=== PATIENT | female | born 1950 | race African-American/Black ===

== ENCOUNTER 2016-05-02 16:15 | Emergency (ER) | payer OTHER ==
[2016-05-02 16:45] VITALS: BMI 31.1
--- NOTE | 2016-05-02 16:48 | PDOC ---
History of Present Illness <Genesis De La Cruz - Last Filed: 05/02/16 18:54> - General History Source: Patient, Family Exam Limitations: No Limitations - History of Present Illness Initial Comments: 05/02/16 17:53 The patient is a 65 year old female with significant past medical history of diabetes, hypertension, hyperlipidemia, [place] s/p stents x2 in march who presents today with weakness s/p mechanical fall that happened this afternoon. The patient states that she was in the bathroom when she misstepped and fell in the bathroom. She hit her forehead but denies any LOC. She also injured her bilateral shins. The patient states she is unable to walk today secondary to lightheadedness and weakness. The patient reports associated headache but denies any blurry vision. She denies any palpitations, chest pain, or SOB. She denies any abdominal pain, nausea, or vomiting. The patient denies any recent illness, fevers, or chills. 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) Diabetes: Yes HTN: Yes Hypercholesterolemia: Yes Liver Disease: Yes Suicide Attempt (Hx): No - Surgical History Cardiac Surgery: Yes (Stents) - Immunization History Immunization Up to Date: Yes - Psycho/Social/Smoking Cessation Hx Anxiety: No Suicidal Ideation: No Smoking Status: No Smoking History: Never smoked Have you smoked in the past 12 months: No Number of Cigarettes Smoked Daily: 0 If you are a former smoker, when did you quit?: 20 yrs ago Hx Alcohol Use: No Drug/Substance Use Hx: No Substance Use Type: None Hx Substance Use Treatment: No <Genesis De La Cruz - Last Filed: 05/02/16 18:54> <Mavis Wilson - Last Filed: 05/02/16 19:02> - Past Medical History Allergies/Adverse Reactions: Allergies Allergy/AdvReac Type Severity Reaction Status Date / Time No Known Allergies Allergy Verified 05/02/16 16:36 Home Medications: Ambulatory Orders Pravastatin Sodium [Pravachol -] 10 mg PO HS 01/13/13 Insulin (Novolog) [Novolog Flexpen -] 0 units SQ ACHS #0 pen 01/14/13 Mag Hydrox/Al Hydrox/Simeth [Mylanta Oral Suspension -] 30 ml PO Q6H PRN #0 cup 01/14/13 Amlodipine Besylate [Norvasc -] 5 mg PO DAILY #30 tablet 09/13/13 Aspirin [ASA -] 81 mg PO DAILY #30 tab.chew 09/13/13 Cholecalciferol (Vitamin D3) [Vitamin D3] 2,000 unit PO DAILY 07/18/15 Daclatasvir Dihydrochloride [Daklinza] 60 mg PO DAILY 07/18/15 Darunavir Ethanolate [Prezista -] 600 mg PO BID 07/18/15 Etravirine [Intelence -] 200 mg PO BID 07/18/15 Insulin (Levemir) [Levemir Flexpen -] 34 units SQ HS 07/18/15 Insulin Aspart [Novolog] 16 unit SQ TID 07/18/15 Ritonavir [Norvir] 100 mg PO BID 07/18/15 Sofosbuvir [Sovaldi] 400 mg PO DAILY 07/18/15 Gabapentin [Neurontin -] 300 mg PO TID 07/20/15 Lisinopril [Zestril] 30 mg PO DAILY 07/20/15 Amlodipine Besylate [Norvasc -] 5 mg PO DAILY tablet 07/22/15 Aspirin Coated [Ecotrin -] 81 mg PO DAILY tablet. 07/22/15 Clopidogrel Bisulfate [Plavix -] 75 mg PO DAILY tablet 07/22/15 Enoxaparin [Lovenox -] 40 mg SQ DAILY disp.syrin 07/22/15 Insulin (Levemir) [Levemir Vial] 34 units SQ HS ml 07/22/15 Metoprolol Succinate [Toprol XL -] 25 mg PO DAILY #0 tab.sr.24h 07/22/15 Pravastatin Sodium 10 mg PO HS 07/22/15 Review of Systems - Review of Systems Able to Perform ROS?: Yes Comments:: 05/02/16 17:53 GENERAL/CONSTITUTIONAL: +Weakness. No fever or chills. HEAD, EYES, EARS, NOSE AND THROAT: No change in vision. No ear pain or discharge. No sore throat. CARDIOVASCULAR: No chest pain or shortness of breath. RESPIRATORY: No cough, wheezing, or hemoptysis. GASTROINTESTINAL: No nausea, vomiting, diarrhea or constipation. GENITOURINARY: No dysuria, frequency, or change in urination. MUSCULOSKELETAL: +Bilateral castellanos pain. No joint or muscle swelling or pain. No neck or back pain. SKIN: No rash NEUROLOGIC: +Headache. No vertigo, loss of consciousness, or change in strength/ sensation. ENDOCRINE: No increased thirst. No abnormal weight change. HEMATOLOGIC/LYMPHATIC: No anemia, easy bleeding, or history of blood clots. ALLERGIC/IMMUNOLOGIC: No hives or skin allergy. 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 L sided vision intact. ENT: Auricles normal inspection, hearing grossly normal, nares patent, oropharynx clear without exudates. Moist mucosa NECK: Normal ROM, supple, no lymphadenopathy, JVD, or masses LUNGS: Breath sounds equal, clear to auscultation bilaterally. No wheezes, and no crackles HEART: Regular rate and rhythm, normal S1 and S2, no murmurs, rubs or gallops ABDOMEN: Soft, nontender, normoactive bowel sounds. No guarding, no rebound. No masses EXTREMITIES: Normal range of motion, no edema. No clubbing or cyanosis. No cords. +Ecchymosis to B/L shins NEUROLOGICAL: 4/5 strength RUE. 5/5 in remainder of extremities. R eye blindness. R facial droop. SKIN: Warm, Dry, normal turgor, no rashes or lesions noted. <Genesis De La Cruz - Last Filed: 05/02/16 18:54> - Vital Signs Last Vital Signs Temp Pulse Resp BP Pulse Ox 98.3 F 104 H 20 141/83 100 05/02/16 16:36 05/02/16 16:36 05/02/16 16:36 05/02/16 16:36 05/02/16 16:36 <Mavis Wilson - Last Filed: 05/02/16 19:02> ED Treatment Course - LABORATORY CBC & Chemistry Diagram: 05/02/16 18:00 05/02/16 18:00 <Genesis De La Cruz - Last Filed: 05/02/16 18:54> - LABORATORY CBC & Chemistry Diagram: 05/02/16 18:00 05/02/16 18:00 - RADIOLOGY Radiograph Interpretation: 05/02/16 19:[address]: Reviewed and interpreted by radiologist Jennifer Anne MD. Impression: Interval right subdural acute/subacute hemorrhage measuring up to 1.6 cm in transverse width, anteriorly with mass effect and shift of the midline structures to is the left side, approximately 9 mm. Subdural/extra- axial hemorrhage is seen along the right posterior parafalcine anterolisthesis extent right anterior parafalcine region. Likely tiny left anterior frontal acute subdural hemorrhage seen on axial image 23 only without mass effect. <Mavis Wilson - Last Filed: 05/02/16 19:02> Medical Decision Making - Critical Care Time Total Critical Care Time (minutes): 45 Critical Care Statement: The care of this patient involved high complexity decision making to prevent further life threatening deterioration of the patient 's condition and/or to evalute & treat vital organ system(s) failure or risk of failure. - Medical Decision Making 05/02/16 17:45 CT reviewed, +ICH on R side. Will add type and screen, coags, and transfuse with platelets, as patient is on aspirin and plavix. Will await official reading from radiology, then will call [facility] [place] for transfer. 05/02/16 18:46 Results discussed with daughters at bedside. Awaiting EMS arrival for transfer to [facility] [place]. Platelets are ready, will transfuse. Patient denies any pain. Will continue to monitor. <Genesis De La Cruz - Last Filed: 05/02/16 18:54> *DC/Admit/Observation/Transfer - Transfer to Acute Care Facility Receiving Facility: [facility]. Accepting Physician:: Dr. Elder <Genesis De La Cruz - Last Filed: 05/02/16 18:54> - Attestations Scribe Attestion: 05/02/16 17:15 Documentation prepared by Mavis Wilson, acting as medical coordinator pesticide use for Genesis De La Cruz MD. <Mavis Wilson - Last Filed: 05/02/16 19:02> Diagnosis at time of Disposition: Intracranial hemorrhage - Discharge Dispostion Disposition: TRANSFER ACUTE CARE/OTHER HOSP Condition at time of disposition: Guarded - Referrals Referrals: Lior Godfrey MD [Primary Care Provider] -
[2016-05-02] MEDS ORDERED: SODIUM CHLORIDE 1,000 ML IV STA (17:27)
[2016-05-02 18:07] LABS: BASOPHIL 1.6 % (0-2.0); EOSINOPHIL 0.4 % (0-4.5); MCH 29.8 pg (25.7-33.7); MCHC 31.9 g/dl (32.0-36.0); MEAN CELL VOLUME 93.4 fl (80-96); MEAN PLT VOLUME 8.5 fl (7.5-11.1); NEUTROPHILS 82.6 % (42.8-82.8); PLATELET COUNT 219 K/MM3 (134-434); RDW 14.3 % (11.6-15.6); WHITE BLOOD COUNT 7.5 K/mm3 (4.0-10.0)
[2016-05-02 18:34] LABS: ALBUMIN 3.4 g/dl (3.4-5.0); BILIRUBIN,TOTAL 0.4 mg/dL (0.2-1.0); CALCIUM 8.5 mg/dL (8.5-10.1); CREATININE 1.5 mg/dL (0.55-1.02); TOT PROT 7.6 g/dl (6.4-8.2)
[2016-05-02 18:38] LABS: INR 1.18 (0.82-1.09)
[2016-05-02 20:41] VITALS: BP 119/90; PULSE 89; TEMP 98.9
--- NOTE | 2016-05-03 11:13 | EKG ---
Test Reason : Blood Pressure : / mmHG Vent. Rate : 102 BPM Atrial Rate : 102 BPM P-R Int : 178 ms QRS Dur : 068 ms QT Int : 384 ms P-R-T Axes : 056 -06 050 degrees QTc Int : 500 ms POOR DATA QUALITY, INTERPRETATION MAY BE ADVERSELY AFFECTED SINUS TACHYCARDIA WITH PREMATURE ATRIAL COMPLEXES WITH ABERRANT CONDUCTION POSSIBLE LEFT ATRIAL ENLARGEMENT POSSIBLE ANTERIOR INFARCT (CITED ON OR BEFORE 20-JUL-2015) ABNORMAL ECG WHEN COMPARED WITH ECG OF 20-JUL-2015 11:32, ABERRANT CONDUCTION IS NOW PRESENT Confirmed by MICHAEL DINH MD ([id number]) on 05/03/2016 11:13:29 AM Referred By: Confirmed By:MICHAEL DNIH MD
== END 2016-05-02 19:56 | disposition short-term general hospital (02) ==
LOC: JER 16:15
PROC: 3E0337Z Introduction of Electrolytic and Water Balance Substance into Peripheral Vein, Percutaneous Approach (ICD-10-PCS; principal; 2016-05-02)
DX: S06.300A Unspecified focal traumatic brain injury without loss of consciousness, initial encounter (principal); W18.39XA Other fall on same level, initial encounter; Y93.89 Activity, other specified; Y92.002 Bathroom of unspecified non-institutional (private) residence as the place of occurrence of the external cause; E11.9 Type 2 diabetes mellitus without complications; I10 Essential (primary) hypertension; E78.5 Hyperlipidemia, unspecified; I25.2 Old myocardial infarction; I69.398 Other sequelae of cerebral infarction; Z95.5 Presence of coronary angioplasty implant and graft; K76.9 Liver disease, unspecified; Z79.4 Long term (current) use of insulin; Z87.891 Personal history of nicotine dependence
CPT/HCPCS: 36415; 36430; 70450-TC; 71010-TC; 72125-TC; 80053; 85025; 85610; 86850; 86900; 86901; 93005; 93010; 96360; 99285-25; P9034

== ENCOUNTER 2017-07-07 04:38 | Inpatient (IN) | payer OTHER ==
[2017-07-07] MEDS ORDERED: FUROSEMIDE 40 MG/4 ML INJECTABLE VIAL IVPUSH ONE ×2 (04:52→10:00)
[2017-07-07] MEDS ORDERED: NITROGLYCERIN SUBLINGUAL 1/150 0.4 MG TAB SL ONE (04:57)
[2017-07-07] MEDS ORDERED: FUROSEMIDE 40 MG/4 ML INJECTABLE VIAL ONE ×2 (04:58→12:50)
[2017-07-07] MEDS ORDERED: NITROGLYCERIN 2% OINTMENT - 1GM PACKET TD ONE ×2 (04:58→04:59)
--- NOTE | 2017-07-07 05:00 | PDOC ---
History of Present Illness <Evangelina Puente - Last Filed: 07/07/17 06:04> - General History Source: Patient, EMS Exam Limitations: No Limitations - History of Present Illness Initial Comments: This is a 66 YOF with h/o CHF, IDDM, HTN, HLD, [place] (s/p stent placement in 2015), and small SDH diagnosed 04/2016 who presents BIBA for SOB, cough with frothy sputum, and inability to lay down flat 2/2 SOB. She states that these symptoms feel exactly the same as her prior CHF exacerbations. She denies any recent fever, chest pain, abdominal pain, dysuria, or other symptoms. EMS measured her blood pressure to be >200 systolic when they arrived on scene. They gave her one sublingual NTG and placed her on CPAP. 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) COPD: No Diabetes: Yes HTN: Yes Hypercholesterolemia: Yes Liver Disease: Yes - Surgical History Cardiac Surgery: Yes (2 Stents) - Immunization History Immunization Up to Date: Yes - Suicide/Smoking/Psychosocial Hx Smoking Status: No Smoking History: Never smoked Have you smoked in the past 12 months: No Number of Cigarettes Smoked Daily: 0 If you are a former smoker, when did you quit?: 20 yrs ago Information on smoking cessation initiated: No Hx Alcohol Use: No Drug/Substance Use Hx: No Substance Use Type: None Hx Substance Use Treatment: No <Amalia Downing - Last Filed: 07/07/17 06:52> - Past Medical History Allergies/Adverse Reactions: Allergies Allergy/AdvReac Type Severity Reaction Status Date / Time No Known Allergies Allergy Verified 07/07/17 04:44 Home Medications: Ambulatory Orders Oxycodone HCl/Acetaminophen [Percocet 5-325 mg Tablet] 1 - 2 tab PO BID #6 tab MDD 2 02/28/17 Review of Systems - Review of Systems Able to Perform ROS?: Yes Constitutional: No: Chills, Fever, Unexplained wgt Loss HEENTM: No: Nose Congestion, Throat Pain Respiratory: Yes: Cough, Orthopnea, Shortness of Breath, Wheezing, Productive cough. No: Stridor Cardiac (ROS): No: Chest Pain, Palpitations ABD/GI: No: Constipated, Diarrhea, Nausea, Vomiting : No: Burning, Dysuria Musculoskeletal: No: Back Pain, Neck Pain Integumentary: No: Bruising, Rash Neurological: No: Headache, Numbness, Tingling, Weakness, Dizziness Endocrine: No: Unexplained Weight Gain, Unexplained Weight Loss <Amalia Downing - Last Filed: 07/07/17 06:52> *Physical Exam - Vital Signs Last Vital Signs Temp Pulse Resp BP Pulse Ox 83 14 175/101 98 07/07/17 05:16 07/07/17 05:16 07/07/17 05:16 07/07/17 05:16 <Evangelina Puente - Last Filed: 07/07/17 06:04> - Vital Signs Last Vital Signs Temp Pulse Resp BP Pulse Ox 92 H 36 H 108/107 92 L 07/07/17 04:44 07/07/17 04:44 07/07/17 04:44 07/07/17 04:44 - Physical Exam General Appearance: Yes: Nourished, Appropriately Dressed, Mild Distress, Obese , Other (presents on CPAP and appears anxious, answering questions appropriately , speaking in 2-3 word sentences) HEENT: positive: EOMI, SHWETA, Normal Voice, Hearing Grossly Normal, Other (right upper eyelid droop). negative: Scleral Icterus (R), Scleral Icterus (L), Nasal Congestion Neck: positive: Trachea midline, Supple. negative: Tender, Rigid Respiratory/Chest: positive: Respiratory Distress, Accessory Muscle Use, Rapid RR, Other (bilateral faint wheezes but only mild crackles). negative: Rhonchi, Stridor Cardiovascular: positive: Regular Rhythm, Regular Rate, S1, S2. negative: Edema , Murmur Gastrointestinal/Abdominal: positive: Normal Bowel Sounds, Soft. negative: Tender, Organomegaly, Pulsatile Mass, Guarding Musculoskeletal: positive: Normal Inspection. negative: Decreased Range of Motion, Vertebral Tenderness Extremity: positive: Normal Capillary Refill, Normal Inspection, Normal Range of Motion. negative: Tender, Cyanosis Integumentary: positive: Normal Color, Dry, Warm. negative: Erythema, Rash, Bruising Neurologic: positive: facility assistant II-XII NML intact (grossly), Fully Oriented, Alert, Normal Mood/Affect, Normal Response, Motor Strength 5/5. negative: EOM Palsy, Confused, Disoriented <Amalia Downing - Last Filed: 07/07/17 06:52> ED Treatment Course - LABORATORY CBC & Chemistry Diagram: 07/07/17 04:43 07/07/17 04:43 - ADDITIONAL ORDERS Additional order review: Laboratory Results 07/07/17 07/07/17 07/07/17 05:03 04:43 04:43 PT with INR INR PTT (Actin FS) VBG pH 7.21 L* POC VBG pCO2 61.2 H* POC VBG pO2 24.8 L Mixed VBG HCO3 23.5 Sodium 141 Potassium 4.8 Chloride 107 Carbon Dioxide 23 Anion Gap 11 BUN 30 H Creatinine 1.6 H Creat Clearance w eGFR 32.05 Random Glucose 286 H Lactic Acid 0.4 Calcium 8.0 L Magnesium 1.9 Total Bilirubin 0.2 D AST 20 ALT 20 Alkaline Phosphatase 69 Creatine Kinase 202 H Troponin I < 0.02 B-Natriuretic Peptide 5868.89 H Total Protein 6.6 Albumin 2.5 L 07/07/17 04:43 PT with INR 10.30 INR 0.91 PTT (Actin FS) 30.8 VBG pH POC VBG pCO2 POC VBG pO2 Mixed VBG HCO3 Sodium Potassium Chloride Carbon Dioxide Anion Gap BUN Creatinine Creat Clearance w eGFR Random Glucose Lactic Acid Calcium Magnesium Total Bilirubin AST ALT Alkaline Phosphatase Creatine Kinase Troponin I B-Natriuretic Peptide Total Protein Albumin 07/07/17 04:43 RBC 3.46 L MCV 94.2 MCHC 32.9 RDW 13.8 MPV 9.2 Neutrophils % 73.0 Lymphocytes % 17.1 D Monocytes % 6.9 Eosinophils % 2.3 D Basophils % 0.7 - Medications Given in the ED: ED Medications Discontinued Medications Generic Name Dose Route Start Last Admin Trade Name Freq PRN Reason Stop Dose Admin Furosemide 40 mg 07/07/17 04:52 07/07/17 05:01 Lasix Injection - IVPUSH 07/07/17 04:53 40 mg ONCE ONE Administration Nitroglycerin 0.8 mg 07/07/17 04:57 07/07/17 05:01 Nitrostat - SL 07/07/17 04:58 0.8 mg ONCE ONE Administration Nitroglycerin 1 inch 07/07/17 04:58 07/07/17 05:01 Nitro-Bid 2% Paste - TD 07/07/17 04:59 1 inch ONCE ONE Administration <Evangelina Puente - Last Filed: 07/07/17 06:04> - LABORATORY CBC & Chemistry Diagram: 07/07/17 04:43 07/07/17 04:43 - RADIOLOGY Radiology Studies Ordered: Category Date Time Status CHEST X-RAY PORTABLE* [RAD] Stat Radiology 07/07/17 04:48 Ordered <Amalia Downing - Last Filed: 07/07/17 06:52> Medical Decision Making - Medical Decision Making 66 YOF with h/o CHF who p/w SOB, cough, and orthopnea which she states is the same as her prior CHF. On exam VS notable for BP 180/107, RR 36, pulse ox 92%, patient appears anxious on CPAP. Diffuse wheezes, mild crackles, speaking in 2-3 word sentences, no pitting edema. DDX IBNLT CHF exac, COPD exac, PNA, bronchitis, LL pneumothorax, PE, or other more serious etiology. Ordered is CBCD CMP Mg Cardiac panel BNP VBG Lactate BCx UA Cx EKG CXR. Also #2 sublingual NTG and NTG paste, 40 mg Lasix IV push, BiPAP. 07/07/17 06:05 EKG shows sinus rhythm, rate 91, normal axis, SYf=323, flipped t waves in I, aVL , V5-6 which are new. CXR shows pulmonary vascular congestion, cephalization of vasculature Labs notable for BUN/Cr 30/1.6, VBG pH 7.21 and pCO2 61.2, BG 286, BNP in the 5800's. Microblog sent to [facility] for admission for CHF exacerbation, EKG changes, CKD. ABG results pH/pCO2/pO2/HCO3 7.26/49.9/45.4/21.8 on 50% FiO2, likely mixed specimen. RT called to repeat ABG. <Amalia Downing - Last Filed: 07/07/17 06:52> *DC/Admit/Observation/Transfer <Evangelina Puente - Last Filed: 07/07/17 06:04> <Amalia Downing - Last Filed: 07/07/17 06:52> Diagnosis at time of Disposition: Acute pulmonary edema, BiPAP (biphasic positive airway pressure) dependence, Acute electrocardiogram changes CHF exacerbation Qualifiers: Heart failure type: unspecified Qualified Code(s): I50.9 - Heart failure, unspecified HTN (hypertension) Qualifiers: Hypertension type: unspecified Qualified Code(s): I10 - Essential (primary) hypertension CKD (chronic kidney disease) Qualifiers: Chronic kidney disease stage: unspecified stage Qualified Code(s): N18.9 - Chronic kidney disease, unspecified - Discharge Dispostion Condition at time of disposition: Guarded
--- NOTE | 2017-07-07 05:04 | PDOC ---
Attending Attestation - Resident Resident Name: irma - ED Attending Attestation I have performed the following: I have examined & evaluated the patient, The case was reviewed & discussed with the resident, I agree w/resident's findings & plan - HPI HPI: 07/07/17 05:01 Pt comes with COPD like wheezing and likely CHF exacerbation. Her BP was 220 systolic on arrival; EMS gave the pt 1 SL NTG; We gave 2 more in the ER and placed her on BiPAP. 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 - Physicial Exam PE: 07/07/17 19:29 Agree with resident exam. Pt has bilateral decreased breath sounds bilaterally. She appears to be in APE. - Medical Decision Making 07/07/17 19:29 Pt much improved after her BP was brought under control and she was placed on BiPAP. Initial ph was 7.2; slightly improved on second draw. Pt was signed out to the day team, and they will follow labs, optimize her BiPAP and diurese her and admit her for further eval and treatment. <Evangelina Puente - Last Filed: 07/07/17 19:31> Heart Score/ECG Review - ECG Intrepretation Comment:: 07/07/17 06:31 completed @4:46:21 Normal sinus rhythm Possible left atrial enlargement T wave abnormality, consider inferolateral ischemia <Tariq Gonzalez - Last Filed: 07/07/17 06:31>
[2017-07-07 05:17] LABS: BASO % 0.7 % (0-2.0); EOS % 2.3 % (0-4.5); HEMATOCRIT 32.6 % (32.4-45.2); HEMOGLOBIN 10.7 GM/dL (10.7-15.3); LYMPH % 17.1 % (8-40); MCHC 32.9 g/dl (32.0-36.0); MEAN CELL VOLUME 94.2 fl (80-96); MEAN PLT VOLUME 9.2 fl (7.5-11.1); MONO % 6.9 % (3.8-10.2); PLATELET COUNT 185 K/MM3 (134-434); RBC 3.46 M/mm3 (3.60-5.2); RDW 13.8 % (11.6-15.6); WHITE BLOOD COUNT 6.4 K/mm3 (4.0-10.0)
[2017-07-07 05:30] LABS: INR 0.91 (0.82-1.09); PROTHROMBIN TIME (PATIENT) 10.3 SEC (9.98-11.88)
[2017-07-07 05:32] LABS: ACTIVATED PTT 30.8 SECONDS (26.9-34.4)
[2017-07-07 05:45] LABS: ALBUMIN 2.5 g/dl (3.4-5.0); ANION GAP 11 (8-16); BILIRUBIN,TOTAL 0.2 mg/dL (0.2-1.0); BLOOD UREA NITROGEN 30 mg/dL (7-18); CHLORIDE 107 mmol/L (98-107); CO2 23 mmol/L (21-32); CREATININE 1.6 mg/dL (0.55-1.02); GLUCOSE,RANDOM 286 mg/dL (74-106); MAGNESIUM 1.9 mg/dL (1.8-2.4); POTASSIUM 4.8 mmol/L (3.5-5.1); SGOT/AST 20 U/L (15-37); SGPT/ALT 20 U/L (12-78); SODIUM 141 mmol/L (136-145); TOT PROT 6.6 g/dl (6.4-8.2)
[2017-07-07 05:47] LABS: VENOUS PO2 24.8 mmHg (28-48)
[2017-07-07 05:48] LABS: ALK PHOS 69 U/L (45-117); N-TERMINAL BNP 5868.89 pg/ml (5-125)
[2017-07-07 05:51] LABS: VENOUS PC02 61.2 mmHg (38-52); VENOUS PH 7.21 (7.32-7.42)
[2017-07-07 06:22] LABS: ARTERIAL BLOOD GAS BASE EXCESS -4.7 meq/l (-2-2); ARTERIAL BLOOD GAS PCO2 49.9 mmHg (35-45); ARTERIAL BLOOD GAS pH 7.26 (7.35-7.45); CARBOXYHEMOGLOBIN 0.9 gm% (0.5-2.0)
[2017-07-07 06:28] LABS: ARTERIAL BLD GAS O2 SATURATION 73.6 % (90-98.9); ARTERIAL BLOOD GAS PO2 45.4 mmHg (80-100)
[2017-07-07] MEDS ORDERED: ASPIRIN 325 MG TABLET PO ONE (06:58)
[2017-07-07 07:01] LABS: URINE APPEARANCE CLEAR; URINE BILIRUBIN NEGATIVE (NEGATIVE); URINE BLOOD NEGATIVE (NEGATIVE); URINE COLOR STRAW; URINE GLUCOSE (UA) 2+ (NEGATIVE); URINE KETONE NEGATIVE (NEGATIVE); URINE LEUK ESTERASE NEGATIVE (NEGATIVE); URINE NITRITE NEGATIVE (NEGATIVE); URINE UROBILINOGEN NEGATIVE mg/dL (0.2-1.0)
[2017-07-07 07:03] LABS: URINE PROTEIN 3+ (NEGATIVE)
[2017-07-07] MEDS ORDERED: ALBUTEROL SO4 2.5/IPRATROPIUM 0.5 INH SOL 3 ML VIAL.NEB. NEB ONE ×2 (07:04→07:52)
[2017-07-07 07:05] LABS: ARTERIAL BLD GAS O2 SATURATION 98.8 % (90-98.9); ARTERIAL BLOOD GAS BASE EXCESS -5.2 meq/l (-2-2); ARTERIAL BLOOD GAS PCO2 43.6 mmHg (35-45)
[2017-07-07 07:06] LABS: EPI CELLS RARE /HPF (FEW); URINE BACTERIA FEW /hpf (NONE SEEN); URINE HYALINE CAST 4 /lpf; URINE MUCUS RARE
[2017-07-07 07:15] LABS: ALLENS TEST POSITIVE
--- NOTE | 2017-07-07 07:30 | HP ---
CHIEF COMPLAINT: "Im short of breath" PCP-Ruth Ann Pham Cardio: From [facility] in HISTORY OF PRESENT ILLNESS: This is a 66 yo F with PMH of CHF, DE (s/p stent placement 03/2016), IDDM, HTN, HLD, HIV and small SDH 04/2016, who presents due to SOB and cough productive of clear sputum x1 w. She also report 15 lb weigh gain x 3 mo and mild orthopnea ( sleeps on 1 pillow). She denies LE edema, abdominal discomfort or nausea. She reports skipping her home lisinopril and amlodipine x 2 days and states that her PCP dcd her lasix 4 mo ago because it causes gout (has never had gout). She states that current symptoms are similar to last CHF exacerbation (years ago). Last cardio visit was in Dec 2016 and last TTE 2015 showed normal EF and no severe valvular pathology. She geraldine sick contacs, f/c, doaphoresis, cp or discomfort, abd pain, constipation, diarrhea, dysuria, weakness, numbness, dysarthria, h/a. BP was >200 per EMS, who administered NTG and in ED BP was 180 systolic on arrival. Patient was placed on BIPAP by EMS. Patient currently feels better. ER course was notable for: (1)EKG (new lateral t inversions, sr; CXR bibasilar congestion (2)labs BNP >5000 (3)NTG, asa, lasix 40 IV Recent Travel: denies PAST MEDICAL HISTORY: as above PAST SURGICAL HISTORY: as above Social History: lives at home Smoking: denies Alcohol: denies Drugs:denies Family History: HTN Allergies No Known Allergies Allergy (Verified 07/07/17 04:44) HOME MEDICATIONS: Home Medications Medication Instructions Recorded Oxycodone HCl/Acetaminophen 1 - 2 tab PO BID #6 tab MDD 2 02/28/17 [Percocet 5-325 mg Tablet] Furosemide [Lasix -] 40 mg PO DAILY 07/07/17 Insulin (Levemir) [Levemir Vial] 34 units SQ DAILY 07/07/17 Insulin Aspart [Novolog] 16 unit SQ TID 07/07/17 Iron Polysac/Iron Heme/FA/B12 07/07/17 Lisinopril [Prinivil -] 40 mg PO DAILY 07/07/17 Metoprolol Tartrate 50 mg PO DAILY 07/07/17 Pravastatin Sodium [Pravachol (Nf)] 40 mg PO HS 07/07/17 Raltegravir [Isentress -] 400 mg PO BID 07/07/17 REVIEW OF SYSTEMS CONSTITUTIONAL: Absent: fever, chills, diaphoresis, generalized weakness, malaise, loss of appetite HEENT: Absent: rhinorrhea, nasal congestion, throat pain CARDIOVASCULAR: Absent: chest pain, syncope, palpitations, irregular heart rate, lightheadedness , peripheral edema RESPIRATORY: Absent: stridor, hemoptysis GASTROINTESTINAL: Absent: abdominal pain, abdominal distension, nausea, vomiting, diarrhea, constipation GENITOURINARY: Absent: dysuria MUSCULOSKELETAL: Absent: back pain SKIN: Absent: rash, itching, pallor HEMATOLOGIC/IMMUNOLOGIC: Absent: frequent infections ENDOCRINE: Absent: unexplained weight gain, unexplained weight loss, heat intolerance, cold intolerance NEUROLOGIC: Absent: headache, focal weakness or paresthesias PSYCHIATRIC: Absent: anxiety, depression PHYSICAL EXAMINATION Vital Signs - 24 hr 07/07/17 07/07/17 07/07/17 04:44 05:00 05:16 Pulse Rate 92 H Pulse Rate [ 83 Apical] Respiratory 36 H 14 Rate Blood Pressure 108/107 Blood Pressure 175/101 [Right Arm] O2 Sat by Pulse 92 L 97 98 Oximetry (%) 07/07/17 07/07/17 06:39 07:16 Pulse Rate Pulse Rate [ 74 Apical] Respiratory 14 Rate Blood Pressure Blood Pressure 141/82 [Right Arm] O2 Sat by Pulse 100 100 Oximetry (%) GENERAL: Awake, alert, and fully oriented, in no acute distress, wears BIPAP but fatigued easily on RA. HEAD: Normal with no signs of trauma. EYES: R eye severe catarract, blind. L pupil round and reactive to light, extraocular movements intact, sclera anicteric, conjunctiva clear. No lid lag. EARS, NOSE, THROAT: Moist mucous membranes. NECK: supple + JVD at 30 degree recline, + hepatojugular reflex, no mass LUNGS: biasilar ronchi HEART: Regular rate and rhythm, normal S1 and S2 systolic murmur grade ii at apex ABDOMEN: Soft, nontender, not distended, normoactive bowel sounds, no guarding, no rebound, no masses. MUSCULOSKELETAL: Normal range of motion at all joints. No bony deformities or tenderness. No CVA tenderness. UPPER EXTREMITIES: 2+ pulses, warm, well-perfused. No cyanosis. No clubbing. No peripheral edema. LOWER EXTREMITIES: 1+ pulses, warm, well-perfused. No calf tenderness. trace peripheral edema. NEUROLOGICAL: Cranial nerves II-XII grossly intact. Normal speech. PSYCHIATRIC: Cooperative. Good eye contact. Appropriate mood and affect. SKIN: Warm, dry Laboratory Results - last 24 hr 07/07/17 07/07/17 07/07/17 04:43 04:43 04:43 WBC 6.4 RBC 3.46 L Hgb 10.7 D Hct 32.6 MCV 94.2 MCH 31.0 MCHC 32.9 RDW 13.8 Plt Count 185 MPV 9.2 Neutrophils % 73.0 Lymphocytes % 17.1 D Monocytes % 6.9 Eosinophils % 2.3 D Basophils % 0.7 PT with INR 10.30 INR 0.91 PTT (Actin FS) 30.8 Anticoagulation Therapy Puncture Site ABG pH ABG pCO2 at Pt Temp ABG pO2 at Pt Temp ABG HCO3 ABG O2 Sat (Measured) ABG O2 Content ABG Base Excess Rahul Test VBG pH POC VBG pCO2 POC VBG pO2 Mixed VBG HCO3 Carboxyhemoglobin Methemoglobin O2 Delivery Device Oxygen Flow Rate Vent Mode Vent Rate Mechanical Rate Pressure Support Vent Sodium 141 Potassium 4.8 Chloride 107 Carbon Dioxide 23 Anion Gap 11 BUN 30 H Creatinine 1.6 H Creat Clearance w eGFR 32.05 Random Glucose 286 H Lactic Acid Calcium 8.0 L Magnesium 1.9 Total Bilirubin 0.2 D AST 20 ALT 20 Alkaline Phosphatase 69 Creatine Kinase 202 H Creatine Kinase Index 1.8 CK-MB (CK-2) 3.727 H Troponin I < 0.02 B-Natriuretic Peptide 5868.89 H Total Protein 6.6 Albumin 2.5 L Urine Color Urine Appearance Urine pH Ur Specific Chapman Urine Protein Urine Glucose (UA) Urine Ketones Urine Blood Urine Nitrite Urine Bilirubin Urine Urobilinogen Ur Leukocyte Esterase Urine WBC (Auto) Urine RBC (Auto) Ur Epithelial Cells Urine Bacteria Hyaline Casts Urine Mucus Blood Type Antibody Screen 07/07/17 07/07/17 07/07/17 04:43 05:03 05:03 WBC RBC Hgb Hct MCV MCH MCHC RDW Plt Count MPV Neutrophils % Lymphocytes % Monocytes % Eosinophils % Basophils % PT with INR INR PTT (Actin FS) Anticoagulation Therapy Puncture Site ABG pH ABG pCO2 at Pt Temp ABG pO2 at Pt Temp ABG HCO3 ABG O2 Sat (Measured) ABG O2 Content ABG Base Excess Rahul Test VBG pH 7.21 L* POC VBG pCO2 61.2 H* POC VBG pO2 24.8 L Mixed VBG HCO3 23.5 Carboxyhemoglobin Methemoglobin O2 Delivery Device Oxygen Flow Rate Vent Mode Vent Rate Mechanical Rate Pressure Support Vent Sodium Potassium Chloride Carbon Dioxide Anion Gap BUN Creatinine Creat Clearance w eGFR Random Glucose Lactic Acid 0.4 Calcium Magnesium Total Bilirubin AST ALT Alkaline Phosphatase Creatine Kinase Creatine Kinase Index CK-MB (CK-2) Troponin I B-Natriuretic Peptide Total Protein Albumin Urine Color Urine Appearance Urine pH Ur Specific [place] Urine Protein Urine Glucose (UA) Urine Ketones Urine Blood Urine Nitrite Urine Bilirubin Urine Urobilinogen Ur Leukocyte Esterase Urine WBC (Auto) Urine RBC (Auto) Ur Epithelial Cells Urine Bacteria Hyaline Casts Urine Mucus Blood Type A POSITIVE Antibody Screen Negative 07/07/17 07/07/17 07/07/17 06:02 06:04 06:30 WBC RBC Hgb Hct MCV MCH MCHC RDW Plt Count MPV Neutrophils % Lymphocytes % Monocytes % Eosinophils % Basophils % PT with INR INR PTT (Actin FS) Anticoagulation Therapy No Result Required. Puncture Site No Result Required. Right brachial ABG pH 7.26 L 7.30 L ABG pCO2 at Pt Temp 49.9 H 43.6 ABG pO2 at Pt Temp 45.4 L* 187.0 H* ABG HCO3 21.8 L 20.7 L ABG O2 Sat (Measured) 73.6 L* 98.8 ABG O2 Content 10.4 L 17.2 ABG Base Excess -4.7 L -5.2 L Rahul Test No Result Required. Positive VBG pH POC VBG pCO2 POC VBG pO2 Mixed VBG HCO3 Carboxyhemoglobin 0.9 Methemoglobin 1.5 O2 Delivery Device No Result Required. Bipap Oxygen Flow Rate No Result Required. 50% Vent Mode No Result Required. Vent Rate No Result Required. 14 Mechanical Rate No Result Required. Pressure Support Vent No Result Required. 12/4 Sodium Potassium Chloride Carbon Dioxide Anion Gap BUN Creatinine Creat Clearance w eGFR Random Glucose Lactic Acid Calcium Magnesium Total Bilirubin AST ALT Alkaline Phosphatase Creatine Kinase Creatine Kinase Index CK-MB (CK-2) Troponin I B-Natriuretic Peptide Total Protein Albumin Urine Color Straw Urine Appearance Clear Urine pH 5.0 Ur Specific Chapman 1.011 Urine Protein 3+ H Urine Glucose (UA) 2+ H Urine Ketones Negative Urine Blood Negative Urine Nitrite Negative Urine Bilirubin Negative Urine Urobilinogen Negative Ur Leukocyte Esterase Negative Urine WBC (Auto) 13 Urine RBC (Auto) 5 Ur Epithelial Cells Rare Urine Bacteria Few Hyaline Casts 4 Urine Mucus Rare Blood Type Antibody Screen ASSESSMENT/PLAN: This is a 66 yo F with PMH of CHF, DE (s/p stent placement 03/2016), IDDM, HTN, HLD, HIV and small SDH 04/2016, who presents due to SOB and cough productive of clear sputum x1 w. Acute CHF exacerbation in setting of CAD -clinical volume overload, BNP >5k (baseline 500), CXR bibasilar congestion -possibly due to reported medication noncompliance, uncontrolled HTN -s/p IV lasox 40 in ed with symptomatic improvement,give another 40 IV, then 40 IV daily -TTE -strict I and PO, daily weights -limit Na intake to to gm/d, limit H2O intake -High O2 content on Abg; continue bipap at lowest O2 setting to reduce pulm interstitial edema until afternoon, then switch to NC as tolerated. -Cardio consult -Trop -x1; trend one more; f/u TFTs -tele monitoring HTN Emergency with history of SDH -Systolic >200 in ems, 180 in ED with end organ damage (CHF, NÉSTOR), no neuro deficits -Resolved with NGT and IV lasix -BP goal today 150-160 mmHG systolic, but long tern goal <110 mmHg -Continue IV Lasix (80 total today, 40 daily tomorrow) -resume home Lopressor 100 bid -Hold home norvasc 10 d today to avoid dropping pressure too much; restart tomorrow Mild NÉSTOR acute on chronic -prerenal; BUN/creat 30/1.6, baseline 1.4-1.5 -expect improvement with diuresis; trend creat IDDM -Levemir 34 HS -ISS, BGM ACHS -f/u A1C HLD -f/u lipid panel -continue statin HIV -resume haart FEN fluid restrict f/u mag/phos Na restricted diabetic diet Hep sq ADM tele PHARMACY CLOSED SUN, PLEASE REC HOME MEDS ON MON Problem List - Problem (1) NÉSTOR (acute kidney injury) Code(s): N17.9 - ACUTE KIDNEY FAILURE, UNSPECIFIED (2) Hypertensive emergency Code(s): I16.1 - HYPERTENSIVE EMERGENCY (3) Acute electrocardiogram changes Code(s): R94.31 - ABNORMAL ELECTROCARDIOGRAM [ECG] [EKG] (4) Acute pulmonary edema Code(s): J81.0 - ACUTE PULMONARY EDEMA (5) CAD (coronary artery disease) Code(s): I25.10 - ATHSCL HEART DISEASE OF [place] CORONARY ARTERY W/O ANG PCTRS (6) CHF exacerbation Code(s): I50.9 - HEART FAILURE, UNSPECIFIED Qualifiers: Heart failure type: unspecified Qualified Code(s): I50.9 - Heart failure, unspecified (7) CKD (chronic kidney disease) Code(s): N18.9 - CHRONIC KIDNEY DISEASE, UNSPECIFIED Qualifiers: Chronic kidney disease stage: unspecified stage Qualified Code(s): N18.9 - Chronic kidney disease, unspecified (8) Diabetes Code(s): E11.9 - TYPE 2 DIABETES MELLITUS WITHOUT COMPLICATIONS (9) HIV (human immunodeficiency virus infection) Code(s): Z21 - ASYMPTOMATIC HUMAN IMMUNODEFICIENCY VIRUS INFECTION STATUS (10) HTN (hypertension) Code(s): I10 - ESSENTIAL (PRIMARY) HYPERTENSION Qualifiers: Hypertension type: unspecified Qualified Code(s): I10 - Essential (primary ) hypertension (11) Hyperlipidemia Code(s): E78.5 - HYPERLIPIDEMIA, UNSPECIFIED (12) Obesity Code(s): E66.9 - OBESITY, UNSPECIFIED Visit type - Emergency Visit Emergency Visit: Yes Care time: The patient presented to the Emergency Department on the above date and was hospitalized for further evaluation of their emergent condition. - New Patient This patient is new to me today: Yes Date on this admission: 07/07/17 - Critical Care Critical Care patient: No Hospitalist Screening - Colonoscopy Questionnaire Colonoscopy Questionnaire: Colonoscopy Questionnaire - Patient: 50 - 75 years old and never had a screening colonoscopy: Yes History of colon or rectal polyps, or CA: No History of IBD, Crohn's disease or UC: No History of abdominal radiation therapy as a child: No - Relative: 1 with colon or rectal CA, or polyps at age 60 or younger: No Colon or rectal CA diagnosed at age 45 or younger: No Multiple relatives with colon or rectal CA: No - Outcome: Screening Result: Positive Screen
[2017-07-07] MEDS ORDERED: ASPIRIN 325 MG TABLET ONE (07:52)
[2017-07-07 09:36] LABS: CHOLESTEROL 423 mg/dL (50-200); TRIGLYCERIDES 466 mg/dL (35-160)
[2017-07-07 09:42] LABS: HDL CHOLESTEROL 75 mg/dL (40-60); LDL CHOLESTEROL (ONLY SJRH) 208 mg/dL (5-100)
[2017-07-07] MEDS ORDERED: RALTEGRAVIR POTASSIUM 400 MG TAB PO SCH (10:00)
[2017-07-07] MEDS ORDERED: METOPROLOL TARTRATE 50 MG TABLET (FP) PO SCH (10:00)
[2017-07-07 11:14] LABS: PHOSPHOROUS 4.3 mg/dL (2.5-4.9)
[2017-07-07] MEDS ORDERED: [UNRECOGNIZED DRUG - OTHER] PO SCH (12:15)
[2017-07-07] MEDS ORDERED: CLOPIDOGREL BISULFATE 75 MG TABLET (FP) PO SCH (12:15)
[2017-07-07] MEDS ORDERED: ASPIRIN 81 MG CHEWABLE TABLETS PO SCH (12:15)
[2017-07-07 12:21] VITALS: BMI 31.1
[2017-07-07] MEDS ORDERED: CLOPIDOGREL BISULFATE 75 MG TABLET (FP) ONE (12:49)
[2017-07-07] MEDS ORDERED: ASPIRIN 81 MG CHEWABLE TABLETS ONE (12:49)
[2017-07-07] MEDS ORDERED: INSULIN REGULAR HUMAN 100 UNITS/ML *VIAL ONE (12:50)
[2017-07-07] MEDS ORDERED: HEPARIN NA (PORCINE) 5,000 UNITS/ML 1ML VIAL ONE (12:50)
[2017-07-07] MEDS: HEPARIN NA (PORCINE) 5,000 UNITS/ML 1ML VIAL SQ SCH ×3 (12:58→22:00)
[2017-07-07] MEDS: ASPIRIN COATED 81 MG TABLET.EC PO SCH (12:58)
[2017-07-07] MEDS: INSULIN SLIDING SCALE (NOVOLOG) 1 VIAL SQ SCH ×3 (12:59→22:01)
[2017-07-07] MEDS: CLOPIDOGREL BISULFATE 75 MG TABLET (FP) PO SCH (12:59)
[2017-07-07] MEDS: ETRAVIRINE 100 MG TABLET PO SCH ×2 (15:29→22:02)
[2017-07-07] MEDS: DARUNAVIR ETHANOLATE 600 MG TAB PO SCH ×2 (15:29→22:03)
[2017-07-07] MEDS: RALTEGRAVIR POTASSIUM 400 MG TAB PO SCH ×2 (15:29→22:02)
--- NOTE | 2017-07-07 17:42 | PN ---
Teaching Attending Note Name of Resident: Modesta Boyd ATTENDING PHYSICIAN STATEMENT I saw and evaluated the patient. I reviewed the resident's note and discussed the case with the resident. I agree with the resident's findings and plan as documented. SUBJECTIVE: 66F with CHF presents with SOB LE edema, wt gain OBJECTIVE: Lugns: rales bibasilar RRR nom/r/g BNP >5K trop negative ASSESSMENT AND PLAN: Decompensated heart failure IV Lasix echo now off bipap and on 3L NC saturating 100% continue BB at same dose Cardiology eval
--- NOTE | 2017-07-07 17:51 | CON.CARD ---
Consult Consult Specialty:: cardiology Reason for Consultation:: shortness of breath; hypertensive urgency - History of Present Illness Chief Complaint: Pt A&Ox3; denies dyspnea or chest pain presently. History of Present Illness: This is a 66 YO black woman with h/o diastolic CHF, IDDM, HTN, obesity, sedentary lifestyle, HLD, ?SC (s/p stent placement in 03/2016 at [facility]; also had a stent several years ago at [facility]), ?sleep apnea, and small SDH diagnosed 04/2016, who presents BIBA for SOB, cough with frothy sputum, and inability to lay down flat due to SOB. She states that these symptoms feel exactly the same as her prior CHF exacerbations. She denies any recent fever, chest pain, abdominal pain, dysuria, or other symptoms. EMS measured her blood pressure to be >200 systolic when they arrived on scene. They gave her one sublingual NTG and placed her on CPAP. - History Source History Provided By: Patient, Medical Record Limitations to Obtaining History: No Limitations - Past Medical History Cardio/Vascular: Yes: CAD, CHF, HTN, Hyperlipdemia Renal/: Yes: Renal Inusuff Reproductive: Yes: Postmenopausal ...: No Infectious Disease: Yes: HIV Psych: Yes: Anxiety Endocrine: Yes: Diabetes Mellitus - Past Surgical History Past Surgical History: Yes: Breast Biopsy, Stent (coronary) - Alcohol/Substance Use Hx Alcohol Use: No - Smoking History Smoking history: Never smoked Have you smoked in the past 12 months: No Aproximately how many cigarettes per day: 0 If you are a former smoker, when did you quit?: 20 yrs ago Home Medications - Allergies Allergies/Adverse Reactions: Allergies Allergy/AdvReac Type Severity Reaction Status Date / Time No Known Allergies Allergy Verified 07/07/17 04:44 - Home Medications Home Medications: Ambulatory Orders Aspirin 81 mg PO DAILY 07/07/17 Cholecalciferol (Vitamin D3) [D-2000] 2,000 unit PO DAILY 07/07/17 Clopidogrel Bisulfate [Clopidogrel] 75 mg PO DAILY 07/07/17 Daclatasvir Dihydrochloride [Daklinza] 60 mg PO DAILY 07/07/17 Darunavir Ethanolate [Prezista -] 600 mg PO BID 07/07/17 Etravirine [Intelence -] 200 mg PO BID 07/07/17 Insulin Aspart (Niacinamide) [Fiasp 100 Unit/ml Vial] 16 unit SQ TID 07/07/17 Insulin Detemir [Levemir Flextouch] 34 unit SQ HS 07/07/17 Iron Polysac/Iron Heme/FA/B12 [Bifera Rx Tablet] 1 each PO ACBK 07/07/17 Lactic Acid [Lactinol Hx] 0 gm TP ASDIR 07/07/17 Lisinopril [Prinivil -] 40 mg PO DAILY 07/07/17 Metoprolol Succinate 50 mg PO DAILY 07/07/17 Pravastatin Sodium [Pravachol (Nf)] 40 mg PO DAILY 07/07/17 Raltegravir [Isentress -] 400 mg PO BID 07/07/17 Family Disease History - Family Disease History Family Disease History: Diabetes: Mother, Heart Disease: Mother Review of Systems - Review of Systems Constitutional: reports: Weakness Eyes: reports: No Symptoms HENT: reports: No Symptoms Neck: reports: No Symptoms Cardiovascular: reports: Shortness of Breath Respiratory: reports: SOB Musculoskeletal: reports: Muscle Weakness Neurological: reports: Weakness Psychiatric: reports: Anxiety - Risk Factors Known Risk Factors: Yes: Age, Hypercholesterolemia, Hypertension, Physical Inactivity Vital Signs: Vital Signs Temperature 97.7 F 07/07/17 15:20 Pulse Rate 80 07/07/17 15:20 Respiratory Rate 16 07/07/17 15:20 Blood Pressure 150/91 07/07/17 15:20 O2 Sat by Pulse Oximetry (%) 98 07/07/17 15:20 Constitutional: Yes: Well Nourished, Calm Eyes: Yes: WNL HENT: Yes: WNL Neck: Yes: WNL Respiratory: Yes: Diminished, Rales. No: Wheezes Gastrointestinal: Yes: Soft, Abdomen, Obese Renal/: No: Anuria Heart Sounds: Yes: S1, S2, S4 Murmur: Yes: Systolic Murmur, Grade 2 Edema: No Peripheral Pulses WNL: Yes Integumentary: Yes: WNL Neurological: Yes: Alert, Oriented - Other Data Labs, Other Data: CBC, BMP 07/07/17 04:43 07/07/17 04:43 INR, PTT INR 0.91 (0.82-1.09) 07/07/17 04:43 Troponin, BNP 07/07/17 07/07/17 04:43 09:00 Troponin I < 0.02 < 0.02 B-Natriuretic Peptide 5868.89 H Troponin, BNP 07/07/17 07/07/17 04:43 09:00 Troponin I < 0.02 < 0.02 B-Natriuretic Peptide 5868.89 H Abnormal Lab Results 07/07/17 07/07/17 07/07/17 04:43 04:43 05:03 RBC 3.46 L ABG pH ABG pCO2 at Pt Temp ABG pO2 at Pt Temp ABG HCO3 ABG O2 Sat (Measured) ABG O2 Content ABG Base Excess VBG pH 7.21 L* POC VBG pCO2 61.2 H* POC VBG pO2 24.8 L BUN 30 H Creatinine 1.6 H Random Glucose 286 H Hemoglobin A1c % Calcium 8.0 L Creatine Kinase 202 H CK-MB (CK-2) 3.727 H B-Natriuretic Peptide 5868.89 H Albumin 2.5 L Triglycerides Cholesterol Total LDL Cholesterol HDL Cholesterol Urine Protein Urine Glucose (UA) 07/07/17 07/07/17 07/07/17 06:02 06:04 06:30 RBC ABG pH 7.26 L 7.30 L ABG pCO2 at Pt Temp 49.9 H ABG pO2 at Pt Temp 45.4 L* 187.0 H* ABG HCO3 21.8 L 20.7 L ABG O2 Sat (Measured) 73.6 L* ABG O2 Content 10.4 L ABG Base Excess -4.7 L -5.2 L VBG pH POC VBG pCO2 POC VBG pO2 BUN Creatinine Random Glucose Hemoglobin A1c % Calcium Creatine Kinase CK-MB (CK-2) B-Natriuretic Peptide Albumin Triglycerides Cholesterol Total LDL Cholesterol HDL Cholesterol Urine Protein 3+ H Urine Glucose (UA) 2+ H 07/07/17 07/07/17 09:00 09:00 RBC ABG pH ABG pCO2 at Pt Temp ABG pO2 at Pt Temp ABG HCO3 ABG O2 Sat (Measured) ABG O2 Content ABG Base Excess VBG pH POC VBG pCO2 POC VBG pO2 BUN Creatinine Random Glucose Hemoglobin A1c % 8.1 H Calcium Creatine Kinase CK-MB (CK-2) B-Natriuretic Peptide Albumin Triglycerides 466 H Cholesterol 423 H Total LDL Cholesterol 208 H HDL Cholesterol 75 H Urine Protein Urine Glucose (UA) Imaging - Results Chest X-ray: Image Reviewed (CHF) EKG: Image Reviewed (NSR; LAE; IL T wave changes) Problem List - Problems (1) Stented coronary artery Assessment/Plan: TNI 0.02 x 2. EKG: NSR; inferolat T wave chages. Telemetry: NSR; no arryhthmias. F/u ECHO for LVEF, wall motion and thickness. Obtain records of 2017 stent, latest stress test. 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 Code(s): S62.616A - DISP FX OF PROXIMAL PHALANX OF RIGHT LITTLE FINGER, INIT Qualifiers: Encounter type: initial encounter Fracture type: closed Fracture alignment: nondisplaced Qualified Code(s): S62.646A - Nondisplaced fracture of proximal phalanx of right little finger, initial encounter for closed fracture (4) HTN (hypertension) Code(s): I10 - ESSENTIAL (PRIMARY) HYPERTENSION Qualifiers: Hypertension type: unspecified Qualified Code(s): I10 - Essential (primary ) hypertension (5) Hyperlipidemia Assessment/Plan: on statin; increase to 80 mg daily (LDL>200 mg/dL). Code(s): E78.5 - HYPERLIPIDEMIA, UNSPECIFIED (6) Hypertensive emergency Assessment/Plan: On metoprolol ER and furosemide. start lisinopril (HTN; DM; CAD, CHF) if BUN/Cr and electrolytes allow. Code(s): I16.1 - HYPERTENSIVE EMERGENCY (7) Obesity Code(s): E66.9 - OBESITY, UNSPECIFIED (8) Hypertriglyceridemia Assessment/Plan: education regarding diabetic/heart-helathy diet imperative. On high-dose statin now--f/u lipids, and consider fibrate as addition. Code(s): E78.1 - PURE HYPERGLYCERIDEMIA (9) HIV (human immunodeficiency virus infection) Code(s): Z21 - ASYMPTOMATIC HUMAN IMMUNODEFICIENCY VIRUS INFECTION STATUS (10) [place] cardiac risk >20% in next 10 years Assessment/Plan: f/u cardiac records (latest stent 2017 at [facility]). The need to change diet, reduce weight, and increase exercise was discussed. Code(s): Z91.89 - OTH PERSONAL RISK FACTORS, NOT ELSEWHERE CLASSIFIED (11) Sleep apnea Assessment/Plan: ?on CPAP at home; f/u sleep studies. Code(s): G47.30 - SLEEP APNEA, UNSPECIFIED
[2017-07-07] MEDS ORDERED: PT OWN MED DRAWER 7, Y5N ONE (21:59)
[2017-07-07] MEDS ORDERED: ATORVASTATIN CA 40 MG TABLET (FP) PO SCH (22:00)
[2017-07-07] MEDS: INSULIN DETEMIR 100 UNITS/ML MDV SQ SCH (22:00)
[2017-07-07] MEDS: ATORVASTATIN CA 80 MG TABLET (FP) PO SCH (22:00)
--- NOTE | 2017-07-07 23:56 | EKG ---
Test Reason : Blood Pressure : / mmHG Vent. Rate : 091 BPM Atrial Rate : 091 BPM P-R Int : 188 ms QRS Dur : 084 ms QT Int : 380 ms P-R-T Axes : 061 025 139 degrees QTc Int : 467 ms NORMAL SINUS RHYTHM POSSIBLE LEFT ATRIAL ENLARGEMENT T WAVE ABNORMALITY, CONSIDER INFEROLATERAL ISCHEMIA ABNORMAL ECG WHEN COMPARED WITH ECG OF 28-FEB-2017 17:41, CRITERIA FOR INFERIOR INFARCT ARE NO LONGER PRESENT T WAVE INVERSION NOW EVIDENT IN LATERAL LEADS Confirmed by MICHAEL CASPER MD [id number]) on 07/07/2017 11:56:36 PM Referred By: Confirmed By:MICHAEL CASPER MD
[2017-07-08 06:18] LABS: HEMATOCRIT 28.9 % (32.4-45.2); HEMOGLOBIN 9.6 GM/dL (10.7-15.3); MCHC 33.3 g/dl (32.0-36.0); MEAN CELL VOLUME 93.1 fl (80-96); MEAN PLT VOLUME 9.6 fl (7.5-11.1); PLATELET COUNT 179 K/MM3 (134-434); RDW 13.9 % (11.6-15.6); WHITE BLOOD COUNT 4.3 K/mm3 (4.0-10.0)
[2017-07-08] MEDS: HEPARIN NA (PORCINE) 5,000 UNITS/ML 1ML VIAL SQ SCH ×3 (06:27→21:41)
[2017-07-08] MEDS: INSULIN SLIDING SCALE (NOVOLOG) 1 VIAL SQ SCH ×4 (06:28→21:42)
[2017-07-08 06:43] LABS: ALBUMIN 2.3 g/dl (3.4-5.0); BLOOD UREA NITROGEN 45 mg/dL (7-18); CHLORIDE 109 mmol/L (98-107); POTASSIUM 4.1 mmol/L (3.5-5.1); SODIUM 144 mmol/L (136-145)
[2017-07-08 06:49] LABS: ALK PHOS 57 U/L (45-117); ANION GAP 8 (8-16); BILIRUBIN,TOTAL 0.3 mg/dL (0.2-1.0); CALCIUM 7.9 mg/dL (8.5-10.1); CO2 27 mmol/L (21-32); CREATININE 1.7 mg/dL (0.55-1.02); GLUCOSE,RANDOM 97 mg/dL (74-106); MAGNESIUM 1.9 mg/dL (1.8-2.4); SGOT/AST 16 U/L (15-37); SGPT/ALT 16 U/L (12-78); TOT PROT 5.8 g/dl (6.4-8.2)
--- NOTE | 2017-07-08 08:59 | PN ---
Progress Note, Physician History of Present Illness: This is a 66 YO black woman with h/o diastolic CHF, IDDM, HTN, obesity, sedentary lifestyle, HLD, ?[place] (s/p stent placement in 03/2016 at [facility]; also had a stent several years ago at [facility]), ?sleep apnea, and small SDH diagnosed 04/2016, who presents BIBA for SOB, cough with frothy sputum, and inability to lay down flat due to SOB. She states that these symptoms feel exactly the same as her prior CHF exacerbations. She denies any recent fever, chest pain, abdominal pain, dysuria, or other symptoms. EMS measured her blood pressure to be >200 systolic when they arrived on scene. They gave her one sublingual NTG and placed her on CPAP. - Current Medication List Current Medications: Active Medications Aspirin (Ecotrin -) 81 mg PO DAILY ON LICENSE OF [facility] Last Admin: 07/07/17 12:58 Dose: 81 mg Atorvastatin Calcium (Lipitor -) 80 mg PO HS ON LICENSE OF [facility] Last Admin: 07/07/17 22:00 Dose: 80 mg Clopidogrel Bisulfate (Plavix -) 75 mg PO DAILY ON LICENSE OF [facility] Last Admin: 07/07/17 12:59 Dose: 75 mg Darunavir (Prezista -) 600 mg PO BID ON LICENSE OF [facility] Last Admin: 07/07/17 22:03 Dose: 600 mg Etravirine (Intelence -) 200 mg PO BID ON LICENSE OF [facility] Last Admin: 07/07/17 22:02 Dose: 200 mg Furosemide (Lasix Injection -) 40 mg IVPUSH DAILY ON LICENSE OF [facility] Heparin Sodium (Porcine) (Heparin -) 5,000 unit SQ TID ON LICENSE OF [facility] Last Admin: 07/08/17 06:27 Dose: 5,000 unit Insulin Aspart (Novolog Vial Sliding Scale -) 1 vial SQ ACHS ON LICENSE OF [facility] PRN Reason: Protocol Last Admin: 07/08/17 06:28 Dose: Not Given Insulin Detemir (Levemir Vial) 34 units SQ HS ON LICENSE OF [facility] Last Admin: 07/07/17 22:00 Dose: 34 units Metoprolol Succinate (Toprol Xl -) 50 mg PO DAILY ON LICENSE OF [facility] Non-Formulary Medication (Daclatasvir Dihydrochloride [Daklinza]) 60 mg PO DAILY ON LICENSE OF [facility] Raltegravir (Isentress -) 400 mg PO BID ON LICENSE OF [facility] Last Admin: 07/07/17 22:02 Dose: 400 mg - Objective Vital Signs: Vital Signs Temperature 97.6 F 07/08/17 06:00 Pulse Rate 88 07/08/17 08:51 Respiratory Rate 18 07/08/17 08:51 Blood Pressure 180/96 07/08/17 08:51 O2 Sat by Pulse Oximetry (%) 99 07/07/17 22:00 Eyes: Yes: WNL, Conjunctiva Clear, EOM Intact HENT: Yes: WNL, Atraumatic, Normocephalic Neck: Yes: WNL, Supple, Trachea Midline Cardiovascular: Yes: WNL, Regular Rate and Rhythm Respiratory: Yes: WNL, Regular, CTA Bilaterally Gastrointestinal: Yes: WNL, Normal Bowel Sounds Genitourinary: Yes: WNL Musculoskeletal: Yes: WNL Extremities: Yes: WNL Edema: No Integumentary: Yes: WNL Neurological: Yes: WNL, Alert, Oriented ...Motor Strength: WNL Psychiatric: Yes: WNL Labs: CBC, BMP 07/08/17 05:15 07/08/17 05:15 INR, PTT INR 0.91 (0.82-1.09) 07/07/17 04:43 Assessment/Plan - Problems (1) Stented coronary artery Assessment/Plan: TNI 0.02 x 2. EKG: NSR; inferolat T wave chages. Telemetry: NSR; no arryhthmias. F/u ECHO for LVEF, wall motion and thickness. Obtain records of 2017 stent, latest stress test. 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 Code(s): S62.616A - DISP FX OF PROXIMAL PHALANX OF RIGHT LITTLE FINGER, INIT Qualifiers: Encounter type: initial encounter Fracture type: closed Fracture alignment: nondisplaced Qualified Code(s): S62.646A - Nondisplaced fracture of proximal phalanx of right little finger, initial encounter for closed fracture (4) HTN (hypertension) Code(s): I10 - ESSENTIAL (PRIMARY) HYPERTENSION Qualifiers: Hypertension type: unspecified Qualified Code(s): I10 - Essential (primary ) hypertension (5) Hyperlipidemia Assessment/Plan: on statin; increase to 80 mg daily (LDL>200 mg/dL). Code(s): E78.5 - HYPERLIPIDEMIA, UNSPECIFIED (6) Hypertensive emergency Assessment/Plan: On metoprolol ER and furosemide. start lisinopril (HTN; DM; CAD, CHF) if BUN/Cr and electrolytes allow. Code(s): I16.1 - HYPERTENSIVE EMERGENCY (7) Obesity Code(s): E66.9 - OBESITY, UNSPECIFIED (8) Hypertriglyceridemia Assessment/Plan: education regarding diabetic/heart-helathy diet imperative. On high-dose statin now--f/u lipids, and consider fibrate as addition. Code(s): E78.1 - PURE HYPERGLYCERIDEMIA (9) HIV (human immunodeficiency virus infection) Code(s): Z21 - ASYMPTOMATIC HUMAN IMMUNODEFICIENCY VIRUS INFECTION STATUS (10) [place] cardiac risk >20% in next 10 years Assessment/Plan: f/u cardiac records (latest stent 2017 at [facility]). The need to change diet, reduce weight, and increase exercise was discussed. Code(s): Z91.89 - OTH PERSONAL RISK FACTORS, NOT ELSEWHERE CLASSIFIED (11) Sleep apnea Assessment/Plan: ?on CPAP at home; f/u sleep studies. Code(s): G47.30 - SLEEP APNEA, UNSPECIFIED
[2017-07-08] MEDS: CLOPIDOGREL BISULFATE 75 MG TABLET (FP) PO SCH (09:24)
[2017-07-08] MEDS: ASPIRIN COATED 81 MG TABLET.EC PO SCH (09:24)
[2017-07-08] MEDS: RALTEGRAVIR POTASSIUM 400 MG TAB PO SCH ×2 (09:25→22:06)
[2017-07-08] MEDS: DARUNAVIR ETHANOLATE 600 MG TAB PO SCH ×2 (09:25→21:43)
[2017-07-08] MEDS: ETRAVIRINE 100 MG TABLET PO SCH ×2 (09:25→21:43)
[2017-07-08] MEDS ORDERED: FUROSEMIDE 40 MG/4 ML INJECTABLE VIAL IVPUSH SCH (10:00)
[2017-07-08] MEDS: amLODIPine BESYLATE 5 MG TABLET (FP) PO SCH (13:50)
--- NOTE | 2017-07-08 14:36 | PN ---
Teaching Attending Note Name of Resident: Dillon Cohen ATTENDING PHYSICIAN STATEMENT I saw and evaluated the patient. I reviewed the resident's note and discussed the case with the resident. I agree with the resident's findings and plan as documented. SUBJECTIVE: Patient says she feels less SOB. OBJECTIVE: Vital Signs Period Temp Pulse Resp BP Sys/Stallings Pulse Ox Last 24 Hr 97.4 F-98 F 80-98 16-20 131-180/79-96 98-100 HEART: S1S2, RRR LUNGS: Bibasilar rales ABDOMEN: Obese, soft, non-tender, non-distended, normal BS EXTREMITIES: No edema Laboratory Results - last 24 hr 07/07/17 07/07/17 07/08/17 16:42 21:40 05:15 WBC 4.3 D RBC 3.10 L Hgb 9.6 L D Hct 28.9 L MCV 93.1 MCH 31.0 MCHC 33.3 RDW 13.9 Plt Count 179 MPV 9.6 Sodium Potassium Chloride Carbon Dioxide Anion Gap BUN Creatinine Creat Clearance w eGFR POC Glucometer 158.97729 307.63610 Random Glucose Calcium Phosphorus Magnesium Total Bilirubin AST ALT Alkaline Phosphatase Total Protein Albumin 07/08/17 07/08/17 07/08/17 05:15 05:21 11:32 WBC RBC Hgb Hct MCV MCH MCHC RDW Plt Count MPV Sodium 144 Potassium 4.1 Chloride 109 H Carbon Dioxide 27 Anion Gap 8 BUN 45 H Creatinine 1.7 H Creat Clearance w eGFR 29.89 POC Glucometer 93.85148 211.62461 Random Glucose 97 Calcium 7.9 L Phosphorus 4.0 Magnesium 1.9 Total Bilirubin 0.3 D AST 16 ALT 16 Alkaline Phosphatase 57 Total Protein 5.8 L Albumin 2.3 L Current Medications Generic Name Dose Route Start Last Admin Trade Name Freq PRN Reason Stop Dose Admin Amlodipine Besylate 5 mg 07/08/17 12:15 07/08/17 13:50 Norvasc - PO 5 mg DAILY [facility] Administration Aspirin 81 mg 07/07/17 10:00 07/08/17 09:24 Ecotrin - PO 81 mg DAILY [facility] Administration Atorvastatin Calcium 80 mg 07/07/17 22:00 07/07/17 22:00 Lipitor - PO 80 mg HS W[facility]NER Administration Clopidogrel Bisulfate 75 mg 07/07/17 10:00 07/08/17 09:24 Plavix - PO 75 mg DAILY [facility] Administration Darunavir 600 mg 07/07/17 12:15 07/08/17 09:25 Prezista - PO 600 mg BID [facility] Administration Etravirine 200 mg 07/07/17 12:15 07/08/17 09:25 Intelence - PO 200 mg BID W[facility] Administration Furosemide 40 mg 07/08/17 10:00 07/08/17 09:24 Lasix Injection - IVPUSH 40 mg DAILY [facility] Administration Heparin Sodium (Porcine) 5,000 unit 07/07/17 10:00 07/08/17 13:50 Heparin - SQ 5,000 unit TID [facility] Administration Insulin Aspart 1 vial 07/07/17 11:00 07/08/17 11:33 Novolog Vial Sliding Scale - SQ 4 unit ACHS [facility] Administration Protocol Insulin Detemir 34 units 07/07/17 22:00 07/07/17 22:00 Levemir Vial SQ 34 units HS [facility] Administration Metoprolol Succinate 50 mg 07/08/17 10:00 07/08/17 09:24 Toprol Xl - PO 50 mg DAILY [facility] Administration Non-Formulary Medication 60 mg 07/07/17 12:15 Daclatasvir Dihydrochloride [Daklinza] PO DAILY [facility] Raltegravir 400 mg 07/07/17 12:15 07/08/17 09:25 Isentress - PO 400 mg BID W[facility] Administration ASSESSMENT AND PLAN: This is a 66 year old woman with a history of CHF, CAD, [place], stent, type 2 DM, HTN, hyperlipidemia, HIV, SDH who presented to the ED with SOB and productive cough. 1. Acute diastolic heart failure - Improving - Continue Lasix IV - Monitor I&O, weight - Echo pending 2. Acute kidney injury vs progression of stage 3 CKD - Last creatinine available is 1.3 from 06/2015 - Continue to monitor BUN, creatinine with diuresis 3. Hypertensive emergency - Resolved 4. HTN - Continue Norvasc, Toprol XL, Lasix 5. Type 2 DM - Continue Levemir, Novolog sliding scale 6. CAD, history of [place], stent - Continue aspirin, Plavix, Toprol XL, Lipitor 7. Hyperlipidemia - Continue Lipitor 8. HIV - Continue Isentress, Daklinza, Intelence, Prezista 9. Obesity
--- NOTE | 2017-07-08 15:36 | PN ---
Physical Exam: SUBJECTIVE: Patient seen and examined No acute events overnight. Patient states her shortness of breath has improved. Feels as if she has mucus stuck in her throat. OBJECTIVE: Vital Signs Period Temp Pulse Resp BP Sys/Stallings Pulse Ox Last 24 Hr 97.4 F-98 F 86-98 16-20 131-180/79-96 99-100 GENERAL: Awake, alert, and fully oriented, in no acute distress HEAD: Normal with no signs of trauma. EYES: R eye cataract, blind. L pupil round and reactive to light, Extraocular movements intact, sclera anicteric, conjunctiva clear. No lid lag. EARS, NOSE, THROAT: Moist mucous membranes. NECK: supple, no masses LUNGS: bibasilar rales that have improved HEART: Regular rate and rhythm, normal S1 and S2 ABDOMEN: Soft, nontender, not distended, normoactive bowel sounds, no guarding, no rebound, no masses. MUSCULOSKELETAL: Normal range of motion at all joints. No bony deformities or tenderness. No CVA tenderness. UPPER EXTREMITIES: 2+ pulses, warm, well-perfused. No cyanosis. No clubbing. No peripheral edema. LOWER EXTREMITIES: 1+ pulses, warm, well-perfused. No calf tenderness. Trace peripheral edema. NEUROLOGICAL: Cranial nerves II-XII grossly intact. Normal speech. PSYCHIATRIC: Cooperative. Good eye contact. Appropriate mood and affect. SKIN: Warm, dry Laboratory Results - last 24 hr 07/07/17 07/07/17 07/08/17 16:42 21:40 05:15 WBC 4.3 D RBC 3.10 L Hgb 9.6 L D Hct 28.9 L MCV 93.1 MCH 31.0 MCHC 33.3 RDW 13.9 Plt Count 179 MPV 9.6 Sodium Potassium Chloride Carbon Dioxide Anion Gap BUN Creatinine Creat Clearance w eGFR POC Glucometer 158.28189 [phone] Random Glucose Calcium Phosphorus Magnesium Total Bilirubin AST ALT Alkaline Phosphatase Total Protein Albumin 07/08/17 07/08/17 07/08/17 05:15 05:21 11:32 WBC RBC Hgb Hct MCV MCH MCHC RDW Plt Count MPV Sodium 144 Potassium 4.1 Chloride 109 H Carbon Dioxide 27 Anion Gap 8 BUN 45 H Creatinine 1.7 H Creat Clearance w eGFR 29.89 POC Glucometer 93.80662 211.32848 Random Glucose 97 Calcium 7.9 L Phosphorus 4.0 Magnesium 1.9 Total Bilirubin 0.3 D AST 16 ALT 16 Alkaline Phosphatase 57 Total Protein 5.8 L Albumin 2.3 L Active Medications Generic Name Dose Route Start Last Admin Trade Name Antonio PRN Reason Stop Dose Admin Amlodipine Besylate 5 mg 07/08/17 12:15 07/08/17 13:50 Norvasc - PO 5 mg DAILY [facility] Administration Aspirin 81 mg 07/07/17 10:00 07/08/17 09:24 Ecotrin - PO 81 mg DAILY [facility] Administration Atorvastatin Calcium 80 mg 07/07/17 22:00 07/07/17 22:00 Lipitor - PO 80 mg HS WILNER Administration Clopidogrel Bisulfate 75 mg 07/07/17 10:00 07/08/17 09:24 Plavix - PO 75 mg DAILY [facility] Administration Darunavir 600 mg 07/07/17 12:15 07/08/17 09:25 Prezista - PO 600 mg BID WILNER Administration Etravirine 200 mg 07/07/17 12:15 07/08/17 09:25 Intelence - PO 200 mg BID W[facility] Administration Furosemide 40 mg 07/08/17 10:00 07/08/17 09:24 Lasix Injection - IVPUSH 40 mg DAILY [facility] Administration Heparin Sodium (Porcine) 5,000 unit 07/07/17 10:00 07/08/17 13:50 Heparin - SQ 5,000 unit TID [facility]NER Administration Insulin Aspart 1 vial 07/07/17 11:00 07/08/17 11:33 Novolog Vial Sliding Scale - SQ 4 unit ACHS [facility] Administration Protocol Insulin Detemir 34 units 07/07/17 22:00 07/07/17 22:00 Levemir Vial SQ 34 units HS [facility] Administration Metoprolol Succinate 50 mg 07/08/17 10:00 07/08/17 09:24 Toprol Xl - PO 50 mg DAILY [facility] Administration Non-Formulary Medication 60 mg 07/07/17 12:15 Daclatasvir Dihydrochloride [Daklinza] PO DAILY [facility] Raltegravir 400 mg 07/07/17 12:15 07/08/17 09:25 Isentress - PO 400 mg BID [facility] Administration ASSESSMENT/PLAN: This is a 66 yo F with PMH of CHF, [place] (s/p stent placement 03/2016), IDDM, HTN, HLD, HIV and small SDH 04/2016, who presents due to SOB and cough productive of clear sputum x1 w. Acute CHF exacerbation -CXR improved today -Continue IV lasix 40 today and consider switching to PO lasix tomorrow -Echo results reviewed -strict I and O, daily weights -Cardio consulted -TFT's normal -tele monitoring HTN Emergency with history of SDH -Systolic >200 in ems, 180 in ED with end organ damage (CHF, BEAU), no neuro deficits -Resolved with NGT and IV lasix -Continue IV Lasix 40 mg -Norvasc 5 mg restarted today -Continue home Lopressor 100 bid -Once beau resolves, can restart lisinopril Mild BEAU acute on chronic , likely prerenal -Trend creatinine -monitor urine output -avoid nephrotoxic medications IDDM -Levemir 34 HS -ISS, BGM ACHS -A1c 8.1 HLD -Increased lipitor to 80 mg HIV -Continue HAART therapy FEN fluid restrict monitor bmp Na restricted diabetic diet Hep sq Continue tele monitoring Visit type - Emergency Visit Emergency Visit: Yes ED Registration Date: 07/07/17 Care time: The patient presented to the Emergency Department on the above date and was hospitalized for further evaluation of their emergent condition. - New Patient This patient is new to me today: Yes Date on this admission: 07/08/17 - Critical Care Critical Care patient: No
[2017-07-08 16:08] LABS: CARBOXYHEMOGLOBIN 0.6 gm% (0.5-2.0)
[2017-07-08] MEDS: ATORVASTATIN CA 80 MG TABLET (FP) PO SCH (21:41)
[2017-07-08] MEDS: INSULIN DETEMIR 100 UNITS/ML MDV SQ SCH (21:42)
[2017-07-09] MEDS: INSULIN SLIDING SCALE (NOVOLOG) 1 VIAL SQ SCH ×2 (06:23→13:13)
[2017-07-09] MEDS: HEPARIN NA (PORCINE) 5,000 UNITS/ML 1ML VIAL SQ SCH ×2 (06:26→13:14)
[2017-07-09 08:57] LABS: BASO % 0.9 % (0-2.0); EOS % 3.8 % (0-4.5); HEMATOCRIT 31.9 % (32.4-45.2); HEMOGLOBIN 10.6 GM/dL (10.7-15.3); LYMPH % 29.9 % (8-40); MCH 30.7 pg (25.7-33.7); MCHC 33.1 g/dl (32.0-36.0); MEAN CELL VOLUME 92.8 fl (80-96); MEAN PLT VOLUME 9.6 fl (7.5-11.1); MONO % 9.3 % (3.8-10.2); NEUT % 56.1 % (42.8-82.8); PLATELET COUNT 188 K/MM3 (134-434); RBC 3.44 M/mm3 (3.60-5.2); RDW 13.9 % (11.6-15.6); WHITE BLOOD COUNT 5.1 K/mm3 (4.0-10.0)
[2017-07-09 09:20] LABS: ANION GAP 11 (8-16); BLOOD UREA NITROGEN 49 mg/dL (7-18); CALCIUM 8.5 mg/dL (8.5-10.1); CHLORIDE 107 mmol/L (98-107); CO2 24 mmol/L (21-32); CREATININE 1.7 mg/dL (0.55-1.02); GLUCOSE,RANDOM 160 mg/dL (74-106); PHOSPHOROUS 4.8 mg/dL (2.5-4.9); POTASSIUM 4.4 mmol/L (3.5-5.1); SODIUM 142 mmol/L (136-145)
[2017-07-09] MEDS ORDERED: FUROSEMIDE 40 MG TABLET (FP) PO SCH (10:00)
[2017-07-09] MEDS ORDERED: guaiFENesin 600 MG TABLET.ER (FP) PO SCH (10:00)
[2017-07-09] MEDS: ASPIRIN COATED 81 MG TABLET.EC PO SCH (10:16)
[2017-07-09] MEDS: amLODIPine BESYLATE 5 MG TABLET (FP) PO SCH (10:16)
[2017-07-09] MEDS: CLOPIDOGREL BISULFATE 75 MG TABLET (FP) PO SCH (10:16)
[2017-07-09] MEDS: DARUNAVIR ETHANOLATE 600 MG TAB PO SCH (10:17)
[2017-07-09] MEDS: RALTEGRAVIR POTASSIUM 400 MG TAB PO SCH (10:17)
[2017-07-09] MEDS: ETRAVIRINE 100 MG TABLET PO SCH (10:18)
--- NOTE | 2017-07-09 14:35 | DS ---
Physical Exam: Selected Entries 07/09/17 07/09/17 09:00 14:58 Temperature 98.6 F Pulse Rate 87 Respiratory 18 Rate Blood Pressure 142/76 O2 Sat by Pulse 96 Oximetry (%) Oxygen Delivery Room Air Method Laboratory Tests 07/07/17 07/07/17 07/07/17 04:43 04:43 06:02 WBC Hgb Hct Plt Count ABG pH 7.26 L ABG pCO2 at Pt Temp 49.9 H ABG pO2 at Pt Temp 45.4 L* ABG HCO3 21.8 L Sodium Potassium Chloride Carbon Dioxide Anion Gap BUN 30 H Creatinine 1.6 H Hemoglobin A1c % Lactic Acid 0.4 Troponin I < 0.02 B-Natriuretic Peptide 5868.89 H Triglycerides Cholesterol Total LDL Cholesterol HDL Cholesterol TSH Free T4 07/07/17 07/07/17 07/07/17 06:30 09:00 09:00 WBC Hgb Hct Plt Count ABG pH 7.30 L ABG pCO2 at Pt Temp 43.6 ABG pO2 at Pt Temp 187.0 H* ABG HCO3 20.7 L Sodium Potassium Chloride Carbon Dioxide Anion Gap BUN Creatinine Hemoglobin A1c % 8.1 H Lactic Acid Troponin I < 0.02 B-Natriuretic Peptide Triglycerides 466 H Cholesterol 423 H Total LDL Cholesterol 208 H HDL Cholesterol 75 H TSH 2.78 Free T4 07/07/17 07/09/17 07/09/17 09:00 08:20 08:20 WBC 5.1 Hgb 10.6 L D Hct 31.9 L Plt Count 188 ABG pH ABG pCO2 at Pt Temp ABG pO2 at Pt Temp ABG HCO3 Sodium 142 Potassium 4.4 Chloride 107 Carbon Dioxide 24 Anion Gap 11 BUN 49 H Creatinine 1.7 H Hemoglobin A1c % Lactic Acid Troponin I B-Natriuretic Peptide Triglycerides Cholesterol Total LDL Cholesterol HDL Cholesterol TSH Free T4 0.89 Microbiology 07/07/17 05:03 Blood - Peripheral Venous Blood Culture - Preliminary NO GROWTH OBTAINED AFTER 48 HOURS, INCUBATION TO CONTINUE FOR 3 DAYS. 07/07/17 05:03 Blood - Peripheral Venous Blood Culture - Preliminary NO GROWTH OBTAINED AFTER 48 HOURS, INCUBATION TO CONTINUE FOR 3 DAYS. Imagin/18 cxr-bilateral pleural and pulmonary changes 07/08 cxr- improvement. better aeration Echocardiogram- In comparison to previous echo on 07/21/2015, severity of mitral regurgitation has increased. Moderate concentric LVH, trace MN, trace TR, LA mildly dilated, RA mildly dilated HOSPITAL COURSE: Date of Admission:07/07/17 Date of Discharge: 07/09/17 66 yo F with PMH of CHF, [place] (s/p stent placement 03/2016), IDDM, HTN, HLD, HIV and small SDH 04/2016, who presents due to SOB and cough productive of clear sputum x1 week. Patient received IV lasix 40 mg x 2 days and bipap. Patient clinically improved after 1 day. Echocardiogram performed (results above). Patient was also found to be hypertensive while here. Lisinopril was held 2/2 to NÉSTOR. Blood pressure was controlled with norvasc. Lisinopril was held on discharge until repeat cr is performed outpatient. In addition, Lipid studies were performed and patient was increased to lipitor mg 80 hs. Patient will f/u with pcp, cardiology (for CHF), and pulmonology (for concerns regarding COPD) Minutes to complete discharge: 45 Discharge Summary Reason For Visit: CHF; BPAP; ACUTE PULMONARY EDEMA Current Active Problems NÉSTOR (acute kidney injury) (Acute) CAD (coronary artery disease) (Chronic) CKD (chronic kidney disease) (Chronic) Diabetes (Chronic) HIV (human immunodeficiency virus infection) (Chronic) HTN (hypertension) (Chronic) Condition: Stable - Instructions Diet, Activity, Other Instructions: You were in the hospital for exacerbation of your congestive heart failure. Your kidney functioning has slightly worsened from your baseline. Please be advised your medications have been changed. See below Please follow up with your primary care provider within 1 week. You will need to get your blood pressure checked and get labs drawn to check your kidney function. Please follow up with cardiology and pulmonary within 1 week. Referrals have been provided. Referral also been provided for industrial safety and health specialist regarding your concerns for COPD that you stated you were diagnosed with in the past. Continue your home medications except the following: Lisinopril 40 mg (stopped due to your kidney functioning) Metoprolol tartrate 100 mg twice per day Lipitor 40 mg New Medications: Lasix 40 mg oral daily Lipitor 80 mg by mouth at night Metoprolol Succinate 50 mg by mouth daily *If you have chest pain, shortness of breath, or any new/worsening symptoms please come back to the hospital immediately. Referrals: Andres Beavers MD [Staff Physician] - Pete Mendiola MD [Staff Physician] - Disposition: HOME - Home Medications Comprehensive Discharge Medication List: Ambulatory Orders Aspirin 81 mg PO DAILY 07/07/17 Cholecalciferol (Vitamin D3) [D3-2000] 2,000 unit PO DAILY 07/07/17 Clopidogrel Bisulfate [Clopidogrel] 75 mg PO DAILY 07/07/17 Daclatasvir Dihydrochloride [Daklinza] 60 mg PO DAILY 07/07/17 Darunavir Ethanolate [Prezista -] 600 mg PO BID 07/07/17 Etravirine [Intelence -] 200 mg PO BID 07/07/17 Insulin Aspart (Niacinamide) [Fiasp 100 Unit/ml Vial] 16 unit SQ TID 07/07/17 Insulin Detemir [Levemir Flextouch] 34 unit SQ HS 07/07/17 Iron Polysac/Iron Heme/FA/B12 [Bifera Rx Tablet] 1 each PO ACBK 07/07/17 Lactic Acid [Lactinol Hx] 0 gm TP ASDIR 07/07/17 Raltegravir [Isentress] 400 mg PO BID 07/07/17 Amlodipine Besylate [Norvasc -] 5 mg PO DAILY 07/08/17 Gabapentin 400 mg PO TID 07/08/17 Atorvastatin Ca [Lipitor] 80 mg PO HS #30 tablet 07/09/17 Furosemide [Lasix -] 40 mg PO DAILY #30 tablet 07/09/17 Metoprolol Succinate [Toprol XL -] 50 mg PO DAILY #30 tab.sr.24h 07/09/17 This patient is new to me today: No Emergency Visit: Yes ED Registration Date: 07/07/17 Care time: The patient presented to the Emergency Department on the above date and was hospitalized for further evaluation of their emergent condition. Critical Care patient: No - Discharge Referral Referred to [facility] Med P.C.: No
[2017-07-09 14:59] VITALS: BP 142/76; PULSE 87; TEMP 98.6
--- NOTE | 2017-07-09 17:30 | PN ---
Teaching Attending Note Name of Resident: Dillon Cohen ATTENDING PHYSICIAN STATEMENT I saw and evaluated the patient. I reviewed the resident's note and discussed the case with the resident. I agree with the resident's findings and plan as documented. SUBJECTIVE: No complaints. OBJECTIVE: Vital Signs Period Temp Pulse Resp BP Sys/Stallings Pulse Ox Last 24 Hr 97.9 F-98.6 F 81-90 18-189 133-184/68-93 96-100 HEART: S1S2, RRR LUNGS: Clear ABDOMEN: Obese, soft, non-tender, non-distended, normal BS EXTREMITIES: No edema Laboratory Results - last 24 hr 07/08/17 07/08/17 07/09/17 16:38 21:40 06:19 WBC RBC Hgb Hct MCV MCH MCHC RDW Plt Count MPV Neutrophils % Lymphocytes % Monocytes % Eosinophils % Basophils % Sodium Potassium Chloride Carbon Dioxide Anion Gap BUN Creatinine POC Glucometer 192.21807 271.32809 119 Random Glucose Calcium Phosphorus Magnesium 07/09/17 07/09/17 07/09/17 08:20 08:20 08:20 WBC 5.1 RBC 3.44 L Hgb 10.6 L D Hct 31.9 L MCV 92.8 MCH 30.7 MCHC 33.1 RDW 13.9 Plt Count 188 MPV 9.6 Neutrophils % 56.1 D Lymphocytes % 29.9 D Monocytes % 9.3 Eosinophils % 3.8 Basophils % 0.9 Sodium 142 Cancelled Potassium 4.4 Cancelled Chloride 107 Cancelled Carbon Dioxide 24 Cancelled Anion Gap 11 BUN 49 H Creatinine 1.7 H POC Glucometer Random Glucose 160 H Calcium 8.5 Phosphorus 4.8 Magnesium 2.0 07/09/17 13:10 WBC RBC Hgb Hct MCV MCH MCHC RDW Plt Count MPV Neutrophils % Lymphocytes % Monocytes % Eosinophils % Basophils % Sodium Potassium Chloride Carbon Dioxide Anion Gap BUN Creatinine POC Glucometer 190 Random Glucose Calcium Phosphorus Magnesium Current Medications Generic Name Dose Route Start Last Admin Trade Name Freq PRN Reason Stop Dose Admin Amlodipine Besylate 5 mg 07/08/17 12:15 07/09/17 10:16 Norvasc - PO 5 mg DAILY [facility] Administration Aspirin 81 mg 07/07/17 10:00 07/09/17 10:16 Ecotrin - PO 81 mg DAILY [facility] Administration Atorvastatin Calcium 80 mg 07/07/17 22:00 07/08/17 21:41 Lipitor - PO 80 mg HS [facility] Administration Clopidogrel Bisulfate 75 mg 07/07/17 10:00 07/09/17 10:16 Plavix - PO 75 mg DAILY [facility] Administration Darunavir 600 mg 07/07/17 12:15 07/09/17 10:17 Prezista - PO 600 mg BID [facility] Administration Etravirine 200 mg 07/07/17 12:15 07/09/17 10:18 Intelence - PO 200 mg BID [facility] Administration Furosemide 40 mg 07/09/17 10:00 07/09/17 10:16 Lasix - PO 40 mg DAILY [facility] Administration Guaifenesin 600 mg 07/09/17 10:00 07/09/17 10:16 Mucinex - PO 600 mg BID [facility] Administration Heparin Sodium (Porcine) 5,000 unit 07/07/17 10:00 07/09/17 13:14 Heparin - SQ Not Given TID [facility] Insulin Aspart 1 vial 07/07/17 11:00 07/09/17 13:13 Novolog Vial Sliding Scale - SQ 2 unit ACHS [facility] Administration Protocol Insulin Detemir 34 units 07/07/17 22:00 07/08/17 21:42 Levemir Vial SQ 34 units HS [facility] Administration Metoprolol Succinate 50 mg 07/08/17 10:00 07/09/17 10:16 Toprol Xl - PO 50 mg DAILY [facility] Administration Non-Formulary Medication 60 mg 07/07/17 12:15 Daclatasvir Dihydrochloride [Daklinza] PO DAILY [facility] Raltegravir 400 mg 07/07/17 12:15 07/09/17 10:17 Isentress - PO 400 mg BID WILNER Administration ASSESSMENT AND PLAN: This is a 66 year old woman with a history of CHF, CAD, [place], stent, type 2 DM, HTN, hyperlipidemia, HIV, SDH who presented to the ED with SOB and productive cough. 1. Acute diastolic heart failure - Improving - Lasix changed to PO - Echo shows moderate concentric LVH, normal LV function, normal RV function , mild to moderate MR 2. Stage 3 CKD - Creatinine stable 3. Hypertensive emergency - Resolved 4. HTN - Continue Norvasc, Toprol XL, Lasix 5. Type 2 DM - Continue Levemir, Novolog sliding scale 6. CAD, history of [place], stent - Continue aspirin, Plavix, Toprol XL, Lipitor 7. Hyperlipidemia - Continue Lipitor 8. HIV - Continue Isentress, Daklinza, Intelence, Prezista 9. Obesity with BMI 30.9 10. Ok to discharge home
== END 2017-07-09 17:31 | disposition home or self-care (01) | DRG 291 ==
LOC: JER 04:38 → JERBED 08:10 → J2W 16:00 → J4W 07-09 04:50
PROVIDERS: ADMIT Internal Medicine; ATTEND Internal Medicine
PROC: 5A09357 Assistance with Respiratory Ventilation, Less than 24 Consecutive Hours, Continuous Positive Airway Pressure (ICD-10-PCS; principal; 2017-07-07)
DX: I13.0 Hypertensive heart and chronic kidney disease with heart failure and stage 1 through stage 4 chronic kidney disease, or unspecified chronic kidney disease (principal); I50.33 Acute on chronic diastolic (congestive) heart failure; I16.1 Hypertensive emergency; N17.9 Acute kidney failure, unspecified; N18.3 Chronic kidney disease, stage 3 (moderate); E11.22 Type 2 diabetes mellitus with diabetic chronic kidney disease; I25.10 Atherosclerotic heart disease of native coronary artery without angina pectoris; I25.2 Old myocardial infarction; Z91.14 Patient's other noncompliance with medication regimen; Z79.4 Long term (current) use of insulin; Z21 Asymptomatic human immunodeficiency virus [HIV] infection status; E66.09 Other obesity due to excess calories; Z68.30 Body mass index [BMI] 30.0-30.9, adult; F41.9 Anxiety disorder, unspecified; Z95.5 Presence of coronary angioplasty implant and graft; Z87.891 Personal history of nicotine dependence; E78.1 Pure hyperglyceridemia; G47.30 Sleep apnea, unspecified
CPT/HCPCS: 36415; 36600; 71045-TC-FY; 80048; 80053; 80061; 81003; 81015; 82375; 82550; 82553; 82803; 82962; 83036; 83050; 83605; 83721; 83735; 83880; 84100; 84439; 84443; 84484; 85025; 85027; 85610; 85730; 86850; 86900; 86901; 87040; 87086; 93005; 93010; 93306-TC; 94660; 99285-25; J1644

== ENCOUNTER 2017-08-29 13:27 | Inpatient (IN) | payer OTHER ==
--- NOTE | 2017-08-29 14:23 | PDOC ---
History of Present Illness - History of Present Illness Initial Comments: 08/29/17 16:45 Patient is a 66 year old female with a significant past medical history of CHF, [place] (s/p stent placement 03/2016), IDDM, HTN, HLD, HIV and small SDH 04/2016, who presents to the ED with complaints of difficulty breathing that began 5 days ago. Patient reports visiting her friend out of state when she ran out of her medication 5 days go. She reports experiencing gradual shortness of breath over the 5 days until she could no longer bear it. Patient reports experiencing chronic cough as well as increased bilateral leg edema since taking her medication. Denies chest pain, Nausea, vomiting. Denies contact with sick individual, out of state travelling. Denies any other symptoms. Allergies: None Social history: No smoking. No alcohol. No illicit drugs. Surgical history: none PMD: Not on staff. 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) COPD: No Diabetes: Yes HTN: Yes Hypercholesterolemia: Yes Liver Disease: Yes - Surgical History Cardiac Surgery: Yes (2 Stents) - Immunization History Immunization Up to Date: Yes - Suicide/Smoking/Psychosocial Hx Smoking Status: No Smoking History: Never smoked Have you smoked in the past 12 months: No Number of Cigarettes Smoked Daily: 0 If you are a former smoker, when did you quit?: 20 yrs ago Information on smoking cessation initiated: No Hx Alcohol Use: No Drug/Substance Use Hx: No Substance Use Type: None Hx Substance Use Treatment: No <Govind Peterson - Last Filed: 08/29/17 16:50> - Past Medical History Allergies/Adverse Reactions: Allergies Allergy/AdvReac Type Severity Reaction Status Date / Time No Known Allergies Allergy Verified 08/29/17 13:49 Home Medications: Ambulatory Orders Aspirin 81 mg PO DAILY 07/07/17 Cholecalciferol (Vitamin D3) [D3-2000] 2,000 unit PO DAILY 07/07/17 Clopidogrel Bisulfate [Clopidogrel] 75 mg PO DAILY 07/07/17 Daclatasvir Dihydrochloride [Daklinza] 60 mg PO DAILY 07/07/17 Darunavir Ethanolate [Prezista -] 600 mg PO BID 07/07/17 Etravirine [Intelence -] 200 mg PO BID 07/07/17 Insulin Aspart (Niacinamide) [Fiasp 100 Unit/ml Vial] 16 unit SQ TID 07/07/17 Insulin Detemir [Levemir Flextouch] 34 unit SQ HS 07/07/17 Iron Polysac/Iron Heme/FA/B12 [Bifera Rx Tablet] 1 each PO ACBK 07/07/17 Lactic Acid [Lactinol Hx] 0 gm TP ASDIR 07/07/17 Raltegravir [Isentress] 400 mg PO BID 07/07/17 Amlodipine Besylate [Norvasc -] 5 mg PO DAILY 07/08/17 Gabapentin 400 mg PO TID 07/08/17 Atorvastatin Ca [Lipitor] 80 mg PO HS #30 tablet 07/09/17 Furosemide [Lasix -] 40 mg PO DAILY #30 tablet 07/09/17 Metoprolol Succinate [Toprol XL -] 50 mg PO DAILY #30 tab.sr.24h 07/09/17 Review of Systems - Review of Systems Able to Perform ROS?: Yes Comments:: 08/29/17 16:45 GENERAL/CONSTITUTIONAL: No fever or chills. No weakness. HEAD, EYES, EARS, NOSE AND THROAT: No change in vision. No ear pain or discharge. No sore throat. CARDIOVASCULAR: +Shortness of breath. No chest pain RESPIRATORY: No cough, wheezing, or hemoptysis. GASTROINTESTINAL: No nausea, vomiting, diarrhea or constipation. GENITOURINARY: No dysuria, frequency, or change in urination. MUSCULOSKELETAL: No joint or muscle swelling or pain. No neck or back pain. SKIN: No rash NEUROLOGIC: No headache, vertigo, loss of consciousness, or change in strength/ sensation. ENDOCRINE: +Bilateral leg swelling. No increased thirst. No abnormal weight change. HEMATOLOGIC/LYMPHATIC: No anemia, easy bleeding, or history of blood clots. ALLERGIC/IMMUNOLOGIC: No hives or skin allergy. <Tariq Gonzalez - Last Filed: 08/29/17 16:45> *Physical Exam - Vital Signs Last Vital Signs Temp Pulse Resp BP Pulse Ox 98.3 F 102 H 18 157/71 100 08/29/17 13:49 08/29/17 15:33 08/29/17 13:49 08/29/17 13:49 08/29/17 15:33 - Physical Exam Comments: 08/29/17 16:45 GENERAL: Awake, alert, and fully oriented, in no acute distress HEAD: No signs of trauma EYES: PERRLA, EOMI, sclera anicteric, conjunctiva clear ENT: Auricles normal inspection, hearing grossly normal, nares patent, oropharynx clear without exudates. Moist mucosa NECK: Normal ROM, supple, no lymphadenopathy, JVD, or masses LUNGS: +Diminished breath sounds at bases. Breath sounds equal, clear to auscultation bilaterally. No wheezes, and no crackles HEART: Regular rate and rhythm, normal S1 and S2, no murmurs, rubs or gallops ABDOMEN: Soft, nontender, normoactive bowel sounds. No guarding, no rebound. No masses EXTREMITIES: +1 pitting edema. Normal range of motion, no edema. No clubbing or cyanosis. No cords, erythema, or tenderness NEUROLOGICAL: Cranial nerves II through XII grossly intact. Normal speech, normal gait SKIN: Warm, Dry, normal turgor, no rashes or lesions noted. <Tariq Gonzalez - Last Filed: 08/29/17 16:45> - Vital Signs Last Vital Signs Temp Pulse Resp BP Pulse Ox 98.3 F 70 18 157/71 100 08/29/17 13:49 08/29/17 13:49 08/29/17 13:49 08/29/17 13:49 08/29/17 13:49 <Govind Peterson - Last Filed: 08/29/17 16:50> Heart Score/ECG Review #1 ECG reviewed & interpreted by me at: 16:45 08/29/17 16:48 NSR 78, no std/carmela, TWI I, avL< V6, Q wave III, QTC 542 msec (prolonged) <Govind Peterson - Last Filed: 08/29/17 16:50> ED Treatment Course - LABORATORY CBC & Chemistry Diagram: 08/29/17 15:31 08/29/17 15:31 - ADDITIONAL ORDERS Additional order review: Laboratory Results 08/29/17 08/29/17 08/29/17 15:34 15:31 15:31 PT with INR 10.50 INR 0.93 PTT (Actin FS) 29.8 Sodium 139 Potassium 4.3 Chloride 109 H Carbon Dioxide 24 Anion Gap 6 L BUN 28 H Creatinine 1.7 H Creat Clearance w eGFR 29.89 Random Glucose 324 H* Calcium 7.4 L Phosphorus 3.1 Magnesium 1.8 Total Bilirubin 0.3 AST 25 ALT 25 Alkaline Phosphatase 81 Creatine Kinase 369 H Creatine Kinase Index 1.2 CK-MB (CK-2) 4.675 H Troponin I 0.02 B-Natriuretic Peptide 3049.91 H Total Protein 6.3 L Albumin 2.5 L Urine Color Yellow Urine Appearance Slcloudy Urine pH 6.0 Ur Specific [place] 1.020 Urine Protein 3+ H Urine Glucose (UA) 3+ H Urine Ketones Negative Urine Blood 1+ H Urine Nitrite Negative Urine Bilirubin Negative Urine Urobilinogen Negative Ur Leukocyte Esterase 1+ H 08/29/17 15:31 RBC 3.15 L MCV 93.5 MCHC 33.7 RDW 15.2 MPV 9.0 Neutrophils % 58.2 Lymphocytes % 29.3 Monocytes % 7.5 Eosinophils % 3.9 Basophils % 1.1 - Medications Given in the ED: ED Medications Discontinued Medications Generic Name Dose Route Start Last Admin Trade Name Freq PRN Reason Stop Dose Admin Furosemide 40 mg 08/29/17 16:35 08/29/17 16:41 Lasix Injection - IVPB 08/29/17 16:36 40 mg ONCE ONE Administration <Tariq Gonzalez - Last Filed: 08/29/17 16:45> - LABORATORY CBC & Chemistry Diagram: 08/29/17 15:31 08/29/17 15:31 - RADIOLOGY Radiology Studies Ordered: Category Date Time Status CHEST X-RAY PORTABLE* [RAD] Stat Radiology 08/29/17 14:22 Ordered <Govind Peterson - Last Filed: 08/29/17 16:50> Medical Decision Making - Medical Decision Making 08/29/17 14:52 A portion of this note was documented by scribe services under my direction. I have reviewed the details of the note, within reason, and agree with the documentation with the following case summary and management plan written by me. Patient treated in the ED. Nursing notes are reviewed and incorporated into the medical decision-making. Vital signs reviewed. Peripheral IV access obtained by the nurse, laboratory studies are drawn and sent, reviewed and interpreted by myself. Vital Signs Temp Pulse Resp BP Pulse Ox 98.3 F 70 18 157/71 100 08/29/17 13:49 08/29/17 13:49 08/29/17 13:49 08/29/17 13:49 08/29/17 13:49 66 year old female with past medical history of CHF, diabetes, hypertension, hyperlipidemia, coronary disease with [place], small subdural hematoma presents with shortness of breath. Five days ago, pt ran out of her 40 mg lasix daily. Since then, has been having SOB, dyspnea on exertion, orthopnea, increasing lower extremity edema. No chest pain, fevers, chills. Pt likely with CHF exacerbation. Labs, chest xray, BNP, IV lasix and reassess. 08/29/17 16:48 CBC, BMP 08/29/17 15:31 08/29/17 15:31 CMP Sodium 139 mmol/L (136-145) 08/29/17 15:31 Potassium 4.3 mmol/L (3.5-5.1) 08/29/17 15:31 Chloride 109 mmol/L (98-107) H 08/29/17 15:31 Carbon Dioxide 24 mmol/L (21-32) 08/29/17 15:31 Anion Gap 6 (8-16) L 08/29/17 15:31 BUN 28 mg/dL (7-18) H 08/29/17 15:31 Creatinine 1.7 mg/dL (0.55-1.02) H 08/29/17 15:31 Creat Clearance w eGFR 29.89 (>60) 08/29/17 15:31 Random Glucose 324 mg/dL (74-106) H* 08/29/17 15:31 Calcium 7.4 mg/dL (8.5-10.1) L 08/29/17 15:31 Phosphorus 3.1 mg/dL (2.5-4.9) 08/29/17 15:31 Magnesium 1.8 mg/dL (1.8-2.4) 08/29/17 15:31 Total Bilirubin 0.3 mg/dL (0.2-1.0) 08/29/17 15:31 AST 25 U/L (15-37) 08/29/17 15:31 ALT 25 U/L (12-78) 08/29/17 15:31 Alkaline Phosphatase 81 U/L (45-117) 08/29/17 15:31 Creatine Kinase 369 IU/L (26-192) H 08/29/17 15:31 Creatine Kinase Index 1.2 % (0.0-5.0) 08/29/17 15:31 CK-MB (CK-2) 4.675 ng/mL (0.5-3.6) H 08/29/17 15:31 Troponin I 0.02 ng/ml (0.00-0.05) 08/29/17 15:31 B-Natriuretic Peptide 3049.91 pg/ml (5-125) H 08/29/17 15:31 Total Protein 6.3 g/dl (6.4-8.2) L 08/29/17 15:31 Albumin 2.5 g/dl (3.4-5.0) L 08/29/17 15:31 Chest xray reviewed. CHF. 40 mg IV lasix ordered. Case discussed with Dr. Angeles. Case admitted to telemetry admission. Case discussed in detail with admitting physician including history, physical exam and ancillary studies. Admitting physician has assumed care for the patient, will follow all pending diagnostics and will complete the evaluation and treatment. <Govind Peterson - Last Filed: 08/29/17 16:50> *DC/Admit/Observation/Transfer - Attestations Scribe Attestion: 08/29/17 16:46 Documentation prepared by Tariq Gonzalez, acting as medical transcription for Govind Peterson MD, /DO. <Tariq Gonzalez - Last Filed: 08/29/17 16:45> - Discharge Dispostion Decision to Admit order: Yes <Govind Peterson - Last Filed: 08/29/17 16:50> Diagnosis at time of Disposition: CHF (congestive heart failure) Qualifiers: Heart failure type: unspecified Heart failure chronicity: unspecified Qualified Code(s): I50.9 - Heart failure, unspecified - Discharge Dispostion Condition at time of disposition: Stable
[2017-08-29 15:37] LABS: BASO % 1.1 % (0-2.0); EOS % 3.9 % (0-4.5); HEMATOCRIT 29.4 % (32.4-45.2); HEMOGLOBIN 9.9 GM/dL (10.7-15.3); LYMPH % 29.3 % (8-40); MCH 31.5 pg (25.7-33.7); MCHC 33.7 g/dl (32.0-36.0); MEAN CELL VOLUME 93.5 fl (80-96); MONO % 7.5 % (3.8-10.2); NEUT % 58.2 % (42.8-82.8); PLATELET COUNT 193 K/MM3 (134-434); RBC 3.15 M/mm3 (3.60-5.2); RDW 15.2 % (11.6-15.6); WHITE BLOOD COUNT 4.9 K/mm3 (4.0-10.0)
[2017-08-29 15:51] LABS: URINE APPEARANCE SLCLOUDY; URINE BILIRUBIN NEGATIVE (<2.0 mg/dL); URINE BLOOD 1+ (NEGATIVE); URINE COLOR YELLOW; URINE GLUCOSE (UA) 3+ (NEGATIVE); URINE KETONE NEGATIVE (NEGATIVE); URINE NITRITE NEGATIVE (NEGATIVE); URINE UROBILINOGEN NEGATIVE mg/dL (0.2-1.0)
[2017-08-29 16:05] LABS: ALBUMIN 2.5 g/dl (3.4-5.0); ANION GAP 6 (8-16); BILIRUBIN,TOTAL 0.3 mg/dL (0.2-1.0); BLOOD UREA NITROGEN 28 mg/dL (7-18); CALCIUM 7.4 mg/dL (8.5-10.1); CHLORIDE 109 mmol/L (98-107); CO2 24 mmol/L (21-32); CREATININE 1.7 mg/dL (0.55-1.02); PHOSPHOROUS 3.1 mg/dL (2.5-4.9); SGPT/ALT 25 U/L (12-78); SODIUM 139 mmol/L (136-145); TOT PROT 6.3 g/dl (6.4-8.2)
[2017-08-29 16:14] LABS: ALK PHOS 81 U/L (45-117); MAGNESIUM 1.8 mg/dL (1.8-2.4); N-TERMINAL BNP 3049.91 pg/ml (5-125); POTASSIUM 4.3 mmol/L (3.5-5.1); SGOT/AST 25 U/L (15-37)
[2017-08-29 16:16] LABS: GLUCOSE,RANDOM 324 mg/dL (74-106)
[2017-08-29 16:23] LABS: INR 0.93 (0.82-1.09); PROTHROMBIN TIME (PATIENT) 10.5 SEC (9.7-13.0)
[2017-08-29 16:25] LABS: ACTIVATED PTT 29.8 SECONDS (26.9-34.4)
[2017-08-29] MEDS ORDERED: FUROSEMIDE 100 MG/10 ML INJECTABLE VIAL IVPB ONE (16:35)
[2017-08-29] MEDS ORDERED: FUROSEMIDE 40 MG/4 ML INJECTABLE VIAL ONE (16:37)
[2017-08-29 16:40] LABS: URINE LEUK ESTERASE 1+ (NEGATIVE); URINE PROTEIN 3+ (NEGATIVE)
[2017-08-29 16:43] LABS: EPI CELLS RARE /HPF (FEW); URINE BACTERIA MODERATE /hpf (NONE SEEN)
--- NOTE | 2017-08-29 17:07 | CON.CARD ---
Consult Consult Specialty:: cardiology Reason for Consultation:: shortness of breath; Hx CHF - History of Present Illness Chief Complaint: Pt A&Ox3; intermittent SOB; denies chest pain History of Present Illness: Patient is a 66 year old black female with a significant past medical history of diastolic CHF, [place] (s/p stent placement 03/2016; additional stent about 3 months ago at [place], [place]), IDDM, HTN, HLD, obesity, HIV and small SDH 2016, ?gout, who presents to the ED with complaints of difficulty breathing that began 5 days ago. Patient reports visiting her friend in [place] when she ran out of her medication 5 days go. She reports experiencing gradual shortness of breath over the 5 days until she could no longer bear it. Patient reports experiencing chronic cough as well as increased bilateral leg edema since taking her medication. Denies chest pain, Nausea, vomiting. Denies contact with sick individual, out of state travelling. Denies any other symptoms. Sedentary lifestyle. Allergies: None Social history: No smoking. No alcohol. No illicit drugs. Surgical history: coronary stents 2015 and 2017 - History Source History Provided By: Patient, Family Member, Medical Record Limitations to Obtaining History: Poor Historian - Past Medical History Cardio/Vascular: Yes: CAD, CHF, HTN, Hyperlipdemia Renal/: Yes: Renal Inusuff Reproductive: Yes: Postmenopausal ...: No Infectious Disease: Yes: HIV Psych: Yes: Anxiety Endocrine: Yes: Diabetes Mellitus - Past Surgical History Past Surgical History: Yes: Breast Biopsy, Stent (coronary) - Alcohol/Substance Use Hx Alcohol Use: No - Smoking History Smoking history: Never smoked Have you smoked in the past 12 months: No Aproximately how many cigarettes per day: 0 If you are a former smoker, when did you quit?: 20 yrs ago - Social History History of Recent Travel: Yes ([place]; returned 08/27/17) Home Medications - Allergies Allergies/Adverse Reactions: Allergies Allergy/AdvReac Type Severity Reaction Status Date / Time No Known Allergies Allergy Verified 08/29/17 13:49 - Home Medications Home Medications: Ambulatory Orders Aspirin 81 mg PO DAILY 07/07/17 Cholecalciferol (Vitamin D3) [D3-2000] 2,000 unit PO DAILY 07/07/17 Clopidogrel Bisulfate [Clopidogrel] 75 mg PO DAILY 07/07/17 Daclatasvir Dihydrochloride [Daklinza] 60 mg PO DAILY 07/07/17 Darunavir Ethanolate [Prezista -] 600 mg PO BID 07/07/17 Etravirine [Intelence -] 200 mg PO BID 07/07/17 Insulin Aspart (Niacinamide) [Fiasp 100 Unit/ml Vial] 16 unit SQ TID 07/07/17 Insulin Detemir [Levemir Flextouch] 34 unit SQ HS 07/07/17 Iron Polysac/Iron Heme/FA/B12 [Bifera Rx Tablet] 1 each PO ACBK 07/07/17 Lactic Acid [Lactinol Hx] 0 gm TP ASDIR 07/07/17 Raltegravir [Isentress] 400 mg PO BID 07/07/17 Amlodipine Besylate [Norvasc -] 5 mg PO DAILY 07/08/17 Gabapentin 400 mg PO TID 07/08/17 Atorvastatin Ca [Lipitor] 80 mg PO HS #30 tablet 07/09/17 Furosemide [Lasix -] 40 mg PO DAILY #30 tablet 07/09/17 Metoprolol Succinate [Toprol XL -] 50 mg PO DAILY #30 tab.sr.24h 07/09/17 Metoprolol Tartrate 1 tab PO BID 08/30/17 Ritonavir [Norvir] 100 mg PO BID 08/30/17 Family Disease History - Family Disease History Family Disease History: Diabetes: Mother, Heart Disease: Mother Review of Systems - Review of Systems Constitutional: reports: Weakness Eyes: reports: No Symptoms HENT: reports: No Symptoms Neck: reports: No Symptoms Cardiovascular: reports: Shortness of Breath Respiratory: reports: SOB Gastrointestinal: reports: No Symptoms Genitourinary: reports: No Symptoms Breasts: reports: No Symptoms Reported Musculoskeletal: reports: Muscle Pain, Muscle Weakness Integumentary: reports: No Symptoms Neurological: reports: Weakness Endocrine: reports: No Symptoms Hematology/Lymphatic: reports: No Symptoms Psychiatric: reports: Anxiety - Risk Factors Known Risk Factors: Yes: Age, Diabetes Mellitus, Family History, Hypercholesterolemia, Hypertension, Physical Inactivity, Prior [place] /Emb Stroke, Race Vital Signs: Vital Signs Temperature 98.3 F 08/29/17 13:49 Pulse Rate 102 H 08/29/17 15:33 Respiratory Rate 18 08/29/17 13:49 Blood Pressure 157/71 08/29/17 13:49 O2 Sat by Pulse Oximetry (%) 100 08/29/17 15:33 Constitutional: Yes: Well Nourished, Anxious Eyes: Yes: WNL HENT: Yes: WNL Neck: Yes: WNL Respiratory: Yes: Diminished Gastrointestinal: Yes: Soft, Abdomen, Obese Renal/: No: Anuria Cardiovascular: Yes: Tachycardia JVD: Yes PMI: Displaced Heart Sounds: Yes: S1, S2, S4 Murmur: Yes: Systolic Murmur, Grade 2 Musculoskeletal: Yes: Muscle Pain, Muscle Weakness Extremities: Yes: Cool Edema: Yes Edema: LLE: 1+, RLE: 1+ Peripheral Pulses WNL: No Peripheral Pulses: 1+ Left Doralis Pedis, 1+ Right Dorsalis Pedis Integumentary: Yes: WNL Neurological: Yes: Alert, Oriented, Weakness Psychiatric: Yes: Other (anxiety) - Other Data Labs, Other Data: CBC, BMP 08/29/17 15:31 08/29/17 15:31 INR, PTT INR 0.93 (0.82-1.09) 08/29/17 15:31 Troponin, BNP 08/29/17 15:31 Troponin I 0.02 B-Natriuretic Peptide 3049.91 H Troponin, BNP 08/29/17 15:31 Troponin I 0.02 B-Natriuretic Peptide 3049.91 H Ejection Fraction %: LVEF > or = 40 % Imaging - Results Chest X-ray: Image Reviewed (moderate CHF) EKG: Image Reviewed (NSR) Problem List - Problems (1) [place] cardiac risk >20% in next 10 years Code(s): Z91.89 - OTH PERSONAL RISK FACTORS, NOT ELSEWHERE CLASSIFIED (2) Hyperlipidemia Code(s): E78.5 - HYPERLIPIDEMIA, UNSPECIFIED (3) Hypertriglyceridemia Code(s): E78.1 - PURE HYPERGLYCERIDEMIA (4) CAD (coronary artery disease) Assessment/Plan: s/p [place]-->stents (the latest was about [address] [facility]) F?u records. Code(s): I25.10 - ATHSCL HEART DISEASE OF [place] CORONARY ARTERY W/O ANG PCTRS (5) CKD (chronic kidney disease) Code(s): N18.9 - CHRONIC KIDNEY DISEASE, UNSPECIFIED Qualifiers: Chronic kidney disease stage: unspecified stage Qualified Code(s): N18.9 - Chronic kidney disease, unspecified (6) Diabetes Code(s): E11.9 - TYPE 2 DIABETES MELLITUS WITHOUT COMPLICATIONS (7) HIV (human immunodeficiency virus infection) Code(s): Z21 - ASYMPTOMATIC HUMAN IMMUNODEFICIENCY VIRUS INFECTION STATUS (8) HTN (hypertension) Code(s): I10 - ESSENTIAL (PRIMARY) HYPERTENSION Qualifiers: Hypertension type: unspecified Qualified Code(s): I10 - Essential (primary ) hypertension (9) CHF exacerbation Assessment/Plan: On metoprolol Furosemide IV; F/u BUN/Cr, electrolhytes, Is and Os, daily weight. ECHO for LVEF Code(s): I50.9 - HEART FAILURE, UNSPECIFIED Qualifiers: Heart failure type: unspecified Qualified Code(s): I50.9 - Heart failure, unspecified (10) Gout Code(s): M10.9 - GOUT, UNSPECIFIED
--- NOTE | 2017-08-29 17:39 | HP ---
Admitting History and Physical - Primary Care Physician PCP: Kely - Admission Chief Complaint: shortness of breath History of Present Illness: 66F with PMH listed below including CHF and CKD presents to the ED after running out of her medications 5 days ago while in [place]. Patient had to be told by her daughter when she got back that she ran out She noticed her symptoms after the first day of not taking her medications. She now has worsening LEVIN, PND, 2 pillow orthopnea, and worsening lower extremity edema. Patient denies nausea vomiting fevers chills chest pain diarrhea or urinary symptoms. She states the right great toe has been getting "black" and it is now painful. She does not recall if there was any trauma to the area. 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) Cardiovascular: Yes: CAD, CHF, HTN, Hyperlipdemia, [place] (2016 s/p stent x2 and in 12/2016 s/p repleacment of those 2 stents in the [place]) Renal/: Yes: Renal Inusuff (chronic) Infectious Disease: Yes: HIV Psych: Yes: Anxiety Endocrine: Yes: Diabetes Mellitus (uncontrolled) - Past Surgical History Past Surgical History: Yes: Breast Biopsy, Stent (coronary) - Smoking History Smoking history: Never smoked Have you smoked in the past 12 months: No Aproximately how many cigarettes per day: 0 If you are a former smoker, when did you quit?: 20 yrs ago - Alcohol/Substance Use Hx Alcohol Use: No Home Medications - Allergies Allergies/Adverse Reactions: Allergies Allergy/AdvReac Type Severity Reaction Status Date / Time No Known Allergies Allergy Verified 08/29/17 13:49 - Home Medications Home Medications: Ambulatory Orders Aspirin 81 mg PO DAILY 07/07/17 Cholecalciferol (Vitamin D3) [D3-2000] 2,000 unit PO DAILY 07/07/17 Clopidogrel Bisulfate [Clopidogrel] 75 mg PO DAILY 07/07/17 Daclatasvir Dihydrochloride [Daklinza] 60 mg PO DAILY 07/07/17 Darunavir Ethanolate [Prezista -] 600 mg PO BID 07/07/17 Etravirine [Intelence -] 200 mg PO BID 07/07/17 Insulin Aspart (Niacinamide) [Fiasp 100 Unit/ml Vial] 16 unit SQ TID 07/07/17 Insulin Detemir [Levemir Flextouch] 34 unit SQ HS 07/07/17 Iron Polysac/Iron Heme/FA/B12 [Bifera Rx Tablet] 1 each PO ACBK 07/07/17 Lactic Acid [Lactinol Hx] 0 gm TP ASDIR 07/07/17 Raltegravir [Isentress] 400 mg PO BID 07/07/17 Amlodipine Besylate [Norvasc -] 5 mg PO DAILY 07/08/17 Gabapentin 400 mg PO TID 07/08/17 Atorvastatin Ca [Lipitor] 80 mg PO HS #30 tablet 07/09/17 Furosemide [Lasix -] 40 mg PO DAILY #30 tablet 07/09/17 Metoprolol Succinate [Toprol XL -] 50 mg PO DAILY #30 tab.sr.24h 07/09/17 Family Disease History - Family Disease History Family Disease History: Diabetes: Mother, Heart Disease: Mother Review of Systems - Review of Systems Constitutional: reports: No Symptoms Eyes: reports: No Symptoms HENT: reports: Other (hard of hearing) Neck: reports: No Symptoms Cardiovascular: reports: Shortness of Breath Respiratory: reports: Orthopnea, PND, SOB, SOB on Exertion Gastrointestinal: reports: No Symptoms Genitourinary: reports: No Symptoms Musculoskeletal: reports: Joint Pain (right great toe), Joint Swelling (right great toe) Integumentary: reports: Change in Color (and peeling of right great toe) Neurological: reports: Weakness (RUE) Hematology/Lymphatic: reports: No Symptoms Psychiatric: reports: No Symptoms Physical Examination Vital Signs: Vital Signs Temperature 98.3 F 08/29/17 13:49 Pulse Rate 102 H 08/29/17 15:33 Respiratory Rate 18 08/29/17 13:49 Blood Pressure 157/71 08/29/17 13:49 O2 Sat by Pulse Oximetry (%) 100 08/29/17 15:33 Constitutional: Yes: No Distress, Calm, Obese HENT: Yes: Atraumatic Neck: Yes: Supple Cardiovascular: Yes: Regular Rate and Rhythm Respiratory: Yes: CTA Bilaterally Gastrointestinal: Yes: Soft, Abdomen, Obese. No: Tenderness Renal/: No: CVA Tenderness - Left, CVA Tenderness - Right Musculoskeletal: Yes: Other (right great toe slightly discolored and darker than the other toes. also tender to palpation. skin on top of toe is peeling. webbed space between first and second toe shows a possible tear in the skin and possible nidus for infection) Extremities: Yes: Other (2+ Pitting edema) Edema: Yes Edema: LLE: 2+, RLE: 2+ Neurological: Yes: Other (slight right facial droop) ...Motor Strength: RUE (slightly weaker than left) Psychiatric: Yes: Alert, Oriented Labs: CBC, BMP 08/29/17 15:31 08/29/17 15:31 Imaging - Results Chest X-ray: Report Reviewed, Image Reviewed Assessment/Plan 66F with multiple medical problems presents to the ED with shortness of breath due to running out of her medications while in [place] Problem List: Acute exacerbation of heart failure with preserved ejection fraction CKD Uncontrolled DM Uncontrolled HLD possible right toe infection HIV history of [place] s/p stent Plan: Admit to telemtry cardiology consult lasix 40mg iv daily restart HAART restart metoprolol and norvasc restart levemir restart insulin regimen ultrasound duplex to r/o DVT Strict I/O Daily weights asprin plavix Neurontin DVT PPx PT consult Xray right toe Refer to H&P for full details Case discussed with Dr. Angeles Visit type - Emergency Visit Emergency Visit: Yes ED Registration Date: 08/29/17 Care time: The patient presented to the Emergency Department on the above date and was hospitalized for further evaluation of their emergent condition. - New Patient This patient is new to me today: Yes Date on this admission: 08/29/17 - Critical Care Critical Care patient: No
[2017-08-29] MEDS ORDERED: MAGNESIUM 2GM/50ML STERILE WATER IVPB IVPB ONE (17:40)
[2017-08-29] MEDS ORDERED: MAGNESIUM SULF 50% (8.12 MEQ/2 ML-1 GM VIAL) ONE (17:49)
--- NOTE | 2017-08-29 17:59 | PN ---
Teaching Attending Note Name of Resident: Rui Cantrell ATTENDING PHYSICIAN STATEMENT I saw and evaluated the patient. I reviewed the resident's note and discussed the case with the resident. I agree with the resident's findings and plan as documented with exceptions below. SUBJECTIVE: 66 yof with PMHx of Chronic diastolic Heart failure, [place] (s/p stent placement 2015, RCA PCI x 2 in 12/2016), IDDM non compliant, HTN, HLD, HIV on HAART and small SDH 04/2016, prior ischemic CVAs, last in 06/3016, was in [place] when ran out of her lasix 5 days ago. Since then started noticing progressive LEVIN, now with minimal exertion, orthopnea, PND, progressive leg swelling, tried to get her lasix refilled but per her, was not able to, so came to ED today. Also reports progressive abdominal distension, unsure for how long. Denies any fevers, chills, new cough or chest pain. On interview reported right great toe pain but unsure of trauma or unclear about duration of the same. 12 point ROS done, has exertional dyspnea climbing stairs and walking few blocks which is worse currently. OBJECTIVE: Vital Signs Period Temp Pulse Resp BP Sys/Stallings Pulse Ox Last 24 Hr 98.3 F 70-102 18 157/71 100-100 Intake & Output 08/26/17 08/27/17 08/28/17 08/29/17 23:59 23:59 23:59 23:59 Weight 230 lb GENERAL: Awake, alert, and fully oriented, in no acute distress. HEAD: Normal with no signs of trauma. EYES: Pupils equal, round and reactive to light, extraocular movements intact, sclera anicteric, conjunctiva clear. No lid lag. EARS, NOSE, THROAT: Ears normal, nares patent, oropharynx clear without exudates. Moist mucous membranes. NECK: soft, supple, right jugular venous distension LUNGS: decreased breath sounds base, More left, otherwise CTAb, no rales or wheezing appreciated. HEART: S1S2 regular ABDOMEN: Soft, distended, non tender throughout, Positive bowel sounds, no voluntary or involuntary guarding or rigidity MUSCULOSKELETAL: Normal range of motion at all joints. No bony deformities or tenderness. No CVA tenderness. UPPER EXTREMITIES: 2+ pulses, warm, well-perfused. No cyanosis. No clubbing. No peripheral edema. LOWER EXTREMITIES: bilateral lower extremities 2+ pitting edema, R>L, right toe hyperpigmentation with some swelling and tenderness and excoriation in interdigital space, positive DP pulses NEUROLOGICAL: facial symmetry, moves all extremities freely, hard of hearing, tongue midline PSYCHIATRIC: Cooperative. Good eye contact. Appropriate mood and affect. SKIN: Warm, dry, normal turgor, no rashes or lesions noted, normal capillary refill. Home Medication List Medication Instructions Recorded Confirmed Type Aspirin 81 mg PO DAILY 07/07/17 07/07/17 History Cholecalciferol (Vitamin D3) 2,000 unit PO DAILY 07/07/17 07/07/17 History [D3-2000] Clopidogrel Bisulfate [Clopidogrel] 75 mg PO DAILY 07/07/17 07/07/17 History Daclatasvir Dihydrochloride 60 mg PO DAILY 07/07/17 07/07/17 History [Daklinza] Darunavir Ethanolate [Prezista -] 600 mg PO BID 07/07/17 07/07/17 History Etravirine [Intelence -] 200 mg PO BID 07/07/17 07/07/17 History Insulin Aspart (Niacinamide) 16 unit SQ TID 07/07/17 07/07/17 History [Fiasp 100 Unit/ml Vial] Insulin Detemir [Levemir Flextouch] 34 unit SQ HS 07/07/17 07/07/17 History Iron Polysac/Iron Heme/FA/B12 1 each PO ACBK 07/07/17 07/08/17 History [Bifera Rx Tablet] Lactic Acid [Lactinol Hx] 0 gm TP ASDIR 07/07/17 07/07/17 History Raltegravir [Isentress] 400 mg PO BID 07/07/17 07/08/17 History Amlodipine Besylate [Norvasc -] 5 mg PO DAILY 07/08/17 07/08/17 History Gabapentin 400 mg PO TID 07/08/17 07/08/17 History Active Medications Generic Name Dose Route Start Last Admin Trade Name Freq PRN Reason Stop Dose Admin Amlodipine Besylate 5 mg 08/30/17 10:00 Norvasc - PO DAILY [facility] Aspirin 81 mg 08/30/17 10:00 Asa - PO DAILY [facility] Atorvastatin Calcium 80 mg 08/29/17 22:00 Lipitor - PO HS [facility] Clopidogrel Bisulfate 75 mg 08/30/17 10:00 Plavix - PO DAILY [facility] Darunavir 600 mg 08/29/17 22:00 Prezista - PO BID [facility] Furosemide 40 mg 08/30/17 10:00 Lasix Injection - IVPUSH DAILY [facility] Gabapentin 400 mg 08/29/17 22:00 Neurontin - PO TID [facility] Heparin Sodium (Porcine) 5,000 unit 08/29/17 18:00 Heparin - SQ Q8H-IV [facility] Insulin Aspart 16 units 08/29/17 18:00 Novolog Vial SQ TIDAC [facility] Insulin Detemir 34 units 08/29/17 22:00 Levemir Vial SQ HS [facility] Metoprolol Succinate 50 mg 08/30/17 10:00 Toprol Xl - PO DAILY [facility] Non-Formulary Medication 60 mg 08/30/17 10:00 Daclatasvir Dihydrochloride [Daklinza] PO DAILY [facility] Raltegravir 400 mg 08/29/17 22:00 Isentress - PO BID [facility] Laboratory Results - last 24 hr 08/29/17 08/29/17 08/29/17 15:31 15:31 15:31 WBC 4.9 RBC 3.15 L Hgb 9.9 L Hct 29.4 L MCV 93.5 MCH 31.5 MCHC 33.7 RDW 15.2 Plt Count 193 MPV 9.0 Neutrophils % 58.2 Lymphocytes % 29.3 Monocytes % 7.5 Eosinophils % 3.9 Basophils % 1.1 PT with INR 10.50 INR 0.93 PTT (Actin FS) 29.8 Sodium 139 Potassium 4.3 Chloride 109 H Carbon Dioxide 24 Anion Gap 6 L BUN 28 H Creatinine 1.7 H Creat Clearance w eGFR 29.89 Random Glucose 324 H* Calcium 7.4 L Phosphorus 3.1 Magnesium 1.8 Total Bilirubin 0.3 AST 25 ALT 25 Alkaline Phosphatase 81 Creatine Kinase 369 H Creatine Kinase Index 1.2 CK-MB (CK-2) 4.675 H Troponin I 0.02 B-Natriuretic Peptide 3049.91 H Total Protein 6.3 L Albumin 2.5 L Urine Color Urine Appearance Urine pH Ur Specific [place] Urine Protein Urine Glucose (UA) Urine Ketones Urine Blood Urine Nitrite Urine Bilirubin Urine Urobilinogen Ur Leukocyte Esterase 08/29/17 15:34 WBC RBC Hgb Hct MCV MCH MCHC RDW Plt Count MPV Neutrophils % Lymphocytes % Monocytes % Eosinophils % Basophils % PT with INR INR PTT (Actin FS) Sodium Potassium Chloride Carbon Dioxide Anion Gap BUN Creatinine Creat Clearance w eGFR Random Glucose Calcium Phosphorus Magnesium Total Bilirubin AST ALT Alkaline Phosphatase Creatine Kinase Creatine Kinase Index CK-MB (CK-2) Troponin I B-Natriuretic Peptide Total Protein Albumin Urine Color Yellow Urine Appearance Slcloudy Urine pH 6.0 Ur Specific [place] 1.020 Urine Protein 3+ H Urine Glucose (UA) 3+ H Urine Ketones Negative Urine Blood 1+ H Urine Nitrite Negative Urine Bilirubin Negative Urine Urobilinogen Negative Ur Leukocyte Esterase 1+ H CXR - pulmonary vascular congestion with cardiomegaly EKG NSR, T inversion In I, aVL, V6 , upright T otherwise in anterior leads, QTc > 500 ASSESSMENT AND PLAN: 66 yof with acute on chronic diastolic HF exacerbation in the setting of not taking her lasix and right toe pain and swelling -Acute on chronic diastolic heart failure exacerbation -RIght great toe pain with swelling -CAD s/p PCI in 03/2016 and RCA x 2 in 12/2016 -Hyperlipidemia -Obesity -IDDM, poorly controlled -HTN -Mitral regurgitation -HIV on HAART -h/o Fronto-parietal CVA -CKD stage III Plan: LAsix 40 mg IV daily, Cardiology consult. strict I/Os and daily weights. Telemetry, cycle Cardiac enzymes but low suspicion of ACS. Right foot xray and LE doppler. Onset of symptoms prior to travel after holding lasix and current exam consistent with volume overload, absence of hypoxia argue against PE, monitor for now. Suspect component of non compliance. Monitor renal function. Continue ASA/plavix/Toprol XL, statin, levemir and premeal novolog with ISS. Check A1c. Continue HAART. DVTPPx with heparin Dispo pending clinical improvement. Will need PT eval and case management input once clinically improved. Plan discussed with patient and daughters at bedside in detail and all questions answered. Discussed with Dr. Hsieh Total admit time 60 min.
[2017-08-29] MEDS ORDERED: HEPARIN NA (PORCINE) 5,000 UNITS/ML 1ML VIAL SQ SCH (18:00)
[2017-08-29] MEDS ORDERED: INSULIN (NOVOLOG) ASPART 100 UNITS/ML 10ML VIAL SQ SCH (18:00)
--- NOTE | 2017-08-29 18:01 | HP ---
CHIEF COMPLAINT: Shortness of breath x 4 PCP: Dr Julio Cardio: Dr Beavers HISTORY OF PRESENT ILLNESS: Pt is a poor historian. Daughter is not by the bedside to provide hx. Pt is a 66 yo F with PMHx of diastolic CHF(last ECHO-07/07), [place] (s/p stent placement 03/2016, 12/2016), IDDM, HTN, HLD, HIV and small SDH 04/2016, recent admission for PNA (07/09) presenting with a 4 day hx of SOB, worse on exertion, worsening orthopnea and PND,( has been unable to sleep for days), weight gain ( 30lbs in one month) and bilateral pedal edema. Pt said she has been gaining weight despite regular exercise in the gym. About 4 days ago she reported running out of her lasix (40mg daily) and was unable to reach her primary care physician to refill her medications. Yesterday, due to the shortness of breath, became lightheaded and she fell, but was not brought in because her daughter was at work. She is presenting today for worsening SOB. She denies cough or sputum production, no chest pain or palpitations, no fevers, dysuria or hematuria and no change in bowel habits. Patient recently returned from a trip to [place] where she was between August 03 and August 27. She received the flu vaccine, but has never had the pneumonia vaccine. No hx of sick contacts. She says she is compliant on her other medications including HAART. She thinks her last CD4 count was 280. She uses insulin at home and self injects. She walks with a walker within the house, but left in on the plane during the recent travel. ER course was notable for: (1) CXR- diffuse pulmonary vascular congestion with possible L pleural effusion - CHF, BNP-3049.91, negative trops x1, (2) Glu-324, h&h- 9.9/29.4, WBC-4.9, Cr-1.7 (3) iv lasix 40mg stat (4) EKG- Recent Travel: To [place] (08/27/17) PAST MEDICAL HISTORY: diastolic CHF(last ECHO-07/07), [place] (s/p stent placement 03/2016, 12/2016), IDDM, HTN, HLD, HIV small SDH 04/2016, Recent PNA (07/09/17) PAST SURGICAL HISTORY: Cardiac stents(03/2016, 12/2016) Bladder cysts Social History: Smoking:Denies Alcohol: Denies Drugs: Family History: Mother used a defibrillator Father had Parkinsons Allergies No Known Allergies Allergy (Verified 08/29/17 13:49) HOME MEDICATIONS: Home Medications Medication Instructions Recorded Aspirin 81 mg PO DAILY 07/07/17 Cholecalciferol (Vitamin D3) 2,000 unit PO DAILY 07/07/17 [D3-2000] Clopidogrel Bisulfate [Clopidogrel] 75 mg PO DAILY 07/07/17 Daclatasvir Dihydrochloride 60 mg PO DAILY 07/07/17 [Daklinza] Darunavir Ethanolate [Prezista -] 600 mg PO BID 07/07/17 Etravirine [Intelence -] 200 mg PO BID 07/07/17 Insulin Aspart (Niacinamide) 16 unit SQ TID 07/07/17 [Fiasp 100 Unit/ml Vial] Insulin Detemir [Levemir Flextouch] 34 unit SQ HS 07/07/17 Iron Polysac/Iron Heme/FA/B12 1 each PO ACBK 07/07/17 [Bifera Rx Tablet] Lactic Acid [Lactinol Hx] 0 gm TP ASDIR 07/07/17 Raltegravir [Isentress] 400 mg PO BID 07/07/17 Amlodipine Besylate [Norvasc -] 5 mg PO DAILY 07/08/17 Gabapentin 400 mg PO TID 07/08/17 Atorvastatin Ca [Lipitor] 80 mg PO HS #30 tablet 07/09/17 Furosemide [Lasix -] 40 mg PO DAILY #30 tablet 07/09/17 Metoprolol Succinate [Toprol XL -] 50 mg PO DAILY #30 tab.sr.24h 07/09/17 REVIEW OF SYSTEMS CONSTITUTIONAL: Absent: fever, chills, diaphoresis, generalized weakness, malaise, loss of appetite, weight change HEENT: Absent: rhinorrhea, nasal congestion, throat pain, throat swelling, difficulty swallowing, mouth swelling, ear pain, eye pain, visual changes CARDIOVASCULAR: Absent: chest pain, syncope, palpitations, irregular heart rate, lightheadedness , peripheral edema RESPIRATORY: Absent: cough, shortness of breath+, dyspnea with exertion+, orthopnea+, wheezing, stridor, hemoptysis GASTROINTESTINAL: Absent: abdominal pain, abdominal distension, nausea, vomiting, diarrhea, constipation, melena, hematochezia GENITOURINARY: Absent: dysuria, frequency, urgency, hesitancy, hematuria, flank pain, genital pain MUSCULOSKELETAL: Absent: myalgia, arthralgia, joint swelling, back pain, neck pain SKIN: Absent: rash, itching, pallor HEMATOLOGIC/IMMUNOLOGIC: Absent: easy bleeding, easy bruising, lymphadenopathy, frequent infections ENDOCRINE: Absent: unexplained weight gain+, unexplained weight loss, heat intolerance, cold intolerance NEUROLOGIC: Absent: headache, focal weakness or paresthesias, dizziness, unsteady gait, seizure, mental status changes, bladder or bowel incontinence PSYCHIATRIC: Absent: anxiety, depression, suicidal or homicidal ideation, hallucinations. PHYSICAL EXAMINATION Vital Signs - 24 hr 08/29/17 08/29/17 13:49 15:33 Temperature 98.3 F Pulse Rate 70 102 H Respiratory 18 Rate Blood Pressure 157/71 O2 Sat by Pulse 100 100 Oximetry (%) GENERAL: Awake, alert, and fully oriented, in no acute respiratory distress, eating a sandwich. HEAD: Normal with no signs of trauma. 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 Moist mucous membranes. NECK: Normal range of motion, supple, no JVD. LUNGS: Dull lung bases, Breath sounds equal, basal creps bilaterally, no wheeze or rhonchi. No accessory muscle use. HEART: Tachycardic, S1 and S2 without murmur, rub or gallop. ABDOMEN: Soft, nontender, distended/obese, normoactive bowel sounds, no guarding MUSCULOSKELETAL: Normal range of motion at all joints. R big toe mild subungual swelling and hematoma. No CVA tenderness. UPPER EXTREMITIES: 2+ pulses, warm, well-perfused. LOWER EXTREMITIES: 2+ pulses, warm, well-perfused. No calf tenderness. Bilateral pitting peripheral edema, up to knee. NEUROLOGICAL: Normal speech. No facial droop, normal tone and power globally CBC, BMP 08/29/17 15:31 08/29/17 15:31 Laboratory Results - last 24 hr 08/29/17 08/29/17 08/29/17 15:31 15:31 15:31 WBC 4.9 RBC 3.15 L Hgb 9.9 L Hct 29.4 L MCV 93.5 MCH 31.5 MCHC 33.7 RDW 15.2 Plt Count 193 MPV 9.0 Neutrophils % 58.2 Lymphocytes % 29.3 Monocytes % 7.5 Eosinophils % 3.9 Basophils % 1.1 PT with INR 10.50 INR 0.93 PTT (Actin FS) 29.8 Sodium 139 Potassium 4.3 Chloride 109 H Carbon Dioxide 24 Anion Gap 6 L BUN 28 H Creatinine 1.7 H Creat Clearance w eGFR 29.89 Random Glucose 324 H* Calcium 7.4 L Phosphorus 3.1 Magnesium 1.8 Total Bilirubin 0.3 AST 25 ALT 25 Alkaline Phosphatase 81 Creatine Kinase 369 H Creatine Kinase Index 1.2 CK-MB (CK-2) 4.675 H Troponin I 0.02 B-Natriuretic Peptide 3049.91 H Total Protein 6.3 L Albumin 2.5 L Urine Color Urine Appearance Urine pH Ur Specific [place] Urine Protein Urine Glucose (UA) Urine Ketones Urine Blood Urine Nitrite Urine Bilirubin Urine Urobilinogen Ur Leukocyte Esterase Urine WBC (Auto) Urine RBC (Auto) Ur Epithelial Cells Urine Bacteria 08/29/17 15:34 WBC RBC Hgb Hct MCV MCH MCHC RDW Plt Count MPV Neutrophils % Lymphocytes % Monocytes % Eosinophils % Basophils % PT with INR INR PTT (Actin FS) Sodium Potassium Chloride Carbon Dioxide Anion Gap BUN Creatinine Creat Clearance w eGFR Random Glucose Calcium Phosphorus Magnesium Total Bilirubin AST ALT Alkaline Phosphatase Creatine Kinase Creatine Kinase Index CK-MB (CK-2) Troponin I B-Natriuretic Peptide Total Protein Albumin Urine Color Yellow Urine Appearance Slcloudy Urine pH 6.0 Ur Specific [place] 1.020 Urine Protein 3+ H Urine Glucose (UA) 3+ H Urine Ketones Negative Urine Blood 1+ H Urine Nitrite Negative Urine Bilirubin Negative Urine Urobilinogen Negative Ur Leukocyte Esterase 1+ H Urine WBC (Auto) 66 Urine RBC (Auto) 8 Ur Epithelial Cells Rare Urine Bacteria Moderate ECHO 07/07- In comparison to previous echo on 07/21/2015, severity of mitral regurgitation has increased. Moderate concentric LVH, trace DC, trace TR, LA mildly dilated, RA mildly dilated ASSESSMENT/PLAN: Pt is a 66 yo F with PMHx of diastolic CHF(last ECHO-07/07), [place] (s/p stent placement 03/2016, 12/2016), IDDM, HTN, HLD, HIV and small SDH 04/2016, recent admission for PNA (07/09) presenting with a 4 day hx of SOB #Acute CHF exacerbation: Likely due to medication non compliance Pt diagnosed with diastolic CHF - ECHO 07/07 BNP-3049.91 CXR- diffuse pulmonary vascular congestion with possible L pleural effusion Received iv Lasix 40mg in ED Continue iv lasix 40mg daily Daily weights Salt restriction- less than 1200mg per daily Strict ins and outs To consider follow up measures addressing compliance on discharge EKG- no features of ischemia- old T waves Repeat ECHO Negative trop x1, Repeat trops-10pm Continue Toprol XL 50mg daily Dr Hsieh on board #Right foot swelling Bilateral pedal edema R>L Ambulates with difficulty, recent travel by air Duplex US R LE R/O DVT IDDM with known medication non compliance R/O diabetic foot Xray R foot-AP/Lateral #NÉSTOR on CKD: Cr- 1.7 May currently be at her baseline Monitor BMP # Hx of [place] (s/p stent placement 03/2016, 12/2016) Cont daily ASA 81mg Toprol XL 50mg daily #IDDM SQ Insulin Detemir 34U HS SQ Insulin Aspart 16u TID #Diabetic neuropathy Gabapentin 400 tid #HTN Amlodipine 5mg daily Toprol XL 50mg daily #HLD Lipitor 80mg PO HS #HIV Daklinza 60mg PO daily Raltegravir 400 mg PO BID Darunavir 600mg PO bid Etravirine 200mg bid #Chronic anemia Iron Polysac/Iron Heme/FA/B12 PO ACBK #small SDH 04/2016, No obvious lateralizing signs/ residual deficits Cont ASA Cont metoprolol #FEN No IVF at this time, patient is being diuresed Monitor electrolytes and replete as needed Low salt/diabetic diet Dispo: Admit Tele Visit type - Emergency Visit Emergency Visit: Yes ED Registration Date: 08/29/17 Care time: The patient presented to the Emergency Department on the above date and was hospitalized for further evaluation of their emergent condition. - New Patient This patient is new to me today: Yes Date on this admission: 08/29/17 - Critical Care Critical Care patient: No Hospitalist Screening - Colonoscopy Questionnaire Colonoscopy Questionnaire: Colonoscopy Questionnaire - Patient: 50 - 75 years old and never had a screening colonoscopy: Yes History of colon or rectal polyps, or CA: No History of IBD, Crohn's disease or UC: No History of abdominal radiation therapy as a child: No - Relative: 1 with colon or rectal CA, or polyps at age 60 or younger: No Colon or rectal CA diagnosed at age 45 or younger: No Multiple relatives with colon or rectal CA: No (Last colonoscopy less than 5 years) - Outcome: Screening Result: Positive Screen
[2017-08-29] MEDS: INSULIN (NOVOLOG) ASPART 100 UNITS/ML 10ML VIAL SQ SCH (20:28)
[2017-08-29] MEDS ORDERED: INSULIN DETEMIR 100 UNITS/ML MDV SQ ONE (21:28)
[2017-08-29] MEDS: INSULIN DETEMIR 100 UNITS/ML MDV SQ SCH (21:32)
[2017-08-29] MEDS ORDERED: ENOXAPARIN NA (PORCINE) 100 MG/1 ML DISP.SYRIN SQ ONE (21:51)
[2017-08-29] MEDS ORDERED: ENOXAPARIN NA (PORCINE) 100 MG/1 ML DISP.SYRIN SQ SCH (22:00)
[2017-08-29] MEDS ORDERED: INSULIN SLIDING SCALE (NOVOLOG) 1 VIAL SQ SCH (22:00)
[2017-08-29] MEDS: RALTEGRAVIR POTASSIUM 400 MG TAB PO SCH (23:44)
[2017-08-29] MEDS: ETRAVIRINE 100 MG TABLET PO SCH (23:44)
[2017-08-29] MEDS: ATORVASTATIN CA 80 MG TABLET (FP) PO SCH (23:45)
[2017-08-29] MEDS: DARUNAVIR ETHANOLATE 600 MG TAB PO SCH (23:45)
[2017-08-29] MEDS: GABAPENTIN 400 MG CAPSULE (FP) PO SCH (23:45)
[2017-08-30] MEDS: INSULIN SLIDING SCALE (NOVOLOG) 1 VIAL SQ SCH ×3 (06:16→16:35)
[2017-08-30] MEDS: INSULIN (NOVOLOG) ASPART 100 UNITS/ML 10ML VIAL SQ SCH (06:28)
[2017-08-30] MEDS: GABAPENTIN 400 MG CAPSULE (FP) PO SCH ×3 (06:31→22:06)
[2017-08-30 07:25] LABS: HEMATOCRIT 29.6 % (32.4-45.2); HEMOGLOBIN 9.8 GM/dL (10.7-15.3); MEAN PLT VOLUME 9.3 fl (7.5-11.1); PLATELET COUNT 203 K/MM3 (134-434); RBC 3.15 M/mm3 (3.60-5.2); RDW 15.1 % (11.6-15.6); WHITE BLOOD COUNT 5.6 K/mm3 (4.0-10.0)
[2017-08-30 07:52] LABS: CHLORIDE 111 mmol/L (98-107); POTASSIUM 3.9 mmol/L (3.5-5.1); SODIUM 143 mmol/L (136-145)
[2017-08-30 08:05] LABS: ALBUMIN 2.5 g/dl (3.4-5.0); ALK PHOS 86 U/L (45-117); ANION GAP 8 (8-16); BILIRUBIN,TOTAL 0.3 mg/dL (0.2-1.0); BLOOD UREA NITROGEN 26 mg/dL (7-18); CALCIUM 8.1 mg/dL (8.5-10.1); CHOLESTEROL 326 mg/dL (50-200); CO2 24 mmol/L (21-32); CREATININE 1.8 mg/dL (0.55-1.02); GLUCOSE,RANDOM 136 mg/dL (74-106); HDL CHOLESTEROL 77 mg/dL (40-60); LDL CHOLESTEROL (ONLY SJRH) 187 mg/dL (5-100); MAGNESIUM 2.1 mg/dL (1.8-2.4); PHOSPHOROUS 3.7 mg/dL (2.5-4.9); SGOT/AST 22 U/L (15-37); SGPT/ALT 22 U/L (12-78); TOT PROT 6.5 g/dl (6.4-8.2); TRIGLYCERIDES 273 mg/dL (35-160)
[2017-08-30] MEDS ORDERED: HEPARIN NA (PORCINE) 5,000 UNITS/ML 1ML VIAL IVPUSH PRN (09:03)
[2017-08-30] MEDS ORDERED: PT OWN MED DRAWER 7, Y5N ONE ×4 (09:16→21:35)
--- NOTE | 2017-08-30 09:18 | PN ---
Teaching Attending Note Name of Resident: Henny Peraza ATTENDING PHYSICIAN STATEMENT I saw and evaluated the patient. I reviewed the resident's note and discussed the case with the resident. I agree with the resident's findings and plan as documented with exceptions below. SUBJECTIVE: Patient seen and examined. Breathing improved, no new complaints, frustated about limited activity given heparin drip. No chest or abdominal pain, nausea, vomiting or new concerns. OBJECTIVE: Vital Signs Period Temp Pulse Resp BP Sys/Stallings Pulse Ox Last 24 Hr 98.1 F-98.5 F 70-102 18-22 151-165/71-92 95-100 Intake & Output 08/27/17 08/28/17 08/29/17 08/30/17 23:59 23:59 23:59 23:59 Intake Total 250 250 Balance 250 250 Weight 237 lb 209 lb 2 oz General: sitting in bed in no acute distress Chest: few basilar rales, overall CTA otherwise. Abdomen: soft, obese, NT throughout Extremities: bilateral pitting pedal edema, R>L Home Medication List Medication Instructions Recorded Confirmed Type Aspirin 81 mg PO DAILY 07/07/17 07/07/17 History Cholecalciferol (Vitamin D3) 2,000 unit PO DAILY 07/07/17 07/07/17 History [D3-2000] Clopidogrel Bisulfate [Clopidogrel] 75 mg PO DAILY 07/07/17 07/07/17 History Daclatasvir Dihydrochloride 60 mg PO DAILY 07/07/17 07/07/17 History [Daklinza] Darunavir Ethanolate [Prezista -] 600 mg PO BID 07/07/17 07/07/17 History Etravirine [Intelence -] 200 mg PO BID 07/07/17 07/07/17 History Insulin Aspart (Niacinamide) 16 unit SQ TID 07/07/17 07/07/17 History [Fiasp 100 Unit/ml Vial] Insulin Detemir [Levemir Flextouch] 34 unit SQ HS 07/07/17 07/07/17 History Iron Polysac/Iron Heme/FA/B12 1 each PO ACBK 07/07/17 07/08/17 History [Bifera Rx Tablet] Lactic Acid [Lactinol Hx] 0 gm TP ASDIR 07/07/17 07/07/17 History Raltegravir [Isentress] 400 mg PO BID 07/07/17 07/08/17 History Amlodipine Besylate [Norvasc -] 5 mg PO DAILY 07/08/17 07/08/17 History Gabapentin 400 mg PO TID 07/08/17 07/08/17 History Active Medications Generic Name Dose Route Start Last Admin Trade Name Freq PRN Reason Stop Dose Admin Amlodipine Besylate 5 mg 08/30/17 10:00 Norvasc - PO DAILY [facility] Aspirin 81 mg 08/30/17 10:00 Asa - PO DAILY [facility] Atorvastatin Calcium 80 mg 08/29/17 22:00 08/29/17 23:45 Lipitor - PO 80 mg HS [facility] Administration Clopidogrel Bisulfate 75 mg 08/30/17 10:00 Plavix - PO DAILY [facility] Darunavir 600 mg 08/29/17 22:00 08/29/17 23:45 Prezista - PO 600 mg BID [facility] Administration Etravirine 200 mg 08/29/17 22:00 08/29/17 23:44 Intelence - PO 200 mg BID [facility] Administration Furosemide 40 mg 08/30/17 10:00 Lasix Injection - IVPUSH DAILY [facility] Gabapentin 400 mg 08/29/17 22:00 08/30/17 06:31 Neurontin - PO 400 mg TID [facility] Administration Heparin Sodium (Porcine) 1,000 unit 08/30/17 09:03 Heparin - IVPUSH PRN PRN Heparin Heparin Sodium (Porcine) 5,000 unit 08/30/17 09:03 Heparin - IVPUSH PRN PRN Heparin HEPARIN SOD,PORK IN 0.45% NACL 25,000 units in 500 mls @ 20 mls/hr 08/30/17 09 :15 Heparin-1/2ns 25,000 Units/500 IVPB TITR [facility] Protocol 1,000 UNITS/HR Insulin Aspart 1 vial 08/30/17 07:00 08/30/17 06:16 Novolog Vial Sliding Scale - SQ Not Given TIDAC [facility] Protocol Insulin Detemir 34 units 08/29/17 22:00 08/29/17 21:32 Levemir Vial SQ 34 unit HS [facility] Administration Metoprolol Succinate 50 mg 08/30/17 10:00 Toprol Xl - PO DAILY [facility] Non-Formulary Medication 60 mg 08/30/17 10:00 Daclatasvir Dihydrochloride [Daklinza] PO DAILY [facility] Raltegravir 400 mg 08/29/17 22:00 08/29/17 23:44 Isentress - PO 400 mg BID [facility] Administration Laboratory Results - last 24 hr 08/29/17 08/29/17 08/29/17 15:34 20:45 20:46 WBC RBC Hgb Hct MCV MCH MCHC RDW Plt Count MPV PTT (Actin FS) Sodium Potassium Chloride Carbon Dioxide Anion Gap BUN Creatinine Creat Clearance w eGFR POC Glucometer [phone] Random Glucose Hemoglobin A1c % Calcium Phosphorus Magnesium Total Bilirubin AST ALT Alkaline Phosphatase Creatine Kinase 348 H Creatine Kinase Index 1.2 CK-MB (CK-2) 4.434 H Troponin I 0.02 Total Protein Albumin Triglycerides Cholesterol Total LDL Cholesterol HDL Cholesterol Urine WBC (Auto) 66 Urine RBC (Auto) 8 Ur Epithelial Cells Rare Urine Bacteria Moderate 08/30/17 08/30/17 08/30/17 05:41 06:16 06:16 WBC RBC Hgb Hct MCV MCH MCHC RDW Plt Count MPV PTT (Actin FS) Sodium 143 Potassium 3.9 Chloride 111 H Carbon Dioxide 24 Anion Gap 8 BUN 26 H Creatinine 1.8 H Creat Clearance w eGFR 27.98 POC Glucometer 154 Random Glucose 136 H Hemoglobin A1c % Calcium 8.1 L Phosphorus 3.7 Magnesium 2.1 Total Bilirubin 0.3 AST 22 ALT 22 Alkaline Phosphatase 86 Creatine Kinase Cancelled 310 H Creatine Kinase Index 1.1 CK-MB (CK-2) 3.458 Troponin I Cancelled 0.02 Total Protein 6.5 Albumin 2.5 L Triglycerides 273 H Cholesterol 326 H Total LDL Cholesterol 187 H HDL Cholesterol 77 H Urine WBC (Auto) Urine RBC (Auto) Ur Epithelial Cells Urine Bacteria 08/30/17 08/30/17 08/30/17 06:45 06:45 12:46 WBC 5.6 RBC 3.15 L Hgb 9.8 L Hct 29.6 L MCV 94.0 MCH 31.0 MCHC 33.0 RDW 15.1 Plt Count 203 MPV 9.3 PTT (Actin FS) Sodium Potassium Chloride Carbon Dioxide Anion Gap BUN Creatinine Creat Clearance w eGFR POC Glucometer Random Glucose Hemoglobin A1c % 10.1 H Calcium Phosphorus Magnesium Total Bilirubin AST ALT Alkaline Phosphatase Creatine Kinase Creatine Kinase Index CK-MB (CK-2) Troponin I 0.02 Total Protein Albumin Triglycerides Cholesterol Total LDL Cholesterol HDL Cholesterol Urine WBC (Auto) Urine RBC (Auto) Ur Epithelial Cells Urine Bacteria 08/30/17 08/30/17 16:30 16:30 WBC RBC Hgb Hct MCV MCH MCHC RDW Plt Count MPV PTT (Actin FS) 42.0 H D Sodium Potassium Chloride Carbon Dioxide Anion Gap BUN Creatinine Creat Clearance w eGFR POC Glucometer 250 Random Glucose Hemoglobin A1c % Calcium Phosphorus Magnesium Total Bilirubin AST ALT Alkaline Phosphatase Creatine Kinase Creatine Kinase Index CK-MB (CK-2) Troponin I Total Protein Albumin Triglycerides Cholesterol Total LDL Cholesterol HDL Cholesterol Urine WBC (Auto) Urine RBC (Auto) Ur Epithelial Cells Urine Bacteria LE duplex results noted. Follow up Foot xray ASSESSMENT AND PLAN: 66 yof with acute on chronic diastolic HF exacerbation in the setting of not taking her lasix and right toe pain and swelling -Dyspnea, acute on chronic diastolic heart failure exacerbation, ?PE given RLE DVT -RLE near occlusive Popliteal vein DVT -CAD s/p PCI in 03/2016 and RCA x 2 in 12/2016 -Hyperlipidemia -Obesity -IDDM, poorly controlled -HTN -Mitral regurgitation -HIV on HAART -h/o Fronto-parietal CVA -CKD stage III Plan: Start heparin drip. Pulmonary input noted, V/Q scan on Saturday as lungs improve with diuresis. Hematology input. Continue LAsix 40 mg IV daily, Cardiology consult. strict I/Os and daily weights. Cr rising, monitor renal function. ACS ruled out, 2D echo results reviewed. Foot xray noted, some swelling, no acute concerns. Lipid panel noted, Suspect component of non compliance. Monitor renal function. Continue ASA/plavix/Toprol XL, statin, levemir and ISS. Resume premeal novolog based on blood sugars. A1c 10.1. Continue HAART. DVTPPx full dose heparin Dispo pending clinical improvement. Will need PT eval and case management input once clinically improved. Plan discussed with patient and all questions answered. Discussed with Dr. Hsieh, Dr. Godinez.
--- NOTE | 2017-08-30 09:40 | EKG ---
Test Reason : Blood Pressure : / mmHG Vent. Rate : 091 BPM Atrial Rate : 091 BPM P-R Int : 186 ms QRS Dur : 082 ms QT Int : 390 ms P-R-T Axes : 049 -07 126 degrees QTc Int : 479 ms NORMAL SINUS RHYTHM POSSIBLE LEFT ATRIAL ENLARGEMENT PROLONGED QT ABNORMAL ECG WHEN COMPARED WITH ECG OF 29-AUG-2017 16:44, QT HAS SHORTENED Confirmed by EDGARDO MORSE, TYLER ([id number]) on 08/30/2017 9:40:32 AM Referred By: , Confirmed By:TYLER REYNOSO MD
--- NOTE | 2017-08-30 09:43 | EKG ---
Test Reason : Blood Pressure : / mmHG Vent. Rate : 078 BPM Atrial Rate : 078 BPM P-R Int : 184 ms QRS Dur : 086 ms QT Int : 476 ms P-R-T Axes : 049 -10 126 degrees QTc Int : 542 ms NORMAL SINUS RHYTHM POSSIBLE LEFT ATRIAL ENLARGEMENT POOR R WAVE PROGRESSION T WAVE ABNORMALITY, CONSIDER LATERAL ISCHEMIA ABNORMAL ECG Confirmed by TYLER REYNOSO MD ([id number]) on 08/30/2017 9:43:46 AM Referred By: Confirmed By:TYLER REYNOSO MD
[2017-08-30] MEDS ORDERED: [UNRECOGNIZED DRUG - OTHER] PO SCH (10:00)
[2017-08-30] MEDS: RALTEGRAVIR POTASSIUM 400 MG TAB PO SCH ×2 (10:09→22:06)
[2017-08-30] MEDS: CLOPIDOGREL BISULFATE 75 MG TABLET (FP) PO SCH (10:09)
[2017-08-30] MEDS: ASPIRIN 81 MG CHEWABLE TABLETS PO SCH (10:09)
[2017-08-30] MEDS: FUROSEMIDE 40 MG/4 ML INJECTABLE VIAL IVPUSH SCH (10:09)
[2017-08-30] MEDS: amLODIPine BESYLATE 5 MG TABLET (FP) PO SCH (10:09)
[2017-08-30] MEDS: DARUNAVIR ETHANOLATE 600 MG TAB PO SCH ×2 (10:10→22:06)
[2017-08-30] MEDS: ETRAVIRINE 100 MG TABLET PO SCH ×2 (10:10→22:06)
[2017-08-30] MEDS: HEPARIN SOD,PORK IN 0.45% NACL 25,000 UNITS/500 ML INFUS.BAG IVPB SCH ×2 (10:32→18:06)
--- NOTE | 2017-08-30 12:48 | PN ---
Progress Note (short form) - Note Progress Note: PULMONARY CONSULTATION DICTATED 08/30/17 IMP ACUTE ON CHRONIC DIASTOLIC CHF RLE DVT ? PE CKD PULMONARY HTN H/O SDH H/O HIV H/O CVA LIKELY OSAS ASHD S/P NE S/P STENT PLAN AC O2 LASIX DAILY WTS F/U CHEST X-RAYS V/Q SCAN WHEN CHEST X-RAY IMPROVES MONITOR LYTES,RENAL FUNCTION SLEEP SCREEN DR HODGES Problem List - Problems (1) DVT (deep venous thrombosis) Code(s): I82.409 - ACUTE EMBOLISM AND THOMBOS UNSP DEEP VN UNSP LOWER EXTREMITY (2) CHF (congestive heart failure) Code(s): I50.9 - HEART FAILURE, UNSPECIFIED Qualifiers: Heart failure type: unspecified Heart failure chronicity: unspecified Qualified Code(s): I50.9 - Heart failure, unspecified (3) Acute pulmonary edema Code(s): J81.0 - ACUTE PULMONARY EDEMA (4) Cerebrovascular accident (CVA) Code(s): I63.9 - CEREBRAL INFARCTION, UNSPECIFIED Qualifiers: CVA mechanism: unspecified Qualified Code(s): I63.9 - Cerebral infarction, unspecified (5) Hyperlipidemia Code(s): E78.5 - HYPERLIPIDEMIA, UNSPECIFIED (6) Hypertriglyceridemia Code(s): E78.1 - PURE HYPERGLYCERIDEMIA (7) Intracranial hemorrhage Code(s): I62.9 - NONTRAUMATIC INTRACRANIAL HEMORRHAGE, UNSPECIFIED (8) Stented coronary artery Code(s): Z95.5 - PRESENCE OF CORONARY ANGIOPLASTY IMPLANT AND GRAFT (9) CAD (coronary artery disease) Code(s): I25.10 - ATHSCL HEART DISEASE OF [place] CORONARY ARTERY W/O ANG PCTRS (10) CKD (chronic kidney disease) Code(s): N18.9 - CHRONIC KIDNEY DISEASE, UNSPECIFIED Qualifiers: Chronic kidney disease stage: unspecified stage Qualified Code(s): N18.9 - Chronic kidney disease, unspecified (11) Diabetes Code(s): E11.9 - TYPE 2 DIABETES MELLITUS WITHOUT COMPLICATIONS (12) HIV (human immunodeficiency virus infection) Code(s): Z21 - ASYMPTOMATIC HUMAN IMMUNODEFICIENCY VIRUS INFECTION STATUS (13) H/O traumatic subdural hematoma Code(s): Z87.828 - PERSONAL HISTORY OF OTH (HEALED) PHYSICAL INJURY AND TRAUMA (14) Pulmonary hypertension Code(s): I27.20 - PULMONARY HYPERTENSION, UNSPECIFIED
--- NOTE | 2017-08-30 13:53 | CONS ---
DATE OF CONSULTATION: 08/30/2017 REFERRING PHYSICIAN: Pamela Angeles MD The patient is a 66-year-old white female, past medical history of congestive heart failure, last echo June 2017; ASHD status post stent in March 2016 as well as December 2016, diabetes mellitus, chronic kidney disease, hypertension, hyperlipidemia; HIV, currently on HAART therapy; history of small subdural hematoma in April 2016, recently hospitalized at [facility] secondary to CHF as well as pneumonia with hypercapnic respiratory failure, placed on BiPAP, responded well to therapy, discharged home. Recently traveled to [place], returned home on August 27, presents to [facility] with increasing shortness of breath, dyspnea on exertion, orthopnea, and PND. Patient states that for the past month or so she started noticing increasing shortness of breath, decreased exercise tolerance, orthopnea, PND, and weight gain, approximately 30 pounds. Apparently 4 days prior to admission started running out of her Lasix. On day prior to admission she started to develop increasing shortness of breath, felt lightheaded and fell, brought to the emergency room by her daughter. In the ER she underwent chest x-ray, revealed diffuse bilateral pulmonary vascular congestion and left pleural effusion. BNP was 3049. She was administered Lasix. Of note, she was noted to have swelling to the left and right lower extremities, underwent a duplex which revealed the near occlusive thrombus in the midportion of right popliteal vein. Patient denies any history of DVT or PE in the past. She underwent an echo which revealed evidence of pulmonary hypertension with pressure of 30-40. RV function was within normal limits. Previous echo on July 07 did not reveal evidence of significant pulmonary hypertension, just revealed mild tricuspid regurgitation. Patient states that she is a heavy snorer, has excessive daytime sleepiness. Denies any episode. She is a nonsmoker. She denies any history of occupational exposure to chemicals or fumes. PAST MEDICAL HISTORY: Again includes CHF, ASHD, status post PR, status post stent, history of subdural hematoma status post fall, history of CVA, insulin-dependent diabetes mellitus, chronic kidney disease, HIV, hypertension, hyperlipidemia. REVIEW OF SYSTEMS: Positive orthopnea, positive dyspnea. No cough, no chest pain, no palpitation, no abdominal pain, no lower extremity pain. CURRENT MEDICATIONS: Include Daklinza, heparin, Neurontin, Prezista, Intelence, Isentress, Toprol, Norvasc, Lipitor, NovoLog, Levemir, Lasix, aspirin, and Plavix. PHYSICAL EXAMINATION: General: The patient is a well-developed, well-nourished female, awake, alert. She is comfortable, in no acute distress. Vital Signs: She is afebrile. Heart rate is 86, blood pressure 151/92, respiratory rate is 22, O2 saturation is 98% on room air. HEENT: Normocephalic, atraumatic. Neck: Supple. Heart: Regular, with S1, S2. Chest: Clear. Abdomen: Soft. Bowel sounds are positive. Extremities: No cyanosis or edema. LABORATORY: WBC is 5.6, hemoglobin 9.8, hematocrit 29.6, platelet count of 203,000. INR is 0.93. BUN 26, creatinine 1.8. Hemoglobin A1c is 10. BNP is 3049. Chest x-ray reveals pulmonary vascular congestion bilaterally, cardiomegaly. Duplex as noted earlier. IMPRESSION: 1. Dyspnea, likely secondary to decompensated congestive heart failure. 2. Right lower extremity deep vein thrombosis, likely provoked secondary to recent hospitalization as well as recent travel. 3. Rule out pulmonary emboli. 4. Pulmonary hypertension. 5. Hyperlipidemia. 6. Arteriosclerotic heart disease status post stents. 7. Likely obstructive sleep apnea. PLAN: Anticoagulation, supplemental O2, obtain VQ scan, give diuretics. Will order sleep screen. Follow up chest x-rays. Daily weights. NANCI HODGES M.D. BLOSSOM/[id number]
--- NOTE | 2017-08-30 15:26 | PN ---
Progress Note (short form) - Note Progress Note: her debit agent is Dr Hermes Evans
--- NOTE | 2017-08-30 15:53 | PN ---
Progress Note, Physician Chief Complaint: Ptr A&Ox3; denies leg pain; less SOB. History of Present Illness: Patient is a 66 year old black female with a significant past medical history of diastolic CHF, CT (s/p stent placement 03/2016; additional stent about 3 months ago at [place], [place]), IDDM, HTN, HLD, obesity, HIV and small SDH 2016, who presents to the ED with complaints of difficulty breathing that began 5 days ago. Patient reports visiting her friend in [place] when she ran out of her medication 5 days go. She reports experiencing gradual shortness of breath over the 5 days until she could no longer bear it. Patient reports experiencing chronic cough as well as increased bilateral leg edema since taking her medication. Denies chest pain, Nausea, vomiting. Denies contact with sick individual, out of state travelling. Denies any other symptoms. Sedentary lifestyle. Allergies: None Social history: No smoking. No alcohol. No illicit drugs. Surgical history: coronary stents 2015 and 2017 - Current Medication List Current Medications: Active Medications Amlodipine Besylate (Norvasc -) 5 mg PO DAILY [facility] Last Admin: 08/30/17 10:09 Dose: 5 mg Aspirin (Asa -) 81 mg PO DAILY [facility] Last Admin: 08/30/17 10:09 Dose: 81 mg Atorvastatin Calcium (Lipitor -) 80 mg PO HS [facility] Last Admin: 08/29/17 23:45 Dose: 80 mg Clopidogrel Bisulfate (Plavix -) 75 mg PO DAILY [facility] Last Admin: 08/30/17 10:09 Dose: 75 mg Darunavir (Prezista -) 600 mg PO BID [facility] Last Admin: 08/30/17 10:10 Dose: 600 mg Etravirine (Intelence -) 200 mg PO BID [facility] Last Admin: 08/30/17 10:10 Dose: 200 mg Furosemide (Lasix Injection -) 40 mg IVPUSH DAILY [facility] Last Admin: 08/30/17 10:09 Dose: 40 mg Gabapentin (Neurontin -) 400 mg PO TID [facility] Last Admin: 08/30/17 15:30 Dose: 400 mg Heparin Sodium (Porcine) (Heparin -) 1,000 unit IVPUSH PRN PRN PRN Reason: Heparin Heparin Sodium (Porcine) (Heparin -) 5,000 unit IVPUSH PRN PRN PRN Reason: Heparin HEPARIN SOD,PORK IN 0.45% NACL (Heparin-1/2ns 25,000 Units/500) 25,000 units in 500 mls @ 20 mls/hr IVPB TITR [facility]; 1,000 UNITS/HR PRN Reason: Protocol Last Admin: 08/30/17 10:32 Dose: 1,000 units/hr, 20 mls/hr Insulin Aspart (Novolog Vial Sliding Scale -) 1 vial SQ TIDAC [facility] PRN Reason: Protocol Last Admin: 08/30/17 13:12 Dose: Not Given Insulin Detemir (Levemir Vial) 34 units SQ HS [facility] Last Admin: 08/29/17 21:32 Dose: 34 unit Metoprolol Succinate (Toprol Xl -) 50 mg PO DAILY [facility] Last Admin: 08/30/17 10:09 Dose: 50 mg Non-Formulary Medication (Daclatasvir Dihydrochloride [Daklinza]) 60 mg PO DAILY [facility] Raltegravir (Isentress -) 400 mg PO BID [facility] Last Admin: 08/30/17 10:09 Dose: 400 mg - Objective Vital Signs: Vital Signs Temperature 98 F 08/30/17 14:00 Pulse Rate 97 H 08/30/17 14:00 Respiratory Rate 20 08/30/17 14:00 Blood Pressure 153/79 08/30/17 14:00 O2 Sat by Pulse Oximetry (%) 98 08/30/17 09:00 Constitutional: Yes: Anxious Eyes: Yes: WNL HENT: Yes: WNL Neck: Yes: WNL Cardiovascular: Yes: Regular Rate and Rhythm Respiratory: Yes: Diminished Gastrointestinal: Yes: Soft ...Rectal Exam: Yes: Deferred Genitourinary: No: Anuria Musculoskeletal: Yes: Muscle Pain, Muscle Weakness Extremities: Yes: Cool Edema: Yes Edema: LLE: Trace, RLE: Trace Peripheral Pulses WNL: No Peripheral Pulses: Left Doralis Pedis: 1+, Right Dorsalis Pedis: 1+ Integumentary: Yes: WNL Neurological: Yes: Alert, Oriented Psychiatric: Yes: Alert, Oriented Labs: CBC, BMP 08/30/17 06:45 08/30/17 06:16 INR, PTT INR 0.93 (0.82-1.09) 08/29/17 15:31 Abnormal Lab Results 08/30/17 08/30/17 08/30/17 06:16 06:45 06:45 RBC 3.15 L Hgb 9.8 L Hct 29.6 L PTT (Actin FS) Chloride 111 H BUN 26 H Creatinine 1.8 H Random Glucose 136 H Hemoglobin A1c % 10.1 H Calcium 8.1 L Creatine Kinase 310 H Albumin 2.5 L Triglycerides 273 H Cholesterol 326 H Total LDL Cholesterol 187 H HDL Cholesterol 77 H 08/30/17 16:30 RBC Hgb Hct PTT (Actin FS) 42.0 H D Chloride BUN Creatinine Random Glucose Hemoglobin A1c % Calcium Creatine Kinase Albumin Triglycerides Cholesterol Total LDL Cholesterol HDL Cholesterol - ....Imaging Ultrasound: Image Reviewed (right popliteal vein occlusion) Problem List - Problems (1) HTN (hypertension) Assessment/Plan: On metorpolol succinate (will increase dose to 100 mg daily); on amlodipine and furosemide. If renal function improves, add ACEI or ARB for HTN and renal protection with DM (and may stop amlodipine then if BP falls too precipitously). Code(s): I10 - ESSENTIAL (PRIMARY) HYPERTENSION Qualifiers: Hypertension type: unspecified Qualified Code(s): I10 - Essential (primary ) hypertension (2) Acute on chronic systolic and diastolic heart failure, NYHA class 2 Assessment/Plan: Increase metoprolol. ?Noncompaction syndrome (LV); f/u cardiac records, Consider cardiac MRI as oupatient, if not recently done. Code(s): I50.43 - ACUTE ON CHRONIC COMBINED SYSTOLIC AND DIASTOLIC HRT FAIL (3) DVT (deep venous thrombosis) Assessment/Plan: DVT of lower extremity. Unable to do CTA to r/o PE due to renal dysfunction. On anticoagulants. Code(s): I82.409 - ACUTE EMBOLISM AND THOMBOS UNSP DEEP VN UNSP LOWER EXTREMITY Qualifiers: DVT location: upper extremity (4) Gout Code(s): M10.9 - GOUT, UNSPECIFIED (5) Obesity Code(s): E66.9 - OBESITY, UNSPECIFIED (6) Sleep apnea Code(s): G47.30 - SLEEP APNEA, UNSPECIFIED (7) CAD (coronary artery disease) Assessment/Plan: s/p CT-->stents (the latest was about 3 moths ago at [facility]) F/u records. 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 Pt is presently already on anticoagulant for DVT. She is also being treated for systollic/diastolic CHF. Code(s): I42.4 - ENDOCARDIAL FIBROELASTOSIS
--- NOTE | 2017-08-30 16:37 | PN ---
Physical Exam: SUBJECTIVE: Patient seen and examined. DVT of R foot identified yesterday. Patient given one dose of 100mg lovenox. C/o of L flank pain. No dysuria, no hematuria. Shortness of breath is improved today. OBJECTIVE: Vital Signs Period Temp Pulse Resp BP Sys/Stallings Pulse Ox Last 24 Hr 98 F-98.5 F 84-97 20-22 150-165/79-92 95-98 Vital Signs Temp 98 F 08/30/17 14:00 Pulse 97 H 08/30/17 14:00 Resp 20 08/30/17 14:00 BP 153/79 08/30/17 14:00 Pulse Ox 98 08/30/17 09:00 Intake & Output 08/29/17 08/30/17 08/30/17 23:59 11:59 23:59 Intake Total 250 250 550 Balance 250 250 550 Weight 107.501 kg 94.858 kg Intake: IV 10 10 SALINE LOCK 10 10 Oral 240 240 550 Other: Voiding Method Toilet # Unmeasured Voids Void 2 2 3 Bowel Movement No No Yes Height 1.83 m Body Mass Index (BMI) 32.1 Weight Measurement Method Standing Scale Standing Scale GENERAL: The patient is awake, in some moderate painful distress. ENT: moist mucous membranes. NECK: supple, no JVD. LUNGS: Breath sounds equal, minimal bilateral basal crepitations HEART: Regular rate and rhythm, S1, S2 without murmur ABDOMEN: Soft, mildly tender L flank, moderately tender epigastrium, obese, normoactive bowel sounds EXTREMITIES: 2+ pulses, warm, well-perfused, improving bilateral edema 1+. NEUROLOGICAL: No facial droop. Normal speech, gait not observed. Laboratory Results - last 24 hr 08/29/17 08/29/17 08/29/17 15:31 15:31 15:34 WBC RBC Hgb Hct MCV MCH MCHC RDW Plt Count MPV PT with INR 10.50 INR 0.93 PTT (Actin FS) 29.8 Sodium Potassium Chloride Carbon Dioxide Anion Gap BUN Creatinine Creat Clearance w eGFR POC Glucometer Random Glucose Hemoglobin A1c % Calcium Phosphorus Magnesium Total Bilirubin AST ALT Alkaline Phosphatase Creatine Kinase Creatine Kinase Index 1.2 CK-MB (CK-2) 4.675 H Troponin I Total Protein Albumin Triglycerides Cholesterol Total LDL Cholesterol HDL Cholesterol Urine Color Yellow Urine Appearance Slcloudy Urine pH 6.0 Ur Specific [place] 1.020 Urine Protein 3+ H Urine Glucose (UA) 3+ H Urine Ketones Negative Urine Blood 1+ H Urine Nitrite Negative Urine Bilirubin Negative Urine Urobilinogen Negative Ur Leukocyte Esterase 1+ H Urine WBC (Auto) 66 Urine RBC (Auto) 8 Ur Epithelial Cells Rare Urine Bacteria Moderate 08/29/17 08/29/17 08/30/17 20:45 20:46 05:41 WBC RBC Hgb Hct MCV MCH MCHC RDW Plt Count MPV PT with INR INR PTT (Actin FS) Sodium Potassium Chloride Carbon Dioxide Anion Gap BUN Creatinine Creat Clearance w eGFR POC Glucometer [id number] 154 Random Glucose Hemoglobin A1c % Calcium Phosphorus Magnesium Total Bilirubin AST ALT Alkaline Phosphatase Creatine Kinase 348 H Creatine Kinase Index 1.2 CK-MB (CK-2) 4.434 H Troponin I 0.02 Total Protein Albumin Triglycerides Cholesterol Total LDL Cholesterol HDL Cholesterol Urine Color Urine Appearance Urine pH Ur Specific [place] Urine Protein Urine Glucose (UA) Urine Ketones Urine Blood Urine Nitrite Urine Bilirubin Urine Urobilinogen Ur Leukocyte Esterase Urine WBC (Auto) Urine RBC (Auto) Ur Epithelial Cells Urine Bacteria 08/30/17 08/30/17 08/30/17 06:16 06:16 06:45 WBC 5.6 RBC 3.15 L Hgb 9.8 L Hct 29.6 L MCV 94.0 MCH 31.0 MCHC 33.0 RDW 15.1 Plt Count 203 MPV 9.3 PT with INR INR PTT (Actin FS) Sodium 143 Potassium 3.9 Chloride 111 H Carbon Dioxide 24 Anion Gap 8 BUN 26 H Creatinine 1.8 H Creat Clearance w eGFR 27.98 POC Glucometer Random Glucose 136 H Hemoglobin A1c % Calcium 8.1 L Phosphorus 3.7 Magnesium 2.1 Total Bilirubin 0.3 AST 22 ALT 22 Alkaline Phosphatase 86 Creatine Kinase Cancelled 310 H Creatine Kinase Index 1.1 CK-MB (CK-2) 3.458 Troponin I Cancelled 0.02 Total Protein 6.5 Albumin 2.5 L Triglycerides 273 H Cholesterol 326 H Total LDL Cholesterol 187 H HDL Cholesterol 77 H Urine Color Urine Appearance Urine pH Ur Specific [place] Urine Protein Urine Glucose (UA) Urine Ketones Urine Blood Urine Nitrite Urine Bilirubin Urine Urobilinogen Ur Leukocyte Esterase Urine WBC (Auto) Urine RBC (Auto) Ur Epithelial Cells Urine Bacteria 08/30/17 08/30/17 06:45 12:46 WBC RBC Hgb Hct MCV MCH MCHC RDW Plt Count MPV PT with INR INR PTT (Actin FS) Sodium Potassium Chloride Carbon Dioxide Anion Gap BUN Creatinine Creat Clearance w eGFR POC Glucometer Random Glucose Hemoglobin A1c % 10.1 H Calcium Phosphorus Magnesium Total Bilirubin AST ALT Alkaline Phosphatase Creatine Kinase Creatine Kinase Index CK-MB (CK-2) Troponin I 0.02 Total Protein Albumin Triglycerides Cholesterol Total LDL Cholesterol HDL Cholesterol Urine Color Urine Appearance Urine pH Ur Specific [place] Urine Protein Urine Glucose (UA) Urine Ketones Urine Blood Urine Nitrite Urine Bilirubin Urine Urobilinogen Ur Leukocyte Esterase Urine WBC (Auto) Urine RBC (Auto) Ur Epithelial Cells Urine Bacteria ECHO: Outpatient cardiac MRI may be helpful for evaluating L ventricular non compaction. LV function is borderline reduced. EF-50% . Mild concentric LV hypertrophy. Hypertrabeculated LV in certain views of LV. Mild MR, TR. RV systolic pressure RV systolic pressure elevated 30-40mmHG Active Medications Generic Name Dose Route Start Last Admin Trade Name Freq PRN Reason Stop Dose Admin Amlodipine Besylate 5 mg 08/30/17 10:00 08/30/17 10:09 Norvasc - PO 5 mg DAILY [facility] Administration Aspirin 81 mg 08/30/17 10:00 08/30/17 10:09 Asa - PO 81 mg DAILY [facility] Administration Atorvastatin Calcium 80 mg 08/29/17 22:00 08/29/17 23:45 Lipitor - PO 80 mg HS [facility] Administration Clopidogrel Bisulfate 75 mg 08/30/17 10:00 08/30/17 10:09 Plavix - PO 75 mg DAILY [facility] Administration Darunavir 600 mg 08/29/17 22:00 08/30/17 10:10 Prezista - PO 600 mg BID [facility] Administration Etravirine 200 mg 08/29/17 22:00 08/30/17 10:10 Intelence - PO 200 mg BID [facility] Administration Furosemide 40 mg 08/30/17 10:00 08/30/17 10:09 Lasix Injection - IVPUSH 40 mg DAILY [facility] Administration Gabapentin 400 mg 08/29/17 22:00 08/30/17 15:30 Neurontin - PO 400 mg TID [facility] Administration Heparin Sodium (Porcine) 1,000 unit 08/30/17 09:03 Heparin - IVPUSH PRN PRN Heparin Heparin Sodium (Porcine) 5,000 unit 08/30/17 09:03 Heparin - IVPUSH PRN PRN Heparin HEPARIN SOD,PORK IN 0.45% NACL 25,000 units in 500 mls @ 20 mls/hr 08/30/17 10 :00 08/30/17 10:32 Heparin-1/2ns 25,000 Units/500 IVPB 1,000 units/hr TITR [facility] 20 mls/hr Protocol Administration 1,000 UNITS/HR Insulin Aspart 1 vial 08/30/17 07:00 08/30/17 16:35 Novolog Vial Sliding Scale - SQ Not Given TIDAC [facility] Protocol Insulin Detemir 34 units 08/29/17 22:00 08/29/17 21:32 Levemir Vial SQ 34 unit HS [facility] Administration Metoprolol Succinate 50 mg 08/30/17 10:00 08/30/17 10:09 Toprol Xl - PO 50 mg DAILY [facility] Administration Non-Formulary Medication 60 mg 08/30/17 10:00 Daclatasvir Dihydrochloride [Daklinza] PO DAILY [facility] Raltegravir 400 mg 08/29/17 22:00 08/30/17 10:09 Isentress - PO 400 mg BID [facility] Administration ASSESSMENT/PLAN: Pt is a 66 yo F with PMHx of diastolic CHF(last ECHO-07/07), [place] (s/p stent placement 03/2016, 12/2016), IDDM, HTN, HLD, HIV and small SDH 04/2016, recent admission for PNA (07/09) presenting with a 4 day hx of SOB #L Abdominal pain with epigastric tenderness R/O atypical chest pain vs GERD : EKG stat- Likely new T wave inversions Repeat trops- negative x3 Tabs protonix 40mg daily Monitor #Right foot swelling - DVT positive Bilateral pedal edema R>L Ambulates with difficulty, recent travel by air Duplex US R LE shows DVT IDDM with known medication non compliance R/O diabetic foot Xray R foot-AP/Lateral- no acute pathology Received SQ lovenox 100mg yesterday Cr-1.8 today Plan stop lovenox, start heparin gtt aPTT CBC #R/O PE Continue iv heparin gtt V/Q scan stat- to be done when xray improves Dr Godinez consulted- appreciate recommendations #Acute CHF exacerbation: Pt clinically improved SOB, improving creps Likely due to medication non compliance Pt diagnosed with diastolic CHF - ECHO 07/07 Repeat ECHO- see above, will need MRI as an outpatient [id number] CXR- diffuse pulmonary vascular congestion with possible L pleural effusion Received iv Lasix 40mg in ED Continue iv lasix 40mg daily Daily weights Salt restriction- less than 1200mg per daily Strict ins and outs To consider follow up measures addressing compliance on discharge EKG- no features of ischemia- old T waves Repeat ECHO: documented above Negative trop x3 Continue Toprol XL 50mg daily Dr Hsieh on board- increased toprol to 100mg To continue amlodipine for now until renal function improves for replacement with ARBs or ACEI #small SDH 04/2016 No obvious lateralizing signs/ residual deficits Cont ASA Cont metoprolol D/W Dr Medina -considering previous bleed, now on heparin gtt for possible PE , pt should get CT head w/o contrast Will follow #NÉSTOR on CKD: Cr- 1.7 on presentation, now 1.8 May currently be at her baseline Monitor BMP Lovenox stopped Avoid nephrotoxic drugs # Hx of [place] (s/p stent placement 03/2016, 12/2016) Cont daily ASA 81mg Toprol XL 50mg daily #IDDM SQ Insulin Detemir 34U HS SQ Insulin Aspart 16u TID -stopped Pt on sliding scale Glucose in the 100s this am #Diabetic neuropathy Gabapentin 400 tid #HTN Amlodipine 5mg daily Toprol XL 100mg daily #HLD Lipitor 80mg PO HS #HIV Daklinza 60mg PO daily Raltegravir 400 mg PO BID Darunavir 600mg PO bid Etravirine 200mg bid To talk to PCP to reconcile meds #Chronic anemia Iron Polysac/Iron Heme/FA/B12 PO ACBK #FEN No IVF at this time, patient is being diuresed Monitor electrolytes and replete as needed Low salt/diabetic diet Dispo: Admit Tele Visit type - Emergency Visit Emergency Visit: Yes ED Registration Date: 08/29/17 Care time: The patient presented to the Emergency Department on the above date and was hospitalized for further evaluation of their emergent condition. - New Patient This patient is new to me today: No - Critical Care Critical Care patient: No - Discharge Referral Referred to [facility] Med P.C.: No
[2017-08-30] MEDS: PANTOPRAZOLE 40 MG TABLET (FP) PO SCH (18:06)
[2017-08-30] MEDS: HEPARIN NA (PORCINE) 5,000 UNITS/ML 1ML VIAL IVPUSH PRN (18:06)
[2017-08-30] MEDS ORDERED: ENOXAPARIN NA (PORCINE) 100 MG/1 ML DISP.SYRIN SQ SCH (20:00)
[2017-08-30] MEDS ORDERED: INSULIN (NOVOLOG) ASPART 100 UNITS/ML 10ML VIAL ONE (21:32)
[2017-08-30] MEDS: INSULIN DETEMIR 100 UNITS/ML MDV SQ SCH (22:05)
[2017-08-30] MEDS: ATORVASTATIN CA 80 MG TABLET (FP) PO SCH (22:06)
--- NOTE | 2017-08-30 23:19 | CONSULT ---
Consult - text type - Consultation Consultation Note: Patient is a 66 year old black female with a significant past medical history of diastolic CHF, [place] (s/p stent placement 03/2016; additional stent about 3 months ago at [place], [place]), IDDM, HTN, HLD, CKD,obesity, HIV and small SDH after a fall, ?gout, who presents with complaints of difficulty breathing that began 5 days ago. Patient reports visiting her friend in [place] when she ran out of her medication 5 days go. She reports experiencing gradual shortness of breath over the 5 days until she could no longer bear it. Patient reports experiencing chronic cough as well as increased bilateral leg edema . she recently traveled to [place] 3 weeks ago and returned 08/27 She has noticed increased leg edema while in [place] Denies chest pain, Nausea, vomiting. Denies contact with sick individual, out of state travelling. Denies any other symptoms. Sedentary lifestyle. c/o rt. toe pain Allergies: None Social history: No smoking. No alcohol. No illicit drugs. Surgical history: coronary stents 2015 and 2017 - History Source History Provided By: Patient, Family Member, Medical Record Limitations to Obtaining History: Poor Historian - Past Medical History Cardio/Vascular: Yes: CAD, CHF, HTN, Hyperlipdemia Renal/: Yes: Renal Inusuff Reproductive: Yes: Postmenopausal Infectious Disease: Yes: HIV Psych: Yes: Anxiety Endocrine: Yes: Diabetes Mellitus - Past Surgical History Past Surgical History: Yes: Breast Biopsy, Stent (coronary) - Smoking History Smoking history: Never smoked - Social History History of Recent Travel: Yes ([place]; returned 08/27/17) Home Medications - Allergies Allergies/Adverse Reactions: Allergies Allergy/AdvReac Type Severity Reaction Status Date / Time No Known Allergies Allergy Verified 08/29/17 13:49 - Home Medications Home Medications: Ambulatory Orders Aspirin 81 mg PO DAILY 07/07/17 Cholecalciferol (Vitamin D3) [D3-2000] 2,000 unit PO DAILY 07/07/17 Clopidogrel Bisulfate [Clopidogrel] 75 mg PO DAILY 07/07/17 Daclatasvir Dihydrochloride [Daklinza] 60 mg PO DAILY 07/07/17 Darunavir Ethanolate [Prezista -] 600 mg PO BID 07/07/17 Etravirine [Intelence -] 200 mg PO BID 07/07/17 Insulin Aspart (Niacinamide) [Fiasp 100 Unit/ml Vial] 16 unit SQ TID 07/07/17 Insulin Detemir [Levemir Flextouch] 34 unit SQ HS 07/07/17 Iron Polysac/Iron Heme/FA/B12 [Bifera Rx Tablet] 1 each PO ACBK 07/07/17 Lactic Acid [Lactinol Hx] 0 gm TP ASDIR 07/07/17 Raltegravir [Isentress] 400 mg PO BID 07/07/17 Amlodipine Besylate [Norvasc -] 5 mg PO DAILY 07/08/17 Gabapentin 400 mg PO TID 07/08/17 Atorvastatin Ca [Lipitor] 80 mg PO HS #30 tablet 07/09/17 Furosemide [Lasix -] 40 mg PO DAILY #30 tablet 07/09/17 Metoprolol Succinate [Toprol XL -] 50 mg PO DAILY #30 tab.sr.24h 07/09/17 Metoprolol Tartrate 1 tab PO BID 08/30/17 Ritonavir [Norvir] 100 mg PO BID 08/30/17 Current Medications Generic Name Dose Route Start Last Admin Trade Name Freq PRN Reason Stop Dose Admin Amlodipine Besylate 5 mg 08/30/17 10:00 08/30/17 10:09 Norvasc - PO 5 mg DAILY [facility] Administration Aspirin 81 mg 08/30/17 10:00 08/30/17 10:09 Asa - PO 81 mg DAILY W[facility] Administration Atorvastatin Calcium 80 mg 08/29/17 22:00 08/30/17 22:06 Lipitor - PO 80 mg HS WILNER Administration Clopidogrel Bisulfate 75 mg 08/30/17 10:00 08/30/17 10:09 Plavix - PO 75 mg DAILY WILNER Administration Darunavir 600 mg 08/29/17 22:00 08/30/17 22:06 Prezista - PO 600 mg BID WILNER Administration Etravirine 200 mg 08/29/17 22:00 08/30/17 22:06 Intelence - PO 200 mg BID W[facility] Administration Furosemide 40 mg 08/30/17 10:00 08/30/17 10:09 Lasix Injection - IVPUSH 40 mg DAILY WILNER Administration Gabapentin 400 mg 08/29/17 22:00 08/31/17 06:20 Neurontin - PO 400 mg TID WILNER Administration Heparin Sodium (Porcine) 1,000 unit 08/30/17 09:03 08/31/17 01:39 Heparin - IVPUSH 1,000 unit PRN PRN Administration Heparin Heparin Sodium (Porcine) 5,000 unit 08/30/17 09:03 Heparin - IVPUSH PRN PRN Heparin HEPARIN SOD,PORK IN 0.45% NACL 25,000 units in 500 mls @ 20 mls/hr 08/30/17 10 :00 08/31/17 01:40 Heparin-1/2ns 25,000 Units/500 IVPB 1,200 units/hr TITR [facility] 24 mls/hr Protocol Administration 1,000 UNITS/HR Insulin Aspart 1 vial 08/30/17 07:00 08/31/17 06:20 Novolog Vial Sliding Scale - SQ Not Given [facility] Protocol Insulin Detemir 34 units 08/29/17 22:00 08/30/17 22:05 Levemir Vial SQ 34 unit HS [facility] Administration Metoprolol Succinate 100 mg 08/31/17 10:00 Toprol Xl - PO DAILY [facility] Non-Formulary Medication 60 mg 08/30/17 10:00 Daclatasvir Dihydrochloride [Daklinza] PO DAILY [facility] Pantoprazole Sodium 40 mg 08/30/17 16:45 08/30/17 18:06 Protonix - PO 40 mg DAILY [facility] Administration Raltegravir 400 mg 08/29/17 22:00 08/30/17 22:06 Isentress - PO 400 mg BID [facility] Administration Vital Signs Temperature 98.3 F 08/29/17 13:49 Pulse Rate 102 H 08/29/17 15:33 Respiratory Rate 18 08/29/17 13:49 Blood Pressure 157/71 08/29/17 13:49 O2 Sat by Pulse Oximetry (%) 100 08/29/17 15:33 Constitutional: Yes: Well Nourished, Anxious Respiratory: Yes: Diminished Gastrointestinal: Yes: Soft, Abdomen, Obese Cardiovascular: Yes: Tachycardia Heart Sounds: Yes: S1, S2, S4 Edema: LLE: 1+, RLE: 2+ Neurological: Yes: Alert, Oriented, Weakness Ejection Fraction %: LVEF > or = 40 % A/P Patient is a 66 year old black female with a significant past medical history of diastolic CHF, [place] (s/p stent placement 03/2016; additional stent about 3 months ago at [place], [place]), IDDM, HTN, HLD, CKD<obesity, HIV and small SDH after a fall, ?gout, who presents with complaints of difficulty breathing that began 5 days ago. Patient reports visiting her friend in [place] when she ran out of her medication 5 days go. She reports experiencing gradual shortness of breath over the 5 days until she could no longer bear it. Patient reports experiencing chronic cough as well as increased leg edema Rt. > Lt. She recently traveled to [place] 3 weeks ago and returned 08/27 She has noticed increased leg edema while in [place] Sedentary lifestyle. c/o rt. toe pain RLE poplital DVT-- ?? provoked from recent travel to [place] On heparin drip given h/o Subdural hematoma from fall >1 yr. ago ---recheck CT to ensure resolution of SDH Will also check neuro consult Will request Cardiology input---patient is on asa/plavix and now heparin If unable to anticoagulate will consider ivc filter 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 with cardiology team choice of a/c as patient on dual antiplatelet therapy with CKD and now DVT ---? bridge to coumadin vs NOAC baseline anemia--? chronic disease check iron studies/ferritin check stool occult
[2017-08-31] MEDS: HEPARIN NA (PORCINE) 5,000 UNITS/ML 1ML VIAL IVPUSH PRN ×2 (01:39→08:44)
[2017-08-31] MEDS: HEPARIN SOD,PORK IN 0.45% NACL 25,000 UNITS/500 ML INFUS.BAG IVPB SCH ×3 (01:40→16:51)
[2017-08-31] MEDS: GABAPENTIN 400 MG CAPSULE (FP) PO SCH ×3 (06:20→22:37)
[2017-08-31] MEDS: INSULIN SLIDING SCALE (NOVOLOG) 1 VIAL SQ SCH ×3 (06:20→17:03)
[2017-08-31 07:22] LABS: BASO % 0.9 % (0-2.0); EOS % 5.1 % (0-4.5); HEMOGLOBIN 9.4 GM/dL (10.7-15.3); LYMPH % 26.5 % (8-40); MCH 31.1 pg (25.7-33.7); MCHC 33.7 g/dl (32.0-36.0); MEAN CELL VOLUME 92.4 fl (80-96); MEAN PLT VOLUME 9.5 fl (7.5-11.1); MONO % 9.9 % (3.8-10.2); NEUT % 57.6 % (42.8-82.8); PLATELET COUNT 201 K/MM3 (134-434); RBC 3.03 M/mm3 (3.60-5.2); RDW 14.9 % (11.6-15.6); WHITE BLOOD COUNT 5.1 K/mm3 (4.0-10.0)
[2017-08-31 07:24] LABS: INR 1.01 (0.82-1.09); PROTHROMBIN TIME (PATIENT) 11.4 SEC (9.7-13.0)
[2017-08-31 07:27] LABS: ACTIVATED PTT 49.6 SECONDS (26.9-34.4)
[2017-08-31 07:43] LABS: ALBUMIN 2.4 g/dl (3.4-5.0); ANION GAP 7 (8-16); BLOOD UREA NITROGEN 24 mg/dL (7-18); CALCIUM 8.3 mg/dL (8.5-10.1); CHLORIDE 107 mmol/L (98-107); CO2 28 mmol/L (21-32); CREATININE 1.8 mg/dL (0.55-1.02); GLUCOSE,RANDOM 146 mg/dL (74-106); MAGNESIUM 1.8 mg/dL (1.8-2.4); PHOSPHOROUS 3.5 mg/dL (2.5-4.9); POTASSIUM 3.7 mmol/L (3.5-5.1); SGOT/AST 17 U/L (15-37); SGPT/ALT 16 U/L (12-78); SODIUM 142 mmol/L (136-145)
[2017-08-31 07:45] LABS: ALK PHOS 72 U/L (45-117); BILIRUBIN,TOTAL 0.5 mg/dL (0.2-1.0); TOT PROT 5.9 g/dl (6.4-8.2)
--- NOTE | 2017-08-31 08:46 | PN ---
Progress Note, Physician History of Present Illness: Patient is a 66 year old black female with a significant past medical history of diastolic CHF, [place] (s/p stent placement 03/2016; additional stent about 3 months ago at [place], [place]), IDDM, HTN, HLD, obesity, HIV and small SDH 2016, who presents to the ED with complaints of difficulty breathing that began 5 days ago. Patient reports visiting her friend in [place] when she ran out of her medication 5 days go. She reports experiencing gradual shortness of breath over the 5 days until she could no longer bear it. Patient reports experiencing chronic cough as well as increased bilateral leg edema since taking her medication. Denies chest pain, Nausea, vomiting. Denies contact with sick individual, out of state travelling. Denies any other symptoms. Sedentary lifestyle. Allergies: None Social history: No smoking. No alcohol. No illicit drugs. Surgical history: coronary stents 2015 and 2017 - Current Medication List Current Medications: Active Medications Amlodipine Besylate (Norvasc -) 5 mg PO DAILY [facility] Last Admin: 08/30/17 10:09 Dose: 5 mg Aspirin (Asa -) 81 mg PO DAILY [facility] Last Admin: 08/30/17 10:09 Dose: 81 mg Atorvastatin Calcium (Lipitor -) 80 mg PO HS [facility] Last Admin: 08/30/17 22:06 Dose: 80 mg Clopidogrel Bisulfate (Plavix -) 75 mg PO DAILY [facility] Last Admin: 08/30/17 10:09 Dose: 75 mg Darunavir (Prezista -) 600 mg PO BID [facility] Last Admin: 08/30/17 22:06 Dose: 600 mg Etravirine (Intelence -) 200 mg PO BID [facility] Last Admin: 08/30/17 22:06 Dose: 200 mg Furosemide (Lasix Injection -) 40 mg IVPUSH DAILY [facility] Last Admin: 08/30/17 10:09 Dose: 40 mg Gabapentin (Neurontin -) 400 mg PO TID [facility] Last Admin: 08/31/17 06:20 Dose: 400 mg Heparin Sodium (Porcine) (Heparin -) 1,000 unit IVPUSH PRN PRN PRN Reason: Heparin Last Admin: 08/31/17 01:39 Dose: 1,000 unit Heparin Sodium (Porcine) (Heparin -) 5,000 unit IVPUSH PRN PRN PRN Reason: Heparin HEPARIN SOD,P[place] IN 0.45% NACL (Heparin-1/2ns 25,000 Units/500) 25,000 units in 500 mls @ 20 mls/hr IVPB TITR [facility]IL[facility]; 1,000 UNITS/HR PRN Reason: Protocol Last Admin: 08/31/17 01:40 Dose: 1,200 units/hr, 24 mls/hr Insulin Aspart (Novolog Vial Sliding Scale -) 1 vial SQ TIDAC [facility] PRN Reason: Protocol Last Admin: 08/31/17 06:20 Dose: Not Given Insulin Detemir (Levemir Vial) 34 units SQ HS [facility] Last Admin: 08/30/17 22:05 Dose: 34 unit Metoprolol Succinate (Toprol Xl -) 100 mg PO DAILY [facility] Non-Formulary Medication (Daclatasvir Dihydrochloride [Daklinza]) 60 mg PO DAILY [facility] Pantoprazole Sodium (Protonix -) 40 mg PO DAILY [facility] Last Admin: 08/30/17 18:06 Dose: 40 mg Raltegravir (Isentress -) 400 mg PO BID [facility] Last Admin: 08/30/17 22:06 Dose: 400 mg - Objective Vital Signs: Vital Signs Temperature 97.9 F 08/31/17 06:00 Pulse Rate 82 08/31/17 06:00 Respiratory Rate 18 08/31/17 06:00 Blood Pressure 151/93 08/31/17 06:00 O2 Sat by Pulse Oximetry (%) 95 08/30/17 21:00 Eyes: Yes: WNL, Conjunctiva Clear, EOM Intact HENT: Yes: WNL, Atraumatic, Normocephalic Neck: Yes: WNL, Supple, Trachea Midline Cardiovascular: Yes: WNL, Regular Rate and Rhythm Respiratory: Yes: WNL, Regular, CTA Bilaterally Gastrointestinal: Yes: WNL, Normal Bowel Sounds Genitourinary: Yes: WNL Musculoskeletal: Yes: WNL Extremities: Yes: WNL Edema: No Integumentary: Yes: WNL Neurological: Yes: WNL, Alert, Oriented ...Motor Strength: WNL Psychiatric: Yes: WNL Labs: CBC, BMP 08/31/17 06:28 08/31/17 06:28 INR, PTT INR 1.01 (0.82-1.09) 08/31/17 06:28 Assessment/Plan Problems (1) HTN (hypertension) Assessment/Plan: On metorpolol succinate (will increase dose to 100 mg daily); on amlodipine and furosemide. If renal function improves, add ACEI or ARB for HTN and renal protection with DM (and may stop amlodipine then if BP falls too precipitously). Code(s): I10 - ESSENTIAL (PRIMARY) HYPERTENSION Qualifiers: Hypertension type: unspecified Qualified Code(s): I10 - Essential (primary ) hypertension (2) Acute on chronic systolic and diastolic heart failure, NYHA class 2 Assessment/Plan: Increase metoprolol. ?Noncompaction syndrome (LV); f/u cardiac records, Consider cardiac MRI as oupatient, if not recently done. Code(s): I50.43 - ACUTE ON CHRONIC COMBINED SYSTOLIC AND DIASTOLIC HRT FAIL (3) DVT (deep venous thrombosis) Assessment/Plan: DVT of lower extremity. Unable to do CTA to r/o PE due to renal dysfunction. On anticoagulants. Code(s): I82.409 - ACUTE EMBOLISM AND THOMBOS UNSP DEEP VN UNSP LOWER EXTREMITY Qualifiers: DVT location: upper extremity (4) Gout Code(s): M10.9 - GOUT, UNSPECIFIED (5) Obesity Code(s): E66.9 - OBESITY, UNSPECIFIED (6) Sleep apnea Code(s): G47.30 - SLEEP APNEA, UNSPECIFIED (7) CAD (coronary artery disease) Assessment/Plan: s/p [place]-->stents (the latest was about 3 moths ago at [facility]) F/u records. 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 Pt is presently already on anticoagulant for DVT. She is also being treated for systollic/diastolic CHF. Code(s): I42.4 - ENDOCARDIAL FIBROELASTOSIS
--- NOTE | 2017-08-31 09:18 | PN ---
Teaching Attending Note Name of Resident: Bozena Davis ATTENDING PHYSICIAN STATEMENT I saw and evaluated the patient. I reviewed the resident's note and discussed the case with the resident. I agree with the resident's findings and plan as documented with exceptions below. SUBJECTIVE: Patient seen and examined. Breathing improved, leg pain/swelling improving, no new complaints, no dark or bloody stools. OBJECTIVE: Vital Signs Period Temp Pulse Resp BP Sys/Stallings Pulse Ox Last 24 Hr 97.7 F-98.4 F 82-99 18-20 149-181/69-99 95 Intake & Output 08/28/17 08/29/17 08/30/17 08/31/17 23:59 23:59 23:59 23:59 Intake Total 250 1160 452 Output Total 900 Balance 250 260 452 Weight 237 lb 209 lb 2 oz 231 lb General: sitting in bed no acute distress Chest: few occasional basilar rales, otherwise CTAB Abdomen:soft, obese, NT extremities: bilateral LE pitting edema R>L, no tenderness on right great toe today Home Medication List Medication Instructions Recorded Confirmed Type Aspirin 81 mg PO DAILY 07/07/17 07/07/17 History Cholecalciferol (Vitamin D3) 2,000 unit PO DAILY 07/07/17 07/07/17 History [D3-2000] Clopidogrel Bisulfate [Clopidogrel] 75 mg PO DAILY 07/07/17 08/30/17 History Daclatasvir Dihydrochloride 60 mg PO DAILY 07/07/17 07/07/17 History [Daklinza] Darunavir Ethanolate [Prezista -] 600 mg PO BID 07/07/17 08/30/17 History Etravirine [Intelence -] 200 mg PO BID 07/07/17 08/30/17 History Insulin Aspart (Niacinamide) 16 unit SQ TID 07/07/17 07/07/17 History [Fiasp 100 Unit/ml Vial] Insulin Detemir [Levemir Flextouch] 34 unit SQ HS 07/07/17 07/07/17 History Iron Polysac/Iron Heme/FA/B12 1 each PO ACBK 07/07/17 07/08/17 History [Bifera Rx Tablet] Lactic Acid [Lactinol Hx] 0 gm TP ASDIR 07/07/17 07/07/17 History Raltegravir [Isentress] 400 mg PO BID 07/07/17 08/30/17 History Amlodipine Besylate [Norvasc -] 5 mg PO DAILY 07/08/17 08/30/17 History Gabapentin 400 mg PO TID 07/08/17 07/08/17 History Metoprolol Tartrate 1 tab PO BID 08/30/17 08/30/17 History Ritonavir [Norvir] 100 mg PO BID 08/30/17 08/30/17 History Active Medications Generic Name Dose Route Start Last Admin Trade Name Freq PRN Reason Stop Dose Admin Amlodipine Besylate 5 mg 08/30/17 10:00 08/30/17 10:09 Norvasc - PO 5 mg DAILY [facility]NER Administration Aspirin 81 mg 08/30/17 10:00 08/30/17 10:09 Asa - PO 81 mg DAILY WILNER Administration Atorvastatin Calcium 80 mg 08/29/17 22:00 08/30/17 22:06 Lipitor - PO 80 mg HS WILNER Administration Clopidogrel Bisulfate 75 mg 08/30/17 10:00 08/30/17 10:09 Plavix - PO 75 mg DAILY WILNER Administration Darunavir 600 mg 08/29/17 22:00 08/30/17 22:06 Prezista - PO 600 mg BID WILNER Administration Etravirine 200 mg 08/29/17 22:00 08/30/17 22:06 Intelence - PO 200 mg BID WILNER Administration Furosemide 40 mg 08/30/17 10:00 08/30/17 10:09 Lasix Injection - IVPUSH 40 mg DAILY WILNER Administration Gabapentin 400 mg 08/29/17 22:00 08/31/17 06:20 Neurontin - PO 400 mg TID WILNER Administration Heparin Sodium (Porcine) 1,000 unit 08/30/17 09:03 08/31/17 01:39 Heparin - IVPUSH 1,000 unit PRN PRN Administration Heparin Heparin Sodium (Porcine) 5,000 unit 08/30/17 09:03 Heparin - IVPUSH PRN PRN Heparin HEPARIN SOD,PORK IN 0.45% NACL 25,000 units in 500 mls @ 20 mls/hr 08/30/17 10 :00 08/31/17 01:40 Heparin-1/2ns 25,000 Units/500 IVPB 1,200 units/hr TITR WILNER 24 mls/hr Protocol Administration 1,000 UNITS/HR Insulin Aspart 1 vial 08/30/17 07:00 08/31/17 06:20 Novolog Vial Sliding Scale - SQ Not Given TIDAC [facility] Protocol Insulin Detemir 34 units 08/29/17 22:00 08/30/17 22:05 Levemir Vial SQ 34 unit HS [facility] Administration Metoprolol Succinate 100 mg 08/31/17 10:00 Toprol Xl - PO DAILY [facility] Non-Formulary Medication 60 mg 08/30/17 10:00 Daclatasvir Dihydrochloride [Daklinza] PO DAILY [facility] Pantoprazole Sodium 40 mg 08/30/17 16:45 08/30/17 18:06 Protonix - PO 40 mg DAILY [facility] Administration Raltegravir 400 mg 08/29/17 22:00 08/30/17 22:06 Isentress - PO 400 mg BID WILNER Administration Laboratory Results - last 24 hr 08/30/17 08/30/17 08/30/17 06:16 12:46 16:30 WBC RBC Hgb Hct MCV MCH MCHC RDW Plt Count MPV Neutrophils % Lymphocytes % Monocytes % Eosinophils % Basophils % PT with INR INR PTT (Actin FS) 42.0 H D Sodium Potassium Chloride Carbon Dioxide Anion Gap BUN Creatinine Creat Clearance w eGFR POC Glucometer Random Glucose Calcium Phosphorus Magnesium Total Bilirubin AST ALT Alkaline Phosphatase Creatine Kinase Index 1.1 CK-MB (CK-2) 3.458 Troponin I 0.02 Total Protein Albumin 08/30/17 08/30/17 08/31/17 16:30 22:04 00:30 WBC RBC Hgb Hct MCV MCH MCHC RDW Plt Count MPV Neutrophils % Lymphocytes % Monocytes % Eosinophils % Basophils % PT with INR INR PTT (Actin FS) 40.5 H Sodium Potassium Chloride Carbon Dioxide Anion Gap BUN Creatinine Creat Clearance w eGFR POC Glucometer 250 330 Random Glucose Calcium Phosphorus Magnesium Total Bilirubin AST ALT Alkaline Phosphatase Creatine Kinase Index CK-MB (CK-2) Troponin I Total Protein Albumin 08/31/17 08/31/17 08/31/17 06:18 06:28 06:28 WBC 5.1 RBC 3.03 L Hgb 9.4 L Hct 28.0 L MCV 92.4 MCH 31.1 MCHC 33.7 RDW 14.9 Plt Count 201 MPV 9.5 Neutrophils % 57.6 Lymphocytes % 26.5 Monocytes % 9.9 Eosinophils % 5.1 H Basophils % 0.9 PT with INR 11.40 INR 1.01 PTT (Actin FS) 49.6 H Sodium Potassium Chloride Carbon Dioxide Anion Gap BUN Creatinine Creat Clearance w eGFR POC Glucometer 170 Random Glucose Calcium Phosphorus Magnesium Total Bilirubin AST ALT Alkaline Phosphatase Creatine Kinase Index CK-MB (CK-2) Troponin I Total Protein Albumin 08/31/17 06:28 WBC RBC Hgb Hct MCV MCH MCHC RDW Plt Count MPV Neutrophils % Lymphocytes % Monocytes % Eosinophils % Basophils % PT with INR INR PTT (Actin FS) Sodium 142 Potassium 3.7 Chloride 107 Carbon Dioxide 28 Anion Gap 7 L BUN 24 H Creatinine 1.8 H Creat Clearance w eGFR 27.98 POC Glucometer Random Glucose 146 H Calcium 8.3 L Phosphorus 3.5 Magnesium 1.8 Total Bilirubin 0.5 D AST 17 ALT 16 Alkaline Phosphatase 72 Creatine Kinase Index CK-MB (CK-2) Troponin I Total Protein 5.9 L Albumin 2.4 L CTbrain neg for acute process ASSESSMENT AND PLAN: 66 yof with acute on chronic diastolic HF exacerbation in the setting of not taking her lasix and right toe pain and swelling -Dyspnea, acute on chronic diastolic heart failure exacerbation, ?PE given RLE DVT -RLE near occlusive Popliteal vein DVT -CAD s/p PCI in 03/2016 and RCA x 2 in 12/2016 -Hyperlipidemia -Obesity -IDDM, poorly controlled -HTN -Mitral regurgitation -?noncompaction syndrome -HIV on HAART -h/o Fronto-parietal CVA -CKD stage III Plan: Continue heparin drip. Pulmonary input noted, V/Q scan on Saturday as lungs improve with diuresis. Hematology input noted, CT brain neg for concerns. Follow up iron panel/FOBT. Continue Lasix 40 mg IV daily, Cardiology consult. strict I/Os and daily weights. Cr plateaued, monitor renal function. ACS ruled out, 2D echo results reviewed. Outpatient cardiac MRI. Foot xray noted, some swelling, no acute concerns. Lipid panel noted, Suspect component of non compliance. Continue statin. Monitor renal function. Continue ASA/plavix/Toprol XL, statin, Continue levemir and ISS. Increase ISS to start > 150. Resume novolog premeal base don blood sugar readings.A1c 10.1. Continue HAART. DVTPPx full dose heparin Dispo pending clinical improvement. Will need PT eval and case management input once clinically improved. Plan discussed with patient in detail and all questions answered.
[2017-08-31] MEDS ORDERED: PT OWN MED DRAWER 7, Y5N ONE ×3 (09:48→21:18)
--- NOTE | 2017-08-31 09:48 | PN ---
Physical Exam: SUBJECTIVE: Patient seen and examined. She is feeling good today, denies SOB, palpitations, chest pain, dizziness, leg pain. OBJECTIVE: Vital Signs Period Temp Pulse Resp BP Sys/Stallings Pulse Ox Last 24 Hr 97.7 F-98.4 F 82-99 18-20 149-181/69-99 95 GENERAL: The patient is awake, alert, and fully oriented, in no acute distress. HEAD: Normal with no signs of trauma. EYES: extraocular movements intact, sclera anicteric, conjunctiva clear. ENT: oropharynx clear without exudates, moist mucous membranes. NECK: Trachea midline, full range of motion, supple. LUNGS: Breath sounds equal, clear to auscultation bilaterally, no wheezes, no crackles, no accessory muscle use. HEART: Regular rate and rhythm, S1, S2 without murmur, rub or gallop. ABDOMEN: Obese, soft, nontender, nondistended, normoactive bowel sounds, no guarding, no rebound, no hepatosplenomegaly, no masses. EXTREMITIES: 2+ pulses, warm, RLE edema 2+, more in right foot, left lower extremity 1+ peripheral edema. NEUROLOGICAL: Normal speech, gait not observed. PSYCH: Normal mood, normal affect. SKIN: Warm, dry, normal turgor. Laboratory Results - last 24 hr 08/30/17 08/30/17 08/30/17 12:46 16:30 16:30 WBC RBC Hgb Hct MCV MCH MCHC RDW Plt Count MPV Neutrophils % Lymphocytes % Monocytes % Eosinophils % Basophils % PT with INR INR PTT (Actin FS) 42.0 H D Sodium Potassium Chloride Carbon Dioxide Anion Gap BUN Creatinine Creat Clearance w eGFR POC Glucometer 250 Random Glucose Calcium Phosphorus Magnesium Total Bilirubin AST ALT Alkaline Phosphatase Troponin I 0.02 Total Protein Albumin 08/30/17 08/31/17 08/31/17 22:04 00:30 06:18 WBC RBC Hgb Hct MCV MCH MCHC RDW Plt Count MPV Neutrophils % Lymphocytes % Monocytes % Eosinophils % Basophils % PT with INR INR PTT (Actin FS) 40.5 H Sodium Potassium Chloride Carbon Dioxide Anion Gap BUN Creatinine Creat Clearance w eGFR POC Glucometer 330 170 Random Glucose Calcium Phosphorus Magnesium Total Bilirubin AST ALT Alkaline Phosphatase Troponin I Total Protein Albumin 08/31/17 08/31/17 08/31/17 06:28 06:28 06:28 WBC 5.1 RBC 3.03 L Hgb 9.4 L Hct 28.0 L MCV 92.4 MCH 31.1 MCHC 33.7 RDW 14.9 Plt Count 201 MPV 9.5 Neutrophils % 57.6 Lymphocytes % 26.5 Monocytes % 9.9 Eosinophils % 5.1 H Basophils % 0.9 PT with INR 11.40 INR 1.01 PTT (Actin FS) 49.6 H Sodium 142 Potassium 3.7 Chloride 107 Carbon Dioxide 28 Anion Gap 7 L BUN 24 H Creatinine 1.8 H Creat Clearance w eGFR 27.98 POC Glucometer Random Glucose 146 H Calcium 8.3 L Phosphorus 3.5 Magnesium 1.8 Total Bilirubin 0.5 D AST 17 ALT 16 Alkaline Phosphatase 72 Troponin I Total Protein 5.9 L Albumin 2.4 L Active Medications Generic Name Dose Route Start Last Admin Trade Name Freq PRN Reason Stop Dose Admin Amlodipine Besylate 5 mg 08/30/17 10:00 08/30/17 10:09 Norvasc - PO 5 mg DAILY WILNER Administration Aspirin 81 mg 08/30/17 10:00 08/30/17 10:09 Asa - PO 81 mg DAILY WIL[facility] Administration Atorvastatin Calcium 80 mg 08/29/17 22:00 08/30/17 22:06 Lipitor - PO 80 mg HS WILNER Administration Clopidogrel Bisulfate 75 mg 08/30/17 10:00 08/30/17 10:09 Plavix - PO 75 mg DAILY WILNER Administration Darunavir 600 mg 08/29/17 22:00 08/30/17 22:06 Prezista - PO 600 mg BID WILNER Administration Etravirine 200 mg 08/29/17 22:00 08/30/17 22:06 Intelence - PO 200 mg BID WILNER Administration Furosemide 40 mg 08/30/17 10:00 08/30/17 10:09 Lasix Injection - IVPUSH 40 mg DAILY WILNER Administration Gabapentin 400 mg 08/29/17 22:00 08/31/17 06:20 Neurontin - PO 400 mg TID [facility] Administration Heparin Sodium (Porcine) 1,000 unit 08/30/17 09:03 08/31/17 01:39 Heparin - IVPUSH 1,000 unit PRN PRN Administration Heparin Heparin Sodium (Porcine) 5,000 unit 08/30/17 09:03 Heparin - IVPUSH PRN PRN Heparin HEPARIN SOD,PORK IN 0.45% NACL 25,000 units in 500 mls @ 20 mls/hr 08/30/17 10 :00 08/31/17 01:40 Heparin-1/2ns 25,000 Units/500 IVPB 1,200 units/hr TITR [facility] 24 mls/hr Protocol Administration 1,000 UNITS/HR Insulin Aspart 1 vial 08/31/17 09:18 Novolog Vial Sliding Scale - SQ TIDAC [facility] Protocol Insulin Detemir 34 units 08/29/17 22:00 08/30/17 22:05 Levemir Vial SQ 34 unit HS WILNER Administration Metoprolol Succinate 100 mg 08/31/17 10:00 Toprol Xl - PO DAILY [facility] Non-Formulary Medication 60 mg 08/30/17 10:00 Daclatasvir Dihydrochloride [Daklinza] PO DAILY W[facility]NER Pantoprazole Sodium 40 mg 08/30/17 16:45 08/30/17 18:06 Protonix - PO 40 mg DAILY [facility] Administration Raltegravir 400 mg 08/29/17 22:00 08/30/17 22:06 Isentress - PO 400 mg BID WILNER Administration ASSESSMENT/PLAN: The pt is a 66 y/o female with PMH of diastolic CHF, CAD s/p stent, IDDM, HTN, HLD, HIV, presented with SOB, found to have LE DVT. RLE DVT: -recent long distance travel, first episode of DVT -Duplex US R LE shows DVT -the patient Cr is still elevated to 1.8, not a candidate for CTA. Will continue to monitor over the weekend and obtain V/Q scan on Saturday. -continue heparin gtt -f/u PTT -f/u Pulm recommendations-Dr Godinez Acute diastolic CHF exacerbation: -possibly due to non compliance with home medications -Pt clinically improved,no SOB today -continue lasix 40 mg daily -fluid restriction, low Na diet -daily weights -cardiac workup negative for acute ACS: neg troponins, no acute changes on EKG, -ECHO repeated. Will f/u Cardiology recommendations, MRI as outpatient History of small SDH 04/2016 -no neuro deficits -consulted Hematology -CT head no acute pathology -will continue Heparin gtt, ASA NÉSTOR on CKD: -Cr- 1.8 today, stable -Avoid nephrotoxic drugs Anemia: -Hgb 9.4, stable -will obtain iron studies -FOBT ordered CAD s/p 2 stents; -Cont daily ASA 81mg -Toprol XL 100mg daily IDDM: -Insulin Detemir 34U HS -ISS ACHS -last hgA1C 10.1 08/2017 Diabetic neuropathy: -Gabapentin 400 tid HTN: -continue Amlodipine 5mg daily -continue Toprol XL 100mg daily HLD: -Lipitor 80mg PO HS HIV: -cont HAART therapy FEN: no fluids/no changes/low na/diabetic Dispo: Telemetry monitoring Problem List - Problems (1) Acute on chronic diastolic CHF (congestive heart failure) Code(s): I50.33 - ACUTE ON CHRONIC DIASTOLIC (CONGESTIVE) HEART FAILURE (2) CHF (congestive heart failure) Code(s): I50.9 - HEART FAILURE, UNSPECIFIED Qualifiers: Heart failure type: unspecified Heart failure chronicity: unspecified Qualified Code(s): I50.9 - Heart failure, unspecified (3) DVT (deep venous thrombosis) Code(s): I82.409 - ACUTE EMBOLISM AND THOMBOS UNSP DEEP VN UNSP LOWER EXTREMITY Qualifiers: DVT location: upper extremity (4) H/O traumatic subdural hematoma Code(s): Z87.828 - PERSONAL HISTORY OF OTH (HEALED) PHYSICAL INJURY AND TRAUMA (5) NÉSTOR (acute kidney injury) Code(s): N17.9 - ACUTE KIDNEY FAILURE, UNSPECIFIED (6) Cerebrovascular accident (CVA) Code(s): I63.9 - CEREBRAL INFARCTION, UNSPECIFIED Qualifiers: CVA mechanism: unspecified Qualified Code(s): I63.9 - Cerebral infarction, unspecified (7) Hyperlipidemia Code(s): E78.5 - HYPERLIPIDEMIA, UNSPECIFIED (8) Obesity Code(s): E66.9 - OBESITY, UNSPECIFIED (9) Stented coronary artery Code(s): Z95.5 - PRESENCE OF CORONARY ANGIOPLASTY IMPLANT AND GRAFT (10) CAD (coronary artery disease) Code(s): I25.10 - ATHSCL HEART DISEASE OF [place] CORONARY ARTERY W/O ANG PCTRS (11) CKD (chronic kidney disease) Code(s): N18.9 - CHRONIC KIDNEY DISEASE, UNSPECIFIED Qualifiers: Chronic kidney disease stage: unspecified stage Qualified Code(s): N18.9 - Chronic kidney disease, unspecified (12) Diabetes Code(s): E11.9 - TYPE 2 DIABETES MELLITUS WITHOUT COMPLICATIONS (13) HIV (human immunodeficiency virus infection) Code(s): Z21 - ASYMPTOMATIC HUMAN IMMUNODEFICIENCY VIRUS INFECTION STATUS (14) HTN (hypertension) Code(s): I10 - ESSENTIAL (PRIMARY) HYPERTENSION Qualifiers: Hypertension type: unspecified Qualified Code(s): I10 - Essential (primary ) hypertension (15) CHF exacerbation Code(s): I50.9 - HEART FAILURE, UNSPECIFIED Qualifiers: Heart failure type: unspecified Qualified Code(s): I50.9 - Heart failure, unspecified Visit type - Emergency Visit Emergency Visit: Yes ED Registration Date: 08/29/17 Care time: The patient presented to the Emergency Department on the above date and was hospitalized for further evaluation of their emergent condition. - New Patient This patient is new to me today: Yes Date on this admission: 08/31/17 - Critical Care Critical Care patient: No - Discharge Referral Referred to [facility] Med P.C.: No
[2017-08-31] MEDS: ASPIRIN 81 MG CHEWABLE TABLETS PO SCH (09:52)
[2017-08-31] MEDS: CLOPIDOGREL BISULFATE 75 MG TABLET (FP) PO SCH (09:52)
[2017-08-31] MEDS: PANTOPRAZOLE 40 MG TABLET (FP) PO SCH (09:52)
[2017-08-31] MEDS: amLODIPine BESYLATE 5 MG TABLET (FP) PO SCH (09:52)
[2017-08-31] MEDS: ETRAVIRINE 100 MG TABLET PO SCH ×2 (09:53→22:58)
[2017-08-31] MEDS: DARUNAVIR ETHANOLATE 600 MG TAB PO SCH ×2 (09:54→22:37)
[2017-08-31] MEDS: RALTEGRAVIR POTASSIUM 400 MG TAB PO SCH ×2 (09:54→22:38)
[2017-08-31] MEDS: FUROSEMIDE 40 MG/4 ML INJECTABLE VIAL IVPUSH SCH (09:55)
--- NOTE | 2017-08-31 12:14 | CONSULT ---
Consult - text type - Consultation Consultation Note: Neurology HISTORY OF PRESENT ILLNESS: 66 yo F with PMHx of diastolic CHF(last ECHO-07/07), RI (s/p stent placement 2015, 12/2016), IDDM, HTN, HLD, HIV and small SDH 04/2016, recent admission for PNA (07/09) presenting with a 4 day hx of SOB, worse on exertion, worsening orthopnea and PND,( has been unable to sleep for days), weight gain (30lbs in one month) and bilateral pedal edema. Per notes, she said she has been gaining weight despite regular exercise in the gym. 4 days prior to admission she reported running out of her lasix (40mg daily) and was unable to reach her primary care physician to refill her medications and thus develop respiratory difficulty and presented to the hospital. CXR noted to have diffuse pulmonary vascular congestion with possible L pleural effusion. I was consulted regarding prior subdural hematoma as patient with reported DVT and for AC. CT head compelted and reviewed and no acute changes noted. Evidence of prior craniotomy in R frontal region. No new neurologic deficits. PAST MEDICAL HISTORY: diastolic CHF(last ECHO-07/07), RI (s/p stent placement 03/2016, 12/2016), IDDM, HTN, HLD, HIV small SDH 04/2016, Recent PNA (07/09/17) PAST SURGICAL HISTORY: Cardiac stents(03/2016, 12/2016) Bladder cysts Social History: Smoking:Denies Alcohol: Denies Drugs: Family History: Mother used a defibrillator Father had Parkinsons Allergies No Known Allergies Allergy (Verified 08/29/17 13:49) HOME MEDICATIONS: Home Medications Medication Instructions Recorded Aspirin 81 mg PO DAILY 07/07/17 Cholecalciferol (Vitamin D3) 2,000 unit PO DAILY 07/07/17 [D3-2000] Clopidogrel Bisulfate [Clopidogrel] 75 mg PO DAILY 07/07/17 Daclatasvir Dihydrochloride 60 mg PO DAILY 07/07/17 [Daklinza] Darunavir Ethanolate [Prezista -] 600 mg PO BID 07/07/17 Etravirine [Intelence -] 200 mg PO BID 07/07/17 Insulin Aspart (Niacinamide) 16 unit SQ TID 07/07/17 [Fiasp 100 Unit/ml Vial] Insulin Detemir [Levemir Flextouch] 34 unit SQ HS 07/07/17 Iron Polysac/Iron Heme/FA/B12 1 each PO ACBK 07/07/17 [Bifera Rx Tablet] Lactic Acid [Lactinol Hx] 0 gm TP ASDIR 07/07/17 Raltegravir [Isentress] 400 mg PO BID 07/07/17 Amlodipine Besylate [Norvasc -] 5 mg PO DAILY 07/08/17 Gabapentin 400 mg PO TID 07/08/17 Atorvastatin Ca [Lipitor] 80 mg PO HS #30 tablet 07/09/17 Furosemide [Lasix -] 40 mg PO DAILY #30 tablet 07/09/17 Metoprolol Succinate [Toprol XL -] 50 mg PO DAILY #30 tab.sr.24h 07/09/17 REVIEW OF SYSTEMS CONSTITUTIONAL: Absent: fever, chills, diaphoresis, generalized weakness, malaise, loss of appetite, weight change HEENT: Absent: rhinorrhea, nasal congestion, throat pain, throat swelling, difficulty swallowing, mouth swelling, ear pain, eye pain, visual changes CARDIOVASCULAR: Absent: chest pain, syncope, palpitations, irregular heart rate, lightheadedness , peripheral edema RESPIRATORY: Absent: cough, shortness of breath+, dyspnea with exertion+, orthopnea+, wheezing, stridor, hemoptysis GASTROINTESTINAL: Absent: abdominal pain, abdominal distension, nausea, vomiting, diarrhea, constipation, melena, hematochezia GENITOURINARY: Absent: dysuria, frequency, urgency, hesitancy, hematuria, flank pain, genital pain MUSCULOSKELETAL: Absent: myalgia, arthralgia, joint swelling, back pain, neck pain SKIN: Absent: rash, itching, pallor HEMATOLOGIC/IMMUNOLOGIC: Absent: easy bleeding, easy bruising, lymphadenopathy, frequent infections ENDOCRINE: Absent: unexplained weight gain+, unexplained weight loss, heat intolerance, cold intolerance NEUROLOGIC: Absent: headache, focal weakness or paresthesias, dizziness, unsteady gait, seizure, mental status changes, bladder or bowel incontinence PSYCHIATRIC: Absent: anxiety, depression, suicidal or homicidal ideation, hallucinations. PHYSICAL EXAMINATION Vital Signs Temperature 98.2 F 08/31/17 09:00 Pulse Rate 81 08/31/17 09:00 Respiratory Rate 18 08/31/17 09:00 Blood Pressure 131/65 08/31/17 09:00 O2 Sat by Pulse Oximetry (%) 95 08/31/17 09:00 GENERAL: Awake, alert, and fully oriented, in no acute respiratory distress, eating a sandwich. HEAD: Normal with no signs of trauma. 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 Moist mucous membranes. NECK: Normal range of motion, supple, no JVD. LUNGS: Dull lung bases, Breath sounds equal, basal creps bilaterally, no wheeze or rhonchi. No accessory muscle use. HEART: Tachycardic, S1 and S2 without murmur, rub or gallop. ABDOMEN: Soft, nontender, distended/obese, normoactive bowel sounds, no guarding MUSCULOSKELETAL: Normal range of motion at all joints. R big toe mild subungual swelling and hematoma. No CVA tenderness. UPPER EXTREMITIES: 2+ pulses, warm, well-perfused. LOWER EXTREMITIES: 2+ pulses, warm, well-perfused. No calf tenderness. Bilateral pitting peripheral edema, up to knee. NEUROLOGICAL: Normal speech. No facial droop, normal tone, limited participation, strength grossly intact, sensory intact, gait deferred CBCD WBC 5.1 K/mm3 (4.0-10.0) 08/31/17 06:28 RBC 3.03 M/mm3 (3.60-5.2) L 08/31/17 06:28 Hgb 9.4 GM/dL (10.7-15.3) L 08/31/17 06:28 Hct 28.0 % (32.4-45.2) L 08/31/17 06:28 MCV 92.4 fl (80-96) 08/31/17 06:28 MCHC 33.7 g/dl (32.0-36.0) 08/31/17 06:28 RDW 14.9 % (11.6-15.6) 08/31/17 06:28 Plt Count 201 K/MM3 (134-434) 08/31/17 06:28 MPV 9.5 fl (7.5-11.1) 08/31/17 06:28 CMP Sodium 142 mmol/L (136-145) 08/31/17 06:28 Potassium 3.7 mmol/L (3.5-5.1) 08/31/17 06:28 Chloride 107 mmol/L (98-107) 08/31/17 06:28 Carbon Dioxide 28 mmol/L (21-32) 08/31/17 06:28 Anion Gap 7 (8-16) L 08/31/17 06:28 BUN 24 mg/dL (7-18) H 08/31/17 06:28 Creatinine 1.8 mg/dL (0.55-1.02) H 08/31/17 06:28 Creat Clearance w eGFR 27.98 (>60) 08/31/17 06:28 Random Glucose 146 mg/dL (74-106) H 08/31/17 06:28 Calcium 8.3 mg/dL (8.5-10.1) L 08/31/17 06:28 Total Bilirubin 0.5 mg/dL (0.2-1.0) D 08/31/17 06:28 AST 17 U/L (15-37) 08/31/17 06:28 ALT 16 U/L (12-78) 08/31/17 06:28 Alkaline Phosphatase 72 U/L (45-117) 08/31/17 06:28 Total Protein 5.9 g/dl (6.4-8.2) L 08/31/17 06:28 Albumin 2.4 g/dl (3.4-5.0) L 08/31/17 06:28 CARDIAC ENZYMES Creatine Kinase 310 IU/L (26-192) H 08/30/17 06:16 Troponin I 0.02 ng/ml (0.00-0.05) 08/30/17 12:46 CT head reviewed ASSESSMENT/PLAN: 66 yo F with PMHx of diastolic CHF(last ECHO-07/07), RI (s/p stent placement 2015, 12/2016), IDDM, HTN, HLD, HIV and small SDH 04/2016, recent admission for PNA (07/09) presenting with a 4 day hx of SOB, worse on exertion, worsening orthopnea and PND,( has been unable to sleep for days), weight gain (30lbs in one month) and bilateral pedal edema. Per notes, she said she has been gaining weight despite regular exercise in the gym. 4 days prior to admission she reported running out of her lasix (40mg daily) and was unable to reach her primary care physician to refill her medications and thus develop respiratory difficulty and presented to the hospital. CXR noted to have diffuse pulmonary vascular congestion with possible L pleural effusion. I was consulted regarding prior subdural hematoma as patient with reported DVT and for AC. CT head compelted and reviewed and no acute changes noted. Evidence of prior craniotomy in R frontal region. No new neurologic deficits. Based on this, she does has baseline risk of bleed as any patient with prior hemorrhage. No active intracerebral blood. Risk/Benefit of treatment for DVT to be considered by heme/ primary team. Continue medical mgmt of CHF. Ct head if any acute changes in mental status deterioration. Monitor mental status closely.
--- NOTE | 2017-08-31 13:57 | PN ---
Progress Note (short form) - Note Progress Note: Feels OK today. No CP or SOB. No acute events overnight. Intake & Output 08/28/17 08/29/17 08/30/17 08/31/17 23:59 23:59 23:59 23:59 Intake Total 250 1160 652 Output Total 900 Balance 250 260 652 Weight 237 lb 209 lb 2 oz 231 lb Last Vital Signs Temp Pulse Resp BP Pulse Ox 98.2 F 81 18 131/65 95 08/31/17 09:00 08/31/17 09:00 08/31/17 09:00 08/31/17 09:00 08/31/17 09:00 Active Medications Amlodipine Besylate (Norvasc -) 5 mg PO DAILY [facility] Last Admin: 08/31/17 09:52 Dose: 5 mg Aspirin (Asa -) 81 mg PO DAILY [facility] Last Admin: 08/31/17 09:52 Dose: 81 mg Atorvastatin Calcium (Lipitor -) 80 mg PO HS [facility] Last Admin: 08/30/17 22:06 Dose: 80 mg Clopidogrel Bisulfate (Plavix -) 75 mg PO DAILY [facility] Last Admin: 08/31/17 09:52 Dose: 75 mg Darunavir (Prezista -) 600 mg PO BID [facility] Last Admin: 08/31/17 09:54 Dose: 600 mg Etravirine (Intelence -) 200 mg PO BID [facility] Last Admin: 08/31/17 09:53 Dose: 200 mg Furosemide (Lasix Injection -) 40 mg IVPUSH DAILY [facility] Last Admin: 08/31/17 09:55 Dose: 40 mg Gabapentin (Neurontin -) 400 mg PO TID [facility] Last Admin: 08/31/17 13:44 Dose: 400 mg Heparin Sodium (Porcine) (Heparin -) 1,000 unit IVPUSH PRN PRN PRN Reason: Heparin Last Admin: 08/31/17 01:39 Dose: 1,000 unit Heparin Sodium (Porcine) (Heparin -) 5,000 unit IVPUSH PRN PRN PRN Reason: Heparin HEPARIN SOD,PORK IN 0.45% NACL (Heparin-1/2ns 25,000 Units/500) 25,000 units in 500 mls @ 20 mls/hr IVPB TITR WILNER; 1,000 UNITS/HR PRN Reason: Protocol Last Admin: 08/31/17 09:54 Dose: 1,300 units/hr, 26 mls/hr Insulin Aspart (Novolog Vial Sliding Scale -) 1 vial SQ TIDAC [facility] PRN Reason: Protocol Last Admin: 08/31/17 12:28 Dose: 4 units Insulin Detemir (Levemir Vial) 34 units SQ HS [facility] Last Admin: 08/30/17 22:05 Dose: 34 unit Metoprolol Succinate (Toprol Xl -) 100 mg PO DAILY [facility] Last Admin: 08/31/17 09:52 Dose: 100 mg Non-Formulary Medication (Daclatasvir Dihydrochloride [Daklinza]) 60 mg PO DAILY [facility] Pantoprazole Sodium (Protonix -) 40 mg PO DAILY [facility] Last Admin: 08/31/17 09:52 Dose: 40 mg Raltegravir (Isentress -) 400 mg PO BID [facility] Last Admin: 08/31/17 09:54 Dose: 400 mg GENERAL: NAD HEAD: Normal with no signs of trauma. 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 Moist mucous membranes. NECK: Normal range of motion, supple, no JVD. LUNGS: bilateral scattered rhonchi. No accessory muscle use. HEART: Tachycardic, S1 and S2 without murmur, rub or gallop. ABDOMEN: Soft, nontender, distended/obese, normoactive bowel sounds, no guarding MUSCULOSKELETAL: Normal range of motion at all joints. R big toe mild subungual swelling and hematoma. No CVA tenderness. UPPER EXTREMITIES: 2+ pulses, warm, well-perfused. LOWER EXTREMITIES: 2+ pulses, warm, well-perfused. No calf tenderness. Bilateral pitting peripheral edema, up to knee. NEUROLOGICAL: Non-focal Laboratory Results - last 24 hr 08/30/17 08/30/17 08/30/17 16:30 16:30 22:04 WBC RBC Hgb Hct MCV MCH MCHC RDW Plt Count MPV Neutrophils % Lymphocytes % Monocytes % Eosinophils % Basophils % PT with INR INR PTT (Actin FS) 42.0 H D Sodium Potassium Chloride Carbon Dioxide Anion Gap BUN Creatinine Creat Clearance w eGFR POC Glucometer 250 330 Random Glucose Calcium Phosphorus Magnesium Total Bilirubin AST ALT Alkaline Phosphatase Total Protein Albumin 08/31/17 08/31/17 08/31/17 00:30 06:18 06:28 WBC 5.1 RBC 3.03 L Hgb 9.4 L Hct 28.0 L MCV 92.4 MCH 31.1 MCHC 33.7 RDW 14.9 Plt Count 201 MPV 9.5 Neutrophils % 57.6 Lymphocytes % 26.5 Monocytes % 9.9 Eosinophils % 5.1 H Basophils % 0.9 PT with INR INR PTT (Actin FS) 40.5 H Sodium Potassium Chloride Carbon Dioxide Anion Gap BUN Creatinine Creat Clearance w eGFR POC Glucometer 170 Random Glucose Calcium Phosphorus Magnesium Total Bilirubin AST ALT Alkaline Phosphatase Total Protein Albumin 08/31/17 08/31/17 08/31/17 06:28 06:28 12:24 WBC RBC Hgb Hct MCV MCH MCHC RDW Plt Count MPV Neutrophils % Lymphocytes % Monocytes % Eosinophils % Basophils % PT with INR 11.40 INR 1.01 PTT (Actin FS) 49.6 H Sodium 142 Potassium 3.7 Chloride 107 Carbon Dioxide 28 Anion Gap 7 L BUN 24 H Creatinine 1.8 H Creat Clearance w eGFR 27.98 POC Glucometer 227 Random Glucose 146 H Calcium 8.3 L Phosphorus 3.5 Magnesium 1.8 Total Bilirubin 0.5 D AST 17 ALT 16 Alkaline Phosphatase 72 Total Protein 5.9 L Albumin 2.4 L Problem List - Problems (1) DVT (deep venous thrombosis) Code(s): I82.409 - ACUTE EMBOLISM AND THOMBOS UNSP DEEP VN UNSP LOWER EXTREMITY (2) CHF (congestive heart failure) Code(s): I50.9 - HEART FAILURE, UNSPECIFIED Qualifiers: Heart failure type: unspecified Heart failure chronicity: unspecified Qualified Code(s): I50.9 - Heart failure, unspecified (3) Acute pulmonary edema Code(s): J81.0 - ACUTE PULMONARY EDEMA (4) Cerebrovascular accident (CVA) Code(s): I63.9 - CEREBRAL INFARCTION, UNSPECIFIED Qualifiers: CVA mechanism: unspecified Qualified Code(s): I63.9 - Cerebral infarction, unspecified (5) Hyperlipidemia Code(s): E78.5 - HYPERLIPIDEMIA, UNSPECIFIED (6) Hypertriglyceridemia Code(s): E78.1 - PURE HYPERGLYCERIDEMIA (7) Intracranial hemorrhage Code(s): I62.9 - NONTRAUMATIC INTRACRANIAL HEMORRHAGE, UNSPECIFIED (8) Stented coronary artery Code(s): Z95.5 - PRESENCE OF CORONARY ANGIOPLASTY IMPLANT AND GRAFT (9) CAD (coronary artery disease) Code(s): I25.10 - ATHSCL HEART DISEASE OF [place] CORONARY ARTERY W/O ANG PCTRS (10) CKD (chronic kidney disease) Code(s): N18.9 - CHRONIC KIDNEY DISEASE, UNSPECIFIED Qualifiers: Chronic kidney disease stage: unspecified stage Qualified Code(s): N18.9 - Chronic kidney disease, unspecified (11) Diabetes Code(s): E11.9 - TYPE 2 DIABETES MELLITUS WITHOUT COMPLICATIONS (12) HIV (human immunodeficiency virus infection) Code(s): Z21 - ASYMPTOMATIC HUMAN IMMUNODEFICIENCY VIRUS INFECTION STATUS (13) H/O traumatic subdural hematoma Code(s): Z87.828 - PERSONAL HISTORY OF OTH (HEALED) PHYSICAL INJURY AND TRAUMA (14) Pulmonary hypertension Code(s): I27.20 - PULMONARY HYPERTENSION, UNSPECIFIED IMP ACUTE ON CHRONIC DIASTOLIC CHF RLE DVT ? PE CKD PULMONARY HTN H/O SDH H/O HIV H/O CVA LIKELY OSAS ASHD S/P [place] S/P STENT PLAN AC O2 LASIX DAILY WTS F/U CHEST X-RAYS CAN POTENTIALLY OBTAIN A V/Q SCAN WHEN CHEST X-RAY IMPROVES MONITOR LYTES,RENAL FUNCTION SLEEP SCREEN DR WILDER
[2017-08-31] MEDS: ATORVASTATIN CA 80 MG TABLET (FP) PO SCH (22:37)
[2017-08-31] MEDS: INSULIN DETEMIR 100 UNITS/ML MDV SQ SCH (22:58)
[2017-09-01] MEDS: GABAPENTIN 400 MG CAPSULE (FP) PO SCH ×3 (05:56→21:30)
[2017-09-01] MEDS: INSULIN SLIDING SCALE (NOVOLOG) 1 VIAL SQ SCH ×3 (06:16→17:14)
[2017-09-01 07:40] LABS: BASO % 0.9 % (0-2.0); EOS % 5.3 % (0-4.5); HEMOGLOBIN 9.7 GM/dL (10.7-15.3); LYMPH % 33.9 % (8-40); MCH 32.2 pg (25.7-33.7); MCHC 34.6 g/dl (32.0-36.0); MEAN CELL VOLUME 93.1 fl (80-96); MEAN PLT VOLUME 9.3 fl (7.5-11.1); MONO % 8.8 % (3.8-10.2); NEUT % 51.1 % (42.8-82.8); PLATELET COUNT 202 K/MM3 (134-434); RBC 3.01 M/mm3 (3.60-5.2); RDW 14.9 % (11.6-15.6); WHITE BLOOD COUNT 5.2 K/mm3 (4.0-10.0)
[2017-09-01 07:46] LABS: CHLORIDE 104 mmol/L (98-107); POTASSIUM 3.5 mmol/L (3.5-5.1); SODIUM 141 mmol/L (136-145)
[2017-09-01 07:55] LABS: ALBUMIN 2.4 g/dl (3.4-5.0); ALK PHOS 75 U/L (45-117); ANION GAP 7 (8-16); BILIRUBIN,TOTAL 0.3 mg/dL (0.2-1.0); BLOOD UREA NITROGEN 27 mg/dL (7-18); CALCIUM 8.1 mg/dL (8.5-10.1); CO2 30 mmol/L (21-32); CREATININE 2.1 mg/dL (0.55-1.02); GLUCOSE,RANDOM 139 mg/dL (74-106); MAGNESIUM 1.8 mg/dL (1.8-2.4); PHOSPHOROUS 3.6 mg/dL (2.5-4.9); SGOT/AST 16 U/L (15-37); SGPT/ALT 15 U/L (12-78); TOT PROT 6.1 g/dl (6.4-8.2)
--- NOTE | 2017-09-01 08:13 | PN ---
Progress Note, Physician History of Present Illness: Patient is a 66 year old black female with a significant past medical history of diastolic CHF, [place] (s/p stent placement 03/2016; additional stent about 3 months ago at [place], [place]), IDDM, HTN, HLD, obesity, HIV and small SDH 2016, who presents to the ED with complaints of difficulty breathing that began 5 days ago. Patient reports visiting her friend in [place] when she ran out of her medication 5 days go. She reports experiencing gradual shortness of breath over the 5 days until she could no longer bear it. Patient reports experiencing chronic cough as well as increased bilateral leg edema since taking her medication. Denies chest pain, Nausea, vomiting. Denies contact with sick individual, out of state travelling. Denies any other symptoms. Sedentary lifestyle. Allergies: None Social history: No smoking. No alcohol. No illicit drugs. Surgical history: coronary stents 2015 and 2017 - Current Medication List Current Medications: Active Medications Amlodipine Besylate (Norvasc -) 5 mg PO DAILY [facility] Last Admin: 08/31/17 09:52 Dose: 5 mg Aspirin (Asa -) 81 mg PO DAILY [facility] Last Admin: 08/31/17 09:52 Dose: 81 mg Atorvastatin Calcium (Lipitor -) 80 mg PO HS [facility] Last Admin: 08/31/17 22:37 Dose: 80 mg Clopidogrel Bisulfate (Plavix -) 75 mg PO DAILY [facility] Last Admin: 08/31/17 09:52 Dose: 75 mg Darunavir (Prezista -) 600 mg PO BID [facility] Last Admin: 08/31/17 22:37 Dose: 600 mg Etravirine (Intelence -) 200 mg PO BID [facility] Last Admin: 08/31/17 22:58 Dose: 200 mg Gabapentin (Neurontin -) 400 mg PO TID [facility] Last Admin: 09/01/17 05:56 Dose: 400 mg Heparin Sodium (Porcine) (Heparin -) 1,000 unit IVPUSH PRN PRN PRN Reason: Heparin Last Admin: 08/31/17 01:39 Dose: 1,000 unit Heparin Sodium (Porcine) (Heparin -) 5,000 unit IVPUSH PRN PRN PRN Reason: Heparin HEPARIN SOD,PORK IN 0.45% NACL (Heparin-1/2ns 25,000 Units/500) 25,000 units in 500 mls @ 20 mls/hr IVPB TITR WILNER; 1,000 UNITS/HR PRN Reason: Protocol Last Admin: 08/31/17 16:51 Dose: 1,400 units/hr, 28 mls/hr Insulin Aspart (Novolog Vial Sliding Scale -) 1 vial SQ TIDAC [facility] PRN Reason: Protocol Last Admin: 09/01/17 06:16 Dose: Not Given Insulin Detemir (Levemir Vial) 34 units SQ HS [facility] Last Admin: 08/31/17 22:58 Dose: 34 unit Metoprolol Succinate (Toprol Xl -) 100 mg PO DAILY [facility] Last Admin: 08/31/17 09:52 Dose: 100 mg Non-Formulary Medication (Daclatasvir Dihydrochloride [Daklinza]) 60 mg PO DAILY [facility] Pantoprazole Sodium (Protonix -) 40 mg PO DAILY [facility] Last Admin: 08/31/17 09:52 Dose: 40 mg Raltegravir (Isentress -) 400 mg PO BID [facility] Last Admin: 08/31/17 22:38 Dose: 400 mg - Objective Vital Signs: Vital Signs Temperature 98 F 09/01/17 06:00 Pulse Rate 80 09/01/17 06:00 Respiratory Rate 18 09/01/17 06:00 Blood Pressure 139/79 09/01/17 06:00 O2 Sat by Pulse Oximetry (%) 96 08/31/17 21:00 Eyes: Yes: WNL, Conjunctiva Clear, EOM Intact HENT: Yes: WNL, Atraumatic, Normocephalic Neck: Yes: WNL, Supple, Trachea Midline Cardiovascular: Yes: WNL, Regular Rate and Rhythm Respiratory: Yes: WNL, Regular, CTA Bilaterally Gastrointestinal: Yes: WNL, Normal Bowel Sounds Genitourinary: Yes: WNL Musculoskeletal: Yes: WNL Extremities: Yes: WNL Edema: No Integumentary: Yes: WNL Neurological: Yes: WNL, Alert, Oriented ...Motor Strength: WNL Psychiatric: Yes: WNL Labs: CBC, BMP 09/01/17 06:25 09/01/17 06:25 INR, PTT INR 1.01 (0.82-1.09) 08/31/17 06:28 Assessment/Plan Problems (1) HTN (hypertension) Assessment/Plan: On metorpolol succinate (will increase dose to 100 mg daily); on amlodipine and furosemide. If renal function improves, add ACEI or ARB for HTN and renal protection with DM (and may stop amlodipine then if BP falls too precipitously). Code(s): I10 - ESSENTIAL (PRIMARY) HYPERTENSION Qualifiers: Hypertension type: unspecified Qualified Code(s): I10 - Essential (primary ) hypertension (2) Acute on chronic systolic and diastolic heart failure, NYHA class 2 Assessment/Plan: Increase metoprolol. ?Noncompaction syndrome (LV); f/u cardiac records, Consider cardiac MRI as oupatient, if not recently done. Code(s): I50.43 - ACUTE ON CHRONIC COMBINED SYSTOLIC AND DIASTOLIC HRT FAIL (3) DVT (deep venous thrombosis) Assessment/Plan: DVT of lower extremity. Unable to do CTA to r/o PE due to renal dysfunction. On anticoagulants. Code(s): I82.409 - ACUTE EMBOLISM AND THOMBOS UNSP DEEP VN UNSP LOWER EXTREMITY Qualifiers: DVT location: upper extremity (4) Gout Code(s): M10.9 - GOUT, UNSPECIFIED (5) Obesity Code(s): E66.9 - OBESITY, UNSPECIFIED (6) Sleep apnea Code(s): G47.30 - SLEEP APNEA, UNSPECIFIED (7) CAD (coronary artery disease) Assessment/Plan: s/p [place]-->stents (the latest was about 3 moths ago at [facility]) F/u records. 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 Pt is presently already on anticoagulant for DVT. She is also being treated for systollic/diastolic CHF. Code(s): I42.4 - ENDOCARDIAL FIBROELASTOSIS
[2017-09-01] MEDS: HEPARIN SOD,PORK IN 0.45% NACL 25,000 UNITS/500 ML INFUS.BAG IVPB SCH ×3 (08:43→15:16)
[2017-09-01] MEDS: PANTOPRAZOLE 40 MG TABLET (FP) PO SCH (09:34)
[2017-09-01] MEDS: amLODIPine BESYLATE 5 MG TABLET (FP) PO SCH (09:34)
[2017-09-01] MEDS: ETRAVIRINE 100 MG TABLET PO SCH ×2 (09:34→21:29)
[2017-09-01] MEDS: CLOPIDOGREL BISULFATE 75 MG TABLET (FP) PO SCH (09:34)
[2017-09-01] MEDS: RALTEGRAVIR POTASSIUM 400 MG TAB PO SCH ×2 (09:35→21:28)
[2017-09-01] MEDS: DARUNAVIR ETHANOLATE 600 MG TAB PO SCH ×2 (09:35→21:29)
[2017-09-01] MEDS: ASPIRIN 81 MG CHEWABLE TABLETS PO SCH (09:35)
[2017-09-01 09:43] LABS: URINE APPEARANCE CLEAR; URINE BILIRUBIN NEGATIVE (<2.0 mg/dL); URINE BLOOD NEGATIVE (NEGATIVE); URINE COLOR LTYELLOW; URINE GLUCOSE (UA) 1+ (NEGATIVE); URINE KETONE NEGATIVE (NEGATIVE); URINE NITRITE NEGATIVE (NEGATIVE); URINE UROBILINOGEN NEGATIVE mg/dL (0.2-1.0)
[2017-09-01 09:46] LABS: URINE LEUK ESTERASE 1+ (NEGATIVE); URINE PROTEIN 3+ (NEGATIVE)
[2017-09-01 09:47] LABS: EPI CELLS RARE /HPF (FEW); URINE HYALINE CAST 1 /lpf; URINE MUCUS RARE
--- NOTE | 2017-09-01 10:22 | PN ---
Progress Note (short form) - Note Progress Note: Progress Note: Patient seen and examined No complaints Her leg swelling is better Vital Signs Period Temp Pulse Resp BP Sys/Satllings Pulse Ox Last 24 Hr 97.9 F-98.1 F 80-85 18-20 128-154/66-94 96 AFVSS HEENT: JANETH, EOM Intact Ext:edema R>L Skin: No rashes, Integument intact CBC, BMP 09/01/17 06:25 09/01/17 06:25 A/P Patient is a 66 year old black female with a significant past medical history of diastolic CHF, [place] (s/p stent placement 03/2016; additional stent about 3 months ago at [place], [place]), IDDM, HTN, HLD, CKD<obesity, HIV and small SDH after a fall, ?gout, who presents with complaints of difficulty breathing that began 5 days ago. Patient reports visiting her friend in [place] when she ran out of her medication 5 days go. She reports experiencing gradual shortness of breath over the 5 days until she could no longer bear it. Patient reports experiencing chronic cough as well as increased leg edema Rt. > Lt. She recently traveled to [place] 3 weeks ago and returned 08/27 She has noticed increased leg edema while in [place] Sedentary lifestyle. c/o rt. toe pain RLE poplital DVT-- ?? provoked from recent travel to [place] On heparin drip, difficult to get it therapeutic, but this si being titrated according to the protocol i would continue with current titration as we certainly dont want to over anticoagulate. SDH- stable currently continuing with ASA and plavix
--- NOTE | 2017-09-01 13:22 | PN ---
Progress Note (short form) - Note Progress Note: Feels OK. No CP or SOB. Leg swelling is better. No acute events overnight. Intake & Output 08/29/17 08/30/17 08/31/17 09/01/17 23:59 23:59 23:59 23:59 Intake Total 250 1160 1402 756 Output Total 957 668 5281 Balance 226 888 1570 -544 Weight 237 lb 209 lb 2 oz 231 lb 231 lb 12.8 oz Last Vital Signs Temp Pulse Resp BP Pulse Ox 98 F 80 18 139/79 96 09/01/17 06:00 09/01/17 06:00 09/01/17 10:00 09/01/17 06:00 09/01/17 09:00 Active Medications Amlodipine Besylate (Norvasc -) 5 mg PO DAILY [facility] Last Admin: 09/01/17 09:34 Dose: 5 mg Aspirin (Asa -) 81 mg PO DAILY [facility] Last Admin: 09/01/17 09:35 Dose: 81 mg Atorvastatin Calcium (Lipitor -) 80 mg PO HS [facility] Last Admin: 08/31/17 22:37 Dose: 80 mg Clopidogrel Bisulfate (Plavix -) 75 mg PO DAILY [facility] Last Admin: 09/01/17 09:34 Dose: 75 mg Darunavir (Prezista -) 600 mg PO BID [facility] Last Admin: 09/01/17 09:35 Dose: 600 mg Etravirine (Intelence -) 200 mg PO BID [facility] Last Admin: 09/01/17 09:34 Dose: 200 mg Gabapentin (Neurontin -) 400 mg PO TID [facility] Last Admin: 09/01/17 05:56 Dose: 400 mg Heparin Sodium (Porcine) (Heparin -) 1,000 unit IVPUSH PRN PRN PRN Reason: Heparin Last Admin: 08/31/17 08:44 Dose: 1,000 unit Heparin Sodium (Porcine) (Heparin -) 5,000 unit IVPUSH PRN PRN PRN Reason: Heparin Last Admin: 09/01/17 08:44 Dose: 5,000 unit HEPARIN SOD,PORK IN 0.45% NACL (Heparin-1/2ns 25,000 Units/500) 25,000 units in 500 mls @ 20 mls/hr IVPB TITR WILNER; 1,000 UNITS/HR PRN Reason: Protocol Last Admin: 09/01/17 11:38 Dose: 1,550 units/hr, 31 mls/hr Insulin Aspart (Novolog Vial Sliding Scale -) 1 vial SQ TIDAC [facility] PRN Reason: Protocol Last Admin: 09/01/17 11:38 Dose: 4 units Insulin Detemir (Levemir Vial) 34 units SQ HS [facility] Last Admin: 08/31/17 22:58 Dose: 34 unit Metoprolol Succinate (Toprol Xl -) 100 mg PO DAILY [facility] Last Admin: 09/01/17 09:34 Dose: 100 mg Non-Formulary Medication (Daclatasvir Dihydrochloride [Daklinza]) 60 mg PO DAILY [facility] Pantoprazole Sodium (Protonix -) 40 mg PO DAILY [facility] Last Admin: 09/01/17 09:34 Dose: 40 mg Raltegravir (Isentress -) 400 mg PO BID [facility] Last Admin: 09/01/17 09:35 Dose: 400 mg GENERAL: NAD HEAD: Normal with no signs of trauma. 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 Moist mucous membranes. NECK: Normal range of motion, supple, no JVD. LUNGS: bilateral scattered rhonchi. No accessory muscle use. HEART: Tachycardic, S1 and S2 without murmur, rub or gallop. ABDOMEN: Soft, nontender, distended/obese, normoactive bowel sounds, no guarding MUSCULOSKELETAL: Normal range of motion at all joints. R big toe mild subungual swelling and hematoma. No CVA tenderness. UPPER EXTREMITIES: 2+ pulses, warm, well-perfused. LOWER EXTREMITIES: 2+ pulses, warm, well-perfused. No calf tenderness. Improving edema. NEUROLOGICAL: Non-focal Laboratory Results - last 24 hr 08/31/17 08/31/17 08/31/17 15:00 17:01 22:46 WBC RBC Hgb Hct MCV MCH MCHC RDW Plt Count MPV Neutrophils % Lymphocytes % Monocytes % Eosinophils % Basophils % PTT (Actin FS) 47.7 H Sodium Potassium Chloride Carbon Dioxide Anion Gap BUN Creatinine Creat Clearance w eGFR POC Glucometer 276 220 Random Glucose Calcium Phosphorus Magnesium Ferritin Total Bilirubin AST ALT Alkaline Phosphatase Total Protein Albumin Vitamin B12 TSH Free T4 Urine Color Urine Appearance Urine pH Ur Specific [place] Urine Protein Urine Glucose (UA) Urine Ketones Urine Blood Urine Nitrite Urine Bilirubin Urine Urobilinogen Ur Leukocyte Esterase Urine WBC (Auto) Urine RBC (Auto) Ur Epithelial Cells Hyaline Casts Urine Mucus 09/01/17 09/01/17 09/01/17 05:55 06:25 06:25 WBC RBC Hgb Hct MCV MCH MCHC RDW Plt Count MPV Neutrophils % Lymphocytes % Monocytes % Eosinophils % Basophils % PTT (Actin FS) 30.0 D Sodium 141 Potassium 3.5 Chloride 104 Carbon Dioxide 30 Anion Gap 7 L BUN 27 H Creatinine 2.1 H Creat Clearance w eGFR 23.42 POC Glucometer 153 Random Glucose 139 H Calcium 8.1 L Phosphorus 3.6 Magnesium 1.8 Ferritin 109.480 Total Bilirubin 0.3 D AST 16 ALT 15 Alkaline Phosphatase 75 Total Protein 6.1 L Albumin 2.4 L Vitamin B12 821 TSH 2.38 Free T4 1.08 Urine Color Urine Appearance Urine pH Ur Specific [place] Urine Protein Urine Glucose (UA) Urine Ketones Urine Blood Urine Nitrite Urine Bilirubin Urine Urobilinogen Ur Leukocyte Esterase Urine WBC (Auto) Urine RBC (Auto) Ur Epithelial Cells Hyaline Casts Urine Mucus 09/01/17 09/01/17 09/01/17 06:25 09:35 11:36 WBC 5.2 RBC 3.01 L Hgb 9.7 L Hct 28.0 L MCV 93.1 MCH 32.2 MCHC 34.6 RDW 14.9 Plt Count 202 MPV 9.3 Neutrophils % 51.1 Lymphocytes % 33.9 D Monocytes % 8.8 Eosinophils % 5.3 H Basophils % 0.9 PTT (Actin FS) Sodium Potassium Chloride Carbon Dioxide Anion Gap BUN Creatinine Creat Clearance w eGFR POC Glucometer 216 Random Glucose Calcium Phosphorus Magnesium Ferritin Total Bilirubin AST ALT Alkaline Phosphatase Total Protein Albumin Vitamin B12 TSH Free T4 Urine Color Ltyellow Urine Appearance Clear Urine pH 6.0 Ur Specific [place] 1.010 Urine Protein 3+ H Urine Glucose (UA) 1+ H D Urine Ketones Negative Urine Blood Negative Urine Nitrite Negative Urine Bilirubin Negative Urine Urobilinogen Negative Ur Leukocyte Esterase 1+ H Urine WBC (Auto) 20 Urine RBC (Auto) 2 Ur Epithelial Cells Rare Hyaline Casts 1 Urine Mucus Rare Problem List - Problems (1) DVT (deep venous thrombosis) Code(s): I82.409 - ACUTE EMBOLISM AND [place]BOS UNSP DEEP VN UNSP LOWER EXTREMITY (2) CHF (congestive heart failure) Code(s): I50.9 - HEART FAILURE, UNSPECIFIED Qualifiers: Heart failure type: unspecified Heart failure chronicity: unspecified Qualified Code(s): I50.9 - Heart failure, unspecified (3) Acute pulmonary edema Code(s): J81.0 - ACUTE PULMONARY EDEMA (4) Cerebrovascular accident (CVA) Code(s): I63.9 - CEREBRAL INFARCTION, UNSPECIFIED Qualifiers: CVA mechanism: unspecified Qualified Code(s): I63.9 - Cerebral infarction, unspecified (5) Hyperlipidemia Code(s): E78.5 - HYPERLIPIDEMIA, UNSPECIFIED (6) Hypertriglyceridemia Code(s): E78.1 - PURE HYPERGLYCERIDEMIA (7) Intracranial hemorrhage Code(s): I62.9 - NONTRAUMATIC INTRACRANIAL HEMORRHAGE, UNSPECIFIED (8) Stented coronary artery Code(s): Z95.5 - PRESENCE OF CORONARY ANGIOPLASTY IMPLANT AND GRAFT (9) CAD (coronary artery disease) Code(s): I25.10 - ATHSCL HEART DISEASE OF [place] CORONARY ARTERY W/O ANG PCTRS (10) CKD (chronic kidney disease) Code(s): N18.9 - CHRONIC KIDNEY DISEASE, UNSPECIFIED Qualifiers: Chronic kidney disease stage: unspecified stage Qualified Code(s): N18.9 - Chronic kidney disease, unspecified (11) Diabetes Code(s): E11.9 - TYPE 2 DIABETES MELLITUS WITHOUT COMPLICATIONS (12) HIV (human immunodeficiency virus infection) Code(s): Z21 - ASYMPTOMATIC HUMAN IMMUNODEFICIENCY VIRUS INFECTION STATUS (13) H/O traumatic subdural hematoma Code(s): Z87.828 - PERSONAL HISTORY OF OTH (HEALED) PHYSICAL INJURY AND TRAUMA (14) Pulmonary hypertension Code(s): I27.20 - PULMONARY HYPERTENSION, UNSPECIFIED IMP ACUTE ON CHRONIC DIASTOLIC CHF RLE DVT ? PE CKD PULMONARY HTN H/O SDH H/O HIV H/O CVA LIKELY OSAS ASHD S/P [place] S/P STENT PLAN AC O2 LASIX DAILY WTS CAN POTENTIALLY OBTAIN A V/Q SCAN WHEN CHEST X-RAY IMPROVES MONITOR LYTES,RENAL FUNCTION SLEEP SCREEN DR WILDER
--- NOTE | 2017-09-01 13:46 | PN ---
Teaching Attending Note Name of Resident: Pamela Angeles SUBJECTIVE: Patient seen and examined. breathing improved, no new complaints. OBJECTIVE: Vital Signs Period Temp Pulse Resp BP Sys/Stallings Pulse Ox Last 24 Hr 97.9 F-98.1 F 80-85 18-20 128-154/66-94 96-96 Intake & Output 08/29/17 08/30/17 08/31/17 09/01/17 23:59 23:59 23:59 23:59 Intake Total 250 1160 1402 756 Output Total 080 896 2982 Balance 869 068 3075 -544 Weight 237 lb 209 lb 2 oz 231 lb 231 lb 12.8 oz general: sitting in chair in no acute distress Chest: good air entry bilaterally, no rales or wheezing appreciated Abdomen:soft, obese, NT Extremities: bilateral LE edema, Right >L unchanged, positive DP pulses Home Medication List Medication Instructions Recorded Confirmed Type Aspirin 81 mg PO DAILY 07/07/17 07/07/17 History Cholecalciferol (Vitamin D3) 2,000 unit PO DAILY 07/07/17 07/07/17 History [D3-2000] Clopidogrel Bisulfate [Clopidogrel] 75 mg PO DAILY 07/07/17 08/30/17 History Daclatasvir Dihydrochloride 60 mg PO DAILY 07/07/17 07/07/17 History [Daklinza] Darunavir Ethanolate [Prezista -] 600 mg PO BID 07/07/17 08/30/17 History Etravirine [Intelence -] 200 mg PO BID 07/07/17 08/30/17 History Insulin Aspart (Niacinamide) 16 unit SQ TID 07/07/17 07/07/17 History [Fiasp 100 Unit/ml Vial] Insulin Detemir [Levemir Flextouch] 34 unit SQ HS 07/07/17 07/07/17 History Iron Polysac/Iron Heme/FA/B12 1 each PO ACBK 07/07/17 07/08/17 History [Bifera Rx Tablet] Lactic Acid [Lactinol Hx] 0 gm TP ASDIR 07/07/17 07/07/17 History Raltegravir [Isentress] 400 mg PO BID 07/07/17 08/30/17 History Amlodipine Besylate [Norvasc -] 5 mg PO DAILY 07/08/17 08/30/17 History Gabapentin 400 mg PO TID 07/08/17 07/08/17 History Metoprolol Tartrate 1 tab PO BID 08/30/17 08/30/17 History Ritonavir [Norvir] 100 mg PO BID 08/30/17 08/30/17 History Active Medications Generic Name Dose Route Start Last Admin Trade Name Freq PRN Reason Stop Dose Admin Amlodipine Besylate 5 mg 08/30/17 10:00 09/01/17 09:34 Norvasc - PO 5 mg DAILY [facility] Administration Aspirin 81 mg 08/30/17 10:00 09/01/17 09:35 Asa - PO 81 mg DAILY [facility] Administration Atorvastatin Calcium 80 mg 08/29/17 22:00 08/31/17 22:37 Lipitor - PO 80 mg HS [facility] Administration Clopidogrel Bisulfate 75 mg 08/30/17 10:00 09/01/17 09:34 Plavix - PO 75 mg DAILY [facility] Administration Darunavir 600 mg 08/29/17 22:00 09/01/17 09:35 Prezista - PO 600 mg BID [facility] Administration Etravirine 200 mg 08/29/17 22:00 09/01/17 09:34 Intelence - PO 200 mg BID [facility] Administration Gabapentin 400 mg 08/29/17 22:00 09/01/17 05:56 Neurontin - PO 400 mg TID [facility] Administration Heparin Sodium (Porcine) 1,000 unit 08/30/17 09:03 08/31/17 08:44 Heparin - IVPUSH 1,000 unit PRN PRN Administration Heparin Heparin Sodium (Porcine) 5,000 unit 08/30/17 09:03 09/01/17 08:44 Heparin - IVPUSH 5,000 unit PRN PRN Administration Heparin HEPARIN SOD,PORK IN 0.45% NACL 25,000 units in 500 mls @ 20 mls/hr 08/30/17 10 :00 09/01/17 11:38 Heparin-1/2ns 25,000 Units/500 IVPB 1,550 units/hr TITR [facility] 31 mls/hr Protocol Administration 1,000 UNITS/HR Insulin Aspart 1 vial 08/31/17 09:18 09/01/17 11:38 Novolog Vial Sliding Scale - SQ 4 units TIDAC [facility] Administration Protocol Insulin Detemir 34 units 08/29/17 22:00 08/31/17 22:58 Levemir Vial SQ 34 unit HS [facility] Administration Metoprolol Succinate 100 mg 08/31/17 10:00 09/01/17 09:34 Toprol Xl - PO 100 mg DAILY [facility] Administration Non-Formulary Medication 60 mg 08/30/17 10:00 Daclatasvir Dihydrochloride [Daklinza] PO DAILY [facility] Pantoprazole Sodium 40 mg 08/30/17 16:45 09/01/17 09:34 Protonix - PO 40 mg DAILY [facility] Administration Raltegravir 400 mg 08/29/17 22:00 09/01/17 09:35 Isentress - PO 400 mg BID [facility] Administration Laboratory Results - last 24 hr 08/31/17 08/31/17 08/31/17 15:00 17:01 22:46 WBC RBC Hgb Hct MCV MCH MCHC RDW Plt Count MPV Neutrophils % Lymphocytes % Monocytes % Eosinophils % Basophils % PTT (Actin FS) 47.7 H Sodium Potassium Chloride Carbon Dioxide Anion Gap BUN Creatinine Creat Clearance w eGFR POC Glucometer 276 220 Random Glucose Calcium Phosphorus Magnesium Ferritin Total Bilirubin AST ALT Alkaline Phosphatase Total Protein Albumin Vitamin B12 TSH Free T4 Urine Color Urine Appearance Urine pH Ur Specific [place] Urine Protein Urine Glucose (UA) Urine Ketones Urine Blood Urine Nitrite Urine Bilirubin Urine Urobilinogen Ur Leukocyte Esterase Urine WBC (Auto) Urine RBC (Auto) Ur Epithelial Cells Hyaline Casts Urine Mucus 09/01/17 09/01/17 09/01/17 05:55 06:25 06:25 WBC RBC Hgb Hct MCV MCH MCHC RDW Plt Count MPV Neutrophils % Lymphocytes % Monocytes % Eosinophils % Basophils % PTT (Actin FS) 30.0 D Sodium 141 Potassium 3.5 Chloride 104 Carbon Dioxide 30 Anion Gap 7 L BUN 27 H Creatinine 2.1 H Creat Clearance w eGFR 23.42 POC Glucometer 153 Random Glucose 139 H Calcium 8.1 L Phosphorus 3.6 Magnesium 1.8 Ferritin 109.480 Total Bilirubin 0.3 D AST 16 ALT 15 Alkaline Phosphatase 75 Total Protein 6.1 L Albumin 2.4 L Vitamin B12 821 TSH 2.38 Free T4 1.08 Urine Color Urine Appearance Urine pH Ur Specific [place] Urine Protein Urine Glucose (UA) Urine Ketones Urine Blood Urine Nitrite Urine Bilirubin Urine Urobilinogen Ur Leukocyte Esterase Urine WBC (Auto) Urine RBC (Auto) Ur Epithelial Cells Hyaline Casts Urine Mucus 0509/01/17 09/01/17 06:25 09:35 11:36 WBC 5.2 RBC 3.01 L Hgb 9.7 L Hct 28.0 L MCV 93.1 MCH 32.2 MCHC 34.6 RDW 14.9 Plt Count 202 MPV 9.3 Neutrophils % 51.1 Lymphocytes % 33.9 D Monocytes % 8.8 Eosinophils % 5.3 H Basophils % 0.9 PTT (Actin FS) Sodium Potassium Chloride Carbon Dioxide Anion Gap BUN Creatinine Creat Clearance w eGFR POC Glucometer 216 Random Glucose Calcium Phosphorus Magnesium Ferritin Total Bilirubin AST ALT Alkaline Phosphatase Total Protein Albumin Vitamin B12 TSH Free T4 Urine Color Ltyellow Urine Appearance Clear Urine pH 6.0 Ur Specific [place] 1.010 Urine Protein 3+ H Urine Glucose (UA) 1+ H D Urine Ketones Negative Urine Blood Negative Urine Nitrite Negative Urine Bilirubin Negative Urine Urobilinogen Negative Ur Leukocyte Esterase 1+ H Urine WBC (Auto) 20 Urine RBC (Auto) 2 Ur Epithelial Cells Rare Hyaline Casts 1 Urine Mucus Rare ASSESSMENT AND PLAN: 66 yof with acute on chronic diastolic HF exacerbation in the setting of not taking her lasix and right toe pain and swelling -Dyspnea, acute on chronic diastolic heart failure exacerbation, ?PE given RLE DVT -RLE near occlusive Popliteal vein DVT -NÉSTOR CKD stage III -CAD s/p PCI in 03/2016 and RCA x 2 in 12/2016 -Hyperlipidemia -Obesity -IDDM, poorly controlled -HTN -Mitral regurgitation -?noncompaction syndrome -HIV on HAART -h/o Fronto-parietal CVA Plan: Continue heparin drip. Pulmonary input noted, V/Q scan on Saturday as lungs improve with diuresis. Repeat CXR. Hematology input noted, CT brain neg for concerns. Follow up iron panel/FOBT. Cr rising, lungs clear, hold lasix today. Bladder scan x 1 and check bladder/ renal US. Monitor renal function. Strict I/Os and daily weights, renal consult if fails to improve in 24 hours. ACS ruled out, 2D echo results reviewed. Outpatient cardiac MRI. Foot xray noted, some swelling, no acute concerns. Lipid panel noted, Suspect component of non compliance. Continue statin. Continue ASA/plavix/Toprol XL, statin, Continue levemir and ISS. Increase ISS to start > 150. Resume novolog premeal base don blood sugar readings.A1c 10.1. Continue HAART. DVTPPx full dose heparin Dispo pending clinical improvement. Will need PT eval and case management input once clinically improved. Plan discussed with patient in detail and all questions answered.
[2017-09-01] MEDS: INSULIN DETEMIR 100 UNITS/ML MDV SQ SCH (21:30)
[2017-09-01] MEDS: ATORVASTATIN CA 80 MG TABLET (FP) PO SCH (21:30)
[2017-09-02 06:06] LABS: SERUM IRON SATURATION 30 % (15-55); TOTAL IRON BINDING CAPACITY 186 ug/dL (250-450); UIBC 130 ug/dL (118-369)
[2017-09-02 06:09] LABS: BASO % 0.9 % (0-2.0); EOS % 4.4 % (0-4.5); HEMATOCRIT 28.3 % (32.4-45.2); HEMOGLOBIN 9.7 GM/dL (10.7-15.3); LYMPH % 26.3 % (8-40); MCHC 34.4 g/dl (32.0-36.0); MEAN CELL VOLUME 93.1 fl (80-96); MEAN PLT VOLUME 9.3 fl (7.5-11.1); MONO % 9.4 % (3.8-10.2); PLATELET COUNT 188 K/MM3 (134-434); RBC 3.03 M/mm3 (3.60-5.2); RDW 14.9 % (11.6-15.6); WHITE BLOOD COUNT 5.4 K/mm3 (4.0-10.0)
[2017-09-02] MEDS: GABAPENTIN 400 MG CAPSULE (FP) PO SCH ×3 (06:33→21:14)
[2017-09-02] MEDS: INSULIN SLIDING SCALE (NOVOLOG) 1 VIAL SQ SCH ×3 (06:36→17:16)
--- NOTE | 2017-09-02 07:09 | PN ---
Physical Exam: SUBJECTIVE: Patient seen and examined. Nonew c/o overnight. PTT now therapeutic. Pt says she does not want anymore tests, blood draws can be done but wants to go home. OBJECTIVE: Vital Signs Period Temp Pulse Resp BP Sys/Stallings Pulse Ox Last 24 Hr 97.8 F-98.4 F 84-90 18-20 133-159/71-91 94-96 Vital Signs Temp 98.2 F 09/02/17 14:36 Pulse 90 09/02/17 14:36 Resp 18 09/02/17 14:36 BP 141/89 09/02/17 14:36 Pulse Ox 94 L 09/02/17 09:00 Intake & Output 09/01/17 09/02/17 09/02/17 23:59 11:59 23:59 Intake Total 780 540 404 Output Total 950 950 300 Balance -170 -410 104 Weight 105.415 kg Intake: IV 240 360 224 HEPARIN-1/2NS 25,000 240 360 224 UNITS/500 25,000 units In 500 ml @ 1,000 UNITS/HR 20 mls/hr IVPB TITR [facility] Rx#:[id number] Oral 540 180 180 Output: Urine 950 950 300 Void 950 950 300 Other: Voiding Method Bedside Commode Bedside Commode Bowel Movement No No No Weight Measurement Method Standing Scale GENERAL: The patient is awake, alert, and fully oriented, in no acute distress. ENT: moist mucous membranes. NECK: supple. LUNGS: Breath sounds equal, clear to auscultation bilaterally, no wheezes, no crackles HEART: Regular rate and rhythm, S1, S2 ABDOMEN: Soft, nontender, nondistended, normoactive bowel sounds EXTREMITIES: 2+ pulses, warm, well-perfused, bilateral pedal edema, R>L NEUROLOGICAL: Normal speech, no facial droop, muscle strength 5/5 globally Laboratory Results - last 24 hr 09/01/17 09/01/17 09/01/17 06:25 06:25 06:25 WBC RBC Hgb Hct MCV MCH MCHC RDW Plt Count MPV Neutrophils % Lymphocytes % Monocytes % Eosinophils % Basophils % PTT (Actin FS) 30.0 D Sodium 141 Potassium 3.5 Chloride 104 Carbon Dioxide 30 Anion Gap 7 L BUN 27 H Creatinine 2.1 H Creat Clearance w eGFR 23.42 POC Glucometer Random Glucose 139 H Calcium 8.1 L Phosphorus 3.6 Magnesium 1.8 Iron 56 TIBC 186 L Iron Saturation 30 Ferritin 109.480 Total Bilirubin 0.3 D AST 16 ALT 15 Alkaline Phosphatase 75 Total Protein 6.1 L Albumin 2.4 L Vitamin B12 821 TSH 2.38 Free T4 1.08 Urine Color Urine Appearance Urine pH Ur Specific [place] Urine Protein Urine Glucose (UA) Urine Ketones Urine Blood Urine Nitrite Urine Bilirubin Urine Urobilinogen Ur Leukocyte Esterase Urine WBC (Auto) Urine RBC (Auto) Ur Epithelial Cells Hyaline Casts Urine Mucus 09/01/17 09/01/17 09/01/17 06:25 09:35 11:36 WBC 5.2 RBC 3.01 L Hgb 9.7 L Hct 28.0 L MCV 93.1 MCH 32.2 MCHC 34.6 RDW 14.9 Plt Count 202 MPV 9.3 Neutrophils % 51.1 Lymphocytes % 33.9 D Monocytes % 8.8 Eosinophils % 5.3 H Basophils % 0.9 PTT (Actin FS) Sodium Potassium Chloride Carbon Dioxide Anion Gap BUN Creatinine Creat Clearance w eGFR POC Glucometer 216 Random Glucose Calcium Phosphorus Magnesium Iron TIBC Iron Saturation Ferritin Total Bilirubin AST ALT Alkaline Phosphatase Total Protein Albumin Vitamin B12 TSH Free T4 Urine Color Ltyellow Urine Appearance Clear Urine pH 6.0 Ur Specific [place] 1.010 Urine Protein 3+ H Urine Glucose (UA) 1+ H D Urine Ketones Negative Urine Blood Negative Urine Nitrite Negative Urine Bilirubin Negative Urine Urobilinogen Negative Ur Leukocyte Esterase 1+ H Urine WBC (Auto) 20 Urine RBC (Auto) 2 Ur Epithelial Cells Rare Hyaline Casts 1 Urine Mucus Rare 09/01/17 09/01/17 09/01/17 14:25 17:07 21:31 WBC RBC Hgb Hct MCV MCH MCHC RDW Plt Count MPV Neutrophils % Lymphocytes % Monocytes % Eosinophils % Basophils % PTT (Actin FS) 82.0 H D Sodium Potassium Chloride Carbon Dioxide Anion Gap BUN Creatinine Creat Clearance w eGFR POC Glucometer 262 300 Random Glucose Calcium Phosphorus Magnesium Iron TIBC Iron Saturation Ferritin Total Bilirubin AST ALT Alkaline Phosphatase Total Protein Albumin Vitamin B12 TSH Free T4 Urine Color Urine Appearance Urine pH Ur Specific [place] Urine Protein Urine Glucose (UA) Urine Ketones Urine Blood Urine Nitrite Urine Bilirubin Urine Urobilinogen Ur Leukocyte Esterase Urine WBC (Auto) Urine RBC (Auto) Ur Epithelial Cells Hyaline Casts Urine Mucus 09/02/17 09/02/17 09/02/17 05:48 05:48 06:35 WBC 5.4 RBC 3.03 L Hgb 9.7 L Hct 28.3 L MCV 93.1 MCH 32.0 MCHC 34.4 RDW 14.9 Plt Count 188 MPV 9.3 Neutrophils % 59.0 Lymphocytes % 26.3 D Monocytes % 9.4 Eosinophils % 4.4 Basophils % 0.9 PTT (Actin FS) 89.7 H Sodium Potassium Chloride Carbon Dioxide Anion Gap BUN Creatinine Creat Clearance w eGFR POC Glucometer 241 Random Glucose Calcium Phosphorus Magnesium Iron TIBC Iron Saturation Ferritin Total Bilirubin AST ALT Alkaline Phosphatase Total Protein Albumin Vitamin B12 TSH Free T4 Urine Color Urine Appearance Urine pH Ur Specific [place] Urine Protein Urine Glucose (UA) Urine Ketones Urine Blood Urine Nitrite Urine Bilirubin Urine Urobilinogen Ur Leukocyte Esterase Urine WBC (Auto) Urine RBC (Auto) Ur Epithelial Cells Hyaline Casts Urine Mucus Active Medications Generic Name Dose Route Start Last Admin Trade Name Freq PRN Reason Stop Dose Admin Amlodipine Besylate 5 mg 08/30/17 10:00 09/01/17 09:34 Norvasc - PO 5 mg DAILY [facility] Administration Aspirin 81 mg 08/30/17 10:00 09/01/17 09:35 Asa - PO 81 mg DAILY [facility] Administration Atorvastatin Calcium 80 mg 08/29/17 22:00 09/01/17 21:30 Lipitor - PO 80 mg HS [facility] Administration Clopidogrel Bisulfate 75 mg 08/30/17 10:00 09/01/17 09:34 Plavix - PO 75 mg DAILY [facility] Administration Darunavir 600 mg 08/29/17 22:00 09/01/17 21:29 Prezista - PO 600 mg BID [facility] Administration Etravirine 200 mg 08/29/17 22:00 09/01/17 21:29 Intelence - PO 200 mg BID [facility] Administration Gabapentin 400 mg 08/29/17 22:00 09/02/17 06:33 Neurontin - PO 400 mg TID [facility] Administration Heparin Sodium (Porcine) 1,000 unit 08/30/17 09:03 08/31/17 08:44 Heparin - IVPUSH 1,000 unit PRN PRN Administration Heparin Heparin Sodium (Porcine) 5,000 unit 08/30/17 09:03 09/01/17 08:44 Heparin - IVPUSH 5,000 unit PRN PRN Administration Heparin HEPARIN SOD,PORK IN 0.45% NACL 25,000 units in 500 mls @ 20 mls/hr 08/30/17 10 :00 09/01/17 15:16 Heparin-1/2ns 25,000 Units/500 IVPB 1,500 units/hr TITR [facility] 30 mls/hr Protocol Administration 1,000 UNITS/HR Insulin Aspart 1 vial 08/31/17 09:18 09/02/17 06:36 Novolog Vial Sliding Scale - SQ 4 units TIDAC [facility] Administration Protocol Insulin Detemir 34 units 08/29/17 22:00 09/01/17 21:30 Levemir Vial SQ 34 unit HS [facility] Administration Metoprolol Succinate 100 mg 08/31/17 10:00 09/01/17 09:34 Toprol Xl - PO 100 mg DAILY [facility] Administration Non-Formulary Medication 60 mg 08/30/17 10:00 Daclatasvir Dihydrochloride [Daklinza] PO DAILY [facility] Pantoprazole Sodium 40 mg 08/30/17 16:45 09/01/17 09:34 Protonix - PO 40 mg DAILY [facility] Administration Raltegravir 400 mg 08/29/17 22:00 09/01/17 21:28 Isentress - PO 400 mg BID [facility] Administration ASSESSMENT/PLAN: Pt is a 66 yo F with PMHx of diastolic CHF(last ECHO-07/07), [place] (s/p stent placement 03/2016, 12/2016), IDDM, HTN, HLD, HIV and small SDH 04/2016, recent admission for PNA (07/09) presenting with a 4 day hx of SOB #Right foot swelling - DVT positive Bilateral pedal edema R>L Ambulates with difficulty, recent travel by air Duplex US R LE shows DVT Xray R foot-AP/Lateral- no acute pathology Cr-rising 2.5 Lasix held (does not look volume overloaded) Continue heparin gtt aPTT CBC #R/O PE Continue iv heparin gtt V/Q scan for today, recent CXR -no acute pathology Dr Godinez consulted- appreciate recommendations #Acute on chronic CHF exacerbation: Not volume overload ed at this time-Lasix held Likely due to medication non compliance Pt diagnosed with diastolic CHF - ECHO 07/07 Repeat ECHO- see above, will need MRI as an outpatient BNP at presentation-3049.91 CXR at presentation- diffuse pulmonary vascular congestion with possible L pleural effusion Repeat CXR- resolving Hold lasix- with rising Cr- Daily weights Salt restriction- less than 1200mg per daily Strict ins and outs To consider follow up measures addressing compliance on discharge EKG- no features of ischemia- old T waves Negative trop x3 Continue Toprol XL 50mg daily Dr Hsieh on board- increased toprol to 100mg To continue amlodipine for now until renal function improves for replacement with ARBs or ACEI #small SDH 04/2016 No obvious lateralizing signs/ residual deficits Cont ASA Cont metoprolol D/W Dr Medina -considering previous bleed, now on heparin gtt for possible PE , pt should get CT head w/o contrast- shows chronic infarcts Neurol- Dr Zarco on board- appreciate recs- No acute bleed To D/W cardio about starting coumadin for DVT (in addition to ASA and clopidogrel- S/p stents) Will follow #NÉSTOR on CKD: Cr- 1.7 on presentation, still trending up May currently be at her baseline Monitor BMP Lovenox stopped Avoid nephrotoxic drugs Dr Gomez on the case- appreciate recs # Hx of [place] (s/p stent placement 03/2016, 12/2016) Cont daily ASA 81mg Toprol XL 50mg daily #IDDM SQ Insulin Detemir 34U HS SQ Insulin Aspart 5u TIDAC -stopped Cont insulin sliding scale #Diabetic neuropathy Gabapentin 400 tid #HTN Amlodipine 5mg daily Toprol XL 100mg daily #HLD Lipitor 80mg PO HS #HIV Daklinza 60mg PO daily Raltegravir 400 mg PO BID Darunavir 600mg PO bid Etravirine 200mg bid To talk to PCP to reconcile meds #Chronic anemia Iron Polysac/Iron Heme/FA/B12 PO ACBK #L Abdominal pain with epigastric tenderness R/O atypical chest pain vs GERD : EKG stat- Likely new T wave inversions Repeat trops- negative x3 Tabs protonix 40mg daily Monitor #FEN No IVF at this time Monitor electrolytes and replete as needed Low salt/diabetic diet Dispo: Admit Tele Visit type - Emergency Visit Emergency Visit: Yes ED Registration Date: 08/29/17 Care time: The patient presented to the Emergency Department on the above date and was hospitalized for further evaluation of their emergent condition. - New Patient This patient is new to me today: No - Critical Care Critical Care patient: No - Discharge Referral Referred to [facility] No
[2017-09-02 07:16] LABS: ANION GAP 8 (8-16); BLOOD UREA NITROGEN 30 mg/dL (7-18); CHLORIDE 107 mmol/L (98-107); CO2 26 mmol/L (21-32); CREATININE 2.5 mg/dL (0.55-1.02); GLUCOSE,RANDOM 245 mg/dL (74-106); MAGNESIUM 1.8 mg/dL (1.8-2.4); PHOSPHOROUS 3.5 mg/dL (2.5-4.9); POTASSIUM 3.8 mmol/L (3.5-5.1); SODIUM 141 mmol/L (136-145)
[2017-09-02] MEDS: HEPARIN SOD,PORK IN 0.45% NACL 25,000 UNITS/500 ML INFUS.BAG IVPB SCH ×2 (07:27→09:34)
--- NOTE | 2017-09-02 07:55 | PN ---
Teaching Attending Note Name of Resident: Henny Peraza ATTENDING PHYSICIAN STATEMENT I saw and evaluated the patient. I reviewed the resident's note and discussed the case with the resident. I agree with the resident's findings and plan as documented with exceptions below. SUBJECTIVE: Patient seen and examined. breathing/swelling improved, no new complaints otherwise. OBJECTIVE: Vital Signs Period Temp Pulse Resp BP Sys/Stallings Pulse Ox Last 24 Hr 97.8 F-98.4 F 84-90 18-20 133-159/71-91 94-96 Intake & Output 08/30/17 08/31/17 09/01/17 09/02/17 23:59 23:59 23:59 23:59 Intake Total 1160 1402 1536 540 Output Total 206 063 1898 950 Balance 260 1852 -714 -410 Weight 209 lb 2 oz 231 lb 231 lb 12.8 oz 232 lb 6.4 oz General: ambulating with PT, no acute distress Chest: CTAB, no rales or wheezing appreciated. Abdomen: soft, obese, NT Extremities: bilateral LE edema improved, right foot edema improved. Home Medication List Medication Instructions Recorded Confirmed Type Aspirin 81 mg PO DAILY 07/07/17 07/07/17 History Cholecalciferol (Vitamin D3) 2,000 unit PO DAILY 07/07/17 07/07/17 History [D3-2000] Clopidogrel Bisulfate [Clopidogrel] 75 mg PO DAILY 07/07/17 08/30/17 History Daclatasvir Dihydrochloride 60 mg PO DAILY 07/07/17 07/07/17 History [Daklinza] Darunavir Ethanolate [Prezista -] 600 mg PO BID 07/07/17 08/30/17 History Etravirine [Intelence -] 200 mg PO BID 07/07/17 08/30/17 History Insulin Aspart (Niacinamide) 16 unit SQ TID 07/07/17 07/07/17 History [Fiasp 100 Unit/ml Vial] Insulin Detemir [Levemir Flextouch] 34 unit SQ HS 07/07/17 07/07/17 History Iron Polysac/Iron Heme/FA/B12 1 each PO ACBK 07/07/17 07/08/17 History [Bifera Rx Tablet] Lactic Acid [Lactinol Hx] 0 gm TP ASDIR 07/07/17 07/07/17 History Raltegravir [Isentress] 400 mg PO BID 07/07/17 08/30/17 History Amlodipine Besylate [Norvasc -] 5 mg PO DAILY 07/08/17 08/30/17 History Gabapentin 400 mg PO TID 07/08/17 07/08/17 History Metoprolol Tartrate 1 tab PO BID 08/30/17 08/30/17 History Ritonavir [Norvir] 100 mg PO BID 08/30/17 08/30/17 History Active Medications Generic Name Dose Route Start Last Admin Trade Name Freq PRN Reason Stop Dose Admin Amlodipine Besylate 5 mg 08/30/17 10:00 09/01/17 09:34 Norvasc - PO 5 mg DAILY [facility] Administration Aspirin 81 mg 08/30/17 10:00 09/01/17 09:35 Asa - PO 81 mg DAILY [facility] Administration Atorvastatin Calcium 80 mg 08/29/17 22:00 09/01/17 21:30 Lipitor - PO 80 mg HS [facility] Administration Clopidogrel Bisulfate 75 mg 08/30/17 10:00 09/01/17 09:34 Plavix - PO 75 mg DAILY [facility] Administration Darunavir 600 mg 08/29/17 22:00 09/01/17 21:29 Prezista - PO 600 mg BID [facility] Administration Etravirine 200 mg 08/29/17 22:00 09/01/17 21:29 Intelence - PO 200 mg BID [facility] Administration Gabapentin 400 mg 08/29/17 22:00 09/02/17 06:33 Neurontin - PO 400 mg TID [facility] Administration Heparin Sodium (Porcine) 1,000 unit 08/30/17 09:03 08/31/17 08:44 Heparin - IVPUSH 1,000 unit PRN PRN Administration Heparin Heparin Sodium (Porcine) 5,000 unit 08/30/17 09:03 09/01/17 08:44 Heparin - IVPUSH 5,000 unit PRN PRN Administration Heparin HEPARIN SOD,PORK IN 0.45% NACL 25,000 units in 500 mls @ 20 mls/hr 08/30/17 10 :00 09/02/17 07:27 Heparin-1/2ns 25,000 Units/500 IVPB 1,450 units/hr TITR [facility] 29 mls/hr Protocol Administration 1,000 UNITS/HR Insulin Aspart 5 units 09/02/17 11:00 Novolog Vial SQ TIDAC [facility] Protocol Insulin Aspart 1 vial 09/02/17 07:53 Novolog Vial Sliding Scale - SQ TIDAC [facility] Protocol Insulin Detemir 34 units 08/29/17 22:00 09/01/17 21:30 Levemir Vial SQ 34 unit HS [facility] Administration Metoprolol Succinate 100 mg 08/31/17 10:00 09/01/17 09:34 Toprol Xl - PO 100 mg DAILY [facility] Administration Non-Formulary Medication 60 mg 08/30/17 10:00 Daclatasvir Dihydrochloride [Daklinza] PO DAILY [facility] Pantoprazole Sodium 40 mg 08/30/17 16:45 09/01/17 09:34 Protonix - PO 40 mg DAILY [facility] Administration Raltegravir 400 mg 08/29/17 22:00 09/01/17 21:28 Isentress - PO 400 mg BID [facility] Administration Laboratory Results - last 24 hr 09/01/17 09/01/17 09/01/17 06:25 06:25 06:25 WBC RBC Hgb Hct MCV MCH MCHC RDW Plt Count MPV Neutrophils % Lymphocytes % Monocytes % Eosinophils % Basophils % PTT (Actin FS) 30.0 D Sodium Potassium Chloride Carbon Dioxide 30 Anion Gap 7 L BUN 27 H Creatinine 2.1 H Creat Clearance w eGFR 23.42 POC Glucometer Random Glucose 139 H Calcium 8.1 L Phosphorus 3.6 Magnesium 1.8 Iron 56 TIBC 186 L Iron Saturation 30 Ferritin 109.480 Total Bilirubin 0.3 D AST 16 ALT 15 Alkaline Phosphatase 75 Total Protein 6.1 L Albumin 2.4 L Vitamin B12 821 TSH 2.38 Free T4 1.08 Urine Color Urine Appearance Urine pH Ur Specific [place] Urine Protein Urine Glucose (UA) Urine Ketones Urine Blood Urine Nitrite Urine Bilirubin Urine Urobilinogen Ur Leukocyte Esterase Urine WBC (Auto) Urine RBC (Auto) Ur Epithelial Cells Hyaline Casts Urine Mucus 09/01/17 09/01/17 09/01/17 09:35 11:36 14:25 WBC RBC Hgb Hct MCV MCH MCHC RDW Plt Count MPV Neutrophils % Lymphocytes % Monocytes % Eosinophils % Basophils % PTT (Actin FS) 82.0 H D Sodium Potassium Chloride Carbon Dioxide Anion Gap BUN Creatinine Creat Clearance w eGFR POC Glucometer 216 Random Glucose Calcium Phosphorus Magnesium Iron TIBC Iron Saturation Ferritin Total Bilirubin AST ALT Alkaline Phosphatase Total Protein Albumin Vitamin B12 TSH Free T4 Urine Color Ltyellow Urine Appearance Clear Urine pH 6.0 Ur Specific [place] 1.010 Urine Protein 3+ H Urine Glucose (UA) 1+ H D Urine Ketones Negative Urine Blood Negative Urine Nitrite Negative Urine Bilirubin Negative Urine Urobilinogen Negative Ur Leukocyte Esterase 1+ H Urine WBC (Auto) 20 Urine RBC (Auto) 2 Ur Epithelial Cells Rare Hyaline Casts 1 Urine Mucus Rare 09/01/17 09/01/17 09/02/17 17:07 21:31 05:48 WBC RBC Hgb Hct MCV MCH MCHC RDW Plt Count MPV Neutrophils % Lymphocytes % Monocytes % Eosinophils % Basophils % PTT (Actin FS) 89.7 H Sodium Potassium Chloride Carbon Dioxide Anion Gap BUN Creatinine Creat Clearance w eGFR POC Glucometer 262 300 Random Glucose Calcium Phosphorus Magnesium Iron TIBC Iron Saturation Ferritin Total Bilirubin AST ALT Alkaline Phosphatase Total Protein Albumin Vitamin B12 TSH Free T4 Urine Color Urine Appearance Urine pH Ur Specific [place] Urine Protein Urine Glucose (UA) Urine Ketones Urine Blood Urine Nitrite Urine Bilirubin Urine Urobilinogen Ur Leukocyte Esterase Urine WBC (Auto) Urine RBC (Auto) Ur Epithelial Cells Hyaline Casts Urine Mucus 09/02/17 09/02/17 09/02/17 05:48 05:48 06:35 WBC 5.4 RBC 3.03 L Hgb 9.7 L Hct 28.3 L MCV 93.1 MCH 32.0 MCHC 34.4 RDW 14.9 Plt Count 188 MPV 9.3 Neutrophils % 59.0 Lymphocytes % 26.3 D Monocytes % 9.4 Eosinophils % 4.4 Basophils % 0.9 PTT (Actin FS) Sodium 141 Potassium 3.8 Chloride 107 Carbon Dioxide 26 Anion Gap 8 BUN 30 H Creatinine 2.5 H Creat Clearance w eGFR POC Glucometer 241 Random Glucose 245 H Calcium 8.0 L Phosphorus 3.5 Magnesium 1.8 Iron TIBC Iron Saturation Ferritin Total Bilirubin AST ALT Alkaline Phosphatase Total Protein Albumin Vitamin B12 TSH Free T4 Urine Color Urine Appearance Urine pH Ur Specific [place] Urine Protein Urine Glucose (UA) Urine Ketones Urine Blood Urine Nitrite Urine Bilirubin Urine Urobilinogen Ur Leukocyte Esterase Urine WBC (Auto) Urine RBC (Auto) Ur Epithelial Cells Hyaline Casts Urine Mucus Renal/Bladder US results noted ASSESSMENT AND PLAN: 66 yof with acute on chronic diastolic HF exacerbation in the setting of not taking her lasix and right toe pain and swelling -Dyspnea, acute on chronic diastolic heart failure exacerbation, ?PE given RLE DVT -RLE near occlusive Popliteal vein DVT -NÉSTOR on CKD stage III -CAD s/p PCI in 03/2016 and RCA x 2 in 12/2016 -Hyperlipidemia -Obesity -IDDM, poorly controlled -HTN -Mitral regurgitation -?Ventricular Noncompaction syndrome -HIV on HAART -h/o Fronto-parietal CVA Plan: Continue heparin drip. Pulmonary input noted, V/Q scan today post diuresis. Repeat CXR noted. Hematology input noted, CT brain neg for concerns. Iron panel noted, follow up FOBT. discuss with Heme to start oral anti-coagulation, anticipate coumadin. ?Xarelto , however worsening NÉSTOR. Cr rising, lungs clear,lasix on hold, bladder scan with no evidence of retention. Renal/Bladder US noted. Renal consult. Strict I/Os and daily weights. ACS ruled out, 2D echo results reviewed. Outpatient cardiac MRI. Foot xray noted, some swelling, no acute concerns. Lipid panel noted, Suspect component of non compliance. Continue statin. Continue ASA/plavix/Toprol XL, statin, Continue levemir and ISS. Resume premeal novolog 5 units TID with sliding scale to start >200.A1c 10.1. Continue HAART. DVTPPx full dose heparin Dispo pending clinical improvement. PT eval noted. Dispo later this week pending resolution of medical issues. Plan discussed with patient in detail and all questions answered.
[2017-09-02] MEDS ORDERED: POTASSIUM CHLORIDE ORAL LIQUID 20 MEQ/15 ML PO ONE (08:45)
[2017-09-02] MEDS: PANTOPRAZOLE 40 MG TABLET (FP) PO SCH (09:21)
[2017-09-02] MEDS: CLOPIDOGREL BISULFATE 75 MG TABLET (FP) PO SCH (09:22)
[2017-09-02] MEDS: amLODIPine BESYLATE 5 MG TABLET (FP) PO SCH (09:22)
[2017-09-02] MEDS: DARUNAVIR ETHANOLATE 600 MG TAB PO SCH ×2 (09:22→21:14)
[2017-09-02] MEDS: ASPIRIN 81 MG CHEWABLE TABLETS PO SCH (09:22)
[2017-09-02] MEDS: RALTEGRAVIR POTASSIUM 400 MG TAB PO SCH ×2 (09:23→21:15)
[2017-09-02] MEDS: ETRAVIRINE 100 MG TABLET PO SCH ×2 (09:23→21:15)
[2017-09-02] MEDS ORDERED: PT OWN MED DRAWER 7, Y5N ONE (09:33)
--- NOTE | 2017-09-02 10:45 | PN ---
Progress Note, Physician History of Present Illness: PULMONARY ALERT,FEELING BETTER,-CP,-SOB,AMBULATING - Current Medication List Current Medications: Active Medications Amlodipine Besylate (Norvasc -) 5 mg PO DAILY [facility] Last Admin: 09/02/17 09:22 Dose: 5 mg Aspirin (Asa -) 81 mg PO DAILY [facility] Last Admin: 09/02/17 09:22 Dose: 81 mg Atorvastatin Calcium (Lipitor -) 80 mg PO HS [facility] Last Admin: 09/01/17 21:30 Dose: 80 mg Clopidogrel Bisulfate (Plavix -) 75 mg PO DAILY [facility] Last Admin: 09/02/17 09:22 Dose: 75 mg Darunavir (Prezista -) 600 mg PO BID [facility] Last Admin: 09/02/17 09:22 Dose: 600 mg Etravirine (Intelence -) 200 mg PO BID [facility] Last Admin: 09/02/17 09:23 Dose: 200 mg Gabapentin (Neurontin -) 400 mg PO TID [facility] Last Admin: 09/02/17 06:33 Dose: 400 mg Heparin Sodium (Porcine) (Heparin -) 1,000 unit IVPUSH PRN PRN PRN Reason: Heparin Last Admin: 08/31/17 08:44 Dose: 1,000 unit Heparin Sodium (Porcine) (Heparin -) 5,000 unit IVPUSH PRN PRN PRN Reason: Heparin Last Admin: 09/01/17 08:44 Dose: 5,000 unit HEPARIN SOD,PORK IN 0.45% NACL (Heparin-1/2ns 25,000 Units/500) 25,000 units in 500 mls @ 20 mls/hr IVPB TITR [facility]; 1,000 UNITS/HR PRN Reason: Protocol Last Admin: 09/02/17 09:34 Dose: 1,400 units/hr, 28 mls/hr Insulin Aspart (Novolog Vial) 5 units SQ TIDAC [facility] PRN Reason: Protocol Insulin Aspart (Novolog Vial Sliding Scale -) 1 vial SQ TIDAC [facility] PRN Reason: Protocol Insulin Detemir (Levemir Vial) 34 units SQ [facility] Last Admin: 09/01/17 21:30 Dose: 34 unit Metoprolol Succinate (Toprol Xl -) 100 mg PO DAILY [facility] Last Admin: 09/02/17 09:22 Dose: 100 mg Non-Formulary Medication (Daclatasvir Dihydrochloride [Daklinza]) 60 mg PO DAILY [facility] Pantoprazole Sodium (Protonix -) 40 mg PO DAILY [facility] Last Admin: 09/02/17 09:21 Dose: 40 mg Raltegravir (Isentress -) 400 mg PO BID [facility] Last Admin: 09/02/17 09:23 Dose: 400 mg - Objective Vital Signs: Vital Signs Temperature 98.2 F 09/02/17 08:50 Pulse Rate 96 H 09/02/17 08:50 Respiratory Rate 09/02/17 09:00 Blood Pressure 140/51 09/02/17 08:50 O2 Sat by Pulse Oximetry (%) 94 L 09/02/17 09:00 Constitutional: Yes: Well Nourished, Calm Eyes: Yes: WNL HENT: Yes: WNL Neck: Yes: WNL Cardiovascular: Yes: Regular Rate and Rhythm, S1, S2 Respiratory: Yes: Diminished Gastrointestinal: Yes: Normal Bowel Sounds, Soft Extremities: Yes: WNL Edema: Yes Labs: CBC, BMP 09/02/17 05:48 09/02/17 05:48 INR, PTT INR 1.01 (0.82-1.09) 08/31/17 06:28 Problem List - Problems (1) DVT (deep venous thrombosis) Code(s): I82.409 - ACUTE EMBOLISM AND THOMBOS UNSP DEEP VN UNSP LOWER EXTREMITY Qualifiers: DVT location: upper extremity (2) CHF (congestive heart failure) Code(s): I50.9 - HEART FAILURE, UNSPECIFIED Qualifiers: Heart failure type: unspecified Heart failure chronicity: unspecified Qualified Code(s): I50.9 - Heart failure, unspecified (3) Acute pulmonary edema Code(s): J81.0 - ACUTE PULMONARY EDEMA (4) Cerebrovascular accident (CVA) Code(s): I63.9 - CEREBRAL INFARCTION, UNSPECIFIED Qualifiers: CVA mechanism: unspecified Qualified Code(s): I63.9 - Cerebral infarction, unspecified (5) Hyperlipidemia Code(s): E78.5 - HYPERLIPIDEMIA, UNSPECIFIED (6) Hypertriglyceridemia Code(s): E78.1 - PURE HYPERGLYCERIDEMIA (7) Intracranial hemorrhage Code(s): I62.9 - NONTRAUMATIC INTRACRANIAL HEMORRHAGE, UNSPECIFIED (8) Stented coronary artery Code(s): Z95.5 - PRESENCE OF CORONARY ANGIOPLASTY IMPLANT AND GRAFT (9) CAD (coronary artery disease) Code(s): I25.10 - ATHSCL HEART DISEASE OF [place] CORONARY ARTERY W/O ANG PCTRS (10) CKD (chronic kidney disease) Code(s): N18.9 - CHRONIC KIDNEY DISEASE, UNSPECIFIED Qualifiers: Chronic kidney disease stage: unspecified stage Qualified Code(s): N18.9 - Chronic kidney disease, unspecified (11) Diabetes Code(s): E11.9 - TYPE 2 DIABETES MELLITUS WITHOUT COMPLICATIONS (12) HIV (human immunodeficiency virus infection) Code(s): Z21 - ASYMPTOMATIC HUMAN IMMUNODEFICIENCY VIRUS INFECTION STATUS (13) H/O traumatic subdural hematoma Code(s): Z87.828 - PERSONAL HISTORY OF OTH (HEALED) PHYSICAL INJURY AND TRAUMA (14) Pulmonary hypertension Code(s): I27.20 - PULMONARY HYPERTENSION, UNSPECIFIED Assessment/Plan IMP ACUTE ON CHRONIC DIASTOLIC CHF RLE DVT ? PE CKD PULMONARY HTN H/O SDH H/O HIV H/O CVA LIKELY OSAS ASHD S/P IL S/P STENT PLAN AC O2 LASIX ON HOLD SECONDARY TO WORSENING RENAL FUNCTION DAILY WTS F/U CHEST X-RAYS V/Q SCAN MONITOR LYTES,RENAL FUNCTION SLEEP SCREEN DR HODGES Problem List - Problems (1) DVT (deep venous thrombosis) Code(s): I82.409 - ACUTE EMBOLISM AND THOMBOS UNSP DEEP VN UNSP LOWER EXTREMITY (2) CHF (congestive heart failure) Code(s): I50.9 - HEART FAILURE, UNSPECIFIED Qualifiers: Heart failure type: unspecified Heart failure chronicity: unspecified Qualified Code(s): I50.9 - Heart failure, unspecified (3) Acute pulmonary edema Code(s): J81.0 - ACUTE PULMONARY EDEMA (4) Cerebrovascular accident (CVA) Code(s): I63.9 - CEREBRAL INFARCTION, UNSPECIFIED Qualifiers: CVA mechanism: unspecified Qualified Code(s): I63.9 - Cerebral infarction, unspecified (5) Hyperlipidemia Code(s): E78.5 - HYPERLIPIDEMIA, UNSPECIFIED (6) Hypertriglyceridemia Code(s): E78.1 - PURE HYPERGLYCERIDEMIA (7) Intracranial hemorrhage Code(s): I62.9 - NONTRAUMATIC INTRACRANIAL HEMORRHAGE, UNSPECIFIED (8) Stented coronary artery Code(s): Z95.5 - PRESENCE OF CORONARY ANGIOPLASTY IMPLANT AND GRAFT (9) CAD (coronary artery disease) Code(s): I25.10 - ATHSCL HEART DISEASE OF [place] CORONARY ARTERY W/O ANG PCTRS (10) CKD (chronic kidney disease) Code(s): N18.9 - CHRONIC KIDNEY DISEASE, UNSPECIFIED Qualifiers: Chronic kidney disease stage: unspecified stage Qualified Code(s): N18.9 - Chronic kidney disease, unspecified (11) Diabetes Code(s): E11.9 - TYPE 2 DIABETES MELLITUS WITHOUT COMPLICATIONS (12) HIV (human immunodeficiency virus infection) Code(s): Z21 - ASYMPTOMATIC HUMAN IMMUNODEFICIENCY VIRUS INFECTION STATUS (13) H/O traumatic subdural hematoma Code(s): Z87.828 - PERSONAL HISTORY OF OTH (HEALED) PHYSICAL INJURY AND TRAUMA (14) Pulmonary hypertension Code(s): I27.20 - PULMONARY HYPERTENSION, UNSPECIFIED
[2017-09-02 10:59] LABS: URINE CREATININE 44.5 mg/dL (20-320)
[2017-09-02] MEDS ORDERED: INSULIN (NOVOLOG) ASPART 100 UNITS/ML 10ML VIAL ONE (12:17)
[2017-09-02] MEDS: INSULIN (NOVOLOG) ASPART 100 UNITS/ML 10ML VIAL SQ SCH ×2 (12:19→17:15)
--- NOTE | 2017-09-02 13:22 | PN ---
Progress Note, Physician History of Present Illness: Patient is a 66 year old black female with a significant past medical history of diastolic CHF, HI (s/p stent placement 03/2016; additional stent about 3 months ago at [place], [place]), IDDM, HTN, HLD, obesity, HIV and small SDH 2016, who presents to the ED with complaints of difficulty breathing that began 5 days ago. Patient reports visiting her friend in [place] when she ran out of her medication 5 days go. She reports experiencing gradual shortness of breath over the 5 days until she could no longer bear it. Patient reports experiencing chronic cough as well as increased bilateral leg edema since taking her medication. Denies chest pain, Nausea, vomiting. Denies contact with sick individual, out of state travelling. Denies any other symptoms. Sedentary lifestyle. Allergies: None Social history: No smoking. No alcohol. No illicit drugs. Surgical history: coronary stents 2015 and 2017 - Current Medication List Current Medications: Active Medications Amlodipine Besylate (Norvasc -) 5 mg PO DAILY [facility] Last Admin: 09/02/17 09:22 Dose: 5 mg Aspirin (Asa -) 81 mg PO DAILY [facility] Last Admin: 09/02/17 09:22 Dose: 81 mg Atorvastatin Calcium (Lipitor -) 80 mg PO HS [facility] Last Admin: 09/01/17 21:30 Dose: 80 mg Clopidogrel Bisulfate (Plavix -) 75 mg PO DAILY [facility] Last Admin: 09/02/17 09:22 Dose: 75 mg Darunavir (Prezista -) 600 mg PO BID [facility] Last Admin: 09/02/17 09:22 Dose: 600 mg Etravirine (Intelence -) 200 mg PO BID [facility] Last Admin: 09/02/17 09:23 Dose: 200 mg Gabapentin (Neurontin -) 400 mg PO TID [facility] Last Admin: 09/02/17 06:33 Dose: 400 mg Heparin Sodium (Porcine) (Heparin -) 1,000 unit IVPUSH PRN PRN PRN Reason: Heparin Last Admin: 08/31/17 08:44 Dose: 1,000 unit Heparin Sodium (Porcine) (Heparin -) 5,000 unit IVPUSH PRN PRN PRN Reason: Heparin Last Admin: 09/01/17 08:44 Dose: 5,000 unit HEPARIN SOD,PORK IN 0.45% NACL (Heparin-1/2ns 25,000 Units/500) 25,000 units in 500 mls @ 20 mls/hr IVPB TITR [facility]; 1,000 UNITS/HR PRN Reason: Protocol Last Admin: 09/02/17 09:34 Dose: 1,400 units/hr, 28 mls/hr Insulin Aspart (Novolog Vial) 5 units SQ TIDAC [facility] PRN Reason: Protocol Last Admin: 09/02/17 12:19 Dose: 5 units Insulin Aspart (Novolog Vial Sliding Scale -) 1 vial SQ TIDAC [facility] PRN Reason: Protocol Last Admin: 09/02/17 12:21 Dose: 4 units Insulin Detemir (Levemir Vial) 34 units SQ HS [facility] Last Admin: 09/01/17 21:30 Dose: 34 unit Metoprolol Succinate (Toprol Xl -) 100 mg PO DAILY [facility] Last Admin: 09/02/17 09:22 Dose: 100 mg Non-Formulary Medication (Daclatasvir Dihydrochloride [Daklinza]) 60 mg PO DAILY [facility] Pantoprazole Sodium (Protonix -) 40 mg PO DAILY [facility] Last Admin: 09/02/17 09:21 Dose: 40 mg Raltegravir (Isentress -) 400 mg PO BID [facility] Last Admin: 09/02/17 09:23 Dose: 400 mg - Objective Vital Signs: Vital Signs Temperature 98.2 F 09/02/17 08:50 Pulse Rate 96 H 09/02/17 08:50 Respiratory Rate 18 09/02/17 09:00 Blood Pressure 140/51 09/02/17 08:50 O2 Sat by Pulse Oximetry (%) 94 L 09/02/17 09:00 Eyes: Yes: WNL, Conjunctiva Clear, EOM Intact HENT: Yes: WNL, Atraumatic, Normocephalic Neck: Yes: WNL, Supple, Trachea Midline Cardiovascular: Yes: WNL, Regular Rate and Rhythm Respiratory: Yes: WNL, Regular, CTA Bilaterally Gastrointestinal: Yes: WNL, Normal Bowel Sounds Genitourinary: Yes: WNL Musculoskeletal: Yes: WNL Extremities: Yes: WNL Edema: No Integumentary: Yes: WNL Neurological: Yes: WNL, Alert, Oriented ...Motor Strength: WNL Psychiatric: Yes: WNL Labs: CBC, BMP 09/02/17 05:48 09/02/17 05:48 INR, PTT INR 1.01 (0.82-1.09) 08/31/17 06:28 Assessment/Plan Problems (1) HTN (hypertension) Assessment/Plan: On metorpolol succinate (will increase dose to 100 mg daily); on amlodipine and furosemide. If renal function improves, add ACEI or ARB for HTN and renal protection with DM (and may stop amlodipine then if BP falls too precipitously). Code(s): I10 - ESSENTIAL (PRIMARY) HYPERTENSION Qualifiers: Hypertension type: unspecified Qualified Code(s): I10 - Essential (primary ) hypertension (2) Acute on chronic systolic and diastolic heart failure, NYHA class 2 Assessment/Plan: Increase metoprolol. ?Noncompaction syndrome (LV); f/u cardiac records, Consider cardiac MRI as oupatient, if not recently done. Code(s): I50.43 - ACUTE ON CHRONIC COMBINED SYSTOLIC AND DIASTOLIC HRT FAIL (3) DVT (deep venous thrombosis) Assessment/Plan: DVT of lower extremity. Unable to do CTA to r/o PE due to renal dysfunction. On anticoagulants. Code(s): I82.409 - ACUTE EMBOLISM AND THOMBOS UNSP DEEP VN UNSP LOWER EXTREMITY Qualifiers: DVT location: upper extremity (4) Gout Code(s): M10.9 - GOUT, UNSPECIFIED (5) Obesity Code(s): E66.9 - OBESITY, UNSPECIFIED (6) Sleep apnea Code(s): G47.30 - SLEEP APNEA, UNSPECIFIED (7) CAD (coronary artery disease) Assessment/Plan: s/p HI-->stents (the latest was about 3 moths ago at [facility]) F/u records. 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 Pt is presently already on anticoagulant for DVT. She is also being treated for systollic/diastolic CHF. Code(s): I42.4 - ENDOCARDIAL FIBROELASTOSIS
--- NOTE | 2017-09-02 13:41 | CONSULT ---
Consult Consult Specialty:: Nephrology Referred by:: Dr. Angeles Reason for Consultation:: NÉSTOR on CKD - History of Present Illness History of Present Illness: 66 yo F h/o HFpEF, OK s/p stent, IDDM, HTN, HLD, HIV on HAART, subdural hematoma admitted to the hospital initially for worsening dyspnea, orthopenia, weight gain and R pedal edema. Patient was thought to have CHF exacerbation and in light of a recent flight travel from [place], she's later imaged and found to have R near occlusive popliteal DVT. Patient's diabetic since 2003 and not aware of any renal disease. Her Cr baseline has been around 1.6 since early 2015 and it's rapidly worsening during this admission. She denies NSAID use, kidney stone, dysuria, bowel sx, fever, chills, n/v. - Past Medical History [employer]: Yes: Other (small SDH) Cardio/Vascular: Yes: CAD, CHF, HTN, Hyperlipdemia Renal/: Yes: Renal Inusuff ...: No Infectious Disease: Yes: HIV Psych: Yes: Anxiety Endocrine: Yes: Diabetes Mellitus - Past Surgical History Past Surgical History: Yes: Breast Biopsy, Stent (coronary) - Alcohol/Substance Use Hx Alcohol Use: No - Smoking History Smoking history: Never smoked Have you smoked in the past 12 months: No Aproximately how many cigarettes per day: 0 If you are a former smoker, when did you quit?: 20 yrs ago - Social History History of Recent Travel: Yes ([place]; returned 08/27/17) Home Medications - Allergies Allergies/Adverse Reactions: Allergies Allergy/AdvReac Type Severity Reaction Status Date / Time No Known Allergies Allergy Verified 08/29/17 13:49 - Home Medications Home Medications: Ambulatory Orders Aspirin 81 mg PO DAILY 07/07/17 Cholecalciferol (Vitamin D3) [D3-2000] 2,000 unit PO DAILY 07/07/17 Clopidogrel Bisulfate [Clopidogrel] 75 mg PO DAILY 07/07/17 Daclatasvir Dihydrochloride [Daklinza] 60 mg PO DAILY 07/07/17 Darunavir Ethanolate [Prezista -] 600 mg PO BID 07/07/17 Etravirine [Intelence -] 200 mg PO BID 07/07/17 Insulin Aspart (Niacinamide) [Fiasp 100 Unit/ml Vial] 16 unit SQ TID 07/07/17 Insulin Detemir [Levemir Flextouch] 34 unit SQ HS 07/07/17 Iron Polysac/Iron Heme/FA/B12 [Bifera Rx Tablet] 1 each PO ACBK 07/07/17 Lactic Acid [Lactinol Hx] 0 gm TP ASDIR 07/07/17 Raltegravir [Isentress] 400 mg PO BID 07/07/17 Amlodipine Besylate [Norvasc -] 5 mg PO DAILY 07/08/17 Gabapentin 400 mg PO TID 07/08/17 Atorvastatin Ca [Lipitor] 80 mg PO HS #30 tablet 07/09/17 Furosemide [Lasix -] 40 mg PO DAILY #30 tablet 07/09/17 Metoprolol Succinate [Toprol XL -] 50 mg PO DAILY #30 tab.sr.24h 07/09/17 Metoprolol Tartrate 1 tab PO BID 08/30/17 Ritonavir [Norvir] 100 mg PO BID 08/30/17 Family Disease History - Family Disease History Family Disease History: Diabetes: Mother, Heart Disease: Mother Review of Systems - Review of Systems Constitutional: reports: No Symptoms Eyes: reports: Other (R eye blind) Neck: reports: No Symptoms Cardiovascular: reports: No Symptoms Respiratory: reports: Orthopnea, SOB, SOB on Exertion. 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 No: Tenderness Extremities: No: Calf Tenderness Edema: Yes Edema: LLE: Trace, RLE: 2+ Labs: CBC, BMP 09/02/17 05:48 09/02/17 05:48 Imaging - Results X-ray: Report Reviewed, Image Reviewed Ultrasound: Report Reviewed, Image Reviewed Assessment/Plan 66 yo F h/o HFpEF, OK s/p stent, IDDM, HTN, HLD, HIV on HAART, subdural hematoma admitted to the hospital for CHF exacerbation, DVT, and found have to NÉSTOR on CKD. NÉSTOR and CKD HIV on HAART IDDM HTN HLD Acute on chronic diastolic heart failure exacerbation h/o SDH h/o OK - FeNa 4%, spot Upro/Cr 6.81 falls in nephrotic range - Likely cardiorenal syndrome 2/2 acute on chronic heart failure exacerbation - CKD has broad differentials including: HAART medication toxicity, diabetic nephropathy, HIV associated focal segmental glomerulosclerosis - Agree with holding lasix as pt appears not clinically overloaded - Will re-assess her fluid status daily and trend Cr - Avoid nephrotoxins Hola Cummins PGY2 Pager: [phone] Visit type - Emergency Visit Emergency Visit: No - New Patient This patient is new to me today: Yes Date on this admission: 09/02/17 - Critical Care Critical Care patient: No
[2017-09-02 15:04] LABS: RATIO URIN PROTEIN/URIN CREAT 6.81 MG/DL
--- NOTE | 2017-09-02 16:25 | PN ---
Teaching Attending Note Name of Resident: Hola Cummins (Nephrology) ATTENDING PHYSICIAN STATEMENT I saw and evaluated the patient. I reviewed the resident's note and discussed the case with the resident. I agree with the resident's findings and plan as documented. Nephrology Pt is a 66 year old female with pmhx of DM, CHF, HLD, and CKD who presents to the ER with shortness of breath. She says she was in [place] and ran out of her lasix. She did not take the pills for about 2 weeks. She was given diuretics in the hospital with resolution of her pulm symptoms. Her western felt hat blocker began to rise and I was called to evaluate her. She has elevated western felt hat blocker of 1.5 at baseline. pmhx hiv dm htn nkda socail hx denies family hx dm Current Medications Generic Name Dose Route Start Last Admin Trade Name Freq PRN Reason Stop Dose Admin Amlodipine Besylate 5 mg 08/30/17 10:00 09/02/17 09:22 Norvasc - PO 5 mg DAILY WILNER Administration Aspirin 81 mg 08/30/17 10:00 09/02/17 09:22 Asa - PO 81 mg DAILY WILNER Administration Atorvastatin Calcium 80 mg 08/29/17 22:00 09/01/17 21:30 Lipitor - PO 80 mg HS WILNER Administration Clopidogrel Bisulfate 75 mg 08/30/17 10:00 09/02/17 09:22 Plavix - PO 75 mg DAILY WILNER Administration Darunavir 600 mg 08/29/17 22:00 09/02/17 09:22 Prezista - PO 600 mg BID WILNER Administration Etravirine 200 mg 08/29/17 22:00 09/02/17 09:23 Intelence - PO 200 mg BID WILNER Administration Gabapentin 400 mg 08/29/17 22:00 09/02/17 14:14 Neurontin - PO 400 mg TID WILNER Administration Heparin Sodium (Porcine) 1,000 unit 08/30/17 09:03 08/31/17 08:44 Heparin - IVPUSH 1,000 unit PRN PRN Administration Heparin Heparin Sodium (Porcine) 5,000 unit 08/30/17 09:03 09/01/17 08:44 Heparin - IVPUSH 5,000 unit PRN PRN Administration Heparin HEPARIN SOD,PORK IN 0.45% NACL 25,000 units in 500 mls @ 20 mls/hr 08/30/17 10 :00 09/02/17 09:34 Heparin-1/2ns 25,000 Units/500 IVPB 1,400 units/hr TITR WILNER 28 mls/hr Protocol Administration 1,000 UNITS/HR Insulin Aspart 5 units 09/02/17 11:00 09/02/17 12:19 Novolog Vial SQ 5 units TIDAC WILNER Administration Protocol Insulin Aspart 1 vial 09/02/17 07:53 09/02/17 12:21 Novolog Vial Sliding Scale - SQ 4 units TIDAC [facility] Administration Protocol Insulin Detemir 34 units 08/29/17 22:00 09/01/17 21:30 Levemir Vial SQ 34 unit HS WILNER Administration Metoprolol Succinate 100 mg 08/31/17 10:00 09/02/17 09:22 Toprol Xl - PO 100 mg DAILY WILNER Administration Non-Formulary Medication 60 mg 08/30/17 10:00 Daclatasvir Dihydrochloride [Daklinza] PO DAILY WILNER Pantoprazole Sodium 40 mg 08/30/17 16:45 09/02/17 09:21 Protonix - PO 40 mg DAILY WILNER Administration Raltegravir 400 mg 08/29/17 22:00 09/02/17 09:23 Isentress - PO 400 mg BID WILNER Administration Last Vital Signs Temp Pulse Resp BP Pulse Ox 98.2 F 90 18 141/89 94 L 09/02/17 14:36 09/02/17 14:36 09/02/17 14:36 09/02/17 14:36 09/02/17 09:00 Laboratory Tests 07/17/15 07/19/15 07/20/15 23:17 05:50 11:50 Carbon Dioxide BUN Creatinine 1.5 H D 1.5 H 1.5 H Urine Protein U Random Total Protein Urine Creatinine Protein/Creatinin Ratio 08/29/17 08/31/17 09/01/17 15:31 06:28 06:25 Carbon Dioxide BUN Creatinine 1.7 H 1.8 H 2.1 H Urine Protein U Random Total Protein Urine Creatinine Protein/Creatinin Ratio 09/01/17 09/02/17 09/02/17 09:35 05:48 09:30 Carbon Dioxide 26 BUN 30 H Creatinine 2.5 H Urine Protein 3+ H U Random Total Protein 303 H Urine Creatinine 44.5 Protein/Creatinin Ratio 6.81 cardio s1s2 reg pulm clear GI soft, obese ext neg edema neuro awake and alert skin neg rash Impression 1. NÉSTOR 2. nephrotic range proteinuria 3. CHF 4. DVT 5. HIV 6. DM 7. subdural hematoma 8. CAD Plan - hold lasix for now - repeat labs in am - will need renal workup - pt is on IV heparin for DVT, which would make a kidney biopsy difficult at this time - recommend ID eval to assess HIV status - check hg a1c Dr Gomez
[2017-09-02] MEDS ORDERED: BENZOCAINE/MENTH/CETYLPYRD CL 1 EACH LOZENGE MM PRN (16:42)
[2017-09-02] MEDS: INSULIN DETEMIR 100 UNITS/ML MDV SQ SCH (21:13)
[2017-09-02] MEDS: ATORVASTATIN CA 80 MG TABLET (FP) PO SCH (21:14)
[2017-09-03] MEDS ORDERED: INSULIN (NOVOLOG) ASPART 100 UNITS/ML 10ML VIAL ONE (05:19)
[2017-09-03] MEDS: GABAPENTIN 400 MG CAPSULE (FP) PO SCH ×3 (05:24→22:58)
[2017-09-03] MEDS ORDERED: GABAPENTIN 100 MG CAPSULE (FP) PO ONE (06:14)
[2017-09-03] MEDS: INSULIN (NOVOLOG) ASPART 100 UNITS/ML 10ML VIAL SQ SCH ×3 (06:50→17:23)
[2017-09-03] MEDS: INSULIN SLIDING SCALE (NOVOLOG) 1 VIAL SQ SCH ×2 (06:55→12:00)
[2017-09-03 06:57] LABS: BASO % 0.6 % (0-2.0); EOS % 3.8 % (0-4.5); HEMATOCRIT 29.1 % (32.4-45.2); HEMOGLOBIN 9.5 GM/dL (10.7-15.3); LYMPH % 26.8 % (8-40); MCH 30.6 pg (25.7-33.7); MCHC 32.8 g/dl (32.0-36.0); MEAN CELL VOLUME 93.2 fl (80-96); MEAN PLT VOLUME 9.2 fl (7.5-11.1); MONO % 9.9 % (3.8-10.2); NEUT % 58.9 % (42.8-82.8); PLATELET COUNT 184 K/MM3 (134-434); RBC 3.12 M/mm3 (3.60-5.2); WHITE BLOOD COUNT 6.5 K/mm3 (4.0-10.0)
--- NOTE | 2017-09-03 07:13 | PN ---
Physical Exam: SUBJECTIVE: Patient seen and examined. Daughter by the bedside. Pt sounded a bit confrontational, but daughter confirmed she is sometimes that way and requested to be kept in the loop with any changes for the mother. The daughter says the mother wants to go home. No chest pain or sob. OBJECTIVE: Vital Signs Period Temp Pulse Resp BP Sys/Stallings Pulse Ox Last 24 Hr 98.1 F-98.8 F 85-96 18-20 130-159/51-90 94-97 Vital Signs Temp 98.1 F 09/03/17 14:00 Pulse 87 09/03/17 14:00 Resp 19 09/03/17 09:00 BP 153/94 09/03/17 14:00 Pulse Ox 97 09/03/17 09:00 Intake & Output 09/02/17 09/03/17 09/03/17 23:59 11:59 23:59 Intake Total 644 816 240 Output Total 300 Balance 344 816 240 Weight 105.506 kg Intake: IV 224 336 HEPARIN-1/2NS 25,000 224 336 UNITS/500 25,000 units In 500 ml @ 1,000 UNITS/HR 20 mls/hr IVPB TITR WILNER Rx#:[id number] Oral 420 480 240 Output: Urine 300 Void 300 Other: Voiding Method Bedside Commode Toilet # Unmeasured Voids Void 1 1 2 Bowel Movement Yes Yes # Bowel Movements 1 Weight Measurement Method Standing Scale GENERAL: The patient is awake, alert, and fully oriented, in no acute respiratory or painful distress. ENT: moist mucous membranes. LUNGS: Breath sounds equal, clear to auscultation bilaterally HEART: Regular rate and rhythm, S1, S2 ABDOMEN: Soft, nontender, nondistended, normoactive bowel sounds, EXTREMITIES: 2+ pulses, warm, well-perfused, R leg edema 1+, non tender. No pedal edema on L NEUROLOGICAL: Normal speech, normal gait Laboratory Results - last 24 hr 09/02/17 09/02/17 09/02/17 05:48 09:30 09:30 PTT (Actin FS) Sodium 141 Potassium 3.8 Chloride 107 Carbon Dioxide 26 Anion Gap 8 BUN 30 H Creatinine 2.5 H POC Glucometer Random Glucose 245 H Calcium 8.0 L Phosphorus 3.5 Magnesium 1.8 U Random Total Protein 303 H Ur Random Sodium 100 Ur Random Potassium 23.9 Ur Random Chloride 103 Urine Creatinine 44.5 Protein/Creatinin Ratio 6.81 Stool Occult Blood 09/02/17 09/02/17 09/02/17 11:51 16:58 18:00 PTT (Actin FS) 62.9 H Sodium Potassium Chloride Carbon Dioxide Anion Gap BUN Creatinine POC Glucometer 262 270 Random Glucose Calcium Phosphorus Magnesium U Random Total Protein Ur Random Sodium Ur Random Potassium Ur Random Chloride Urine Creatinine Protein/Creatinin Ratio Stool Occult Blood 09/02/17 09/02/17 09/03/17 21:11 22:15 05:25 PTT (Actin FS) Sodium Potassium Chloride Carbon Dioxide Anion Gap BUN Creatinine POC Glucometer 294 189 Random Glucose Calcium Phosphorus Magnesium U Random Total Protein Ur Random Sodium Ur Random Potassium Ur Random Chloride Urine Creatinine Protein/Creatinin Ratio Stool Occult Blood Negative Active Medications Generic Name Dose Route Start Last Admin Trade Name Freq PRN Reason Stop Dose Admin Amlodipine Besylate 5 mg 08/30/17 10:00 09/02/17 09:22 Norvasc - PO 5 mg DAILY WILNER Administration Aspirin 81 mg 08/30/17 10:00 09/02/17 09:22 Asa - PO 81 mg DAILY WILNER Administration Atorvastatin Calcium 80 mg 08/29/17 22:00 09/02/17 21:14 Lipitor - PO 80 mg HS WILNER Administration Benzocaine/Menthol 1 each 09/02/17 16:42 Cepacol Lozenge - MM Q2H PRN SORE THROAT Clopidogrel Bisulfate 75 mg 08/30/17 10:00 09/02/17 09:22 Plavix - PO 75 mg DAILY WILNER Administration Darunavir 600 mg 08/29/17 22:00 09/02/17 21:14 Prezista - PO 600 mg BID WILNER Administration Etravirine 200 mg 08/29/17 22:00 09/02/17 21:15 Intelence - PO 200 mg BID WILNER Administration Gabapentin 400 mg 08/29/17 22:00 09/03/17 05:24 Neurontin - PO 400 mg TID WILNER Administration Heparin Sodium (Porcine) 1,000 unit 08/30/17 09:03 08/31/17 08:44 Heparin - IVPUSH 1,000 unit PRN PRN Administration Heparin Heparin Sodium (Porcine) 5,000 unit 08/30/17 09:03 09/01/17 08:44 Heparin - IVPUSH 5,000 unit PRN PRN Administration Heparin HEPARIN SOD,PORK IN 0.45% NACL 25,000 units in 500 mls @ 20 mls/hr 08/30/17 10 :00 09/02/17 09:34 Heparin-1/2ns 25,000 Units/500 IVPB 1,400 units/hr TITR WILNER 28 mls/hr Protocol Administration 1,000 UNITS/HR Insulin Aspart 5 units 09/02/17 11:00 09/03/17 06:50 Novolog Vial SQ 5 units TIDAC [facility] Administration Protocol Insulin Aspart 1 vial 09/02/17 07:53 09/03/17 06:55 Novolog Vial Sliding Scale - SQ Not Given TIDAC [facility] Protocol Insulin Detemir 34 units 08/29/17 22:00 09/02/17 21:13 Levemir Vial SQ 34 unit HS WILNER Administration Metoprolol Succinate 100 mg 08/31/17 10:00 09/02/17 09:22 Toprol Xl - PO 100 mg DAILY WILNER Administration Non-Formulary Medication 60 mg 08/30/17 10:00 Daclatasvir Dihydrochloride [Daklinza] PO DAILY WILNER Pantoprazole Sodium 40 mg 08/30/17 16:45 09/02/17 09:21 Protonix - PO 40 mg DAILY WILNER Administration Raltegravir 400 mg 08/29/17 22:00 09/02/17 21:15 Isentress - PO 400 mg BID WILNER Administration V/Q scan done on 09/03/17-no evidence of PE ASSESSMENT/PLAN: Pt is a 66 yo F with PMHx of diastolic CHF(last ECHO-07/07), [place] (s/p stent placement 03/2016, 12/2016), IDDM, HTN, HLD, HIV and small SDH 04/2016, recent admission for PNA (07/09) presenting with a 4 day hx of SOB #Right foot swelling - DVT positive Bilateral pedal edema R>L Ambulates with difficulty, recent travel by air Duplex US R LE shows DVT Xray R foot-AP/Lateral- no acute pathology Cr-rising 2.5 Lasix held (does not look volume overloaded) Continue heparin gtt aPTT CBC Start 5mg coumadin today #R/O PE Continue iv heparin gtt V/Q scan done see above Dr Godinez consulted- appreciate recommendations Cont heparin with coumadin bridge 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 with 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 about triple anticoagulation considering her bleeding risk #Acute on chronic CHF exacerbation: Not volume overload ed at this time-Lasix held Likely due to medication non compliance Pt diagnosed with diastolic CHF - ECHO 07/07 Repeat ECHO- see above, will need MRI as an outpatient BNP at presentation-3049.91 CXR at presentation- diffuse pulmonary vascular congestion with possible L pleural effusion Repeat CXR- resolving Hold lasix- with rising Cr- Daily weights Salt restriction- less than 1200mg per daily Strict ins and outs To consider follow up measures addressing compliance on discharge EKG- no features of ischemia- old T waves Negative trop x3 Continue Toprol XL 50mg daily Dr Hsieh on board- increased toprol to 100mg To continue amlodipine for now until renal function improves for replacement with ARBs or ACEI #small SDH 04/2016 No obvious lateralizing signs/ residual deficits Cont ASA Cont metoprolol D/W Dr Medina -considering previous bleed, now on heparin gtt for possible PE , pt should get CT head w/o contrast- shows chronic infarcts Neurol- Dr Zarco on board- appreciate recs- No acute bleed, risk of bleed exists but is aware of current DVT and need for anticoagulation To D/W cardio about starting coumadin for DVT (in addition to ASA and clopidogrel- S/p stents) Will follow #NÉSTOR on CKD: Cr- 1.7 on presentation, still trending up D/W Dr Gomez- Marked proteinuria- likely secondary to HIV/DM/HTN agrees with holding lasix for now. does not look overloaded and cr- is improving HAART may not be contributory May currently be at her baseline Monitor BMP Lovenox stopped Avoid nephrotoxic drugs Dr Gomez on the case- appreciate recs # Hx of OK (s/p stent placement 03/2016, 12/2016) Cont daily ASA 81mg Toprol XL 50mg daily #IDDM SQ Insulin Detemir 34U HS SQ Insulin Aspart 5u TIDAC -stopped Resume home dose 16U TIDAC- regular insulin #Diabetic neuropathy Gabapentin 400 tid #HTN Amlodipine 5mg daily Toprol XL 100mg daily #HLD Lipitor 80mg PO HS Delete pravastatin from home meds #HIV Daklinza 60mg PO daily Raltegravir 400 mg PO BID Darunavir 600mg PO bid Etravirine 200mg bid Medications reconciled #Chronic anemia Iron Polysac/Iron Heme/FA/B12 PO ACBK #L Abdominal pain with epigastric tenderness R/O atypical chest pain vs GERD Resolved EKG stat- Likely new T wave inversions Repeat trops- negative x3 Tabs protonix 40mg daily Monitor #FEN No IVF at this time Monitor electrolytes and replete as needed Low salt/diabetic diet Dispo: Transfer to [facility] D/W social worker health services about VNS on daughter's request but patient declined Visit type - Emergency Visit Emergency Visit: Yes ED Registration Date: 08/29/17 Care time: The patient presented to the Emergency Department on the above date and was hospitalized for further evaluation of their emergent condition. - New Patient This patient is new to me today: No - Critical Care Critical Care patient: No - Discharge Referral Referred to [facility] No
[2017-09-03 07:14] LABS: PROTHROMBIN TIME (PATIENT) 11.3 SEC (9.7-13.0)
[2017-09-03 07:30] LABS: ALBUMIN 2.5 g/dl (3.4-5.0); BLOOD UREA NITROGEN 26 mg/dL (7-18); CALCIUM 8.1 mg/dL (8.5-10.1); CHLORIDE 107 mmol/L (98-107); GLUCOSE,RANDOM 164 mg/dL (74-106); PHOSPHOROUS 3.3 mg/dL (2.5-4.9); POTASSIUM 3.6 mmol/L (3.5-5.1); SGOT/AST 12 U/L (15-37); SODIUM 143 mmol/L (136-145)
[2017-09-03 07:32] LABS: ALK PHOS 74 U/L (45-117); ANION GAP 8 (8-16); BILIRUBIN,TOTAL 0.4 mg/dL (0.2-1.0); CO2 28 mmol/L (21-32); CREATININE 2.2 mg/dL (0.55-1.02); MAGNESIUM 1.9 mg/dL (1.8-2.4); SGPT/ALT 14 U/L (12-78); TOT PROT 6.4 g/dl (6.4-8.2)
[2017-09-03] MEDS ORDERED: PT OWN MED DRAWER 7, Y5N ONE (09:26)
[2017-09-03] MEDS: PANTOPRAZOLE 40 MG TABLET (FP) PO SCH (09:49)
[2017-09-03] MEDS: CLOPIDOGREL BISULFATE 75 MG TABLET (FP) PO SCH (09:49)
[2017-09-03] MEDS: amLODIPine BESYLATE 5 MG TABLET (FP) PO SCH (09:49)
[2017-09-03] MEDS: RALTEGRAVIR POTASSIUM 400 MG TAB PO SCH ×2 (09:50→22:58)
[2017-09-03] MEDS: ASPIRIN 81 MG CHEWABLE TABLETS PO SCH (09:50)
[2017-09-03] MEDS: ETRAVIRINE 100 MG TABLET PO SCH ×2 (09:50→22:58)
--- NOTE | 2017-09-03 09:50 | PN ---
Progress Note (short form) - Note Progress Note: Neurology HISTORY OF PRESENT ILLNESS: 66 yo F with PMHx of diastolic CHF(last ECHO-07/07), NE (s/p stent placement 2015, 12/2016), IDDM, HTN, HLD, HIV and small SDH 04/2016, recent admission for PNA (07/09) presenting with a 4 day hx of SOB, worse on exertion, worsening orthopnea and PND,( has been unable to sleep for days), weight gain (30lbs in one month) and bilateral pedal edema. Per notes, she said she has been gaining weight despite regular exercise in the gym. 4 days prior to admission she reported running out of her lasix (40mg daily) and was unable to reach her primary care physician to refill her medications and thus develop respiratory difficulty and presented to the hospital. CXR noted to have diffuse pulmonary vascular congestion with possible L pleural effusion. I was consulted regarding prior subdural hematoma as patient with reported DVT and for AC. CT head completed and reviewed and no acute changes noted. Evidence of prior craniotomy in R frontal region. No new neurologic deficits. Spoke to nurse today, was asking about starting AC. At this point, as mentioned has baseline risk due to prior hemorage but no new contraindications or concerns. Active Medications Amlodipine Besylate (Norvasc -) 5 mg PO DAILY [facility] Last Admin: 09/02/17 09:22 Dose: 5 mg Aspirin (Asa -) 81 mg PO DAILY [facility] Last Admin: 09/02/17 09:22 Dose: 81 mg Atorvastatin Calcium (Lipitor -) 80 mg PO HS [facility] Last Admin: 09/02/17 21:14 Dose: 80 mg Benzocaine/Menthol (Cepacol Lozenge -) 1 each MM Q2H PRN PRN Reason: SORE THROAT Clopidogrel Bisulfate (Plavix -) 75 mg PO DAILY [facility] Last Admin: 09/02/17 09:22 Dose: 75 mg Darunavir (Prezista -) 600 mg PO BID [facility] Last Admin: 09/02/17 21:14 Dose: 600 mg Docusate Sodium (Colace -) 100 mg PO DAILY [facility] Etravirine (Intelence -) 200 mg PO BID [facility] Last Admin: 09/02/17 21:15 Dose: 200 mg Gabapentin (Neurontin -) 400 mg PO TID [facility] Last Admin: 09/03/17 05:24 Dose: 400 mg Heparin Sodium (Porcine) (Heparin -) 1,000 unit IVPUSH PRN PRN PRN Reason: Heparin Last Admin: 08/31/17 08:44 Dose: 1,000 unit Heparin Sodium (Porcine) (Heparin -) 5,000 unit IVPUSH PRN PRN PRN Reason: Heparin Last Admin: 09/01/17 08:44 Dose: 5,000 unit HEPARIN SOD,PORK IN 0.45% NACL (Heparin-1/2ns 25,000 Units/500) 25,000 units in 500 mls @ 20 mls/hr IVPB TITR [facility]; 1,000 UNITS/HR PRN Reason: Protocol Last Admin: 09/02/17 09:34 Dose: 1,400 units/hr, 28 mls/hr Insulin Aspart (Novolog Vial) 5 units SQ TIDAC [facility] PRN Reason: Protocol Last Admin: 09/03/17 06:50 Dose: 5 units Insulin Aspart (Novolog Vial Sliding Scale -) 1 vial SQ TIDAC [facility] PRN Reason: Protocol Last Admin: 09/03/17 06:55 Dose: Not Given Insulin Detemir (Levemir Vial) 34 units SQ HS [facility] Last Admin: 09/02/17 21:13 Dose: 34 unit Metoprolol Succinate (Toprol Xl -) 100 mg PO DAILY [facility] Last Admin: 09/02/17 09:22 Dose: 100 mg Non-Formulary Medication (Daclatasvir Dihydrochloride [Daklinza]) 60 mg PO DAILY [facility] Pantoprazole Sodium (Protonix -) 40 mg PO DAILY [facility] Last Admin: 09/02/17 09:21 Dose: 40 mg Raltegravir (Isentress -) 400 mg PO BID [facility] Last Admin: 09/02/17 21:15 Dose: 400 mg PHYSICAL EXAMINATION CBCD WBC 6.5 K/mm3 (4.0-10.0) 09/03/17 06:35 RBC 3.12 M/mm3 (3.60-5.2) L 09/03/17 06:35 Hgb 9.5 GM/dL (10.7-15.3) L 09/03/17 06:35 Hct 29.1 % (32.4-45.2) L 09/03/17 06:35 MCV 93.2 fl (80-96) 09/03/17 06:35 MCHC 32.8 g/dl (32.0-36.0) 09/03/17 06:35 RDW 15.0 % (11.6-15.6) 09/03/17 06:35 Plt Count 184 K/MM3 (134-434) 09/03/17 06:35 MPV 9.2 fl (7.5-11.1) 09/03/17 06:35 Vital Signs Temperature 98.1 F 09/03/17 06:00 Pulse Rate 93 H 09/03/17 06:00 Respiratory Rate 19 09/03/17 06:00 Blood Pressure 159/90 09/03/17 06:00 O2 Sat by Pulse Oximetry (%) 97 09/02/17 21:00 GENERAL: Awake, alert, and fully oriented, in no acute respiratory distress, eating a sandwich. HEAD: Normal with no signs of trauma. 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 Moist mucous membranes. NECK: Normal range of motion, supple, no JVD. LUNGS: Dull lung bases, Breath sounds equal, basal creps bilaterally, no wheeze or rhonchi. No accessory muscle use. HEART: Tachycardic, S1 and S2 without murmur, rub or gallop. ABDOMEN: Soft, nontender, distended/obese, normoactive bowel sounds, no guarding MUSCULOSKELETAL: Normal range of motion at all joints. R big toe mild subungual swelling and hematoma. No CVA tenderness. UPPER EXTREMITIES: 2+ pulses, warm, well-perfused. LOWER EXTREMITIES: 2+ pulses, warm, well-perfused. No calf tenderness. Bilateral pitting peripheral edema, up to knee. NEUROLOGICAL: Normal speech. No facial droop, normal tone, limited participation, strength grossly intact, sensory intact, gait deferred CBCD WBC 6.5 K/mm3 (4.0-10.0) 09/03/17 06:35 RBC 3.12 M/mm3 (3.60-5.2) L 09/03/17 06:35 Hgb 9.5 GM/dL (10.7-15.3) L 09/03/17 06:35 Hct 29.1 % (32.4-45.2) L 09/03/17 06:35 MCV 93.2 fl (80-96) 09/03/17 06:35 MCHC 32.8 g/dl (32.0-36.0) 09/03/17 06:35 RDW 15.0 % (11.6-15.6) 09/03/17 06:35 Plt Count 184 K/MM3 (134-434) 09/03/17 06:35 MPV 9.2 fl (7.5-11.1) 09/03/17 06:35 CMP Sodium 143 mmol/L (136-145) 09/03/17 06:35 Potassium 3.6 mmol/L (3.5-5.1) 09/03/17 06:35 Chloride 107 mmol/L (98-107) 09/03/17 06:35 Carbon Dioxide 28 mmol/L (21-32) 09/03/17 06:35 Anion Gap 8 (8-16) 09/03/17 06:35 BUN 26 mg/dL (7-18) H 09/03/17 06:35 Creatinine 2.2 mg/dL (0.55-1.02) H 09/03/17 06:35 Creat Clearance w eGFR 22.20 (>60) 09/03/17 06:35 Calcium 8.1 mg/dL (8.5-10.1) L 09/03/17 06:35 Total Bilirubin 0.4 mg/dL (0.2-1.0) D 09/03/17 06:35 AST 12 U/L (15-37) L 09/03/17 06:35 ALT 14 U/L (12-78) 09/03/17 06:35 Alkaline Phosphatase 74 U/L (45-117) 09/03/17 06:35 Total Protein 6.4 g/dl (6.4-8.2) 09/03/17 06:35 Albumin 2.5 g/dl (3.4-5.0) L 09/03/17 06:35 CT head reviewed ASSESSMENT/PLAN: 66 yo F with PMHx of diastolic CHF(last ECHO-07/07), [place] (s/p stent placement 2015, 12/2016), IDDM, HTN, HLD, HIV and small SDH 04/2016, recent admission for PNA (07/09) presenting with a 4 day hx of SOB, worse on exertion, worsening orthopnea and PND,( has been unable to sleep for days), weight gain (30lbs in one month) and bilateral pedal edema. Per notes, she said she has been gaining weight despite regular exercise in the gym. 4 days prior to admission she reported running out of her lasix (40mg daily) and was unable to reach her primary care physician to refill her medications and thus develop respiratory difficulty and presented to the hospital. CXR noted to have diffuse pulmonary vascular congestion with possible L pleural effusion. I was consulted regarding prior subdural hematoma as patient with reported DVT and for AC. CT head compelted and reviewed and no acute changes noted. Evidence of prior craniotomy in R frontal region. No new neurologic deficits. Based on this, she does has baseline risk of bleed as any patient with prior hemorrhage. No active intracerebral blood or new risk factors for AC. Continue medical mgmt of CHF. Ct head if any acute changes in mental status deterioration once AC started. Monitor mental status closely.
[2017-09-03] MEDS: DARUNAVIR ETHANOLATE 600 MG TAB PO SCH ×2 (09:51→22:59)
[2017-09-03] MEDS ORDERED: DOCUSATE SODIUM 100 MG CAPSULE (FP) PO SCH (10:00)
[2017-09-03] MEDS: HEPARIN SOD,PORK IN 0.45% NACL 25,000 UNITS/500 ML INFUS.BAG IVPB SCH (10:17)
--- NOTE | 2017-09-03 10:47 | PN ---
Progress Note, Physician History of Present Illness: pulmonary alert,no distress,-sob,-cp. v/q scan low probability for PE - Current Medication List Current Medications: Active Medications Amlodipine Besylate (Norvasc -) 5 mg PO DAILY [facility] Last Admin: 09/03/17 09:49 Dose: 5 mg Aspirin (Asa -) 81 mg PO DAILY [facility] Last Admin: 09/03/17 09:50 Dose: 81 mg Atorvastatin Calcium (Lipitor -) 80 mg PO HS [facility] Last Admin: 09/02/17 21:14 Dose: 80 mg Benzocaine/Menthol (Cepacol Lozenge -) 1 each MM Q2H PRN PRN Reason: SORE THROAT Clopidogrel Bisulfate (Plavix -) 75 mg PO DAILY [facility] Last Admin: 09/03/17 09:49 Dose: 75 mg Darunavir (Prezista -) 600 mg PO BID [facility] Last Admin: 09/03/17 09:51 Dose: 600 mg Docusate Sodium (Colace -) 100 mg PO DAILY [facility] Last Admin: 09/03/17 09:48 Dose: 100 mg Etravirine (Intelence -) 200 mg PO BID [facility] Last Admin: 09/03/17 09:50 Dose: 200 mg Gabapentin (Neurontin -) 400 mg PO TID [facility] Last Admin: 09/03/17 05:24 Dose: 400 mg Heparin Sodium (Porcine) (Heparin -) 1,000 unit IVPUSH PRN PRN PRN Reason: Heparin Last Admin: 08/31/17 08:44 Dose: 1,000 unit Heparin Sodium (Porcine) (Heparin -) 5,000 unit IVPUSH PRN PRN PRN Reason: Heparin Last Admin: 09/01/17 08:44 Dose: 5,000 unit HEPARIN SOD,PORK IN 0.45% NACL (Heparin-1/2ns 25,000 Units/500) 25,000 units in 500 mls @ 20 mls/hr IVPB TITR [facility]; 1,000 UNITS/HR PRN Reason: Protocol Last Admin: 09/03/17 10:17 Dose: 1,400 units/hr, 28 mls/hr Insulin Aspart (Novolog Vial) 5 units SQ TIDAC [facility] PRN Reason: Protocol Last Admin: 09/03/17 06:50 Dose: 5 units Insulin Aspart (Novolog Vial Sliding Scale -) 1 vial SQ TIDAC [facility] PRN Reason: Protocol Last Admin: 09/03/17 06:55 Dose: Not Given Insulin Detemir (Levemir Vial) 34 units SQ HS [facility] Last Admin: 09/02/17 21:13 Dose: 34 unit Metoprolol Succinate (Toprol Xl -) 100 mg PO DAILY [facility] Last Admin: 09/03/17 09:48 Dose: 100 mg Non-Formulary Medication (Daclatasvir Dihydrochloride [Daklinza]) 60 mg PO DAILY [facility] Pantoprazole Sodium (Protonix -) 40 mg PO DAILY [facility] Last Admin: 09/03/17 09:49 Dose: 40 mg Raltegravir (Isentress -) 400 mg PO BID [facility] Last Admin: 09/03/17 09:50 Dose: 400 mg - Objective Vital Signs: Vital Signs Temperature 98.1 F 09/03/17 06:00 Pulse Rate 93 H 09/03/17 06:00 Respiratory Rate 19 09/03/17 06:00 Blood Pressure 159/90 09/03/17 06:00 O2 Sat by Pulse Oximetry (%) 97 09/02/17 21:00 Constitutional: Yes: Well Nourished, Calm Eyes: Yes: WNL HENT: Yes: WNL Neck: Yes: WNL Cardiovascular: Yes: Regular Rate and Rhythm, S1, S2 Respiratory: Yes: CTA Bilaterally Gastrointestinal: Yes: Normal Bowel Sounds, Soft Extremities: Yes: WNL Edema: Yes Labs: CBC, BMP 09/03/17 06:35 09/03/17 06:35 INR, PTT INR 1.00 (0.82-1.09) 09/03/17 06:35 Problem List - Problems (1) DVT (deep venous thrombosis) Code(s): I82.409 - ACUTE EMBOLISM AND THOMBOS UNSP DEEP VN UNSP LOWER EXTREMITY Qualifiers: DVT location: upper extremity (2) CHF (congestive heart failure) Code(s): I50.9 - HEART FAILURE, UNSPECIFIED Qualifiers: Heart failure type: unspecified Heart failure chronicity: unspecified Qualified Code(s): I50.9 - Heart failure, unspecified (3) Acute pulmonary edema Code(s): J81.0 - ACUTE PULMONARY EDEMA (4) Cerebrovascular accident (CVA) Code(s): I63.9 - CEREBRAL INFARCTION, UNSPECIFIED Qualifiers: CVA mechanism: unspecified Qualified Code(s): I63.9 - Cerebral infarction, unspecified (5) Hyperlipidemia Code(s): E78.5 - HYPERLIPIDEMIA, UNSPECIFIED (6) Hypertriglyceridemia Code(s): E78.1 - PURE HYPERGLYCERIDEMIA (7) Intracranial hemorrhage Code(s): I62.9 - NONTRAUMATIC INTRACRANIAL HEMORRHAGE, UNSPECIFIED (8) Stented coronary artery Code(s): Z95.5 - PRESENCE OF CORONARY ANGIOPLASTY IMPLANT AND GRAFT (9) CAD (coronary artery disease) Code(s): I25.10 - ATHSCL HEART DISEASE OF [place] CORONARY ARTERY W/O ANG PCTRS (10) CKD (chronic kidney disease) Code(s): N18.9 - CHRONIC KIDNEY DISEASE, UNSPECIFIED Qualifiers: Chronic kidney disease stage: unspecified stage Qualified Code(s): N18.9 - Chronic kidney disease, unspecified (11) Diabetes Code(s): E11.9 - TYPE 2 DIABETES MELLITUS WITHOUT COMPLICATIONS (12) HIV (human immunodeficiency virus infection) Code(s): Z21 - ASYMPTOMATIC HUMAN IMMUNODEFICIENCY VIRUS INFECTION STATUS (13) H/O traumatic subdural hematoma Code(s): Z87.828 - PERSONAL HISTORY OF OTH (HEALED) PHYSICAL INJURY AND TRAUMA (14) Pulmonary hypertension Code(s): I27.20 - PULMONARY HYPERTENSION, UNSPECIFIED Assessment/Plan IMP ACUTE ON CHRONIC DIASTOLIC CHF RLE DVT ? PE CKD PULMONARY HTN H/O SDH H/O HIV H/O CVA LIKELY OSAS ASHD S/P [place] S/P STENT PLAN AC O2 LASIX ON HOLD SECONDARY TO WORSENING RENAL FUNCTION DAILY WTS F/U CHEST X-RAYS MONITOR LYTES,RENAL FUNCTION DR HODGES Problem List - Problems (1) DVT (deep venous thrombosis) Code(s): I82.409 - ACUTE EMBOLISM AND THOMBOS UNSP DEEP VN UNSP LOWER EXTREMITY (2) CHF (congestive heart failure) Code(s): I50.9 - HEART FAILURE, UNSPECIFIED Qualifiers: Heart failure type: unspecified Heart failure chronicity: unspecified Qualified Code(s): I50.9 - Heart failure, unspecified (3) Acute pulmonary edema Code(s): J81.0 - ACUTE PULMONARY EDEMA (4) Cerebrovascular accident (CVA) Code(s): I63.9 - CEREBRAL INFARCTION, UNSPECIFIED Qualifiers: CVA mechanism: unspecified Qualified Code(s): I63.9 - Cerebral infarction, unspecified (5) Hyperlipidemia Code(s): E78.5 - HYPERLIPIDEMIA, UNSPECIFIED (6) Hypertriglyceridemia Code(s): E78.1 - PURE HYPERGLYCERIDEMIA (7) Intracranial hemorrhage Code(s): I62.9 - NONTRAUMATIC INTRACRANIAL HEMORRHAGE, UNSPECIFIED (8) Stented coronary artery Code(s): Z95.5 - PRESENCE OF CORONARY ANGIOPLASTY IMPLANT AND GRAFT (9) CAD (coronary artery disease) Code(s): I25.10 - ATHSCL HEART DISEASE OF [place] CORONARY ARTERY W/O ANG PCTRS (10) CKD (chronic kidney disease) Code(s): N18.9 - CHRONIC KIDNEY DISEASE, UNSPECIFIED Qualifiers: Chronic kidney disease stage: unspecified stage Qualified Code(s): N18.9 - Chronic kidney disease, unspecified (11) Diabetes Code(s): E11.9 - TYPE 2 DIABETES MELLITUS WITHOUT COMPLICATIONS (12) HIV (human immunodeficiency virus infection) Code(s): Z21 - ASYMPTOMATIC HUMAN IMMUNODEFICIENCY VIRUS INFECTION STATUS (13) H/O traumatic subdural hematoma Code(s): Z87.828 - PERSONAL HISTORY OF OTH (HEALED) PHYSICAL INJURY AND TRAUMA (14) Pulmonary hypertension Code(s): I27.20 - PULMONARY HYPERTENSION, UNSPECIFIED
--- NOTE | 2017-09-03 12:46 | PN ---
Progress Note, Physician Chief Complaint: Ptr A&Ox3; sitting up at bedside; c/o having to undergo "a biopsy; I'm going to be in more [place]".Denies chest pain or dyspnea. History of Present Illness: Patient is a 66 year old black female with a significant past medical history of diastolic CHF, [place] (s/p stent placement 03/2016; additional stent about 3 months ago at [place], [place]), IDDM, HTN, HLD, obesity, HIV and small SDH 2016, who presents to the ED with complaints of difficulty breathing that began 5 days ago. Patient reports visiting her friend in [place] when she ran out of her medication 5 days go. She reports experiencing gradual shortness of breath over the 5 days until she could no longer bear it. Patient reports experiencing chronic cough as well as increased bilateral leg edema since taking her medication. Denies chest pain, Nausea, vomiting. Denies contact with sick individual, out of state travelling. Denies any other symptoms. Sedentary lifestyle. Allergies: None Social history: No smoking. No alcohol. No illicit drugs. Surgical history: coronary stents 2015 and 2017 - Current Medication List Current Medications: Active Medications Amlodipine Besylate (Norvasc -) 5 mg PO DAILY [facility] Last Admin: 09/03/17 09:49 Dose: 5 mg Aspirin (Asa -) 81 mg PO DAILY [facility] Last Admin: 09/03/17 09:50 Dose: 81 mg Atorvastatin Calcium (Lipitor -) 80 mg PO HS [facility] Last Admin: 09/02/17 21:14 Dose: 80 mg Benzocaine/Menthol (Cepacol Lozenge -) 1 each MM Q2H PRN PRN Reason: SORE THROAT Clopidogrel Bisulfate (Plavix -) 75 mg PO DAILY [facility] Last Admin: 09/03/17 09:49 Dose: 75 mg Darunavir (Prezista -) 600 mg PO BID [facility] Last Admin: 09/03/17 09:51 Dose: 600 mg Docusate Sodium (Colace -) 100 mg PO DAILY [facility] Last Admin: 09/03/17 09:48 Dose: 100 mg Etravirine (Intelence -) 200 mg PO BID [facility] Last Admin: 09/03/17 09:50 Dose: 200 mg Gabapentin (Neurontin -) 400 mg PO TID [facility] Last Admin: 09/03/17 05:24 Dose: 400 mg Heparin Sodium (Porcine) (Heparin -) 1,000 unit IVPUSH PRN PRN PRN Reason: Heparin Last Admin: 08/31/17 08:44 Dose: 1,000 unit Heparin Sodium (Porcine) (Heparin -) 5,000 unit IVPUSH PRN PRN PRN Reason: Heparin Last Admin: 09/01/17 08:44 Dose: 5,000 unit HEPARIN SOD,PORK IN 0.45% NACL (Heparin-1/2ns 25,000 Units/500) 25,000 units in 500 mls @ 20 mls/hr IVPB TITR [facility]; 1,000 UNITS/HR PRN Reason: Protocol Last Admin: 09/03/17 10:17 Dose: 1,400 units/hr, 28 mls/hr Insulin Aspart (Novolog Vial) 5 units SQ TIDAC [facility] PRN Reason: Protocol Last Admin: 09/03/17 06:50 Dose: 5 units Insulin Aspart (Novolog Vial Sliding Scale -) 1 vial SQ TIDAC [facility] PRN Reason: Protocol Last Admin: 09/03/17 06:55 Dose: Not Given Insulin Detemir (Levemir Vial) 34 units SQ HS [facility] Last Admin: 09/02/17 21:13 Dose: 34 unit Metoprolol Succinate (Toprol Xl -) 100 mg PO DAILY [facility] Last Admin: 09/03/17 09:48 Dose: 100 mg Non-Formulary Medication (Daclatasvir Dihydrochloride [Daklinza]) 60 mg PO DAILY [facility] Pantoprazole Sodium (Protonix -) 40 mg PO DAILY [facility] Last Admin: 09/03/17 09:49 Dose: 40 mg Raltegravir (Isentress -) 400 mg PO BID [facility] Last Admin: 09/03/17 09:50 Dose: 400 mg - Objective Vital Signs: Vital Signs Temperature 98.1 F 09/03/17 06:00 Pulse Rate 93 H 09/03/17 06:00 Respiratory Rate 19 09/03/17 06:00 Blood Pressure 159/90 09/03/17 06:00 O2 Sat by Pulse Oximetry (%) 97 09/02/17 21:00 Constitutional: Yes: Anxious Eyes: Yes: WNL HENT: Yes: WNL Neck: Yes: WNL Cardiovascular: Yes: S1, S2, S4 Respiratory: Yes: WNL Gastrointestinal: Yes: Soft ...Rectal Exam: Yes: Deferred Genitourinary: No: Anuria Breast(s): Yes: WNL Musculoskeletal: Yes: Muscle Weakness Extremities: Yes: Cool Edema: No Peripheral Pulses WNL: Yes Integumentary: Yes: WNL Neurological: Yes: Alert, Weakness Psychiatric: Yes: Alert, Oriented Labs: CBC, BMP 09/03/17 06:35 09/03/17 06:35 INR, PTT INR 1.00 (0.82-1.09) 09/03/17 06:35 Problem List - Problems (1) HTN (hypertension) Assessment/Plan: On metorpolol succinate ( 100 mg daily); on amlodipine. If renal function improves, add ACEI or ARB for HTN and renal protection with DM (and may stop amlodipine then if BP falls too precipitously). (ECHO mildly reduced LVEF, with ?noncompaction of LV. Code(s): I10 - ESSENTIAL (PRIMARY) HYPERTENSION Qualifiers: Hypertension type: unspecified Qualified Code(s): I10 - Essential (primary ) hypertension (2) Acute on chronic systolic and diastolic heart failure, NYHA class 2 Assessment/Plan: Increased metoprolol. ?Noncompaction syndrome (LV); f/u cardiac records, Consider cardiac MRI as oupatient, if not recently done. Renal dysfunction precludes use of ACEI or ARB presently. Code(s): I50.43 - ACUTE ON CHRONIC COMBINED SYSTOLIC AND DIASTOLIC HRT FAIL (3) DVT (deep venous thrombosis) Assessment/Plan: DVT of lower extremity. Unable to do CTA to r/o PE due to renal dysfunction. Start anticoagulation (warfarin or ?NOAC). Unless evidnec of bleed or other hemtologic abnormalities,recommend continuing with ASA and clopidogrel (CAD-->DEStents in 2015 and 12/2016). Code(s): I82.409 - ACUTE EMBOLISM AND THOMBOS UNSP DEEP VN UNSP LOWER EXTREMITY Qualifiers: DVT location: upper extremity (4) Gout Code(s): M10.9 - GOUT, UNSPECIFIED (5) Obesity Code(s): E66.9 - OBESITY, UNSPECIFIED (6) Sleep apnea Code(s): G47.30 - SLEEP APNEA, UNSPECIFIED (7) CAD (coronary artery disease) Assessment/Plan: s/p SC-->stents (the latest was 11/2016 at [facility]) F/u records. 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 Pt is presently already on anticoagulant for DVT. She is also being treated for systollic/diastolic CHF. Code(s): I42.4 - ENDOCARDIAL FIBROELASTOSIS (12) Subdural hematoma Assessment/Plan: f/u with neurologist Code(s): S06.5X9A - TRAUM SUBDR HEM W LOC OF UNSP DURATION, INIT
--- NOTE | 2017-09-03 13:59 | PN ---
Teaching Attending Note Name of Resident: Henny Peraza ATTENDING PHYSICIAN STATEMENT I saw and evaluated the patient. I reviewed the resident's note and discussed the case with the resident. I agree with the resident's findings and plan as documented. SUBJECTIVE:asymptomatic. denies Cp, SOB, fever, chills, N/V/C/D, hemoptysis, BRBPR, melena OBJECTIVE: Last Vital Signs Temp Pulse Resp BP Pulse Ox 98.1 F 93 H 19 159/90 97 09/03/17 06:00 09/03/17 06:00 09/03/17 06:00 09/03/17 06:00 09/02/17 21:00 Intake & Output 08/31/17 09/01/17 09/02/17 09/03/17 23:59 23:59 23:59 23:59 Intake Total 1402 1536 1184 816 Output Total 240 2250 1250 Balance 1162 -714 -66 816 Weight 231 lb 231 lb 12.8 oz 232 lb 6.4 oz 232 lb 9.6 oz General NAD CV S1 S2 RRR no murmur/rub/gallop Lungs CTA B/L no wheezing/rales/rhonchi Extremities no pedal edema, no calf tenderness ASSESSMENT AND PLAN: 66 yo F with acute on chronic diastolic HF exacerbation in the setting of not taking her lasix and right toe pain and swelling 1. acute on chronic diastolic heart failure exacerbation- now euvolemic. lasix being held. concern was raised for PE due to RLE DVT however VQ scan yesterday was negative. will cont daily weights. , ?PE given RLE DVT 2. RLE near occlusive Popliteal vein DVT- on heparin ggt. will start coumadin bridge today. counselled on risks of systemic anticoagulation. need for medication and food compliance. dietary consult to educate. advised need for frequent labs and monitoring. verbalized understanding 3. NÉSTOR on CKD stage III- with nephrotic range proteinuria. Cr slowly improving. would benefit from renal bx as has multiple of risk factors however pt requires anticoagulation. nephro on board 4. CAD s/p PCI in 03/2016 and RCA x 2 in 12/2016- on asa/plavix. recent stent placement. will d/w cardio if can stop asa while on coumadin. 5. Hyperlipidemia 6. Obesity 7. IDDM, poorly controlled-improved here. start iss to optimize control. cont levemir and novolog pre-meals 8. HTN-improved. cont to adjust medication as needed 9. 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 11. 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 DVT ppx- hep ggt-coumadin bridge 14. can d/c cardiac monitoring
[2017-09-03] MEDS ORDERED: INSULIN (NOVOLOG) ASPART 100 UNITS/ML 10ML VIAL SQ SCH (14:00)
--- NOTE | 2017-09-03 14:28 | PN ---
Progress Note, Physician History of Present Illness: Pt seen and examined at bedside. She is awake and appears comfortable. She denies shortness of breath. - Current Medication List Current Medications: Active Medications Amlodipine Besylate (Norvasc -) 5 mg PO DAILY [facility] Last Admin: 09/03/17 09:49 Dose: 5 mg Aspirin (Asa -) 81 mg PO DAILY [facility] Last Admin: 09/03/17 09:50 Dose: 81 mg Atorvastatin Calcium (Lipitor -) 80 mg PO HS [facility] Last Admin: 09/02/17 21:14 Dose: 80 mg Benzocaine/Menthol (Cepacol Lozenge -) 1 each MM Q2H PRN PRN Reason: SORE THROAT Clopidogrel Bisulfate (Plavix -) 75 mg PO DAILY [facility] Last Admin: 09/03/17 09:49 Dose: 75 mg Darunavir (Prezista -) 600 mg PO BID [facility] Last Admin: 09/03/17 09:51 Dose: 600 mg Etravirine (Intelence -) 200 mg PO BID [facility] Last Admin: 09/03/17 09:50 Dose: 200 mg Gabapentin (Neurontin -) 400 mg PO TID [facility] Last Admin: 09/03/17 13:35 Dose: 400 mg Heparin Sodium (Porcine) (Heparin -) 1,000 unit IVPUSH PRN PRN PRN Reason: Heparin Last Admin: 08/31/17 08:44 Dose: 1,000 unit Heparin Sodium (Porcine) (Heparin -) 5,000 unit IVPUSH PRN PRN PRN Reason: Heparin Last Admin: 09/01/17 08:44 Dose: 5,000 unit HEPARIN SOD,PORK IN 0.45% NACL (Heparin-1/2ns 25,000 Units/500) 25,000 units in 500 mls @ 20 mls/hr IVPB TITR [facility]; 1,000 UNITS/HR PRN Reason: Protocol Last Admin: 09/03/17 10:17 Dose: 1,400 units/hr, 28 mls/hr Insulin Aspart (Novolog Vial) 16 units SQ TIDAC [facility] Insulin Detemir (Levemir Vial) 34 units SQ HS [facility] Last Admin: 09/02/17 21:13 Dose: 34 unit Metoprolol Succinate (Toprol Xl -) 100 mg PO DAILY [facility] Last Admin: 09/03/17 09:48 Dose: 100 mg Non-Formulary Medication (Daclatasvir Dihydrochloride [Daklinza]) 60 mg PO DAILY [facility] Pantoprazole Sodium (Protonix -) 40 mg PO DAILY [facility] Last Admin: 09/03/17 09:49 Dose: 40 mg Raltegravir (Isentress -) 400 mg PO BID [facility] Last Admin: 09/03/17 09:50 Dose: 400 mg Warfarin Sodium (Coumadin -) 5 mg PO DAILY@1800 [facility] - Objective Vital Signs: Vital Signs Temperature 98.1 F 09/03/17 06:00 Pulse Rate 93 H 09/03/17 06:00 Respiratory Rate 19 09/03/17 06:00 Blood Pressure 159/90 09/03/17 06:00 O2 Sat by Pulse Oximetry (%) 97 09/02/17 21:00 Constitutional: Yes: Calm Eyes: Yes: Conjunctiva Clear HENT: Yes: Atraumatic Neck: Yes: Supple Cardiovascular: Yes: S1, S2 Respiratory: Yes: CTA Bilaterally Gastrointestinal: Yes: Soft, Abdomen, Obese Genitourinary: Yes: WNL Musculoskeletal: Yes: WNL Edema: No Neurological: Yes: Oriented Psychiatric: Yes: Oriented Labs: CBC, BMP 09/03/17 06:35 09/03/17 06:35 INR, PTT INR 1.00 (0.82-1.09) 09/03/17 06:35 Problem List - Problems (1) Acute on chronic diastolic CHF (congestive heart failure) Code(s): I50.33 - ACUTE ON CHRONIC DIASTOLIC (CONGESTIVE) HEART FAILURE (2) NÉSTOR (acute kidney injury) Code(s): N17.9 - ACUTE KIDNEY FAILURE, UNSPECIFIED (3) HIV (human immunodeficiency virus infection) Code(s): Z21 - ASYMPTOMATIC HUMAN IMMUNODEFICIENCY VIRUS INFECTION STATUS (4) HTN (hypertension) Code(s): I10 - ESSENTIAL (PRIMARY) HYPERTENSION Qualifiers: Hypertension type: unspecified Qualified Code(s): I10 - Essential (primary ) hypertension Assessment/Plan Current Medications Generic Name Dose Route Start Last Admin Trade Name Freq PRN Reason Stop Dose Admin Amlodipine Besylate 5 mg 08/30/17 10:00 09/03/17 09:49 Norvasc - PO 5 mg DAILY [facility] Administration Aspirin 81 mg 08/30/17 10:00 09/03/17 09:50 Asa - PO 81 mg DAILY [facility] Administration Atorvastatin Calcium 80 mg 08/29/17 22:00 09/02/17 21:14 Lipitor - PO 80 mg HS [facility] Administration Benzocaine/Menthol 1 each 09/02/17 16:42 Cepacol Lozenge - MM Q2H PRN SORE THROAT Clopidogrel Bisulfate 75 mg 08/30/17 10:00 09/03/17 09:49 Plavix - PO 75 mg DAILY [facility] Administration Darunavir 600 mg 08/29/17 22:00 09/03/17 09:51 Prezista - PO 600 mg BID [facility] Administration Etravirine 200 mg 08/29/17 22:00 09/03/17 09:50 Intelence - PO 200 mg BID [facility] Administration Gabapentin 400 mg 08/29/17 22:00 09/03/17 13:35 Neurontin - PO 400 mg TID [facility] Administration Heparin Sodium (Porcine) 1,000 unit 08/30/17 09:03 08/31/17 08:44 Heparin - IVPUSH 1,000 unit PRN PRN Administration Heparin Heparin Sodium (Porcine) 5,000 unit 08/30/17 09:03 09/01/17 08:44 Heparin - IVPUSH 5,000 unit PRN PRN Administration Heparin HEPARIN SOD,PORK IN 0.45% NACL 25,000 units in 500 mls @ 20 mls/hr 08/30/17 10 :00 09/03/17 10:17 Heparin-1/2ns 25,000 Units/500 IVPB 1,400 units/hr TITR [facility] 28 mls/hr Protocol Administration 1,000 UNITS/HR Insulin Aspart 16 units 09/03/17 14:00 Novolog Vial SQ TIDAC [facility] Insulin Detemir 34 units 08/29/17 22:00 09/02/17 21:13 Levemir Vial SQ 34 unit HS [facility] Administration Metoprolol Succinate 100 mg 08/31/17 10:00 09/03/17 09:48 Toprol Xl - PO 100 mg DAILY [facility] Administration Non-Formulary Medication 60 mg 08/30/17 10:00 Daclatasvir Dihydrochloride [Daklinza] PO DAILY [facility] Pantoprazole Sodium 40 mg 08/30/17 16:45 09/03/17 09:49 Protonix - PO 40 mg DAILY [facility] Administration Raltegravir 400 mg 08/29/17 22:00 09/03/17 09:50 Isentress - PO 400 mg BID [facility] Administration Warfarin Sodium 5 mg 09/03/17 18:00 Coumadin - PO DAILY@1800 [facility] Impression 1. NÉSTOR 2. nephrotic range proteinuria 3. CHF 4. DVT 5. HIV 6. DM 7. subdural hematoma 8. CAD Plan - renal function is improving - will send prelim workup - discussed kidney biopsy with pt at length today - avoid nephrotoxins - hold lasix - repeat labs in am
[2017-09-03] MEDS ORDERED: INSULIN SLIDING SCALE (NOVOLOG) 1 VIAL SQ SCH (16:30)
[2017-09-03] MEDS: WARFARIN NA 5 MG TABLET (UD) PO SCH (17:23)
[2017-09-03] MEDS: ATORVASTATIN CA 80 MG TABLET (FP) PO SCH (22:58)
[2017-09-03] MEDS: INSULIN DETEMIR 100 UNITS/ML MDV SQ SCH (22:59)
[2017-09-03] MEDS ORDERED: ACETAMINOPHEN 325 MG TABLET (FP) PO ONE (23:12)
[2017-09-04] MEDS ORDERED: PT OWN MED DRAWER 7, Y5N ONE ×3 (03:18→20:44)
[2017-09-04] MEDS: GABAPENTIN 400 MG CAPSULE (FP) PO SCH ×3 (06:33→21:50)
[2017-09-04] MEDS: HEPARIN SOD,PORK IN 0.45% NACL 25,000 UNITS/500 ML INFUS.BAG IVPB SCH ×3 (06:36→13:26)
[2017-09-04] MEDS: INSULIN (NOVOLOG) ASPART 100 UNITS/ML 10ML VIAL SQ SCH ×3 (06:42→17:35)
--- NOTE | 2017-09-04 07:47 | PN ---
Physical Exam: SUBJECTIVE: Patient seen and examined. No new c/o overnight. Says she does not want the renal biopsy. OBJECTIVE: Vital Signs Period Temp Pulse Resp BP Sys/Stallings Pulse Ox Last 24 Hr 98.1 F-99 F 80-88 18-20 136-157/78-94 97-97 GENERAL: The patient is awake, alert, and fully oriented, in no acute distress. ENT: moist mucous membranes. NECK: full range of motion, supple. LUNGS: Breath sounds equal, clear to auscultation bilaterally, no wheezes, no crackles HEART: Regular rate and rhythm, S1, S2 ABDOMEN: Soft, nontender, obese, normoactive bowel sounds, EXTREMITIES: 2+ pulses, warm, well-perfused, R leg edema 1+ no calf tenderness, no pedal edema on L. NEUROLOGICAL: No facial droop, muscle strength 5/5 globally, Normal speech Laboratory Results - last 24 hr 09/03/17 09/03/17 09/03/17 06:35 06:35 06:35 WBC 6.5 RBC 3.12 L Hgb 9.5 L Hct 29.1 L MCV 93.2 MCH 30.6 MCHC 32.8 RDW 15.0 Plt Count 184 MPV 9.2 Neutrophils % 58.9 Lymphocytes % 26.8 Monocytes % 9.9 Eosinophils % 3.8 Basophils % 0.6 PTT (Actin FS) 58.7 H Sodium 143 Potassium 3.6 Chloride 107 Carbon Dioxide 28 Anion Gap 8 BUN 26 H Creatinine 2.2 H Creat Clearance w eGFR 22.20 POC Glucometer Random Glucose 164 H Calcium 8.1 L Phosphorus 3.3 Magnesium 1.9 Total Bilirubin 0.4 D AST 12 L ALT 14 Alkaline Phosphatase 74 Total Protein 6.4 Albumin 2.5 L 09/03/17 09/03/17 09/03/17 12:26 17:21 22:56 WBC RBC Hgb Hct MCV MCH MCHC RDW Plt Count MPV Neutrophils % Lymphocytes % Monocytes % Eosinophils % Basophils % PTT (Actin FS) Sodium Potassium Chloride Carbon Dioxide Anion Gap BUN Creatinine Creat Clearance w eGFR POC Glucometer 225 358 270 Random Glucose Calcium Phosphorus Magnesium Total Bilirubin AST ALT Alkaline Phosphatase Total Protein Albumin 09/04/17 06:13 WBC RBC Hgb Hct MCV MCH MCHC RDW Plt Count MPV Neutrophils % Lymphocytes % Monocytes % Eosinophils % Basophils % PTT (Actin FS) Sodium Potassium Chloride Carbon Dioxide Anion Gap BUN Creatinine Creat Clearance w eGFR POC Glucometer 147 Random Glucose Calcium Phosphorus Magnesium Total Bilirubin AST ALT Alkaline Phosphatase Total Protein Albumin Active Medications Generic Name Dose Route Start Last Admin Trade Name Sanjayq PRN Reason Stop Dose Admin Amlodipine Besylate 5 mg 08/30/17 10:00 09/03/17 09:49 Norvasc - PO 5 mg DAILY [facility] Administration Aspirin 81 mg 08/30/17 10:00 09/03/17 09:50 Asa - PO 81 mg DAILY [facility] Administration Atorvastatin Calcium 80 mg 08/29/17 22:00 09/03/17 22:58 Lipitor - PO 80 mg HS [facility] Administration Benzocaine/Menthol 1 each 09/02/17 16:42 Cepacol Lozenge - MM Q2H PRN SORE THROAT Clopidogrel Bisulfate 75 mg 08/30/17 10:00 09/03/17 09:49 Plavix - PO 75 mg DAILY [facility] Administration Darunavir 600 mg 08/29/17 22:00 09/03/17 22:59 Prezista - PO 600 mg BID [facility] Administration Etravirine 200 mg 08/29/17 22:00 09/03/17 22:58 Intelence - PO 200 mg BID [facility] Administration Gabapentin 400 mg 08/29/17 22:00 09/04/17 06:33 Neurontin - PO 400 mg TID [facility] Administration Heparin Sodium (Porcine) 1,000 unit 08/30/17 09:03 08/31/17 08:44 Heparin - IVPUSH 1,000 unit PRN PRN Administration Heparin Heparin Sodium (Porcine) 5,000 unit 08/30/17 09:03 09/01/17 08:44 Heparin - IVPUSH 5,000 unit PRN PRN Administration Heparin HEPARIN SOD,PORK IN 0.45% NACL 25,000 units in 500 mls @ 20 mls/hr 08/30/17 10 :00 09/04/17 06:36 Heparin-1/2ns 25,000 Units/500 IVPB 1,400 units/hr TITR [facility] 28 mls/hr Protocol Administration 1,000 UNITS/HR Insulin Aspart 16 units 09/03/17 14:00 09/04/17 06:42 Novolog Vial SQ 16 units TIDAC [facility] Administration Insulin Detemir 34 units 08/29/17 22:00 09/03/17 22:59 Levemir Vial SQ 34 unit HS [facility] Administration Metoprolol Succinate 100 mg 08/31/17 10:00 09/03/17 09:48 Toprol Xl - PO 100 mg DAILY [facility] Administration Non-Formulary Medication 60 mg 08/30/17 10:00 Daclatasvir Dihydrochloride [Daklinza] PO DAILY [facility] Pantoprazole Sodium 40 mg 08/30/17 16:45 09/03/17 09:49 Protonix - PO 40 mg DAILY [facility] Administration Raltegravir 400 mg 08/29/17 22:00 09/03/17 22:58 Isentress - PO 400 mg BID [facility] Administration Warfarin Sodium 5 mg 09/03/17 18:00 09/03/17 17:23 Coumadin - PO 5 mg DAILY@1800 [facility] Administration V/Q scan done on 09/03/17-no evidence of PE ASSESSMENT/PLAN: Pt is a 66 yo F with PMHx of diastolic CHF(last ECHO-07/07), [place] (s/p stent placement 03/2016, 12/2016), IDDM, HTN, HLD, HIV and small SDH 04/2016, recent admission for PNA (07/09) presenting with a 4 day hx of SOB #Right foot swelling - DVT positive Bilateral pedal edema R>L Ambulates with difficulty, recent travel by air Duplex US R LE shows DVT Xray R foot-AP/Lateral- no acute pathology Lasix held (does not look volume overloaded) Continue heparin gtt aPTT CBC Continue 5mg coumadin Explained need for anticoagulation and staying in the hospital for that, pt understands and agrees. 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 She will need it for up to 1 year #Acute on chronic CHF exacerbation: Not volume overload ed at this time-Lasix held Likely due to medication non compliance Pt diagnosed with diastolic CHF - ECHO 07/07 Repeat ECHO- see above, will need MRI as an outpatient BNP at presentation-3049.91 CXR at presentation- diffuse pulmonary vascular congestion with possible L pleural effusion Repeat CXR- resolving Hold lasix- with rising Cr- Daily weights Salt restriction- less than 1200mg per daily Strict ins and outs To consider follow up measures addressing compliance on discharge EKG- no features of ischemia- old T waves Negative trop x3 Continue Toprol XL 50mg daily Dr Hsieh on board- increased toprol to 100mg To continue amlodipine for now until renal function improves for replacement with ARBs or ACEI #small SDH 04/2016 No obvious lateralizing signs/ residual deficits Cont ASA Cont metoprolol D/W Dr Medina -considering previous bleed, now on heparin gtt for possible PE , pt should get CT head w/o contrast- shows chronic infarcts Neurol- Dr Zarco on board- appreciate recs- No acute bleed, risk of bleed exists but is aware of current DVT and need for anticoagulation Comntoinue coumadin for DVT (in addition to ASA and clopidogrel- S/p stents) - D/W neuro and cardio Will follow #NÉSTOR on CKD: Cr- 1.7 on presentation D/W Dr Gomez- Marked proteinuria- likely secondary to HIV/DM/HTN agrees with holding lasix for now. does not look overloaded and cr- is improving HAART may not be contributory May currently be at her baseline Monitor BMP Lovenox stopped Avoid nephrotoxic drugs Dr Gomez on the case- appreciate recs # Hx of [place] (s/p stent placement 03/2016, 12/2016) Cont daily ASA 81mg Cont plavix Toprol XL 50mg daily #IDDM SQ Insulin Detemir 34U HS Resume home dose 16U TIDAC- regular insulin #Diabetic neuropathy Gabapentin 400 tid #HTN Amlodipine 5mg daily Toprol XL 100mg daily #HLD Lipitor 80mg PO HS Delete pravastatin from home meds #HIV Daklinza 60mg PO daily Raltegravir 400 mg PO BID Darunavir 600mg PO bid Etravirine 200mg bid Medications reconciled #Chronic anemia Iron Polysac/Iron Heme/FA/B12 PO ACBK #L Abdominal pain with epigastric tenderness R/O atypical chest pain vs GERD Resolved EKG stat- Likely new T wave inversions Repeat trops- negative x3 Tabs protonix 40mg daily Monitor #FEN No IVF at this time Monitor electrolytes and replete as needed Low salt/diabetic diet # Dispo: Pt transfered to Med Surg, pending bed Pending therapeutic coumadin Visit type - Emergency Visit Emergency Visit: Yes ED Registration Date: 08/29/17 Care time: The patient presented to the Emergency Department on the above date and was hospitalized for further evaluation of their emergent condition. - New Patient This patient is new to me today: No - Critical Care Critical Care patient: No - Discharge Referral Referred to [facility] Med P.C.: No
[2017-09-04 08:59] LABS: BASO % 0.7 % (0-2.0); EOS % 4.3 % (0-4.5); HEMATOCRIT 30.4 % (32.4-45.2); LYMPH % 24.3 % (8-40); MCH 30.8 pg (25.7-33.7); MEAN CELL VOLUME 93.3 fl (80-96); MEAN PLT VOLUME 9.5 fl (7.5-11.1); MONO % 9.6 % (3.8-10.2); NEUT % 61.1 % (42.8-82.8); PLATELET COUNT 196 K/MM3 (134-434); RBC 3.26 M/mm3 (3.60-5.2); RDW 14.8 % (11.6-15.6); WHITE BLOOD COUNT 6.8 K/mm3 (4.0-10.0)
[2017-09-04 09:12] LABS: INR 1.05 (0.82-1.09); PROTHROMBIN TIME (PATIENT) 11.9 SEC (9.7-13.0)
[2017-09-04] MEDS: ETRAVIRINE 100 MG TABLET PO SCH ×2 (09:17→21:51)
[2017-09-04] MEDS: ASPIRIN 81 MG CHEWABLE TABLETS PO SCH (09:17)
[2017-09-04] MEDS: DARUNAVIR ETHANOLATE 600 MG TAB PO SCH ×2 (09:18→21:52)
[2017-09-04] MEDS: CLOPIDOGREL BISULFATE 75 MG TABLET (FP) PO SCH (09:18)
[2017-09-04] MEDS: RALTEGRAVIR POTASSIUM 400 MG TAB PO SCH ×2 (09:18→21:51)
[2017-09-04] MEDS: PANTOPRAZOLE 40 MG TABLET (FP) PO SCH (09:18)
[2017-09-04] MEDS: amLODIPine BESYLATE 5 MG TABLET (FP) PO SCH (09:18)
--- NOTE | 2017-09-04 09:21 | PN ---
Progress Note (short form) - Note Progress Note: Neurology HISTORY OF PRESENT ILLNESS: 66 yo F with PMHx of diastolic CHF(last ECHO-07/07), [place] (s/[place] placement 2015, 12/2016), IDDM, HTN, HLD, HIV and small SDH 04/2016, recent admission for PNA (07/09) presenting with a 4 day hx of SOB, worse on exertion, worsening orthopnea and PND,( has been unable to sleep for days), weight gain (30lbs in one month) and bilateral pedal edema. Per notes, she said she has been gaining weight despite regular exercise in the gym. 4 days prior to admission she reported running out of her lasix (40mg daily) and was unable to reach her primary care physician to refill her medications and thus develop respiratory difficulty and presented to the hospital. CXR noted to have diffuse pulmonary vascular congestion with possible L pleural effusion. I was consulted regarding prior subdural hematoma as patient with reported DVT and for AC. CT head completed and reviewed and no acute changes noted. Evidence of prior craniotomy in R frontal region. No new neurologic deficits. Patient started on AC, denies any issues. No bleeding. No change in mental status, appears at baseline neurologic status. Active Medications Amlodipine Besylate (Norvasc -) 5 mg PO DAILY [facility] Last Admin: 09/04/17 09:18 Dose: 5 mg Aspirin (Asa -) 81 mg PO DAILY [facility] Last Admin: 09/04/17 09:17 Dose: 81 mg Atorvastatin Calcium (Lipitor -) 80 mg PO HS [facility] Last Admin: 09/03/17 22:58 Dose: 80 mg Benzocaine/Menthol (Cepacol Lozenge -) 1 each MM Q2H PRN PRN Reason: SORE THROAT Clopidogrel Bisulfate (Plavix -) 75 mg PO DAILY [facility] Last Admin: 09/04/17 09:18 Dose: 75 mg Darunavir (Prezista -) 600 mg PO BID [facility] Last Admin: 09/04/17 09:18 Dose: 600 mg Etravirine (Intelence -) 200 mg PO BID [facility] Last Admin: 09/04/17 09:17 Dose: 200 mg Gabapentin (Neurontin -) 400 mg PO TID [facility] Last Admin: 09/04/17 06:33 Dose: 400 mg Heparin Sodium (Porcine) (Heparin -) 1,000 unit IVPUSH PRN PRN PRN Reason: Heparin Last Admin: 08/31/17 08:44 Dose: 1,000 unit Heparin Sodium (Porcine) (Heparin -) 5,000 unit IVPUSH PRN PRN PRN Reason: Heparin Last Admin: 09/01/17 08:44 Dose: 5,000 unit HEPARIN SOD,PORK IN 0.45% NACL (Heparin-1/2ns 25,000 Units/500) 25,000 units in 500 mls @ 20 mls/hr IVPB TITR [facility]; 1,000 UNITS/HR PRN Reason: Protocol Last Admin: 09/04/17 06:36 Dose: 1,400 units/hr, 28 mls/hr Insulin Aspart (Novolog Vial) 16 units SQ TIDAC [facility] Last Admin: 09/04/17 06:42 Dose: 16 units Insulin Detemir (Levemir Vial) 34 units SQ HS [facility] Last Admin: 09/03/17 22:59 Dose: 34 unit Metoprolol Succinate (Toprol Xl -) 100 mg PO DAILY [facility] Last Admin: 09/04/17 09:18 Dose: 100 mg Non-Formulary Medication (Daclatasvir Dihydrochloride [Daklinza]) 60 mg PO DAILY [facility] Pantoprazole Sodium (Protonix -) 40 mg PO DAILY [facility] Last Admin: 09/04/17 09:18 Dose: 40 mg Raltegravir (Isentress -) 400 mg PO BID [facility] Last Admin: 09/04/17 09:18 Dose: 400 mg Warfarin Sodium (Coumadin -) 5 mg PO DAILY@1800 [facility] Last Admin: 09/03/17 17:23 Dose: 5 mg PHYSICAL EXAMINATION Vital Signs Temperature 98.2 F 09/04/17 08:52 Pulse Rate 97 H 09/04/17 08:52 Respiratory Rate 20 09/04/17 08:52 Blood Pressure 120/68 09/04/17 08:52 O2 Sat by Pulse Oximetry (%) 98 09/04/17 08:53 GENERAL: Awake, alert, and fully oriented, in no acute respiratory distress, eating a sandwich. HEAD: Normal with no signs of trauma. 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 Moist mucous membranes. NECK: Normal range of motion, supple, no JVD. LUNGS: Dull lung bases, Breath sounds equal, basal creps bilaterally, no wheeze or rhonchi. No accessory muscle use. HEART: Tachycardic, S1 and S2 without murmur, rub or gallop. ABDOMEN: Soft, nontender, distended/obese, normoactive bowel sounds, no guarding MUSCULOSKELETAL: Normal range of motion at all joints. R big toe mild subungual swelling and hematoma. No CVA tenderness. UPPER EXTREMITIES: 2+ pulses, warm, well-perfused. LOWER EXTREMITIES: 2+ pulses, warm, well-perfused. No calf tenderness. Bilateral pitting peripheral edema, up to knee. NEUROLOGICAL: Normal speech. No facial droop, normal tone, limited participation, strength grossly intact, sensory intact, gait deferred CBCD WBC 6.8 K/mm3 (4.0-10.0) 09/04/17 08:10 RBC 3.26 M/mm3 (3.60-5.2) L 09/04/17 08:10 Hgb 10.0 GM/dL (10.7-15.3) L 09/04/17 08:10 Hct 30.4 % (32.4-45.2) L 09/04/17 08:10 MCV 93.3 fl (80-96) 09/04/17 08:10 MCHC 33.0 g/dl (32.0-36.0) 09/04/17 08:10 RDW 14.8 % (11.6-15.6) 09/04/17 08:10 Plt Count 196 K/MM3 (134-434) 09/04/17 08:10 MPV 9.5 fl (7.5-11.1) 09/04/17 08:10 CMP Sodium 143 mmol/L (136-145) 09/03/17 06:35 Potassium 3.6 mmol/L (3.5-5.1) 09/03/17 06:35 Chloride 107 mmol/L (98-107) 09/03/17 06:35 Carbon Dioxide 28 mmol/L (21-32) 09/03/17 06:35 Anion Gap 8 (8-16) 09/03/17 06:35 BUN 26 mg/dL (7-18) H 09/03/17 06:35 Creatinine 2.2 mg/dL (0.55-1.02) H 09/03/17 06:35 Creat Clearance w eGFR 22.20 (>60) 09/03/17 06:35 Random Glucose 164 mg/dL (74-106) H 09/03/17 06:35 Calcium 8.1 mg/dL (8.5-10.1) L 09/03/17 06:35 Total Bilirubin 0.4 mg/dL (0.2-1.0) D 09/03/17 06:35 AST 12 U/L (15-37) L 09/03/17 06:35 ALT 14 U/L (12-78) 09/03/17 06:35 Alkaline Phosphatase 74 U/L (45-117) 09/03/17 06:35 Total Protein 6.4 g/dl (6.4-8.2) 09/03/17 06:35 Albumin 2.5 g/dl (3.4-5.0) L 09/03/17 06:35 CARDIAC ENZYMES Creatine Kinase 310 IU/L (26-192) H 08/30/17 06:16 Troponin I 0.02 ng/ml (0.00-0.05) 08/30/17 12:46 CT head reviewed ASSESSMENT/PLAN: 66 yo F with PMHx of diastolic CHF(last ECHO-07/07), [place] (s/[place] placement [place], 12/2016), IDDM, HTN, HLD, HIV and small SDH 04/2016, recent admission for PNA (07/09) presenting with a 4 day hx of SOB, worse on exertion, worsening orthopnea and PND,( has been unable to sleep for days), weight gain (30lbs in one month) and bilateral pedal edema. Per notes, she said she has been gaining weight despite regular exercise in the gym. 4 days prior to admission she reported running out of her lasix (40mg daily) and was unable to reach her primary care physician to refill her medications and thus develop respiratory difficulty and presented to the hospital. CXR noted to have diffuse pulmonary vascular congestion with possible L pleural effusion. I was consulted regarding prior subdural hematoma as patient with reported DVT and for AC. CT head compelted and reviewed and no acute changes noted. Evidence of prior craniotomy in R frontal region. No new neurologic deficits. Based on this, she does has baseline risk of bleed as any patient with prior hemorrhage. NPatient started on AC, denies any issues. No bleeding. No change in mental status, appears at baseline neurologic status. Ct head if any acute changes in mental status deterioration. Monitor mental status, neuro exam, currently stable.
[2017-09-04 09:30] LABS: ALBUMIN 2.5 g/dl (3.4-5.0); ANION GAP 6 (8-16); BILIRUBIN,TOTAL 0.7 mg/dL (0.2-1.0); BLOOD UREA NITROGEN 23 mg/dL (7-18); CALCIUM 8.4 mg/dL (8.5-10.1); CHLORIDE 107 mmol/L (98-107); CO2 28 mmol/L (21-32); CREATININE 2.2 mg/dL (0.55-1.02); GLUCOSE,RANDOM 111 mg/dL (74-106); PHOSPHOROUS 2.6 mg/dL (2.5-4.9); POTASSIUM 3.5 mmol/L (3.5-5.1); SGOT/AST 13 U/L (15-37); SGPT/ALT 14 U/L (12-78); SODIUM 141 mmol/L (136-145)
[2017-09-04 09:31] LABS: ALK PHOS 78 U/L (45-117); TOT PROT 6.6 g/dl (6.4-8.2)
--- NOTE | 2017-09-04 10:56 | PN ---
Progress Note, Physician History of Present Illness: pulmonary alert,no distress,-cough,-sob,-cp - Current Medication List Current Medications: Active Medications Amlodipine Besylate (Norvasc -) 5 mg PO DAILY [facility] Last Admin: 09/04/17 09:18 Dose: 5 mg Aspirin (Asa -) 81 mg PO DAILY [facility] Last Admin: 09/04/17 09:17 Dose: 81 mg Atorvastatin Calcium (Lipitor -) 80 mg PO HS [facility] Last Admin: 09/03/17 22:58 Dose: 80 mg Benzocaine/Menthol (Cepacol Lozenge -) 1 each MM Q2H PRN PRN Reason: SORE THROAT Clopidogrel Bisulfate (Plavix -) 75 mg PO DAILY [facility] Last Admin: 09/04/17 09:18 Dose: 75 mg Darunavir (Prezista -) 600 mg PO BID [facility] Last Admin: 09/04/17 09:18 Dose: 600 mg Etravirine (Intelence -) 200 mg PO BID [facility] Last Admin: 09/04/17 09:17 Dose: 200 mg Gabapentin (Neurontin -) 400 mg PO TID [facility] Last Admin: 09/04/17 06:33 Dose: 400 mg Heparin Sodium (Porcine) (Heparin -) 1,000 unit IVPUSH PRN PRN PRN Reason: Heparin Last Admin: 08/31/17 08:44 Dose: 1,000 unit Heparin Sodium (Porcine) (Heparin -) 5,000 unit IVPUSH PRN PRN PRN Reason: Heparin Last Admin: 09/01/17 08:44 Dose: 5,000 unit HEPARIN SOD,PORK IN 0.45% NACL (Heparin-1/2ns 25,000 Units/500) 25,000 units in 500 mls @ 20 mls/hr IVPB TITR [facility]; 1,000 UNITS/HR PRN Reason: Protocol Last Admin: 09/04/17 06:36 Dose: 1,400 units/hr, 28 mls/hr Insulin Aspart (Novolog Vial) 16 units SQ TIDAC [facility] Last Admin: 09/04/17 06:42 Dose: 16 units Insulin Detemir (Levemir Vial) 34 units SQ HS [facility] Last Admin: 09/03/17 22:59 Dose: 34 unit Metoprolol Succinate (Toprol Xl -) 100 mg PO DAILY [facility] Last Admin: 09/04/17 09:18 Dose: 100 mg Non-Formulary Medication (Daclatasvir Dihydrochloride [Daklinza]) 60 mg PO DAILY [facility] Pantoprazole Sodium (Protonix -) 40 mg PO DAILY [facility] Last Admin: 09/04/17 09:18 Dose: 40 mg Raltegravir (Isentress -) 400 mg PO BID [facility] Last Admin: 09/04/17 09:18 Dose: 400 mg Warfarin Sodium (Coumadin -) 5 mg PO DAILY@1800 [facility] Last Admin: 09/03/17 17:23 Dose: 5 mg - Objective Vital Signs: Vital Signs Temperature 98.2 F 09/04/17 08:52 Pulse Rate 97 H 09/04/17 08:52 Respiratory Rate 20 09/04/17 08:52 Blood Pressure 120/68 09/04/17 08:52 O2 Sat by Pulse Oximetry (%) 98 09/04/17 08:53 Constitutional: Yes: Well Nourished, Calm Eyes: Yes: WNL HENT: Yes: WNL Neck: Yes: WNL Cardiovascular: Yes: Regular Rate and Rhythm, S1, S2 Respiratory: Yes: CTA Bilaterally Gastrointestinal: Yes: Normal Bowel Sounds, Soft Extremities: Yes: WNL Edema: Yes Labs: CBC, BMP 09/04/17 08:10 09/04/17 08:10 INR, PTT INR 1.05 (0.82-1.09) 09/04/17 08:10 Problem List - Problems (1) DVT (deep venous thrombosis) Code(s): I82.409 - ACUTE EMBOLISM AND THOMBOS UNSP DEEP VN UNSP LOWER EXTREMITY Qualifiers: DVT location: upper extremity (2) CHF (congestive heart failure) Code(s): I50.9 - HEART FAILURE, UNSPECIFIED Qualifiers: Heart failure type: unspecified Heart failure chronicity: unspecified Qualified Code(s): I50.9 - Heart failure, unspecified (3) Acute pulmonary edema Code(s): J81.0 - ACUTE PULMONARY EDEMA (4) Cerebrovascular accident (CVA) Code(s): I63.9 - CEREBRAL INFARCTION, UNSPECIFIED Qualifiers: CVA mechanism: unspecified Qualified Code(s): I63.9 - Cerebral infarction, unspecified (5) Hyperlipidemia Code(s): E78.5 - HYPERLIPIDEMIA, UNSPECIFIED (6) Hypertriglyceridemia Code(s): E78.1 - PURE HYPERGLYCERIDEMIA (7) Intracranial hemorrhage Code(s): I62.9 - NONTRAUMATIC INTRACRANIAL HEMORRHAGE, UNSPECIFIED (8) Stented coronary artery Code(s): Z95.5 - PRESENCE OF CORONARY ANGIOPLASTY IMPLANT AND GRAFT (9) CAD (coronary artery disease) Code(s): I25.10 - ATHSCL HEART DISEASE OF [place] CORONARY ARTERY W/O ANG PCTRS (10) CKD (chronic kidney disease) Code(s): N18.9 - CHRONIC KIDNEY DISEASE, UNSPECIFIED Qualifiers: Chronic kidney disease stage: unspecified stage Qualified Code(s): N18.9 - Chronic kidney disease, unspecified (11) Diabetes Code(s): E11.9 - TYPE 2 DIABETES MELLITUS WITHOUT COMPLICATIONS (12) HIV (human immunodeficiency virus infection) Code(s): Z21 - ASYMPTOMATIC HUMAN IMMUNODEFICIENCY VIRUS INFECTION STATUS (13) H/O traumatic subdural hematoma Code(s): Z87.828 - PERSONAL HISTORY OF OTH (HEALED) PHYSICAL INJURY AND TRAUMA (14) Pulmonary hypertension Code(s): I27.20 - PULMONARY HYPERTENSION, UNSPECIFIED Assessment/Plan IMP ACUTE ON CHRONIC DIASTOLIC CHF IMPROVING RLE DVT CKD PULMONARY HTN H/O SDH H/O HIV H/O CVA ASHD S/P AL S/P STENT SHEN MILD AHI 13.7 PLAN AC O2 DAILY WTS F/U CHEST X-RAYS MONITOR LYTES,RENAL FUNCTION FORMAL SLEEP STUDIES OUTPATIENT DR HODGES Problem List - Problems (1) DVT (deep venous thrombosis) Code(s): I82.409 - ACUTE EMBOLISM AND THOMBOS UNSP DEEP VN UNSP LOWER EXTREMITY (2) CHF (congestive heart failure) Code(s): I50.9 - HEART FAILURE, UNSPECIFIED Qualifiers: Heart failure type: unspecified Heart failure chronicity: unspecified Qualified Code(s): I50.9 - Heart failure, unspecified (3) Acute pulmonary edema Code(s): J81.0 - ACUTE PULMONARY EDEMA (4) Cerebrovascular accident (CVA) Code(s): I63.9 - CEREBRAL INFARCTION, UNSPECIFIED Qualifiers: CVA mechanism: unspecified Qualified Code(s): I63.9 - Cerebral infarction, unspecified (5) Hyperlipidemia Code(s): E78.5 - HYPERLIPIDEMIA, UNSPECIFIED (6) Hypertriglyceridemia Code(s): E78.1 - PURE HYPERGLYCERIDEMIA (7) Intracranial hemorrhage Code(s): I62.9 - NONTRAUMATIC INTRACRANIAL HEMORRHAGE, UNSPECIFIED (8) Stented coronary artery Code(s): Z95.5 - PRESENCE OF CORONARY ANGIOPLASTY IMPLANT AND GRAFT (9) CAD (coronary artery disease) Code(s): I25.10 - ATHSCL HEART DISEASE OF [place] CORONARY ARTERY W/O ANG PCTRS (10) CKD (chronic kidney disease) Code(s): N18.9 - CHRONIC KIDNEY DISEASE, UNSPECIFIED Qualifiers: Chronic kidney disease stage: unspecified stage Qualified Code(s): N18.9 - Chronic kidney disease, unspecified (11) Diabetes Code(s): E11.9 - TYPE 2 DIABETES MELLITUS WITHOUT COMPLICATIONS (12) HIV (human immunodeficiency virus infection) Code(s): Z21 - ASYMPTOMATIC HUMAN IMMUNODEFICIENCY VIRUS INFECTION STATUS (13) H/O traumatic subdural hematoma Code(s): Z87.828 - PERSONAL HISTORY OF OTH (HEALED) PHYSICAL INJURY AND TRAUMA (14) Pulmonary hypertension Code(s): I27.20 - PULMONARY HYPERTENSION, UNSPECIFIED
--- NOTE | 2017-09-04 11:53 | PN ---
Teaching Attending Note Name of Resident: Henny Peraza ATTENDING PHYSICIAN STATEMENT I saw and evaluated the patient. I reviewed the resident's note and discussed the case with the resident. I agree with the resident's findings and plan as documented. SUBJECTIVE:asymptomatic. denies CP, SOB, fever, chills, N/V/C/D noted to be sleeping everytime entering the room. awakes easily OBJECTIVE: Last Vital Signs Temp Pulse Resp BP Pulse Ox 98.2 F 97 H 20 120/68 98 09/04/17 08:52 09/04/17 08:52 09/04/17 08:52 09/04/17 08:52 09/04/17 08:53 General NAD CV S1 S2 RRR no murmur/rub/gallop Lungs CTA B/L no wheezing/rales/rhonchi Extremities RLE trace pitting edema, no calf tenderness ASSESSMENT AND PLAN: 66 yo F with acute on chronic diastolic HF exacerbation in the setting of not taking her lasix and right toe pain and swelling 1. acute on chronic diastolic heart failure exacerbation- now euvolemic. lasix being held. concern was raised for PE due to RLE DVT however VQ scan negative. will cont daily weights. 2. RLE near occlusive Popliteal vein DVT- on heparin ggt. coumadin bridge Day # 2 today. counselled on risks of systemic anticoagulation. need for medication and food compliance. dietary consult to educate. advised need for frequent labs and monitoring. verbalized understanding 3. NÉSTOR on CKD stage III- with nephrotic range proteinuria. Cr stabilized. would benefit from renal bx as has multiple of risk factors however pt requires anticoagulation. nephro on board 4. CAD s/p PCI in 03/2016 and RCA x 2 in 12/2016- on asa/plavix. recent stent placement. as per cardio should be on triple therapy for 1 year. 5. Hyperlipidemia- increase to high intensity statin 6. Obesity 7. IDDM, poorly controlled-improved here. cont levemir and novolog pre-meals 8. HTN-improved. cont to adjust medication as needed 9. 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 11. 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 DVT ppx- hep ggt-coumadin bridge
--- NOTE | 2017-09-04 12:12 | PN ---
Progress Note, Physician History of Present Illness: Patient is a 66 year old black female with a significant past medical history of diastolic CHF, MS (s/p stent placement 03/2016; additional stent about 3 months ago at [place], [place]), IDDM, HTN, HLD, obesity, HIV and small SDH 2016, who presents to the ED with complaints of difficulty breathing that began 5 days ago. Patient reports visiting her friend in [place] when she ran out of her medication 5 days go. She reports experiencing gradual shortness of breath over the 5 days until she could no longer bear it. Patient reports experiencing chronic cough as well as increased bilateral leg edema since taking her medication. Denies chest pain, Nausea, vomiting. Denies contact with sick individual, out of state travelling. Denies any other symptoms. Sedentary lifestyle. Allergies: None Social history: No smoking. No alcohol. No illicit drugs. Surgical history: coronary stents 2015 and 2017 - Current Medication List Current Medications: Active Medications Amlodipine Besylate (Norvasc -) 5 mg PO DAILY [facility] Last Admin: 09/04/17 09:18 Dose: 5 mg Aspirin (Asa -) 81 mg PO DAILY [facility] Last Admin: 09/04/17 09:17 Dose: 81 mg Atorvastatin Calcium (Lipitor -) 80 mg PO HS [facility] Last Admin: 09/03/17 22:58 Dose: 80 mg Benzocaine/Menthol (Cepacol Lozenge -) 1 each MM Q2H PRN PRN Reason: SORE THROAT Clopidogrel Bisulfate (Plavix -) 75 mg PO DAILY [facility] Last Admin: 09/04/17 09:18 Dose: 75 mg Darunavir (Prezista -) 600 mg PO BID [facility] Last Admin: 09/04/17 09:18 Dose: 600 mg Etravirine (Intelence -) 200 mg PO BID [facility] Last Admin: 09/04/17 09:17 Dose: 200 mg Gabapentin (Neurontin -) 400 mg PO TID [facility] Last Admin: 09/04/17 06:33 Dose: 400 mg Heparin Sodium (Porcine) (Heparin -) 1,000 unit IVPUSH PRN PRN PRN Reason: Heparin Last Admin: 08/31/17 08:44 Dose: 1,000 unit Heparin Sodium (Porcine) (Heparin -) 5,000 unit IVPUSH PRN PRN PRN Reason: Heparin Last Admin: 09/01/17 08:44 Dose: 5,000 unit HEPARIN SOD,PORK IN 0.45% NACL (Heparin-1/2ns 25,000 Units/500) 25,000 units in 500 mls @ 20 mls/hr IVPB TITR [facility]; 1,000 UNITS/HR PRN Reason: Protocol Last Admin: 09/04/17 12:02 Dose: 1,400 units/hr, 28 mls/hr Insulin Aspart (Novolog Vial) 16 units SQ TIDAC [facility] Last Admin: 09/04/17 06:42 Dose: 16 units Insulin Detemir (Levemir Vial) 34 units SQ HS [facility] Last Admin: 09/03/17 22:59 Dose: 34 unit Metoprolol Succinate (Toprol Xl -) 100 mg PO DAILY [facility] Last Admin: 09/04/17 09:18 Dose: 100 mg Non-Formulary Medication (Daclatasvir Dihydrochloride [Daklinza]) 60 mg PO DAILY [facility] Pantoprazole Sodium (Protonix -) 40 mg PO DAILY [facility] Last Admin: 09/04/17 09:18 Dose: 40 mg Raltegravir (Isentress -) 400 mg PO BID [facility] Last Admin: 09/04/17 09:18 Dose: 400 mg Warfarin Sodium (Coumadin -) 5 mg PO DAILY@1800 [facility] Last Admin: 09/03/17 17:23 Dose: 5 mg - Objective Vital Signs: Vital Signs Temperature 98.2 F 09/04/17 08:52 Pulse Rate 97 H 09/04/17 08:52 Respiratory Rate 20 09/04/17 08:52 Blood Pressure 120/68 09/04/17 08:52 O2 Sat by Pulse Oximetry (%) 98 09/04/17 08:53 Eyes: Yes: WNL, Conjunctiva Clear, EOM Intact HENT: Yes: WNL, Atraumatic, Normocephalic Neck: Yes: WNL, Supple, Trachea Midline Cardiovascular: Yes: WNL, Regular Rate and Rhythm Respiratory: Yes: WNL, Regular, CTA Bilaterally Gastrointestinal: Yes: WNL, Normal Bowel Sounds Genitourinary: Yes: WNL Musculoskeletal: Yes: WNL Extremities: Yes: WNL Edema: No Integumentary: Yes: WNL Neurological: Yes: WNL, Alert, Oriented ...Motor Strength: WNL Psychiatric: Yes: WNL Labs: CBC, BMP 09/04/17 08:10 09/04/17 08:10 INR, PTT INR 1.05 (0.82-1.09) 09/04/17 08:10 Assessment/Plan Problems Problems (1) HTN (hypertension) Assessment/Plan: On metorpolol succinate ( 100 mg daily); on amlodipine. If renal function improves, add ACEI or ARB for HTN and renal protection with DM (and may stop amlodipine then if BP falls too precipitously). (ECHO mildly reduced LVEF, with ?noncompaction of LV. Code(s): I10 - ESSENTIAL (PRIMARY) HYPERTENSION Qualifiers: Hypertension type: unspecified Qualified Code(s): I10 - Essential (primary ) hypertension (2) Acute on chronic systolic and diastolic heart failure, NYHA class 2 Assessment/Plan: Increased metoprolol. ?Noncompaction syndrome (LV); f/u cardiac records, Consider cardiac MRI as oupatient, if not recently done. Renal dysfunction precludes use of ACEI or ARB presnetly. Code(s): I50.43 - ACUTE ON CHRONIC COMBINED SYSTOLIC AND DIASTOLIC HRT FAIL (3) DVT (deep venous thrombosis) Assessment/Plan: DVT of lower extremity. Unable to do CTA to r/o PE due to renal dysfunction. Start anticoagulation -warfarin Unless evidnec of bleed or other hemtologic abnormalities,recommend continuing with ASA and clopidogrel (CAD-->DEStents in 2015 and 12/2016). Code(s): I82.409 - ACUTE EMBOLISM AND THOMBOS UNSP DEEP VN UNSP LOWER EXTREMITY Qualifiers: DVT location: upper extremity (4) Gout Code(s): M10.9 - GOUT, UNSPECIFIED (5) Obesity Code(s): E66.9 - OBESITY, UNSPECIFIED (6) Sleep apnea Code(s): G47.30 - SLEEP APNEA, UNSPECIFIED (7) CAD (coronary artery disease) Code(s): I25.10 - ATHSCL HEART DISEASE OF [place] CORONARY ARTERY W/O ANG PCTRS (8) CKD (chronic kidney disease) Code(s): N18.9 - CHRONIC KIDNEY DISEASE, UNSPECIFIED Qualifiers: Chronic kidney disease stage: unspecified stage Qualified Code(s): N18.9 - Chronic kidney disease, unspecified (9) Diabetes Code(s): E11.9 - TYPE 2 DIABETES MELLITUS WITHOUT COMPLICATIONS (10) HIV (human immunodeficiency virus infection) Code(s): Z21 - ASYMPTOMATIC HUMAN IMMUNODEFICIENCY VIRUS INFECTION STATUS (11) 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
--- NOTE | 2017-09-04 13:06 | PN ---
Progress Note, Physician History of Present Illness: Examined and seen at bedside. Pt offered no complaint. She inquired about renal biopsy. Otherwise no acute events noted overnight. - Current Medication List Current Medications: Active Medications Amlodipine Besylate (Norvasc -) 5 mg PO DAILY [facility] Last Admin: 09/04/17 09:18 Dose: 5 mg Aspirin (Asa -) 81 mg PO DAILY [facility] Last Admin: 09/04/17 09:17 Dose: 81 mg Atorvastatin Calcium (Lipitor -) 80 mg PO HS [facility] Last Admin: 09/03/17 22:58 Dose: 80 mg Benzocaine/Menthol (Cepacol Lozenge -) 1 each MM Q2H PRN PRN Reason: SORE THROAT Clopidogrel Bisulfate (Plavix -) 75 mg PO DAILY [facility] Last Admin: 09/04/17 09:18 Dose: 75 mg Darunavir (Prezista -) 600 mg PO BID [facility] Last Admin: 09/04/17 09:18 Dose: 600 mg Etravirine (Intelence -) 200 mg PO BID [facility] Last Admin: 09/04/17 09:17 Dose: 200 mg Gabapentin (Neurontin -) 400 mg PO TID [facility] Last Admin: 09/04/17 06:33 Dose: 400 mg Heparin Sodium (Porcine) (Heparin -) 1,000 unit IVPUSH PRN PRN PRN Reason: Heparin Last Admin: 08/31/17 08:44 Dose: 1,000 unit Heparin Sodium (Porcine) (Heparin -) 5,000 unit IVPUSH PRN PRN PRN Reason: Heparin Last Admin: 09/01/17 08:44 Dose: 5,000 unit HEPARIN SOD,PORK IN 0.45% NACL (Heparin-1/2ns 25,000 Units/500) 25,000 units in 500 mls @ 20 mls/hr IVPB TITR [facility]; 1,000 UNITS/HR PRN Reason: Protocol Last Admin: 09/04/17 12:02 Dose: 1,400 units/hr, 28 mls/hr Insulin Aspart (Novolog Vial) 16 units SQ TIDAC [facility] Last Admin: 09/04/17 12:18 Dose: 16 units Insulin Detemir (Levemir Vial) 34 units SQ HS [facility] Last Admin: 09/03/17 22:59 Dose: 34 unit Metoprolol Succinate (Toprol Xl -) 100 mg PO DAILY [facility] Last Admin: 09/04/17 09:18 Dose: 100 mg Non-Formulary Medication (Daclatasvir Dihydrochloride [Daklinza]) 60 mg PO DAILY [facility] Pantoprazole Sodium (Protonix -) 40 mg PO DAILY [facility] Last Admin: 09/04/17 09:18 Dose: 40 mg Raltegravir (Isentress -) 400 mg PO BID [facility] Last Admin: 09/04/17 09:18 Dose: 400 mg Warfarin Sodium (Coumadin -) 5 mg PO DAILY@1800 [facility] Last Admin: 09/03/17 17:23 Dose: 5 mg - Objective Vital Signs: Vital Signs Temperature 98.2 F 09/04/17 08:52 Pulse Rate 97 H 09/04/17 08:52 Respiratory Rate 20 09/04/17 08:52 Blood Pressure 120/68 09/04/17 08:52 O2 Sat by Pulse Oximetry (%) 98 09/04/17 08:53 Constitutional: Yes: No Distress, Calm Eyes: Yes: Other (R eye blind) HENT: Yes: Atraumatic, Normocephalic Cardiovascular: Yes: Regular Rate and Rhythm, Tachycardia, S1, S2 Respiratory: Yes: CTA Bilaterally Gastrointestinal: Yes: Normal Bowel Sounds, Soft Extremities: No: Calf Tenderness Edema: Yes Edema: LLE: Trace, RLE: 2+ Peripheral Pulses WNL: Yes Labs: CBC, BMP 09/04/17 08:10 09/04/17 08:10 INR, PTT INR 1.05 (0.82-1.09) 09/04/17 08:10 Impression/Plan Impression/Plan: 66 yo F h/o HFpEF, [place] s/p stent, IDDM, HTN, HLD, HIV on HAART, subdural hematoma admitted to the hospital for CHF exacerbation, DVT, and found have to NÉSTOR on CKD. NÉSTOR and CKD HIV on HAART IDDM HTN HLD Acute on chronic diastolic heart failure exacerbation h/o SDH h/o [place] - Benefits and risks of renal bx conveyed to the patient - Cr stabilized - Likely cardiorenal syndrome 2/2 acute on chronic heart failure exacerbation - Cont. CKD workup - Cont. to hold lasix - Cont. to re-assess her fluid status daily and trend Cr - Avoid nephrotoxins Hola Cummins PGY2 Pager: [phone] Visit type - Emergency Visit Emergency Visit: No - New Patient This patient is new to me today: No - Critical Care Critical Care patient: No - Discharge Referral Referred to [facility] Med P.C.: No
--- NOTE | 2017-09-04 13:12 | PN ---
Teaching Attending Note Name of Resident: Hola Cummins (Nephrology) ATTENDING PHYSICIAN STATEMENT I saw and evaluated the patient. I reviewed the resident's note and discussed the case with the resident. I agree with the resident's findings and plan as documented. Renal Pt seen and examined at bedside. She denies shortness of breath. Current Medications Generic Name Dose Route Start Last Admin Trade Name Freq PRN Reason Stop Dose Admin Amlodipine Besylate 5 mg 08/30/17 10:00 09/04/17 09:18 Norvasc - PO 5 mg DAILY [facility] Administration Aspirin 81 mg 08/30/17 10:00 09/04/17 09:17 Asa - PO 81 mg DAILY [facility] Administration Atorvastatin Calcium 80 mg 08/29/17 22:00 09/03/17 22:58 Lipitor - PO 80 mg HS [facility] Administration Benzocaine/Menthol 1 each 09/02/17 16:42 Cepacol Lozenge - MM Q2H PRN SORE THROAT Clopidogrel Bisulfate 75 mg 08/30/17 10:00 09/04/17 09:18 Plavix - PO 75 mg DAILY [facility] Administration Darunavir 600 mg 08/29/17 22:00 09/04/17 09:18 Prezista - PO 600 mg BID [facility] Administration Etravirine 200 mg 08/29/17 22:00 09/04/17 09:17 Intelence - PO 200 mg BID [facility] Administration Gabapentin 400 mg 08/29/17 22:00 09/04/17 06:33 Neurontin - PO 400 mg TID [facility] Administration Heparin Sodium (Porcine) 1,000 unit 08/30/17 09:03 08/31/17 08:44 Heparin - IVPUSH 1,000 unit PRN PRN Administration Heparin Heparin Sodium (Porcine) 5,000 unit 08/30/17 09:03 09/01/17 08:44 Heparin - IVPUSH 5,000 unit PRN PRN Administration Heparin HEPARIN SOD,PORK IN 0.45% NACL 25,000 units in 500 mls @ 20 mls/hr 08/30/17 10 :00 09/04/17 12:02 Heparin-1/2ns 25,000 Units/500 IVPB 1,400 units/hr TITR [facility] 28 mls/hr Protocol Administration 1,000 UNITS/HR Insulin Aspart 16 units 09/03/17 14:00 05/16/18 12:18 Novolog Vial SQ 16 units TIDAC [facility] Administration Insulin Detemir 34 units 08/29/17 22:00 09/03/17 22:59 Levemir Vial SQ 34 unit HS [facility] Administration Metoprolol Succinate 100 mg 08/31/17 10:00 09/04/17 09:18 Toprol Xl - PO 100 mg DAILY [facility] Administration Non-Formulary Medication 60 mg 08/30/17 10:00 Daclatasvir Dihydrochloride [Daklinza] PO DAILY [facility] Pantoprazole Sodium 40 mg 08/30/17 16:45 09/04/17 09:18 Protonix - PO 40 mg DAILY [facility] Administration Raltegravir 400 mg 08/29/17 22:00 09/04/17 09:18 Isentress - PO 400 mg BID [facility] Administration Warfarin Sodium 5 mg 09/03/17 18:00 09/03/17 17:23 Coumadin - PO 5 mg DAILY@1800 [facility] Administration Last Vital Signs Temp Pulse Resp BP Pulse Ox 98.2 F 97 H 20 120/68 98 09/04/17 08:52 09/04/17 08:52 09/04/17 08:52 09/04/17 08:52 09/04/17 08:53 Laboratory Tests 08/30/17 09/03/17 09/03/17 06:45 15:00 15:00 Hemoglobin A1c % 10.1 H MICHELLE M-Jagdish Pending MERY Screen Pending c-ANCA Pending Proteinase 3 (PR3) Pending p-ANCA Pending Atypical p-ANCA Pending Myeloperoxidase Ab Pending Double Strand DNA Ab Pending cardio s1s2 reg pulm clear GI soft, obese ext right leg edema neuro awake and alert skin neg rash Impression 1. NÉSTOR 2. nephrotic range proteinuria 3. CHF 4. DVT 5. HIV 6. DM 7. subdural hematoma 8. CAD Plan - renal workup is in progress - repeat ua and prt to market research specialist ratio - we again discussed kidney biopsy today - will need better glucose control as a1c is greater than 10 Problem List - Problems (1) Acute on chronic diastolic CHF (congestive heart failure) Code(s): I50.33 - ACUTE ON CHRONIC DIASTOLIC (CONGESTIVE) HEART FAILURE (2) NÉSTOR (acute kidney injury) Code(s): N17.9 - ACUTE KIDNEY FAILURE, UNSPECIFIED (3) HIV (human immunodeficiency virus infection) Code(s): Z21 - ASYMPTOMATIC HUMAN IMMUNODEFICIENCY VIRUS INFECTION STATUS (4) HTN (hypertension) Code(s): I10 - ESSENTIAL (PRIMARY) HYPERTENSION Qualifiers: Hypertension type: unspecified Qualified Code(s): I10 - Essential (primary ) hypertension
[2017-09-04 14:35] LABS: URINE APPEARANCE CLEAR; URINE BILIRUBIN NEGATIVE (<2.0 mg/dL); URINE BLOOD NEGATIVE (NEGATIVE); URINE COLOR LTYELLOW; URINE GLUCOSE (UA) 1+ (NEGATIVE); URINE KETONE NEGATIVE (NEGATIVE); URINE LEUK ESTERASE TRACE (NEGATIVE); URINE NITRITE NEGATIVE (NEGATIVE); URINE UROBILINOGEN NEGATIVE mg/dL (0.2-1.0)
[2017-09-04 14:37] LABS: URINE PROTEIN 3+ (NEGATIVE)
[2017-09-04] MEDS: WARFARIN NA 5 MG TABLET (UD) PO SCH (17:35)
[2017-09-04] MEDS: ATORVASTATIN CA 80 MG TABLET (FP) PO SCH (21:50)
[2017-09-04] MEDS: INSULIN DETEMIR 100 UNITS/ML MDV SQ SCH (21:51)
[2017-09-05] MEDS: HEPARIN SOD,PORK IN 0.45% NACL 25,000 UNITS/500 ML INFUS.BAG IVPB SCH ×3 (02:46→22:50)
[2017-09-05] MEDS: GABAPENTIN 400 MG CAPSULE (FP) PO SCH ×3 (06:33→21:04)
[2017-09-05] MEDS ORDERED: INSULIN DETEMIR 100 UNITS/ML MDV SQ ONE ×3 (07:35→22:00)
--- NOTE | 2017-09-05 08:00 | PN ---
Physical Exam: SUBJECTIVE: Patient seen and examined. No new c/o overnight or this am. No chest pain, SOB, abdominal pain or fevers. OBJECTIVE: Vital Signs Period Temp Pulse Resp BP Sys/Stallings Pulse Ox Last 24 Hr 98 F-98.8 F 87-97 18-20 120-147/68-86 97-98 Vital Signs Temp 98.1 F 09/05/17 06:00 Pulse 87 09/05/17 06:00 Resp 20 09/05/17 06:00 BP 144/78 09/05/17 06:00 Pulse Ox 97 09/04/17 21:00 Intake & Output 09/04/17 09/04/17 09/05/17 11:59 23:59 11:59 Intake Total 936 904 336 Output Total 1300 400 Balance 936 -396 -64 Weight 104.871 kg 104.797 kg Intake: IV 336 224 336 HEPARIN-1/2NS 25,000 336 224 336 UNITS/500 25,000 units In 500 ml @ 1,000 UNITS/HR 20 mls/hr IVPB TITR [facility] Rx#:[id number] Oral 600 680 Output: Urine 1300 400 Void 1300 400 Other: Voiding Method Toilet Bedside Commode Bedside Commode # Unmeasured Voids Void 3 1 Bowel Movement No No Weight Measurement Method Standing Scale Standing Scale GENERAL: The patient is awake, alert, and fully oriented, in no acute distress. NECK: full range of motion, supple. LUNGS: Breath sounds equal, clear to auscultation bilaterally, no wheezes, no crackles HEART: Regular rate and rhythm, S1, S2 ABDOMEN: Soft, nontender, nondistended, normoactive bowel sounds EXTREMITIES: 2+ pulses, warm, well-perfused, R leg edema 1+. NEUROLOGICAL: AAOx3, no facial droop. 5/5 muscle strength. Normal speech Laboratory Results - last 24 hr 09/04/17 09/04/17 09/04/17 08:10 08:10 08:10 WBC 6.8 RBC 3.26 L Hgb 10.0 L Hct 30.4 L MCV 93.3 MCH 30.8 MCHC 33.0 RDW 14.8 Plt Count 196 MPV 9.5 Neutrophils % 61.1 Lymphocytes % 24.3 Monocytes % 9.6 Eosinophils % 4.3 Basophils % 0.7 PT with INR 11.90 INR 1.05 PTT (Actin FS) Sodium 141 Potassium 3.5 Chloride 107 Carbon Dioxide 28 Anion Gap 6 L BUN 23 H Creatinine 2.2 H Creat Clearance w eGFR 22.20 POC Glucometer Random Glucose 111 H Calcium 8.4 L Phosphorus 2.6 Magnesium 2.0 Total Bilirubin 0.7 D AST 13 L ALT 14 Alkaline Phosphatase 78 Total Protein 6.6 Albumin 2.5 L Urine Color Urine Appearance Urine pH Ur Specific [place] Urine Protein Urine Glucose (UA) Urine Ketones Urine Blood Urine Nitrite Urine Bilirubin Urine Urobilinogen Ur Leukocyte Esterase Urine WBC (Auto) Urine RBC (Auto) 09/04/17 09/04/17 09/04/17 08:20 12:16 13:40 WBC RBC Hgb Hct MCV MCH MCHC RDW Plt Count MPV Neutrophils % Lymphocytes % Monocytes % Eosinophils % Basophils % PT with INR INR PTT (Actin FS) 57.9 H Sodium Potassium Chloride Carbon Dioxide Anion Gap BUN Creatinine Creat Clearance w eGFR POC Glucometer 205 Random Glucose Calcium Phosphorus Magnesium Total Bilirubin AST ALT Alkaline Phosphatase Total Protein Albumin Urine Color Ltyellow Urine Appearance Clear Urine pH 7.0 Ur Specific [place] 1.009 Urine Protein 3+ H Urine Glucose (UA) 1+ H Urine Ketones Negative Urine Blood Negative Urine Nitrite Negative Urine Bilirubin Negative Urine Urobilinogen Negative Ur Leukocyte Esterase Trace Urine WBC (Auto) 6 Urine RBC (Auto) None 09/04/17 09/04/17 09/05/17 17:33 21:27 06:32 WBC RBC Hgb Hct MCV MCH MCHC RDW Plt Count MPV Neutrophils % Lymphocytes % Monocytes % Eosinophils % Basophils % PT with INR INR PTT (Actin FS) Sodium Potassium Chloride Carbon Dioxide Anion Gap BUN Creatinine Creat Clearance w eGFR POC Glucometer 265 201 151 Random Glucose Calcium Phosphorus Magnesium Total Bilirubin AST ALT Alkaline Phosphatase Total Protein Albumin Urine Color Urine Appearance Urine pH Ur Specific [place] Urine Protein Urine Glucose (UA) Urine Ketones Urine Blood Urine Nitrite Urine Bilirubin Urine Urobilinogen Ur Leukocyte Esterase Urine WBC (Auto) Urine RBC (Auto) Active Medications Generic Name Dose Route Start Last Admin Trade Name Freq PRN Reason Stop Dose Admin Amlodipine Besylate 5 mg 08/30/17 10:00 09/04/17 09:18 Norvasc - PO 5 mg DAILY [facility] Administration Aspirin 81 mg 08/30/17 10:00 09/04/17 09:17 Asa - PO 81 mg DAILY [facility] Administration Atorvastatin Calcium 80 mg 08/29/17 22:00 09/04/17 21:50 Lipitor - PO 80 mg HS [facility] Administration Benzocaine/Menthol 1 each 09/02/17 16:42 Cepacol Lozenge - MM Q2H PRN SORE THROAT Clopidogrel Bisulfate 75 mg 08/30/17 10:00 09/04/17 09:18 Plavix - PO 75 mg DAILY [facility] Administration Darunavir 600 mg 08/29/17 22:00 09/04/17 21:52 Prezista - PO 600 mg BID [facility] Administration Etravirine 200 mg 08/29/17 22:00 09/04/17 21:51 Intelence - PO 200 mg BID [facility] Administration Gabapentin 400 mg 08/29/17 22:00 09/05/17 06:33 Neurontin - PO 400 mg TID [facility] Administration Heparin Sodium (Porcine) 1,000 unit 08/30/17 09:03 08/31/17 08:44 Heparin - IVPUSH 1,000 unit PRN PRN Administration Heparin Heparin Sodium (Porcine) 5,000 unit 08/30/17 09:03 09/01/17 08:44 Heparin - IVPUSH 5,000 unit PRN PRN Administration Heparin HEPARIN SOD,PORK IN 0.45% NACL 25,000 units in 500 mls @ 20 mls/hr 08/30/17 10 :00 09/05/17 02:46 Heparin-1/2ns 25,000 Units/500 IVPB 1,400 units/hr TITR [facility] 28 mls/hr Protocol Administration 1,000 UNITS/HR Insulin Aspart 1 vial 09/05/17 11:00 Novolog Vial Sliding Scale - SQ ACHS [facility] Protocol Insulin Detemir 34 units 08/29/17 22:00 09/04/17 21:51 Levemir Vial SQ 34 unit HS [facility] Administration Insulin Detemir 15 units 09/05/17 07:35 Levemir Vial SQ 09/05/17 07:36 ONCE ONE Metoprolol Succinate 100 mg 08/31/17 10:00 09/04/17 09:18 Toprol Xl - PO 100 mg DAILY [facility] Administration Non-Formulary Medication 60 mg 08/30/17 10:00 Daclatasvir Dihydrochloride [Daklinza] PO DAILY [facility] Pantoprazole Sodium 40 mg 08/30/17 16:45 09/04/17 09:18 Protonix - PO 40 mg DAILY [facility] Administration Raltegravir 400 mg 08/29/17 22:00 09/04/17 21:51 Isentress - PO 400 mg BID [facility] Administration Warfarin Sodium 5 mg 09/03/17 18:00 09/04/17 17:35 Coumadin - PO 5 mg DAILY@1800 [facility] Administration V/Q scan done on 09/03/17-no evidence of PE ASSESSMENT/PLAN: Pt is a 66 yo F with PMHx of diastolic CHF(last ECHO-07/07), [place] (s/p stent placement 03/2016, 12/2016), IDDM, HTN, HLD, HIV and small SDH 04/2016, recent admission for PNA (07/09) presenting with a 4 day hx of SOB #Right foot swelling - DVT positive Bilateral pedal edema R>L Ambulates with difficulty, recent travel by air Duplex US R LE shows DVT Xray R foot-AP/Lateral- no acute pathology Lasix held (does not look volume overloaded) Continue heparin gtt- dose according to protocol, subtherapeutic in the am aPTT CBC Escalated coumadin to 7.5mg For Neuro and cardio final decison on triple anticoagulation #R/O PE Continue iv heparin gtt V/Q scan done see above- negative for PE Dr Godinez consulted- appreciate recommendations Cont heparin with coumadin 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 She will need triple anticoagulation for up to 1 year or at least for a few months because of second stent 12/2016 #Acute on chronic CHF exacerbation: Not volume overload ed at this time-Lasix held Likely due to medication non compliance Pt diagnosed with diastolic CHF - ECHO 07/07 Repeat ECHO- see above, will need MRI as an outpatient BNP at presentation-3049.91 CXR at presentation- diffuse pulmonary vascular congestion with possible L pleural effusion Repeat CXR- resolving Hold lasix- with rising Cr- Daily weights Salt restriction- less than 1200mg per daily Strict ins and outs To consider follow up measures addressing compliance on discharge EKG- no features of ischemia- old T waves Negative trop x3 Continue Toprol XL 50mg daily Dr Hsieh on board- increased toprol to 100mg To continue amlodipine for now until renal function improves for replacement with ARBs or ACEI Pending immunologic work up by nephro #small SDH 04/2016 No obvious lateralizing signs/ residual deficits Cont ASA Cont metoprolol D/W Dr Medina -considering previous bleed, now on heparin gtt for possible PE , pt should get CT head w/o contrast- shows chronic infarcts Neurol- Dr Zarco on board- appreciate recs- No acute bleed, risk of bleed exists but is aware of current DVT and need for anticoagulation- suggested plavix removed considering pt risks but will follow for final resolution between consultants Continue coumadin for DVT (in addition to ASA and clopidogrel- S/p stents)- D /W neuro and cardio Will follow #NÉSTOR on CKD: Cr- 1.7 on presentation D/W Dr Gomez- Marked proteinuria- likely secondary to HIV/DM/HTN agrees with holding lasix for now. does not look overloaded and cr- is improving HAART may not be contributory May currently be at her baseline Monitor BMP Lovenox stopped Avoid nephrotoxic drugs Dr Gomez on the case- appreciate recs Pt may benefit from renal biopsy after anticoagulation period if willing, although she has multiple likely etiology for glomerulonephrosis # Hx of LA (s/p stent placement 03/2016, 12/2016) Cont daily ASA 81mg Cont plavix Toprol XL 50mg daily #IDDM SQ Insulin Detemir 34U HS Cont home dose 16U TIDAC- regular insulin #Diabetic neuropathy Gabapentin 400 tid #HTN Amlodipine 5mg daily Toprol XL 100mg daily #HLD Lipitor 80mg PO HS #HIV Daklinza 60mg PO daily Raltegravir 400 mg PO BID Darunavir 600mg PO bid Etravirine 200mg bid Medications reconciled #Chronic anemia Iron Polysac/Iron Heme/FA/B12 PO ACBK #L Abdominal pain with epigastric tenderness R/O atypical chest pain vs GERD Resolved EKG stat- Likely new T wave inversions Repeat trops- negative x3 Tabs protonix 40mg daily Monitor #FEN No IVF at this time Monitor electrolytes and replete as needed Low salt/diabetic diet # Dispo: Med Surg Pending therapeutic coumadin dose escalated to 7.5mg Visit type - Emergency Visit Emergency Visit: Yes ED Registration Date: 08/29/17 Care time: The patient presented to the Emergency Department on the above date and was hospitalized for further evaluation of their emergent condition. - New Patient This patient is new to me today: No - Critical Care Critical Care patient: No - Discharge Referral Referred to [facility] Med [facility].: No
[2017-09-05] MEDS: INSULIN (NOVOLOG) ASPART 100 UNITS/ML 10ML VIAL SQ SCH (08:03)
[2017-09-05] MEDS ORDERED: HEPARIN NA (PORCINE) 5,000 UNITS/ML 1ML VIAL IVPUSH PRN ×2 (08:09)
[2017-09-05 08:12] LABS: BASO % 0.9 % (0-2.0); EOS % 3.7 % (0-4.5); HEMATOCRIT 28.3 % (32.4-45.2); HEMOGLOBIN 9.3 GM/dL (10.7-15.3); LYMPH % 23.7 % (8-40); MCH 30.7 pg (25.7-33.7); MCHC 32.9 g/dl (32.0-36.0); MEAN CELL VOLUME 93.3 fl (80-96); MEAN PLT VOLUME 10.1 fl (7.5-11.1); MONO % 11.6 % (3.8-10.2); NEUT % 60.1 % (42.8-82.8); PLATELET COUNT 183 K/MM3 (134-434); RBC 3.03 M/mm3 (3.60-5.2); RDW 15.1 % (11.6-15.6); WHITE BLOOD COUNT 6.2 K/mm3 (4.0-10.0)
[2017-09-05 08:30] LABS: INR 1.1 (0.82-1.09); PROTHROMBIN TIME (PATIENT) 12.4 SEC (9.7-13.0)
[2017-09-05 08:37] LABS: ALBUMIN 2.3 g/dl (3.4-5.0); ANION GAP 6 (8-16); BLOOD UREA NITROGEN 26 mg/dL (7-18); CALCIUM 8.5 mg/dL (8.5-10.1); CHLORIDE 106 mmol/L (98-107); CO2 30 mmol/L (21-32); CREATININE 2.2 mg/dL (0.55-1.02); PHOSPHOROUS 3.5 mg/dL (2.5-4.9); POTASSIUM 3.7 mmol/L (3.5-5.1); SGOT/AST 11 U/L (15-37); SGPT/ALT 12 U/L (12-78); SODIUM 142 mmol/L (136-145)
[2017-09-05 08:44] LABS: ALK PHOS 69 U/L (45-117); BILIRUBIN,TOTAL 1.2 mg/dL (0.2-1.0); GLUCOSE,RANDOM 144 mg/dL (74-106); MAGNESIUM 1.9 mg/dL (1.8-2.4); TOT PROT 6.2 g/dl (6.4-8.2)
[2017-09-05] MEDS: CLOPIDOGREL BISULFATE 75 MG TABLET (FP) PO SCH (09:12)
[2017-09-05] MEDS: ASPIRIN 81 MG CHEWABLE TABLETS PO SCH (09:12)
[2017-09-05] MEDS: amLODIPine BESYLATE 5 MG TABLET (FP) PO SCH (09:12)
[2017-09-05] MEDS: PANTOPRAZOLE 40 MG TABLET (FP) PO SCH (09:13)
[2017-09-05] MEDS: DARUNAVIR ETHANOLATE 600 MG TAB PO SCH ×2 (09:13→21:04)
[2017-09-05] MEDS: RALTEGRAVIR POTASSIUM 400 MG TAB PO SCH ×2 (09:13→21:04)
[2017-09-05] MEDS: ETRAVIRINE 100 MG TABLET PO SCH ×2 (09:13→21:05)
[2017-09-05] MEDS: HEPARIN NA (PORCINE) 5,000 UNITS/ML 1ML VIAL IVPUSH PRN (09:33)
--- NOTE | 2017-09-05 09:57 | PN ---
Progress Note (short form) - Note Progress Note: Neurology HISTORY OF PRESENT ILLNESS: 66 yo F with PMHx of diastolic CHF(last ECHO-07/07), [place] (s/p stent placement 2015, 12/2016), IDDM, HTN, HLD, HIV and small SDH 04/2016, recent admission for PNA (07/09) presenting with a 4 day hx of SOB, worse on exertion, worsening orthopnea and PND,( has been unable to sleep for days), weight gain (30lbs in one month) and bilateral pedal edema. Per notes, she said she has been gaining weight despite regular exercise in the gym. 4 days prior to admission she reported running out of her lasix (40mg daily) and was unable to reach her primary care physician to refill her medications and thus develop respiratory difficulty and presented to the hospital. CXR noted to have diffuse pulmonary vascular congestion with possible L pleural effusion. I was consulted regarding prior subdural hematoma as patient with reported DVT and for AC. CT head completed and reviewed and no acute changes noted. Evidence of prior craniotomy in R frontal region. No new neurologic deficits. Patient started on AC, denies any issues. No bleeding. No change in mental status, appears at baseline neurologic status. She is on dual antiplatelet as well and I would advise that as INR approaches 2, her Plavix should be held to minimize risk for bleed. She can continue ASA 81mg for antiplalelet benefit. If AC stopped in future, plavix 75 can be restarted Active Medications Amlodipine Besylate (Norvasc -) 5 mg PO DAILY [facility] Last Admin: 09/05/17 09:12 Dose: 5 mg Aspirin (Asa -) 81 mg PO DAILY [facility] Last Admin: 09/05/17 09:12 Dose: 81 mg Atorvastatin Calcium (Lipitor -) 80 mg PO HS [facility] Clopidogrel Bisulfate (Plavix -) 75 mg PO DAILY [facility] Last Admin: 09/05/17 09:12 Dose: 75 mg Darunavir (Prezista -) 600 mg PO BID [facility] Last Admin: 09/05/17 09:13 Dose: 600 mg Etravirine (Intelence -) 200 mg PO BID [facility] Last Admin: 09/05/17 09:13 Dose: 200 mg Gabapentin (Neurontin -) 400 mg PO TID [facility] Heparin Sodium (Porcine) (Heparin -) 1,000 unit IVPUSH PRN PRN PRN Reason: Heparin Heparin Sodium (Porcine) (Heparin -) 5,000 unit IVPUSH PRN PRN PRN Reason: Heparin Last Admin: 09/05/17 09:33 Dose: 5,000 unit HEPARIN SOD,PORK IN 0.45% NACL (Heparin-1/2ns 25,000 Units/500) 25,000 units in 500 mls @ 20 mls/hr IVPB TITR [facility]; 1,000 UNITS/HR PRN Reason: Protocol Last Admin: 09/05/17 09:14 Dose: Not Given Insulin Aspart (Novolog Vial Sliding Scale -) 1 vial SQ ACHS [facility] PRN Reason: Protocol Insulin Detemir (Levemir Vial) 34 units SQ HS [facility] Metoprolol Succinate (Toprol Xl -) 100 mg PO DAILY [facility] Last Admin: 09/05/17 09:12 Dose: 100 mg Non-Formulary Medication (Daclatasvir Dihydrochloride [Daklinza]) 60 mg PO DAILY [facility] Pantoprazole Sodium (Protonix -) 40 mg PO DAILY [facility] Last Admin: 09/05/17 09:13 Dose: 40 mg Raltegravir (Isentress -) 400 mg PO BID [facility] Last Admin: 09/05/17 09:13 Dose: 400 mg Warfarin Sodium (Coumadin -) 5 mg PO DAILY@1800 [facility] PHYSICAL EXAMINATION Vital Signs Period Temp Pulse Resp BP Sys/Stallings Pulse Ox Last 24 Hr 98 F-98.8 F 87-92 18-20 126-147/72-86 97 GENERAL: Awake, alert, and fully oriented, in no acute respiratory distress, eating a sandwich. HEAD: Normal with no signs of trauma. 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 Moist mucous membranes. NECK: Normal range of motion, supple, no JVD. LUNGS: Dull lung bases, Breath sounds equal, basal creps bilaterally, no wheeze or rhonchi. No accessory muscle use. HEART: Tachycardic, S1 and S2 without murmur, rub or gallop. ABDOMEN: Soft, nontender, distended/obese, normoactive bowel sounds, no guarding MUSCULOSKELETAL: Normal range of motion at all joints. R big toe mild subungual swelling and hematoma. No CVA tenderness. UPPER EXTREMITIES: 2+ pulses, warm, well-perfused. LOWER EXTREMITIES: 2+ pulses, warm, well-perfused. No calf tenderness. Bilateral pitting peripheral edema, up to knee. NEUROLOGICAL: Normal speech. No facial droop, normal tone, limited participation, strength grossly intact, sensory intact, gait deferred CBCD WBC 6.2 K/mm3 (4.0-10.0) 09/05/17 07:35 RBC 3.03 M/mm3 (3.60-5.2) L 09/05/17 07:35 Hgb 9.3 GM/dL (10.7-15.3) L 09/05/17 07:35 Hct 28.3 % (32.4-45.2) L 09/05/17 07:35 MCV 93.3 fl (80-96) 09/05/17 07:35 MCHC 32.9 g/dl (32.0-36.0) 09/05/17 07:35 RDW 15.1 % (11.6-15.6) 09/05/17 07:35 Plt Count 183 K/MM3 (134-434) 09/05/17 07:35 MPV 10.1 fl (7.5-11.1) 09/05/17 07:35 CMP Sodium 142 mmol/L (136-145) 09/05/17 07:35 Potassium 3.7 mmol/L (3.5-5.1) 09/05/17 07:35 Chloride 106 mmol/L (98-107) 09/05/17 07:35 Carbon Dioxide 30 mmol/L (21-32) 09/05/17 07:35 Anion Gap 6 (8-16) L 09/05/17 07:35 BUN 26 mg/dL (7-18) H 09/05/17 07:35 Creatinine 2.2 mg/dL (0.55-1.02) H 09/05/17 07:35 Creat Clearance w eGFR 22.20 (>60) 09/05/17 07:35 Calcium 8.5 mg/dL (8.5-10.1) 09/05/17 07:35 Total Bilirubin 1.2 mg/dL (0.2-1.0) H D 09/05/17 07:35 AST 11 U/L (15-37) L 09/05/17 07:35 ALT 12 U/L (12-78) 09/05/17 07:35 Alkaline Phosphatase 69 U/L (45-117) 09/05/17 07:35 Total Protein 6.2 g/dl (6.4-8.2) L 09/05/17 07:35 Albumin 2.3 g/dl (3.4-5.0) L 09/05/17 07:35 CT head reviewed ASSESSMENT/PLAN: 66 yo F with PMHx of diastolic CHF(last ECHO-07/07), [place] (s/p stent placement 2015, 12/2016), IDDM, HTN, HLD, HIV and small SDH 04/2016, recent admission for PNA (07/09) presenting with a 4 day hx of SOB, worse on exertion, worsening orthopnea and PND,( has been unable to sleep for days), weight gain (30lbs in one month) and bilateral pedal edema. Per notes, she said she has been gaining weight despite regular exercise in the gym. 4 days prior to admission she reported running out of her lasix (40mg daily) and was unable to reach her primary care physician to refill her medications and thus develop respiratory difficulty and presented to the hospital. CXR noted to have diffuse pulmonary vascular congestion with possible L pleural effusion. I was consulted regarding prior subdural hematoma as patient with reported DVT and for AC. CT head compelted and reviewed and no acute changes noted. Evidence of prior craniotomy in R frontal region. No new neurologic deficits. Based on this, she does has baseline risk of bleed as any patient with prior hemorrhage. Patient started on AC, denies any issues. No bleeding. No change in mental status, appears at baseline neurologic status. Ct head if any acute changes in mental status deterioration. Monitor mental status, neuro exam, currently stable. She is on dual antiplatelet as well and I would advise that as INR approaches 2, her Plavix should be held to minimize risk for bleed. She can continue ASA 81mg for antiplalelet benefit. If AC stopped in future, plavix 75 can be restarted
[2017-09-05] MEDS ORDERED: [UNRECOGNIZED DRUG - OTHER] PO SCH (10:00)
--- NOTE | 2017-09-05 11:52 | PN ---
Progress Note (short form) - Note Progress Note: Feels OK. No CP or SOB. No acute events overnight. Intake & Output 09/02/17 09/03/17 09/04/17 09/05/17 23:59 23:59 23:59 23:59 Intake Total 1184 1416 1840 651 Output Total 1250 1300 400 Balance -66 1416 540 251 Weight 232 lb 6.4 oz 232 lb 9.6 oz 231 lb 3.2 oz 231 lb Last Vital Signs Temp Pulse Resp BP Pulse Ox 98.1 F 87 20 144/78 97 09/05/17 06:00 09/05/17 06:00 09/05/17 06:00 09/05/17 06:00 09/04/17 21:00 Active Medications Amlodipine Besylate (Norvasc -) 5 mg PO DAILY [facility] Last Admin: 09/05/17 09:12 Dose: 5 mg Aspirin (Asa -) 81 mg PO DAILY [facility] Last Admin: 09/05/17 09:12 Dose: 81 mg Atorvastatin Calcium (Lipitor -) 80 mg PO [facility] Clopidogrel Bisulfate (Plavix -) 75 mg PO DAILY [facility] Last Admin: 09/05/17 09:12 Dose: 75 mg Darunavir (Prezista -) 600 mg PO BID [facility] Last Admin: 09/05/17 09:13 Dose: 600 mg Etravirine (Intelence -) 200 mg PO BID [facility] Last Admin: 09/05/17 09:13 Dose: 200 mg Gabapentin (Neurontin -) 400 mg PO TID [facility] Heparin Sodium (Porcine) (Heparin -) 1,000 unit IVPUSH PRN PRN PRN Reason: Heparin Heparin Sodium (Porcine) (Heparin -) 5,000 unit IVPUSH PRN PRN PRN Reason: Heparin Last Admin: 09/05/17 09:33 Dose: 5,000 unit HEPARIN SOD,PORK IN 0.45% NACL (Heparin-1/2ns 25,000 Units/500) 25,000 units in 500 mls @ 20 mls/hr IVPB TITR [facility]; 1,000 UNITS/HR PRN Reason: Protocol Last Admin: 09/05/17 09:14 Dose: Not Given Insulin Aspart (Novolog Vial Sliding Scale -) 1 vial SQ ACHS [facility] PRN Reason: Protocol Insulin Detemir (Levemir Vial) 34 units SQ HS [facility] Metoprolol Succinate (Toprol Xl -) 100 mg PO DAILY [facility] Last Admin: 09/05/17 09:12 Dose: 100 mg Non-Formulary Medication (Daclatasvir Dihydrochloride [Daklinza]) 60 mg PO DAILY [facility] Pantoprazole Sodium (Protonix -) 40 mg PO DAILY [facility] Last Admin: 09/05/17 09:13 Dose: 40 mg Raltegravir (Isentress -) 400 mg PO BID [facility] Last Admin: 09/05/17 09:13 Dose: 400 mg Warfarin Sodium (Coumadin -) 5 mg PO DAILY@1800 [facility] GENERAL: NAD HEAD: Normal with no signs of trauma. 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 Moist mucous membranes. NECK: Normal range of motion, supple, no JVD. LUNGS: bilateral scattered rhonchi. No accessory muscle use. HEART: Tachycardic, S1 and S2 without murmur, rub or gallop. ABDOMEN: Soft, nontender, distended/obese, normoactive bowel sounds, no guarding MUSCULOSKELETAL: Normal range of motion at all joints. R big toe mild subungual swelling and hematoma. No CVA tenderness. UPPER EXTREMITIES: 2+ pulses, warm, well-perfused. LOWER EXTREMITIES: 2+ pulses, warm, well-perfused. No calf tenderness. Improving edema. NEUROLOGICAL: Non-focal Laboratory Results - last 24 hr 09/04/17 09/04/17 09/04/17 12:16 13:40 17:33 WBC RBC Hgb Hct MCV MCH MCHC RDW Plt Count MPV Neutrophils % Lymphocytes % Monocytes % Eosinophils % Basophils % PT with INR INR PTT (Actin FS) Sodium Potassium Chloride Carbon Dioxide Anion Gap BUN Creatinine Creat Clearance w eGFR POC Glucometer 205 265 Random Glucose Calcium Phosphorus Magnesium Total Bilirubin AST ALT Alkaline Phosphatase Total Protein Albumin Urine Color Ltyellow Urine Appearance Clear Urine pH 7.0 Ur Specific [place] 1.009 Urine Protein 3+ H Urine Glucose (UA) 1+ H Urine Ketones Negative Urine Blood Negative Urine Nitrite Negative Urine Bilirubin Negative Urine Urobilinogen Negative Ur Leukocyte Esterase Trace Urine WBC (Auto) 6 Urine RBC (Auto) None 09/04/17 09/05/17 09/05/17 21:27 06:32 07:35 WBC RBC Hgb Hct MCV MCH MCHC RDW Plt Count MPV Neutrophils % Lymphocytes % Monocytes % Eosinophils % Basophils % PT with INR INR PTT (Actin FS) 38.9 H D Sodium Potassium Chloride Carbon Dioxide Anion Gap BUN Creatinine Creat Clearance w eGFR POC Glucometer 201 151 Random Glucose Calcium Phosphorus Magnesium Total Bilirubin AST ALT Alkaline Phosphatase Total Protein Albumin Urine Color Urine Appearance Urine pH Ur Specific [place] Urine Protein Urine Glucose (UA) Urine Ketones Urine Blood Urine Nitrite Urine Bilirubin Urine Urobilinogen Ur Leukocyte Esterase Urine WBC (Auto) Urine RBC (Auto) 09/05/17 09/05/17 09/05/17 07:35 07:35 07:35 WBC 6.2 RBC 3.03 L Hgb 9.3 L Hct 28.3 L MCV 93.3 MCH 30.7 MCHC 32.9 RDW 15.1 Plt Count 183 MPV 10.1 Neutrophils % 60.1 Lymphocytes % 23.7 Monocytes % 11.6 H Eosinophils % 3.7 Basophils % 0.9 PT with INR 12.40 INR 1.10 PTT (Actin FS) Sodium 142 Potassium 3.7 Chloride 106 Carbon Dioxide 30 Anion Gap 6 L BUN 26 H Creatinine 2.2 H Creat Clearance w eGFR 22.20 POC Glucometer Random Glucose 144 H Calcium 8.5 Phosphorus 3.5 Magnesium 1.9 Total Bilirubin 1.2 H D AST 11 L ALT 12 Alkaline Phosphatase 69 Total Protein 6.2 L Albumin 2.3 L Urine Color Urine Appearance Urine pH Ur Specific [place] Urine Protein Urine Glucose (UA) Urine Ketones Urine Blood Urine Nitrite Urine Bilirubin Urine Urobilinogen Ur Leukocyte Esterase Urine WBC (Auto) Urine RBC (Auto) Problem List - Problems (1) DVT (deep venous thrombosis) Code(s): I82.409 - ACUTE EMBOLISM AND THOMBOS UNSP DEEP VN UNSP LOWER EXTREMITY (2) CHF (congestive heart failure) Code(s): I50.9 - HEART FAILURE, UNSPECIFIED Qualifiers: Heart failure type: unspecified Heart failure chronicity: unspecified Qualified Code(s): I50.9 - Heart failure, unspecified (3) Acute pulmonary edema Code(s): J81.0 - ACUTE PULMONARY EDEMA (4) Cerebrovascular accident (CVA) Code(s): I63.9 - CEREBRAL INFARCTION, UNSPECIFIED Qualifiers: CVA mechanism: unspecified Qualified Code(s): I63.9 - Cerebral infarction, unspecified (5) Hyperlipidemia Code(s): E78.5 - HYPERLIPIDEMIA, UNSPECIFIED (6) Hypertriglyceridemia Code(s): E78.1 - PURE HYPERGLYCERIDEMIA (7) Intracranial hemorrhage Code(s): I62.9 - NONTRAUMATIC INTRACRANIAL HEMORRHAGE, UNSPECIFIED (8) Stented coronary artery Code(s): Z95.5 - PRESENCE OF CORONARY ANGIOPLASTY IMPLANT AND GRAFT (9) CAD (coronary artery disease) Code(s): I25.10 - ATHSCL HEART DISEASE OF [place] CORONARY ARTERY W/O ANG PCTRS (10) CKD (chronic kidney disease) Code(s): N18.9 - CHRONIC KIDNEY DISEASE, UNSPECIFIED Qualifiers: Chronic kidney disease stage: unspecified stage Qualified Code(s): N18.9 - Chronic kidney disease, unspecified (11) Diabetes Code(s): E11.9 - TYPE 2 DIABETES MELLITUS WITHOUT COMPLICATIONS (12) HIV (human immunodeficiency virus infection) Code(s): Z21 - ASYMPTOMATIC HUMAN IMMUNODEFICIENCY VIRUS INFECTION STATUS (13) H/O traumatic subdural hematoma Code(s): Z87.828 - PERSONAL HISTORY OF OTH (HEALED) PHYSICAL INJURY AND TRAUMA (14) Pulmonary hypertension Code(s): I27.20 - PULMONARY HYPERTENSION, UNSPECIFIED IMP ACUTE ON CHRONIC DIASTOLIC CHF RLE DVT LOW CLINICAL SUSPICION FOR PE (LOW PROBABILITY V/Q) CKD PULMONARY HTN H/O SDH H/O HIV H/O CVA LIKELY OSAS ASHD S/P FL S/P STENT PLAN AC: IV HEPARIN/COUMADIN O2 NEEDED FORMAL SLEEP W/UP AFTER D/C DR WILDER
--- NOTE | 2017-09-05 12:08 | PN ---
Teaching Attending Note Name of Resident: Henny Peraza ATTENDING PHYSICIAN STATEMENT I saw and evaluated the patient. I reviewed the resident's note and discussed the case with the resident. I agree with the resident's findings and plan as documented. SUBJECTIVE:asymptomatic. denies CP, SOB, fever, chills, cough, pedal swelling, N /V/C/D OBJECTIVE: Last Vital Signs Temp Pulse Resp BP Pulse Ox 98.1 F 87 20 144/78 97 09/05/17 06:00 09/05/17 06:00 09/05/17 06:00 09/05/17 06:00 09/04/17 21:00 Intake & Output 09/02/17 09/03/17 09/04/17 09/05/17 23:59 23:59 23:59 23:59 Intake Total 1184 1416 1840 651 Output Total 1250 1300 400 Balance -66 1416 540 251 Weight 232 lb 6.4 oz 232 lb 9.6 oz 231 lb 3.2 oz 231 lb General NAD CV S1 S2 RRR no murmur/rub/gallop Lungs CTA B/L no wheezing/rales/rhonchi Extremities refused me to evaluate the legs ASSESSMENT AND PLAN: 66 yo F with acute on chronic diastolic HF exacerbation in the setting of not taking her lasix and right toe pain and swelling 1. acute on chronic diastolic heart failure exacerbation- now euvolemic. lasix being held. concern was raised for PE due to RLE DVT however VQ scan negative. will cont daily weights. will re-start lasix once kidney function is stable or if develops volume 2. RLE near occlusive Popliteal vein DVT- on heparin ggt. coumadin bridge Day # 3 today. will increase coumadin to 7.5mg. neuro requesting plavix to be stopped however pt had recent stents placed and cardio recommended to continue all 3. will have neuro and cardio discuss bleeding risk. 3. NÉSTOR on CKD stage III- with nephrotic range proteinuria. Cr stabilized. would benefit from renal bx as has multiple of risk factors however pt requires anticoagulation. unable to perform at this time. nephro on board 4. CAD s/p PCI in 03/2016 and RCA x 2 in 12/2016- on asa/plavix. recent stent placement. as per cardio should be on triple therapy for 1 year. 5. Hyperlipidemia- increase to high intensity statin 6. Obesity 7. IDDM, poorly controlled- controlled in AM but high during the day. will switch to levemir 15 units BID. d/c pre meal novolog and place on sliding scale. titrate insulin to optimize control. 8. HTN-improved. cont to adjust medication as needed 9. 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 11. 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 DVT ppx- hep ggt-coumadin bridge
[2017-09-05] MEDS: INSULIN SLIDING SCALE (NOVOLOG) 1 VIAL SQ SCH ×3 (12:41→21:13)
[2017-09-05] MEDS: WARFARIN NA 7.5 MG TABLET (FP) PO SCH (17:35)
[2017-09-05] MEDS ORDERED: WARFARIN NA 5 MG TABLET (UD) PO SCH (18:00)
--- NOTE | 2017-09-05 19:09 | PN ---
Progress Note, Physician History of Present Illness: Pt seen and examined at bedside. Pt was seen earlier today at about 3 pm. Her daughter was at bedside and care was discussed with both of them. Pt is not compliant with meds and has poor outpt follow up. - Current Medication List Current Medications: Active Medications Amlodipine Besylate (Norvasc -) 5 mg PO DAILY [facility] Last Admin: 09/05/17 09:12 Dose: 5 mg Aspirin (Asa -) 81 mg PO DAILY [facility] Last Admin: 09/05/17 09:12 Dose: 81 mg Atorvastatin Calcium (Lipitor -) 80 mg PO HS [facility] Clopidogrel Bisulfate (Plavix -) 75 mg PO DAILY [facility] Last Admin: 09/05/17 09:12 Dose: 75 mg Darunavir (Prezista -) 600 mg PO BID [facility] Last Admin: 09/05/17 09:13 Dose: 600 mg Etravirine (Intelence -) 200 mg PO BID [facility] Last Admin: 09/05/17 09:13 Dose: 200 mg Gabapentin (Neurontin -) 400 mg PO TID [facility] Last Admin: 09/05/17 14:36 Dose: 400 mg Heparin Sodium (Porcine) (Heparin -) 1,000 unit IVPUSH PRN PRN PRN Reason: Heparin Heparin Sodium (Porcine) (Heparin -) 5,000 unit IVPUSH PRN PRN PRN Reason: Heparin Last Admin: 09/05/17 09:33 Dose: 5,000 unit HEPARIN SOD,PORK IN 0.45% NACL (Heparin-1/2ns 25,000 Units/500) 25,000 units in 500 mls @ 20 mls/hr IVPB TITR [facility]; 1,000 UNITS/HR PRN Reason: Protocol Last Admin: 09/05/17 09:14 Dose: Not Given Insulin Aspart (Novolog Vial Sliding Scale -) 1 vial SQ ACHS [facility] PRN Reason: Protocol Last Admin: 09/05/17 17:35 Dose: 10 units Insulin Detemir (Levemir Vial) 15 units SQ ONCE ONE Stop: 09/05/17 22:01 Insulin Detemir (Levemir Vial) 15 units SQ BID@0700,2200 [facility] Metoprolol Succinate (Toprol Xl -) 100 mg PO DAILY [facility] Last Admin: 09/05/17 09:12 Dose: 100 mg Non-Formulary Medication (Daclatasvir Dihydrochloride [Daklinza]) 60 mg PO DAILY [facility] Pantoprazole Sodium (Protonix -) 40 mg PO DAILY [facility] Last Admin: 09/05/17 09:13 Dose: 40 mg Raltegravir (Isentress -) 400 mg PO BID [facility] Last Admin: 09/05/17 09:13 Dose: 400 mg Warfarin Sodium (Coumadin -) 7.5 mg PO DAILY@1800 [facility] Last Admin: 09/05/17 17:35 Dose: 7.5 mg - Objective Vital Signs: Vital Signs Temperature 98.6 F 09/05/17 14:21 Pulse Rate 87 09/05/17 14:21 Respiratory Rate 22 09/05/17 14:21 Blood Pressure 158/87 09/05/17 14:21 O2 Sat by Pulse Oximetry (%) 95 09/05/17 09:00 Constitutional: Yes: Calm HENT: Yes: Atraumatic Cardiovascular: Yes: S1, S2 Respiratory: Yes: On Nasal O2 Gastrointestinal: Yes: Soft Genitourinary: Yes: WNL Musculoskeletal: Yes: WNL Edema: RLE: Trace Neurological: Yes: Oriented Psychiatric: Yes: Oriented Labs: CBC, BMP 09/05/17 07:35 09/05/17 07:35 INR, PTT INR 1.10 (0.82-1.09) 09/05/17 07:35 Problem List - Problems (1) Acute on chronic diastolic CHF (congestive heart failure) Code(s): I50.33 - ACUTE ON CHRONIC DIASTOLIC (CONGESTIVE) HEART FAILURE (2) NÉSTOR (acute kidney injury) Code(s): N17.9 - ACUTE KIDNEY FAILURE, UNSPECIFIED (3) HIV (human immunodeficiency virus infection) Code(s): Z21 - ASYMPTOMATIC HUMAN IMMUNODEFICIENCY VIRUS INFECTION STATUS (4) HTN (hypertension) Code(s): I10 - ESSENTIAL (PRIMARY) HYPERTENSION Qualifiers: Hypertension type: unspecified Qualified Code(s): I10 - Essential (primary ) hypertension Assessment/Plan Current Medications Generic Name Dose Route Start Last Admin Trade Name Freq PRN Reason Stop Dose Admin Amlodipine Besylate 5 mg 09/05/17 10:00 09/05/17 09:12 Norvasc - PO 5 mg DAILY [facility] Administration Aspirin 81 mg 09/05/17 10:00 09/05/17 09:12 Asa - PO 81 mg DAILY [facility] Administration Atorvastatin Calcium 80 mg 09/05/17 22:00 Lipitor - PO HS [facility] Clopidogrel Bisulfate 75 mg 09/05/17 10:00 09/05/17 09:12 Plavix - PO 75 mg DAILY [facility] Administration Darunavir 600 mg 09/05/17 10:00 09/05/17 09:13 Prezista - PO 600 mg BID [facility] Administration Etravirine 200 mg 09/05/17 10:00 09/05/17 09:13 Intelence - PO 200 mg BID [facility] Administration Gabapentin 400 mg 09/05/17 14:00 09/05/17 14:36 Neurontin - PO 400 mg TID [facility] Administration Heparin Sodium (Porcine) 1,000 unit 09/05/17 08:09 Heparin - IVPUSH PRN PRN Heparin Heparin Sodium (Porcine) 5,000 unit 09/05/17 08:09 09/05/17 09:33 Heparin - IVPUSH 5,000 unit PRN PRN Administration Heparin HEPARIN SOD,PORK IN 0.45% NACL 25,000 units in 500 mls @ 20 mls/hr 09/05/17 08 :09 09/05/17 09:14 Heparin-1/2ns 25,000 Units/500 IVPB Not Given TITR [facility] Protocol 1,000 UNITS/HR Insulin Aspart 1 vial 09/05/17 11:00 09/05/17 17:35 Novolog Vial Sliding Scale - SQ 10 units ACHS [facility] Administration Protocol Insulin Detemir 15 units 09/05/17 22:00 Levemir Vial SQ 09/05/17 22:01 ONCE ONE Insulin Detemir 15 units 09/06/17 07:00 Levemir Vial SQ BID@0700,2200 [facility] Metoprolol Succinate 100 mg 09/05/17 10:00 09/05/17 09:12 Toprol Xl - PO 100 mg DAILY [facility] Administration Non-Formulary Medication 60 mg 09/05/17 10:00 Daclatasvir Dihydrochloride [Daklinza] PO DAILY [facility] Pantoprazole Sodium 40 mg 09/05/17 10:00 09/05/17 09:13 Protonix - PO 40 mg DAILY [facility] Administration Raltegravir 400 mg 09/05/17 10:00 09/05/17 09:13 Isentress - PO 400 mg BID [facility] Administration Warfarin Sodium 7.5 mg 09/05/17 18:00 09/05/17 17:35 Coumadin - PO 7.5 mg DAILY@1800 [facility] Administration Impression 1. NÉSTOR 2. nephrotic range proteinuria 3. CHF 4. DVT 5. HIV 6. DM 7. subdural hematoma 8. 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 Her levels have been about 1.6 - recommend better glucose control as hg a1c is greater than 10 - unable to do kidney biopsy as she has a clot and is on iv heparin - renal workup in progress - consider checking c4 and viral load as hiv related kidney disease is in the differential
--- NOTE | 2017-09-05 19:11 | PN ---
Progress Note, Physician - Current Medication List Current Medications: Active Medications Amlodipine Besylate (Norvasc -) 5 mg PO DAILY [facility] Last Admin: 09/05/17 09:12 Dose: 5 mg Aspirin (Asa -) 81 mg PO DAILY [facility] Last Admin: 09/05/17 09:12 Dose: 81 mg Atorvastatin Calcium (Lipitor -) 80 mg PO HS [facility] Clopidogrel Bisulfate (Plavix -) 75 mg PO DAILY [facility] Last Admin: 09/05/17 09:12 Dose: 75 mg Darunavir (Prezista -) 600 mg PO BID [facility] Last Admin: 09/05/17 09:13 Dose: 600 mg Etravirine (Intelence -) 200 mg PO BID [facility] Last Admin: 09/05/17 09:13 Dose: 200 mg Gabapentin (Neurontin -) 400 mg PO TID [facility] Last Admin: 09/05/17 14:36 Dose: 400 mg Heparin Sodium (Porcine) (Heparin -) 1,000 unit IVPUSH PRN PRN PRN Reason: Heparin Heparin Sodium (Porcine) (Heparin -) 5,000 unit IVPUSH PRN PRN PRN Reason: Heparin Last Admin: 09/05/17 09:33 Dose: 5,000 unit HEPARIN SOD,PORK IN 0.45% NACL (Heparin-1/2ns 25,000 Units/500) 25,000 units in 500 mls @ 20 mls/hr IVPB TITR [facility]; 1,000 UNITS/HR PRN Reason: Protocol Last Admin: 09/05/17 09:14 Dose: Not Given Insulin Aspart (Novolog Vial Sliding Scale -) 1 vial SQ ACHS [facility] PRN Reason: Protocol Last Admin: 09/05/17 17:35 Dose: 10 units Insulin Detemir (Levemir Vial) 15 units SQ ONCE ONE Stop: 09/05/17 22:01 Insulin Detemir (Levemir Vial) 15 units SQ BID@0700,2200 [facility] Metoprolol Succinate (Toprol Xl -) 100 mg PO DAILY [facility] Last Admin: 09/05/17 09:12 Dose: 100 mg Non-Formulary Medication (Daclatasvir Dihydrochloride [Daklinza]) 60 mg PO DAILY [facility] Pantoprazole Sodium (Protonix -) 40 mg PO DAILY [facility] Last Admin: 09/05/17 09:13 Dose: 40 mg Raltegravir (Isentress -) 400 mg PO BID [facility] Last Admin: 09/05/17 09:13 Dose: 400 mg Warfarin Sodium (Coumadin -) 7.5 mg PO DAILY@1800 [facility] Last Admin: 09/05/17 17:35 Dose: 7.5 mg - Objective Vital Signs: Vital Signs Temperature 98.6 F 09/05/17 14:21 Pulse Rate 87 09/05/17 14:21 Respiratory Rate 22 09/05/17 14:21 Blood Pressure 158/87 09/05/17 14:21 O2 Sat by Pulse Oximetry (%) 95 09/05/17 09:00 Constitutional: Yes: Calm Eyes: Yes: WNL HENT: Yes: WNL Neck: Yes: WNL Cardiovascular: Yes: Regular Rate and Rhythm Respiratory: Yes: WNL Gastrointestinal: Yes: Soft ...Rectal Exam: Yes: Deferred Genitourinary: No: Anuria Breast(s): Yes: WNL Musculoskeletal: Yes: Muscle Weakness Extremities: Yes: Cool Edema: Yes Edema: LLE: Trace, RLE: Trace Peripheral Pulses WNL: Yes Integumentary: Yes: WNL Neurological: Yes: WNL Psychiatric: Yes: WNL Labs: CBC, BMP 09/05/17 07:35 09/05/17 07:35 INR, PTT INR 1.10 (0.82-1.09) 09/05/17 07:35 Abnormal Lab Results 09/03/17 09/05/17 09/06/17 15:00 14:45 08:45 RBC 3.30 L Hgb 10.0 L Hct 30.4 L PTT (Actin FS) 72.6 H D BUN Creatinine Random Glucose Albumin (PEP) 2.5 L 09/06/17 09/06/17 08:45 08:45 RBC Hgb Hct PTT (Actin FS) 41.8 H D BUN 28 H Creatinine 2.3 H Random Glucose 188 H Albumin (PEP) Problem List - Problems (1) HTN (hypertension) Assessment/Plan: On metorpolol succinate ( 100 mg daily); on amlodipine. If renal function improves, add ACEI or ARB for HTN and renal protection with DM (and may stop amlodipine then if BP falls too precipitously). (ECHO mildly reduced LVEF, with ?noncompaction of LV. Code(s): I10 - ESSENTIAL (PRIMARY) HYPERTENSION Qualifiers: Hypertension type: unspecified Qualified Code(s): I10 - Essential (primary ) hypertension (2) Acute on chronic systolic and diastolic heart failure, NYHA class 2 Assessment/Plan: Increased metoprolol. ?Noncompaction syndrome (LV); f/u cardiac records, Consider cardiac MRI as oupatient, if not recently done. Renal dysfunction precludes use of ACEI or ARB presently. Code(s): I50.43 - ACUTE ON CHRONIC COMBINED SYSTOLIC AND DIASTOLIC HRT FAIL (3) DVT (deep venous thrombosis) Code(s): I82.409 - ACUTE EMBOLISM AND THOMBOS UNSP DEEP VN UNSP LOWER EXTREMITY Qualifiers: DVT location: upper extremity (4) Gout Code(s): M10.9 - GOUT, UNSPECIFIED (5) Obesity Code(s): E66.9 - OBESITY, UNSPECIFIED (6) Sleep apnea Code(s): G47.30 - SLEEP APNEA, UNSPECIFIED (7) CAD (coronary artery disease) Code(s): I25.10 - ATHSCL HEART DISEASE OF [place] CORONARY ARTERY W/O ANG PCTRS (8) CKD (chronic kidney disease) Code(s): N18.9 - CHRONIC KIDNEY DISEASE, UNSPECIFIED Qualifiers: Chronic kidney disease stage: unspecified stage Qualified Code(s): N18.9 - Chronic kidney disease, unspecified (9) Diabetes Code(s): E11.9 - TYPE 2 DIABETES MELLITUS WITHOUT COMPLICATIONS (10) HIV (human immunodeficiency virus infection) Code(s): Z21 - ASYMPTOMATIC HUMAN IMMUNODEFICIENCY VIRUS INFECTION STATUS (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 Pt is presently already on anticoagulant for DVT. She is also being treated for systollic/diastolic CHF. 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 As the latest was late 2016, she should ideally continue both ASA and clopidogrel for at least a year after the procedure; this was discussed with Dr. Almazan, pt's neurologist. Addition of warfarin significantly increases risk of bleed, but is required because of DVT. If pt and family agree to continuing all three agents, INR level should be monitored frequently to keep as uniformly close to 2.0 as possible (weekly checks would be best). If an antiplatelet is to be discontinued, agree with stopping clopidogrel. Code(s): Z87.828 - PERSONAL HISTORY OF OTH (HEALED) PHYSICAL INJURY AND TRAUMA (13) Pulmonary hypertension Code(s): I27.20 - PULMONARY HYPERTENSION, UNSPECIFIED
[2017-09-05] MEDS ORDERED: PT OWN MED DRAWER 7, Y5N ONE (20:50)
[2017-09-05] MEDS: ATORVASTATIN CA 80 MG TABLET (FP) PO SCH (21:03)
[2017-09-05] MEDS ORDERED: INSULIN DETEMIR 100 UNITS/ML MDV SQ SCH (22:00)
[2017-09-06] MEDS: GABAPENTIN 400 MG CAPSULE (FP) PO SCH ×3 (06:56→22:04)
[2017-09-06] MEDS: INSULIN DETEMIR 100 UNITS/ML MDV SQ SCH ×2 (06:58→22:05)
[2017-09-06] MEDS: INSULIN SLIDING SCALE (NOVOLOG) 1 VIAL SQ SCH ×4 (06:59→22:05)
--- NOTE | 2017-09-06 07:58 | PN ---
Physical Exam: SUBJECTIVE: Patient seen and examined. No new c/o overnight. No chest pain or SOB. Coumadin increased to 7.5mg yesterday and bid levemir given. Heparin subtherapeutic in am yesterday, became therapeutic later in the day on protocol. Pt says she doesn't want anyone touching her feet because of her diabetic neuropathy. OBJECTIVE: Vital Signs Period Temp Pulse Resp BP Sys/Stallings Pulse Ox Last 24 Hr 98.0 F-98.9 F 81-88 18-22 132-158/73-90 95-95 Vital Signs Temp 98.0 F 09/06/17 06:00 Pulse 82 09/06/17 06:00 Resp 20 09/06/17 06:00 BP 150/89 09/06/17 06:00 Pulse Ox 95 09/05/17 21:00 Intake & Output 09/05/17 09/05/17 09/06/17 11:59 23:59 11:59 Intake Total 651 840 180 Output Total 400 Balance 251 840 180 Weight 104.78 kg 103.328 kg Intake: IV 336 380 180 HEPARIN-1/2NS 25,000 336 380 UNITS/500 25,000 units In 500 ml @ 1,000 UNITS/HR 20 mls/hr IVPB TITR WILNER Rx#:[id number] HEPARIN-1/2NS 25,000 180 UNITS/500 25,000 units In 500 ml @ 1,000 UNITS/HR 20 mls/hr IVPB TITR WILNER Rx#:[id number] Oral 315 460 Output: Urine 400 Void 400 Other: Voiding Method Bedside Commode Bedside Commode Bedside Commode # Unmeasured Voids Void 1 1 3 Bowel Movement No No No Height 1.83 m Body Mass Index (BMI) 31.3 Weight Measurement Method Standing Scale Standing Scale GENERAL: The patient is awake, alert, and fully oriented, in no acute painful or respiratory distress. ENT: moist mucous membranes. NECK: full range of motion, supple. LUNGS: Breath sounds equal, clear to auscultation bilaterally, no wheezes, no crackles HEART: Regular rate and rhythm, S1, S2 without murmur ABDOMEN: Soft, nontender, obese, normoactive bowel sounds, EXTREMITIES: 2+ pulses, warm, well-perfused, R pedal edema 1+. No calf tenderness or swelling. NEUROLOGICAL: AAOx3, no facial droop, muscle strength 5/5 globally. Normal speech Laboratory Results - last 24 hr 09/03/17 09/03/17 09/05/17 15:00 15:00 07:35 WBC RBC Hgb Hct MCV MCH MCHC RDW Plt Count MPV Neutrophils % Lymphocytes % Monocytes % Eosinophils % Basophils % PT with INR INR PTT (Actin FS) 38.9 H D Sodium Potassium Chloride Carbon Dioxide Anion Gap BUN Creatinine Creat Clearance w eGFR POC Glucometer Random Glucose Calcium Phosphorus Magnesium Total Bilirubin AST ALT Alkaline Phosphatase Total Protein Total Protein (PEP) 6.0 Albumin Albumin (PEP) 2.5 L Globulin 3.5 Albumin/Globulin Ratio 0.7 Beta Globulins 1.0 MICHELLE M-Jagdish MERY Screen Negative Double Strand DNA Ab <1 09/05/17 09/05/17 09/05/17 07:35 07:35 07:35 WBC 6.2 RBC 3.03 L Hgb 9.3 L Hct 28.3 L MCV 93.3 MCH 30.7 MCHC 32.9 RDW 15.1 Plt Count 183 MPV 10.1 Neutrophils % 60.1 Lymphocytes % 23.7 Monocytes % 11.6 H Eosinophils % 3.7 Basophils % 0.9 PT with INR 12.40 INR 1.10 PTT (Actin FS) Sodium 142 Potassium 3.7 Chloride 106 Carbon Dioxide 30 Anion Gap 6 L BUN 26 H Creatinine 2.2 H Creat Clearance w eGFR 22.20 POC Glucometer Random Glucose 144 H Calcium 8.5 Phosphorus 3.5 Magnesium 1.9 Total Bilirubin 1.2 H D AST 11 L ALT 12 Alkaline Phosphatase 69 Total Protein 6.2 L Total Protein (PEP) Albumin 2.3 L Albumin (PEP) Globulin Albumin/Globulin Ratio Beta Globulins MICHELLE M-Jagdish MERY Screen Double Strand DNA Ab 09/05/17 09/05/17 09/05/17 11:35 14:45 17:14 WBC RBC Hgb Hct MCV MCH MCHC RDW Plt Count MPV Neutrophils % Lymphocytes % Monocytes % Eosinophils % Basophils % PT with INR INR PTT (Actin FS) 72.6 H D Sodium Potassium Chloride Carbon Dioxide Anion Gap BUN Creatinine Creat Clearance w eGFR POC Glucometer 209 253 Random Glucose Calcium Phosphorus Magnesium Total Bilirubin AST ALT Alkaline Phosphatase Total Protein Total Protein (PEP) Albumin Albumin (PEP) Globulin Albumin/Globulin Ratio Beta Globulins MICHELLE M-Jagdish MERY Screen Double Strand DNA Ab 09/05/17 09/06/17 21:09 06:58 WBC RBC Hgb Hct MCV MCH MCHC RDW Plt Count MPV Neutrophils % Lymphocytes % Monocytes % Eosinophils % Basophils % PT with INR INR PTT (Actin FS) Sodium Potassium Chloride Carbon Dioxide Anion Gap BUN Creatinine Creat Clearance w eGFR POC Glucometer 203 116 Random Glucose Calcium Phosphorus Magnesium Total Bilirubin AST ALT Alkaline Phosphatase Total Protein Total Protein (PEP) Albumin Albumin (PEP) Globulin Albumin/Globulin Ratio Beta Globulins MICHELLE M-Jagdish MERY Screen Double Strand DNA Ab Active Medications Generic Name Dose Route Start Last Admin Trade Name Freq PRN Reason Stop Dose Admin Amlodipine Besylate 5 mg 09/05/17 10:00 09/05/17 09:12 Norvasc - PO 5 mg DAILY [facility] Administration Aspirin 81 mg 09/05/17 10:00 09/05/17 09:12 Asa - PO 81 mg DAILY [facility] Administration Atorvastatin Calcium 80 mg 09/05/17 22:00 09/05/17 21:03 Lipitor - PO 80 mg HS [facility]ILNER Administration Clopidogrel Bisulfate 75 mg 09/05/17 10:00 09/05/17 09:12 Plavix - PO 75 mg DAILY [facility] Administration Darunavir 600 mg 09/05/17 10:00 09/05/17 21:04 Prezista - PO 600 mg BID [facility] Administration Etravirine 200 mg 09/05/17 10:00 09/05/17 21:05 Intelence - PO 200 mg BID WIL[facility] Administration Gabapentin 400 mg 09/05/17 14:00 09/06/17 06:56 Neurontin - PO 400 mg TID [facility] Administration Heparin Sodium (Porcine) 1,000 unit 09/05/17 08:09 Heparin - IVPUSH PRN PRN Heparin Heparin Sodium (Porcine) 5,000 unit 09/05/17 08:09 09/05/17 09:33 Heparin - IVPUSH 5,000 unit PRN PRN Administration Heparin HEPARIN SOD,PORK IN 0.45% NACL 25,000 units in 500 mls @ 20 mls/hr 09/05/17 08 :09 09/05/17 22:50 Heparin-1/2ns 25,000 Units/500 IVPB 1,000 units/hr TITR [facility]IL[facility] 20 mls/hr Protocol Administration 1,000 UNITS/HR Insulin Aspart 1 vial 09/05/17 11:00 09/06/17 06:59 Novolog Vial Sliding Scale - SQ Not Given ACHS [facility] Protocol Insulin Detemir 15 units 09/06/17 07:00 09/06/17 06:58 Levemir Vial SQ 15 units BID@0700,2200 [facility] Administration Metoprolol Succinate 100 mg 09/05/17 10:00 09/05/17 09:12 Toprol Xl - PO 100 mg DAILY [facility] Administration Non-Formulary Medication 60 mg 09/05/17 10:00 Daclatasvir Dihydrochloride [Daklinza] PO DAILY WILNER Pantoprazole Sodium 40 mg 09/05/17 10:00 09/05/17 09:13 Protonix - PO 40 mg DAILY [facility] Administration Raltegravir 400 mg 09/05/17 10:00 09/05/17 21:04 Isentress - PO 400 mg BID [facility] Administration Warfarin Sodium 7.5 mg 09/05/17 18:00 09/05/17 17:35 Coumadin - PO 7.5 mg DAILY@1800 [facility] Administration V/Q scan done on 09/03/17-no evidence of PE ASSESSMENT/PLAN: Pt is a 66 yo F with PMHx of diastolic CHF(last ECHO-07/07), [place] (s/p stent placement 03/2016, 12/2016), IDDM, HTN, HLD, HIV and small SDH 04/2016, recent admission for PNA (07/09) presenting with a 4 day hx of SOB #Right foot swelling - DVT positive Bilateral pedal edema R>L Ambulates with difficulty, recent travel by air Duplex US R LE shows DVT Xray R foot-AP/Lateral- no acute pathology Lasix held (does not look volume overloaded) Continue heparin gtt- dose according to protocol, subtherapeutic in the am aPTT CBC Escalated coumadin to 7.5mg For Neuro and cardio final decison on triple anticoagulation #R/O PE Continue iv heparin gtt V/Q scan done see above- negative for PE Dr Godinez consulted- appreciate recommendations Cont heparin with coumadin 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 She will need triple anticoagulation for up to 1 year or at least for a few months because of second stent 12/2016. Dr Hsieh recommends a goal of [address] Hsieh is open to Plavix being removed if needed. See his notes #Acute on chronic CHF exacerbation: Not volume overload ed at this time-Lasix held Likely due to medication non compliance Pt diagnosed with diastolic CHF - ECHO 07/07 Repeat ECHO- see above, will need MRI as an outpatient BNP at presentation-3049.91 CXR at presentation- diffuse pulmonary vascular congestion with possible L pleural effusion Repeat CXR- resolving Hold lasix- with rising Cr- Daily weights Salt restriction- less than 1200mg per daily Strict ins and outs To consider follow up measures addressing compliance on discharge EKG- no features of ischemia- old T waves Negative trop x3 Continue Toprol XL 50mg daily Dr Hsieh on board- increased toprol to 100mg To continue amlodipine for now until renal function improves for replacement with ARBs or ACEI #small SDH 04/2016 No obvious lateralizing signs/ residual deficits Cont ASA Cont metoprolol D/W Dr Medina -considering previous bleed, now on heparin gtt for possible PE , pt should get CT head w/o contrast- shows chronic infarcts Neurol- Dr Zarco on board- appreciate recs- No acute bleed, risk of bleed exists but is aware of current DVT and need for anticoagulation- suggested plavix removed considering pt risks but will follow for final resolution between consultants Continue coumadin for DVT (in addition to ASA and clopidogrel for NOW- S/p stents)- neuro and cardio inputs appreciated Will follow #NÉSTOR on CKD: Cr- 1.7 on presentation D/W Dr Gomez- Marked proteinuria- likely secondary to HIV/DM/HTN agrees with holding lasix for now. does not look overloaded and cr- is improving HAART may not be contributory May currently be at her baseline Monitor BMP Lovenox stopped Avoid nephrotoxic drugs Dr Gomez on the case- appreciate recs Pt may benefit from renal biopsy after anticoagulation period if willing, although she has multiple likely etiology for glomerulonephrosis Immunologic work up by shama Clark still on hold # Hx of CA (s/p stent placement 03/2016, 12/2016) Cont daily ASA 81mg Cont plavix Toprol XL 50mg daily #IDDM SQ Insulin Detemir 15u bid ISS- Received 16u ISS overall Will still continue 15u levemir bid for now May need to increase am dose if persistently high need for ISS #Diabetic neuropathy Gabapentin 400 tid #HTN Amlodipine 5mg daily Toprol XL 100mg daily #HLD Lipitor 80mg PO HS #HIV Daklinza 60mg PO daily- has not been available. D/W pharmacy, they will reach out to [facility] pharmacy Raltegravir 400 mg PO BID Darunavir 600mg PO bid Etravirine 200mg bid Medications reconciled #Chronic anemia Iron Polysac/Iron Heme/FA/B12 PO ACBK #L Abdominal pain with epigastric tenderness R/O atypical chest pain vs GERD Resolved EKG stat- Likely new T wave inversions Repeat trops- negative x3 Tabs protonix 40mg daily Monitor #FEN No IVF at this time Monitor electrolytes and replete as needed Low salt/diabetic diet # Dispo: Med Surg Pending therapeutic coumadin dose now 7.5mg Visit type - Emergency Visit Emergency Visit: Yes ED Registration Date: 08/29/17 Care time: The patient presented to the Emergency Department on the above date and was hospitalized for further evaluation of their emergent condition. - New Patient This patient is new to me today: No - Critical Care Critical Care patient: No - Discharge Referral Referred to [facility] Med [facility] No
[2017-09-06 09:20] LABS: HEMATOCRIT 30.4 % (32.4-45.2); MCH 30.3 pg (25.7-33.7); MCHC 32.9 g/dl (32.0-36.0); MEAN CELL VOLUME 92.1 fl (80-96); MEAN PLT VOLUME 9.3 fl (7.5-11.1); PLATELET COUNT 211 K/MM3 (134-434); RDW 14.5 % (11.6-15.6); WHITE BLOOD COUNT 7.3 K/mm3 (4.0-10.0)
[2017-09-06 09:40] LABS: INR 1.13 (0.82-1.09); PROTHROMBIN TIME (PATIENT) 12.8 SEC (9.7-13.0)
[2017-09-06 09:42] LABS: ACTIVATED PTT 41.8 SECONDS (26.9-34.4)
[2017-09-06] MEDS ORDERED: PT OWN MED DRAWER 7, Y5N ONE (09:42)
--- NOTE | 2017-09-06 09:45 | PN ---
Progress Note (short form) - Note Progress Note: Neurology HISTORY OF PRESENT ILLNESS: 66 yo F with PMHx of diastolic CHF(last ECHO-07/07), [place] (s/p stent placement 2015, 12/2016), IDDM, HTN, HLD, HIV and small SDH 04/2016, recent admission for PNA (07/09) presenting with a 4 day hx of SOB, worse on exertion, worsening orthopnea and PND,( has been unable to sleep for days), weight gain (30lbs in one month) and bilateral pedal edema. Per notes, she said she has been gaining weight despite regular exercise in the gym. 4 days prior to admission she reported running out of her lasix (40mg daily) and was unable to reach her primary care physician to refill her medications and thus develop respiratory difficulty and presented to the hospital. CXR noted to have diffuse pulmonary vascular congestion with possible L pleural effusion. I was consulted regarding prior subdural hematoma as patient with reported DVT and for AC. CT head completed and reviewed and no acute changes noted. Evidence of prior craniotomy in R frontal region. No new neurologic deficits. Patient started on AC, denies any issues. No bleeding. No change in mental status, appears at baseline neurologic status. She is on dual antiplatelet as well and spoke with Dr. Montoya yesterday. Preference would be to have her on single antiplatelet while on AC. However, stent placed 9 mons ago and from cardiac perspetive would be preferred for dual antiplatelet for 3 more mons. He would try to connect with family and discuss and decide based on risk/benefit explanation with them. Active Medications Amlodipine Besylate (Norvasc -) 5 mg PO DAILY REPLACED BY [facility] Last Admin: 09/05/17 09:12 Dose: 5 mg Aspirin (Asa -) 81 mg PO DAILY REPLACED BY [facility] Last Admin: 09/05/17 09:12 Dose: 81 mg Atorvastatin Calcium (Lipitor -) 80 mg PO HS REPLACED BY [facility] Last Admin: 09/05/17 21:03 Dose: 80 mg Clopidogrel Bisulfate (Plavix -) 75 mg PO DAILY REPLACED BY [facility] Last Admin: 09/05/17 09:12 Dose: 75 mg Darunavir (Prezista -) 600 mg PO BID REPLACED BY [facility] Last Admin: 09/05/17 21:04 Dose: 600 mg Etravirine (Intelence -) 200 mg PO BID REPLACED BY [facility] Last Admin: 09/05/17 21:05 Dose: 200 mg Gabapentin (Neurontin -) 400 mg PO TID REPLACED BY [facility] Last Admin: 09/06/17 06:56 Dose: 400 mg Heparin Sodium (Porcine) (Heparin -) 1,000 unit IVPUSH PRN PRN PRN Reason: Heparin Heparin Sodium (Porcine) (Heparin -) 5,000 unit IVPUSH PRN PRN PRN Reason: Heparin Last Admin: 09/05/17 09:33 Dose: 5,000 unit HEPARIN SOD,PORK IN 0.45% NACL (Heparin-1/2ns 25,000 Units/500) 25,000 units in 500 mls @ 20 mls/hr IVPB TITR [facility]ILNER; 1,000 UNITS/HR PRN Reason: Protocol Last Admin: 09/05/17 22:50 Dose: 1,000 units/hr, 20 mls/hr Insulin Aspart (Novolog Vial Sliding Scale -) 1 vial SQ ACHS [facility] PRN Reason: Protocol Last Admin: 09/06/17 06:59 Dose: Not Given Insulin Detemir (Levemir Vial) 15 units SQ BID@0700,2200 REPLACED BY [facility] Last Admin: 09/06/17 06:58 Dose: 15 units Metoprolol Succinate (Toprol Xl -) 100 mg PO DAILY REPLACED BY [facility] Last Admin: 09/05/17 09:12 Dose: 100 mg Non-Formulary Medication (Daclatasvir Dihydrochloride [Daklinza]) 60 mg PO DAILY REPLACED BY [facility] Pantoprazole Sodium (Protonix -) 40 mg PO DAILY REPLACED BY [facility] Last Admin: 09/05/17 09:13 Dose: 40 mg Raltegravir (Isentress -) 400 mg PO BID REPLACED BY [facility] Last Admin: 09/05/17 21:04 Dose: 400 mg Warfarin Sodium (Coumadin -) 7.5 mg PO DAILY@1800 REPLACED BY [facility] Last Admin: 09/05/17 17:35 Dose: 7.5 mg PHYSICAL EXAMINATION Vital Signs Period Temp Pulse Resp BP Sys/Stallings Pulse Ox Last 24 Hr 98.0 F-98.9 F 81-88 18-22 132-158/73-90 95 GENERAL: Awake, alert, and fully oriented, in no acute respiratory distress, eating a sandwich. HEAD: Normal with no signs of trauma. 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 Moist mucous membranes. NECK: Normal range of motion, supple, no JVD. LUNGS: Dull lung bases, Breath sounds equal, basal creps bilaterally, no wheeze or rhonchi. No accessory muscle use. HEART: Tachycardic, S1 and S2 without murmur, rub or gallop. ABDOMEN: Soft, nontender, distended/obese, normoactive bowel sounds, no guarding MUSCULOSKELETAL: Normal range of motion at all joints. R big toe mild subungual swelling and hematoma. No CVA tenderness. UPPER EXTREMITIES: 2+ pulses, warm, well-perfused. LOWER EXTREMITIES: 2+ pulses, warm, well-perfused. No calf tenderness. Bilateral pitting peripheral edema, up to knee. NEUROLOGICAL: Normal speech. No facial droop, normal tone, limited participation, strength grossly intact, sensory intact, gait deferred CBCD WBC 7.3 K/mm3 (4.0-10.0) 09/06/17 08:45 RBC 3.30 M/mm3 (3.60-5.2) L 09/06/17 08:45 Hgb 10.0 GM/dL (10.7-15.3) L 09/06/17 08:45 Hct 30.4 % (32.4-45.2) L 09/06/17 08:45 MCV 92.1 fl (80-96) 09/06/17 08:45 MCHC 32.9 g/dl (32.0-36.0) 09/06/17 08:45 RDW 14.5 % (11.6-15.6) 09/06/17 08:45 Plt Count 211 K/MM3 (134-434) 09/06/17 08:45 MPV 9.3 fl (7.5-11.1) 09/06/17 08:45 CMP Sodium 142 mmol/L (136-145) 09/05/17 07:35 Potassium 3.7 mmol/L (3.5-5.1) 09/05/17 07:35 Chloride 106 mmol/L (98-107) 09/05/17 07:35 Carbon Dioxide 30 mmol/L (21-32) 09/05/17 07:35 Anion Gap 6 (8-16) L 09/05/17 07:35 BUN 26 mg/dL (7-18) H 09/05/17 07:35 Creatinine 2.2 mg/dL (0.55-1.02) H 09/05/17 07:35 Creat Clearance w eGFR 22.20 (>60) 09/05/17 07:35 Calcium 8.5 mg/dL (8.5-10.1) 09/05/17 07:35 Total Bilirubin 1.2 mg/dL (0.2-1.0) H D 09/05/17 07:35 AST 11 U/L (15-37) L 09/05/17 07:35 ALT 12 U/L (12-78) 09/05/17 07:35 Alkaline Phosphatase 69 U/L (45-117) 09/05/17 07:35 Total Protein 6.2 g/dl (6.4-8.2) L 09/05/17 07:35 Albumin 2.3 g/dl (3.4-5.0) L 09/05/17 07:35 CT head reviewed ASSESSMENT/PLAN: 66 yo F with PMHx of diastolic CHF(last ECHO-07/07), [place] (s/p stent placement 2015, 12/2016), IDDM, HTN, HLD, HIV and small SDH 04/2016, recent admission for PNA (07/09) presenting with a 4 day hx of SOB, worse on exertion, worsening orthopnea and PND,( has been unable to sleep for days), weight gain (30lbs in one month) and bilateral pedal edema. Per notes, she said she has been gaining weight despite regular exercise in the gym. 4 days prior to admission she reported running out of her lasix (40mg daily) and was unable to reach her primary care physician to refill her medications and thus develop respiratory difficulty and presented to the hospital. CXR noted to have diffuse pulmonary vascular congestion with possible L pleural effusion. I was consulted regarding prior subdural hematoma as patient with reported DVT and for AC. CT head compelted and reviewed and no acute changes noted. Evidence of prior craniotomy in R frontal region. No new neurologic deficits. Based on this, she does has baseline risk of bleed as any patient with prior hemorrhage. Patient started on AC, denies any issues. No bleeding. No change in mental status, appears at baseline neurologic status. Ct head if any acute changes in mental status deterioration. Monitor mental status, neuro exam, currently stable. She is on dual antiplatelet as well and spoke with Dr. Montoya yesterday. Preference would be to have her on single antiplatelet while on AC. However, stent placed 9 mons ago and from cardiac perspetive would be preferred for dual antiplatelet for 3 more mons. He would try to connect with family and discuss and decide based on risk/benefit explanation with them. Will defer to cardiology and family decision. Thus far stable on AC.
[2017-09-06 09:47] LABS: ANION GAP 9 (8-16); BLOOD UREA NITROGEN 28 mg/dL (7-18); CALCIUM 8.5 mg/dL (8.5-10.1); CHLORIDE 106 mmol/L (98-107); CO2 24 mmol/L (21-32); CREATININE 2.3 mg/dL (0.55-1.02); GLUCOSE,RANDOM 188 mg/dL (74-106); POTASSIUM 3.6 mmol/L (3.5-5.1); SODIUM 139 mmol/L (136-145)
[2017-09-06] MEDS: CLOPIDOGREL BISULFATE 75 MG TABLET (FP) PO SCH (09:47)
[2017-09-06] MEDS: ASPIRIN 81 MG CHEWABLE TABLETS PO SCH (09:47)
[2017-09-06] MEDS: PANTOPRAZOLE 40 MG TABLET (FP) PO SCH (09:47)
[2017-09-06] MEDS: amLODIPine BESYLATE 5 MG TABLET (FP) PO SCH (09:47)
[2017-09-06] MEDS: RALTEGRAVIR POTASSIUM 400 MG TAB PO SCH ×2 (09:48→22:03)
[2017-09-06] MEDS: DARUNAVIR ETHANOLATE 600 MG TAB PO SCH ×2 (09:48→22:04)
[2017-09-06] MEDS: ETRAVIRINE 100 MG TABLET PO SCH ×2 (09:48→22:03)
[2017-09-06] MEDS: HEPARIN NA (PORCINE) 5,000 UNITS/ML 1ML VIAL IVPUSH PRN ×2 (10:00→18:21)
[2017-09-06] MEDS: HEPARIN SOD,PORK IN 0.45% NACL 25,000 UNITS/500 ML INFUS.BAG IVPB SCH ×2 (10:01→23:42)
--- NOTE | 2017-09-06 10:22 | PN ---
Teaching Attending Note Name of Resident: Henny Peraza ATTENDING PHYSICIAN STATEMENT I saw and evaluated the patient. I reviewed the resident's note and discussed the case with the resident. I agree with the resident's findings and plan as documented. SUBJECTIVE:asymptomatic. denies CP, SOB, fever, chills, cough, N/V/C/D OBJECTIVE: Last Vital Signs Temp Pulse Resp BP Pulse Ox 99.0 F 83 18 150/80 95 09/06/17 10:00 09/06/17 10:00 09/06/17 10:00 09/06/17 10:00 09/05/17 21:00 General NAD CV S1 S2 RRR no murmur/rub/gallop Lungs CTA B/L no wheezing/rales/rhonchi Extremities refused me to evaluate the legs ASSESSMENT AND PLAN: 66 yo F with acute on chronic diastolic HF exacerbation in the setting of not taking her lasix and right toe pain and swelling 1. acute on chronic diastolic heart failure exacerbation- now euvolemic. lasix being held. concern was raised for PE due to RLE DVT however VQ scan negative. will cont daily weights. will re-start lasix once kidney function is stable or if develops volume 2. RLE near occlusive Popliteal vein DVT- on heparin ggt. coumadin bridge Day # 4 today. cont coumadin 7.5mg. conversation between neuro and cardio. will continue triple therapy at this time with goal to be close to 2. pt understands risks. 3. NÉSTOR on CKD stage III- with nephrotic range proteinuria. Cr stabilized. would benefit from renal bx as has multiple of risk factors however pt requires anticoagulation. unable to perform at this time. nephro on board 4. CAD s/p PCI in 03/2016 and RCA x 2 in 12/2016- on asa/plavix. recent stent placement. as per cardio should be on triple therapy for 1 year. 5. Hyperlipidemia- increase to high intensity statin 6. Obesity 7. IDDM, poorly controlled- improved. cont current management. levemir 15 units BID and ISS. 8. HTN-improved. cont to adjust medication as needed 9. 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 11. 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 DVT ppx- hep ggt-coumadin bridge
--- NOTE | 2017-09-06 10:25 | PN ---
Progress Note, Physician History of Present Illness: Patient is a 66 year old black female with a significant past medical history of diastolic CHF, [place] (s/p stent placement 03/2016; additional stent about 3 months ago at [place], [place]), IDDM, HTN, HLD, obesity, HIV and small SDH 2016, who presents to the ED with complaints of difficulty breathing that began 5 days ago. Patient reports visiting her friend in [place] when she ran out of her medication 5 days go. She reports experiencing gradual shortness of breath over the 5 days until she could no longer bear it. Patient reports experiencing chronic cough as well as increased bilateral leg edema since taking her medication. Denies chest pain, Nausea, vomiting. Denies contact with sick individual, out of state travelling. Denies any other symptoms. Sedentary lifestyle. Allergies: None Social history: No smoking. No alcohol. No illicit drugs. Surgical history: coronary stents 2015 and 2017 - Current Medication List Current Medications: Active Medications Amlodipine Besylate (Norvasc -) 5 mg PO DAILY [facility] Last Admin: 09/06/17 09:47 Dose: 5 mg Aspirin (Asa -) 81 mg PO DAILY [facility] Last Admin: 09/06/17 09:47 Dose: 81 mg Atorvastatin Calcium (Lipitor -) 80 mg PO HS [facility] Last Admin: 09/05/17 21:03 Dose: 80 mg Clopidogrel Bisulfate (Plavix -) 75 mg PO DAILY [facility] Last Admin: 09/06/17 09:47 Dose: 75 mg Darunavir (Prezista -) 600 mg PO BID [facility] Last Admin: 09/06/17 09:48 Dose: 600 mg Etravirine (Intelence -) 200 mg PO BID [facility] Last Admin: 09/06/17 09:48 Dose: 200 mg Gabapentin (Neurontin -) 400 mg PO TID [facility] Last Admin: 09/06/17 06:56 Dose: 400 mg Heparin Sodium (Porcine) (Heparin -) 1,000 unit IVPUSH PRN PRN PRN Reason: Heparin Last Admin: 09/06/17 10:00 Dose: 1,000 unit Heparin Sodium (Porcine) (Heparin -) 5,000 unit IVPUSH PRN PRN PRN Reason: Heparin Last Admin: 09/05/17 09:33 Dose: 5,000 unit HEPARIN SOD,PORK IN 0.45% NACL (Heparin-1/2ns 25,000 Units/500) 25,000 units in 500 mls @ 20 mls/hr IVPB TITR [facility]; 1,000 UNITS/HR PRN Reason: Protocol Last Admin: 09/06/17 10:01 Dose: 1,100 units/hr, 22 mls/hr Insulin Aspart (Novolog Vial Sliding Scale -) 1 vial SQ ACHS [facility] PRN Reason: Protocol Last Admin: 09/06/17 06:59 Dose: Not Given Insulin Detemir (Levemir Vial) 15 units SQ BID@0700,2200 [facility] Last Admin: 09/06/17 06:58 Dose: 15 units Metoprolol Succinate (Toprol Xl -) 100 mg PO DAILY [facility] Last Admin: 09/06/17 09:47 Dose: 100 mg Non-Formulary Medication (Daclatasvir Dihydrochloride [Daklinza]) 60 mg PO DAILY [facility] Pantoprazole Sodium (Protonix -) 40 mg PO DAILY [facility] Last Admin: 09/06/17 09:47 Dose: 40 mg Raltegravir (Isentress -) 400 mg PO BID [facility] Last Admin: 09/06/17 09:48 Dose: 400 mg Warfarin Sodium (Coumadin -) 7.5 mg PO DAILY@1800 [facility] Last Admin: 09/05/17 17:35 Dose: 7.5 mg - Objective Vital Signs: Vital Signs Temperature 99.0 F 09/06/17 10:00 Pulse Rate 83 09/06/17 10:00 Respiratory Rate 18 09/06/17 10:00 Blood Pressure 150/80 09/06/17 10:00 O2 Sat by Pulse Oximetry (%) 95 09/05/17 21:00 Eyes: Yes: WNL, Conjunctiva Clear, EOM Intact HENT: Yes: WNL, Atraumatic, Normocephalic Neck: Yes: WNL, Supple, Trachea Midline Cardiovascular: Yes: WNL, Regular Rate and Rhythm Respiratory: Yes: WNL, Regular, CTA Bilaterally Gastrointestinal: Yes: WNL, Normal Bowel Sounds Genitourinary: Yes: WNL Musculoskeletal: Yes: WNL Extremities: Yes: WNL Edema: No Integumentary: Yes: WNL Neurological: Yes: WNL, Alert, Oriented ...Motor Strength: WNL Psychiatric: Yes: WNL Labs: CBC, BMP 09/06/17 08:45 09/06/17 08:45 INR, PTT INR 1.13 (0.82-1.09) 09/06/17 08:45 Assessment/Plan - Problems (1) HTN (hypertension) Code(s): I10 - ESSENTIAL (PRIMARY) HYPERTENSION Qualifiers: Hypertension type: unspecified Qualified Code(s): I10 - Essential (primary ) hypertension (2) Acute on chronic systolic and diastolic heart failure, NYHA class 2 Code(s): I50.43 - ACUTE ON CHRONIC COMBINED SYSTOLIC AND DIASTOLIC HRT FAIL (3) DVT (deep venous thrombosis) Code(s): I82.409 - ACUTE EMBOLISM AND THOMBOS UNSP DEEP VN UNSP LOWER EXTREMITY Qualifiers: DVT location: upper extremity (4) Gout Code(s): M10.9 - GOUT, UNSPECIFIED (5) Obesity Code(s): E66.9 - OBESITY, UNSPECIFIED (6) Sleep apnea Code(s): G47.30 - SLEEP APNEA, UNSPECIFIED (7) CAD (coronary artery disease) Code(s): I25.10 - ATHSCL HEART DISEASE OF [place] CORONARY ARTERY W/O ANG PCTRS (8) CKD (chronic kidney disease) Code(s): N18.9 - CHRONIC KIDNEY DISEASE, UNSPECIFIED Qualifiers: Chronic kidney disease stage: unspecified stage Qualified Code(s): N18.9 - Chronic kidney disease, unspecified (9) Diabetes Code(s): E11.9 - TYPE 2 DIABETES MELLITUS WITHOUT COMPLICATIONS (10) HIV (human immunodeficiency virus infection) Code(s): Z21 - ASYMPTOMATIC HUMAN IMMUNODEFICIENCY VIRUS INFECTION STATUS (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 Pt is presently already on anticoagulant for DVT. She is also being treated for systollic/diastolic CHF. 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 As the latest was late 2016, she should ideally continue both ASA and clopidogrel for at least a year after the procedure; this was discussed with Dr. Almazan, pt's neurologist. Addition of warfarin significantly increases risk of bleed, but is required because of DVT. If pt and family agree to continuing all three agents, INR level should be monitored frequently to keep as uniformly close to 2.0 as possible (weekly checks would be best). If an antiplatelet is to be discontinued, agree with stopping clopidogrel. Code(s): Z87.828 - PERSONAL HISTORY OF OTH (HEALED) PHYSICAL INJURY AND TRAUMA (13) Pulmonary hypertension Code(s): I27.20 - PULMONARY HYPERTENSION, UNSPECIFIED
[2017-09-06] MEDS ORDERED: INSULIN (NOVOLOG) ASPART 100 UNITS/ML 10ML VIAL ONE (11:20)
--- NOTE | 2017-09-06 11:20 | PN ---
Progress Note (short form) - Note Progress Note: PULMONARY AWAKE/ALERT/LOW GRADE TEMP NO COUGH/NOT SOB NO JVD CHEST CLEAR S1S2 BS+ OBESE 1+EDEMA B/L LOWER EXT LABS/MEDS/NOTES/IMAGES REVIEWED (1) DVT (deep venous thrombosis) Code(s): I82.409 - ACUTE EMBOLISM AND THOMBOS UNSP DEEP VN UNSP LOWER EXTREMITY (2) CHF (congestive heart failure) Code(s): I50.9 - HEART FAILURE, UNSPECIFIED Qualifiers: Heart failure type: unspecified Heart failure chronicity: unspecified Qualified Code(s): I50.9 - Heart failure, unspecified (3) Acute pulmonary edema Code(s): J81.0 - ACUTE PULMONARY EDEMA (4) Cerebrovascular accident (CVA) Code(s): I63.9 - CEREBRAL INFARCTION, UNSPECIFIED Qualifiers: CVA mechanism: unspecified Qualified Code(s): I63.9 - Cerebral infarction, unspecified (5) Hyperlipidemia Code(s): E78.5 - HYPERLIPIDEMIA, UNSPECIFIED (6) Hypertriglyceridemia Code(s): E78.1 - PURE HYPERGLYCERIDEMIA (7) Intracranial hemorrhage Code(s): I62.9 - NONTRAUMATIC INTRACRANIAL HEMORRHAGE, UNSPECIFIED (8) Stented coronary artery Code(s): Z95.5 - PRESENCE OF CORONARY ANGIOPLASTY IMPLANT AND GRAFT (9) CAD (coronary artery disease) Code(s): I25.10 - ATHSCL HEART DISEASE OF [place] CORONARY ARTERY W/O ANG PCTRS (10) CKD (chronic kidney disease) Code(s): N18.9 - CHRONIC KIDNEY DISEASE, UNSPECIFIED Qualifiers: Chronic kidney disease stage: unspecified stage Qualified Code(s): N18.9 - Chronic kidney disease, unspecified (11) Diabetes Code(s): E11.9 - TYPE 2 DIABETES MELLITUS WITHOUT COMPLICATIONS (12) HIV (human immunodeficiency virus infection) Code(s): Z21 - ASYMPTOMATIC HUMAN IMMUNODEFICIENCY VIRUS INFECTION STATUS (13) H/O traumatic subdural hematoma Code(s): Z87.828 - PERSONAL HISTORY OF OTH (HEALED) PHYSICAL INJURY AND TRAUMA (14) Pulmonary hypertension Code(s): I27.20 - PULMONARY HYPERTENSION, UNSPECIFIED IMP ACUTE ON CHRONIC DIASTOLIC CHF RLE DVT (LOW PROBABILITY V/Q) CKD PULMONARY HTN H/O SDH H/O HIV H/O CVA LIKELY OSAS ASHD S/P NV S/P STENT PLAN AC: IV HEPARIN/COUMADIN O2 NEEDED FORMAL SLEEP W/UP AFTER D/C R FERNANDO MORSE
--- NOTE | 2017-09-06 14:13 | PN ---
Progress Note, Physician Chief Complaint: Ptr sitting up at bediside; denies chest pain or shortness of breath. History of Present Illness: Patient is a 66 year old black female with a significant past medical history of diastolic CHF, [place] (s/p stent placement 03/2016; additional stent about 3 months ago at [place], [place]), IDDM, HTN, HLD, obesity, HIV and small SDH 2016, who presents to the ED with complaints of difficulty breathing that began 5 days ago. Patient reports visiting her friend in [place] when she ran out of her medication 5 days go. She reports experiencing gradual shortness of breath over the 5 days until she could no longer bear it. Patient reports experiencing chronic cough as well as increased bilateral leg edema since taking her medication. Denies chest pain, Nausea, vomiting. Denies contact with sick individual, out of state travelling. Denies any other symptoms. Sedentary lifestyle. Allergies: None Social history: No smoking. No alcohol. No illicit drugs. Surgical history: coronary stents 2015 and 2017 - Current Medication List Current Medications: Active Medications Amlodipine Besylate (Norvasc -) 5 mg PO DAILY [facility] Last Admin: 09/06/17 09:47 Dose: 5 mg Aspirin (Asa -) 81 mg PO DAILY [facility] Last Admin: 09/06/17 09:47 Dose: 81 mg Atorvastatin Calcium (Lipitor -) 80 mg PO HS [facility] Last Admin: 09/05/17 21:03 Dose: 80 mg Clopidogrel Bisulfate (Plavix -) 75 mg PO DAILY [facility] Last Admin: 09/06/17 09:47 Dose: 75 mg Darunavir (Prezista -) 600 mg PO BID [facility] Last Admin: 09/06/17 09:48 Dose: 600 mg Etravirine (Intelence -) 200 mg PO BID [facility] Last Admin: 09/06/17 09:48 Dose: 200 mg Gabapentin (Neurontin -) 400 mg PO TID [facility] Last Admin: 09/06/17 13:58 Dose: 400 mg Heparin Sodium (Porcine) (Heparin -) 1,000 unit IVPUSH PRN PRN PRN Reason: Heparin Last Admin: 09/06/17 10:00 Dose: 1,000 unit Heparin Sodium (Porcine) (Heparin -) 5,000 unit IVPUSH PRN PRN PRN Reason: Heparin Last Admin: 09/05/17 09:33 Dose: 5,000 unit HEPARIN SOD,PORK IN 0.45% NACL (Heparin-1/2ns 25,000 Units/500) 25,000 units in 500 mls @ 20 mls/hr IVPB TITR [facility]; 1,000 UNITS/HR PRN Reason: Protocol Last Admin: 09/06/17 10:01 Dose: 1,100 units/hr, 22 mls/hr Insulin Aspart (Novolog Vial Sliding Scale -) 1 vial SQ ACHS [facility] PRN Reason: Protocol Last Admin: 09/06/17 11:21 Dose: 8 units Insulin Detemir (Levemir Vial) 15 units SQ BID@0700,2200 [facility] Last Admin: 09/06/17 06:58 Dose: 15 units Metoprolol Succinate (Toprol Xl -) 100 mg PO DAILY [facility] Last Admin: 09/06/17 09:47 Dose: 100 mg Pantoprazole Sodium (Protonix -) 40 mg PO DAILY [facility] Last Admin: 09/06/17 09:47 Dose: 40 mg Raltegravir (Isentress -) 400 mg PO BID [facility] Last Admin: 09/06/17 09:48 Dose: 400 mg Warfarin Sodium (Coumadin -) 7.5 mg PO DAILY@1800 [facility] Last Admin: 09/05/17 17:35 Dose: 7.5 mg - Objective Vital Signs: Vital Signs Temperature 99.0 F 09/06/17 10:00 Pulse Rate 83 09/06/17 10:00 Respiratory Rate 18 09/06/17 10:00 Blood Pressure 150/80 09/06/17 10:00 O2 Sat by Pulse Oximetry (%) 95 09/05/17 21:00 Constitutional: Yes: Calm Eyes: Yes: WNL HENT: Yes: WNL Neck: Yes: WNL Cardiovascular: Yes: S1, S2 Respiratory: Yes: Regular Gastrointestinal: Yes: Soft ...Rectal Exam: Yes: Deferred Genitourinary: No: Anuria Musculoskeletal: Yes: Joint Stiffness Extremities: Yes: Cool Edema: No Peripheral Pulses WNL: Yes Integumentary: Yes: WNL Psychiatric: Yes: Alert, Oriented Labs: CBC, BMP 09/06/17 08:45 09/06/17 08:45 INR, PTT INR 1.13 (0.82-1.09) 09/06/17 08:45 Problem List - Problems (1) HTN (hypertension) Assessment/Plan: On metorpolol succinate ( 100 mg daily); on amlodipine. If renal function improves, add ACEI or ARB for HTN and renal protection with DM (and may stop amlodipine then if BP falls too precipitously). Otherwise, consider starting hydralazine + isordil. (ECHO mildly reduced LVEF, with ?noncompaction of LV. Code(s): I10 - ESSENTIAL (PRIMARY) HYPERTENSION Qualifiers: Hypertension type: unspecified Qualified Code(s): I10 - Essential (primary ) hypertension (2) Acute on chronic systolic and diastolic heart failure, NYHA class 2 Assessment/Plan: Increased metoprolol. ?Noncompaction syndrome (LV); f/u cardiac records, Consider cardiac MRI as oupatient, if not recently done. Renal dysfunction precludes use of ACEI or ARB presently. Code(s): I50.43 - ACUTE ON CHRONIC COMBINED SYSTOLIC AND DIASTOLIC HRT FAIL (3) DVT (deep venous thrombosis) Assessment/Plan: DVT of lower extremity. Unable to do CTA to r/o PE due to renal dysfunction. Started anticoagulation (warfarin). Unless evidnec of bleed or other hemtologic abnormalities,recommend continuing with ASA and clopidogrel (CAD-->DEStents in 2016 and 12/2016).Pt says she prefers the triple therapy. Code(s): I82.409 - ACUTE EMBOLISM AND THOMBOS UNSP DEEP VN UNSP LOWER EXTREMITY Qualifiers: DVT location: upper extremity (4) Gout Code(s): M10.9 - GOUT, UNSPECIFIED (5) Obesity Code(s): E66.9 - OBESITY, UNSPECIFIED (6) Sleep apnea Code(s): G47.30 - SLEEP APNEA, UNSPECIFIED (7) CAD (coronary artery disease) Assessment/Plan: s/p SD-->stents (the latest was 11/2016 at [facility]) F/u records. 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 Pt is presently already on anticoagulant for DVT. She is also being treated for systollic/diastolic CHF. 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 As the latest was late 2016, she should ideally continue both ASA and clopidogrel for at least a year after the procedure; this was discussed with Dr. Almazan, pt's neurologist. Addition of warfarin significantly increases risk of bleed, but is required because of DVT. If pt and family agree to continuing all three agents, INR level should be monitored frequently to keep as uniformly close to 2.0 as possible (weekly checks would be best). If an antiplatelet is to be discontinued, agree with stopping clopidogrel. I discussed the above with the patient today. She says she wants to continue the two antiplatelets and warfarin. She says she makes her own health decisions , not her daughter.This should be ascertained. Code(s): Z87.828 - PERSONAL HISTORY OF OTH (HEALED) PHYSICAL INJURY AND TRAUMA (13) Pulmonary hypertension Code(s): I27.20 - PULMONARY HYPERTENSION, UNSPECIFIED
--- NOTE | 2017-09-06 15:02 | PN ---
Progress Note, Physician History of Present Illness: Pt seen and examined at bedside. She denies shortness of breath. She is awake and alert. - Current Medication List Current Medications: Active Medications Amlodipine Besylate (Norvasc -) 5 mg PO DAILY [facility] Last Admin: 09/06/17 09:47 Dose: 5 mg Aspirin (Asa -) 81 mg PO DAILY [facility] Last Admin: 09/06/17 09:47 Dose: 81 mg Atorvastatin Calcium (Lipitor -) 80 mg PO HS [facility] Last Admin: 09/05/17 21:03 Dose: 80 mg Clopidogrel Bisulfate (Plavix -) 75 mg PO DAILY [facility] Last Admin: 09/06/17 09:47 Dose: 75 mg Darunavir (Prezista -) 600 mg PO BID [facility] Last Admin: 09/06/17 09:48 Dose: 600 mg Etravirine (Intelence -) 200 mg PO BID [facility] Last Admin: 09/06/17 09:48 Dose: 200 mg Gabapentin (Neurontin -) 400 mg PO TID [facility] Last Admin: 09/06/17 13:58 Dose: 400 mg Heparin Sodium (Porcine) (Heparin -) 1,000 unit IVPUSH PRN PRN PRN Reason: Heparin Last Admin: 09/06/17 10:00 Dose: 1,000 unit Heparin Sodium (Porcine) (Heparin -) 5,000 unit IVPUSH PRN PRN PRN Reason: Heparin Last Admin: 09/05/17 09:33 Dose: 5,000 unit HEPARIN SOD,PORK IN 0.45% NACL (Heparin-1/2ns 25,000 Units/500) 25,000 units in 500 mls @ 20 mls/hr IVPB TITR [facility]; 1,000 UNITS/HR PRN Reason: Protocol Last Admin: 09/06/17 10:01 Dose: 1,100 units/hr, 22 mls/hr Insulin Aspart (Novolog Vial Sliding Scale -) 1 vial SQ ACHS [facility] PRN Reason: Protocol Last Admin: 09/06/17 11:21 Dose: 8 units Insulin Detemir (Levemir Vial) 15 units SQ BID@0700,2200 [facility] Last Admin: 09/06/17 06:58 Dose: 15 units Metoprolol Succinate (Toprol Xl -) 100 mg PO DAILY [facility] Last Admin: 09/06/17 09:47 Dose: 100 mg Pantoprazole Sodium (Protonix -) 40 mg PO DAILY [facility] Last Admin: 09/06/17 09:47 Dose: 40 mg Raltegravir (Isentress -) 400 mg PO BID [facility] Last Admin: 09/06/17 09:48 Dose: 400 mg Warfarin Sodium (Coumadin -) 7.5 mg PO DAILY@1800 [facility] Last Admin: 09/05/17 17:35 Dose: 7.5 mg - Objective Vital Signs: Vital Signs Temperature 99.0 F 09/06/17 10:00 Pulse Rate 83 09/06/17 10:00 Respiratory Rate 18 09/06/17 10:00 Blood Pressure 150/80 09/06/17 10:00 O2 Sat by Pulse Oximetry (%) 98 09/06/17 09:00 Constitutional: Yes: Calm Eyes: Yes: Conjunctiva Clear HENT: Yes: Atraumatic Neck: Yes: Supple Cardiovascular: Yes: S1, S2 Respiratory: Yes: CTA Bilaterally Gastrointestinal: Yes: Normal Bowel Sounds, Soft Genitourinary: Yes: WNL Musculoskeletal: Yes: WNL Edema: Yes Edema: RLE: Trace Neurological: Yes: Oriented Psychiatric: Yes: Oriented Labs: CBC, BMP 09/06/17 08:45 09/06/17 08:45 INR, PTT INR 1.13 (0.82-1.09) 09/06/17 08:45 Problem List - Problems (1) Acute on chronic diastolic CHF (congestive heart failure) Code(s): I50.33 - ACUTE ON CHRONIC DIASTOLIC (CONGESTIVE) HEART FAILURE (2) NÉSTOR (acute kidney injury) Code(s): N17.9 - ACUTE KIDNEY FAILURE, UNSPECIFIED (3) HIV (human immunodeficiency virus infection) Code(s): Z21 - ASYMPTOMATIC HUMAN IMMUNODEFICIENCY VIRUS INFECTION STATUS (4) HTN (hypertension) Code(s): I10 - ESSENTIAL (PRIMARY) HYPERTENSION Qualifiers: Hypertension type: unspecified Qualified Code(s): I10 - Essential (primary ) hypertension Assessment/Plan Current Medications Generic Name Dose Route Start Last Admin Trade Name Freq PRN Reason Stop Dose Admin Amlodipine Besylate 5 mg 09/05/17 10:00 09/06/17 09:47 Norvasc - PO 5 mg DAILY [facility] Administration Aspirin 81 mg 09/05/17 10:00 09/06/17 09:47 Asa - PO 81 mg DAILY [facility] Administration Atorvastatin Calcium 80 mg 09/05/17 22:00 09/05/17 21:03 Lipitor - PO 80 mg HS [facility] Administration Clopidogrel Bisulfate 75 mg 09/05/17 10:00 09/06/17 09:47 Plavix - PO 75 mg DAILY [facility] Administration Darunavir 600 mg 09/05/17 10:00 09/06/17 09:48 Prezista - PO 600 mg BID [facility] Administration Etravirine 200 mg 09/05/17 10:00 09/06/17 09:48 Intelence - PO 200 mg BID [facility] Administration Gabapentin 400 mg 09/05/17 14:00 09/06/17 13:58 Neurontin - PO 400 mg TID [facility] Administration Heparin Sodium (Porcine) 1,000 unit 09/05/17 08:09 09/06/17 10:00 Heparin - IVPUSH 1,000 unit PRN PRN Administration Heparin Heparin Sodium (Porcine) 5,000 unit 09/05/17 08:09 09/05/17 09:33 Heparin - IVPUSH 5,000 unit PRN PRN Administration Heparin HEPARIN SOD,PORK IN 0.45% NACL 25,000 units in 500 mls @ 20 mls/hr 09/05/17 08 :09 09/06/17 10:01 Heparin-1/2ns 25,000 Units/500 IVPB 1,100 units/hr TITR [facility] 22 mls/hr Protocol Administration 1,000 UNITS/HR Insulin Aspart 1 vial 09/05/17 11:00 09/06/17 11:21 Novolog Vial Sliding Scale - SQ 8 units ACHS [facility] Administration Protocol Insulin Detemir 15 units 09/06/17 07:00 09/06/17 06:58 Levemir Vial SQ 15 units BID@0700,2200 [facility] Administration Metoprolol Succinate 100 mg 09/05/17 10:00 09/06/17 09:47 Toprol Xl - PO 100 mg DAILY [facility] Administration Pantoprazole Sodium 40 mg 09/05/17 10:00 09/06/17 09:47 Protonix - PO 40 mg DAILY [facility] Administration Raltegravir 400 mg 09/05/17 10:00 09/06/17 09:48 Isentress - PO 400 mg BID [facility] Administration Warfarin Sodium 7.5 mg 09/05/17 18:00 09/05/17 17:35 Coumadin - PO 7.5 mg DAILY@1800 [facility] Administration Laboratory Tests 09/03/17 09/06/17 15:00 10:10 Stool Occult Blood Negative MERY Screen Negative c-ANCA Pending Proteinase 3 (PR3) Pending p-ANCA Pending Atypical p-ANCA Pending Myeloperoxidase Ab Pending Double Strand DNA Ab <1 Impression 1. NÉSTOR 2. nephrotic range proteinuria 3. CHF 4. DVT 5. HIV 6. DM 7. subdural hematoma 8. CAD Plan - cont to monitor renal function - workup in progress - will need better glucose control as a1c is elevated - will need to clarify how controlled her HIV is - cont to monitor renal function
[2017-09-06 16:31] LABS: ATYPICAL pANCA <1:20 titer (Neg:<1:20); C-ANCA <1:20 titer (Neg:<1:20); P-ANCA <1:20 titer (Neg:<1:20); PROTEINASE-3 ANTIBODY <3.5 U/mL (0.0-3.5)
[2017-09-06] MEDS: WARFARIN NA 7.5 MG TABLET (FP) PO SCH (17:48)
[2017-09-06] MEDS: ATORVASTATIN CA 80 MG TABLET (FP) PO SCH (22:04)
[2017-09-07] MEDS: HEPARIN NA (PORCINE) 5,000 UNITS/ML 1ML VIAL IVPUSH PRN (01:38)
[2017-09-07] MEDS: GABAPENTIN 400 MG CAPSULE (FP) PO SCH ×3 (05:41→22:28)
[2017-09-07] MEDS: INSULIN DETEMIR 100 UNITS/ML MDV SQ SCH ×2 (06:44→22:34)
[2017-09-07] MEDS: INSULIN SLIDING SCALE (NOVOLOG) 1 VIAL SQ SCH ×4 (06:44→22:33)
[2017-09-07 07:24] LABS: BASO % 0.7 % (0-2.0); EOS % 3.8 % (0-4.5); HEMATOCRIT 29.6 % (32.4-45.2); HEMOGLOBIN 9.9 GM/dL (10.7-15.3); LYMPH % 24.4 % (8-40); MCH 31.1 pg (25.7-33.7); MCHC 33.5 g/dl (32.0-36.0); MEAN CELL VOLUME 92.7 fl (80-96); MEAN PLT VOLUME 9.7 fl (7.5-11.1); MONO % 9.5 % (3.8-10.2); NEUT % 61.6 % (42.8-82.8); PLATELET COUNT 221 K/MM3 (134-434); RBC 3.19 M/mm3 (3.60-5.2); RDW 14.4 % (11.6-15.6); WHITE BLOOD COUNT 6.1 K/mm3 (4.0-10.0)
[2017-09-07 07:58] LABS: INR 1.31 (0.82-1.09); PROTHROMBIN TIME (PATIENT) 14.8 SEC (9.7-13.0)
[2017-09-07 08:03] LABS: ACTIVATED PTT 90.7 SECONDS (26.9-34.4)
[2017-09-07 08:32] LABS: ANION GAP 5 (8-16); BLOOD UREA NITROGEN 29 mg/dL (7-18); CALCIUM 8.4 mg/dL (8.5-10.1); CHLORIDE 106 mmol/L (98-107); CO2 30 mmol/L (21-32); CREATININE 2.2 mg/dL (0.55-1.02); GLUCOSE,RANDOM 177 mg/dL (74-106); POTASSIUM 3.9 mmol/L (3.5-5.1); SODIUM 141 mmol/L (136-145)
[2017-09-07] MEDS: PANTOPRAZOLE 40 MG TABLET (FP) PO SCH (10:25)
[2017-09-07] MEDS: CLOPIDOGREL BISULFATE 75 MG TABLET (FP) PO SCH (10:25)
[2017-09-07] MEDS: ASPIRIN 81 MG CHEWABLE TABLETS PO SCH (10:25)
[2017-09-07] MEDS: amLODIPine BESYLATE 5 MG TABLET (FP) PO SCH (10:25)
[2017-09-07] MEDS ORDERED: PT OWN MED DRAWER 7, Y5N ONE (10:27)
[2017-09-07] MEDS: RALTEGRAVIR POTASSIUM 400 MG TAB PO SCH ×2 (10:28→22:28)
[2017-09-07] MEDS: DARUNAVIR ETHANOLATE 600 MG TAB PO SCH ×2 (10:28→22:29)
[2017-09-07] MEDS: ETRAVIRINE 100 MG TABLET PO SCH ×2 (10:28→22:29)
[2017-09-07] MEDS: HEPARIN SOD,PORK IN 0.45% NACL 25,000 UNITS/500 ML INFUS.BAG IVPB SCH ×2 (10:29→22:31)
--- NOTE | 2017-09-07 10:50 | PN ---
Progress Note (short form) - Note Progress Note: PULMONARY VSS/AFEBRILE INR 1.31 LYING COMFORTABLY IN BED WITHOUT COMPLAINTS ANICTERIC CHEST CLEAR S1S2 BS+ NO CALF TENDERNESS/TRACE EDEMA LABS/MEDS/NOTES REVIEWED IMP ACUTE ON CHRONIC DIASTOLIC CHF RLE DVT (LOW PROBABILITY V/Q) CKD PULMONARY HTN H/O SDH H/O HIV H/O CVA LIKELY OSAS ASHD S/P NM S/P STENT PLAN AC: IV HEPARIN/COUMADIN O2 NEEDED FORMAL SLEEP W/UP AFTER D/C R FERNANDO MORSE
--- NOTE | 2017-09-07 10:53 | PN ---
Progress Note (short form) - Note Progress Note: RENAL Pt is awake and alert comfortable denies complaints Last Vital Signs Temp Pulse Resp BP Pulse Ox 97.2 F L 89 18 128/77 98 09/07/17 10:00 09/07/17 10:00 09/07/17 10:00 09/07/17 10:00 09/06/17 21:00 lungs clear cvs s1s2 rr abd soft ext trace edema neuro a+ox3 skin no rash, has a violaceous papule on right forearm CBC, BMP 09/07/17 06:00 09/07/17 06:00 Current Medications Generic Name Dose Route Start Last Admin Trade Name Freq PRN Reason Stop Dose Admin Amlodipine Besylate 5 mg 09/05/17 10:00 09/07/17 10:25 Norvasc - PO 5 mg DAILY [facility] Administration Aspirin 81 mg 09/05/17 10:00 09/07/17 10:25 Asa - PO 81 mg DAILY [facility] Administration Atorvastatin Calcium 80 mg 09/05/17 22:00 09/06/17 22:04 Lipitor - PO 80 mg HS [facility] Administration Clopidogrel Bisulfate 75 mg 09/05/17 10:00 09/07/17 10:25 Plavix - PO 75 mg DAILY [facility] Administration Darunavir 600 mg 09/05/17 10:00 09/07/17 10:28 Prezista - PO 600 mg BID [facility] Administration Etravirine 200 mg 09/05/17 10:00 09/07/17 10:28 Intelence - PO 200 mg BID [facility] Administration Gabapentin 400 mg 09/05/17 14:00 09/07/17 05:41 Neurontin - PO 400 mg TID [facility] Administration Heparin Sodium (Porcine) 1,000 unit 09/05/17 08:09 09/06/17 18:21 Heparin - IVPUSH 1,000 unit PRN PRN Administration Heparin Heparin Sodium (Porcine) 5,000 unit 09/05/17 08:09 09/07/17 01:38 Heparin - IVPUSH 5,000 unit PRN PRN Administration Heparin HEPARIN SOD,PORK IN 0.45% NACL 25,000 units in 500 mls @ 20 mls/hr 09/05/17 08 :09 09/07/17 10:29 Heparin-1/2ns 25,000 Units/500 IVPB Not Given TITR [facility] Protocol 1,000 UNITS/HR Insulin Aspart 1 vial 09/05/17 11:00 09/07/17 06:44 Novolog Vial Sliding Scale - SQ 2 units ACHS [facility] Administration Protocol Insulin Detemir 15 units 09/06/17 07:00 09/07/17 06:44 Levemir Vial SQ 15 units BID@0700,2200 [facility] Administration Metoprolol Succinate 100 mg 09/05/17 10:00 09/07/17 10:25 Toprol Xl - PO 100 mg DAILY [facility] Administration Pantoprazole Sodium 40 mg 09/05/17 10:00 09/07/17 10:25 Protonix - PO 40 mg DAILY [facility]EN[facility] Administration Raltegravir 400 mg 09/05/17 10:00 09/07/17 10:28 Isentress - PO 400 mg BID [facility] Administration Warfarin Sodium 7.5 mg 09/05/17 18:00 09/06/17 17:48 Coumadin - PO 7.5 mg DAILY@1800 [facility] Administration Impression 1. NÉSTOR 2. nephrotic range proteinuria- fsgs vs 3. CHF 4. DVT 5. HIV 6. DM 7. 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 CAD Plan - cont to monitor renal function - workup in progress - will need better glucose control as a1c is elevated - will need to clarify how controlled her HIV is - cont to monitor renal function -continue anticoagulation -derm evaluation MV
--- NOTE | 2017-09-07 11:03 | PN ---
Progress Note (short form) - Note Progress Note: c/o increased R foot pain at the top of her foot consistent with diabetic neuropathy. denies Cp, SOB, fever, chills, N/V/C/D Current Medications Generic Name Dose Route Start Last Admin Trade Name Freq PRN Reason Stop Dose Admin Amlodipine Besylate 5 mg 09/05/17 10:00 09/07/17 10:25 Norvasc - PO 5 mg DAILY [facility] Administration Aspirin 81 mg 09/05/17 10:00 09/07/17 10:25 Asa - PO 81 mg DAILY [facility] Administration Atorvastatin Calcium 80 mg 09/05/17 22:00 09/06/17 22:04 Lipitor - PO 80 mg HS [facility] Administration Clopidogrel Bisulfate 75 mg 09/05/17 10:00 09/07/17 10:25 Plavix - PO 75 mg DAILY [facility] Administration Darunavir 600 mg 09/05/17 10:00 09/07/17 10:28 Prezista - PO 600 mg BID [facility] Administration Etravirine 200 mg 09/05/17 10:00 09/07/17 10:28 Intelence - PO 200 mg BID [facility] Administration Gabapentin 400 mg 09/05/17 14:00 09/07/17 05:41 Neurontin - PO 400 mg TID [facility] Administration Heparin Sodium (Porcine) 1,000 unit 09/05/17 08:09 09/06/17 18:21 Heparin - IVPUSH 1,000 unit PRN PRN Administration Heparin Heparin Sodium (Porcine) 5,000 unit 09/05/17 08:09 09/07/17 01:38 Heparin - IVPUSH 5,000 unit PRN PRN Administration Heparin HEPARIN SOD,PORK IN 0.45% NACL 25,000 units in 500 mls @ 20 mls/hr 09/05/17 08 :09 09/07/17 10:29 Heparin-1/2ns 25,000 Units/500 IVPB Not Given TITR [facility] Protocol 1,000 UNITS/HR Insulin Aspart 1 vial 09/05/17 11:00 09/07/17 06:44 Novolog Vial Sliding Scale - SQ 2 units ACHS [facility] Administration Protocol Insulin Detemir 15 units 09/06/17 07:00 09/07/17 06:44 Levemir Vial SQ 15 units BID@0700,2200 [facility] Administration Metoprolol Succinate 100 mg 09/05/17 10:00 09/07/17 10:25 Toprol Xl - PO 100 mg DAILY [facility] Administration Pantoprazole Sodium 40 mg 09/05/17 10:00 09/07/17 10:25 Protonix - PO 40 mg DAILY [facility] Administration Raltegravir 400 mg 09/05/17 10:00 09/07/17 10:28 Isentress - PO 400 mg BID [facility] Administration Warfarin Sodium 7.5 mg 09/05/17 18:00 09/06/17 17:48 Coumadin - PO 7.5 mg DAILY@1800 [facility] Administration Last Vital Signs Temp Pulse Resp BP Pulse Ox 97.2 F L 89 18 128/77 98 09/07/17 10:00 09/07/17 10:00 09/07/17 10:00 09/07/17 10:00 09/06/17 21:00 General NAD CV S1 S2 RRR no murmur/rub/gallop Lungs CTA B/L no wheezing/rales/rhonchi Extremities tender to light touch, no edema CBCD WBC 6.1 K/mm3 (4.0-10.0) 09/07/17 06:00 RBC 3.19 M/mm3 (3.60-5.2) L 09/07/17 06:00 Hgb 9.9 GM/dL (10.7-15.3) L 09/07/17 06:00 Hct 29.6 % (32.4-45.2) L 09/07/17 06:00 MCV 92.7 fl (80-96) 09/07/17 06:00 MCHC 33.5 g/dl (32.0-36.0) 09/07/17 06:00 RDW 14.4 % (11.6-15.6) 09/07/17 06:00 Plt Count 221 K/MM3 (134-434) 09/07/17 06:00 MPV 9.7 fl (7.5-11.1) 09/07/17 06:00 CMP Sodium 141 mmol/L (136-145) 09/07/17 06:00 Potassium 3.9 mmol/L (3.5-5.1) 09/07/17 06:00 Chloride 106 mmol/L (98-107) 09/07/17 06:00 Carbon Dioxide 30 mmol/L (21-32) 09/07/17 06:00 Anion Gap 5 (8-16) L 09/07/17 06:00 BUN 29 mg/dL (7-18) H 09/07/17 06:00 Creatinine 2.2 mg/dL (0.55-1.02) H 09/07/17 06:00 Creat Clearance w eGFR 22.20 (>60) 09/05/17 07:35 Calcium 8.4 mg/dL (8.5-10.1) L 09/07/17 06:00 Total Bilirubin 1.2 mg/dL (0.2-1.0) H D 09/05/17 07:35 AST 11 U/L (15-37) L 09/05/17 07:35 ALT 12 U/L (12-78) 09/05/17 07:35 Alkaline Phosphatase 69 U/L (45-117) 09/05/17 07:35 Total Protein 6.2 g/dl (6.4-8.2) L 09/05/17 07:35 Albumin 2.3 g/dl (3.4-5.0) L 09/05/17 07:35 ASSESSMENT AND PLAN: 66 yo F with acute on chronic diastolic HF exacerbation in the setting of not taking her lasix and right toe pain and swelling 1. acute on chronic diastolic heart failure exacerbation- now euvolemic. lasix being held. RN reports SOB on movement however pt denies. she does not want to go back on her lasix as it "doesnt work anyway". concern was raised for PE due to RLE DVT however VQ scan negative. will cont daily weights. will re-start lasix once kidney function is stable or if develops volume 2. RLE near occlusive Popliteal vein DVT- on heparin ggt. coumadin bridge Day # 5 today. increase coumadin to 10mg. discussed with patient about triple therapy. asked what will happen if she bled into her head again and explained that treatment options in this are limited and often unable to reverse damage done according to how much bleeding is noted. she said she does not want to be on medications unless abosultely necessary. explained medications are necessary however there are risks. states she would like to stop one medication at least to reduce risk of bleeding. will stop plavix at this time. will monitor hgb closely while on anticoagulation and antiplatelet. 3. NÉSTOR on CKD stage III- with nephrotic range proteinuria. Cr stabilized. would benefit from renal bx as has multiple of risk factors however pt requires anticoagulation. unable to perform at this time. nephro on board 4. CAD s/p PCI in 03/2016 and RCA x 2 in 12/2016- was recommended to be on asa/ plavix. will d/c plavix at this time in light of conversation today. 5. peripheral neuropathy- worse especially in R foot. will increase gabapentin to 500mg TID. 6. Hyperlipidemia- increase to high intensity statin 7. Obesity 8. IDDM, poorly controlled-sugars remain elevated in the evening. will increase levemir to 20 units in the AM and cont with 25 units in the evening. cont to titrate as needed. 9. HTN-improved. cont to adjust medication as needed 10. 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 12. 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 DVT ppx- hep ggt-coumadin bridge Visit type - Emergency Visit Emergency Visit: Yes ED Registration Date: 08/29/17 Care time: The patient presented to the Emergency Department on the above date and was hospitalized for further evaluation of their emergent condition. - New Patient This patient is new to me today: No - Critical Care Critical Care patient: No - Discharge Referral Referred to [facility] Med P.C.: No
[2017-09-07] MEDS ORDERED: INSULIN DETEMIR 100 UNITS/ML MDV SQ ONE ×3 (11:04→15:08)
[2017-09-07] MEDS ORDERED: WARFARIN NA 7.5 MG TABLET (FP) PO SCH (11:06)
--- NOTE | 2017-09-07 17:38 | PN ---
Progress Note, Physician Chief Complaint: Ptr sitting up at bediside; denies chest pain or shortness of breath. History of Present Illness: Patient is a 66 year old black female with a significant past medical history of diastolic CHF, [place] (s/p stent placement 03/2016; additional stent about 3 months ago at [place], [place]), IDDM, HTN, HLD, obesity, HIV and small SDH 2016, who presents to the ED with complaints of difficulty breathing that began 5 days ago. Patient reports visiting her friend in [place] when she ran out of her medication 5 days go. She reports experiencing gradual shortness of breath over the 5 days until she could no longer bear it. Patient reports experiencing chronic cough as well as increased bilateral leg edema since taking her medication. Denies chest pain, Nausea, vomiting. Denies contact with sick individual, out of state travelling. Denies any other symptoms. Sedentary lifestyle. Allergies: None Social history: No smoking. No alcohol. No illicit drugs. Surgical history: coronary stents 2015 and 2017 - Current Medication List Current Medications: Active Medications Amlodipine Besylate (Norvasc -) 5 mg PO DAILY [facility] Last Admin: 09/07/17 10:25 Dose: 5 mg Aspirin (Asa -) 81 mg PO DAILY [facility] Last Admin: 09/07/17 10:25 Dose: 81 mg Atorvastatin Calcium (Lipitor -) 80 mg PO HS [facility] Last Admin: 09/06/17 22:04 Dose: 80 mg Darunavir (Prezista -) 600 mg PO BID [facility] Last Admin: 09/07/17 10:28 Dose: 600 mg Etravirine (Intelence -) 200 mg PO BID [facility] Last Admin: 09/07/17 10:28 Dose: 200 mg Gabapentin (Neurontin -) 400 mg PO TID [facility] Last Admin: 09/07/17 15:11 Dose: 400 mg Heparin Sodium (Porcine) (Heparin -) 1,000 unit IVPUSH PRN PRN PRN Reason: Heparin Last Admin: 09/06/17 18:21 Dose: 1,000 unit Heparin Sodium (Porcine) (Heparin -) 5,000 unit IVPUSH PRN PRN PRN Reason: Heparin Last Admin: 09/07/17 01:38 Dose: 5,000 unit HEPARIN SOD,PORK IN 0.45% NACL (Heparin-1/2ns 25,000 Units/500) 25,000 units in 500 mls @ 20 mls/hr IVPB TITR WILNER; 1,000 UNITS/HR PRN Reason: Protocol Last Admin: 09/07/17 10:29 Dose: Not Given Insulin Aspart (Novolog Vial Sliding Scale -) 1 vial SQ ACHS [facility] PRN Reason: Protocol Last Admin: 09/07/17 16:44 Dose: 4 units Insulin Detemir (Levemir Vial) 15 units SQ HS [facility] Insulin Detemir (Levemir Vial) 20 units SQ AM [facility] Metoprolol Succinate (Toprol Xl -) 100 mg PO DAILY [facility] Last Admin: 09/07/17 10:25 Dose: 100 mg Pantoprazole Sodium (Protonix -) 40 mg PO DAILY [facility] Last Admin: 09/07/17 10:25 Dose: 40 mg Raltegravir (Isentress -) 400 mg PO BID [facility] Last Admin: 09/07/17 10:28 Dose: 400 mg Warfarin Sodium (Coumadin -) 10 mg PO DAILY@1800 [facility] - Objective Vital Signs: Vital Signs Temperature 98.4 F 09/07/17 13:29 Pulse Rate 90 09/07/17 13:29 Respiratory Rate 20 09/07/17 13:29 Blood Pressure 132/76 09/07/17 13:29 O2 Sat by Pulse Oximetry (%) 98 09/06/17 21:00 Constitutional: Yes: Calm Eyes: Yes: WNL HENT: Yes: WNL Neck: Yes: WNL Cardiovascular: Yes: Regular Rate and Rhythm, S1, S2 Gastrointestinal: Yes: Soft ...Rectal Exam: Yes: Deferred Genitourinary: No: Anuria Musculoskeletal: Yes: Muscle Weakness Extremities: Yes: Cool Edema: No Peripheral Pulses WNL: Yes Integumentary: Yes: WNL Neurological: Yes: Alert, Oriented, Weakness Labs: CBC, BMP 09/07/17 06:00 09/07/17 06:00 INR, PTT INR 1.31 (0.82-1.09) H 09/07/17 06:00 Problem List - Problems (1) HTN (hypertension) Assessment/Plan: On metorpolol succinate ( 100 mg daily); on amlodipine. If renal function improves, add ACEI or ARB for HTN and renal protection with DM (and may stop amlodipine then if BP falls too precipitously). Otherwise, consider starting hydralazine + isordil. (ECHO mildly reduced LVEF, with ?noncompaction of LV. Code(s): I10 - ESSENTIAL (PRIMARY) HYPERTENSION Qualifiers: Hypertension type: unspecified Qualified Code(s): I10 - Essential (primary ) hypertension (2) Acute on chronic systolic and diastolic heart failure, NYHA class 2 Assessment/Plan: Increased metoprolol. ?Noncompaction syndrome (LV); f/u cardiac records, Consider cardiac MRI as oupatient, if not recently done. Renal dysfunction precludes use of ACEI or ARB presently. Code(s): I50.43 - ACUTE ON CHRONIC COMBINED SYSTOLIC AND DIASTOLIC HRT FAIL (3) DVT (deep venous thrombosis) Assessment/Plan: DVT of lower extremity. Unable to do CTA to r/o PE due to renal dysfunction. Started anticoagulation (warfarin). Unless evidnence of bleed or other hematologic abnormalities,recommend continuing with ASA and clopidogrel (CAD-->DEStents in 2015 and 12/2016).Pt says she prefers the triple therapy. Code(s): I82.409 - ACUTE EMBOLISM AND THOMBOS UNSP DEEP VN UNSP LOWER EXTREMITY Qualifiers: DVT location: upper extremity (4) Gout Code(s): M10.9 - GOUT, UNSPECIFIED (5) Obesity Code(s): E66.9 - OBESITY, UNSPECIFIED (6) Sleep apnea Code(s): G47.30 - SLEEP APNEA, UNSPECIFIED (7) CAD (coronary artery disease) Assessment/Plan: s/p [place]-->stents (the latest was 11/2016 at [facility]) F/u records. Code(s): I25.10 - ATHSCL HEART DISEASE OF [place] CORONARY ARTERY W/O ANG PCTRS (8) CKD (chronic kidney disease) Assessment/Plan: f/u with critical care technician. Code(s): N18.9 - CHRONIC KIDNEY DISEASE, UNSPECIFIED Qualifiers: Chronic kidney disease stage: unspecified stage Qualified Code(s): N18.9 - Chronic kidney disease, unspecified (9) Diabetes Code(s): E11.9 - TYPE 2 DIABETES MELLITUS WITHOUT COMPLICATIONS (10) HIV (human immunodeficiency virus infection) Assessment/Plan: on multiple antiviral. 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 Pt is presently already on anticoagulant for DVT. She is also being treated for systollic/diastolic CHF. 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 As the latest was late 2016, she should ideally continue both ASA and clopidogrel for at least a year after the procedure; this was discussed with Dr. Almazan, pt's neurologist. Addition of warfarin significantly increases risk of bleed, but is required because of DVT. If pt and family agree to continuing all three agents, INR level should be monitored frequently to keep as uniformly close to 2.0 as possible (weekly checks would be best). If an antiplatelet is to be discontinued, agree with stopping clopidogrel. I discussed the above with the patient today. She says she wants to continue the two antiplatelets and warfarin. She says she makes her own health decisions , not her daughter.This should be ascertained. Code(s): Z87.828 - PERSONAL HISTORY OF OTH (HEALED) PHYSICAL INJURY AND TRAUMA (13) Pulmonary hypertension Code(s): I27.20 - PULMONARY HYPERTENSION, UNSPECIFIED
[2017-09-07] MEDS: WARFARIN NA 10 MG TABLET (FP) PO SCH (19:22)
[2017-09-07] MEDS: ATORVASTATIN CA 80 MG TABLET (FP) PO SCH (22:28)
[2017-09-08] MEDS ORDERED: INSULIN (NOVOLOG) ASPART 100 UNITS/ML 10ML VIAL ONE ×2 (05:22→20:18)
[2017-09-08] MEDS: GABAPENTIN 400 MG CAPSULE (FP) PO SCH ×3 (06:42→22:43)
[2017-09-08] MEDS: INSULIN SLIDING SCALE (NOVOLOG) 1 VIAL SQ SCH ×5 (06:42→22:47)
[2017-09-08] MEDS: INSULIN DETEMIR 100 UNITS/ML MDV SQ SCH ×2 (06:43→22:48)
[2017-09-08 08:04] LABS: HEMATOCRIT 30.2 % (32.4-45.2); HEMOGLOBIN 9.8 GM/dL (10.7-15.3); MCH 30.3 pg (25.7-33.7); MCHC 32.4 g/dl (32.0-36.0); MEAN CELL VOLUME 93.5 fl (80-96); MEAN PLT VOLUME 9.7 fl (7.5-11.1); PLATELET COUNT 229 K/MM3 (134-434); RBC 3.23 M/mm3 (3.60-5.2); RDW 14.5 % (11.6-15.6); WHITE BLOOD COUNT 5.3 K/mm3 (4.0-10.0)
[2017-09-08 08:16] LABS: INR 1.61 (0.82-1.09); PROTHROMBIN TIME (PATIENT) 18.2 SEC (9.7-13.0)
[2017-09-08 08:43] LABS: BLOOD UREA NITROGEN 30 mg/dL (7-18); CALCIUM 8.4 mg/dL (8.5-10.1); CO2 29 mmol/L (21-32); CREATININE 2.3 mg/dL (0.55-1.02); GLUCOSE,RANDOM 160 mg/dL (74-106)
[2017-09-08 09:43] LABS: ANION GAP 6 (8-16); CHLORIDE 106 mmol/L (98-107); POTASSIUM 4.2 mmol/L (3.5-5.1); SODIUM 141 mmol/L (136-145)
--- NOTE | 2017-09-08 10:43 | PN ---
Progress Note (short form) - Note Progress Note: RENAL Pt is awake and alert comfortable denies complaints wants to go home Last Vital Signs Temp Pulse Resp BP Pulse Ox 98.2 F 84 20 131/78 98 09/08/17 06:00 09/08/17 06:00 09/08/17 06:00 09/08/17 06:00 09/07/17 21:00 lungs clear cvs s1s2 rr abd soft ext trace edema neuro a+ox3 skin no rash, has a violaceous papule on right forearm CBC, BMP 09/08/17 06:00 09/08/17 06:00 Current Medications Generic Name Dose Route Start Last Admin Trade Name Freq PRN Reason Stop Dose Admin Amlodipine Besylate 5 mg 09/05/17 10:00 09/07/17 10:25 Norvasc - PO 5 mg DAILY [facility] Administration Aspirin 81 mg 09/05/17 10:00 09/07/17 10:25 Asa - PO 81 mg DAILY [facility] Administration Atorvastatin Calcium 80 mg 09/05/17 22:00 09/07/17 22:28 Lipitor - PO 80 mg HS [facility] Administration Darunavir 600 mg 09/05/17 10:00 09/07/17 22:29 Prezista - PO 600 mg BID [facility] Administration Etravirine 200 mg 09/05/17 10:00 09/07/17 22:29 Intelence - PO 200 mg BID [facility] Administration Gabapentin 400 mg 09/07/17 14:00 09/08/17 06:42 Neurontin - PO 400 mg TID [facility] Administration Heparin Sodium (Porcine) 1,000 unit 09/05/17 08:09 09/06/17 18:21 Heparin - IVPUSH 1,000 unit PRN PRN Administration Heparin Heparin Sodium (Porcine) 5,000 unit 09/05/17 08:09 09/07/17 01:38 Heparin - IVPUSH 5,000 unit PRN PRN Administration Heparin HEPARIN SOD,PORK IN 0.45% NACL 25,000 units in 500 mls @ 20 mls/hr 09/05/17 08 :09 09/07/17 22:31 Heparin-1/2ns 25,000 Units/500 IVPB 1,250 units/hr TITR WILNER 25 mls/hr Protocol Administration 1,000 UNITS/HR Insulin Aspart 1 vial 09/05/17 11:00 09/08/17 06:42 Novolog Vial Sliding Scale - SQ Not Given ACHS [facility] Protocol Insulin Detemir 15 units 09/07/17 22:00 09/07/17 22:34 Levemir Vial SQ 15 units HS [facility] Administration Insulin Detemir 20 units 09/08/17 07:00 09/08/17 06:43 Levemir Vial SQ 20 units AM [facility] Administration Metoprolol Succinate 100 mg 09/05/17 10:00 09/07/17 10:25 Toprol Xl - PO 100 mg DAILY [facility] Administration Pantoprazole Sodium 40 mg 09/05/17 10:00 09/07/17 10:25 Protonix - PO 40 mg DAILY [facility] Administration Raltegravir 400 mg 09/05/17 10:00 09/07/17 22:28 Isentress - PO 400 mg BID [facility] Administration Warfarin Sodium 10 mg 09/07/17 19:15 09/07/17 19:22 Coumadin - PO 10 mg DAILY@1800 [facility] Administration Impression 1. NÉSTOR 2. nephrotic range proteinuria- fsgs vs hivan vs membranous 3. CHF 4. DVT 5. HIV 6. DM 7. 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 CAD Plan - cont to monitor renal function - workup in progress - will need better glucose control as a1c is elevated - will need to clarify how controlled her HIV is - cont to monitor renal function -continue anticoagulation -derm evaluation MV
[2017-09-08] MEDS ORDERED: PT OWN MED DRAWER 7, Y5N ONE (11:23)
[2017-09-08] MEDS: amLODIPine BESYLATE 5 MG TABLET (FP) PO SCH (11:26)
[2017-09-08] MEDS: PANTOPRAZOLE 40 MG TABLET (FP) PO SCH (11:26)
[2017-09-08] MEDS: ASPIRIN 81 MG CHEWABLE TABLETS PO SCH (11:26)
[2017-09-08] MEDS: RALTEGRAVIR POTASSIUM 400 MG TAB PO SCH ×2 (11:26→22:43)
[2017-09-08] MEDS: ETRAVIRINE 100 MG TABLET PO SCH ×2 (11:27→22:43)
[2017-09-08] MEDS: DARUNAVIR ETHANOLATE 600 MG TAB PO SCH ×2 (11:27→22:43)
--- NOTE | 2017-09-08 11:32 | PN ---
Physical Exam: SUBJECTIVE: Patient seen and examined at bedside. Pt eating salted pistachios. When told by attending she should not be eating salted snacks, pt replied, "I'm not eating them unsalted. I'm finishing the bag." No other complaints. Afebrile. OBJECTIVE: Vital Signs Period Temp Pulse Resp BP Sys/Stallings Pulse Ox Last 24 Hr 98.1 F-98.4 F 78-90 18-20 131-153/73-80 98 GENERAL: The patient is awake, alert, and fully oriented, in no acute distress. HEAD: Normal with no signs of trauma. EYES: conjunctiva clear. Right ptosis. ENT: oropharynx clear without exudates, moist mucous membranes. NECK: Trachea midline, full range of motion, supple. LUNGS: Breath sounds equal, clear to auscultation bilaterally, no wheezes, no crackles, no accessory muscle use. HEART: Regular rate and rhythm, S1, S2 without murmur, rub or gallop. ABDOMEN: Soft, nontender, nondistended, normoactive bowel sounds, no guarding, no rebound, no hepatosplenomegaly, no masses. EXTREMITIES: 2+ pulses, warm, well-perfused, no edema. NEUROLOGICAL: Cranial nerves II through XII grossly intact. Normal speech, gait not observed. PSYCH: Normal mood, normal affect. SKIN: Warm, dry, normal turgor, no rashes or lesions noted Laboratory Results - last 24 hr 09/07/17 09/07/17 09/07/17 11:25 13:45 16:29 WBC RBC Hgb Hct MCV MCH MCHC RDW Plt Count MPV PT with INR INR PTT (Actin FS) 67.5 H Sodium Potassium Chloride Carbon Dioxide Anion Gap BUN Creatinine POC Glucometer 312 220 Random Glucose Calcium 09/07/17 09/08/17 09/08/17 22:33 06:00 06:00 WBC 5.3 RBC 3.23 L Hgb 9.8 L Hct 30.2 L MCV 93.5 MCH 30.3 MCHC 32.4 RDW 14.5 Plt Count 229 MPV 9.7 PT with INR INR PTT (Actin FS) 79.9 H Sodium Potassium Chloride Carbon Dioxide Anion Gap BUN Creatinine POC Glucometer 338 Random Glucose Calcium 09/08/17 09/08/17 09/08/17 06:00 06:00 06:41 WBC RBC Hgb Hct MCV MCH MCHC RDW Plt Count MPV PT with INR 18.20 H INR 1.61 H PTT (Actin FS) Sodium 141 Potassium 4.2 Chloride 106 Carbon Dioxide 29 Anion Gap 6 L BUN 30 H Creatinine 2.3 H POC Glucometer 149 Random Glucose 160 H Calcium 8.4 L Active Medications Generic Name Dose Route Start Last Admin Trade Name Freq PRN Reason Stop Dose Admin Amlodipine Besylate 5 mg 09/05/17 10:00 09/07/17 10:25 Norvasc - PO 5 mg DAILY [facility] Administration Aspirin 81 mg 09/05/17 10:00 09/07/17 10:25 Asa - PO 81 mg DAILY [facility] Administration Atorvastatin Calcium 80 mg 09/05/17 22:00 09/07/17 22:28 Lipitor - PO 80 mg HS [facility] Administration Darunavir 600 mg 09/05/17 10:00 09/07/17 22:29 Prezista - PO 600 mg BID [facility] Administration Etravirine 200 mg 09/05/17 10:00 09/07/17 22:29 Intelence - PO 200 mg BID [facility] Administration Gabapentin 400 mg 09/07/17 14:00 09/08/17 06:42 Neurontin - PO 400 mg TID [facility] Administration Heparin Sodium (Porcine) 1,000 unit 09/05/17 08:09 09/06/17 18:21 Heparin - IVPUSH 1,000 unit PRN PRN Administration Heparin Heparin Sodium (Porcine) 5,000 unit 09/05/17 08:09 09/07/17 01:38 Heparin - IVPUSH 5,000 unit PRN PRN Administration Heparin HEPARIN SOD,PORK IN 0.45% NACL 25,000 units in 500 mls @ 20 mls/hr 09/05/17 08 :09 09/07/17 22:31 Heparin-1/2ns 25,000 Units/500 IVPB 1,250 units/hr TITR [facility] 25 mls/hr Protocol Administration 1,000 UNITS/HR Insulin Aspart 1 vial 09/05/17 11:00 09/08/17 06:42 Novolog Vial Sliding Scale - SQ Not Given ACHS [facility] Protocol Insulin Detemir 15 units 09/07/17 22:00 09/07/17 22:34 Levemir Vial SQ 15 units HS [facility] Administration Insulin Detemir 20 units 09/08/17 07:00 09/08/17 06:43 Levemir Vial SQ 20 units AM [facility] Administration Metoprolol Succinate 100 mg 09/05/17 10:00 09/07/17 10:25 Toprol Xl - PO 100 mg DAILY [facility] Administration Pantoprazole Sodium 40 mg 09/05/17 10:00 09/07/17 10:25 Protonix - PO 40 mg DAILY [facility] Administration Raltegravir 400 mg 09/05/17 10:00 09/07/17 22:28 Isentress - PO 400 mg BID [facility] Administration Warfarin Sodium 10 mg 09/07/17 19:15 09/07/17 19:22 Coumadin - PO 10 mg DAILY@1800 [facility] Administration ASSESSMENT/PLAN: Pt is a 66 yo F with acute on chronic dCHF exacerbation in the setting of noncompliance with lasix and right toe pain and swelling. Pt admitted for CHF exacerbation and DVT found in hospital. #CHF exacerbation -2/2 noncompliance -euvolemic at this time -hold lasix -Cardio consult #DVT -R popliteal DVT -Confirmed by U/S -on Hep ggt -Coumadin bridge day 6 -V/Q neg -Heme/onc on board #NÉSTOR on CKD -[employer] stable -may need renal Bx as outpt -Nephro on board #CAD s/p PCI in 03/2016 and RCA x 2 in 12/2016 -recommended to be on ASA/Plavix -pt refusing plavix -ASA -Lipitor #IDDM -BGM -ISS -A1C 10.1 -DM Na controlled diet #Peripheral Neuropathy -Likely 2/2 poorly controlled DM -Gabapentin #HLD -Lipitor #HTN -Norvasc #Mitral regurg -cardio on board #Ventricular noncompaction syndrome -cardio on board #HIV -HAART #Prior CVA -on ASA and Lipitor -neuro on board #FEN -not on fluid -lytes wnl -DM/Na diet #PPx -Hep ggt Dyllan Gomez MD PGY-1 IM Visit type - Emergency Visit Emergency Visit: No - New Patient This patient is new to me today: Yes Date on this admission: 09/08/17 - Critical Care Critical Care patient: No - Discharge Referral Referred to [facility] Med P.C.: No
--- NOTE | 2017-09-08 12:16 | PN ---
Progress Note (short form) - Note Progress Note: PULMONARY VSS/AFEBRILE INR 1.61 LYING COMFORTABLY IN BED WITHOUT COMPLAINTS ANICTERIC CHEST CLEAR S1S2 BS+ NO CALF TENDERNESS/TRACE EDEMA LABS/MEDS/NOTES REVIEWED IMP ACUTE ON CHRONIC DIASTOLIC CHF RLE DVT (LOW PROBABILITY V/Q) CKD PULMONARY HTN H/O SDH H/O HIV H/O CVA LIKELY OSAS ASHD S/P MT S/P STENT PLAN AC: IV HEPARIN/COUMADIN O2 NEEDED FORMAL SLEEP W/UP AFTER D/C R FERNANDO MORSE
[2017-09-08] MEDS ORDERED: ACETAMINOPHEN 325 MG TABLET (FP) ONE (17:29)
[2017-09-08] MEDS: WARFARIN NA 10 MG TABLET (FP) PO SCH (17:40)
[2017-09-08] MEDS ORDERED: ACETAMINOPHEN 325 MG TABLET (FP) PO ONE (18:31)
[2017-09-08] MEDS: HEPARIN SOD,PORK IN 0.45% NACL 25,000 UNITS/500 ML INFUS.BAG IVPB SCH (19:08)
[2017-09-08] MEDS: ATORVASTATIN CA 80 MG TABLET (FP) PO SCH (22:43)
[2017-09-09] MEDS ORDERED: INSULIN (NOVOLOG) ASPART 100 UNITS/ML 10ML VIAL ONE (05:30)
[2017-09-09] MEDS: INSULIN SLIDING SCALE (NOVOLOG) 1 VIAL SQ SCH ×4 (06:37→21:31)
[2017-09-09] MEDS: INSULIN DETEMIR 100 UNITS/ML MDV SQ SCH ×2 (06:37→21:33)
[2017-09-09] MEDS: GABAPENTIN 400 MG CAPSULE (FP) PO SCH ×3 (06:37→21:20)
[2017-09-09 08:14] LABS: HEMATOCRIT 29.7 % (32.4-45.2); HEMOGLOBIN 9.8 GM/dL (10.7-15.3); MCH 30.5 pg (25.7-33.7); MEAN CELL VOLUME 92.5 fl (80-96); MEAN PLT VOLUME 9.8 fl (7.5-11.1); PLATELET COUNT 271 K/MM3 (134-434); RBC 3.21 M/mm3 (3.60-5.2); RDW 14.5 % (11.6-15.6); WHITE BLOOD COUNT 5.1 K/mm3 (4.0-10.0)
[2017-09-09 08:45] LABS: INR 2.25 (0.82-1.09); PROTHROMBIN TIME (PATIENT) 25.4 SEC (9.7-13.0)
[2017-09-09 08:51] LABS: CHLORIDE 109 mmol/L (98-107); SODIUM 142 mmol/L (136-145)
[2017-09-09] MEDS: HEPARIN SOD,PORK IN 0.45% NACL 25,000 UNITS/500 ML INFUS.BAG IVPB SCH ×3 (09:17→15:39)
[2017-09-09] MEDS: ASPIRIN 81 MG CHEWABLE TABLETS PO SCH (09:18)
[2017-09-09] MEDS: PANTOPRAZOLE 40 MG TABLET (FP) PO SCH (09:18)
[2017-09-09] MEDS: amLODIPine BESYLATE 5 MG TABLET (FP) PO SCH (09:18)
[2017-09-09] MEDS: ETRAVIRINE 100 MG TABLET PO SCH ×2 (09:18→21:20)
[2017-09-09] MEDS: DARUNAVIR ETHANOLATE 600 MG TAB PO SCH ×2 (09:19→21:20)
[2017-09-09] MEDS: RALTEGRAVIR POTASSIUM 400 MG TAB PO SCH ×2 (09:19→21:20)
--- NOTE | 2017-09-09 09:44 | PN ---
Progress Note (short form) - Note Progress Note: Neurology HISTORY OF PRESENT ILLNESS: 66 yo F with PMHx of diastolic CHF(last ECHO-07/07), CA (s/p stent placement 2015, 12/2016), IDDM, HTN, HLD, HIV and small SDH 04/2016, recent admission for PNA (07/09) presenting with a 4 day hx of SOB, worse on exertion, worsening orthopnea and PND,( has been unable to sleep for days), weight gain (30lbs in one month) and bilateral pedal edema. Per notes, she said she has been gaining weight despite regular exercise in the gym. 4 days prior to admission she reported running out of her lasix (40mg daily) and was unable to reach her primary care physician to refill her medications and thus develop respiratory difficulty and presented to the hospital. CXR noted to have diffuse pulmonary vascular congestion with possible L pleural effusion. I was consulted regarding prior subdural hematoma as patient with reported DVT and for AC. CT head completed and reviewed and no acute changes noted. Evidence of prior craniotomy in R frontal region. No new neurologic deficits. Patient started on AC, denies any issues. No bleeding. No change in mental status, appears at baseline neurologic status. She is on dual antiplatelet as well and spoke with Dr. Montoya, note reviewed. Per notes, patient wanted to remain on dual antiplatelet and AC with awareness of increased risk of bleed. Active Medications Amlodipine Besylate (Norvasc -) 5 mg PO DAILY [facility] Last Admin: 09/09/17 09:18 Dose: 5 mg Aspirin (Asa -) 81 mg PO DAILY [facility] Last Admin: 09/09/17 09:18 Dose: 81 mg Atorvastatin Calcium (Lipitor -) 80 mg PO HS [facility] Last Admin: 09/08/17 22:43 Dose: 80 mg Darunavir (Prezista -) 600 mg PO BID [facility] Last Admin: 09/09/17 09:19 Dose: 600 mg Etravirine (Intelence -) 200 mg PO BID [facility] Last Admin: 09/09/17 09:18 Dose: 200 mg Gabapentin (Neurontin -) 400 mg PO TID [facility] Last Admin: 09/09/17 06:37 Dose: 400 mg Heparin Sodium (Porcine) (Heparin -) 1,000 unit IVPUSH PRN PRN PRN Reason: Heparin Last Admin: 09/06/17 18:21 Dose: 1,000 unit Heparin Sodium (Porcine) (Heparin -) 5,000 unit IVPUSH PRN PRN PRN Reason: Heparin Last Admin: 09/07/17 01:38 Dose: 5,000 unit HEPARIN SOD,PORK IN 0.45% NACL (Heparin-1/2ns 25,000 Units/500) 25,000 units in 500 mls @ 20 mls/hr IVPB TITR [facility]; 1,000 UNITS/HR PRN Reason: Protocol Last Admin: 09/09/17 09:18 Dose: Not Given Insulin Aspart (Novolog Vial Sliding Scale -) 1 vial SQ ACHS [facility] PRN Reason: Protocol Last Admin: 09/09/17 06:37 Dose: 4 units Insulin Detemir (Levemir Vial) 15 units SQ HS [facility] Last Admin: 09/08/17 22:48 Dose: 15 units Insulin Detemir (Levemir Vial) 20 units SQ AM [facility] [place] Last Admin: 09/09/17 06:37 Dose: 20 units Metoprolol Succinate (Toprol Xl -) 100 mg PO DAILY [facility] [place] Last Admin: 09/09/17 09:18 Dose: 100 mg Pantoprazole Sodium (Protonix -) 40 mg PO DAILY [facility] [place] Last Admin: 09/09/17 09:18 Dose: 40 mg Raltegravir (Isentress -) 400 mg PO BID [facility] [place] Last Admin: 09/09/17 09:19 Dose: 400 mg Warfarin Sodium (Coumadin -) 10 mg PO DAILY@1800 [facility] [place] Last Admin: 09/08/17 17:40 Dose: 10 mg PHYSICAL EXAMINATION Vital Signs Temperature 98.0 F 09/09/17 06:00 Pulse Rate 78 09/09/17 06:00 Respiratory Rate 18 09/09/17 06:00 Blood Pressure 134/75 09/09/17 06:00 O2 Sat by Pulse Oximetry (%) 98 09/08/17 21:00 GENERAL: Awake, alert, and fully oriented, in no acute respiratory distress, eating a sandwich. HEAD: Normal with no signs of trauma. 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 Moist mucous membranes. NECK: Normal range of motion, supple, no JVD. LUNGS: Dull lung bases, Breath sounds equal, basal creps bilaterally, no wheeze or rhonchi. No accessory muscle use. HEART: Tachycardic, S1 and S2 without murmur, rub or gallop. ABDOMEN: Soft, nontender, distended/obese, normoactive bowel sounds, no guarding MUSCULOSKELETAL: Normal range of motion at all joints. R big toe mild subungual swelling and hematoma. No CVA tenderness. UPPER EXTREMITIES: 2+ pulses, warm, well-perfused. LOWER EXTREMITIES: 2+ pulses, warm, well-perfused. No calf tenderness. Bilateral pitting peripheral edema, up to knee. NEUROLOGICAL: Normal speech. No facial droop, normal tone, limited participation, strength grossly intact, sensory intact, gait deferred CBCD WBC 5.1 K/mm3 (4.0-10.0) 09/09/17 07:30 RBC 3.21 M/mm3 (3.60-5.2) L 09/09/17 07:30 Hgb 9.8 GM/dL (10.7-15.3) L 09/09/17 07:30 Hct 29.7 % (32.4-45.2) L 09/09/17 07:30 MCV 92.5 fl (80-96) 09/09/17 07:30 MCHC 33.0 g/dl (32.0-36.0) 09/09/17 07:30 RDW 14.5 % (11.6-15.6) 09/09/17 07:30 Plt Count 271 K/MM3 (134-434) 09/09/17 07:30 MPV 9.8 fl (7.5-11.1) 09/09/17 07:30 CMP Sodium 142 mmol/L (136-145) 09/09/17 07:30 Potassium 4.0 mmol/L (3.5-5.1) 09/09/17 07:30 Chloride 109 mmol/L (98-107) H 09/09/17 07:30 Carbon Dioxide 29 mmol/L (21-32) 09/08/17 06:00 Anion Gap 6 (8-16) L 09/08/17 06:00 BUN 30 mg/dL (7-18) H 09/08/17 06:00 Creatinine 2.3 mg/dL (0.55-1.02) H 09/08/17 06:00 Creat Clearance w eGFR 22.20 (>60) 09/05/17 07:35 Calcium 8.4 mg/dL (8.5-10.1) L 09/08/17 06:00 Total Bilirubin 1.2 mg/dL (0.2-1.0) H D 09/05/17 07:35 AST 11 U/L (15-37) L 09/05/17 07:35 ALT 12 U/L (12-78) 09/05/17 07:35 Alkaline Phosphatase 69 U/L (45-117) 09/05/17 07:35 Total Protein 6.2 g/dl (6.4-8.2) L 09/05/17 07:35 Albumin 2.3 g/dl (3.4-5.0) L 09/05/17 07:35 CT head reviewed ASSESSMENT/PLAN: 66 yo F with PMHx of diastolic CHF(last ECHO-07/07), CA (s/p stent placement 2015, 12/2016), IDDM, HTN, HLD, HIV and small SDH 04/2016, recent admission for PNA (07/09) presenting with a 4 day hx of SOB, worse on exertion, worsening orthopnea and PND,( has been unable to sleep for days), weight gain (30lbs in one month) and bilateral pedal edema. Per notes, she said she has been gaining weight despite regular exercise in the gym. 4 days prior to admission she reported running out of her lasix (40mg daily) and was unable to reach her primary care physician to refill her medications and thus develop respiratory difficulty and presented to the hospital. CXR noted to have diffuse pulmonary vascular congestion with possible L pleural effusion. I was consulted regarding prior subdural hematoma as patient with reported DVT and for AC. CT head compelted and reviewed and no acute changes noted. Evidence of prior craniotomy in R frontal region. No new neurologic deficits. Based on this, she does has baseline risk of bleed as any patient with prior hemorrhage. Patient started on AC, denies any issues. No bleeding. No change in mental status, appears at baseline neurologic status. Ct head if any acute changes in mental status deterioration. Monitor mental status, neuro exam, currently stable. She is on dual antiplatelet as well and spoke with Dr. Montoya. Preference would be to have her on single antiplatelet while on AC. However,from cardiac perspetive would be preferred for dual antiplatelet for 3 more mons with AC. Per notes, she would like to remain on both plavix and ASA with AC. Defer to cardiology and family decision. If able to remove on antiplatelet in several months, would encourage doing son. Thus far stable on AC and antiplatelet, no singificant neurologic changes.
[2017-09-09 09:45] LABS: ANION GAP 11 (8-16); BLOOD UREA NITROGEN 31 mg/dL (7-18); CALCIUM 8.1 mg/dL (8.5-10.1); CO2 21 mmol/L (21-32); CREATININE 2.2 mg/dL (0.55-1.02); GLUCOSE,RANDOM 174 mg/dL (74-106)
--- NOTE | 2017-09-09 10:28 | PN ---
Progress Note, Physician - Current Medication List Current Medications: Active Medications Amlodipine Besylate (Norvasc -) 5 mg PO DAILY [facility] Last Admin: 09/09/17 09:18 Dose: 5 mg Aspirin (Asa -) 81 mg PO DAILY [facility] Last Admin: 09/09/17 09:18 Dose: 81 mg Atorvastatin Calcium (Lipitor -) 80 mg PO HS [facility] Last Admin: 09/08/17 22:43 Dose: 80 mg Darunavir (Prezista -) 600 mg PO BID [facility] Last Admin: 09/09/17 09:19 Dose: 600 mg Etravirine (Intelence -) 200 mg PO BID [facility] Last Admin: 09/09/17 09:18 Dose: 200 mg Gabapentin (Neurontin -) 400 mg PO TID [facility] Last Admin: 09/09/17 06:37 Dose: 400 mg Heparin Sodium (Porcine) (Heparin -) 1,000 unit IVPUSH PRN PRN PRN Reason: Heparin Last Admin: 09/06/17 18:21 Dose: 1,000 unit Heparin Sodium (Porcine) (Heparin -) 5,000 unit IVPUSH PRN PRN PRN Reason: Heparin Last Admin: 09/07/17 01:38 Dose: 5,000 unit HEPARIN SOD,PORK IN 0.45% NACL (Heparin-1/2ns 25,000 Units/500) 25,000 units in 500 mls @ 20 mls/hr IVPB TITR [facility]; 1,000 UNITS/HR PRN Reason: Protocol Last Admin: 09/09/17 09:18 Dose: Not Given Insulin Aspart (Novolog Vial Sliding Scale -) 1 vial SQ ACHS [facility] PRN Reason: Protocol Last Admin: 09/09/17 06:37 Dose: 4 units Insulin Detemir (Levemir Vial) 15 units SQ HS [facility] Last Admin: 09/08/17 22:48 Dose: 15 units Insulin Detemir (Levemir Vial) 20 units SQ AM [facility] Last Admin: 09/09/17 06:37 Dose: 20 units Metoprolol Succinate (Toprol Xl -) 100 mg PO DAILY [facility] Last Admin: 09/09/17 09:18 Dose: 100 mg Pantoprazole Sodium (Protonix -) 40 mg PO DAILY [facility] Last Admin: 09/09/17 09:18 Dose: 40 mg Raltegravir (Isentress -) 400 mg PO BID [facility] Last Admin: 09/09/17 09:19 Dose: 400 mg Warfarin Sodium (Coumadin -) 10 mg PO DAILY@1800 [facility] Last Admin: 09/08/17 17:40 Dose: 10 mg - Objective Vital Signs: Vital Signs Temperature 98.0 F 09/09/17 10:00 Pulse Rate 93 H 09/09/17 10:00 Respiratory Rate 18 09/09/17 10:00 Blood Pressure 142/41 09/09/17 10:00 O2 Sat by Pulse Oximetry (%) 96 09/09/17 09:00 Eyes: Yes: WNL, Conjunctiva Clear, EOM Intact HENT: Yes: WNL, Atraumatic, Normocephalic Neck: Yes: WNL, Supple, Trachea Midline Cardiovascular: Yes: WNL, Regular Rate and Rhythm Respiratory: Yes: WNL, Regular, CTA Bilaterally Gastrointestinal: Yes: WNL, Normal Bowel Sounds Genitourinary: Yes: WNL Musculoskeletal: Yes: WNL Extremities: Yes: WNL Edema: No Integumentary: Yes: WNL Neurological: Yes: WNL, Alert, Oriented ...Motor Strength: WNL Psychiatric: Yes: WNL Labs: CBC, BMP 09/09/17 07:30 09/09/17 07:30 INR, PTT INR 2.25 (0.82-1.09) H D 09/09/17 07:30 Assessment/Plan - Problems (1) HTN (hypertension) Code(s): I10 - ESSENTIAL (PRIMARY) HYPERTENSION Qualifiers: Hypertension type: unspecified Qualified Code(s): I10 - Essential (primary ) hypertension (2) Acute on chronic systolic and diastolic heart failure, NYHA class 2 Code(s): I50.43 - ACUTE ON CHRONIC COMBINED SYSTOLIC AND DIASTOLIC HRT FAIL (3) DVT (deep venous thrombosis) Code(s): I82.409 - ACUTE EMBOLISM AND THOMBOS UNSP DEEP VN UNSP LOWER EXTREMITY Qualifiers: DVT location: upper extremity (4) Gout Code(s): M10.9 - GOUT, UNSPECIFIED (5) Obesity Code(s): E66.9 - OBESITY, UNSPECIFIED (6) Sleep apnea Code(s): G47.30 - SLEEP APNEA, UNSPECIFIED (7) CAD (coronary artery disease) Code(s): I25.10 - ATHSCL HEART DISEASE OF [place] CORONARY ARTERY W/O ANG PCTRS (8) CKD (chronic kidney disease) Code(s): N18.9 - CHRONIC KIDNEY DISEASE, UNSPECIFIED Qualifiers: Chronic kidney disease stage: unspecified stage Qualified Code(s): N18.9 - Chronic kidney disease, unspecified (9) Diabetes Code(s): E11.9 - TYPE 2 DIABETES MELLITUS WITHOUT COMPLICATIONS (10) HIV (human immunodeficiency virus infection) Code(s): Z21 - ASYMPTOMATIC HUMAN IMMUNODEFICIENCY VIRUS INFECTION STATUS (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
--- NOTE | 2017-09-09 10:45 | PN ---
Progress Note (short form) - Note Progress Note: PULMONARY Denies shortness of breath or chest pain. No leg pain. Last Vital Signs Temp Pulse Resp BP Pulse Ox 98.0 F 93 H 18 142/41 96 09/09/17 10:00 09/09/17 10:00 09/09/17 10:00 09/09/17 10:00 09/09/17 09:00 Gen: NAD at rest Heart: RRR Lung: decreased breath sounds at the bases Abd: soft, nontender Ext: no edema CBC, BMP 09/09/17 07:30 09/09/17 07:30 Active Medications Amlodipine Besylate (Norvasc -) 5 mg PO DAILY [facility] Last Admin: 09/09/17 09:18 Dose: 5 mg Aspirin (Asa -) 81 mg PO DAILY [facility] Last Admin: 09/09/17 09:18 Dose: 81 mg Atorvastatin Calcium (Lipitor -) 80 mg PO HS [facility] Last Admin: 09/08/17 22:43 Dose: 80 mg Darunavir (Prezista -) 600 mg PO BID [facility] Last Admin: 09/09/17 09:19 Dose: 600 mg Etravirine (Intelence -) 200 mg PO BID [facility] Last Admin: 09/09/17 09:18 Dose: 200 mg Gabapentin (Neurontin -) 400 mg PO TID [facility] Last Admin: 09/09/17 06:37 Dose: 400 mg Heparin Sodium (Porcine) (Heparin -) 1,000 unit IVPUSH PRN PRN PRN Reason: Heparin Last Admin: 09/06/17 18:21 Dose: 1,000 unit Heparin Sodium (Porcine) (Heparin -) 5,000 unit IVPUSH PRN PRN PRN Reason: Heparin Last Admin: 09/07/17 01:38 Dose: 5,000 unit HEPARIN SOD,PORK IN 0.45% NACL (Heparin-1/2ns 25,000 Units/500) 25,000 units in 500 mls @ 20 mls/hr IVPB TITR [facility]; 1,000 UNITS/HR PRN Reason: Protocol Last Admin: 09/09/17 09:18 Dose: Not Given Insulin Aspart (Novolog Vial Sliding Scale -) 1 vial SQ [facility] PRN Reason: Protocol Last Admin: 09/09/17 06:37 Dose: 4 units Insulin Detemir (Levemir Vial) 15 units SQ HS [facility] Last Admin: 09/08/17 22:48 Dose: 15 units Insulin Detemir (Levemir Vial) 20 units SQ AM [facility] Last Admin: 09/09/17 06:37 Dose: 20 units Metoprolol Succinate (Toprol Xl -) 100 mg PO DAILY [facility] Last Admin: 09/09/17 09:18 Dose: 100 mg Pantoprazole Sodium (Protonix -) 40 mg PO DAILY [facility] Last Admin: 09/09/17 09:18 Dose: 40 mg Raltegravir (Isentress -) 400 mg PO BID [facility] Last Admin: 09/09/17 09:19 Dose: 400 mg Warfarin Sodium (Coumadin -) 10 mg PO DAILY@1800 [facility] Last Admin: 09/08/17 17:40 Dose: 10 mg A/P Acute on Chronic Diastolic Heart Failure RLE DVT Acute on Chronic Renal Failure CAD Mitral Regurgitation HIV HTN DM Hyperlipidemia h/o CVA - continue anticoagulation with target INR 2-3 - can d/c heparin gtt in AM if INR remains therapeutic - lasix as needed - monitor urine output, creatinine - O2 as needed
[2017-09-09 12:03] LABS: URINE CREATININE 69.9 mg/dL (20-320)
[2017-09-09 12:05] LABS: RATIO URIN PROTEIN/URIN CREAT 6.5 MG/DL
[2017-09-09] MEDS ORDERED: INSULIN DETEMIR 100 UNITS/ML MDV SQ SCH (13:37)
--- NOTE | 2017-09-09 13:38 | PN ---
Teaching Attending Note Name of Resident: Henny Peraza ATTENDING PHYSICIAN STATEMENT I saw and evaluated the patient. I reviewed the resident's note and discussed the case with the resident. I agree with the resident's findings and plan as documented. SUBJECTIVE:states she feels fine. no CP or SOB or bleeding noted OBJECTIVE: Last Vital Signs Temp Pulse Resp BP Pulse Ox 98.0 F 93 H 18 142/41 96 09/09/17 10:00 09/09/17 10:00 09/09/17 10:00 09/09/17 10:09/09/17 09:00 refused physical exam General NAD ASSESSMENT AND PLAN: 66 yo F with acute on chronic diastolic HF exacerbation in the setting of not taking her lasix and right toe pain and swelling 1. acute on chronic diastolic heart failure exacerbation- now euvolemic. lasix being held. RN reports SOB on movement however pt denies. she does not want to go back on her lasix as it "doesnt work anyway". concern was raised for PE due to RLE DVT however VQ scan negative. will cont daily weights. will re-start lasix once kidney function is stable or if develops volume overload 2. RLE near occlusive Popliteal vein DVT- on heparin ggt. INR therapeutic. will cont heparin ggt. if remains therapeutic can d/c hep ggt in AM. will remain on this and asa. plavix was d/c after counselling patient and her wishing to minimize blood thinners as possible. 3. NÉSTOR on CKD stage III- with nephrotic range proteinuria. Cr stabilized. would benefit from renal bx as has multiple of risk factors however pt requires anticoagulation. unable to perform at this time. nephro on board 4. CAD s/p PCI in 03/2016 and RCA x 2 in 12/2016- was recommended to be on asa 5. peripheral neuropathy- cont gabapentin 400mg TID. 6. Hyperlipidemia- increase to high intensity statin 7. Obesity 8. IDDM, poorly controlled-sugars remain elevated in the evening. will increase levemir to 30 units in the AM and cont with 15 units in the evening. dietary eval to adult school counselor pt on appropriate diet as pt seen eating items not diabetic or low in salt. cont to titrate as needed. 9. HTN-improved. cont to adjust medication as needed 10. 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 12. 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 DVT ppx- hep ggt-coumadin bridge 15. d/c planning tomorrow if INR remains therapeutic
--- NOTE | 2017-09-09 14:07 | PN ---
Physical Exam: SUBJECTIVE: Patient seen and examined. No new c/o overnight. Pt says she feels good. OBJECTIVE: Vital Signs Period Temp Pulse Resp BP Sys/Stallings Pulse Ox Last 24 Hr 97.9 F-98.2 F 77-93 18-18 134-150/41-84 96-98 Intake & Output 09/08/17 09/09/17 09/09/17 23:59 11:59 23:59 Intake Total 1350 438 442 Balance 1350 438 442 Weight 103.532 kg Intake: IV 288 242 HEPARIN-1/2NS 25,000 288 242 UNITS/500 25,000 units In 500 ml @ 1,000 UNITS/HR 20 mls/hr IVPB TITR [facility] Rx#:[id number] Oral 1350 150 200 Other: Voiding Method Bedside Commode Bedside Commode Bedside Commode # Unmeasured Voids Void 1 2 Bowel Movement Yes: Large Weight Measurement Method Standing Scale GENERAL: The patient is awake, alert, and fully oriented, in no acute painful or respiratory distress. LUNGS: Breath sounds equal, clear to auscultation bilaterally, no creps HEART: Regular rate and rhythm, S1, S2 without murmur, rub or gallop. ABDOMEN: Soft, nontender, nondistended, normoactive bowel sounds EXTREMITIES: 2+ pulses, warm, well-perfused, resolving RLE edema. NEUROLOGICAL: AAO x3. Normal speech Laboratory Results - last 24 hr 09/08/17 09/09/17 09/09/17 22:46 07:30 07:30 WBC 5.1 RBC 3.21 L Hgb 9.8 L Hct 29.7 L MCV 92.5 MCH 30.5 MCHC 33.0 RDW 14.5 Plt Count 271 MPV 9.8 PT with INR INR PTT (Actin FS) 97.1 H Sodium Potassium Chloride Carbon Dioxide Anion Gap BUN Creatinine POC Glucometer 310 Random Glucose Calcium U Random Total Protein Urine Creatinine Protein/Creatinin Ratio 09/09/17 09/09/17 09/09/17 07:30 07:30 10:00 WBC RBC Hgb Hct MCV MCH MCHC RDW Plt Count MPV PT with INR 25.40 H INR 2.25 H D PTT (Actin FS) Sodium 142 Potassium 4.0 Chloride 109 H Carbon Dioxide 21 Anion Gap 11 BUN 31 H Creatinine 2.2 H POC Glucometer Random Glucose 174 H Calcium 8.1 L U Random Total Protein 455 H Urine Creatinine 69.9 Protein/Creatinin Ratio 6.5 Active Medications Generic Name Dose Route Start Last Admin Trade Name Freq PRN Reason Stop Dose Admin Amlodipine Besylate 5 mg 09/05/17 10:00 09/09/17 09:18 Norvasc - PO 5 mg DAILY [facility] Administration Aspirin 81 mg 09/05/17 10:00 09/09/17 09:18 Asa - PO 81 mg DAILY [facility] Administration Atorvastatin Calcium 80 mg 09/05/17 22:00 09/08/17 22:43 Lipitor - PO 80 mg HS [facility] Administration Darunavir 600 mg 09/05/17 10:00 09/09/17 09:19 Prezista - PO 600 mg BID [facility] Administration Etravirine 200 mg 09/05/17 10:00 09/09/17 09:18 Intelence - PO 200 mg BID [facility] Administration Gabapentin 400 mg 09/07/17 14:00 09/09/17 13:25 Neurontin - PO 400 mg TID [facility] Administration Heparin Sodium (Porcine) 1,000 unit 09/05/17 08:09 09/06/17 18:21 Heparin - IVPUSH 1,000 unit PRN PRN Administration Heparin Heparin Sodium (Porcine) 5,000 unit 09/05/17 08:09 09/07/17 01:38 Heparin - IVPUSH 5,000 unit PRN PRN Administration Heparin HEPARIN SOD,PORK IN 0.45% NACL 25,000 units in 500 mls @ 20 mls/hr 09/05/17 08 :09 09/09/17 09:18 Heparin-1/2ns 25,000 Units/500 IVPB Not Given TITR [facility] Protocol 1,000 UNITS/HR Insulin Aspart 1 vial 09/05/17 11:00 09/09/17 11:11 Novolog Vial Sliding Scale - SQ 4 units ACHS [facility] Administration Protocol Insulin Detemir 15 units 09/07/17 22:00 09/08/17 22:48 Levemir Vial SQ 15 units HS [facility] Administration Insulin Detemir 30 units 09/09/17 13:37 Levemir Vial SQ AM [facility] Metoprolol Succinate 100 mg 09/05/17 10:00 09/09/17 09:18 Toprol Xl - PO 100 mg DAILY [facility] Administration Pantoprazole Sodium 40 mg 09/05/17 10:00 09/09/17 09:18 Protonix - PO 40 mg DAILY [facility] Administration Raltegravir 400 mg 09/05/17 10:00 09/09/17 09:19 Isentress - PO 400 mg BID [facility] Administration Warfarin Sodium 10 mg 09/07/17 19:15 09/08/17 17:40 Coumadin - PO 10 mg DAILY@1800 [facility] Administration Cr- 1.7 on presentation Negative trop x3 EKG- no features of ischemia- old T waves CXR at presentation- diffuse pulmonary vascular congestion with possible L pleural effusion Pt diagnosed with diastolic CHF - ECHO 07/07 Xray R foot-AP/Lateral- no acute pathology R popliteal DVT on duplex V/Q scan done on 09/03/17-no evidence of PE ASSESSMENT/PLAN: Pt is a 66 yo F with PMHx of diastolic CHF(last ECHO-07/07), [place] (s/p stent placement 03/2016, 12/2016), IDDM, HTN, HLD, HIV and small SDH 04/2016, recent admission for PNA (07/09) presenting with a 4 day hx of SOB #Right foot swelling Resolving R leg edema Lasix still held Continue heparin gtt- day 1 INR therapeutic with coumadin bridge aPTT, INR CBC Cont coumadin 10mg Plavix discontinued per patient's preference following D/W Dr May on risks and benefits #Acute on chronic CHF exacerbation: Not volume overload ed at this time-Lasix held Likely due to medication non compliance BNP at presentation-3049.91 Repeat CXR- resolving Hold lasix- with rising Cr- Daily weights Salt restriction- less than 1200mg per daily Strict ins and outs To consider follow up measures addressing compliance on discharge Dr Hsieh on board- Cont toprol 100mg To continue amlodipine for now until renal function improves for replacement with ARBs or ACEI #small SDH 04/2016 No obvious lateralizing signs/ residual deficits Cont ASA Cont metoprolol Pt to continue coumadin and ASA, opted against plavix #NÉSTOR on CKD: Cr- 1.[address] Gomez on board Renal work up on going Marked proteinuria- likely secondary to HIV/DM/HTN Monitor BMP Avoid nephrotoxic drugs Dr Gomez on the case- appreciate recs Pt may benefit from renal biopsy Currently undergoing anticoagulation Immunologic work up by nephro Eduardo still on hold # Hx of [place] (s/p stent placement 03/2016, 12/2016) Cont daily ASA 81mg Stop plavix Toprol XL 50mg daily Will continue coumadin after heparin tomorrow (if therapeutic) #IDDM SQ Insulin levemir 15u HS SQ insulin levemir 30U am Cont ISS #Diabetic neuropathy Gabapentin 400 tid #HTN Amlodipine 5mg daily Toprol XL 100mg daily #HLD Lipitor 80mg PO HS #HIV Raltegravir 400 mg PO BID Darunavir 600mg PO bid Etravirine 200mg bid #Chronic anemia Iron Polysac/Iron Heme/FA/B12 PO ACBK #L Abdominal pain with epigastric tenderness R/O atypical chest pain vs GERD Resolved EKG stat- Likely new T wave inversions Repeat trops- negative x3 Tabs protonix 40mg daily Monitor #Dispo: For likely discharge home tomorrow if therapeutic INR Visit type - Emergency Visit Emergency Visit: Yes ED Registration Date: 08/29/17 Care time: The patient presented to the Emergency Department on the above date and was hospitalized for further evaluation of their emergent condition. - New Patient This patient is new to me today: No - Critical Care Critical Care patient: No - Discharge Referral Referred to [facility] Med P.C.: No
--- NOTE | 2017-09-09 15:06 | PN ---
Progress Note, Physician History of Present Illness: Pt seen and examined at bedside. She is awake and alert. She denies shortness of breath. - Current Medication List Current Medications: Active Medications Amlodipine Besylate (Norvasc -) 5 mg PO DAILY [facility] Last Admin: 09/09/17 09:18 Dose: 5 mg Aspirin (Asa -) 81 mg PO DAILY [facility] Last Admin: 09/09/17 09:18 Dose: 81 mg Atorvastatin Calcium (Lipitor -) 80 mg PO HS [facility] Last Admin: 09/08/17 22:43 Dose: 80 mg Darunavir (Prezista -) 600 mg PO BID [facility] Last Admin: 09/09/17 09:19 Dose: 600 mg Etravirine (Intelence -) 200 mg PO BID [facility] Last Admin: 09/09/17 09:18 Dose: 200 mg Gabapentin (Neurontin -) 400 mg PO TID [facility] Last Admin: 09/09/17 13:25 Dose: 400 mg Heparin Sodium (Porcine) (Heparin -) 1,000 unit IVPUSH PRN PRN PRN Reason: Heparin Last Admin: 09/06/17 18:21 Dose: 1,000 unit Heparin Sodium (Porcine) (Heparin -) 5,000 unit IVPUSH PRN PRN PRN Reason: Heparin Last Admin: 09/07/17 01:38 Dose: 5,000 unit HEPARIN SOD,PORK IN 0.45% NACL (Heparin-1/2ns 25,000 Units/500) 25,000 units in 500 mls @ 20 mls/hr IVPB TITR [facility]; 1,000 UNITS/HR PRN Reason: Protocol Last Admin: 09/09/17 09:18 Dose: Not Given Insulin Aspart (Novolog Vial Sliding Scale -) 1 vial SQ ACHS [facility] PRN Reason: Protocol Last Admin: 09/09/17 11:11 Dose: 4 units Insulin Detemir (Levemir Vial) 15 units SQ HS [facility] Last Admin: 09/08/17 22:48 Dose: 15 units Insulin Detemir (Levemir Vial) 30 units SQ AM [facility] Metoprolol Succinate (Toprol Xl -) 100 mg PO DAILY [facility] Last Admin: 09/09/17 09:18 Dose: 100 mg Pantoprazole Sodium (Protonix -) 40 mg PO DAILY [facility] Last Admin: 09/09/17 09:18 Dose: 40 mg Raltegravir (Isentress -) 400 mg PO BID [facility] Last Admin: 09/09/17 09:19 Dose: 400 mg Warfarin Sodium (Coumadin -) 10 mg PO DAILY@1800 [facility] Last Admin: 09/08/17 17:40 Dose: 10 mg - Objective Vital Signs: Vital Signs Temperature 98.1 F 09/09/17 14:34 Pulse Rate 92 H 09/09/17 14:34 Respiratory Rate 18 09/09/17 14:34 Blood Pressure 152/79 09/09/17 14:34 O2 Sat by Pulse Oximetry (%) 96 09/09/17 09:00 Constitutional: Yes: Calm Eyes: Yes: Conjunctiva Clear HENT: Yes: Atraumatic Neck: Yes: Supple Cardiovascular: Yes: S1, S2 Respiratory: Yes: CTA Bilaterally Gastrointestinal: Yes: Normal Bowel Sounds, Soft Musculoskeletal: Yes: WNL Edema: RLE: Trace Neurological: Yes: Oriented Psychiatric: Yes: Oriented Labs: CBC, BMP 09/09/17 07:30 09/09/17 07:30 INR, PTT INR 2.25 (0.82-1.09) H D 09/09/17 07:30 Problem List - Problems (1) Acute on chronic diastolic CHF (congestive heart failure) Code(s): I50.33 - ACUTE ON CHRONIC DIASTOLIC (CONGESTIVE) HEART FAILURE (2) NÉSTOR (acute kidney injury) Code(s): N17.9 - ACUTE KIDNEY FAILURE, UNSPECIFIED (3) HIV (human immunodeficiency virus infection) Code(s): Z21 - ASYMPTOMATIC HUMAN IMMUNODEFICIENCY VIRUS INFECTION STATUS (4) HTN (hypertension) Code(s): I10 - ESSENTIAL (PRIMARY) HYPERTENSION Qualifiers: Hypertension type: unspecified Qualified Code(s): I10 - Essential (primary ) hypertension Assessment/Plan Current Medications Generic Name Dose Route Start Last Admin Trade Name Freq PRN Reason Stop Dose Admin Amlodipine Besylate 5 mg 09/05/17 10:00 09/09/17 09:18 Norvasc - PO 5 mg DAILY [facility] Administration Aspirin 81 mg 09/05/17 10:00 09/09/17 09:18 Asa - PO 81 mg DAILY [facility] Administration Atorvastatin Calcium 80 mg 09/05/17 22:00 09/08/17 22:43 Lipitor - PO 80 mg HS [facility] Administration Darunavir 600 mg 09/05/17 10:00 09/09/17 09:19 Prezista - PO 600 mg BID [facility] Administration Etravirine 200 mg 09/05/17 10:00 09/09/17 09:18 Intelence - PO 200 mg BID [facility] Administration Gabapentin 400 mg 09/07/17 14:00 09/09/17 13:25 Neurontin - PO 400 mg TID [facility] Administration Heparin Sodium (Porcine) 1,000 unit 09/05/17 08:09 09/06/17 18:21 Heparin - IVPUSH 1,000 unit PRN PRN Administration Heparin Heparin Sodium (Porcine) 5,000 unit 09/05/17 08:09 09/07/17 01:38 Heparin - IVPUSH 5,000 unit PRN PRN Administration Heparin HEPARIN SOD,PORK IN 0.45% NACL 25,000 units in 500 mls @ 20 mls/hr 09/05/17 08 :09 09/09/17 09:18 Heparin-1/2ns 25,000 Units/500 IVPB Not Given TITR [facility] Protocol 1,000 UNITS/HR Insulin Aspart 1 vial 09/05/17 11:00 09/09/17 11:11 Novolog Vial Sliding Scale - SQ 4 units ACHS [facility] Administration Protocol Insulin Detemir 15 units 09/07/17 22:00 09/08/17 22:48 Levemir Vial SQ 15 units HS [facility] Administration Insulin Detemir 30 units 09/09/17 13:37 Levemir Vial SQ AM [facility] Metoprolol Succinate 100 mg 09/05/17 10:00 09/09/17 09:18 Toprol Xl - PO 100 mg DAILY [facility] Administration Pantoprazole Sodium 40 mg 09/05/17 10:00 09/09/17 09:18 Protonix - PO 40 mg DAILY [facility] Administration Raltegravir 400 mg 09/05/17 10:00 09/09/17 09:19 Isentress - PO 400 mg BID [facility] Administration Warfarin Sodium 10 mg 09/07/17 19:15 09/08/17 17:40 Coumadin - PO 10 mg DAILY@1800 [facility] Administration Laboratory Tests 09/03/17 09/09/17 15:00 10:00 Protein/Creatinin Ratio 6.5 MERY Screen Negative c-ANCA <1:20 Proteinase 3 (PR3) <3.5 p-ANCA <1:20 Atypical p-ANCA <1:20 Myeloperoxidase Ab <9.0 Double Strand DNA Ab <1 Impression 1. NÉSTOR 2. nephrotic range proteinuria 3. CHF 4. DVT 5. HIV 6. DM 7. subdural hematoma 8. CAD 9. CKD Plan - renal workup is in progress, serologies negative so far - will need better glucose control as a1c is elevated - will need to clarify how controlled her HIV is - cont to monitor renal function - volume status has been stable off of lasix - unable to do kidney biopsy as she is on coumadin - will need outpt follow up and workup, this was explained with pt and to her daughter
[2017-09-09] MEDS ORDERED: PT OWN MED DRAWER 7, Y5N ONE ×3 (15:36→21:19)
[2017-09-09] MEDS: WARFARIN NA 10 MG TABLET (FP) PO SCH (17:03)
[2017-09-09] MEDS: ATORVASTATIN CA 80 MG TABLET (FP) PO SCH (21:21)
--- NOTE | 2017-09-10 00:42 | EKG ---
Test Reason : Blood Pressure : / mmHG Vent. Rate : 084 BPM Atrial Rate : 084 BPM P-R Int : 200 ms QRS Dur : 086 ms QT Int : 402 ms P-R-T Axes : 052 -06 126 degrees QTc Int : 475 ms NORMAL SINUS RHYTHM POSSIBLE LEFT ATRIAL ENLARGEMENT T WAVE ABNORMALITY, CONSIDER LATERAL ISCHEMIA PROLONGED QT ABNORMAL ECG WHEN COMPARED WITH ECG OF 30-AUG-2017 09:29, NO SIGNIFICANT CHANGE WAS FOUND Confirmed by JOSE MORSE, ARI ([id number]) on 09/10/2017 12:42:27 AM Referred By: TREMAYNE RODRIGUEZ DR Confirmed By:ARI GARCIA MD
[2017-09-10] MEDS: GABAPENTIN 400 MG CAPSULE (FP) PO SCH ×2 (06:33→13:20)
[2017-09-10] MEDS: INSULIN SLIDING SCALE (NOVOLOG) 1 VIAL SQ SCH ×3 (06:34→16:26)
--- NOTE | 2017-09-10 07:07 | PN ---
Physical Exam: SUBJECTIVE: Patient seen and examined. Pt seen.Wants to go home. OBJECTIVE: Vital Signs Period Temp Pulse Resp BP Sys/Stallings Pulse Ox Last 24 Hr 97.9 F-98.2 F 80-93 18-20 142-156/41-79 96-96 Vital Signs Temp 98.2 F 09/10/17 05:38 Pulse 84 09/10/17 05:38 Resp 20 09/10/17 05:38 BP 156/79 09/10/17 05:38 Pulse Ox 96 09/09/17 21:00 Intake & Output 09/09/17 09/09/17 09/10/17 11:59 23:59 11:59 Intake Total 438 442 Balance 438 442 Weight 103.532 kg Intake: IV 288 242 HEPARIN-1/2NS 25,000 288 242 UNITS/500 25,000 units In 500 ml @ 1,000 UNITS/HR 20 mls/hr IVPB TITR [facility] Rx#:[id number] Oral 150 200 Other: Voiding Method Bedside Commode Bedside Commode Bedside Commode # Unmeasured Voids Void 2 Weight Measurement Method Standing Scale GENERAL: The patient is awake, alert, and fully oriented, in no acute distress. LUNGS: Vesicular breath sounds bilaterally, Scant L basilar creps HEART: Regular rate and rhythm, S1, S2 ABDOMEN: Soft, nontender, nondistended, normoactive bowel sounds EXTREMITIES: 2+ pulses, warm, well-perfused, no edema. NEUROLOGICAL: AAOx 3. No lateralizing signs Laboratory Results - last 24 hr 09/09/17 09/09/17 09/09/17 07:30 07:30 07:30 WBC 5.1 RBC 3.21 L Hgb 9.8 L Hct 29.7 L MCV 92.5 MCH 30.5 MCHC 33.0 RDW 14.5 Plt Count 271 MPV 9.8 PT with INR 25.40 H INR 2.25 H D PTT (Actin FS) 97.1 H Sodium Potassium Chloride Carbon Dioxide Anion Gap BUN Creatinine Random Glucose Calcium U Random Total Protein Urine Creatinine Protein/Creatinin Ratio 09/09/17 09/09/17 07:30 10:00 WBC RBC Hgb Hct MCV MCH MCHC RDW Plt Count MPV PT with INR INR PTT (Actin FS) Sodium 142 Potassium 4.0 Chloride 109 H Carbon Dioxide 21 Anion Gap 11 BUN 31 H Creatinine 2.2 H Random Glucose 174 H Calcium 8.1 L U Random Total Protein 455 H Urine Creatinine 69.9 Protein/Creatinin Ratio 6.5 Active Medications Generic Name Dose Route Start Last Admin Trade Name Sanjayq PRN Reason Stop Dose Admin Amlodipine Besylate 5 mg 09/05/17 10:00 09/09/17 09:18 Norvasc - PO 5 mg DAILY [facility] Administration Aspirin 81 mg 09/05/17 10:00 09/09/17 09:18 Asa - PO 81 mg DAILY [facility] Administration Atorvastatin Calcium 80 mg 09/05/17 22:00 09/09/17 21:21 Lipitor - PO 80 mg HS [facility] Administration Darunavir 600 mg 09/05/17 10:00 09/09/17 21:20 Prezista - PO 600 mg BID [facility] Administration Etravirine 200 mg 09/05/17 10:00 09/09/17 21:20 Intelence - PO 200 mg BID [facility] Administration Gabapentin 400 mg 09/07/17 14:00 09/10/17 06:33 Neurontin - PO 400 mg TID [facility] Administration Heparin Sodium (Porcine) 1,000 unit 09/05/17 08:09 09/06/17 18:21 Heparin - IVPUSH 1,000 unit PRN PRN Administration Heparin Heparin Sodium (Porcine) 5,000 unit 09/05/17 08:09 09/07/17 01:38 Heparin - IVPUSH 5,000 unit PRN PRN Administration Heparin HEPARIN SOD,PORK IN 0.45% NACL 25,000 units in 500 mls @ 20 mls/hr 09/05/17 08 :09 09/09/17 15:39 Heparin-1/2ns 25,000 Units/500 IVPB 1,100 units/hr TITR [facility] 22 mls/hr Protocol Administration 1,000 UNITS/HR Insulin Aspart 1 vial 09/05/17 11:00 09/10/17 06:34 Novolog Vial Sliding Scale - SQ 2 units ACHS [facility] Administration Protocol Insulin Detemir 15 units 09/07/17 22:00 09/09/17 21:33 Levemir Vial SQ 15 units HS [facility] Administration Insulin Detemir 30 units 09/09/17 13:37 09/10/17 06:33 Levemir Vial SQ 30 units AM [facility] Administration Metoprolol Succinate 100 mg 09/05/17 10:00 09/09/17 09:18 Toprol Xl - PO 100 mg DAILY [facility] Administration Pantoprazole Sodium 40 mg 09/05/17 10:00 09/09/17 09:18 Protonix - PO 40 mg DAILY [facility] Administration Raltegravir 400 mg 09/05/17 10:00 09/09/17 21:20 Isentress - PO 400 mg BID [facility] Administration Warfarin Sodium 10 mg 09/07/17 19:15 09/09/17 17:03 Coumadin - PO 10 mg DAILY@1800 [facility] Administration ASSESSMENT/PLAN:
[2017-09-10 07:52] LABS: HEMATOCRIT 29.8 % (32.4-45.2); HEMOGLOBIN 9.6 GM/dL (10.7-15.3); MCH 30.2 pg (25.7-33.7); MCHC 32.3 g/dl (32.0-36.0); MEAN CELL VOLUME 93.4 fl (80-96); MEAN PLT VOLUME 9.6 fl (7.5-11.1); PLATELET COUNT 247 K/MM3 (134-434); RBC 3.19 M/mm3 (3.60-5.2); RDW 14.4 % (11.6-15.6); WHITE BLOOD COUNT 5.2 K/mm3 (4.0-10.0)
[2017-09-10 08:00] LABS: INR 2.84 (0.82-1.09); PROTHROMBIN TIME (PATIENT) 32.1 SEC (9.7-13.0)
[2017-09-10 08:02] LABS: ACTIVATED PTT 83.3 SECONDS (26.9-34.4)
[2017-09-10] MEDS: HEPARIN SOD,PORK IN 0.45% NACL 25,000 UNITS/500 ML INFUS.BAG IVPB SCH (08:25)
--- NOTE | 2017-09-10 09:10 | PN ---
Progress Note (short form) - Note Progress Note: Neurology HISTORY OF PRESENT ILLNESS: 66 yo F with PMHx of diastolic CHF(last ECHO-07/07), [place] (s/p stent placement 2015, 12/2016), IDDM, HTN, HLD, HIV and small SDH 04/2016, recent admission for PNA (07/09) presenting with a 4 day hx of SOB, worse on exertion, worsening orthopnea and PND,( has been unable to sleep for days), weight gain (30lbs in one month) and bilateral pedal edema. Per notes, she said she has been gaining weight despite regular exercise in the gym. 4 days prior to admission she reported running out of her lasix (40mg daily) and was unable to reach her primary care physician to refill her medications and thus develop respiratory difficulty and presented to the hospital. CXR noted to have diffuse pulmonary vascular congestion with possible L pleural effusion. I was consulted regarding prior subdural hematoma as patient with reported DVT and for AC. CT head completed and reviewed and no acute changes noted. Evidence of prior craniotomy in R frontal region. No new neurologic deficits. Patient started on AC, denies any issues. No bleeding since AC started. No change in mental status, appears at baseline neurologic status. Per notes, patient wanted to remain on dual antiplatelet and AC with awareness of increased risk of bleed. No complications. Active Medications Amlodipine Besylate (Norvasc -) 5 mg PO DAILY [facility] Last Admin: 09/09/17 09:18 Dose: 5 mg Aspirin (Asa -) 81 mg PO DAILY [facility] Last Admin: 09/09/17 09:18 Dose: 81 mg Atorvastatin Calcium (Lipitor -) 80 mg PO HS [facility] Last Admin: 09/09/17 21:21 Dose: 80 mg Darunavir (Prezista -) 600 mg PO BID [facility] Last Admin: 09/09/17 21:20 Dose: 600 mg Etravirine (Intelence -) 200 mg PO BID [facility] Last Admin: 09/09/17 21:20 Dose: 200 mg Gabapentin (Neurontin -) 400 mg PO TID [facility] Last Admin: 09/10/17 06:33 Dose: 400 mg Insulin Aspart (Novolog Vial Sliding Scale -) 1 vial SQ ACHS [facility] PRN Reason: Protocol Last Admin: 09/10/17 06:34 Dose: 2 units Insulin Detemir (Levemir Vial) 10 units SQ ONCE ONE Stop: 09/10/17 10:01 Insulin Detemir (Levemir Vial) 34 units SQ [facility] Metoprolol Succinate (Toprol Xl -) 100 mg PO DAILY [facility] Last Admin: 09/09/17 09:18 Dose: 100 mg Pantoprazole Sodium (Protonix -) 40 mg PO DAILY [facility] Last Admin: 09/09/17 09:18 Dose: 40 mg Raltegravir (Isentress -) 400 mg PO BID [facility] Last Admin: 09/09/17 21:20 Dose: 400 mg Warfarin Sodium (Coumadin -) 10 mg PO DAILY@1800 [facility] Last Admin: 09/09/17 17:03 Dose: 10 mg PHYSICAL EXAMINATION Vital Signs Temperature 98.2 F 09/10/17 05:38 Pulse Rate 84 09/10/17 05:38 Respiratory Rate 20 09/10/17 05:38 Blood Pressure 156/79 09/10/17 05:38 O2 Sat by Pulse Oximetry (%) 96 09/09/17 21:00 GENERAL: Awake, alert, and fully oriented, in no acute respiratory distress, eating a sandwich. HEAD: Normal with no signs of trauma. 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 Moist mucous membranes. NECK: Normal range of motion, supple, no JVD. LUNGS: Dull lung bases, Breath sounds equal, basal creps bilaterally, no wheeze or rhonchi. No accessory muscle use. HEART: Tachycardic, S1 and S2 without murmur, rub or gallop. ABDOMEN: Soft, nontender, distended/obese, normoactive bowel sounds, no guarding MUSCULOSKELETAL: Normal range of motion at all joints. R big toe mild subungual swelling and hematoma. No CVA tenderness. UPPER EXTREMITIES: 2+ pulses, warm, well-perfused. LOWER EXTREMITIES: 2+ pulses, warm, well-perfused. No calf tenderness. Bilateral pitting peripheral edema, up to knee. NEUROLOGICAL: Normal speech. No facial droop, normal tone, limited participation, strength grossly intact, sensory intact, gait deferred CBCD WBC 5.2 K/mm3 (4.0-10.0) 09/10/17 06:00 RBC 3.19 M/mm3 (3.60-5.2) L 09/10/17 06:00 Hgb 9.6 GM/dL (10.7-15.3) L 09/10/17 06:00 Hct 29.8 % (32.4-45.2) L 09/10/17 06:00 MCV 93.4 fl (80-96) 09/10/17 06:00 MCHC 32.3 g/dl (32.0-36.0) 09/10/17 06:00 RDW 14.4 % (11.6-15.6) 09/10/17 06:00 Plt Count 247 K/MM3 (134-434) 09/10/17 06:00 MPV 9.6 fl (7.5-11.1) 09/10/17 06:00 CMP Sodium 142 mmol/L (136-145) 09/09/17 07:30 Potassium 4.0 mmol/L (3.5-5.1) 09/09/17 07:30 Chloride 109 mmol/L (98-107) H 09/09/17 07:30 Carbon Dioxide 21 mmol/L (21-32) 09/09/17 07:30 Anion Gap 11 (8-16) 09/09/17 07:30 BUN 31 mg/dL (7-18) H 09/09/17 07:30 Creatinine 2.2 mg/dL (0.55-1.02) H 09/09/17 07:30 Creat Clearance w eGFR 22.20 (>60) 09/05/17 07:35 Calcium 8.1 mg/dL (8.5-10.1) L 09/09/17 07:30 Total Bilirubin 1.2 mg/dL (0.2-1.0) H D 09/05/17 07:35 AST 11 U/L (15-37) L 09/05/17 07:35 ALT 12 U/L (12-78) 09/05/17 07:35 Alkaline Phosphatase 69 U/L (45-117) 09/05/17 07:35 Total Protein 6.2 g/dl (6.4-8.2) L 09/05/17 07:35 Albumin 2.3 g/dl (3.4-5.0) L 09/05/17 07:35 CT head reviewed ASSESSMENT/PLAN: 66 yo F with PMHx of diastolic CHF(last ECHO-07/07), [place] (s/p stent placement 2015, 12/2016), IDDM, HTN, HLD, HIV and small SDH 04/2016, recent admission for PNA (07/09) presenting with a 4 day hx of SOB, worse on exertion, worsening orthopnea and PND,( has been unable to sleep for days), weight gain (30lbs in one month) and bilateral pedal edema. Per notes, she said she has been gaining weight despite regular exercise in the gym. 4 days prior to admission she reported running out of her lasix (40mg daily) and was unable to reach her primary care physician to refill her medications and thus develop respiratory difficulty and presented to the hospital. CXR noted to have diffuse pulmonary vascular congestion with possible L pleural effusion. I was consulted regarding prior subdural hematoma as patient with reported DVT and for AC. CT head compelted and reviewed and no acute changes noted. Evidence of prior craniotomy in R frontal region. No new neurologic deficits. Based on this, she does has baseline risk of bleed as any patient with prior hemorrhage. Patient started on AC, denies any issues. No bleeding. No change in mental status, appears at baseline neurologic status. Ct head if any acute changes in mental status deterioration. Monitor mental status, neuro exam, currently stable. She is on dual antiplatelet as well and spoke with Dr. Montoya. Preference would be to have her on single antiplatelet while on AC. However,from cardiac perspetive would be preferred for dual antiplatelet for 3 more mons with AC. Per notes, she would like to remain on both plavix and ASA with AC. If able to remove on antiplatelet in several months, would encourage doing so. Thus far stable on AC and antiplatelet, no singificant neurologic changes or bleeding complications.
[2017-09-10] MEDS ORDERED: PT OWN MED DRAWER 7, Y5N ONE (09:38)
[2017-09-10] MEDS: ASPIRIN 81 MG CHEWABLE TABLETS PO SCH (09:41)
[2017-09-10] MEDS: amLODIPine BESYLATE 5 MG TABLET (FP) PO SCH (09:41)
[2017-09-10] MEDS: PANTOPRAZOLE 40 MG TABLET (FP) PO SCH (09:41)
[2017-09-10] MEDS: RALTEGRAVIR POTASSIUM 400 MG TAB PO SCH (09:42)
[2017-09-10] MEDS: ETRAVIRINE 100 MG TABLET PO SCH (09:42)
[2017-09-10] MEDS: DARUNAVIR ETHANOLATE 600 MG TAB PO SCH (09:42)
[2017-09-10] MEDS ORDERED: INSULIN DETEMIR 100 UNITS/ML MDV SQ ONE (10:00)
--- NOTE | 2017-09-10 10:21 | PN ---
Progress Note (short form) - Note Progress Note: PULMONARY Denies shortness of breath or chest pain. No leg pain. INR remains therapeutic. Wants to go home. Last Vital Signs Temp Pulse Resp BP Pulse Ox 97.6 F 83 20 123/84 99 09/10/17 09:00 09/10/17 09:00 09/10/17 09:00 09/10/17 09:00 09/10/17 09:00 Gen: NAD at rest Heart: RRR Lung: decreased breath sounds at the bases Abd: soft, nontender Ext: no edema CBC, BMP 09/10/17 06:00 Active Medications Amlodipine Besylate (Norvasc -) 5 mg PO DAILY [facility] Last Admin: 09/10/17 09:41 Dose: 5 mg Aspirin (Asa -) 81 mg PO DAILY [facility] Last Admin: 09/10/17 09:41 Dose: 81 mg Atorvastatin Calcium (Lipitor -) 80 mg PO HS [facility] Last Admin: 09/09/17 21:21 Dose: 80 mg Darunavir (Prezista -) 600 mg PO BID [facility] Last Admin: 09/10/17 09:42 Dose: 600 mg Etravirine (Intelence -) 200 mg PO BID [facility] Last Admin: 09/10/17 09:42 Dose: 200 mg Gabapentin (Neurontin -) 400 mg PO TID [facility] Last Admin: 09/10/17 06:33 Dose: 400 mg Insulin Aspart (Novolog Vial Sliding Scale -) 1 vial SQ [facility] PRN Reason: Protocol Last Admin: 09/10/17 06:34 Dose: 2 units Insulin Detemir (Levemir Vial) 34 units SQ [facility] Metoprolol Succinate (Toprol Xl -) 100 mg PO DAILY [facility] Last Admin: 09/10/17 09:41 Dose: 100 mg Pantoprazole Sodium (Protonix -) 40 mg PO DAILY [facility] Last Admin: 09/10/17 09:41 Dose: 40 mg Raltegravir (Isentress -) 400 mg PO BID [facility] Last Admin: 09/10/17 09:42 Dose: 400 mg Warfarin Sodium (Coumadin -) 10 mg PO DAILY@1800 [facility] Last Admin: 09/09/17 17:03 Dose: 10 mg A/P Acute on Chronic Diastolic Heart Failure RLE DVT Acute on Chronic Renal Failure CAD Mitral Regurgitation HIV HTN DM Hyperlipidemia h/o CVA - continue anticoagulation with target INR 2-3 - heparin gtt d/c'd - lasix as needed - monitor urine output, creatinine - O2 as needed - can d/c from pulmonary standpoint
[2017-09-10 11:01] LABS: ANION GAP 9 (8-16); BLOOD UREA NITROGEN 28 mg/dL (7-18); CALCIUM 8.3 mg/dL (8.5-10.1); CHLORIDE 107 mmol/L (98-107); CO2 27 mmol/L (21-32); GLUCOSE,RANDOM 193 mg/dL (74-106); MAGNESIUM 2.1 mg/dL (1.8-2.4); PHOSPHOROUS 3.9 mg/dL (2.5-4.9); POTASSIUM 4.2 mmol/L (3.5-5.1); SODIUM 143 mmol/L (136-145)
--- NOTE | 2017-09-10 11:30 | PN ---
Progress Note, Physician Chief Complaint: Ptr A&Ox3; no chest pain or dyspnea; no LE pain. History of Present Illness: Patient is a 66 year old black female with a significant past medical history of diastolic CHF, [place] (s/p stent placement 03/2016; additional stent about 3 months ago at [place], [place]), IDDM, HTN, HLD, obesity, HIV and small SDH 2016, who presents to the ED with complaints of difficulty breathing that began 5 days ago. Patient reports visiting her friend in [place] when she ran out of her medication 5 days go. She reports experiencing gradual shortness of breath over the 5 days until she could no longer bear it. Patient reports experiencing chronic cough as well as increased bilateral leg edema since taking her medication. Denies chest pain, Nausea, vomiting. Denies contact with sick individual, out of state travelling. Denies any other symptoms. Sedentary lifestyle. Allergies: None Social history: No smoking. No alcohol. No illicit drugs. Surgical history: coronary stents 2015 and 2017 - Current Medication List Current Medications: Active Medications Amlodipine Besylate (Norvasc -) 5 mg PO DAILY [facility] Last Admin: 09/10/17 09:41 Dose: 5 mg Aspirin (Asa -) 81 mg PO DAILY [facility] Last Admin: 09/10/17 09:41 Dose: 81 mg Atorvastatin Calcium (Lipitor -) 80 mg PO HS [facility] Last Admin: 09/09/17 21:21 Dose: 80 mg Darunavir (Prezista -) 600 mg PO BID [facility] Last Admin: 09/10/17 09:42 Dose: 600 mg Etravirine (Intelence -) 200 mg PO BID [facility] Last Admin: 09/10/17 09:42 Dose: 200 mg Gabapentin (Neurontin -) 400 mg PO TID [facility] Last Admin: 09/10/17 06:33 Dose: 400 mg Insulin Aspart (Novolog Vial Sliding Scale -) 1 vial SQ [facility] PRN Reason: Protocol Last Admin: 09/10/17 11:23 Dose: 8 units Insulin Detemir (Levemir Vial) 34 units SQ [facility] Metoprolol Succinate (Toprol Xl -) 100 mg PO DAILY [facility] Last Admin: 09/10/17 09:41 Dose: 100 mg Pantoprazole Sodium (Protonix -) 40 mg PO DAILY [facility] Last Admin: 09/10/17 09:41 Dose: 40 mg Raltegravir (Isentress -) 400 mg PO BID [facility] Last Admin: 09/10/17 09:42 Dose: 400 mg - Objective Vital Signs: Vital Signs Temperature 97.6 F 09/10/17 09:00 Pulse Rate 83 09/10/17 09:00 Respiratory Rate 20 09/10/17 09:00 Blood Pressure 123/84 09/10/17 09:00 O2 Sat by Pulse Oximetry (%) 99 09/10/17 09:00 Constitutional: Yes: Calm Eyes: Yes: WNL HENT: Yes: WNL Neck: Yes: WNL Cardiovascular: Yes: WNL Respiratory: Yes: WNL Gastrointestinal: Yes: Soft ...Rectal Exam: Yes: Deferred Genitourinary: No: Anuria Breast(s): Yes: WNL Musculoskeletal: Yes: Muscle Weakness Extremities: Yes: WNL Edema: No Peripheral Pulses WNL: Yes Integumentary: Yes: WNL Neurological: Yes: WNL Psychiatric: Yes: WNL Labs: CBC, BMP 09/10/17 06:00 09/10/17 06:00 INR, PTT INR 2.84 (0.82-1.09) H 09/10/17 06:00 Problem List - Problems (1) HTN (hypertension) Assessment/Plan: On metorpolol succinate ( 100 mg daily); on amlodipine 5 mg daily.. If renal function improves, add ACEI or ARB for HTN and renal protection with DM (and may stop amlodipine then if BP falls too precipitously). Otherwise, consider starting hydralazine + isordil. (ECHO mildly reduced LVEF, with ?noncompaction of LV. Code(s): I10 - ESSENTIAL (PRIMARY) HYPERTENSION Qualifiers: Hypertension type: unspecified Qualified Code(s): I10 - Essential (primary ) hypertension (2) Acute on chronic systolic and diastolic heart failure, NYHA class 2 Assessment/Plan: Increased metoprolol. ?Noncompaction syndrome (LV); f/u cardiac records, Consider cardiac MRI as oupatient, if not recently done. Renal dysfunction precludes use of ACEI or ARB presently. Code(s): I50.43 - ACUTE ON CHRONIC COMBINED SYSTOLIC AND DIASTOLIC HRT FAIL (3) DVT (deep venous thrombosis) Assessment/Plan: DVT of lower extremity. Unable to do CTA to r/o PE due to renal dysfunction. Started anticoagulation (warfarin). Unless evidnence of bleed or other hematologic abnormalities,recommend continuing with ASA and clopidogrel (CAD-->DEStents in 2015 and 12/2016).Pt says she prefers the triple therapy. Code(s): I82.409 - ACUTE EMBOLISM AND THOMBOS UNSP DEEP VN UNSP LOWER EXTREMITY Qualifiers: DVT location: upper extremity (4) Gout Code(s): M10.9 - GOUT, UNSPECIFIED (5) Obesity Code(s): E66.9 - OBESITY, UNSPECIFIED (6) Sleep apnea Code(s): G47.30 - SLEEP APNEA, UNSPECIFIED (7) CAD (coronary artery disease) Assessment/Plan: s/p [place]-->stents (the latest was 11/2016 at [facility]) F/u records. 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 Code(s): N18.9 - CHRONIC KIDNEY DISEASE, UNSPECIFIED Qualifiers: Chronic kidney disease stage: unspecified stage Qualified Code(s): N18.9 - Chronic kidney disease, unspecified (9) Diabetes Code(s): E11.9 - TYPE 2 DIABETES MELLITUS WITHOUT COMPLICATIONS (10) HIV (human immunodeficiency virus infection) Assessment/Plan: on multiple antiviral. 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 Pt is presently already on anticoagulant for DVT. She is also being treated for systollic/diastolic CHF. 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 As the latest was late 2016, she should ideally continue both ASA and clopidogrel for at least a year after the procedure; this was discussed with Dr. Almazan, pt's neurologist. Addition of warfarin significantly increases risk of bleed, but is required because of DVT. If pt and family agree to continuing all three agents, INR level should be monitored frequently to keep as uniformly close to 2.0 as possible (weekly checks would be best). If an antiplatelet is to be discontinued, agree with stopping clopidogrel. I discussed the above with the patient today. She says she wants to continue the two antiplatelets and warfarin. She says she makes her own health decisions , not her daughter.This should be ascertained. Code(s): Z87.828 - PERSONAL HISTORY OF OTH (HEALED) PHYSICAL INJURY AND TRAUMA (13) Pulmonary hypertension Code(s): I27.20 - PULMONARY HYPERTENSION, UNSPECIFIED
--- NOTE | 2017-09-10 11:45 | PN ---
Progress Note, Physician - Current Medication List Current Medications: Active Medications Amlodipine Besylate (Norvasc -) 5 mg PO DAILY [facility] Last Admin: 09/10/17 09:41 Dose: 5 mg Aspirin (Asa -) 81 mg PO DAILY [facility] Last Admin: 09/10/17 09:41 Dose: 81 mg Atorvastatin Calcium (Lipitor -) 80 mg PO HS [facility] Last Admin: 09/09/17 21:21 Dose: 80 mg Darunavir (Prezista -) 600 mg PO BID [facility] Last Admin: 09/10/17 09:42 Dose: 600 mg Etravirine (Intelence -) 200 mg PO BID [facility] Last Admin: 09/10/17 09:42 Dose: 200 mg Gabapentin (Neurontin -) 400 mg PO TID [facility] Last Admin: 09/10/17 06:33 Dose: 400 mg Insulin Aspart (Novolog Vial Sliding Scale -) 1 vial SQ [facility] PRN Reason: Protocol Last Admin: 09/10/17 11:23 Dose: 8 units Insulin Detemir (Levemir Vial) 34 units SQ [facility] Metoprolol Succinate (Toprol Xl -) 100 mg PO DAILY [facility] Last Admin: 09/10/17 09:41 Dose: 100 mg Pantoprazole Sodium (Protonix -) 40 mg PO DAILY [facility] Last Admin: 09/10/17 09:41 Dose: 40 mg Raltegravir (Isentress -) 400 mg PO BID [facility] Last Admin: 09/10/17 09:42 Dose: 400 mg - Objective Vital Signs: Vital Signs Temperature 97.6 F 09/10/17 09:00 Pulse Rate 83 09/10/17 09:00 Respiratory Rate 20 09/10/17 09:00 Blood Pressure 123/84 09/10/17 09:00 O2 Sat by Pulse Oximetry (%) 99 09/10/17 09:00 Labs: CBC, BMP 09/10/17 06:00 09/10/17 06:00 INR, PTT INR 2.84 (0.82-1.09) H 09/10/17 06:00 Problem List - Problems (1) HTN (hypertension) Assessment/Plan: On metorpolol succinate ( 100 mg daily); on amlodipine 5 mg daily.. If renal function improves, add ACEI or ARB for HTN and renal protection with DM (and may stop amlodipine then if BP falls too precipitously). Otherwise, consider starting hydralazine + isordil. (ECHO mildly reduced LVEF, with ?noncompaction of LV. Code(s): I10 - ESSENTIAL (PRIMARY) HYPERTENSION Qualifiers: Hypertension type: unspecified Qualified Code(s): I10 - Essential (primary ) hypertension (2) Acute on chronic systolic and diastolic heart failure, NYHA class 2 Assessment/Plan: Increased metoprolol. ?Noncompaction syndrome (LV); f/u cardiac records, Consider cardiac MRI as oupatient, if not recently done. Renal dysfunction precludes use of ACEI or ARB presently. Code(s): I50.43 - ACUTE ON CHRONIC COMBINED SYSTOLIC AND DIASTOLIC HRT FAIL (3) DVT (deep venous thrombosis) Assessment/Plan: DVT of lower extremity. Unable to do CTA to r/o PE due to renal dysfunction. Started anticoagulation (warfarin) INR 2.8 today; heparin discontinued. Unless evidnence of bleed or other hematologic abnormalities,recommend continuing with ASA and clopidogrel (CAD-->DEStents in 2015 and 12/2016).Pt says she prefers the triple therapy. Code(s): I82.409 - ACUTE EMBOLISM AND THOMBOS UNSP DEEP VN UNSP LOWER EXTREMITY Qualifiers: DVT location: upper extremity (4) Gout Code(s): M10.9 - GOUT, UNSPECIFIED (5) Obesity Assessment/Plan: Pt discussed in detail her desire to work closely with a student affairs dean as an outpatient to learn to eat healthily and loss weight. Code(s): E66.9 - OBESITY, UNSPECIFIED (6) Sleep apnea Code(s): G47.30 - SLEEP APNEA, UNSPECIFIED (7) CAD (coronary artery disease) Assessment/Plan: s/p [place]-->stents (the latest was 11/2016 at [facility]) F/u records. Pt plans to see her private wrinkle chaser as outpatient. 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
[2017-09-10 12:14] VITALS: BMI 31.4
[2017-09-10 13:35] VITALS: TEMP 98.1
--- NOTE | 2017-09-10 13:57 | PN ---
Progress Note, Physician History of Present Illness: Pt seen and examined at bedside. She is awake and alert. She denies shortness of breath. - Current Medication List Current Medications: Active Medications Amlodipine Besylate (Norvasc -) 5 mg PO DAILY [facility]END[facility] TO [facility] Last Admin: 09/10/17 09:41 Dose: 5 mg Aspirin (Asa -) 81 mg PO DAILY [facility] Last Admin: 09/10/17 09:41 Dose: 81 mg Atorvastatin Calcium (Lipitor -) 80 mg PO HS [facility] Last Admin: 09/09/17 21:21 Dose: 80 mg Darunavir (Prezista -) 600 mg PO BID [facility] TO [facility] Last Admin: 09/10/17 09:42 Dose: 600 mg Etravirine (Intelence -) 200 mg PO BID [facility] Last Admin: 09/10/17 09:42 Dose: 200 mg Gabapentin (Neurontin -) 400 mg PO TID [facility] Last Admin: 09/10/17 13:20 Dose: 400 mg Insulin Aspart (Novolog Vial Sliding Scale -) 1 vial SQ [facility] PRN Reason: Protocol Last Admin: 09/10/17 11:23 Dose: 8 units Insulin Detemir (Levemir Vial) 34 units SQ [facility] Metoprolol Succinate (Toprol Xl -) 100 mg PO DAILY [facility] TO [facility] Last Admin: 09/10/17 09:41 Dose: 100 mg Pantoprazole Sodium (Protonix -) 40 mg PO DAILY [facility] Last Admin: 09/10/17 09:41 Dose: 40 mg Raltegravir (Isentress -) 400 mg PO BID [facility] TO [facility] Last Admin: 09/10/17 09:42 Dose: 400 mg - Objective Vital Signs: Vital Signs Temperature 98.1 F 09/10/17 13:33 Pulse Rate 97 H 09/10/17 13:33 Respiratory Rate 20 09/10/17 13:33 Blood Pressure 140/76 09/10/17 13:33 O2 Sat by Pulse Oximetry (%) 99 09/10/17 09:00 Constitutional: Yes: Calm Eyes: Yes: Conjunctiva Clear HENT: Yes: Atraumatic Neck: Yes: Supple Cardiovascular: Yes: S1, S2 Respiratory: Yes: CTA Bilaterally Genitourinary: Yes: WNL Musculoskeletal: Yes: WNL Edema: No Neurological: Yes: Oriented Psychiatric: Yes: Oriented Labs: CBC, BMP 09/10/17 06:00 09/10/17 06:00 INR, PTT INR 2.84 (0.82-1.09) H 09/10/17 06:00 Problem List - Problems (1) Acute on chronic diastolic CHF (congestive heart failure) Code(s): I50.33 - ACUTE ON CHRONIC DIASTOLIC (CONGESTIVE) HEART FAILURE (2) NÉSTOR (acute kidney injury) Code(s): N17.9 - ACUTE KIDNEY FAILURE, UNSPECIFIED (3) HIV (human immunodeficiency virus infection) Code(s): Z21 - ASYMPTOMATIC HUMAN IMMUNODEFICIENCY VIRUS INFECTION STATUS (4) HTN (hypertension) Code(s): I10 - ESSENTIAL (PRIMARY) HYPERTENSION Qualifiers: Hypertension type: unspecified Qualified Code(s): I10 - Essential (primary ) hypertension Assessment/Plan Current Medications Generic Name Dose Route Start Last Admin Trade Name Freq PRN Reason Stop Dose Admin Amlodipine Besylate 5 mg 09/05/17 10:00 09/10/17 09:41 Norvasc - PO 5 mg DAILY [facility] Administration Aspirin 81 mg 09/05/17 10:00 09/10/17 09:41 Asa - PO 81 mg DAILY [facility] Administration Atorvastatin Calcium 80 mg 09/05/17 22:00 09/09/17 21:21 Lipitor - PO 80 mg HS [facility] Administration Darunavir 600 mg 09/05/17 10:00 09/10/17 09:42 Prezista - PO 600 mg BID [facility] Administration Etravirine 200 mg 09/05/17 10:00 09/10/17 09:42 Intelence - PO 200 mg BID [facility] Administration Gabapentin 400 mg 09/07/17 14:00 09/10/17 13:20 Neurontin - PO 400 mg TID [facility] Administration Insulin Aspart 1 vial 09/05/17 11:00 09/10/17 11:23 Novolog Vial Sliding Scale - SQ 8 units ACHS [facility] Administration Protocol Insulin Detemir 34 units 09/10/17 22:00 Levemir Vial SQ HS [facility] Metoprolol Succinate 100 mg 09/05/17 10:00 09/10/17 09:41 Toprol Xl - PO 100 mg DAILY [facility] Administration Pantoprazole Sodium 40 mg 09/05/17 10:00 09/10/17 09:41 Protonix - PO 40 mg DAILY [facility] Administration Raltegravir 400 mg 09/05/17 10:00 09/10/17 09:42 Isentress - PO 400 mg BID [facility] Administration Impression 1. NÉSTOR 2. nephrotic range proteinuria 3. CHF 4. DVT 5. HIV 6. DM 7. subdural hematoma 8. CAD 9. CKD Plan - renal function is starting to improve - pt has a baseline fluxer of about 1.6 - restart ryder or arb once fluxer improves as it will help with proteinuria - serologies negative so far - will need follow up with renal after discharge, she will see her physicians in [place]. I explained to her that she has a large amount of protein in her urine and that this need to be followed up on and monitored. - unable to do kidney biopsy as she is on coumadin
--- NOTE | 2017-09-10 15:38 | PN ---
Teaching Attending Note Name of Resident: Henny Peraza ATTENDING PHYSICIAN STATEMENT I saw and evaluated the patient. I reviewed the resident's note and discussed the case with the resident. I agree with the resident's findings and plan as documented with exceptions below. SUBJECTIVE: Patient seen and examined. No complaints. Leg swelling improved, no chest pain or dyspnea. OBJECTIVE: Vital Signs Period Temp Pulse Resp BP Sys/Stallings Pulse Ox Last 24 Hr 97.6 F-98.2 F 80-97 18-20 123-156/76-84 96-99 Intake & Output 09/07/17 09/08/17 09/09/17 09/10/17 23:59 23:59 23:59 23:59 Intake Total 1506 1650 880 544 Balance 1506 1650 880 544 Weight 228 lb 8 oz 228 lb 6 oz 228 lb 4 oz 227 lb 8 oz General: sitting in bed in no acute distress Chest: CTAB, no rales or wheezing Abdomen: soft, Obese, NT Extremities: improved right foot edema from prior exam, no tenderness noted Home Medication List Medication Instructions Recorded Confirmed Type Aspirin 81 mg PO DAILY 07/07/17 09/02/17 History Cholecalciferol (Vitamin D3) 2,000 unit PO DAILY 07/07/17 09/02/17 History [D3-2000] Darunavir Ethanolate [Prezista -] 600 mg PO BID 07/07/17 08/30/17 History Etravirine [Intelence -] 200 mg PO BID 07/07/17 08/30/17 History Insulin Aspart (Niacinamide) 16 unit SQ TID 07/07/17 09/02/17 History [Fiasp 100 Unit/ml Vial] Insulin Detemir [Levemir Flextouch] 34 unit SQ HS 07/07/17 09/02/17 History Iron Polysac/Iron Heme/FA/B12 1 each PO ACBK 07/07/17 09/02/17 History [Bifera Rx Tablet] Lactic Acid [Lactinol Hx] 0 gm TP BID 07/07/17 09/02/17 History Raltegravir [Isentress] 400 mg PO BID 07/07/17 08/30/17 History Amlodipine Besylate [Norvasc -] 2.5 mg PO DAILY 07/08/17 09/02/17 History Gabapentin 400 mg PO TID 07/08/17 09/03/17 History Ritonavir [Norvir] 100 mg PO BID 08/30/17 08/30/17 History Ammonium Lactate Cream [Lac-Hydrin 1 applic TP BID 09/02/17 09/02/17 History 12% Cream -] Ciclopirox/Skin Cleanser No.40 1 applic BID 09/02/17 09/02/17 History [Loprox 0.77% Suspension Kit] Sofosbuvir [Sovaldi] 400 mg PO DAILY 09/02/17 09/02/17 History Active Medications Generic Name Dose Route Start Last Admin Trade Name Freq PRN Reason Stop Dose Admin Amlodipine Besylate 5 mg 09/05/17 10:00 09/10/17 09:41 Norvasc - PO 5 mg DAILY [facility] Administration Aspirin 81 mg 09/05/17 10:00 09/10/17 09:41 Asa - PO 81 mg DAILY [facility] Administration Atorvastatin Calcium 80 mg 09/05/17 22:00 09/09/17 21:21 Lipitor - PO 80 mg HS [facility] Administration Darunavir 600 mg 09/05/17 10:00 09/10/17 09:42 Prezista - PO 600 mg BID [facility] Administration Etravirine 200 mg 09/05/17 10:00 09/10/17 09:42 Intelence - PO 200 mg BID [facility] Administration Gabapentin 400 mg 09/07/17 14:00 09/10/17 13:20 Neurontin - PO 400 mg TID [facility] Administration Insulin Aspart 1 vial 09/05/17 11:00 09/10/17 11:23 Novolog Vial Sliding Scale - SQ 8 units ACHS [facility] Administration Protocol Insulin Detemir 34 units 09/10/17 22:00 Levemir Vial SQ HS [facility] Metoprolol Succinate 100 mg 09/05/17 10:00 09/10/17 09:41 Toprol Xl - PO 100 mg DAILY [facility] Administration Pantoprazole Sodium 40 mg 09/05/17 10:00 09/10/17 09:41 Protonix - PO 40 mg DAILY [facility] Administration Raltegravir 400 mg 09/05/17 10:00 09/10/17 09:42 Isentress - PO 400 mg BID [facility] Administration Warfarin Sodium 7.5 mg 09/10/17 18:00 Coumadin - PO DAILY@1800 [facility] Laboratory Results - last 24 hr 09/08/17 09/08/17 09/09/17 17:43 17:49 06:36 WBC RBC Hgb Hct MCV MCH MCHC RDW Plt Count MPV PT with INR INR PTT (Actin FS) Sodium Potassium Chloride Carbon Dioxide Anion Gap BUN Creatinine POC Glucometer 170 153 219 Random Glucose Calcium Phosphorus Magnesium 09/09/17 09/09/17 09/09/17 11:10 16:19 21:27 WBC RBC Hgb Hct MCV MCH MCHC RDW Plt Count MPV PT with INR INR PTT (Actin FS) Sodium Potassium Chloride Carbon Dioxide Anion Gap BUN Creatinine POC Glucometer 261 230 298 Random Glucose Calcium Phosphorus Magnesium 09/10/17 09/10/17 09/10/17 05:17 06:00 06:00 WBC 5.2 RBC 3.19 L Hgb 9.6 L Hct 29.8 L MCV 93.4 MCH 30.2 MCHC 32.3 RDW 14.4 Plt Count 247 MPV 9.6 PT with INR 32.10 H INR 2.84 H PTT (Actin FS) 83.3 H Sodium Potassium Chloride Carbon Dioxide Anion Gap BUN Creatinine POC Glucometer 194 Random Glucose Calcium Phosphorus Magnesium 09/10/17 09/10/17 06:00 11:22 WBC RBC Hgb Hct MCV MCH MCHC RDW Plt Count MPV PT with INR INR PTT (Actin FS) Sodium 143 Potassium 4.2 Chloride 107 Carbon Dioxide 27 Anion Gap 9 BUN 28 H Creatinine 2.0 H POC Glucometer 302 Random Glucose 193 H Calcium 8.3 L Phosphorus 3.9 Magnesium 2.1 Microbiology 09/01/17 09:35 Urine - Urine Clean Catch Urine Culture - Final ASSESSMENT AND PLAN: 66 yof with acute on chronic diastolic HF exacerbation in the setting of not taking her lasix and right toe pain and swelling -Dyspnea, acute on chronic diastolic heart failure exacerbation, PE ruled out. -RLE near occlusive Popliteal vein DVT -NÉSTOR on CKD stage III -CAD s/p PCI in 03/2016 and RCA x 2 in 12/2016 -Hyperlipidemia -Obesity -IDDM, poorly controlled -HTN -Mitral regurgitation -?Ventricular Noncompaction syndrome -HIV on HAART -h/o Fronto-parietal CVA Plan: INR 2.8, d/c heparin drip. Continue coumadin at 7.5 mg daily. Discuss with outpatient PCP for INR follow up. COumadin education and compliance education with patient. Discussed with hematology, not a candidate for NOACs given NÉSTOR. Cr continues to improve. Renal input appreciated. Off lasix x 1 week with no concerns, recommend holding off for now. Significant proteinuria. ACEi or ARB when renal function improves. Resume home DM regimen on d.c Patient takes 34 units levemir hs and novolog 6-16 units premeal based on blood sugar readings. Non compliance seems to be a major concerns. PCP concerned about compliance and INR checks, recommends [facility] for follow up. Family meeting with patient and daughter, to discuss current findings, need for follow up and compliance in detail. Dispo planning accordingly in 24 hours to ensure safe discharge. Plan discussed with patient in detail, all questions answered.
--- NOTE | 2017-09-10 17:10 | DS ---
Physical Exam: SUBJECTIVE: Patient seen and examined. Wants to go home. OBJECTIVE: Vital Signs Period Temp Pulse Resp BP Sys/Stallings Pulse Ox Last 24 Hr 97.6 F-98.2 F 80-97 18-20 123-156/76-84 96-99 PHYSICAL EXAM GENERAL: The patient is awake, alert, and fully oriented, in no acute distress. LUNGS: Vesicular breath sounds bilaterally, Scant L basilar creps HEART: Regular rate and rhythm, S1, S2 ABDOMEN: Soft, nontender, nondistended, normoactive bowel sounds EXTREMITIES: 2+ pulses, warm, well-perfused, no edema. NEUROLOGICAL: AAOx 3. No lateralizing signs CBC, BMP 09/10/17 06:00 09/10/17 06:00 Laboratory Results - last 24 hr 09/08/17 09/08/17 09/09/17 17:43 17:49 06:36 WBC RBC Hgb Hct MCV MCH MCHC RDW Plt Count MPV PT with INR INR PTT (Actin FS) Sodium Potassium Chloride Carbon Dioxide Anion Gap BUN Creatinine POC Glucometer 170 153 219 Random Glucose Calcium Phosphorus Magnesium 09/09/17 09/09/17 09/09/17 11:10 16:19 21:27 WBC RBC Hgb Hct MCV MCH MCHC RDW Plt Count MPV PT with INR INR PTT (Actin FS) Sodium Potassium Chloride Carbon Dioxide Anion Gap BUN Creatinine POC Glucometer 261 230 298 Random Glucose Calcium Phosphorus Magnesium 09/10/17 09/10/17 09/10/17 05:17 06:00 06:00 WBC 5.2 RBC 3.19 L Hgb 9.6 L Hct 29.8 L MCV 93.4 MCH 30.2 MCHC 32.3 RDW 14.4 Plt Count 247 MPV 9.6 PT with INR 32.10 H INR 2.84 H PTT (Actin FS) 83.3 H Sodium Potassium Chloride Carbon Dioxide Anion Gap BUN Creatinine POC Glucometer 194 Random Glucose Calcium Phosphorus Magnesium 09/10/17 09/10/17 09/10/17 06:00 11:22 16:24 WBC RBC Hgb Hct MCV MCH MCHC RDW Plt Count MPV PT with INR INR PTT (Actin FS) Sodium 143 Potassium 4.2 Chloride 107 Carbon Dioxide 27 Anion Gap 9 BUN 28 H Creatinine 2.0 H POC Glucometer 302 207 Random Glucose 193 H Calcium 8.3 L Phosphorus 3.[address] head w/o contrast- shows chronic infarcts V/Q scan done on 09/03/17-no evidence of PE Xray R foot-AP/Lateral 08/29/17- no acute pathology Duplex US- 08/29/17- R LE shows DVT CXR-08/29/17- diffuse pulmonary vascular congestion with possible L pleural effusion - CHF, BNP-3049.91, negative trops x1, Initial 08/29/17- Glu-324, h&h- 9.9/29.4, WBC-4.9, Cr-1.7 BNP at presentation-3049.91 Pt diagnosed with diastolic CHF - ECHO 07/07 EKG- no features of ischemia- old T waves HOSPITAL COURSE: Date of Admission:08/29/17 Date of Discharge: 09/10/17 Prehospital course: Pt is a 66 yo F with PMHx of diastolic CHF (last ECHO-07/07), PA (s/p stent placement 03/2016, 12/2016), IDDM, HTN, HLD, HIV and small SDH 04/2016, recent admission for PNA (07/09) presenting with a 4 day hx of SOB, weight gain, and bilateral pedal edema. About 4 days prior to presentation, she reported running out of her lasix (40mg daily) and was unable to reach her primary care physician to refill her medications. Hospital Course: CHF/DVT/Previous PA with stents Patient was admitted for CHF exacerbation with BNP of 3049.91 and found to have pedal edema R>L and RLE DVT. She was diuresed initially with iv lasix and then stopped. She was started on heparin drip and bridged to coumadin initially from 5mg , escalated to 10mg, then discharged on 7.5mg to follow up with her primary care doctor-Dr Julio for INR checks and dose adjustments. V/Q scan was done after her CXR cleared and did not show evidence of PE. Pt was initially on triple anticoagulation with ASA, plavix and heparin transitioning to coumadin because of her recent 2nd cardiac stent placement 12/2016. However, because of her hx of traumatic small ICH after a fall, the risks and benefits were explained to the patient and she opted to discontinue plavix. Cable Respooler, neurology and environmental communications specialist consults were sort and followed. Anticoagulation was recommended for at least a year Hx of Intracranial bleed: While on triple anticoagulation with heparin, ASA and plavix, concern for bleed was entertained and CT head without contrast was negative. NÉSTOR: Pt was noted to have elevated Cr- 1.7 on presentation. Nephrology was consulted and pt was worked up and found to have massive proteinuria. Should would benefit from biopsy when she is off anticoagulation. Her multiple chronic illnesses -HIV/DM/HTN could also contribute to the renal injury. When lasix was stopped, the kidney function improved initially, but she was discharged with a Cr-2. IDDM: Her insulin was adjusted several times while in hospital but she was finally discharged on her home dose of SQ Insulin Detemir 34U HS and 16U TIDAC- regular insulin Diabetic neuropathy: She continued Gabapentin 400 tid HTN: She was on Amlodipine 5mg daily (until renal function improves for replacement with ARBs or ACEI) and increased dose of Toprol XL 100mg daily HLD: She continued Lipitor 80mg PO HS HIV: She continued: Raltegravir 400 mg PO BID Darunavir 600mg PO bid Etravirine 200mg bid Chronic anemia: She continued: Iron Polysac/Iron Heme/FA/B12 PO ACBK Patient was discharged home. She declined VNS or home health aide despite the daughter's request to help with compliance issues. Discussions were held with Pt, daughter and her PCP multiple times updating them about the patient's condition. The Pt's daughter made appointments for INR checks and follow up with the PCP before the Pt was discharged. 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 (Acute) CAD (coronary artery disease) (Chronic) Diabetes (Chronic) HIV (human immunodeficiency virus infection) (Chronic) HTN (hypertension) (Chronic) Hyperlipidemia (Chronic) Obesity (Chronic) Subdural hematoma (Chronic) Condition: Stable - Instructions Diet, Activity, Other Instructions: You have been started on a new medication (Coumadin 7.5mg) to help thin your blood because of the clot in your right leg We are giving you 2.5mg to take 3 tablets daily (6pm) today and tomorrow until you see your primary care doctor- Dr Julio for INR check and dose adjustment You need to have repeated checks of your blood to adjust the dose of your coumadin You have to follow up tomorrow for your INR level. After which you will be told when next to do the next INR. You have to make sure to keep all your appointments to avoid the number being greater than 3, which could increase risk of bleeding Monitor for signs of bleeding, in your gums, urine or stool, watch out for falls especially so you do not hit your head as you could bleed Take the medication at the sametime everyday to ensure it works to its fullest The medication could be affected by foods you eat such as green vegetables Keep the amount of green vegetables constant to prevent changes in the effect of the drug Follow up regularly to have blood tests done for effectiveness of the medication - You should visit your primary care doctor up to 3 times a week to see if the dose needs to be adjusted Let your primary care doctor know if you are starting a new medication in case the dose of the coumadin needs to be adjusted The initial blood thinner (plavix) has been stopped, since you did not want the increased risk of up to 3 different blood thinners You will continue on Aspirin and coumadin for at least 3-6 months for the clot you had in your leg and then as instructed by your doctor. Medication for your blood pressure/heart -metoprolol was increased from 50mg daily to 100mg daily The ECHO of the heart done showed increased thickening of your heart for which you may benefit from more tests such as an MRI of your heart Please follow up with your heart doctors as an outpatient Your kidneys were found not to be working very well At some point in the future, when you no longer need blood thinners, you may benefit from a biopsy of your kidneys to identify what is actually the cause of the kidneys not working well and letting out high amounts of protein You may follow with the equipment services associate as an outpatient Formal sleep work up as outpatient Please follow up with a behavioral health assistant/sleep specialist on tests to help you sleep better Follow up with haematologist Dr Kapoor You have to follow up with your PCP tomorrow who will check your INR. INR needs to be between 2-3 Please continue to take all your other medications as prescribed If you think your symptoms are getting worse, or you have worsening shortness of breath or chest pain, please return to the emergency room Patient's hospital course and INR monitoring and follow up was discussed with the patient's PCP- Dr Julio with Maryam and the patient's daughter Bradly. Pt's daughter has made appointments for INR follow up on alternate days, starting tomorrow 09/10/17 for dose adjustment BMP (blood test for kidneys) in 3-5 days with your doctor. Your lasix is currently on hold per the equipment services associate. Daily weights and notify doctor if weight gain > 3lbs in 2 days. Follow up with your doctor to discuss when lasix can be resumed. Continue home insulin regimen. Check blood sugars before meals and at bedtime and notify doctor if < 75 or persistently > 200 or any reading > 400 noted. Referrals: Lavelle Godinez MD [Staff Physician] - 2 Weeks Hola Hsieh MD [Staff Physician] - 1 Week Jam Kapoor MD [Staff Physician] - 1 Week Shilpi Gomez MD [Staff Physician] - 1 Week Disposition: VNS/HOME HEALTH CARE - Home Medications Comprehensive Discharge Medication List: Ambulatory Orders Aspirin 81 mg PO DAILY 07/07/17 Cholecalciferol (Vitamin D3) [D3-2000] 2,000 unit PO DAILY 07/07/17 Darunavir Ethanolate [Prezista -] 600 mg PO BID 07/07/17 Etravirine [Intelence -] 200 mg PO BID 07/07/17 Insulin Aspart (Niacinamide) [Fiasp 100 Unit/ml Vial] 16 unit SQ TID 07/07/17 Insulin Detemir [Levemir Flextouch] 34 unit SQ HS 07/07/17 Iron Polysac/Iron Heme/FA/B12 [Bifera Rx Tablet] 1 each PO ACBK 07/07/17 Lactic Acid [Lactinol Hx] 0 gm TP BID 07/07/17 Raltegravir [Isentress] 400 mg PO BID 07/07/17 Amlodipine Besylate [Norvasc -] 2.5 mg PO DAILY 07/08/17 Gabapentin 400 mg PO TID 07/08/17 Atorvastatin Ca [Lipitor] 80 mg PO HS #30 tablet 07/09/17 Ritonavir [Norvir] 100 mg PO BID 08/30/17 Ammonium Lactate Cream [Lac-Hydrin 12% Cream -] 1 applic TP BID 09/02/17 Ciclopirox/Skin Cleanser No.40 [Loprox 0.77% Suspension Kit] 1 applic BID Sofosbuvir [Sovaldi] 400 mg PO DAILY 09/02/17 Metoprolol Succinate [Toprol XL -] 100 mg PO DAILY 30 Days tab.sr.24h 09/10/17 Warfarin Sodium [Coumadin] 2.5 mg PO ASDIR #15 tablet 09/10/17 This patient is new to me today: No Emergency Visit: Yes ED Registration Date: 08/29/17 Care time: The patient presented to the Emergency Department on the above date and was hospitalized for further evaluation of their emergent condition. Critical Care patient: No - Discharge Referral Referred to [facility] Med P.C.: No
[2017-09-10] MEDS ORDERED: WARFARIN NA 7.5 MG TABLET (FP) PO SCH (18:00)
[2017-09-10 18:45] VITALS: BP 144/88; PULSE 87
[2017-09-10] MEDS ORDERED: INSULIN DETEMIR 100 UNITS/ML MDV SQ SCH (22:00)
== END 2017-09-10 18:50 | disposition home health service (06) | DRG 291 ==
LOC: JER 13:27 → JERBED 16:50 → J4W 22:23 → J5S 09-04 19:03 → J7W 09-07 06:20
PROVIDERS: ADMIT Hospitalist; ATTEND Hospitalist
DX: I13.0 Hypertensive heart and chronic kidney disease with heart failure and stage 1 through stage 4 chronic kidney disease, or unspecified chronic kidney disease (principal); I50.33 Acute on chronic diastolic (congestive) heart failure; I69.351 Hemiplegia and hemiparesis following cerebral infarction affecting right dominant side; N17.9 Acute kidney failure, unspecified; I82.431 Acute embolism and thrombosis of right popliteal vein; N18.3 Chronic kidney disease, stage 3 (moderate); E11.22 Type 2 diabetes mellitus with diabetic chronic kidney disease; E78.5 Hyperlipidemia, unspecified; E78.00 Pure hypercholesterolemia, unspecified; I27.20 Pulmonary hypertension, unspecified; I25.2 Old myocardial infarction; F41.9 Anxiety disorder, unspecified; E11.65 Type 2 diabetes mellitus with hyperglycemia; G47.33 Obstructive sleep apnea (adult) (pediatric); E11.21 Type 2 diabetes mellitus with diabetic nephropathy; I42.9 Cardiomyopathy, unspecified; M10.9 Gout, unspecified; N32.89 Other specified disorders of bladder; D63.8 Anemia in other chronic diseases classified elsewhere; I25.10 Atherosclerotic heart disease of native coronary artery without angina pectoris; E66.9 Obesity, unspecified; Z68.30 Body mass index [BMI] 30.0-30.9, adult; I34.0 Nonrheumatic mitral (valve) insufficiency; E11.40 Type 2 diabetes mellitus with diabetic neuropathy, unspecified; Z78.0 Asymptomatic menopausal state; Z91.19 Patient's noncompliance with other medical treatment and regimen; Z95.5 Presence of coronary angioplasty implant and graft; Z87.828 Personal history of other (healed) physical injury and trauma; Z21 Asymptomatic human immunodeficiency virus [HIV] infection status
CPT/HCPCS: 36415; 70450-TC; 71045-TC-FY; 73630-TC-RT-FY; 76775-TC; 76856-TC; 78582-TC; 80048; 80053; 80061; 81003; 81015; 82272; 82436; 82550; 82553; 82570; 82607; 82728; 82962; 83036; 83520; 83540; 83550; 83721; 83735; 83880; 84100; 84133; 84155; 84156; 84165; 84300; 84439; 84443; 84484; 85025; 85027; 85610; 85730; 86038; 86225; 86256; 87086; 93005; 93010; 93306-TC; 93970-TC; 97116-GP; 97161-GP; 99285-25; A9539; A9540; J1644

== ENCOUNTER 2017-11-03 07:49 | Emergency (ER) | payer OTHER ==
[2017-11-03 08:11] VITALS: BP 176/76; PULSE 74; BMI 31.1
--- NOTE | 2017-11-03 08:16 | PDOC ---
History of Present Illness - General Chief Complaint: Injury Stated Complaint: FALL Time Seen by Provider: 11/03/17 08:12 - History of Present Illness Initial Comments: 11/03/17 08:13 67 yo F with h/o HTN, DM, DVT (on Coumadin) HIV, CVA ( residual RUE weakness), CKD, CAD, CHF, and subdural hematoma who p/w left sided lateral chest wall pain s/p mechanical fall. Patient reports fall yesterday morning on attempt to sit down on toilet. Patient states that she slid between toilet and bathtub. On ground for 15 minutes. Was assisted to standing position by daughter. Now with left sided "rib" pain, worse with rotational movement, and deep inhalation. Denies head/neck/back trauma,Laceration, or LOC. Normally ambulates with walker. Ambulating without difficulty. Tylenol for pain control with minimal relief of pain. Denies multiple falls. Patient denies CURRY, N/V, F,C, CP, SOB, urinary complaints, abdominal pain, diarrhea, constipation, lightheadedness, weakness, vertigo, sensory changes. PMHx: as noted above ROS: as noted SHx: Denies Etoh, IVDA. Distant tobbaco use. Allergies: NKDA Past History - Past Medical History Allergies/Adverse Reactions: Allergies Allergy/AdvReac Type Severity Reaction Status Date / Time No Known Allergies Allergy Verified 11/03/17 08:01 Home Medications: Ambulatory Orders Insulin Aspart (Niacinamide) [Fiasp 100 Unit/ml Vial] 16 unit SQ TID 07/07/17 Insulin Detemir [Levemir Flextouch] 34 unit SQ HS 07/07/17 Amlodipine Besylate [Norvasc -] 2.5 mg PO DAILY 07/08/17 Gabapentin 600 mg PO TID 07/08/17 Warfarin Sodium [Coumadin] 2.5 mg PO ASDIR #15 tablet 09/10/17 Clopidogrel Bisulfate [Clopidogrel] 75 mg PO DAILY 11/03/17 Darunavir Ethanolate [Prezista -] 600 mg PO BID 11/03/17 Duloxetine HCl [Cymbalta -] 30 mg PO BID 11/03/17 Etravirine [Intelence -] 200 mg PO BID 11/03/17 Lisinopril [Prinivil] 20 mg PO DAILY 11/03/17 Metoprolol Succinate [Toprol XL -] 100 mg PO BID 11/03/17 Raltegravir [Isentress -] 400 mg PO BID 11/03/17 Ritonavir 100 mg PO BID 11/03/17 Anemia: No Asthma: No Cancer: No Cardiac Disorders: Yes (2 stent) CVA: Yes (R facial droop and RUE weakness) COPD: No CHF: Yes Dementia: No Diabetes: Yes GI Disorders: No Disorders: No HTN: Yes Hypercholesterolemia: Yes Liver Disease: No Seizures: No Thyroid Disease: No - Surgical History Abdominal Surgery: No Appendectomy: No Cardiac Surgery: Yes (2 Stents) Cholecystectomy: No Lung Surgery: No Neurologic Surgery: Yes (BRAIN SX S/P FALL) Orthopedic Surgery: No - Immunization History Immunization Up to Date: Yes - Suicide/Smoking/Psychosocial Hx Smoking Status: No Smoking History: Never smoked Have you smoked in the past 12 months: No Number of Cigarettes Smoked Daily: 0 If you are a former smoker, when did you quit?: 20 yrs ago Information on smoking cessation initiated: No Hx Alcohol Use: No Drug/Substance Use Hx: No Substance Use Type: None Hx Substance Use Treatment: No Review of Systems - Review of Systems Comments:: 11/03/17 08:13 GENERAL/CONSTITUTIONAL: No fever or chills. No weakness. HEAD, EYES, EARS, NOSE AND THROAT: No change in vision. No ear pain or discharge. No sore throat. CARDIOVASCULAR: No chest pain or shortness of breath RESPIRATORY: No cough, wheezing, or hemoptysis. GASTROINTESTINAL: No nausea, vomiting, diarrhea or constipation. GENITOURINARY: No dysuria, frequency, or change in urination. MUSCULOSKELETAL: + Left sided lateral chest wall pain. No neck or back pain. SKIN: No rash NEUROLOGIC: No headache, vertigo, loss of consciousness, or change in strength/ sensation. ENDOCRINE: No increased thirst. No abnormal weight change HEMATOLOGIC/LYMPHATIC: No anemia, easy bleeding, or history of blood clots. ALLERGIC/IMMUNOLOGIC: No hives or skin allergy. *Physical Exam - Vital Signs Last Vital Signs Temp Pulse Resp BP Pulse Ox 98.4 F 74 18 176/76 100 11/03/17 07:56 11/03/17 07:56 11/03/17 07:56 11/03/17 07:56 11/03/17 07:56 - Physical Exam Comments: 11/03/17 08:14 GENERAL: Awake, alert, and fully oriented, in no acute distress HEAD: No signs of trauma, normocephalic, atraumatic EYES: PERRLA, EOMI, sclera anicteric, conjunctiva clear ENT: Auricles normal inspection, hearing grossly normal, nares patent, oropharynx clear without exudates. Moist mucosa NECK: Normal ROM, supple, no lymphadenopathy, JVD, or masses LUNGS: No distress, speaks full sentences, clear to auscultation bilaterally HEART: Regular rate and rhythm, normal S1 and S2, no murmurs, rubs or gallops, peripheral pulses normal and equal bilaterally. Chest: + ttp at 7th-8th rib and intercostal space. No obvious bony deformity, or paradoxical lung movement. ABDOMEN: + Left sided lateral chest wall/ abdominal ecchymosis, ttp. Soft, normoactive bowel sounds. No guarding, no rebound. No masses EXTREMITIES : Normal inspection, Normal range of motion, no edema. No clubbing or cyanosis. NEUROLOGICAL: Cranial nerves II through XII grossly intact. Normal speech, normal gait. SKIN: Warm, Dry, normal turgor, no rashes or lesions noted ED Treatment Course - LABORATORY CBC & Chemistry Diagram: 11/03/17 11:15 11/03/17 11:15 Medical Decision Making - Medical Decision Making 11/03/17 08:33 67 yo F with h/o HTN, DM, DVT (on Coumadin), HIV, CVA ( residual RUE weakness), CKD, CAD, CHF, and subdural hematoma who p/w left sided lateral chest wall pain s/p mechanical fall. BP 176/76, vitals otherwise wnl, AF, A&Ox3. + TTP at 7th- 8th intercostal/rib space. MSK related injury/sprain/costochondritis vs. acute rib fracture. Absent paradoxical lung motion. Low suspicion flail chest, pneumothorax, or pulmonary contusion. [place] CTH rule neg, and Nexus criteria C-spine neg. ED Course: RIBS LEFT SIDE 11/03/17 09:19 LEFT RIBS: No acute rib pathology 11/03/17 11:21 CT CHEST: No acute pathology CT AP: No acute pathology 11/03/17 12:16 INR: 2.69 11/03/17 12:17 CMP: Unremarkable Patient stable for d/c with return precautions. Advised to f/u with PMD. *DC/Admit/Observation/Transfer Diagnosis at time of Disposition: Left-sided chest wall pain - Discharge Dispostion Disposition: HOME Condition at time of disposition: Stable Decision to Admit order: No - Referrals Referrals: Lior Godfrey MD [Primary Care Provider] - - Patient Instructions Printed Discharge Instructions: DI for Atypical Chest Pain Additional Instructions: Please return to the emergency department with any new or worsening symptoms or concerns. Please follow up with your primary care physician within 72 hours. - Post Discharge Activity - Attestations Physician Attestion: 11/03/17 08:15 I attest to the information provided in this note.
--- NOTE | 2017-11-03 08:19 | PDOC ---
History of Present Illness - General Chief Complaint: Injury Stated Complaint: FALL Time Seen by Provider: 11/03/17 08:12 - History of Present Illness Initial Comments: 11/03/17 08:18 67 yo F with h/o HTN, DM, HIV, CKD, CAD, CHF, and subdural hematoma who p/w Past History - Past Medical History Allergies/Adverse Reactions: Allergies Allergy/AdvReac Type Severity Reaction Status Date / Time No Known Allergies Allergy Verified 11/03/17 08:01 Home Medications: Ambulatory Orders Insulin Aspart (Niacinamide) [Fiasp 100 Unit/ml Vial] 16 unit SQ TID 07/07/17 Insulin Detemir [Levemir Flextouch] 34 unit SQ HS 07/07/17 Amlodipine Besylate [Norvasc -] 2.5 mg PO DAILY 07/08/17 Gabapentin 600 mg PO TID 07/08/17 Warfarin Sodium [Coumadin] 2.5 mg PO ASDIR #15 tablet 09/10/17 Clopidogrel Bisulfate [Clopidogrel] 75 mg PO DAILY 11/03/17 Darunavir Ethanolate [Prezista -] 600 mg PO BID 11/03/17 Duloxetine HCl [Cymbalta -] 30 mg PO BID 11/03/17 Etravirine [Intelence -] 200 mg PO BID 11/03/17 Lisinopril [Prinivil] 20 mg PO DAILY 11/03/17 Metoprolol Succinate [Toprol XL -] 100 mg PO BID 11/03/17 Raltegravir [Isentress -] 400 mg PO BID 11/03/17 Ritonavir 100 mg PO BID 11/03/17 Anemia: No Asthma: No Cancer: No Cardiac Disorders: Yes (2 stent) CVA: Yes (R facial droop and RUE weakness) COPD: No CHF: Yes Dementia: No Diabetes: Yes GI Disorders: No Disorders: No HTN: Yes Hypercholesterolemia: Yes Liver Disease: No Seizures: No Thyroid Disease: No - Surgical History Abdominal Surgery: No Appendectomy: No Cardiac Surgery: Yes (2 Stents) Cholecystectomy: No Lung Surgery: No Neurologic Surgery: Yes (BRAIN SX S/P FALL) Orthopedic Surgery: No - Immunization History Immunization Up to Date: Yes - Suicide/Smoking/Psychosocial Hx Smoking Status: No Smoking History: Never smoked Have you smoked in the past 12 months: No Number of Cigarettes Smoked Daily: 0 If you are a former smoker, when did you quit?: 20 yrs ago Information on smoking cessation initiated: No Hx Alcohol Use: No Drug/Substance Use Hx: No Substance Use Type: None Hx Substance Use Treatment: No *Physical Exam - Vital Signs Last Vital Signs Temp Pulse Resp BP Pulse Ox 98.4 F 74 18 176/76 100 11/03/17 07:56 11/03/17 07:56 11/03/17 07:56 11/03/17 07:56 11/03/17 07:56 *DC/Admit/Observation/Transfer - Referrals Referrals: Lior Godfrey MD [Primary Care Provider] - - Patient Instructions Additional Instructions: Please return to the emergency department with any new or worsening symptoms or concerns. Please follow up with your primary care physician within 72 hours. - Post Discharge Activity
--- NOTE | 2017-11-03 09:35 | PDOC ---
Attending Attestation - Resident Resident Name: Josiah Daly - ED Attending Attestation I have performed the following: I have examined & evaluated the patient, The case was reviewed & discussed with the resident, I agree w/resident's findings & plan, Exceptions are as noted - HPI HPI: 11/03/17 09:32 The patient is a 67 year old female, with a significant PMH of CKD, CAD, CVA, HIV, HTN, diabetes, DVT on coumadin, CHF, and subdural hematoma who presents to the emergency department with chest pain s/p fall occurred yesterday morning. Patient states she was trying to sit onto the toilet when she fell in between the bathtub and toilet striking the left side of her chest. Pt states she normally uses her walker to ambulate but could not squeeze it into the bathroom. Patient reports non radiating left lateral chest wall pain aggravated by deep inhalation and movement. She has had minimal relief with Tylenol. Denies head strike or LOC. Pt states her INR was elevated to 4 two days ago and she was advised to skip a dose two days ago, but forgot and skipped her lose last night instead. The patient denies chest pain, shortness of breath, headache and dizziness. Denies fever, chills, nausea, vomit, diarrhea and constipation. Denies dysuria, frequency, urgency and hematuria. Allergies: NKDA Past surgical history: None reported Social history: None reported PCP: Lior Godfrey - Physicial Exam PE: 11/03/17 09:48 GENERAL: Awake, alert, and fully oriented, in no acute distress HEAD: No signs of trauma EYES: PERRLA, EOMI, sclera anicteric, conjunctiva clear ENT: Auricles normal inspection, hearing grossly normal, nares patent, oropharynx clear without exudates. Moist mucosa NECK: Normal ROM, supple, no lymphadenopathy, JVD, or masses LUNGS: Breath sounds equal, clear to auscultation bilaterally. No wheezes, and no crackles HEART: Regular rate and rhythm, normal S1 and S2, no murmurs, rubs or gallops. + ttp over L 7-9th ribs, no deformities or crepitus. ABDOMEN: hematoma to the L flank, no other ttp, rebound, guarding, or distention. EXTREMITIES: Normal range of motion, no edema. No clubbing or cyanosis. No cords, erythema, or tenderness NEUROLOGICAL: Normal speech, cranial nerves intact, normal tone SKIN: Warm, Dry, normal turgor, no rashes or lesions noted. - Medical Decision Making 11/03/17 09:50 67yo F with MMP presents with a mechanical fall after trying to sit on the toilet unassisted by her walker. Pt is hypertensive but states she runs in the 160s-170s range. Otherwise vitals unremarkable. Given L flank hematoma and rib ttp, will check CT chest, abd, pelvis to r/o traumatic injury in pt on coumadin. Will also check basic labs and INR. 11/03/17 12:49 CT chest abdomen and pelvis with no acute pathology, likely has rib contusion Pain controlled with percocet FAST neg INR 2.4, CBC hemolyzed and pt does not want to wait for rpt Pt with no clinical evidence of bleeding or anemia, so I think it is reasonable to hold off on checking CBC Pt requests DC home, will prescribe tramodol for pain as she states 1G tylenol has not been helping. I discussed the physical exam findings, ancillary test results and final diagnoses with the patient. I answered all of the patient's questions. The patient was satisfied with the care received and felt comfortable with the discharge plan and treatment plan. The patient will call their primary care physician within 24 hours to arrange follow-up and will return to the Emergency Department with any new, persistent or worsening symptoms.
[2017-11-03] MEDS ORDERED: morphine CARPU-JECT 4 MG/1 ML DISP.SYRIN IVPUSH ONE (09:52)
[2017-11-03] MEDS ORDERED: morphine SULFATE 4 MG/ML VIAL ONE (10:15)
[2017-11-03 11:52] LABS: ALBUMIN 2.6 g/dl (3.4-5.0); ALK PHOS 79 U/L (45-117); ANION GAP 9 (8-16); BILIRUBIN,TOTAL 0.3 mg/dL (0.2-1.0); BLOOD UREA NITROGEN 35 mg/dL (7-18); CALCIUM 7.8 mg/dL (8.5-10.1); CHLORIDE 110 mmol/L (98-107); CO2 21 mmol/L (21-32); CREATININE 1.7 mg/dL (0.55-1.02); GLUCOSE,RANDOM 247 mg/dL (74-106); POTASSIUM 4.2 mmol/L (3.5-5.1); SGOT/AST 17 U/L (15-37); SGPT/ALT 17 U/L (12-78); SODIUM 140 mmol/L (136-145); TOT PROT 6.6 g/dl (6.4-8.2)
[2017-11-03 12:05] LABS: INR 2.69 (0.82-1.09); PROTHROMBIN TIME (PATIENT) 30.4 SEC (9.7-13.0)
[2017-11-03 13:09] VITALS: TEMP 98
== END 2017-11-03 13:09 | disposition home or self-care (01) ==
LOC: JER 07:49
DX: S29.8XXA Other specified injuries of thorax, initial encounter (principal); W18.11XA Fall from or off toilet without subsequent striking against object, initial encounter; Y93.89 Activity, other specified; Y92.031 Bathroom in apartment as the place of occurrence of the external cause; Y99.8 Other external cause status; I25.10 Atherosclerotic heart disease of native coronary artery without angina pectoris; I13.0 Hypertensive heart and chronic kidney disease with heart failure and stage 1 through stage 4 chronic kidney disease, or unspecified chronic kidney disease; N18.9 Chronic kidney disease, unspecified; I50.9 Heart failure, unspecified; E11.9 Type 2 diabetes mellitus without complications; Z79.4 Long term (current) use of insulin; E78.00 Pure hypercholesterolemia, unspecified; Z21 Asymptomatic human immunodeficiency virus [HIV] infection status; I69.892 Facial weakness following other cerebrovascular disease; I69.851 Hemiplegia and hemiparesis following other cerebrovascular disease affecting right dominant side; Z86.718 Personal history of other venous thrombosis and embolism; Z79.01 Long term (current) use of anticoagulants
CPT/HCPCS: 36415; 71101-TC-FY; 71250-TC; 74176-TC; 80053; 85610; 99281-25

== ENCOUNTER 2017-12-28 01:08 | Emergency (ER) | payer OTHER ==
[2017-12-28 01:19] VITALS: BMI 32.5
--- NOTE | 2017-12-28 01:41 | PDOC ---
History of Present Illness - General History Source: Family Exam Limitations: No Limitations - History of Present Illness Initial Comments: 12/28/17 01:52 The patient is a 67 year old female with past medical history of diastolic CHF( last ECHO-07/07), NV (s/p stent placement 03/2016, 12/2016), IDDM, HTN, HLD, HIV, prior admission for PNA (07/09), DVT (on Coumadin), CVA ( residual RUE weakness) , CKD, CAD, and subdural hematoma presents to the emergency department for AMS. As per niece, the patient was last seen normal around 8:00 pm while they were having dinner together. The niece reports, around 12:30 the granddaughter found the patient wedged between the sink and toilet. The niece reports patients insulin pen was on the floor of the bathroom, so they are unsure patient had her insulin medication. The niece reports a similar incident in the past, at that time she was informed of a brain bleed. Patients glucose was recorded to be over 600. Allergies: NKA Surgical history: Cardiac stents(03/2016, 12/2016) and Bladder cysts Social history: None reported PCP: Dr Julio Cardio: Dr Beavers <Janelle Wilkes - Last Filed: 12/28/17 01:52> <Evangelina Puente - Last Filed: 12/28/17 19:55> - General Chief Complaint: Altered Mental Status Stated Complaint: HYPERGLYCEMIA Time Seen by Provider: 12/28/17 01:29 Past History <Janelle Wilkes - Last Filed: 12/28/17 01:52> - Past Medical History Anemia: No Asthma: No Cancer: No Cardiac Disorders: Yes (2 stent) CVA: Yes (R facial droop and RUE weakness) COPD: No CHF: Yes Dementia: No Diabetes: Yes GI Disorders: No Disorders: No HTN: Yes Hypercholesterolemia: Yes Liver Disease: No Seizures: No Thyroid Disease: No - Surgical History Abdominal Surgery: No Appendectomy: No Cardiac Surgery: Yes (2 Stents) Cholecystectomy: No Lung Surgery: No Neurologic Surgery: Yes (BRAIN SX S/P FALL) Orthopedic Surgery: No - Immunization History Immunization Up to Date: Yes - Suicide/Smoking/Psychosocial Hx Smoking Status: No Smoking History: Never smoked Have you smoked in the past 12 months: No Number of Cigarettes Smoked Daily: 0 If you are a former smoker, when did you quit?: 30YR Hx Alcohol Use: No Drug/Substance Use Hx: No Substance Use Type: None Hx Substance Use Treatment: No <Evangelina Puente - Last Filed: 12/28/17 19:55> - Past Medical History Allergies/Adverse Reactions: Allergies Allergy/AdvReac Type Severity Reaction Status Date / Time No Known Allergies Allergy Verified 12/28/17 01:19 Home Medications: Ambulatory Orders Insulin Aspart (Niacinamide) [Fiasp 100 Unit/ml Vial] 16 unit SQ TID 07/07/17 Insulin Detemir [Levemir Flextouch] 34 unit SQ HS 07/07/17 Amlodipine Besylate [Norvasc -] 2.5 mg PO DAILY 07/08/17 Gabapentin 600 mg PO TID 07/08/17 Clopidogrel Bisulfate [Clopidogrel] 75 mg PO DAILY 11/03/17 Darunavir Ethanolate [Prezista -] 600 mg PO BID 11/03/17 Duloxetine HCl [Cymbalta -] 30 mg PO BID 11/03/17 Etravirine [Intelence -] 200 mg PO BID 11/03/17 Lisinopril [Prinivil] 20 mg PO DAILY 11/03/17 Metoprolol Succinate [Toprol XL -] 100 mg PO BID 11/03/17 Raltegravir [Isentress -] 400 mg PO BID 11/03/17 Ritonavir 100 mg PO BID 11/03/17 Tramadol HCl 50 mg PO TID PRN #8 tablet MDD 3 tabs 11/03/17 Warfarin Sodium [Coumadin] 7.5 mg PO ASDIR 12/03/17 Review of Systems - Review of Systems Able to Perform ROS?: No (Due to AMS. ) <Janelle Wilkes - Last Filed: 12/28/17 01:52> *Physical Exam - Vital Signs Last Vital Signs Temp Pulse Resp BP Pulse Ox 98.8 F 116 H 18 187/131 100 12/28/17 01:17 12/28/17 01:17 12/28/17 01:17 12/28/17 01:17 12/28/17 01:17 <Janelle Wilkes - Last Filed: 12/28/17 01:52> - Vital Signs Last Vital Signs Temp Pulse Resp BP Pulse Ox 98.8 F 116 H 18 187/131 100 12/28/17 01:17 12/28/17 01:17 12/28/17 01:17 12/28/17 01:17 12/28/17 01:17 <Evangelina Puente - Last Filed: 12/28/17 19:55> Critical Care Time/MDM Note Total Critical Care Time: 90 Critical Care Statement: The care of this patient involved high complexity decision making to prevent further life threatening deterioration of the patient 's condition and/or to evaluate & treat vital organ system(s) failure or risk of failure. - Medical Decision Making Note: 12/28/17 02:[address] head result not back; however, I see no pathology on the CT head. I placed a Right EJ IV line. Pt is receiving 1L NSS, as well as ofirmev 1g since she feels febrile. Pt has EKG changes + new LBBB I will transfer her to [facility] a stemi center. Pt's family refusing transfer to [facility] in the [place], as she "hates [facility]," as per family. Dr. Bernstein is the accepting physician. Dr. Villanueva is the cardio fellow who I spoke to. 12/28/17 03:06 Pt is hypothermic at 96.4 rectal temp. Андрей Grant on patient. CXR portable done: cardiomegaly; costophrenic angles seem sharp. Pt has cephalization of vesseks bilaterally 12/28/17 03:41 Patient Name: KG MCDERMOTT THIS IS A PRELIMINARY REPORT FROM [employer] DATE OF SERVICE: 2017-12-28 01:22:59 IMAGES: 146 EXAM: CT BRAIN WITHOUT INTRAVENOUS CONTRAST. HISTORY: . Altered mental status. COMPARISON: No prior images are available for comparison.. FINDINGS: 1. small region of decreased attenuation seen within the right frontal lobe, axial image 12, suspicious for a small acute/subacute cortical infarct. Further evaluation with MRI of brain can be obtained. 2. Age-indeterminate bilateral ganglia/adjacent white matter lacunar infarcts. 3. Probable chronic infarct in the left centrum semiovale with associated sulcal volume loss. Otherwise, no intracranial bleed or extra-axial fluid collection, mass effect or midline shift seen. 4. small region of decreased attenuation within the left occipital lobe white matter, axial image 18. Present sequela of small vessel ischemic disease. 5.There is a shrunken right ocular globe which demonstrates homogeneous increased attenuation with calcification consistent with phthisis bulbi . 6. Right frontotemporal craniotomy. Individualized dose optimization techniques were used for this CT. THIS DOCUMENT HAS BEEN ELECTRONICALLY SIGNED 12/28/17 19:51 Diagnoses: New LBBB Syncope altered MS Suspicious New ischemic CVA Uncontrolled DM HIV+, unknown CD4 and VL Pt was transferred via stat team to [facility] <Evangelina Puente - Last Filed: 12/28/17 19:55> Discharge Disposition <Janelle Wilkes - Last Filed: 12/28/17 01:52> - Discharge Dispostion Decision to Admit order: No - Transfer to Acute Care Facility Receiving Facility: [facility]. <Evangelina Puente - Last Filed: 12/28/17 19:55> - Diagnosis Diabetes, HTN (hypertension), HIV (human immunodeficiency virus infection), Obesity, Hyperlipidemia, New onset left bundle branch block (LBBB), Ischemic stroke - Discharge Dispostion Disposition: TRANSFER ACUTE CARE/OTHER HOSP Condition at time of disposition: Guarded - Referrals Referrals: Berry Julio MD [Primary Care Provider] -
[2017-12-28 01:43] LABS: BASO % 1.1 % (0-2.0); EOS % 0.1 % (0-4.5); HEMATOCRIT 36.3 % (32.4-45.2); HEMOGLOBIN 11.6 GM/dL (10.7-15.3); LYMPH % 7.4 % (8-40); MCH 29.9 pg (25.7-33.7); MCHC 32.1 g/dl (32.0-36.0); MEAN CELL VOLUME 93.1 fl (80-96); MEAN PLT VOLUME 10.2 fl (7.5-11.1); MONO % 6.2 % (3.8-10.2); NEUT % 85.2 % (42.8-82.8); PLATELET COUNT 235 K/MM3 (134-434); WHITE BLOOD COUNT 9.2 K/mm3 (4.0-10.0)
[2017-12-28 01:54] LABS: INR 1.4 (0.83-1.09); PROTHROMBIN TIME (PATIENT) 15.8 SEC (9.7-13.0)
[2017-12-28] MEDS ORDERED: ACETAMINOPHEN 1000 MG/100 ML VIAL (NON FORMULARY) IVPB ONE (02:22)
[2017-12-28] MEDS ORDERED: ACETAMINOPHEN INJECTION 100 ML IVPB ONE (02:29)
[2017-12-28 02:40] LABS: ALBUMIN 2.4 g/dl (3.4-5.0); ANION GAP 12 MMOL/L (8-16); BILIRUBIN,TOTAL 0.2 mg/dL (0.2-1.0); BLOOD UREA NITROGEN 42 mg/dL (7-18); CHLORIDE 97 mmol/L (98-107); CO2 18 mmol/L (21-32); CREATININE 2.6 mg/dL (0.55-1.02); POTASSIUM 4.4 mmol/L (3.5-5.1); SGOT/AST 23 U/L (15-37); SGPT/ALT 20 U/L (12-78); SODIUM 127 mmol/L (136-145); TOT PROT 6.7 g/dl (6.4-8.2)
[2017-12-28 02:41] LABS: ALK PHOS 101 U/L (45-117)
[2017-12-28 02:43] LABS: GLUCOSE,RANDOM 895 mg/dL (74-106)
[2017-12-28] MEDS ORDERED: INSULIN REGULAR HUMAN 100 UNITS/ML *VIAL IVPUSH ONE (02:44)
[2017-12-28] MEDS ORDERED: PIPERACILLIN/TAZOB 3.375 GM 3.375 GM in DEXTROSE 5%-WATER - 50 ML IVPB ONE (02:47)
[2017-12-28] MEDS ORDERED: INSULIN REGULAR HUMAN 100 UNITS/ML *VIAL ONE (02:48)
[2017-12-28 02:50] LABS: URINE APPEARANCE CLEAR; URINE BILIRUBIN NEGATIVE (<2.0 mg/dL); URINE COLOR STRAW; URINE GLUCOSE (UA) 3+ (NEGATIVE); URINE KETONE NEGATIVE (NEGATIVE); URINE LEUK ESTERASE NEGATIVE (NEGATIVE); URINE NITRITE NEGATIVE (NEGATIVE); URINE UROBILINOGEN NEGATIVE mg/dL (0.2-1.0)
[2017-12-28] MEDS ORDERED: PIPERACILLIN/TAZOB 3.375 GM 3.375 GM/50 ML BAG IVPB ONE (02:50)
[2017-12-28 02:53] LABS: URINE PROTEIN 2+ (NEGATIVE)
[2017-12-28] MEDS ORDERED: ASPIRIN 81 MG CHEWABLE TABLETS PO ONE (02:53)
[2017-12-28] MEDS ORDERED: ASPIRIN 81 MG CHEWABLE TABLETS ONE (02:53)
[2017-12-28 02:57] LABS: EPI CELLS RARE /HPF (FEW); URINE BACTERIA FEW /hpf (NONE SEEN); URINE MUCUS RARE
[2017-12-28] MEDS ORDERED: LORazepam 2 MG/ML SDV VIAL ONE (03:05)
[2017-12-28] MEDS ORDERED: METOPROLOL TARTRATE 5 MG/5 ML VIAL IVPUSH ONE (03:40)
[2017-12-28] MEDS ORDERED: METOPROLOL TARTRATE 5 MG/5 ML VIAL ONE (03:40)
[2017-12-28 04:26] VITALS: BP 153/97; PULSE 113; TEMP 97.4
--- NOTE | 2017-12-30 11:10 | EKG ---
Test Reason : Blood Pressure : / mmHG Vent. Rate : 116 BPM Atrial Rate : 116 BPM P-R Int : 000 ms QRS Dur : 154 ms QT Int : 392 ms P-R-T Axes : 005 -46 106 degrees QTc Int : 544 ms SINUS TACHYCARDIA LEFT AXIS DEVIATION LEFT BUNDLE BRANCH BLOCK ABNORMAL ECG WHEN COMPARED WITH ECG OF 03-DEC-2017 12:14, VENT. RATE HAS INCREASED BY 44 BPM LEFT BUNDLE BRANCH BLOCK IS NOW PRESENT Confirmed by JOSE MORSE, ARI ([id number]) on 12/30/2017 11:10:14 AM Referred By: Confirmed By:ARI GARCIA MD
== END 2017-12-28 04:10 | disposition short-term general hospital (02) ==
LOC: JER 01:08
PROC: 3E03329 Introduction of Other Anti-infective into Peripheral Vein, Percutaneous Approach (ICD-10-PCS; principal; 2017-12-28)
PROC: 3E033NZ Introduction of Analgesics, Hypnotics, Sedatives into Peripheral Vein, Percutaneous Approach (ICD-10-PCS; 2017-12-28)
PROC: 3E033GC Introduction of Other Therapeutic Substance into Peripheral Vein, Percutaneous Approach (ICD-10-PCS; 2017-12-28)
PROC: 3E033VG Introduction of Insulin into Peripheral Vein, Percutaneous Approach (ICD-10-PCS; 2017-12-28)
PROC: 3E033NZ Introduction of Analgesics, Hypnotics, Sedatives into Peripheral Vein, Percutaneous Approach (ICD-10-PCS; 2017-12-28)
PROC: 05HP33Z Insertion of Infusion Device into Right External Jugular Vein, Percutaneous Approach (ICD-10-PCS; 2017-12-28)
DX: I63.8 Other cerebral infarction (principal); I44.7 Left bundle-branch block, unspecified; I25.10 Atherosclerotic heart disease of native coronary artery without angina pectoris; I25.2 Old myocardial infarction; I13.0 Hypertensive heart and chronic kidney disease with heart failure and stage 1 through stage 4 chronic kidney disease, or unspecified chronic kidney disease; E11.22 Type 2 diabetes mellitus with diabetic chronic kidney disease; N18.9 Chronic kidney disease, unspecified; I50.30 Unspecified diastolic (congestive) heart failure; Z79.4 Long term (current) use of insulin; E78.00 Pure hypercholesterolemia, unspecified; Z21 Asymptomatic human immunodeficiency virus [HIV] infection status; Z86.718 Personal history of other venous thrombosis and embolism; Z79.01 Long term (current) use of anticoagulants; Z87.01 Personal history of pneumonia (recurrent); I69.892 Facial weakness following other cerebrovascular disease; I69.851 Hemiplegia and hemiparesis following other cerebrovascular disease affecting right dominant side; Z87.828 Personal history of other (healed) physical injury and trauma
CPT/HCPCS: 36415; 36556; 70450-TC; 71045-TC-FY; 80053; 81003; 81015; 82009; 82550; 82553; 83605; 84484; 85025; 85610; 87040; 87086; 93005; 93010; 96365; 96375; 99282-25; G0480; J0131

== ENCOUNTER 2018-05-05 13:57 | Inpatient (IN) | payer OTHER ==
--- NOTE | 2018-05-05 14:30 | PDOC ---
History of Present Illness - General Chief Complaint: Injury Stated Complaint: KNEE PAIN Time Seen by Provider: 05/05/18 14:30 - History of Present Illness Initial Comments: 67F with h/o HTN, IDDM, HLD, HIV (VL and CD4 unknown), CVA (Residual R sided weakness), subdural hematoma, CKD, CAD, CHF (last ECHO 07/07 EF62%), DVT (08/2017 ) previously on Coumadin presenting with right knee pain and left heel pain for the pat few weeks. Patient's family at bedside state that she is bed bound since a recent stroke and fall and was rehabbing at a NH discharged 3 days prior. Since she has been home during the weekend the patient has complained of right knee pain and left heel pain. Family states they know she fell and hit her right knee at rehab a few weeks ago and has had pain since. Her right heel has argelia black since she came home but is unclear when this started or how it happened. Also of note, her medications seem to be in slight disarray as she is no longer on Coumadin but now on heparin sub q BID (apparently a prophylactic dose). 05/05/18 14:35 Past History - Past Medical History Allergies/Adverse Reactions: Allergies Allergy/AdvReac Type Severity Reaction Status Date / Time No Known Allergies Allergy Verified 05/05/18 14:02 Home Medications: Ambulatory Orders Amlodipine Besylate [Norvasc -] 2.5 mg PO DAILY 07/08/17 Gabapentin 600 mg PO TID 07/08/17 Clopidogrel Bisulfate [Clopidogrel] 75 mg PO DAILY 11/03/17 Darunavir Ethanolate [Prezista -] 600 mg PO BID 11/03/17 Duloxetine HCl [Cymbalta -] 30 mg PO BID 11/03/17 Etravirine [Intelence -] 200 mg PO BID 11/03/17 Lisinopril [Prinivil] 20 mg PO DAILY 11/03/17 Metoprolol Succinate [Toprol XL -] 100 mg PO BID 11/03/17 Raltegravir [Isentress -] 400 mg PO BID 11/03/17 Ritonavir 100 mg PO BID 11/03/17 Tramadol HCl 50 mg PO TID PRN #8 tablet MDD 3 tabs 11/03/17 Warfarin Sodium [Coumadin] 7.5 mg PO ASDIR 12/03/17 Anemia: No Asthma: No Cancer: No Cardiac Disorders: Yes (2 stent) CVA: Yes (R facial droop and RUE weakness) COPD: No CHF: Yes Dementia: No Diabetes: Yes GI Disorders: No Disorders: No HTN: Yes Hypercholesterolemia: Yes Liver Disease: No Seizures: No Thyroid Disease: No - Surgical History Abdominal Surgery: No Appendectomy: No Cardiac Surgery: Yes (2 Stents) Cholecystectomy: No Lung Surgery: No Neurologic Surgery: Yes (BRAIN SX S/P FALL) Orthopedic Surgery: No - Immunization History Immunization Up to Date: Yes - Suicide/Smoking/Psychosocial Hx Smoking Status: No Smoking History: Never smoked Have you smoked in the past 12 months: No Number of Cigarettes Smoked Daily: 0 If you are a former smoker, when did you quit?: 30YR Hx Alcohol Use: No Drug/Substance Use Hx: No Substance Use Type: None Hx Substance Use Treatment: No Review of Systems - Review of Systems Constitutional: Yes: Weakness. No: Chills, Diaphoresis, Fever, Loss of Appetite HEENTM: No: Eye Pain, Blurred Vision, Tearing Respiratory: No: Cough, Orthopnea, Shortness of Breath, SOB with Exertion Cardiac (ROS): No: Chest Pain, Edema, Irregular Heart Rate ABD/GI: No: Diarrhea, Nausea, Vomiting : No: Burning, Dysuria, Discharge, Frequency Musculoskeletal: Yes: Joint Swelling, Joint Stiffness. No: Back Pain, Gout, Joint Pain Integumentary: No: Bruising, Lesions, Lumps Neurological: Yes: Pre-Existing Deficit. No: Headache, Numbness Psychiatric: No: Anxiety, Depression Endocrine: No: Flushing Hematologic/Lymphatic: Yes: Blood Clots. No: Anemia *Physical Exam - Vital Signs Last Vital Signs Temp Pulse Resp BP Pulse Ox 98.1 F 78 18 110/62 100 05/05/18 14:02 05/05/18 14:02 05/05/18 14:02 05/05/18 14:02 05/05/18 14:02 - Physical Exam General Appearance: Yes: Nourished, Appropriately Dressed. No: Apparent Distress HEENT: positive: EOMI, SHWETA, Normal ENT Inspection, Normal Voice Neck: positive: Trachea midline, Normal Thyroid, Supple. negative: Tender, Rigid Respiratory/Chest: positive: Lungs Clear, Normal Breath Sounds. negative: Chest Tender, Respiratory Distress, Accessory Muscle Use Cardiovascular: positive: Regular Rhythm, Regular Rate Gastrointestinal/Abdominal: positive: Normal Bowel Sounds, Flat, Soft. negative : Tender Lymphatic: negative: Adenopathy, Tenderness Musculoskeletal: negative: Normal Inspection (residual weakness in right upper and right lower extremity with swelling of right knee and right lower leg > than left) Extremity: positive: Normal Capillary Refill, Tender (tender right knee). negative: Normal Inspection, Normal Range of Motion Integumentary: positive: Normal Color, Dry, Warm Neurologic: positive: Alert, Normal Mood/Affect, Normal Response. negative: Fully Oriented, Motor Strength 5/5 Moderate Sedation - Procedure Monitoring Vital Signs: Procedure Monitoring Vital Signs Temperature 98.1 F 05/05/18 14:02 Pulse Rate 78 05/05/18 14:02 Respiratory Rate 18 05/05/18 14:02 Blood Pressure 110/62 05/05/18 14:02 O2 Sat by Pulse Oximetry (%) 100 05/05/18 14:02 ED Treatment Course - LABORATORY CBC & Chemistry Diagram: 05/05/18 16:45 05/05/18 16:45 - Consult/PCP Time Called: 17:52 Medical Decision Making - Medical Decision Making Per convo wit her PMD Dr nesbitt: Creatinine of 1.8, A1C 10.4, VL <1.6, CD4 611, ( October 24 2017). Patient has home care set up and medicare status active according to our case manager. However, patient should be on AC becuase of her DVT history and definitely not on heparin subq per her NH discharge. Also of note, her NH told her she was not longer diabetic and DC'd her insulin. 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 Patient admitted under Dr. Portillo. 05/05/18 17:30 *DC/Admit/Observation/Transfer Diagnosis at time of Disposition: Inadequate anticoagulation - Discharge Dispostion Disposition: HOME Condition at time of disposition: Stable Decision to Admit order: Yes - Referrals - Patient Instructions - Post Discharge Activity
--- NOTE | 2018-05-05 16:21 | PDOC ---
Attending Attestation - Resident Resident Name: Jona Grande - ED Attending Attestation I have performed the following: I have examined & evaluated the patient, The case was reviewed & discussed with the resident, I agree w/resident's findings & plan, Exceptions are as noted - HPI HPI: 05/05/18 17:20 67-year-old female history of CHF, CAD status post [place] and placement, IDDM, hypertension, hyperlipidemia, HIV, CVA (residual RUE weaknesS), CKD, cad, hx of subdural hematoma, recent admission to rehab and was sent home a few days ago, presents with complaint of R knee pain and L heel pain. Per family the patient had a fall on 04/13, and has been having R knee pain since then. Pt has been unable to range her knee since and unable to ambulate for several months and has been bed bound. Pt also has been having increased L heel pain and family notes there was a scab there - no discharge, fever/chills, bleeding. ot deines any cp, sob, fever/chills, n/v. PCP: Lior Julio - Physicial Exam PE: 05/05/18 17:29 GENERAL: The patient is awake, alert, and fully oriented, Nontoxic - in no acute distress LUNGS: Breath sounds equal, clear to auscultation bilaterally. No wheezes, no rhonchi, no rales. HEART: Regular rate and rhythm, ABDOMEN: Soft, nontender, obese abdomen EXTREMITIES: Intact tenderness to the anterior patella, mild soft tissue edema of the right knee, pain with passive range of motion. No erythema, warmth to touch. L heel: Large eschar on the left heel, no fluctuance, erythema, induration, mildly tender to palpation. - Medical Decision Making 05/05/18 16:18 L heel: eschar/unstable ulcer - no signs of active infection will ck labs to r/o leukocytosis esr/crp/heel xray to r/o osteo R knee: diffus tttp to patella will r/o fx tylenol for pain on her paperwork, pt is on heparin BID -- unclear if this is for dvt - will dw pmd regarding optimal medical management molly [facility] case management as the patient may need some asistance at home
[2018-05-05] MEDS ORDERED: ACETAMINOPHEN 500 MG TABLET (FP) PO ONE (16:49)
[2018-05-05 17:47] LABS: ALBUMIN 1.8 g/dl (3.4-5.0); ALK PHOS 89 U/L (45-117); ANION GAP 10 MMOL/L (8-16); BILIRUBIN,TOTAL 0.3 mg/dL (0.2-1); BLOOD UREA NITROGEN 26 mg/dL (7-18); CHLORIDE 100 mmol/L (98-107); CO2 25 mmol/L (21-32); CREATININE 2.4 mg/dL (0.55-1.3); GLUCOSE,RANDOM 174 mg/dL (74-106); SGOT/AST 20 U/L (15-37); SGPT/ALT 11 U/L (13-61); SODIUM 135 mmol/L (136-145); TOT PROT 6.4 g/dl (6.4-8.2)
[2018-05-05 17:50] LABS: POTASSIUM 2.8 mmol/L (3.5-5.1)
[2018-05-05] MEDS ORDERED: POTASSIUM CHLORIDE TABS 20 MEQ TABLET.ER (FP) PO ONE (17:57)
[2018-05-05] MEDS ORDERED: POTASSIUM CHLORIDE ORAL LIQUID 20 MEQ/15 ML ONE (18:28)
--- NOTE | 2018-05-05 19:51 | HP ---
Admitting History and Physical - Primary Care Physician PCP: Steph Portillo - Admission History of Present Illness: 67-year-old female history of CHF, CAD status post [place] and placement, IDDM, hypertension, hyperlipidemia, HIV, CVA (residual RUE weaknesS), CKD, cad, hx of subdural hematoma, recent admission to rehab and was sent home a few days ago, presents with complaint of R knee pain and L heel pain. Per family the patient had a fall on 04/13, and has been having R knee pain since then. Pt has been unable to range her knee since and unable to ambulate for several months and has been bed bound. 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) Cardiovascular: Yes: CAD, CHF, HTN, Hyperlipdemia Renal/: Yes: Renal Inusuff Infectious Disease: Yes: HIV Psych: Yes: Anxiety Endocrine: Yes: Diabetes Mellitus - Past Surgical History Past Surgical History: Yes: Breast Biopsy, Stent (coronary) - Smoking History Smoking history: Never smoked Have you smoked in the past 12 months: No Aproximately how many cigarettes per day: 0 If you are a former smoker, when did you quit?: 30YR - Alcohol/Substance Use Hx Alcohol Use: No - Social History History of Recent Travel: Yes ([place]; returned 08/27/17) Home Medications - Allergies Allergies/Adverse Reactions: Allergies Allergy/AdvReac Type Severity Reaction Status Date / Time No Known Allergies Allergy Verified 05/05/18 14:02 - Home Medications Home Medications: Ambulatory Orders Amlodipine Besylate [Norvasc -] 2.5 mg PO DAILY 07/08/17 Gabapentin 600 mg PO TID 07/08/17 Clopidogrel Bisulfate [Clopidogrel] 75 mg PO DAILY 11/03/17 Darunavir Ethanolate [Prezista -] 600 mg PO BID 11/03/17 Duloxetine HCl [Cymbalta -] 30 mg PO BID 11/03/17 Etravirine [Intelence -] 200 mg PO BID 11/03/17 Lisinopril [Prinivil] 20 mg PO DAILY 11/03/17 Metoprolol Succinate [Toprol XL -] 100 mg PO BID 11/03/17 Raltegravir [Isentress] 400 mg PO BID 11/03/17 Ritonavir 100 mg PO BID 11/03/17 Tramadol HCl 50 mg PO TID PRN #8 tablet MDD 3 tabs 11/03/17 Warfarin Sodium [Coumadin] 7.5 mg PO ASDIR 12/03/17 Family Disease History - Family Disease History Family Disease History: Diabetes: Mother, Heart Disease: Mother Physical Examination Vital Signs: Vital Signs Temperature 98.4 F 05/05/18 18:00 Pulse Rate 74 05/05/18 18:00 Respiratory Rate 18 05/05/18 18:00 Blood Pressure 110/78 05/05/18 18:00 O2 Sat by Pulse Oximetry (%) 99 05/05/18 18:00 Constitutional: Yes: No Distress HENT: Yes: Atraumatic Neck: Yes: Supple Cardiovascular: Yes: Regular Rate and Rhythm Respiratory: Yes: CTA Bilaterally Gastrointestinal: Yes: Normal Bowel Sounds Extremities: Yes: WNL Edema: No Peripheral Pulses WNL: Yes Neurological: Yes: Alert, Oriented Labs: CBC, BMP 05/05/18 16:45 05/05/18 16:45 Problem List - Problems (1) CHF (congestive heart failure) Code(s): I50.9 - HEART FAILURE, UNSPECIFIED (2) CKD (chronic kidney disease) Code(s): N18.9 - CHRONIC KIDNEY DISEASE, UNSPECIFIED (3) Diabetes Code(s): E11.9 - TYPE 2 DIABETES MELLITUS WITHOUT COMPLICATIONS (4) HIV (human immunodeficiency virus infection) Assessment/Plan: continue home meds Code(s): Z21 - ASYMPTOMATIC HUMAN IMMUNODEFICIENCY VIRUS INFECTION STATUS (5) HTN (hypertension) Assessment/Plan: on meds stable Code(s): I10 - ESSENTIAL (PRIMARY) HYPERTENSION (6) Hyperlipidemia Code(s): E78.5 - HYPERLIPIDEMIA, UNSPECIFIED (7) Obesity Code(s): E66.9 - OBESITY, UNSPECIFIED (8) Subdural hematoma Code(s): S06.5X9A - TRAUM SUBDR HEM W LOC OF UNSP DURATION, INIT Assessment/Plan Laboratory Results - last 24 hr 05/05/18 05/05/18 16:45 16:45 WBC Cancelled Corrected WBC (auto) Cancelled RBC Cancelled Hgb Cancelled Hct Cancelled MCV Cancelled MCH Cancelled MCHC Cancelled RDW Cancelled Plt Count Cancelled MPV Cancelled Absolute Neuts (auto) Cancelled Neutrophils % Cancelled Lymphocytes % Cancelled Monocytes % Cancelled Eosinophils % Cancelled Basophils % Cancelled Nucleated RBC % Cancelled Platelet Estimate Cancelled Platelet Comment Cancelled ESR Cancelled Sodium 135 L Potassium 2.8 L* Chloride 100 Carbon Dioxide 25 Anion Gap 10 BUN 26 H Creatinine 2.4 H Creat Clearance w eGFR 20.02 Random Glucose 174 H Calcium 8.0 L Total Bilirubin 0.3 AST 20 ALT 11 L Alkaline Phosphatase 89 C-Reactive Protein 7.3 H Total Protein 6.4 Albumin 1.8 L Active Medications Generic Name Dose Route Start Last Admin Trade Name Freq PRN Reason Stop Dose Admin Amlodipine Besylate 2.5 mg 05/06/18 10:00 05/06/18 10:48 Norvasc - PO 2.5 mg DAILY WILNER Administration Clopidogrel Bisulfate 75 mg 05/06/18 10:00 05/06/18 10:48 Plavix - PO 75 mg DAILY WILNER Administration Darunavir 600 mg 05/05/18 22:00 05/06/18 10:48 Prezista - PO 600 mg BID WILNER Administration Duloxetine HCl 30 mg 05/05/18 22:00 05/06/18 10:48 Cymbalta - PO 30 mg BID WILNER Administration Etravirine 200 mg 05/05/18 20:30 05/06/18 10:48 Intelence - PO 200 mg BIDPC WILNER Administration Gabapentin 600 mg 05/05/18 22:00 05/06/18 13:29 Neurontin - PO Not Given TID PENDING SALE TO [facility] Heparin Sodium (Porcine) 5,000 unit 05/05/18 22:00 05/06/18 10:48 Heparin - SQ 5,000 unit BID WILNER Administration Lisinopril 20 mg 05/06/18 10:00 05/06/18 10:48 Prinivil PO 20 mg DAILY WILNER Administration Metoprolol Succinate 100 mg 05/05/18 22:00 05/06/18 10:48 Toprol Xl - PO 100 mg BID WILNER Administration Potassium Chloride 40 meq 05/06/18 10:00 05/06/18 10:48 Potassium Chloride Oral Liquid PO 40 meq BID WILNER Administration
[2018-05-05] MEDS: ETRAVIRINE 100 MG TABLET PO SCH (20:30)
[2018-05-05] MEDS: DARUNAVIR ETHANOLATE 600 MG TAB PO SCH (22:10)
[2018-05-05] MEDS: HEPARIN NA (PORCINE) 5,000 UNITS/ML 1ML VIAL SQ SCH (22:10)
[2018-05-05] MEDS: DULoxetine HCL 30 MG CAPSULE.DR (FP) PO SCH (22:10)
[2018-05-05] MEDS: GABAPENTIN 300 MG CAPSULE (FP) PO SCH (22:10)
--- NOTE | 2018-05-05 22:18 | CON.CARD ---
Consult Consult Specialty:: Cardiology - History of Present Illness History of Present Illness: 67-year-old female history of CHF, CAD status post [place] and placement, IDDM, hypertension, hyperlipidemia, HIV, CVA (residual RUE weaknesS), CKD, cad, hx of subdural hematoma, recent admission to rehab and was sent home a few days ago, presents with complaint of R knee pain and L heel pain. Per family the patient had a fall on 04/13, and has been having R knee pain since then. Pt has been unable to range her knee since and unable to ambulate for several months and has been bed bound. Pt also has been having increased L heel pain patient was on coumadin for dvt but not since fall admitted as per pmd to evaluate when to start back coumadin PMH Suffered fall in April 2016 which caused SDH treated with craniotomy and post procedure Plavix was stopped. Ongoing medical problems CAD CVA 2015 D1 70% mLAD 40% January 15, 2013 Dr. Valladares DOLORES of proximal and mid RCA January 15, 2013 Dr. 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) Cardio/Vascular: Yes: CAD, CHF, HTN, Hyperlipdemia Renal/: Yes: Renal Inusuff Infectious Disease: Yes: HIV Psych: Yes: Anxiety Endocrine: Yes: Diabetes Mellitus - Past Surgical History Past Surgical History: Yes: Breast Biopsy, Stent (coronary) - Alcohol/Substance Use Hx Alcohol Use: No - Smoking History Smoking history: Never smoked Have you smoked in the past 12 months: No Aproximately how many cigarettes per day: 0 If you are a former smoker, when did you quit?: 30YR - Social History History of Recent Travel: Yes ([place]; returned 08/27/17) Home Medications - Allergies Allergies/Adverse Reactions: Allergies Allergy/AdvReac Type Severity Reaction Status Date / Time No Known Allergies Allergy Verified 05/05/18 14:02 - Home Medications Home Medications: Ambulatory Orders Amlodipine Besylate [Norvasc -] 2.5 mg PO DAILY 07/08/17 Gabapentin 600 mg PO TID 07/08/17 Clopidogrel Bisulfate [Clopidogrel] 75 mg PO DAILY 11/03/17 Darunavir Ethanolate [Prezista -] 600 mg PO BID 11/03/17 Duloxetine HCl [Cymbalta -] 30 mg PO BID 11/03/17 Etravirine [Intelence -] 200 mg PO BID 11/03/17 Lisinopril [Prinivil] 20 mg PO DAILY 11/03/17 Metoprolol Succinate [Toprol XL -] 100 mg PO BID 11/03/17 Raltegravir [Isentress -] 400 mg PO BID 11/03/17 Ritonavir 100 mg PO BID 11/03/17 Tramadol HCl 50 mg PO TID PRN #8 tablet MDD 3 tabs 11/03/17 Warfarin Sodium [Coumadin] 7.5 mg PO ASDIR 12/03/17 Family Disease History - Family Disease History Family Disease History: Diabetes: Mother, Heart Disease: Mother Review of Systems - Review of Systems Constitutional: reports: No Symptoms Eyes: reports: No Symptoms HENT: reports: No Symptoms Neck: reports: No Symptoms Cardiovascular: reports: No Symptoms Gastrointestinal: reports: No Symptoms Genitourinary: reports: No Symptoms Breasts: reports: No Symptoms Reported Musculoskeletal: reports: No Symptoms Integumentary: reports: No Symptoms Neurological: reports: No Symptoms Endocrine: reports: No Symptoms Hematology/Lymphatic: reports: No Symptoms Psychiatric: reports: No Symptoms Vital Signs: Vital Signs Temperature 98.4 F 05/05/18 18:00 Pulse Rate 74 05/05/18 18:00 Respiratory Rate 18 05/05/18 18:00 Blood Pressure 110/78 05/05/18 18:00 O2 Sat by Pulse Oximetry (%) 99 05/05/18 18:00 Constitutional: Yes: Well Nourished, No Distress, Calm Eyes: Yes: WNL, Conjunctiva Clear, EOM Intact HENT: Yes: WNL, Atraumatic, Normocephalic Neck: Yes: WNL, Supple, Trachea Midline Respiratory: Yes: WNL, Regular, CTA Bilaterally Gastrointestinal: Yes: WNL, Normal Bowel Sounds Renal/: Yes: WNL Cardiovascular: Yes: WNL, Regular Rate and Rhythm Musculoskeletal: Yes: WNL Extremities: Yes: WNL Integumentary: Yes: WNL Neurological: Yes: WNL, Alert, Oriented ...Motor Strength: WNL Psychiatric: Yes: WNL, Alert, Oriented - Other Data Labs, Other Data: CBC, BMP 05/05/18 16:45 05/05/18 16:45 Imaging - Results Chest X-ray: Pending EKG: Pending Problem List - Problems (1) NÉSTOR (acute kidney injury) Code(s): N17.9 - ACUTE KIDNEY FAILURE, UNSPECIFIED (2) Acute electrocardiogram changes Code(s): R94.31 - ABNORMAL ELECTROCARDIOGRAM [ECG] [EKG] (3) Acute on chronic diastolic CHF (congestive heart failure) Code(s): I50.33 - ACUTE ON CHRONIC DIASTOLIC (CONGESTIVE) HEART FAILURE (4) Acute on chronic systolic and diastolic heart failure, NYHA class 2 Code(s): I50.43 - ACUTE ON CHRONIC COMBINED SYSTOLIC AND DIASTOLIC HRT FAIL (5) Acute pulmonary edema Code(s): J81.0 - ACUTE PULMONARY EDEMA (6) BiPAP (biphasic positive airway pressure) dependence Code(s): Z99.89 - DEPENDENCE ON OTHER ENABLING MACHINES AND DEVICES (7) CHF (congestive heart failure) Code(s): I50.9 - HEART FAILURE, UNSPECIFIED (8) Cerebrovascular accident (CVA) Code(s): I63.9 - CEREBRAL INFARCTION, UNSPECIFIED Qualifiers: CVA mechanism: unspecified Qualified Code(s): I63.9 - Cerebral infarction, unspecified (9) Chest pain Code(s): R07.9 - CHEST PAIN, UNSPECIFIED Qualifiers: Chest pain type: unspecified Qualified Code(s): R07.9 - Chest pain, unspecified (10) DVT (deep venous thrombosis) Code(s): I82.409 - ACUTE EMBOLISM AND THOMBOS UNSP DEEP VN UNSP LOWER EXTREMITY (11) Fracture of proximal phalanx of right little finger Code(s): S62.616A - DISP FX OF PROXIMAL PHALANX OF RIGHT LITTLE FINGER, INIT Qualifiers: Encounter type: initial encounter Fracture type: closed Fracture alignment: nondisplaced Qualified Code(s): S62.646A - Nondisplaced fracture of proximal phalanx of right little finger, initial encounter for closed fracture (12) [place] cardiac risk >20% in next 10 years Code(s): Z91.89 - OTH PERSONAL RISK FACTORS, NOT ELSEWHERE CLASSIFIED (13) Gout Code(s): M10.9 - GOUT, UNSPECIFIED (14) H/O traumatic subdural hematoma Code(s): Z87.828 - PERSONAL HISTORY OF OTH (HEALED) PHYSICAL INJURY AND TRAUMA (15) Hypertriglyceridemia Code(s): E78.1 - PURE HYPERGLYCERIDEMIA (16) Intracranial hemorrhage Code(s): I62.9 - NONTRAUMATIC INTRACRANIAL HEMORRHAGE, UNSPECIFIED (17) Ischemic stroke Code(s): I63.9 - CEREBRAL INFARCTION, UNSPECIFIED (18) Left-sided chest wall pain Code(s): R07.89 - OTHER CHEST PAIN (19) New onset left bundle branch block (LBBB) Code(s): I44.7 - LEFT BUNDLE-BRANCH BLOCK, UNSPECIFIED (20) Pulmonary hypertension Code(s): I27.20 - PULMONARY HYPERTENSION, UNSPECIFIED (21) Stented coronary artery Code(s): Z95.5 - PRESENCE OF CORONARY ANGIOPLASTY IMPLANT AND GRAFT (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 (23) CAD (coronary artery disease) Code(s): I25.10 - ATHSCL HEART DISEASE OF [place] CORONARY ARTERY W/O ANG PCTRS (24) CKD (chronic kidney disease) Code(s): N18.9 - CHRONIC KIDNEY DISEASE, UNSPECIFIED (25) Diabetes Code(s): E11.9 - TYPE 2 DIABETES MELLITUS WITHOUT COMPLICATIONS (26) HIV (human immunodeficiency virus infection) Code(s): Z21 - ASYMPTOMATIC HUMAN IMMUNODEFICIENCY VIRUS INFECTION STATUS (27) HTN (hypertension) Code(s): I10 - ESSENTIAL (PRIMARY) HYPERTENSION (28) Hyperlipidemia Code(s): E78.5 - HYPERLIPIDEMIA, UNSPECIFIED (29) Obesity Code(s): E66.9 - OBESITY, UNSPECIFIED (30) Sleep apnea Code(s): G47.30 - SLEEP APNEA, UNSPECIFIED (31) Subdural hematoma Code(s): S06.5X9A - TRAUM SUBDR HEM W LOC OF UNSP DURATION, INIT (32) CHF exacerbation Code(s): I50.9 - HEART FAILURE, UNSPECIFIED Qualifiers: Heart failure type: unspecified Qualified Code(s): I50.9 - Heart failure, unspecified (33) Hypertensive emergency Code(s): I16.1 - HYPERTENSIVE EMERGENCY Assessment/Plan 67-year-old female history of CHF, CAD status post [place] and placement, IDDM, hypertension, hyperlipidemia, HIV, CVA (residual RUE weaknesS), CKD, cad, hx of subdural hematoma, recent admission to rehab and was sent home a few days ago, presents with complaint of R knee pain and L heel pain. Per family the patient had a fall on 04/13, and has been having R knee pain since then. Pt has been unable to range her knee since and unable to ambulate for several months and has been bed bound. Pt also has been having increased L heel pain patient was on coumadin for dvt but not since fall admitted as per pmd to evaluate when to start back coumadin - Problems (1) Acute on chronic systolic and diastolic heart failure, NYHA class 2 Assessment/Plan: No JVD. CXR: no acute pathology. F/u BNP. On metoprolol, amlodipine, and lisinopril. BUN/Cr, electrolytes, Is and OS, daily weight. Code(s): I50.43 - ACUTE ON CHRONIC COMBINED SYSTOLIC AND DIASTOLIC HRT FAIL (2) Cerebrovascular accident (CVA) Code(s): I63.9 - CEREBRAL INFARCTION, UNSPECIFIED Qualifiers: CVA mechanism: unspecified Qualified Code(s): I63.9 - Cerebral infarction, unspecified (3) DVT (deep venous thrombosis) Assessment/Plan: hx provoked DVT; no longer on anticoagulant. Code(s): I82.409 - ACUTE EMBOLISM AND THOMBOS UNSP DEEP VN UNSP LOWER EXTREMITY (4) [place] cardiac risk >20% in next 10 years Assessment/Plan: Stress MIBI in 2013: f/u results. Consider reevaluation of coronary arteries, perhaps when pt has futher evaluation of possible noncompaction of LV. 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 On metoprolol, lisinopril, amlodipine. Code(s): I42.4 - ENDOCARDIAL FIBROELASTOSIS (6) Diabetes Code(s): E11.9 - TYPE 2 DIABETES MELLITUS WITHOUT COMPLICATIONS (7) Hyperlipidemia Assessment/Plan: LDL >180 mg/dL in 2018. Repeat profile. Start statin (LFTs WNL) Code(s): E78.5 - HYPERLIPIDEMIA, UNSPECIFIED (8) Subdural hematoma Code(s): S06.5X9A - TRAUM SUBDR HEM W LOC OF UNSP DURATION, INIT (9) HTN (hypertension) Code(s): I10 - ESSENTIAL (PRIMARY) HYPERTENSION (10) CKD (chronic kidney disease) Code(s): N18.9 - CHRONIC KIDNEY DISEASE, UNSPECIFIED (11) HIV (human immunodeficiency virus infection) Code(s): B20 - HUMAN IMMUNODEFICIENCY VIRUS [HIV] DISEASE (12) Falls Code(s): W19.XXXA - UNSPECIFIED FALL, INITIAL ENCOUNTER
[2018-05-06] MEDS: POTASSIUM CHLORIDE ORAL LIQUID 20 MEQ/15 ML PO SCH ×2 (10:48→21:47)
[2018-05-06] MEDS: ETRAVIRINE 100 MG TABLET PO SCH ×2 (10:48→19:35)
[2018-05-06] MEDS: CLOPIDOGREL BISULFATE 75 MG TABLET (FP) PO SCH (10:48)
[2018-05-06] MEDS: amLODIPine BESYLATE 2.5 MG TABLET (FP) PO SCH (10:48)
[2018-05-06] MEDS: HEPARIN NA (PORCINE) 5,000 UNITS/ML 1ML VIAL SQ SCH ×2 (10:48→21:47)
[2018-05-06] MEDS: LISINOPRIL 20 MG TABLET (FP) PO SCH (10:48)
[2018-05-06] MEDS: DARUNAVIR ETHANOLATE 600 MG TAB PO SCH ×2 (10:48→22:35)
[2018-05-06] MEDS: DULoxetine HCL 30 MG CAPSULE.DR (FP) PO SCH ×2 (10:48→21:47)
[2018-05-06 12:20] LABS: ALK PHOS 90 U/L (45-117); ANION GAP 12 MMOL/L (8-16); BILIRUBIN,TOTAL 0.4 mg/dL (0.2-1); BLOOD UREA NITROGEN 23 mg/dL (7-18); CALCIUM 8.2 mg/dL (8.5-10.1); CHLORIDE 102 mmol/L (98-107); CO2 21 mmol/L (21-32); CREATININE 2.5 mg/dL (0.55-1.3); GLUCOSE,RANDOM 220 mg/dL (74-106); POTASSIUM 3.8 mmol/L (3.5-5.1); SGOT/AST 16 U/L (15-37); SGPT/ALT 10 U/L (13-61); SODIUM 134 mmol/L (136-145); TOT PROT 6.8 g/dl (6.4-8.2)
[2018-05-06 12:33] LABS: BASO % 1.1 % (0-2.0); EOS % 3.1 % (0-4.5); HEMOGLOBIN 7.5 GM/dL (10.7-15.3); LYMPH % 18.1 % (8-40); MCH 26.7 pg (25.7-33.7); MCHC 32.4 g/dl (32.0-36.0); MEAN CELL VOLUME 82.5 fl (80-96); MEAN PLT VOLUME 7.1 fl (7.5-11.1); MONO % 5.7 % (3.8-10.2); PLATELET COUNT 342 K/MM3 (134-434); RBC 2.79 M/mm3 (3.60-5.2); WHITE BLOOD COUNT 7.7 K/mm3 (4.0-10.0)
[2018-05-06] MEDS: GABAPENTIN 300 MG CAPSULE (FP) PO SCH ×3 (13:00→21:47)
--- NOTE | 2018-05-06 14:10 | CONSULT ---
Consult Consult Specialty:: Hemonc Referred by:: Dr. Portillo Reason for Consultation:: DVT - History of Present Illness Chief Complaint: R knee pain and L heel pain History of Present Illness: 67 yo AA female dCHF, CAD s/p DE w/ stent x 2, IDDM, HTN, HLD, HIV (last CD4 ~ 600), R popliteal DVT, CVA w/ RUE weakness, subdural hemorrhage in 2017 p/w R knee and L heel pain s/p mechanical fall on 04/13. Patient is a poor historian as she's unable to recall how she fell in 03/2018 and how she sustained the subdural hematoma in 2016. In 08/2017, she's admitted to [facility] for CHF exacerbation where she's found to have R popliteal DVT near occlusive. The same thromobus was identified on 12/03/2017 by vascular study. However, it's not seen on 05/06/18. Patient has been on coumadin 7.5mg daily. Denies chest pain, shortness of breath, fever, chills, abd pain, melana and hemoptysis. - Past Medical History [employer]: Yes: Other (small SDH) Cardio/Vascular: Yes: CAD, CHF, HTN, Hyperlipdemia Renal/: Yes: Renal Inusuff Infectious Disease: Yes: HIV Psych: Yes: Anxiety Endocrine: Yes: Diabetes Mellitus - Past Surgical History Past Surgical History: Yes: Breast Biopsy, Stent (coronary) - Alcohol/Substance Use Hx Alcohol Use: No - Smoking History Smoking history: Never smoked Have you smoked in the past 12 months: No Aproximately how many cigarettes per day: 0 If you are a former smoker, when did you quit?: 30YR - Social History History of Recent Travel: Yes ([place]; returned 08/27/17) Home Medications - Allergies Allergies/Adverse Reactions: Allergies Allergy/AdvReac Type Severity Reaction Status Date / Time No Known Allergies Allergy Verified 05/05/18 14:02 - Home Medications Home Medications: Ambulatory Orders Amlodipine Besylate [Norvasc -] 2.5 mg PO DAILY 07/08/17 Gabapentin 600 mg PO TID 07/08/17 Clopidogrel Bisulfate [Clopidogrel] 75 mg PO DAILY 11/03/17 Darunavir Ethanolate [Prezista -] 600 mg PO BID 11/03/17 Duloxetine HCl [Cymbalta -] 30 mg PO BID 11/03/17 Etravirine [Intelence -] 200 mg PO BID 11/03/17 Lisinopril [Prinivil] 20 mg PO DAILY 11/03/17 Metoprolol Succinate [Toprol XL -] 100 mg PO BID 11/03/17 Raltegravir [Isentress -] 400 mg PO BID 11/03/17 Ritonavir 100 mg PO BID 11/03/17 Tramadol HCl 50 mg PO TID PRN #8 tablet MDD 3 tabs 11/03/17 Warfarin Sodium [Coumadin] 7.5 mg PO ASDIR 12/03/17 Family Disease History - Family Disease History Family Disease History: Diabetes: Mother, Heart Disease: Mother Review of Systems - Review of Systems Constitutional: denies: Chills, Fever Cardiovascular: denies: Chest Pain, Palpitations, Shortness of Breath Respiratory: denies: Cough, Hemoptysis Musculoskeletal: reports: Extremity Pain Neurological: reports: Other (somewhat demented) Physical Exam Vital Signs: Vital Signs Temperature 98.4 F 05/06/18 09:30 Pulse Rate 74 05/06/18 09:30 Respiratory Rate 20 05/06/18 09:30 Blood Pressure 133/52 L 05/06/18 09:30 O2 Sat by Pulse Oximetry (%) 98 05/06/18 09:00 Constitutional: Yes: No Distress, Anxious Cardiovascular: Yes: Regular Rate and Rhythm, S1, S2 Respiratory: Yes: CTA Bilaterally Gastrointestinal: Yes: Normal Bowel Sounds, Soft Edema: No Peripheral Pulses WNL: Yes Neurological: Yes: Alert, Oriented Labs: CBC, BMP 05/06/18 12:15 05/06/18 10:59 Imaging - Results Other: Report Reviewed Assessment/Plan 67 yo AA female dCHF, CAD s/p DE w/ stent x 2, IDDM, HTN, HLD, HIV (last CD4 ~ 600), R popliteal DVT, CVA w/ RUE weakness, subdural hemorrhage in 2017 p/w R knee and L heel pain s/p mechanical fall on 04/13 now being evaluated for h/o DVT. R popliteal DVT - not found during this admission, ?repeat vascular study - previously treated w/ AC for provoked DVT (travel from [place]) for > 3 months - no indication for further AC anemia - normocytic, likely due to chronic disease (HIV, CKD) - stool guaic - transfuse 1 PRBC Hola APPLE PGY3 Visit type - Emergency Visit Emergency Visit: Yes ED Registration Date: 05/05/18 Care time: The patient presented to the Emergency Department on the above date and was hospitalized for further evaluation of their emergent condition. - New Patient This patient is new to me today: Yes Date on this admission: 05/06/18 - Critical Care Critical Care patient: No
--- NOTE | 2018-05-06 15:25 | PN ---
Progress Note, Physician History of Present Illness: comfortable - Current Medication List Current Medications: Active Medications Amlodipine Besylate (Norvasc -) 2.5 mg PO DAILY [facility] Last Admin: 05/06/18 10:48 Dose: 2.5 mg Clopidogrel Bisulfate (Plavix -) 75 mg PO DAILY [facility] Last Admin: 05/06/18 10:48 Dose: 75 mg Darunavir (Prezista -) 600 mg PO BID [facility] Last Admin: 05/06/18 10:48 Dose: 600 mg Duloxetine HCl (Cymbalta -) 30 mg PO BID [facility] Last Admin: 05/06/18 10:48 Dose: 30 mg Etravirine (Intelence -) 200 mg PO BIDPC [facility] Last Admin: 05/06/18 10:48 Dose: 200 mg Gabapentin (Neurontin -) 600 mg PO TID [facility] Last Admin: 05/06/18 13:29 Dose: Not Given Heparin Sodium (Porcine) (Heparin -) 5,000 unit SQ BID [facility] Last Admin: 05/06/18 10:48 Dose: 5,000 unit Lisinopril (Prinivil) 20 mg PO DAILY [facility] Last Admin: 05/06/18 10:48 Dose: 20 mg Metoprolol Succinate (Toprol Xl -) 100 mg PO BID [facility] Last Admin: 05/06/18 10:48 Dose: 100 mg Potassium Chloride (Potassium Chloride Oral Liquid) 40 meq PO BID [facility] Last Admin: 05/06/18 10:48 Dose: 40 meq - Objective Vital Signs: Vital Signs Temperature 98.4 F 05/06/18 14:33 Pulse Rate 89 05/06/18 14:33 Respiratory Rate 20 05/06/18 14:33 Blood Pressure 125/72 05/06/18 14:33 O2 Sat by Pulse Oximetry (%) 96 05/06/18 14:33 Constitutional: Yes: No Distress HENT: Yes: Atraumatic Neck: Yes: Supple Cardiovascular: Yes: Regular Rate and Rhythm Respiratory: Yes: CTA Bilaterally Gastrointestinal: Yes: Normal Bowel Sounds Extremities: Yes: WNL, Other (left heel wound/pressure sore) Edema: No Peripheral Pulses WNL: Yes Neurological: Yes: Alert, Oriented Labs: CBC, BMP 05/06/18 12:15 05/06/18 10:59 Problem List - Problems (1) CHF (congestive heart failure) Code(s): I50.9 - HEART FAILURE, UNSPECIFIED (2) CKD (chronic kidney disease) Code(s): N18.9 - CHRONIC KIDNEY DISEASE, UNSPECIFIED (3) Diabetes Code(s): E11.9 - TYPE 2 DIABETES MELLITUS WITHOUT COMPLICATIONS (4) HIV (human immunodeficiency virus infection) Assessment/Plan: continue home meds Code(s): Z21 - ASYMPTOMATIC HUMAN IMMUNODEFICIENCY VIRUS INFECTION STATUS (5) HTN (hypertension) Assessment/Plan: on meds stable Code(s): I10 - ESSENTIAL (PRIMARY) HYPERTENSION (6) Hyperlipidemia Code(s): E78.5 - HYPERLIPIDEMIA, UNSPECIFIED (7) Obesity Code(s): E66.9 - OBESITY, UNSPECIFIED (8) Subdural hematoma Code(s): S06.5X9A - TRAUM SUBDR HEM W LOC OF UNSP DURATION, INIT (9) Anemia Assessment/Plan: s/p prbc transfusion Code(s): D64.9 - ANEMIA, UNSPECIFIED (10) Falls Code(s): W19.XXXA - UNSPECIFIED FALL, INITIAL ENCOUNTER Assessment/Plan will get vascular consult for left heel d/w family in detail the care plan
[2018-05-06 15:38] LABS: INR 0.97 (0.83-1.09); PROTHROMBIN TIME (PATIENT) 11.5 SEC (9.7-13.0)
[2018-05-06 15:40] LABS: ACTIVATED PTT 18.6 SECONDS (25.2-36.5)
--- NOTE | 2018-05-06 18:11 | EKG ---
Test Reason : Blood Pressure : / mmHG Vent. Rate : 098 BPM Atrial Rate : 098 BPM P-R Int : 190 ms QRS Dur : 088 ms QT Int : 406 ms P-R-T Axes : 047 018 072 degrees QTc Int : 518 ms NORMAL SINUS RHYTHM POSSIBLE LEFT ATRIAL ENLARGEMENT NONSPECIFIC ST AND T WAVE ABNORMALITY PROLONGED QT ABNORMAL ECG Confirmed by MD LYNDSEY, CARMITA (2013) on 05/06/2018 6:11:11 PM Referred By: Confirmed By:CRAMITA SOLORIO MD
[2018-05-06] MEDS: ACETAMINOPHEN 500 MG TABLET (FP) PO PRN (19:35)
--- NOTE | 2018-05-06 20:38 | PN ---
Teaching Attending Note Name of Resident: Hola Cummins ATTENDING PHYSICIAN STATEMENT I saw and evaluated the patient. I reviewed the resident's note and discussed the case with the resident. I agree with the resident's findings and plan as documented. SUBJECTIVE: Patient seen and examined Review of past records reveal likely a provoked DVT after prolonged plane trip. Has been on a/c for greater than 6 months and therefore can discontinue a/c as usual therapy for provoked DVT is 3 months. Anemia likely chronic disease with CKD. Need to check stool guaics Would transfuse packed cells. OBJECTIVE: ASSESSMENT AND PLAN:
--- NOTE | 2018-05-07 02:58 | PN ---
Progress Note, Physician Chief Complaint: Pt with hazy remembrance of events. Denies chest pain or dyspnea. History of Present Illness: 67F with h/o HTN, IDDM, HLD, HIV (VL and CD4 unknown), CVA (Residual R sided weakness), subdural hematoma, CKD, CAD, CHF (borderline reduced LVEF, with ?LV noncompaction on 09/06 ECHO), DVT (08/2017) previously on Coumadin, now presenting with right knee pain and left heel pain for the pat few weeks. Patient's family at bedside state that she is bed bound since a recent stroke and fall and was rehabbing at a NH discharged 3 days prior. Since she has been home during the weekend the patient has complained of right knee pain and left heel pain. Family states they know she fell and hit her right knee at rehab a few weeks ago and has had pain since. Her right heel has argelia black since she came home but is unclear when this started or how it happened. Also of note, her medications seem to be in slight disarray as she is no longer on Coumadin but now on heparin sub q BID (apparently a prophylactic dose). - Current Medication List Current Medications: Active Medications Acetaminophen (Tylenol -) 1,000 mg PO Q6H PRN PRN Reason: PAIN LEVEL 1-5 Last Admin: 05/06/18 19:35 Dose: 1,000 mg Amlodipine Besylate (Norvasc -) 2.5 mg PO DAILY [facility] Last Admin: 05/06/18 10:48 Dose: 2.5 mg Clopidogrel Bisulfate (Plavix -) 75 mg PO DAILY [facility] Last Admin: 05/06/18 10:48 Dose: 75 mg Darunavir (Prezista -) 600 mg PO BID [facility] Last Admin: 05/06/18 22:35 Dose: 600 mg Duloxetine HCl (Cymbalta -) 30 mg PO BID [facility] Last Admin: 05/06/18 21:47 Dose: 30 mg [facility] Last Admin: 05/06/18 19:35 Dose: 200 mg Gabapentin (Neurontin -) 600 mg PO TID [facility] Last Admin: 05/06/18 21:47 Dose: 600 mg Heparin Sodium (Porcine) (Heparin -) 5,000 unit SQ BID [facility] Last Admin: 01/15/19 21:47 Dose: 5,000 unit Lisinopril (Prinivil) 20 mg PO DAILY [facility] Last Admin: 05/06/18 10:48 Dose: 20 mg Metoprolol Succinate (Toprol Xl -) 100 mg PO BID [facility] Last Admin: 05/06/18 21:47 Dose: 100 mg Potassium Chloride (Potassium Chloride Oral Liquid) 40 meq PO BID [facility] Last Admin: 05/06/18 21:47 Dose: 40 meq - Objective Vital Signs: Vital Signs Temperature 98 F 05/06/18 23:00 Pulse Rate 81 05/06/18 23:00 Respiratory Rate 20 05/06/18 23:00 Blood Pressure 124/64 05/06/18 23:00 O2 Sat by Pulse Oximetry (%) 96 05/06/18 19:00 Constitutional: Yes: No Distress Eyes: Yes: WNL HENT: Yes: WNL Neck: Yes: WNL Cardiovascular: Yes: S1, S2 Respiratory: Yes: Regular Gastrointestinal: Yes: Soft ...Rectal Exam: Yes: Deferred Genitourinary: No: Anuria Breast(s): Yes: WNL Musculoskeletal: Yes: Muscle Weakness Extremities: Yes: Other (right-sided weakness) Edema: No Peripheral Pulses WNL: Yes Integumentary: Yes: WNL Neurological: Yes: Alert, Weakness Psychiatric: Yes: Other Labs: CBC, BMP 05/06/18 12:15 05/06/18 10:59 INR, PTT INR 0.97 (0.83-1.09) 05/06/18 15:05 - ....Imaging Chest X-ray: Image Reviewed Problem List - Problems (1) Acute on chronic systolic and diastolic heart failure, NYHA class 2 Assessment/Plan: No JVD. CXR: no acute pathology. F/u BNP. On metoprolol, amlodipine, and lisinopril. BUN/Cr, electrolytes, Is and OS, daily weight. Code(s): I50.43 - ACUTE ON CHRONIC COMBINED SYSTOLIC AND DIASTOLIC HRT FAIL (2) Cerebrovascular accident (CVA) Code(s): I63.9 - CEREBRAL INFARCTION, UNSPECIFIED Qualifiers: CVA mechanism: unspecified Qualified Code(s): I63.9 - Cerebral infarction, unspecified (3) DVT (deep venous thrombosis) Assessment/Plan: hx provoked DVT; no longer on anticoagulant. Code(s): I82.409 - ACUTE EMBOLISM AND THOMBOS UNSP DEEP VN UNSP LOWER EXTREMITY (4) [place] cardiac risk >20% in next 10 years Assessment/Plan: Stress MIBI in 2013: f/u results. Consider reevaluation of coronary arteries, perhaps when pt has futher evaluation of possible noncompaction of LV. 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 On metoprolol, lisinopril, amlodipine. Code(s): I42.4 - ENDOCARDIAL FIBROELASTOSIS (6) Diabetes Code(s): E11.9 - TYPE 2 DIABETES MELLITUS WITHOUT COMPLICATIONS (7) Hyperlipidemia Assessment/Plan: LDL >180 mg/dL in 2018. Repeat profile. Start statin (LFTs WNL) Code(s): E78.5 - HYPERLIPIDEMIA, UNSPECIFIED (8) Subdural hematoma Code(s): S06.5X9A - TRAUM SUBDR HEM W LOC OF UNSP DURATION, INIT (9) HTN (hypertension) Code(s): I10 - ESSENTIAL (PRIMARY) HYPERTENSION (10) CKD (chronic kidney disease) Code(s): N18.9 - CHRONIC KIDNEY DISEASE, UNSPECIFIED (11) HIV (human immunodeficiency virus infection) Code(s): B20 - HUMAN IMMUNODEFICIENCY VIRUS [HIV] DISEASE (12) Falls Code(s): W19.XXXA - UNSPECIFIED FALL, INITIAL ENCOUNTER
[2018-05-07] MEDS: GABAPENTIN 300 MG CAPSULE (FP) PO SCH ×3 (06:14→21:23)
[2018-05-07 07:35] LABS: BASO % 1.3 % (0-2.0); EOS % 4.8 % (0-4.5); HEMATOCRIT 20.5 % (32.4-45.2); HEMOGLOBIN 7.1 GM/dL (10.7-15.3); LYMPH % 25.6 % (8-40); MCH 29.2 pg (25.7-33.7); MCHC 34.5 g/dl (32.0-36.0); MEAN CELL VOLUME 84.5 fl (80-96); NEUT % 61.3 % (42.8-82.8); PLATELET COUNT 369 K/MM3 (134-434); RBC 2.42 M/mm3 (3.60-5.2); RDW 15.9 % (11.6-15.6); WHITE BLOOD COUNT 11.9 K/mm3 (4.0-10.0)
[2018-05-07 08:16] LABS: ALBUMIN 1.8 g/dl (3.4-5.0); ALK PHOS 83 U/L (45-117); ANION GAP 8 MMOL/L (8-16); BILIRUBIN,TOTAL 0.4 mg/dL (0.2-1); BLOOD UREA NITROGEN 23 mg/dL (7-18); CALCIUM 8.3 mg/dL (8.5-10.1); CHLORIDE 105 mmol/L (98-107); CO2 24 mmol/L (21-32); CREATININE 2.2 mg/dL (0.55-1.3); GLUCOSE,RANDOM 113 mg/dL (74-106); POTASSIUM 3.6 mmol/L (3.5-5.1); SGOT/AST 19 U/L (15-37); SGPT/ALT 10 U/L (13-61); SODIUM 137 mmol/L (136-145); TOT PROT 6.3 g/dl (6.4-8.2)
--- NOTE | 2018-05-07 09:52 | PN ---
Progress Note (short form) - Note Progress Note: Pt seen and examined. She is a 67 year old female 4 ays s/p fall, with c/o pain in the right knee. Ordinarily she can ambulate many blocks, now she cannot walk or bear weight bc of pain in the right knee, moreso medially. AVSS PE Right knee looks ok, no joint effusion, not erythematous, no swelling, no bruising Limited ROM bc of pain Very tender to palpation over the knee globally, worst at the medial aspect No gross instability, limited exam but the ACL, PCL, MCL, LCL all feel to be intact and stable + intact flexion and extension, but ROM limited bc of pain Xrays Right knee show no acute fractures, no acute bony pathology. + OA Right foot show severe global foot OA, also no fractures Imp 67 year old elderly female 4 days s/p fall with a right knee sprain/ contusion. No fracture. Rec P.T. for ambulation assistance. WBAT right LE, walker Knee brace to the right knee No surgery needed
[2018-05-07] MEDS: HEPARIN NA (PORCINE) 5,000 UNITS/ML 1ML VIAL SQ SCH ×2 (10:33→21:23)
[2018-05-07] MEDS: LISINOPRIL 20 MG TABLET (FP) PO SCH (10:33)
[2018-05-07] MEDS: amLODIPine BESYLATE 2.5 MG TABLET (FP) PO SCH (10:33)
[2018-05-07] MEDS: ACETAMINOPHEN 500 MG TABLET (FP) PO PRN ×2 (10:33→17:56)
[2018-05-07] MEDS: DULoxetine HCL 30 MG CAPSULE.DR (FP) PO SCH ×2 (10:33→21:23)
[2018-05-07] MEDS: POTASSIUM CHLORIDE ORAL LIQUID 20 MEQ/15 ML PO SCH ×2 (10:33→21:23)
[2018-05-07] MEDS: CLOPIDOGREL BISULFATE 75 MG TABLET (FP) PO SCH (10:33)
[2018-05-07] MEDS: ETRAVIRINE 100 MG TABLET PO SCH ×2 (10:45→17:57)
[2018-05-07] MEDS: DARUNAVIR ETHANOLATE 600 MG TAB PO SCH ×2 (10:47→21:23)
--- NOTE | 2018-05-07 11:39 | PN ---
Progress Note, Physician History of Present Illness: 67-year-old female history of CHF, CAD status post IL and placement, IDDM, hypertension, hyperlipidemia, HIV, CVA (residual RUE weaknesS), CKD, cad, hx of subdural hematoma, recent admission to rehab and was sent home a few days ago, presents with complaint of R knee pain and L heel pain. Per family the patient had a fall on 04/13, and has been having R knee pain since then. Pt has been unable to range her knee since and unable to ambulate for several months and has been bed bound. Pt also has been having increased L heel pain patient was on coumadin for dvt but not since fall admitted as per pmd to evaluate when to start back coumadin PMH Suffered fall in April 2016 which caused SDH treated with craniotomy and post procedure Plavix was stopped. Ongoing medical problems CAD CVA 2015 D1 70% mLAD 40% January 15, 2013 Dr. Valladares DOLORES of proximal and mid RCA January 15, 2013 Dr. Valladares DM 2003 HIV HTN Hyperlipidemia Negative MIBI stress test July 2014 PCI DOLORES mRCA 2015 [facility] - Current Medication List Current Medications: Active Medications Acetaminophen (Tylenol -) 1,000 mg PO Q6H PRN PRN Reason: PAIN LEVEL 1-5 Last Admin: 05/07/18 10:33 Dose: 1,000 mg Amlodipine Besylate (Norvasc -) 2.5 mg PO DAILY [facility] Last Admin: 05/07/18 10:33 Dose: 2.5 mg Clopidogrel Bisulfate (Plavix -) 75 mg PO DAILY [facility] Last Admin: 05/07/18 10:33 Dose: 75 mg Darunavir (Prezista -) 600 mg PO BID [facility] Last Admin: 05/07/18 10:47 Dose: 600 mg Duloxetine HCl (Cymbalta -) 30 mg PO BID [facility] Last Admin: 05/07/18 10:33 Dose: 30 mg [facility] ([facility] -) [facility] Last Admin: 05/07/18 10:45 Dose: 200 mg Gabapentin (Neurontin -) 600 mg PO TID [facility] Last Admin: 05/07/18 06:14 Dose: 600 mg Heparin Sodium (Porcine) (Heparin -) 5,000 unit SQ BID [facility] Last Admin: 05/07/18 10:33 Dose: 5,000 unit Lisinopril (Prinivil) 20 mg PO DAILY [facility] Last Admin: 05/07/18 10:33 Dose: 20 mg Metoprolol Succinate (Toprol Xl -) 100 mg PO BID [facility] Last Admin: 05/07/18 10:33 Dose: 100 mg Potassium Chloride (Potassium Chloride Oral Liquid) 40 meq PO BID [facility] Last Admin: 05/07/18 10:33 Dose: 40 meq - Objective Vital Signs: Vital Signs Temperature 97.8 F 05/07/18 05:57 Pulse Rate 78 05/07/18 05:57 Respiratory Rate 20 05/07/18 05:57 Blood Pressure 138/64 05/07/18 05:57 O2 Sat by Pulse Oximetry (%) 96 05/07/18 03:00 Eyes: Yes: WNL, Conjunctiva Clear, EOM Intact HENT: Yes: WNL, Atraumatic, Normocephalic Neck: Yes: WNL, Supple, Trachea Midline Cardiovascular: Yes: WNL, Regular Rate and Rhythm Respiratory: Yes: WNL, Regular, CTA Bilaterally Gastrointestinal: Yes: WNL, Normal Bowel Sounds Genitourinary: Yes: WNL Musculoskeletal: Yes: WNL Extremities: Yes: WNL Edema: Yes Integumentary: Yes: WNL Neurological: Yes: WNL, Alert, Oriented ...Motor Strength: WNL Psychiatric: Yes: WNL Labs: CBC, BMP 05/07/18 06:00 05/07/18 06:00 INR, PTT INR 0.97 (0.83-1.09) 05/06/18 15:05 Problem List - Problems (1) NÉSTOR (acute kidney injury) Code(s): N17.9 - ACUTE KIDNEY FAILURE, UNSPECIFIED (2) Acute electrocardiogram changes Code(s): R94.31 - ABNORMAL ELECTROCARDIOGRAM [ECG] [EKG] (3) Acute on chronic diastolic CHF (congestive heart failure) Code(s): I50.33 - ACUTE ON CHRONIC DIASTOLIC (CONGESTIVE) HEART FAILURE (4) Acute on chronic systolic and diastolic heart failure, NYHA class 2 Code(s): I50.43 - ACUTE ON CHRONIC COMBINED SYSTOLIC AND DIASTOLIC HRT FAIL (5) Acute pulmonary edema Code(s): J81.0 - ACUTE PULMONARY EDEMA (6) BiPAP (biphasic positive airway pressure) dependence Code(s): Z99.89 - DEPENDENCE ON OTHER ENABLING MACHINES AND DEVICES (7) CHF (congestive heart failure) Code(s): I50.9 - HEART FAILURE, UNSPECIFIED (8) Cerebrovascular accident (CVA) Code(s): I63.9 - CEREBRAL INFARCTION, UNSPECIFIED Qualifiers: CVA mechanism: unspecified Qualified Code(s): I63.9 - Cerebral infarction, unspecified (9) Chest pain Code(s): R07.9 - CHEST PAIN, UNSPECIFIED Qualifiers: Chest pain type: unspecified Qualified Code(s): R07.9 - Chest pain, unspecified (10) DVT (deep venous thrombosis) Code(s): I82.409 - ACUTE EMBOLISM AND THOMBOS UNSP DEEP VN UNSP LOWER EXTREMITY (11) Fracture of proximal phalanx of right little finger Code(s): S62.616A - DISP FX OF PROXIMAL PHALANX OF RIGHT LITTLE FINGER, INIT Qualifiers: Encounter type: initial encounter Fracture type: closed Fracture alignment: nondisplaced Qualified Code(s): S62.646A - Nondisplaced fracture of proximal phalanx of right little finger, initial encounter for closed fracture (12) [place] cardiac risk >20% in next 10 years Code(s): Z91.89 - OTH PERSONAL RISK FACTORS, NOT ELSEWHERE CLASSIFIED (13) Gout Code(s): M10.9 - GOUT, UNSPECIFIED (14) H/O traumatic subdural hematoma Code(s): Z87.828 - PERSONAL HISTORY OF OTH (HEALED) PHYSICAL INJURY AND TRAUMA (15) Hypertriglyceridemia Code(s): E78.1 - PURE HYPERGLYCERIDEMIA (16) Intracranial hemorrhage Code(s): I62.9 - NONTRAUMATIC INTRACRANIAL HEMORRHAGE, UNSPECIFIED (17) Ischemic stroke Code(s): I63.9 - CEREBRAL INFARCTION, UNSPECIFIED (18) Left-sided chest wall pain Code(s): R07.89 - OTHER CHEST PAIN (19) New onset left bundle branch block (LBBB) Code(s): I44.7 - LEFT BUNDLE-BRANCH BLOCK, UNSPECIFIED (20) Pulmonary hypertension Code(s): I27.20 - PULMONARY HYPERTENSION, UNSPECIFIED (21) Stented coronary artery Code(s): Z95.5 - PRESENCE OF CORONARY ANGIOPLASTY IMPLANT AND GRAFT (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 (23) CAD (coronary artery disease) Code(s): I25.10 - ATHSCL HEART DISEASE OF [place] CORONARY ARTERY W/O ANG PCTRS (24) CKD (chronic kidney disease) Code(s): N18.9 - CHRONIC KIDNEY DISEASE, UNSPECIFIED (25) Diabetes Code(s): E11.9 - TYPE 2 DIABETES MELLITUS WITHOUT COMPLICATIONS (26) HIV (human immunodeficiency virus infection) Code(s): Z21 - ASYMPTOMATIC HUMAN IMMUNODEFICIENCY VIRUS INFECTION STATUS (27) HTN (hypertension) Code(s): I10 - ESSENTIAL (PRIMARY) HYPERTENSION (28) Hyperlipidemia Code(s): E78.5 - HYPERLIPIDEMIA, UNSPECIFIED (29) Obesity Code(s): E66.9 - OBESITY, UNSPECIFIED (30) Sleep apnea Code(s): G47.30 - SLEEP APNEA, UNSPECIFIED (31) Subdural hematoma Code(s): S06.5X9A - TRAUM SUBDR HEM W LOC OF UNSP DURATION, INIT (32) CHF exacerbation Code(s): I50.9 - HEART FAILURE, UNSPECIFIED Qualifiers: Heart failure type: unspecified Qualified Code(s): I50.9 - Heart failure, unspecified (33) Hypertensive emergency Code(s): I16.1 - HYPERTENSIVE EMERGENCY Assessment/Plan 67-year-old female history of CHF, CAD status post IL and placement, IDDM, hypertension, hyperlipidemia, HIV, CVA (residual RUE weaknesS), CKD, cad, hx of subdural hematoma, recent admission to rehab and was sent home a few days ago, presents with complaint of R knee pain and L heel pain. Per family the patient had a fall on 04/13, and has been having R knee pain since then. Pt has been unable to range her knee since and unable to ambulate for several months and has been bed bound. Pt also has been having increased L heel pain patient was on coumadin for dvt but not since fall admitted as per pmd to evaluate when to start back coumadin - Problems (1) Acute on chronic systolic and diastolic heart failure, NYHA class 2 Assessment/Plan: No JVD. CXR: no acute pathology. F/u BNP. On metoprolol, amlodipine, and lisinopril. BUN/Cr, electrolytes, Is and OS, daily weight. Code(s): I50.43 - ACUTE ON CHRONIC COMBINED SYSTOLIC AND DIASTOLIC HRT FAIL (2) Cerebrovascular accident (CVA) Code(s): I63.9 - CEREBRAL INFARCTION, UNSPECIFIED Qualifiers: CVA mechanism: unspecified Qualified Code(s): I63.9 - Cerebral infarction, unspecified (3) DVT (deep venous thrombosis) Assessment/Plan: hx provoked DVT; no longer on anticoagulant. Code(s): I82.409 - ACUTE EMBOLISM AND THOMBOS UNSP DEEP VN UNSP LOWER EXTREMITY (4) [place] cardiac risk >20% in next 10 years Assessment/Plan: Stress MIBI in 2013: f/u results. Consider reevaluation of coronary arteries, perhaps when pt has futher evaluation of possible noncompaction of LV. 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 On metoprolol, lisinopril, amlodipine. Code(s): I42.4 - ENDOCARDIAL FIBROELASTOSIS (6) Diabetes Code(s): E11.9 - TYPE 2 DIABETES MELLITUS WITHOUT COMPLICATIONS (7) Hyperlipidemia Assessment/Plan: LDL >180 mg/dL in 2018. Repeat profile. Start statin (LFTs WNL) Code(s): E78.5 - HYPERLIPIDEMIA, UNSPECIFIED (8) Subdural hematoma Code(s): S06.5X9A - TRAUM SUBDR HEM W LOC OF UNSP DURATION, INIT (9) HTN (hypertension) Code(s): I10 - ESSENTIAL (PRIMARY) HYPERTENSION (10) CKD (chronic kidney disease) Code(s): N18.9 - CHRONIC KIDNEY DISEASE, UNSPECIFIED (11) HIV (human immunodeficiency virus infection) Code(s): B20 - HUMAN IMMUNODEFICIENCY VIRUS [HIV] DISEASE (12) Falls Code(s): W19.XXXA - UNSPECIFIED FALL, INITIAL ENCOUNTER
--- NOTE | 2018-05-07 15:50 | CONSULT ---
- Consultation REQUESTING PROVIDER: CONSULT REQUEST: We have been asked to surgically evaluate this patient for ( specify). PCP:Steph Portillo HISTORY OF PRESENT ILLNESS: 67 y/o F w/ PMHx CHF, CAD status post OR, IDDM, hypertension, hyperlipidemia, HIV, CVA (residual RUE weaknesS), CKD, hx of subdural hematoma, now a/w R knee/L heel pain. Vascular consulted for L heel ulcer. Pt is a poor historian, majority of HPI taken from chart. Per pt, has not walked for months reports she has too much pain in her legs and knees. Unsure when ulcer began, reports significant pain to palpation during evaluation and dressing changes. Reports she lives home with her family who care for her. Cannot remember if she has seen a vascular surgeon in the past. PMHx: as above PSHx: Breast Biopsy, Stent (coronary) Home Medications Medication Instructions Recorded Amlodipine Besylate [Norvasc -] 2.5 mg PO DAILY 07/08/17 Gabapentin 600 mg PO TID 07/08/17 Clopidogrel Bisulfate [Clopidogrel] 75 mg PO DAILY 11/03/17 Darunavir Ethanolate [Prezista -] 600 mg PO BID 11/03/17 Duloxetine HCl [Cymbalta -] 30 mg PO BID 11/03/17 Etravirine [Intelence -] 200 mg PO BID 11/03/17 Lisinopril [Prinivil] 20 mg PO DAILY 11/03/17 Metoprolol Succinate [Toprol XL -] 100 mg PO BID 11/03/17 Raltegravir [Isentress -] 400 mg PO BID 11/03/17 Ritonavir 100 mg PO BID 11/03/17 Tramadol HCl 50 mg PO TID PRN #8 tablet MDD 3 11/03/17 tabs Warfarin Sodium [Coumadin] 7.5 mg PO ASDIR 12/03/17 Allergies Allergy/AdvReac Type Severity Reaction Status Date / Time No Known Allergies Allergy Verified 05/05/18 14:02 REVIEW OF SYSTEMS: CONSTITUTIONAL: Absent: fever, chills CARDIOVASCULAR: Absent: chest pain, syncope RESPIRATORY: Absent: cough, shortness of breath PHYSICAL EXAM: GENERAL: Awake, alert, and fully oriented, in no acute distress. HEAD: Normal with no signs of trauma. LOWER EXTREMITIES: L heel with large eschar medially (approx 5x4cm). Limited exam due to pain. Eschar appears to be completely intact, unable to express any purulent drainage from beneath eschar. No erythema. ++ ttp Vasc: 2+ b/l fem pulses, unable to appreciate pop/pt/dp pulses. B/L feet warm, cap refill intact. Vital Signs Temperature 98.0 F 05/07/18 14:00 Pulse Rate 80 05/07/18 14:00 Respiratory Rate 20 05/07/18 14:00 Blood Pressure 128/74 05/07/18 14:00 O2 Sat by Pulse Oximetry (%) 96 05/07/18 03:00 Lab Results WBC 11.9 K/mm3 (4.0-10.0) H 05/07/18 06:00 RBC 2.42 M/mm3 (3.60-5.2) L 05/07/18 06:00 Hgb 7.1 GM/dL (10.7-15.3) L 05/07/18 06:00 Hct 20.5 % (32.4-45.2) L 05/07/18 06:00 MCV 84.5 fl (80-96) 05/07/18 06:00 MCHC 34.5 g/dl (32.0-36.0) 05/07/18 06:00 RDW 15.9 % (11.6-15.6) H 05/07/18 06:00 Plt Count 369 K/MM3 (134-434) 05/07/18 06:00 Sodium 137 mmol/L (136-145) 05/07/18 06:00 Potassium 3.6 mmol/L (3.5-5.1) 05/07/18 06:00 Chloride 105 mmol/L (98-107) 05/07/18 06:00 Carbon Dioxide 24 mmol/L (21-32) 05/07/18 06:00 Anion Gap 8 MMOL/L (8-16) 05/07/18 06:00 BUN 23 mg/dL (7-18) H 05/07/18 06:00 Creatinine 2.2 mg/dL (0.55-1.3) H 05/07/18 06:00 Random Glucose 113 mg/dL (74-106) H 05/07/18 06:00 Calcium 8.3 mg/dL (8.5-10.1) L 05/07/18 06:00 Blood Type A POSITIVE 05/06/18 20:00 Antibody Screen Negative 05/06/18 20:00 INR 0.97 (0.83-1.09) 05/06/18 15:05 Venous Duplex (05/06/18): No dvt lle, no dvt rle Foot xray: (05/06/18): 2 views of the left foot reveal loss of bony density with extensive arthritic changes involving the toes as well as the tarsal bones. There is no sign of fracture of bone destruction. The toes are slightly angulated with arthritic findings. A destructive process is not appreciated. There are some vascular calcifications. If one is concerned about osteomyelitis , three phase bone scan or MR may be of help. A/P: 67 y/o F w/ PMHx CHF, CAD status post OR, IDDM, hypertension, hyperlipidemia, HIV, CVA (residual RUE weaknesS), CKD, hx of subdural hematoma, now a/w R knee/L heel pain. Vascular consulted for L heel ulcer. L heel ulcer with stable eschar, no overt clinical signs of infection, no osteo on xray. Pt afebrile, leukocytosis increasing (currently 11.9k), h/h downtrending (currently 7.1/20.5). Pedal pulses not appreciated on exam -Arterial duplex ordered -Betadine solution to left heel eschar -Offloading to heel at all times -Will f/u above d/w attending Dr Shen
[2018-05-07] MEDS ORDERED: FLU VACCINE QUAD 60 MCG/0.5 ML (MDV 18-19) IM ONE (16:00)
[2018-05-07] MEDS ORDERED: PNEUMOC 13-VAL CONJ-DIP CRM/PF 0.5 ML DISP.SYRIN IM ONE (16:00)
[2018-05-07] MEDS ORDERED: POVIDONE-IODINE 10% SOLN 118 ML BOTTLE TP ONE (16:19)
--- NOTE | 2018-05-07 17:11 | PN ---
Progress Note, Physician - Current Medication List Current Medications: Active Medications Acetaminophen (Tylenol -) 1,000 mg PO Q6H PRN PRN Reason: PAIN LEVEL 1-5 Last Admin: 05/07/18 10:33 Dose: 1,000 mg Amlodipine Besylate (Norvasc -) 2.5 mg PO DAILY [facility] Last Admin: 05/07/18 10:33 Dose: 2.5 mg Clopidogrel Bisulfate (Plavix -) 75 mg PO DAILY [facility] Last Admin: 05/07/18 10:33 Dose: 75 mg Darunavir (Prezista -) 600 mg PO BID [facility] Last Admin: 05/07/18 10:47 Dose: 600 mg Duloxetine HCl (Cymbalta -) 30 mg PO BID [facility] Last Admin: 05/07/18 10:33 Dose: 30 [facility] Admin: 05/07/18 10:45 Dose: 200 mg Gabapentin (Neurontin -) 600 mg PO TID [facility] Last Admin: 05/07/18 13:48 Dose: 600 mg Heparin Sodium (Porcine) (Heparin -) 5,000 unit SQ BID [facility] Last Admin: 05/07/18 10:33 Dose: 5,000 unit Lisinopril (Prinivil) 20 mg PO DAILY [facility] Last Admin: 05/07/18 10:33 Dose: 20 mg Metoprolol Succinate (Toprol Xl -) 100 mg PO BID [facility] Last Admin: 05/07/18 10:33 Dose: 100 mg Potassium Chloride (Potassium Chloride Oral Liquid) 40 meq PO BID [facility] Last Admin: 05/07/18 10:33 Dose: 40 meq - Objective Vital Signs: Vital Signs Temperature 98.0 F 05/07/18 14:00 Pulse Rate 80 05/07/18 14:00 Respiratory Rate 20 05/07/18 14:00 Blood Pressure 128/74 05/07/18 14:00 O2 Sat by Pulse Oximetry (%) 98 05/07/18 11:00 Constitutional: Yes: No Distress HENT: Yes: Atraumatic Neck: Yes: Supple Cardiovascular: Yes: Regular Rate and Rhythm Respiratory: Yes: CTA Bilaterally Gastrointestinal: Yes: Normal Bowel Sounds Extremities: Yes: Other (left heel sore) Edema: No Peripheral Pulses WNL: Yes Labs: CBC, BMP 05/07/18 06:00 05/07/18 06:00 INR, PTT INR 0.97 (0.83-1.09) 05/06/18 15:05 Problem List - Problems (1) CHF (congestive heart failure) Assessment/Plan: continue home meds Code(s): I50.9 - HEART FAILURE, UNSPECIFIED (2) CKD (chronic kidney disease) Code(s): N18.9 - CHRONIC KIDNEY DISEASE, UNSPECIFIED (3) Diabetes Code(s): E11.9 - TYPE 2 DIABETES MELLITUS WITHOUT COMPLICATIONS (4) HIV (human immunodeficiency virus infection) Assessment/Plan: continue home meds Code(s): Z21 - ASYMPTOMATIC HUMAN IMMUNODEFICIENCY VIRUS INFECTION STATUS (5) HTN (hypertension) Assessment/Plan: on meds stable Code(s): I10 - ESSENTIAL (PRIMARY) HYPERTENSION (6) Hyperlipidemia Code(s): E78.5 - HYPERLIPIDEMIA, UNSPECIFIED (7) Obesity Code(s): E66.9 - OBESITY, UNSPECIFIED (8) Subdural hematoma Code(s): S06.5X9A - TRAUM SUBDR HEM W LOC OF UNSP DURATION, INIT (9) Anemia Assessment/Plan: s/p prbc transfusion Code(s): D64.9 - ANEMIA, UNSPECIFIED (10) Falls Assessment/Plan: pt eval Code(s): W19.XXXA - UNSPECIFIED FALL, INITIAL ENCOUNTER (11) C. difficile colitis Assessment/Plan: will start her on med Code(s): A04.72 - ENTEROCOLITIS D/T CLOSTRIDIUM DIFFICILE, NOT SPCF RECUR Assessment/Plan d/w dr berman...no need of AC at this point
[2018-05-07 19:20] VITALS: BMI 24.4
[2018-05-07] MEDS ORDERED: PT OWN MED DRAWER 7, Y5N ONE (21:10)
[2018-05-08] MEDS ORDERED: PT OWN MED DRAWER 7, Y5N ONE ×4 (00:02→22:11)
[2018-05-08] MEDS: VANCOMYCIN 250 MG/5 ML ORAL SOLUTION PO SCH ×4 (02:10→17:19)
[2018-05-08] MEDS: GABAPENTIN 300 MG CAPSULE (FP) PO SCH ×3 (06:09→22:21)
--- NOTE | 2018-05-08 09:41 | PN ---
Progress Note (short form) - Note Progress Note: Pt seen and examined. She has a right knee sprain/contusion. No change. Still c/ o pain with motion. Rec: P.T. for ROM exercises and ambulation, WBAT, DC to SNF may be required, ice to right knee, brace may be necessary
[2018-05-08] MEDS: ETRAVIRINE 100 MG TABLET PO SCH ×2 (10:37→18:05)
[2018-05-08] MEDS: DULoxetine HCL 30 MG CAPSULE.DR (FP) PO SCH ×2 (10:38→22:22)
[2018-05-08] MEDS: POTASSIUM CHLORIDE ORAL LIQUID 20 MEQ/15 ML PO SCH ×2 (10:38→22:21)
[2018-05-08] MEDS: amLODIPine BESYLATE 2.5 MG TABLET (FP) PO SCH (10:38)
[2018-05-08] MEDS: DARUNAVIR ETHANOLATE 600 MG TAB PO SCH ×2 (10:38→22:21)
[2018-05-08] MEDS: LISINOPRIL 20 MG TABLET (FP) PO SCH (10:38)
[2018-05-08] MEDS: CLOPIDOGREL BISULFATE 75 MG TABLET (FP) PO SCH (10:38)
[2018-05-08] MEDS: HEPARIN NA (PORCINE) 5,000 UNITS/ML 1ML VIAL SQ SCH ×2 (10:39→22:20)
--- NOTE | 2018-05-08 11:29 | CON.ID ---
Consult - History of Present Illness History of Present Illness: 67 y.o. female with PMH of HIV on HAART, IDDM, CVA, SDH s/p craniotomy 2 yrs ago , CKD, DVT, HTN, CHF, CAD [place]/stents not on anticoagulation presented for c/o Rt knee and Lt heel pain. Pt had been in rehab and discharged home 3 day [employer]. History given of a fall on 04/13/18 and development of Rt knee pain which has persisted. Imaging without evidence of fracture or bone destruction. Pt also has a Lt heel ulcer with eschar which is painful during examination. She was noted to have low grade fever of 100F and elevation of wbc yesterday. As per RN she was having multiple, foul-smelling loose stools yesterday. C.diff Ag +. Currently patient is alert but is a poor historian. Denies abdominal pain at this time. 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: Other (small SDH) Cardio/Vascular: Yes: CAD, CHF, HTN, Hyperlipdemia Renal/: Yes: Renal Inusuff ...: No Infectious Disease: Yes: HIV Psych: Yes: Anxiety Endocrine: Yes: Diabetes Mellitus - Past Surgical History Past Surgical History: Yes: Breast Biopsy, Stent (coronary) - Alcohol/Substance Use Hx Alcohol Use: No - Smoking History Smoking history: Never smoked Have you smoked in the past 12 months: No Aproximately how many cigarettes per day: 0 If you are a former smoker, when did you quit?: 30YR - Social History History of Recent Travel: Yes ([place]; returned 08/27/17) Home Medications - Allergies Allergies/Adverse Reactions: Allergies Allergy/AdvReac Type Severity Reaction Status Date / Time No Known Allergies Allergy Verified 05/05/18 14:02 - Home Medications Home Medications: Ambulatory Orders Amlodipine Besylate [Norvasc -] 2.5 mg PO DAILY 07/08/17 Gabapentin 600 mg PO TID 07/08/17 Clopidogrel Bisulfate [Clopidogrel] 75 mg PO DAILY 11/03/17 Darunavir Ethanolate [Prezista -] 600 mg PO BID 11/03/17 Duloxetine HCl [Cymbalta -] 30 mg PO BID 11/03/17 Etravirine [Intelence -] 200 mg PO BID 11/03/17 Lisinopril [Prinivil] 20 mg PO DAILY 11/03/17 Metoprolol Succinate [Toprol XL -] 100 mg PO BID 11/03/17 Raltegravir [Isentress] 400 mg PO BID 11/03/17 Ritonavir 100 mg PO BID 11/03/17 Tramadol HCl 50 mg PO TID PRN #8 tablet MDD 3 tabs 11/03/17 Warfarin Sodium [Coumadin] 7.5 mg PO ASDIR 12/03/17 Family Disease History - Family Disease History Family Disease History: Diabetes: Mother, Heart Disease: Mother Review of Systems - Review of Systems Constitutional: reports: Lethargy (mildly but responsive and no distress) Eyes: reports: No Symptoms HENT: reports: No Symptoms Cardiovascular: reports: No Symptoms Respiratory: reports: No Symptoms Gastrointestinal: reports: No Symptoms Genitourinary: reports: No Symptoms Musculoskeletal: reports: Extremity Pain (Lt heel) Integumentary: reports: No Symptoms Neurological: reports: Weakness Physical Exam Vital Signs: Vital Signs Temperature 98.0 F 05/08/18 10:32 Pulse Rate 84 05/08/18 10:32 Respiratory Rate 18 05/08/18 10:32 Blood Pressure 154/81 05/08/18 10:32 O2 Sat by Pulse Oximetry (%) 98 05/08/18 03:00 Constitutional: Yes: No Distress Eyes: Yes: Conjunctiva Clear HENT: Yes: Atraumatic Neck: Yes: Supple Cardiovascular: Yes: Regular Rate and Rhythm Respiratory: Yes: CTA Bilaterally Gastrointestinal: Yes: Normal Bowel Sounds, Soft Renal/: Yes: WNL Musculoskeletal: Yes: WNL Integumentary: Yes: Other (Lt heel black eschar with mild surrounding erythema/ no drainage, +tenderness) Neurological: Yes: Alert Labs: CBC, BMP 05/07/18 06:00 05/07/18 06:00 Microbiology 05/07/18 12:00 Stool Clostridium difficile Antigen ([facility]) - Final 05/07/18 12:00 Stool Clostridium difficile Toxin Assay - Final Imaging - Results X-ray: Report Reviewed Problem List - Problems (1) Anemia Code(s): D64.9 - ANEMIA, UNSPECIFIED (2) C. difficile colitis Code(s): A04.72 - ENTEROCOLITIS D/T CLOSTRIDIUM DIFFICILE, NOT SPCF RECUR (3) Falls Code(s): W19.XXXA - UNSPECIFIED FALL, INITIAL ENCOUNTER (4) NÉSTOR (acute kidney injury) Code(s): N17.9 - ACUTE KIDNEY FAILURE, UNSPECIFIED (5) DVT (deep venous thrombosis) Code(s): I82.409 - ACUTE EMBOLISM AND THOMBOS UNSP DEEP VN UNSP LOWER EXTREMITY (6) H/O traumatic subdural hematoma Code(s): Z87.828 - PERSONAL HISTORY OF OTH (HEALED) PHYSICAL INJURY AND TRAUMA (7) Stented coronary artery Code(s): Z95.5 - PRESENCE OF CORONARY ANGIOPLASTY IMPLANT AND GRAFT (8) CKD (chronic kidney disease) Code(s): N18.9 - CHRONIC KIDNEY DISEASE, UNSPECIFIED (9) Diabetes Code(s): E11.9 - TYPE 2 DIABETES MELLITUS WITHOUT COMPLICATIONS (10) HIV (human immunodeficiency virus infection) Code(s): Z21 - ASYMPTOMATIC HUMAN IMMUNODEFICIENCY VIRUS INFECTION STATUS (11) Subdural hematoma Code(s): S06.5X9A - TRAUM SUBDR HEM W LOC OF UNSP DURATION, INIT Assessment/Plan 67 y.o. female with PMH of HIV on Darunavir/Raltegravir/Etravirine/Ritonavir ( unknown CD4/HIV VL), IDDM, CVA, SDH s/p craniotomy, CKD, CAD, [place] s/p stent, CHF , DVT presenting with Rt knee pain s/p fall and Lt heel pain noted to have loose BMs yesterday with low grade fever and leukocytosis C. diff Colitis HIV Rt knee pain s/p Fall - no fracture on XRay/ neg DVT Lt heel ulcer/eschar Anemia s/p transfusion NÉSTOR on CKD IDDM Hx of CVA Hx of DVT -- continue Vancomycin po for now -- monitor wbc trend, temperatures -- continue antiretroviral meds, f/u CD4/HIV viral load -- Vascular evaluation Will follow Thank you
--- NOTE | 2018-05-08 12:57 | DS ---
Physical Examination Vital Signs: Vital Signs Temperature 98.0 F 05/08/18 10:32 Pulse Rate 84 05/08/18 10:32 Respiratory Rate 18 05/08/18 10:32 Blood Pressure 154/81 05/08/18 10:32 O2 Sat by Pulse Oximetry (%) 98 05/08/18 03:00 Labs: CBC, BMP 05/07/18 06:00 05/07/18 06:00 Discharge Summary Reason For Visit: SUBTHERAPEUTIC ANTICOGULATION/HYPOKALEMIA Current Active Problems Anemia (Acute) C. difficile colitis (Acute) Falls (Acute) Inadequate anticoagulation (Acute) Condition: Stable - Instructions Diet, Activity, Other Instructions: follow up with primary physician for cdiff Referrals: Berry Julio MD [Primary Care Provider] - - Home Medications Comprehensive Discharge Medication List: Ambulatory Orders Amlodipine Besylate [Norvasc -] 2.5 mg PO DAILY 07/08/17 Gabapentin 600 mg PO TID 07/08/17 Clopidogrel Bisulfate [Clopidogrel] 75 mg PO DAILY 11/03/17 Darunavir Ethanolate [Prezista -] 600 mg PO BID 11/03/17 Duloxetine HCl [Cymbalta -] 30 mg PO BID 11/03/17 Etravirine [Intelence -] 200 mg PO BID 11/03/17 Lisinopril [Prinivil] 20 mg PO DAILY 11/03/17 Metoprolol Succinate [Toprol XL -] 100 mg PO BID 11/03/17 Raltegravir [Isentress] 400 mg PO BID 11/03/17 Ritonavir 100 mg PO BID 11/03/17 Tramadol HCl 50 mg PO TID PRN #8 tablet MDD 3 tabs 11/03/17 Warfarin Sodium [Coumadin] 7.5 mg PO ASDIR 12/03/17 Vancomycin Oral Solution 125 mg PO Q6HPO 7 Days #1000 ml 05/08/18 dc home fu pmd 1 week
[2018-05-08] MEDS: ACETAMINOPHEN 500 MG TABLET (FP) PO PRN (13:30)
--- NOTE | 2018-05-08 13:59 | PN ---
Progress Note (short form) - Note Progress Note: Surgery 67 y/o F w significant PMHx being followed for left heel ulcer seen at the bedside. Patient resting comfortably. Vital Signs Temp 97.8 F 05/08/18 13:41 Pulse 80 05/08/18 13:41 Resp 18 05/08/18 10:32 BP 156/82 05/08/18 13:41 Pulse Ox 98 05/08/18 03:00 PE: Resting comfortably, NAD unlabored resp on RA L heel ulcer with stable eschar, with surrounding tissue intact, no bogginess or fluctuance. mild odor noted. no overt clinical signs of infection, Right heel with several areas of stage 1 Pressure ulcer-early breakdown, b/l heel pads in place. b/l Feet warm and well perfused with Palpable +1 pedal pulses b/ l. Arterial duplex LE: Atherosclerotic findings with abnormal flow within posterior tibial arteries, no occlusion or hemodynamically significant stenosis Problem List - Problems (1) CAD (coronary artery disease) Assessment/Plan: 67 yo with significant PMHX and left heel ulcer with no indication for vascular surgery. Heel ulcer stable eschar. 1) Continue Betadine solution to left heel eschar 2) Offloading to heels at all times 3) ABX per ID 4) Follow up as out patient with Dr Shen in wound care clinic. Evaluation and plan discussed with Dr Shen Code(s): I25.10 - ATHSCL HEART DISEASE OF [place] CORONARY ARTERY W/O ANG PCTRS
--- NOTE | 2018-05-08 16:15 | PN ---
Progress Note, Physician Chief Complaint: Pt is crying; says she hurts in lower abdominal/vaginal area (has diarrhea, with reddened, tender skin in perineal area). Earlier, RN says pt was crying; when asked why, she said she wanted her daughter. History of Present Illness: 67 black woman with h/o HTN, IDDM, HLD, HIV (VL and CD4 unknown), CVA (Residual R sided weakness), subdural hematoma, CKD, CAD, CHF (borderline reduced LVEF, with ?LV noncompaction on 09/06 ECHO), DVT (08/2017) previously on Coumadin, now presenting with right knee pain and left heel pain for the pat few weeks. Patient's family at bedside state that she is bed bound since a recent stroke and fall and was rehabbing at a NH discharged 3 days prior. Since she has been home during the weekend the patient has complained of right knee pain and left heel pain. Family states they know she fell and hit her right knee at rehab a few weeks ago and has had pain since. Her right heel has argelia black since she came home but is unclear when this started or how it happened. Also of note, her medications seem to be in slight disarray as she is no longer on Coumadin but now on heparin sub q BID (apparently a prophylactic dose). - Current Medication List Current Medications: Active Medications Acetaminophen (Tylenol -) 1,000 mg PO Q6H PRN PRN Reason: PAIN LEVEL 1-5 Last Admin: 05/08/18 13:30 Dose: 1,000 mg Amlodipine Besylate (Norvasc -) 2.5 mg PO DAILY [facility] Last Admin: 05/08/18 10:38 Dose: 2.5 mg Clopidogrel Bisulfate (Plavix -) 75 mg PO DAILY [facility] Last Admin: 05/08/18 10:38 Dose: 75 mg Darunavir (Prezista -) 600 mg PO BID [facility] Last Admin: 05/08/18 10:38 Dose: 600 mg Duloxetine HCl (Cymbalta -) 30 mg PO BID [facility] Last Admin: 05/08/18 10:38 Dose: 30 mg Etravirine (Intelence -) 200 mg PO BIDPC [facility] Last Admin: 05/08/18 10:37 Dose: 200 mg Gabapentin (Neurontin -) 600 mg PO TID [facility] Last Admin: 05/08/18 13:30 Dose: 600 mg Heparin Sodium (Porcine) (Heparin -) 5,000 unit SQ BID [facility] Last Admin: 05/08/18 10:39 Dose: 5,000 unit Lisinopril (Prinivil) 20 mg PO DAILY [facility] Last Admin: 05/08/18 10:38 Dose: 20 mg Metoprolol Succinate (Toprol Xl -) 100 mg PO BID [facility] Last Admin: 05/08/18 10:38 Dose: 100 mg Potassium Chloride (Potassium Chloride Oral Liquid) 40 meq PO BID [facility] Last Admin: 05/08/18 10:38 Dose: 40 meq Vancomycin HCl (Vancomycin Oral Solution) 125 mg PO Q6HPO [facility] Last Admin: 05/08/18 11:12 Dose: 125 mg - Objective Vital Signs: Vital Signs Temperature 97.8 F 05/08/18 13:41 Pulse Rate 80 05/08/18 13:41 Respiratory Rate 18 05/08/18 10:32 Blood Pressure 156/82 05/08/18 13:41 O2 Sat by Pulse Oximetry (%) 98 05/08/18 03:00 Labs: CBC, BMP 05/07/18 06:00 05/07/18 06:00 INR, PTT INR 0.97 (0.83-1.09) 05/06/18 15:05 Problem List - Problems (1) Acute on chronic systolic and diastolic heart failure, NYHA class 2 Assessment/Plan: No JVD. CXR: no acute pathology. F/u BNP. On metoprolol, amlodipine, and lisinopril. BUN/Cr, electrolytes, Is and OS, daily weight. 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 (6) Diabetes Code(s): E11.9 - TYPE 2 DIABETES MELLITUS WITHOUT COMPLICATIONS (7) Hyperlipidemia Code(s): E78.5 - HYPERLIPIDEMIA, UNSPECIFIED (8) Subdural hematoma Code(s): S06.5X9A - TRAUM SUBDR HEM W LOC OF UNSP DURATION, INIT (9) HTN (hypertension) Code(s): I10 - ESSENTIAL (PRIMARY) HYPERTENSION (10) CKD (chronic kidney disease) Code(s): N18.9 - CHRONIC KIDNEY DISEASE, UNSPECIFIED (11) HIV (human immunodeficiency virus infection) Code(s): B20 - HUMAN IMMUNODEFICIENCY VIRUS [HIV] DISEASE (12) Falls Code(s): W19.XXXA - UNSPECIFIED FALL, INITIAL ENCOUNTER (13) Hypokalemia Assessment/Plan: treated (level presently 3.6); f/u Mg level, and keep 2.0-2.4. Code(s): E87.6 - HYPOKALEMIA
--- NOTE | 2018-05-08 17:03 | PN ---
Progress Note, Physician - Current Medication List Current Medications: Active Medications Acetaminophen (Tylenol -) 1,000 mg PO Q6H PRN PRN Reason: PAIN LEVEL 1-5 Last Admin: 05/08/18 13:30 Dose: 1,000 mg Amlodipine Besylate (Norvasc -) 2.5 mg PO DAILY [facility] Last Admin: 05/08/18 10:38 Dose: 2.5 mg Clopidogrel Bisulfate (Plavix -) 75 mg PO DAILY [facility] Last Admin: 05/08/18 10:38 Dose: 75 mg Darunavir (Prezista -) 600 mg PO BID [facility] Last Admin: 05/08/18 10:38 Dose: 600 mg Duloxetine HCl (Cymbalta -) 30 mg PO BID [facility] Last Admin: 05/08/18 10:38 Dose: 30 mg Etravirine (Intelence -) 200 mg PO BIDPC [facility] Last Admin: 05/08/18 10:37 Dose: 200 mg Gabapentin (Neurontin -) 600 mg PO TID [facility] Last Admin: 05/08/18 13:30 Dose: 600 mg Heparin Sodium (Porcine) (Heparin -) 5,000 unit SQ BID [facility] Last Admin: 05/08/18 10:39 Dose: 5,000 unit Lisinopril (Prinivil) 20 mg PO DAILY [facility] Last Admin: 05/08/18 10:38 Dose: 20 mg Metoprolol Succinate (Toprol Xl -) 100 mg PO BID [facility] Last Admin: 05/08/18 10:38 Dose: 100 mg Potassium Chloride (Potassium Chloride Oral Liquid) 40 meq PO BID [facility] Last Admin: 05/08/18 10:38 Dose: 40 meq Vancomycin HCl (Vancomycin Oral Solution) 125 mg PO Q6HPO [facility] Last Admin: 05/08/18 11:12 Dose: 125 mg - Objective Vital Signs: Vital Signs Temperature 97.8 F 05/08/18 13:41 Pulse Rate 80 05/08/18 13:41 Respiratory Rate 18 05/08/18 10:32 Blood Pressure 156/82 05/08/18 13:41 O2 Sat by Pulse Oximetry (%) 98 05/08/18 03:00 Constitutional: Yes: No Distress HENT: Yes: Atraumatic Neck: Yes: Supple Cardiovascular: Yes: Regular Rate and Rhythm Respiratory: Yes: CTA Bilaterally Gastrointestinal: Yes: Normal Bowel Sounds Extremities: Yes: WNL Edema: No Peripheral Pulses WNL: Yes Neurological: Yes: Alert, Oriented Labs: CBC, BMP 05/07/18 06:00 05/07/18 06:00 INR, PTT INR 0.97 (0.83-1.09) 05/06/18 15:05 Problem List - Problems (1) CHF (congestive heart failure) Code(s): I50.9 - HEART FAILURE, UNSPECIFIED (2) CKD (chronic kidney disease) Code(s): N18.9 - CHRONIC KIDNEY DISEASE, UNSPECIFIED (3) Diabetes Code(s): E11.9 - TYPE 2 DIABETES MELLITUS WITHOUT COMPLICATIONS (4) HIV (human immunodeficiency virus infection) Code(s): Z21 - ASYMPTOMATIC HUMAN IMMUNODEFICIENCY VIRUS INFECTION STATUS (5) HTN (hypertension) Code(s): I10 - ESSENTIAL (PRIMARY) HYPERTENSION (6) Hyperlipidemia Code(s): E78.5 - HYPERLIPIDEMIA, UNSPECIFIED (7) Obesity Code(s): E66.9 - OBESITY, UNSPECIFIED (8) Subdural hematoma Code(s): S06.5X9A - TRAUM SUBDR HEM W LOC OF UNSP DURATION, INIT (9) Anemia Assessment/Plan: s/p prbc transfusion h/h improved will fu cbc today Code(s): D64.9 - ANEMIA, UNSPECIFIED (10) C. difficile colitis Assessment/Plan: on po vanco Code(s): A04.72 - ENTEROCOLITIS D/T CLOSTRIDIUM DIFFICILE, NOT SPCF RECUR (11) Hypokalemia Assessment/Plan: on supplement Code(s): E87.6 - HYPOKALEMIA Assessment/Plan h/h stable
[2018-05-08 18:14] VITALS: TEMP 98.2
[2018-05-08 18:34] LABS: BASO % 1.2 % (0-2.0); EOS % 4.2 % (0-4.5); HEMATOCRIT 33.3 % (32.4-45.2); HEMOGLOBIN 11.5 GM/dL (10.7-15.3); LYMPH % 22.7 % (8-40); MCH 28.3 pg (25.7-33.7); MCHC 34.5 g/dl (32.0-36.0); MEAN CELL VOLUME 82.1 fl (80-96); MEAN PLT VOLUME 7.6 fl (7.5-11.1); MONO % 7.4 % (3.8-10.2); NEUT % 64.5 % (42.8-82.8); PLATELET COUNT 383 K/MM3 (134-434); RBC 4.06 M/mm3 (3.60-5.2); RDW 16.2 % (11.6-15.6); WHITE BLOOD COUNT 7.4 K/mm3 (4.0-10.0)
[2018-05-08 19:31] LABS: ALBUMIN 2.2 g/dl (3.4-5.0); ALK PHOS 96 U/L (45-117); ANION GAP 8 MMOL/L (8-16); BILIRUBIN,TOTAL 0.4 mg/dL (0.2-1); BLOOD UREA NITROGEN 21 mg/dL (7-18); CALCIUM 8.7 mg/dL (8.5-10.1); CHLORIDE 105 mmol/L (98-107); CO2 22 mmol/L (21-32); CREATININE 2.1 mg/dL (0.55-1.3); GLUCOSE,RANDOM 138 mg/dL (74-106); MAGNESIUM 1.3 mg/dL (1.8-2.4); N-TERMINAL BNP 7904.2 pg/ml (5-125); POTASSIUM 5.4 mmol/L (3.5-5.1); SGOT/AST 20 U/L (15-37); SGPT/ALT 11 U/L (13-61); SODIUM 136 mmol/L (136-145); TOT PROT 7.4 g/dl (6.4-8.2)
[2018-05-09] MEDS: VANCOMYCIN 250 MG/5 ML ORAL SOLUTION PO SCH ×3 (00:35→13:04)
[2018-05-09] MEDS: GABAPENTIN 300 MG CAPSULE (FP) PO SCH ×2 (05:32→13:04)
[2018-05-09 07:47] LABS: BASO % 1.2 % (0-2.0); EOS % 5.1 % (0-4.5); HEMATOCRIT 31.9 % (32.4-45.2); HEMOGLOBIN 10.9 GM/dL (10.7-15.3); LYMPH % 22.7 % (8-40); MCH 28.3 pg (25.7-33.7); MCHC 34.1 g/dl (32.0-36.0); MEAN PLT VOLUME 7.2 fl (7.5-11.1); MONO % 7.3 % (3.8-10.2); NEUT % 63.7 % (42.8-82.8); PLATELET COUNT 381 K/MM3 (134-434); RBC 3.85 M/mm3 (3.60-5.2); RDW 16.7 % (11.6-15.6); WHITE BLOOD COUNT 6.4 K/mm3 (4.0-10.0)
[2018-05-09 09:21] LABS: MAGNESIUM 1.3 mg/dL (1.8-2.4)
[2018-05-09] MEDS: ETRAVIRINE 100 MG TABLET PO SCH (10:27)
[2018-05-09] MEDS: HEPARIN NA (PORCINE) 5,000 UNITS/ML 1ML VIAL SQ SCH (10:27)
[2018-05-09] MEDS: DARUNAVIR ETHANOLATE 600 MG TAB PO SCH (10:27)
[2018-05-09] MEDS: LISINOPRIL 20 MG TABLET (FP) PO SCH (10:28)
[2018-05-09] MEDS: POTASSIUM CHLORIDE ORAL LIQUID 20 MEQ/15 ML PO SCH (10:28)
[2018-05-09] MEDS: DULoxetine HCL 30 MG CAPSULE.DR (FP) PO SCH (10:28)
[2018-05-09] MEDS: amLODIPine BESYLATE 2.5 MG TABLET (FP) PO SCH (10:28)
[2018-05-09] MEDS: CLOPIDOGREL BISULFATE 75 MG TABLET (FP) PO SCH (10:28)
--- NOTE | 2018-05-09 12:02 | PN ---
Progress Note, Physician History of Present Illness: patient groaning still having dirrhoea - Current Medication List Current Medications: Active Medications Acetaminophen (Tylenol -) 1,000 mg PO Q6H PRN PRN Reason: PAIN LEVEL 1-5 Last Admin: 05/08/18 13:30 Dose: 1,000 mg Amlodipine Besylate (Norvasc -) 2.5 mg PO DAILY [facility] Last Admin: 05/09/18 10:28 Dose: 2.5 mg Clopidogrel Bisulfate (Plavix -) 75 mg PO DAILY [facility] Last Admin: 05/09/18 10:28 Dose: 75 mg Darunavir (Prezista -) 600 mg PO BID [facility] Last Admin: 05/09/18 10:27 Dose: 600 mg Duloxetine HCl (Cymbalta -) 30 mg PO BID [facility] Last Admin: 05/09/18 10:28 Dose: 30 mg Etravirine (Intelence -) 200 mg PO BIDPC [facility] Last Admin: 05/09/18 10:27 Dose: 200 mg Gabapentin (Neurontin -) 600 mg PO TID [facility] Last Admin: 05/09/18 05:32 Dose: 600 mg Heparin Sodium (Porcine) (Heparin -) 5,000 unit SQ BID [facility] Last Admin: 05/09/18 10:27 Dose: 5,000 unit Lisinopril (Prinivil) 20 mg PO DAILY [facility] Last Admin: 05/09/18 10:28 Dose: 20 mg Metoprolol Succinate (Toprol Xl -) 100 mg PO BID [facility] Last Admin: 05/09/18 10:28 Dose: 100 mg Potassium Chloride (Potassium Chloride Oral Liquid) 40 meq PO BID [facility] Last Admin: 05/09/18 10:28 Dose: 40 meq Vancomycin HCl (Vancomycin Oral Solution) 125 mg PO Q6HPO [facility] Last Admin: 05/09/18 05:32 Dose: 125 mg - Objective Vital Signs: Vital Signs Temperature 98.2 F 05/09/18 05:00 Pulse Rate 86 05/09/18 05:00 Respiratory Rate 14 05/09/18 05:00 Blood Pressure 119/71 05/09/18 05:00 O2 Sat by Pulse Oximetry (%) 100 05/08/18 21:00 Constitutional: Yes: Calm, Mild Distress Cardiovascular: Yes: Regular Rate and Rhythm Respiratory: Yes: Regular, CTA Bilaterally Gastrointestinal: Yes: Normal Bowel Sounds, Soft Musculoskeletal: Yes: WNL Extremities: Yes: Other Wound/Incision: Yes: Other (left heel ulcer) Neurological: Yes: Alert, Oriented Psychiatric: Yes: Alert, Oriented Labs: CBC, BMP 05/09/18 06:30 05/08/18 17:44 INR, PTT INR 0.97 (0.83-1.09) 05/06/18 15:05 Assessment/Plan Problem List - Problems (1) Anemia Code(s): D64.9 - ANEMIA, UNSPECIFIED (2) C. difficile colitis Code(s): A04.72 - ENTEROCOLITIS D/T CLOSTRIDIUM DIFFICILE, NOT SPCF RECUR (3) Falls Code(s): W19.XXXA - UNSPECIFIED FALL, INITIAL ENCOUNTER (4) NÉSTOR (acute kidney injury) Code(s): N17.9 - ACUTE KIDNEY FAILURE, UNSPECIFIED (5) DVT (deep venous thrombosis) Code(s): I82.409 - ACUTE EMBOLISM AND THOMBOS UNSP DEEP VN UNSP LOWER EXTREMITY (6) H/O traumatic subdural hematoma Code(s): Z87.828 - PERSONAL HISTORY OF OTH (HEALED) PHYSICAL INJURY AND TRAUMA (7) Stented coronary artery Code(s): Z95.5 - PRESENCE OF CORONARY ANGIOPLASTY IMPLANT AND GRAFT (8) CKD (chronic kidney disease) Code(s): N18.9 - CHRONIC KIDNEY DISEASE, UNSPECIFIED (9) Diabetes Code(s): E11.9 - TYPE 2 DIABETES MELLITUS WITHOUT COMPLICATIONS (10) HIV (human immunodeficiency virus infection) Code(s): Z21 - ASYMPTOMATIC HUMAN IMMUNODEFICIENCY VIRUS INFECTION STATUS (11) Subdural hematoma Code(s): S06.5X9A - TRAUM SUBDR HEM W LOC OF UNSP DURATION, INIT Assessment/Plan 67 y.o. female with PMH of HIV on Darunavir/Raltegravir/Etravirine/Ritonavir ( unknown CD4/HIV VL), IDDM, CVA, SDH s/p craniotomy, CKD, CAD, SC s/p stent, CHF , DVT presenting with Rt knee pain s/p fall and Lt heel pain noted to have loose BMs yesterday with low grade fever and leukocytosis C. diff Colitis HIV Rt knee pain s/p Fall - no fracture on XRay/ neg DVT Lt heel ulcer/eschar Anemia s/p transfusion NÉSTOR on CKD IDDM Hx of CVA Hx of DVT plan continue current mgmgt vanco oral for 14 days rest as per the team
[2018-05-09] MEDS: ACETAMINOPHEN 500 MG TABLET (FP) PO PRN (13:03)
[2018-05-09 13:40] VITALS: BP 156/84; PULSE 88
--- NOTE | 2018-05-09 16:15 | DS ---
Physical Examination Vital Signs: Vital Signs Temperature 98.2 F 05/09/18 05:00 Pulse Rate 88 05/09/18 09:00 Respiratory Rate 18 05/09/18 09:00 Blood Pressure 156/84 05/09/18 09:00 O2 Sat by Pulse Oximetry (%) 100 05/08/18 21:00 Constitutional: Yes: No Distress HENT: Yes: Atraumatic Neck: Yes: Supple Cardiovascular: Yes: Regular Rate and Rhythm Respiratory: Yes: CTA Bilaterally Gastrointestinal: Yes: Normal Bowel Sounds Extremities: Yes: WNL Edema: No Peripheral Pulses WNL: Yes Neurological: Yes: Alert, Oriented Labs: CBC, BMP 05/09/18 06:30 05/08/18 17:44 Discharge Summary Reason For Visit: SUBTHERAPEUTIC ANTICOGULATION/HYPOKALEMIA Condition: Stable - Instructions Diet, Activity, Other Instructions: follow up with primary physician for cdiff in 1 week or soon if needed Referrals: Berry Julio MD [Primary Care Provider] - Disposition: HOME - Home Medications Comprehensive Discharge Medication List: Ambulatory Orders Amlodipine Besylate [Norvasc -] 2.5 mg PO DAILY 07/08/17 Gabapentin 600 mg PO TID 07/08/17 Clopidogrel Bisulfate [Clopidogrel] 75 mg PO DAILY 11/03/17 Darunavir Ethanolate [Prezista -] 600 mg PO BID 11/03/17 Duloxetine HCl [Cymbalta -] 30 mg PO BID 11/03/17 Etravirine [Intelence -] 200 mg PO BID 11/03/17 Lisinopril [Prinivil] 20 mg PO DAILY 11/03/17 Metoprolol Succinate [Toprol XL -] 100 mg PO BID 11/03/17 Raltegravir [Isentress] 400 mg PO BID 11/03/17 Ritonavir 100 mg PO BID 11/03/17 Tramadol HCl 50 mg PO TID PRN #8 tablet MDD 3 tabs 11/03/17 Warfarin Sodium [Coumadin] 7.5 mg PO ASDIR 12/03/17 Vancomycin Oral Solution 125 mg PO Q6HPO 7 Days #1000 ml 05/08/18 ut home
== END 2018-05-09 16:09 | disposition home or self-care (01) | DRG 593 ==
LOC: JER 13:57 → INTOOBSV 18:19 → JERBED 18:19 → J6S 05-06 17:06 → OBSVTOIN 05-07 17:06 → J6S 05-07 18:27
PROVIDERS: ADMIT Internal Medicine; ATTEND Internal Medicine
PROC: 30233N1 Transfusion of Nonautologous Red Blood Cells into Peripheral Vein, Percutaneous Approach (ICD-10-PCS; principal; 2018-05-06)
DX: L97.429 Non-pressure chronic ulcer of left heel and midfoot with unspecified severity (principal); D68.8 Other specified coagulation defects; I69.351 Hemiplegia and hemiparesis following cerebral infarction affecting right dominant side; I13.0 Hypertensive heart and chronic kidney disease with heart failure and stage 1 through stage 4 chronic kidney disease, or unspecified chronic kidney disease; I42.8 Other cardiomyopathies; I16.1 Hypertensive emergency; N17.9 Acute kidney failure, unspecified; A04.72 Enterocolitis due to Clostridium difficile, not specified as recurrent; Z21 Asymptomatic human immunodeficiency virus [HIV] infection status; M17.11 Unilateral primary osteoarthritis, right knee; E78.5 Hyperlipidemia, unspecified; E11.22 Type 2 diabetes mellitus with diabetic chronic kidney disease; N18.9 Chronic kidney disease, unspecified; Z86.718 Personal history of other venous thrombosis and embolism; Z79.01 Long term (current) use of anticoagulants; Z95.5 Presence of coronary angioplasty implant and graft; Z74.01 Bed confinement status; I69.392 Facial weakness following cerebral infarction; Z87.891 Personal history of nicotine dependence; I25.2 Old myocardial infarction; Z79.4 Long term (current) use of insulin; F41.9 Anxiety disorder, unspecified; D63.8 Anemia in other chronic diseases classified elsewhere; D63.1 Anemia in chronic kidney disease; S80.01XA Contusion of right knee, initial encounter; W18.39XA Other fall on same level, initial encounter; Y93.89 Activity, other specified; Y92.89 Other specified places as the place of occurrence of the external cause; Y99.8 Other external cause status; I25.10 Atherosclerotic heart disease of native coronary artery without angina pectoris; E87.6 Hypokalemia
CPT/HCPCS: 36415; 36430; 73564-TC-RT-FY; 73630-TC-LT; 80053; 82272; 83735; 83880; 85025; 85610; 85730; 86140; 86850; 86900; 86901; 86922; 87324; 87449; 90688; 93005; 93010; 93925-TC; 93971-TC; 99282-25; G0008; G0378; J1644; P9038; P9058

== ENCOUNTER 2018-07-24 18:47 | Emergency (ER) | payer OTHER ==
[2018-07-24 19:09] VITALS: BP 119/62; PULSE 76; TEMP 98.9; BMI 24.8
--- NOTE | 2018-07-24 20:05 | PDOC ---
Attending Attestation - Resident Resident Name: Mat Tabor - ED Attending Attestation I have performed the following: I have examined & evaluated the patient, The case was reviewed & discussed with the resident, I agree w/resident's findings & plan, Exceptions are as noted - Medical Decision Making 07/24/18 20:05 I, Dr. Latricia Foster, DO, attest that this document has been prepared under my direction and personally reviewed by me in its entirety. I further attest, that it accurately reflects all work, treatment, procedures and medical decision -making performed by me. 07/24/18 20:12 a/p: 67yo female with hx of DM here for eval of elevated blood glucose at home -pt nromally checks sugar prior to eating -today she used her insulin and then ate and when she checked her sugar right after eating iat was >400 -pt did use her insulin -pt denies all complaints -blood glucose in the ED was 97 -pt requesting to go home, pt denies all complaints -pt is nontoxic in appearance -family at the bedside want to take the patient home <Latricia Foster - Last Filed: 07/24/18 20:12> - HPI HPI: The patient is a 67 year old female (bed ridden at baseline), with a significant PMH of hypertension, insulin dependent diabetes, hyperlipidemia, HIV (VL and CD4 unknown), CVA (with residual right sided weakness), subdural hematoma, CKD, CAD, CHF, and DVT, who presents to the emergency department today complaining of elevated sugar for one day. As per patients family, they measured her blood sugar (in the 490s) after she ate lunch, when they typically measure it first thing in the morning. Her lunch today consisted of chicken, rice, and corn. Patient took her insulin after lunch. Patient's sugar has since resolved while in the ED, measured at 97. Patient is asymptomatic at this time. The patient denies chest pain, shortness of breath, headache and dizziness. Denies fever, chills, nausea, vomit, diarrhea and constipation. Denies dysuria, frequency, urgency and hematuria. Allergies: NKA Past surgical history: 2 cardaic stent placements and bladder cysts Social history: No reported PCP: Dr. Lior Julio 07/24/18 20:19 - Physicial Exam PE: GENERAL: +At her baseline mental status. Awake, alert, and fully oriented, in no acute distress. HEAD: No signs of trauma EYES: PERRLA, EOMI, sclera anicteric, conjunctiva clear ENT: Auricles normal inspection, hearing grossly normal, nares patent, oropharynx clear without exudates. Moist mucosa NECK: Normal ROM, supple, no lymphadenopathy, JVD, or masses LUNGS: Breath sounds equal, clear to auscultation bilaterally. No wheezes, and no crackles HEART: Regular rate and rhythm, normal S1 and S2, no murmurs, rubs or gallops ABDOMEN: Soft, nontender, normoactive bowel sounds. No guarding, no rebound. No masses EXTREMITIES: +Wound to the left heel. Normal range of motion, no edema. No clubbing or cyanosis. No cords, erythema, or tenderness. NEUROLOGICAL: Cranial nerves II through XII grossly intact. Normal speech, normal gait SKIN:+Wound to the left heel. Warm, Dry, normal turgor, no rashes noted. 07/24/18 20:19 - Medical Decision Making Documentation prepared by LETI Zapien, acting as medical claims representative for Latricia Foster DO. 07/24/18 20:19 <Antonette Angel - Last Filed: 07/25/18 01:45>
--- NOTE | 2018-07-24 20:06 | PDOC ---
History of Present Illness - General Chief Complaint: Blood Sugar Problem Stated Complaint: BLOOD SUGAR PROBLEM Time Seen by Provider: 07/24/18 19:34 History Source: Patient, Family (Daughter present) Exam Limitations: No Limitations - History of Present Illness Initial Comments: 07/24/18 19:57 67 yo female pmh of HTN, IDDM, HLD, HIV (VL and CD4 unknown), CVA (Residual R sided weakness), subdural hematoma, CKD, CAD, CHF (last ECHO 07/07 EF62), and recent admission to [facility] for DVT (DC 2 weeks ago) presents to the ED with Daughter for 1 elevated blood sugar reading today. Daughter states she usually takes pts blood sugar in the AM but forgot today and ended up checking her sugar 1 hour after a meal. Blood sugar at home noted to be in the 490s and EMS was called. Finger stick on arrival 97. Pt has no new complaints, is at baseline mentation denies CP, SOB, abdominal pain, changes in bowel or bladder habits, F/C/N/V. Past History - Past Medical History Allergies/Adverse Reactions: Allergies Allergy/AdvReac Type Severity Reaction Status Date / Time No Known Allergies Allergy Verified 07/24/18 19:09 Home Medications: Ambulatory Orders Amlodipine Besylate [Norvasc -] 2.5 mg PO DAILY 07/08/17 Gabapentin 600 mg PO TID 07/08/17 Clopidogrel Bisulfate [Clopidogrel] 75 mg PO DAILY 11/03/17 Darunavir Ethanolate [Prezista -] 600 mg PO BID 11/03/17 Duloxetine HCl [Cymbalta -] 30 mg PO BID 11/03/17 Etravirine [Intelence -] 200 mg PO BID 11/03/17 Lisinopril [Prinivil] 20 mg PO DAILY 11/03/17 Metoprolol Succinate [Toprol XL -] 100 mg PO BID 11/03/17 Raltegravir [Isentress] 400 mg PO BID 11/03/17 Ritonavir 100 mg PO BID 11/03/17 Tramadol HCl 50 mg PO TID PRN #8 tablet MDD 3 tabs 11/03/17 Warfarin Sodium [Coumadin] 7.5 mg PO ASDIR 12/03/17 Vancomycin Oral Solution 125 mg PO Q6HPO 7 Days #1000 ml 05/08/18 Anemia: No Asthma: No Cancer: No Cardiac Disorders: Yes (2 stent, DVT) CVA: Yes (R facial droop and RUE weakness) COPD: No CHF: Yes Dementia: No Diabetes: Yes GI Disorders: No Disorders: No HTN: Yes Hypercholesterolemia: Yes Liver Disease: No Seizures: No Thyroid Disease: No - Surgical History Abdominal Surgery: No Appendectomy: No Cardiac Surgery: Yes (2 Stents) Cholecystectomy: No Lung Surgery: No Neurologic Surgery: Yes (BRAIN SX S/P FALL) Orthopedic Surgery: No - Immunization History Immunization Up to Date: Yes - Suicide/Smoking/Psychosocial Hx Smoking Status: No Smoking History: Current every day smoker Have you smoked in the past 12 months: No Number of Cigarettes Smoked Daily: 0 If you are a former smoker, when did you quit?: 30YR Information on smoking cessation initiated: No Hx Alcohol Use: No Drug/Substance Use Hx: No Substance Use Type: None Hx Substance Use Treatment: No Review of Systems - Review of Systems Able to Perform ROS?: No (limited by dementia.) Comments:: 07/25/18 19:19 Daughter denies any recent complaints at home or new changes other than isolated elevation in blood sugar *Physical Exam - Vital Signs Last Vital Signs Temp Pulse Resp BP Pulse Ox 98.9 F 76 16 119/62 100 07/24/18 18:47 07/24/18 18:47 07/24/18 18:47 07/24/18 18:47 07/24/18 18:47 - Physical Exam General Appearance: Yes: Nourished, Appropriately Dressed HEENT: positive: EOMI Neck: positive: Supple. negative: Carotid bruit Respiratory/Chest: positive: Lungs Clear, Normal Breath Sounds. negative: Accessory Muscle Use, Rapid RR, Crackles, Rales, Rhonchi, Stridor, Wheezing Vascular Pulses: Dorsalis-Pedis (R): 4+, Doralis-Pedis (L): 4+ Gastrointestinal/Abdominal: positive: Flat, Soft. negative: Pulsatile Mass, Protuberent, Distended, Guarding, Rebound, Tenderness Musculoskeletal: negative: CVA Tenderness Extremity: positive: Normal Capillary Refill, Normal Inspection Integumentary: positive: Normal Color, Dry, Warm Neurologic: positive: Alert, Normal Mood/Affect, Normal Response, Motor Strength 5/5 ED Treatment Course - ADDITIONAL ORDERS Additional order review: Laboratory Results 04/04/19 19:47 POC Glucometer 97 07/24/18 19:47 POC Glucometer 97 Medical Decision Making - Medical Decision Making 07/24/18 20:52 67 yo female pmh of HTN, IDDM, HLD, HIV (VL and CD4 unknown), CVA (Residual R sided weakness), subdural hematoma, CKD, CAD, CHF (last ECHO 07/07 EF62), and recent admission to [facility] for DVT (DC 2 weeks ago) presents to the ED with Daughter for 1 elevated blood sugar reading today. Daughter states she usually takes pts blood sugar in the AM but forgot today and ended up checking her sugar 1 hour after a meal. Blood sugar at home noted to be in the 490s and EMS was called. Finger stick on arrival 97. Pt has no new complaints, is at baseline mentation denies CP, SOB, abdominal pain, changes in bowel or bladder habits, F/C/N/V. Blood sugar on finger stick in the ED on arrival is 97 Vitals WNL No medical complaints at this time, no acute changes and is at baseline mentation according to daughter NAD, non toxic appearing Pt does not require further blood work or imaging at this time Discussed the need to check bs at the same time every day to get accurate and comparable results especially in correlation with meals. Daughter understands and agrees mother is safe for DC home with PCP f/u. Strict return precautions given *DC/Admit/Observation/Transfer Diagnosis at time of Disposition: Elevated blood sugar - Discharge Dispostion Disposition: HOME Condition at time of disposition: Stable Decision to Admit order: No - Referrals - Patient Instructions Printed Discharge Instructions: DI for Hyperglycemia -- Adult Additional Instructions: Please see your primary doctor within the next 48 hours. Continue taking your home dosed medications as prescribed. Make sure to consistently check your blood sugar at the same time every day. Return to the ER for new or concerning symptoms including but not limited to: high fevers, chest pain, shortness of breath, elevated blood sugar 3 hours past last meal. Thank you - Post Discharge Activity
== END 2018-07-24 21:49 | disposition home or self-care (01) ==
LOC: JER 18:47
DX: E11.65 Type 2 diabetes mellitus with hyperglycemia (principal); Z79.4 Long term (current) use of insulin; I25.10 Atherosclerotic heart disease of native coronary artery without angina pectoris; I13.0 Hypertensive heart and chronic kidney disease with heart failure and stage 1 through stage 4 chronic kidney disease, or unspecified chronic kidney disease; N18.9 Chronic kidney disease, unspecified; I50.9 Heart failure, unspecified; Z95.5 Presence of coronary angioplasty implant and graft; E78.5 Hyperlipidemia, unspecified; Z21 Asymptomatic human immunodeficiency virus [HIV] infection status; I69.851 Hemiplegia and hemiparesis following other cerebrovascular disease affecting right dominant side; I69.892 Facial weakness following other cerebrovascular disease
CPT/HCPCS: 82962; 99281-25

== ENCOUNTER 2019-02-27 10:12 | Emergency (ER) | payer OTHER ==
--- NOTE | 2019-02-27 10:17 | PDOC ---
History of Present Illness - General History Source: Patient Exam Limitations: Dementia - History of Present Illness Initial Comments: Pt is a 68 yo F, with PMH of HTN, IDDM, HLD, HIV, CKD, CAD (s/p stents), GIB, CVA and subdural (R-sided deficits), CHF (EF 50%), dementia, and DVT (on ASA and Eliquis), who is presenting with SOB since this morning. Pt is accompanied by her daughter, who states pt is at baseline behavior. They endorse decreased appetite this week, and that they have noticed "blood when she wipes from irritation of her backside". Pt is demented and cannot provide ROS, but family denies any recent fevers, syncope, chest pain, nausea/vomiting, abdominal pain, urinary symptoms, diarrhea/constipation, or leg swelling. Allergies: NKDA PCP: Dr. Epifanio Brown: Denies any cigarette, alcohol, or drug use. Denies any recent travel or sick contacts. Surgical: cardiac stenting, "endoscopy 1 year ago for bloody vomit and rectal bleeding" Family: no relevant history. 02/27/19 14:08 <Fariha Wallis - Last Filed: 02/27/19 14:08> <Shakila Sellers - Last Filed: 02/27/19 16:01> - General Stated Complaint: Shortness of Breath Time Seen by Provider: 02/27/19 10:17 Past History - Travel Traveled outside of the country in the last 30 days: No Close contact w/someone who was outside of country & ill: No - Past Medical History Anemia: No Asthma: No Cancer: No Cardiac Disorders: Yes (2 stent, DVT) CVA: Yes (R facial droop and RUE weakness) COPD: No CHF: Yes Dementia: No Diabetes: Yes GI Disorders: No Disorders: No HTN: Yes Hypercholesterolemia: Yes Liver Disease: No Seizures: No Thyroid Disease: No - Surgical History Abdominal Surgery: No Appendectomy: No Cardiac Surgery: Yes (2 Stents) Cholecystectomy: No Lung Surgery: No Neurologic Surgery: Yes (BRAIN SX S/P FALL) Orthopedic Surgery: No - Immunization History Immunization Up to Date: Yes - Psycho Social/Smoking Cessation Hx Smoking Status: No Smoking History: Current every day smoker Have you smoked in the past 12 months: No Number of Cigarettes Smoked Daily: 0 If you are a former smoker, when did you quit?: 30YR Hx Alcohol Use: No Drug/Substance Use Hx: No Substance Use Type: None Hx Substance Use Treatment: No <Fariha Wallis - Last Filed: 02/27/19 14:08> <VeritoShakilanicolette Trejo - Last Filed: 02/27/19 16:01> - Past Medical History Allergies/Adverse Reactions: Allergies Allergy/AdvReac Type Severity Reaction Status Date / Time No Known Allergies Allergy Verified 02/27/19 10:46 Home Medications: Ambulatory Orders Amlodipine Besylate [Norvasc -] 10 mg PO DAILY 07/08/17 Gabapentin 400 mg PO TID 07/08/17 Darunavir Ethanolate [Prezista -] 600 mg PO BID 11/03/17 Duloxetine HCl [Cymbalta -] 30 mg PO BID 11/03/17 Etravirine [Intelence -] 200 mg PO BID 11/03/17 Metoprolol Succinate [Toprol XL -] 25 mg PO BID 11/03/17 Raltegravir [Isentress] 400 mg PO BID 11/03/17 Ritonavir 100 mg PO BID 11/03/17 Apixaban [Eliquis] 2.5 mg PO BID 02/27/19 Ascorbic Acid [Vitamin C] 250 mg PO DAILY 02/27/19 Aspirin [ASA -] 81 mg PO DAILY 02/27/19 Famotidine 20 mg PO DAILY 02/27/19 Furosemide [Lasix] 40 mg PO DAILY 02/27/19 Ritonavir [Norvir -] 100 mg PO BID 02/27/19 Rosuvastatin [Crestor -] 20 mg PO DAILY 02/27/19 Zinc Sulfate 220 mg PO DAILY 02/27/19 Respiratory Specific PMHX - Complaint Specific PMHX Hx Asthma: No Hx Intubation: No Hx Bronchitis: No Hx Pneumonia: No Hx Pulmonary Embolus: No Hx TB (Tuberculosis): No Hx Angina: No <Fariha Wallis - Last Filed: 02/27/19 14:08> Review of Systems - Review of Systems Able to Perform ROS?: No (see HPI) <aFriha Wallis - Last Filed: 02/27/19 14:08> *Physical Exam - Physical Exam Comments: Tachypneic on arrival, O2 95% on 5 L NC. Pt with dementia (AMS at baseline), increased WOB. Pt alert and can answer questions appropriately. Oriented to person and place only. long term acute care registered nurse generally intact, muscular strength and sensation intact. Mild decreased strength in RUE and RLE (baseline post CVA) No midline spinal tenderness, step-offs, or crepitus. Head normocephalic, atraumatic. Eyes PERRLA, EOMI. Oropharynx without erythema or exudates, no LAD b/l. No nasal congestion. Hearing intact. Clear heart sounds, S1/S2, no JVD, b/l pedal edema, or heart murmur. Coarse breath sounds b/l bases, diminished LL lung antoine. No abdominal or CVA tenderness to palpation, no rebound, no guarding. Abdomen soft, non-distended, and with normoactive bowel sounds. Rectal exam showed sarath blood. +draining 1 cm abscess to R buttocks. L buttocks with Stage 1 pressure ulcer ~2 cm. Small pressure ulcer dorsal L foot, well-healing, no drainage or erythema. Skin otherwise without jaundice or rash. 02/27/19 14:17 <Fariha Wallis - Last Filed: 02/27/19 14:08> - Vital Signs Last Vital Signs Temp Pulse Resp BP Pulse Ox 98.4 F 85 22 H 139/66 95 02/27/19 10:30 02/27/19 13:16 02/27/19 13:16 02/27/19 13:16 02/27/19 13:16 <Shakila Sellers - Last Filed: 02/27/19 16:01> ED Treatment Course - LABORATORY CBC & Chemistry Diagram: 02/27/19 11:27 02/27/19 12:44 <Fariha Wallis - Last Filed: 02/27/19 14:08> - LABORATORY CBC & Chemistry Diagram: 02/27/19 11:27 02/27/19 12:44 - ADDITIONAL ORDERS Additional order review: Laboratory Results 02/27/19 02/27/19 02/27/19 12:49 12:44 12:44 PT with INR INR VBG pH POC VBG pCO2 POC VBG pO2 VBG HCO3 VBG O2 Sat (Mone) VBG Base Excess Sodium Potassium 4.8 Chloride Carbon Dioxide Anion Gap BUN Creatinine Est GFR (CKD-EPI)AfAm Est GFR (CKD-EPI)NonAf Random Glucose Calcium Total Bilirubin AST ALT Alkaline Phosphatase Creatine Kinase Troponin I B-Natriuretic Peptide Total Protein Albumin Stool Occult Blood Positive Blood Type A POSITIVE Antibody Screen Negative Crossmatch See Detail 02/27/19 02/27/19 02/27/19 11:27 11:27 11:27 PT with INR 21.60 H INR 1.82 H VBG pH 7.38 POC VBG pCO2 37.4 L POC VBG pO2 < 49 H VBG HCO3 21.5 L VBG O2 Sat (Mone) 69.7 L VBG Base Excess -2.8 L Sodium Cancelled Potassium Cancelled Chloride Cancelled Carbon Dioxide Cancelled Anion Gap Cancelled BUN Cancelled Creatinine Cancelled Est GFR (CKD-EPI)AfAm Cancelled Est GFR (CKD-EPI)NonAf Cancelled Random Glucose Cancelled Calcium Cancelled Total Bilirubin Cancelled AST Cancelled ALT Cancelled Alkaline Phosphatase Cancelled Creatine Kinase 202 H Troponin I < 0.02 B-Natriuretic Peptide 3310.3 H Total Protein Cancelled Albumin Cancelled Stool Occult Blood Blood Type Antibody Screen Crossmatch 02/27/19 10:49 PT with INR INR VBG pH POC VBG pCO2 POC VBG pO2 VBG HCO3 VBG O2 Sat (Mone) VBG Base Excess Sodium 131 L Potassium Chloride 101 Carbon Dioxide 21 Anion Gap 8 BUN 61.6 H Creatinine 3.5 H Est GFR (CKD-EPI)AfAm 14.54 Est GFR (CKD-EPI)NonAf 12.54 Random Glucose 191 H Calcium 8.1 L Total Bilirubin 0.7 AST 51 H ALT 38 Alkaline Phosphatase 157 H Creatine Kinase Troponin I B-Natriuretic Peptide Total Protein 7.7 Albumin 2.4 L Stool Occult Blood Blood Type Antibody Screen Crossmatch 02/27/19 11:27 RBC 1.95 L MCV 90.2 MCHC 32.6 RDW 16.2 H MPV 8.2 D Neutrophils % 74.7 Lymphocytes % 11.9 D Monocytes % 10.6 H Eosinophils % 1.4 Basophils % 1.4 - Medications Given in the ED: ED Medications Discontinued Medications Generic Name Dose Route Start Last Admin Trade Name Freq PRN Reason Stop Dose Admin Pantoprazole Sodium 40 mg 02/27/19 12:48 02/27/19 13:08 Protonix Iv IVPUSH 02/27/19 12:49 40 mg ONCE ONE Administration <Shakila Sellers - Last Filed: 02/27/19 16:01> Medical Decision Making - Medical Decision Making Pt was seen at bedside, also will be seen by attending Dr. Sellers. Pt presenting with dyspnea and recent decreased appetite. Will evaluate for infection ( pneumonia) vs pleural effusion 2/2 worsened renal function vs PE vs ACS PT received 1 duoneb tx on ambulance, 12 lead normal at that time. Provided 5 L NC for improvement of dyspnea. Will continue to reassess pt and monitor for symptomatic improvement. ECG: NSR, intervals WNL (HR 82, NJ 182, QRS 90, QTc 479).TWIs in aVL, with no significant ST segment changes. No significant changes from prior ECG (05/05/2018 ) 02/27/19 14:20 Bedside POCUS showed pericardial effusion ~2-3 cm and pleural effusion; confirmed by chest x-ray CBC: worsening anemia 09/05 CMP: worsening CKD, BUN/Cr 61/3.5 After obtaining rectal and asking family about possible GI bleed, they revealed pt had "vomiting blood and rectal bleeding" 1 year ago from bleeding ulcer and had endoscopy done to stop the bleeding. They have noticed blood with wiping after stools x1 week Started 40 protonix bolus and protonix drip Ordered 2 units pRBCs Spoke with GI (Dr. Kee) who recommended transfer to [facility] given prior interventions at [facility] and complexity of procedures required Paged IR, CT surgery, and Cardiology x3. Pt to be transferred to [facility]. Pt continues to be hemodynamically stable, saturating 95% on 5L NC and WOB improved. Pt discussed with [facility] ER (Dr. Mahoney). Pt stable and pending transport. 02/27/19 14:23 <Fariha Wallis - Last Filed: 02/27/19 14:08> - Critical Care Time Total Critical Care Time (minutes): 60 (acute respiratory failure, GIB) Critical Care Statement: The care of this patient involved high complexity decision making to prevent further life threatening deterioration of the patient 's condition and/or to evaluate & treat vital organ system(s) failure or risk of failure. <Shakila Sellers - Last Filed: 02/27/19 16:01> Discharge - Discharge Information Problems reviewed: Yes - Admission No - Transfer to Acute Care Facility Receiving Facility Name: [facility] (Dr. Mahoney) <Fariha Wallis - Last Filed: 02/27/19 14:08> - Discharge Information Problems reviewed: Yes - Transfer to Acute Care Facility Receiving Facility Name: [facility] Accepting Physician:: Dr Hubbard, ED transfer <Shakila Sellers - Last Filed: 02/27/19 16:01> - Discharge Information Clinical Impression/Diagnosis: Pericardial effusion, Pleural effusion, left Anemia Qualifiers: Anemia type: unspecified type Qualified Code(s): D64.9 - Anemia, unspecified GIB (gastrointestinal bleeding) Qualifiers: GI bleed type/associated pathology: unspecified gastrointestinal hemorrhage type Qualified Code(s): K92.2 - Gastrointestinal hemorrhage, unspecified Condition: Critical Disposition: TRANSFER ACUTE CARE/OTHER HOSP - Follow up/Referral Referrals: Lior Godfrey MD [Primary Care Provider] - - Patient Discharge Instructions - Post Discharge Activity
[2019-02-27 10:48] VITALS: BMI 29.1
--- NOTE | 2019-02-27 10:48 | PDOC ---
Attending Attestation - Resident Resident Name: Fariha Wallis - ED Attending Attestation I have performed the following: I have examined & evaluated the patient, The case was reviewed & discussed with the resident, I agree w/resident's findings & plan - HPI HPI: 02/27/19 10:48 68 yo female pmh of HTN, IDDM, HLD, HIV (VL and CD4 unknown), CVA (Residual R sided weakness), subdural hematoma, CKD, CAD, HFpEF -CHF (last ECHO 07/07 EF62), DVT on AC presenting with shortness of breath noted this morning +rectal bleeding intermittently x 1 week, h/o UGIB/ulcer and had EGD/ colonoscopy last year. received albuterol -ipratropium nebs with EMS. 02/27/19 13:47 02/27/19 13:58 - Physicial Exam PE: 02/27/19 10:48 Agree with the resident's HPI and PE as documented in the electronic medical record. Malaised appearing, awake, confused and somnolent. EOMI, PERRL, nl conjunctiva , anicteric; neck supple. lungs b/l wheezing at bases, +rhonchi, RRR, abdomen soft nontender, obese. no rebound, guarding. +rectal bleeding. No peripheral edema. normal color for ethnicity, WWP. +right great toe abrasion at tip, left dorsal foot ulcer 02/27/19 13:05 02/27/19 13:58 - Critical Care Time Total Critical Care Time: 60 (acute respiratory failure, GIB) Critical Care Statement: The care of this patient involved high complexity decision making to prevent further life threatening deterioration of the patient 's condition and/or to evaluate & treat vital organ system(s) failure or risk of failure. - Medical Decision Making 02/27/19 13:06 Vital Signs Temp Pulse Resp BP Pulse Ox 98.4 F 81 18 148/96 95 02/27/19 10:30 02/27/19 12:14 02/27/19 12:14 02/27/19 12:14 02/27/19 12:14 DDx SOB: ACS, PE, PTX, CHF, COPD exac, pulmonary edema, pleurisy, pneumonia, viral syndrome. effusion. anemia, electrolyte/metabolic derangements. VS with hypoxia, soft BP, since improved with o2 therapy. HD appropriate on repeat, no shock/hypotension on rechecks. afebrile, HR normal. Bedside ultrasound revealed large pericardial effusion and early tamponade physiology with plethoric IVC and early RV diastolic collapse. She is hemodynamically appropriate on repeat, initially she had soft blood pressure 90s over 60s. She is currently mentating but is short of breath. There is no evidence of alveolar interstitial syndrome on the ultrasound. She also has a left-sided pleural effusion. EF is relatively preserved going with her prior history of diastolic heart failure but she does not appear clinically fluid overloaded at this time. She remains on oxygen, SPO2 in the low 90s. Laboratory results are reviewed, she has new onset anemia, has been having bleeding per rectum x1 week. She has a history of having bleeding ulcers and this is likely causing her acute anemia. We will have to transfuse 2 units of blood, will attempt consultation with ICU, CT surgery/IC U/IR and GI, awaiting callback. If unable to obtain consultations for definitive management patient will need to be transferred 02/27/19 13:15 Laboratory results are reviewed, acute anemia hemoglobin 5.7, hematocrit 17.6. Coags are fine. VBG is normal without significant acidosis or alkalosis. Electrolytes are unremarkable. Creatinine rise from 2.1 up to 3.5 today. Troponin negative, BNP is consistently elevated but much lower compared to her previous. Rectal exam notable for bleeding. Will start Protonix drip. Call out to have been made to IR/CT surgery/cardiology without success. Did discuss case with Dr. Cazares, GI, patient with multiple problems and requires tertiary care tx to [facility] initiated. dx. pericardial effusion with early tamponade, left pleural effusion, GIB/ anemia. D/W Dr Hubbard, accepting ED transfer, ACLS required. 02/27/19 13:48 02/27/19 13:58 Heart Score/ECG Review #1 ECG reviewed & interpreted by me at: 10:30 General ECG Interpretation: Sinus Rhythm, Normal Rate, Normal Intervals Compared to previous ECG there are: No significant change 02/27/19 10:49 EKG normal sinus rhythm 82 bpm, no interval abnormalities, narrow QRS, ST and T wave segments and morphology normal. Nonspecific T wave abnormalities Procedures - Bedside Ultrasound Bedside Ultrasound: Cardiac Remarks: 02/27/19 13:14 POCUS echo and thoracic exam performed and documented/saved, indication includes chest pain/dyspnea. views obtained (PSLA, PSS, A4, SX, IVC, bilateral lung antoine). Findings include normal EF on visual estimation, +large pericardial effusion measured in diastole, =3cm. +large left pleural effusion, primarily A lines, plethoric IVC with ~50% collapse. Normal aortic root <4cm. RV <LV. Impression: pericardial effusion with early tamponade, left pleural effusion.
[2019-02-27] MEDS ORDERED: BACITRACIN 0.9 GM PACKET ONE (11:21)
[2019-02-27 11:42] LABS: VENOUS PC02 37.4 mmHg (38-52); VENOUS PH 7.38 (7.31-7.41)
[2019-02-27 11:43] LABS: VENOUS PO2 < 49 mmHg (28-48)
[2019-02-27 11:56] LABS: BASO % 1.4 % (0-2.0); EOS % 1.4 % (0-4.5); HEMATOCRIT 17.6 % (32.4-45.2); LYMPH % 11.9 % (8-40); MCH 29.5 pg (25.7-33.7); MCHC 32.6 g/dl (32.0-36.0); MEAN CELL VOLUME 90.2 fl (80-96); MEAN PLT VOLUME 8.2 fl (7.5-11.1); MONO % 10.6 % (3.8-10.2); NEUT % 74.7 % (42.8-82.8); PLATELET COUNT 362 K/MM3 (134-434); RBC 1.95 M/mm3 (3.60-5.2); RDW 16.2 % (11.6-15.6); WHITE BLOOD COUNT 9.6 K/mm3 (4.0-10.0)
[2019-02-27 12:16] LABS: HEMOGLOBIN 5.7 GM/dL (10.7-15.3)
[2019-02-27 12:17] LABS: INR 1.82 (0.83-1.09); PROTHROMBIN TIME (PATIENT) 21.6 SEC (9.7-13.0)
[2019-02-27 12:19] LABS: N-TERMINAL BNP 3310.3 pg/ml (5-125)
[2019-02-27 12:33] LABS: ALBUMIN 2.4 g/dl (3.4-5.0); BILIRUBIN,TOTAL 0.7 mg/dL (0.2-1); BLOOD UREA NITROGEN 61.6 mg/dL (7-18); CALCIUM 8.1 mg/dL (8.5-10.1); CREATININE 3.5 mg/dL (0.55-1.3); TOT PROT 7.7 g/dl (6.4-8.2)
--- NOTE | 2019-02-27 12:34 | CON.CARD ---
Consult - History of Present Illness History of Present Illness: PMH Suffered fall in April 2016 which caused SDH treated with craniotomy and post procedure Plavix was stopped. Ongoing medical problems CAD CVA 2015 D1 70% mLAD 40% January 15, 2013 Dr. Jacquelyn BERNAL of proximal and mid RCA January 15, 2013 Dr. Valladares DM 2004 HIV HTN Hyperlipidemia Negative MIBI stress test July 2014 PCI DOLORES mRCA 2015 [facility] - Past Medical History [employer]: Yes: Other (small SDH) Cardio/Vascular: Yes: CAD, CHF, HTN, Hyperlipdemia Renal/: Yes: Renal Inusuff Infectious Disease: Yes: HIV Psych: Yes: Anxiety Endocrine: Yes: Diabetes Mellitus - Past Surgical History Past Surgical History: Yes: Breast Biopsy, Stent (coronary) - Alcohol/Substance Use Hx Alcohol Use: No - Smoking History Smoking history: Current every day smoker Have you smoked in the past 12 months: No Aproximately how many cigarettes per day: 0 If you are a former smoker, when did you quit?: 30YR - Social History History of Recent Travel: Yes ([place]; returned 08/27/17) Home Medications - Allergies Allergies/Adverse Reactions: Allergies Allergy/AdvReac Type Severity Reaction Status Date / Time No Known Allergies Allergy Verified 02/27/19 10:46 - Home Medications Home Medications: Ambulatory Orders Amlodipine Besylate [Norvasc -] 10 mg PO DAILY 07/08/17 Gabapentin 400 mg PO TID 07/08/17 Darunavir Ethanolate [Prezista -] 600 mg PO BID 11/03/17 Duloxetine HCl [Cymbalta -] 30 mg PO BID 11/03/17 Etravirine [Intelence -] 200 mg PO BID 11/03/17 Metoprolol Succinate [Toprol XL -] 25 mg PO BID 11/03/17 Raltegravir [Isentress] 400 mg PO BID 11/03/17 Ritonavir 100 mg PO BID 11/03/17 Apixaban [Eliquis] 2.5 mg PO BID 02/27/19 Ascorbic Acid [Vitamin C] 250 mg PO DAILY 02/27/19 Aspirin [ASA -] 81 mg PO DAILY 02/27/19 Famotidine 20 mg PO DAILY 02/27/19 Furosemide [Lasix] 40 mg PO DAILY 02/27/19 Ritonavir [Norvir -] 100 mg PO BID 02/27/19 Rosuvastatin [Crestor -] 20 mg PO DAILY 02/27/19 Zinc Sulfate 220 mg PO DAILY 02/27/19 Vital Signs: Vital Signs Temperature 98.4 F 02/27/19 10:30 Pulse Rate 81 02/27/19 12:14 Respiratory Rate 18 02/27/19 12:14 Blood Pressure 148/96 02/27/19 12:14 O2 Sat by Pulse Oximetry (%) 95 02/27/19 12:14 - Other Data Labs, Other Data: CBC, BMP 02/27/19 11:27 02/27/19 11:27 INR, PTT INR 1.82 (0.83-1.09) H 02/27/19 11:27 Troponin, BNP 02/27/19 11:27 Troponin I < 0.02 B-Natriuretic Peptide 3310.3 H Troponin, BNP 02/27/19 11:27 Troponin I < 0.02 B-Natriuretic Peptide 3310.3 H
[2019-02-27] MEDS ORDERED: PANTOPRAZOLE SODIUM 40 MG VIAL IVPUSH ONE (12:48)
[2019-02-27] MEDS ORDERED: PANTOPRAZOLE SODIUM 40 MG/100 ML BAG IVPB ONE (12:54)
[2019-02-27] MEDS ORDERED: PANTOPRAZOLE SODIUM 80 MG in SODIUM CHLORIDE 100 ML IVPB SCH (13:15)
[2019-02-27] MEDS ORDERED: PANTOPRAZOLE SODIUM 40 MG VIAL ONE (13:37)
[2019-02-27 15:31] VITALS: BP 127/45; PULSE 87; TEMP 98.5
--- NOTE | 2019-02-28 11:31 | EKG ---
Test Reason : Blood Pressure : / mmHG Vent. Rate : 082 BPM Atrial Rate : 082 BPM P-R Int : 182 ms QRS Dur : 090 ms QT Int : 410 ms P-R-T Axes : 030 013 110 degrees QTc Int : 479 ms NORMAL SINUS RHYTHM POSSIBLE LEFT ATRIAL ENLARGEMENT T WAVE ABNORMALITY, CONSIDER LATERAL ISCHEMIA ABNORMAL ECG WHEN COMPARED WITH ECG OF 06-MAY-2018 07:29, INVERTED T WAVES HAVE REPLACED NONSPECIFIC T WAVE ABNORMALITY IN LATERAL LEADS Confirmed by MICHAEL DINH MD ([id number]) on 02/28/2019 11:31:01 AM Referred By: Confirmed By:MICHAEL DINH MD
== END 2019-02-27 15:40 | disposition short-term general hospital (02) ==
LOC: JER 10:12
PROC: 3E033GC Introduction of Other Therapeutic Substance into Peripheral Vein, Percutaneous Approach (ICD-10-PCS; principal; 2019-02-27)
PROC: B246ZZZ Ultrasonography of Right and Left Heart (ICD-10-PCS; 2019-02-27)
PROC: BB4BZZZ Ultrasonography of Pleura (ICD-10-PCS; 2019-02-27)
DX: J90 Pleural effusion, not elsewhere classified (principal); K92.2 Gastrointestinal hemorrhage, unspecified; D64.9 Anemia, unspecified; L02.31 Cutaneous abscess of buttock; L89.321 Pressure ulcer of left buttock, stage 1; I25.10 Atherosclerotic heart disease of native coronary artery without angina pectoris; I13.0 Hypertensive heart and chronic kidney disease with heart failure and stage 1 through stage 4 chronic kidney disease, or unspecified chronic kidney disease; N18.9 Chronic kidney disease, unspecified; I50.89 Other heart failure; Z95.5 Presence of coronary angioplasty implant and graft; E78.5 Hyperlipidemia, unspecified; E11.22 Type 2 diabetes mellitus with diabetic chronic kidney disease; Z79.4 Long term (current) use of insulin; Z21 Asymptomatic human immunodeficiency virus [HIV] infection status; F03.90 Unspecified dementia, unspecified severity, without behavioral disturbance, psychotic disturbance, mood disturbance, and anxiety; I69.851 Hemiplegia and hemiparesis following other cerebrovascular disease affecting right dominant side; I69.892 Facial weakness following other cerebrovascular disease; Z86.718 Personal history of other venous thrombosis and embolism; Z79.01 Long term (current) use of anticoagulants; Z79.82 Long term (current) use of aspirin; F17.210 Nicotine dependence, cigarettes, uncomplicated
CPT/HCPCS: 36415; 36430; 71045-TC-FY; 76604; 80053; 82272; 82550; 82553; 82803; 83880; 84132; 84484; 85025; 85610; 86850; 86900; 86901; 86922; 87040; 93005; 93010; 93308; 99285-25; P9058

== ENCOUNTER 2020-04-10 15:33 | Inpatient (IN) | payer OTHER ==
[2020-04-10 18:16] LABS: BASO % 0.7 % (0-2.0); HEMATOCRIT 25.7 % (32.4-45.2); LYMPH % 16.5 % (8-40); MCH 29.5 pg (25.7-33.7); MEAN CELL VOLUME 95.3 fl (80-96); MEAN PLT VOLUME 9.6 fl (7.5-11.1); NEUT % 72.8 % (42.8-82.8); PLATELET COUNT 207 K/MM3 (134-434); RDW 16.9 % (11.6-15.6); WHITE BLOOD COUNT 5.8 K/mm3 (4.0-10.0)
[2020-04-10 18:24] LABS: VENOUS BASE EXCESS -4.7 mmol/L (-2-2); VENOUS O2 SATURATION 35.6 % (70-80); VENOUS PCO2 48.3 mmHg (38-52); VENOUS PH 7.27 (7.310-7.410)
[2020-04-10 18:46] LABS: BLOOD UREA NITROGEN 64.4 mg/dL (7-18); CALCIUM 8.2 mg/dL (8.5-10.1)
[2020-04-10 18:49] LABS: CREATININE 4.9 mg/dL (0.55-1.3)
[2020-04-10 18:51] LABS: BILIRUBIN,TOTAL 0.3 mg/dL (0.2-1); TOT PROT 6.3 g/dl (6.4-8.2)
[2020-04-10 18:51] LABS: INR 0.99 (0.83-1.09)
[2020-04-10 18:54] LABS: ACTIVATED PTT 28.5 SECONDS (25.2-36.5)
[2020-04-10] MEDS ORDERED: DEXTROSE 50%-WATER - 25 GM/50 ML VIAL IVPUSH ONE (19:04)
[2020-04-10] MEDS ORDERED: INSULIN REGULAR HUMAN 100 UNITS/ML *VIAL IVPUSH ONE (19:04)
[2020-04-10 19:30] LABS: N-TERMINAL BNP 39995.8 pg/ml (5-125)
[2020-04-10] MEDS ORDERED: INSULIN REGULAR HUMAN 100 UNITS/ML *VIAL ONE (19:32)
[2020-04-10] MEDS ORDERED: DEXTROSE 50%-WATER 25 GM/50 ML DISP.SYRIN ONE (19:32)
[2020-04-10] MEDS ORDERED: FUROSEMIDE 40 MG/4 ML INJECTABLE VIAL IVPUSH ONE (20:44)
[2020-04-10] MEDS ORDERED: FUROSEMIDE 40 MG/4 ML INJECTABLE VIAL ONE (20:49)
[2020-04-10 21:50] LABS: CREATININE 4.9 mg/dL (0.55-1.3)
[2020-04-10] MEDS ORDERED: HEPARIN NA (PORCINE) 5,000 UNITS/ML 1ML VIAL SQ SCH (22:30)
[2020-04-10] MEDS ORDERED: HEPARIN NA (PORCINE) 5,000 UNITS/ML 1ML VIAL ONE (22:47)
[2020-04-10] MEDS ORDERED: FUROSEMIDE 40 MG/4 ML INJECTABLE VIAL IVPB ONE (23:47)
[2020-04-11] MEDS ORDERED: CEFTRIAXONE 1 GM in DEXTROSE 5%-WATER - 50 ML IVPB ONE (00:02)
[2020-04-11] MEDS ORDERED: AZITHROMYCIN IVPB 500 MG/250 ML BAG IVPB ONE ×2 (00:02→00:28)
[2020-04-11] MEDS ORDERED: FUROSEMIDE 40 MG/4 ML INJECTABLE VIAL ONE (00:28)
[2020-04-11] MEDS: SODIUM BICARBONATE 650 MG TABLET PO SCH ×3 (06:42→21:58)
[2020-04-11] MEDS: GABAPENTIN 400 MG CAPSULE PO SCH ×3 (06:42→21:58)
[2020-04-11] MEDS: INSULIN SLIDING SCALE (NOVOLOG) 1 VIAL SQ SCH ×4 (07:53→22:10)
[2020-04-11 08:57] LABS: EPI CELLS 16 /uL (0-25.1); HYALINE CASTS 1 /uL (0-3.1); URINE APPEARANCE CLEAR; URINE BACTERIA 29 /uL (0-1359); URINE BILIRUBIN NEGATIVE (NEGATIVE); URINE COLOR YELLOW; URINE GLUCOSE (UA) NEGATIVE (NEGATIVE); URINE KETONE NEGATIVE (NEGATIVE); URINE LEUK ESTERASE NEGATIVE (NEGATIVE); URINE NITRITE NEGATIVE (NEGATIVE); URINE PROTEIN 3+ (NEGATIVE); URINE RBC 49 /uL (0-23.9); URINE UROBILINOGEN 0.2 mg/dL (0.2-1.0); URINE WBC 16 /uL (0-25.8)
[2020-04-11] MEDS: ASCORBIC ACID 250 MG TABLET (FP) PO SCH (09:35)
[2020-04-11] MEDS: ASPIRIN 81 MG CHEWABLE TABLETS PO SCH (09:35)
[2020-04-11] MEDS: ZINC SULFATE 220 MG CAPSULE (FP) PO SCH (09:36)
[2020-04-11] MEDS: FAMOTIDINE 20 MG TABLET PO SCH (09:36)
[2020-04-11] MEDS ORDERED: APIXABAN 2.5 MG TABLET ONE (09:37)
[2020-04-11] MEDS ORDERED: ZINC SULFATE 220 MG CAPSULE (FP) ONE (09:37)
[2020-04-11] MEDS ORDERED: metoPROLOL SUCCINATE 25 MG TAB.SR.24H (FP) ONE (09:37)
[2020-04-11] MEDS ORDERED: FAMOTIDINE 20 MG TABLET ONE (09:37)
[2020-04-11] MEDS: metoPROLOL SUCCINATE 25 MG TAB.SR.24H (FP) PO SCH ×2 (09:37→21:58)
[2020-04-11] MEDS ORDERED: APIXABAN 2.5 MG TABLET PO SCH (10:00)
[2020-04-11 12:02] LABS: BASO % 0.9 % (0-2.0); EOS % 5.6 % (0-4.5); HEMATOCRIT 20.2 % (32.4-45.2); LYMPH % 27.1 % (8-40); MCH 29.7 pg (25.7-33.7); MCHC 31.4 g/dl (32.0-36.0); MEAN CELL VOLUME 94.7 fl (80-96); MEAN PLT VOLUME 9.4 fl (7.5-11.1); MONO % 7.8 % (3.8-10.2); NEUT % 58.6 % (42.8-82.8); PLATELET COUNT 214 K/MM3 (134-434); RBC 2.13 M/mm3 (3.60-5.2); RDW 16.5 % (11.6-15.6)
[2020-04-11 12:04] LABS: HEMOGLOBIN 6.3 GM/dL (10.7-15.3)
[2020-04-11 12:24] LABS: ALBUMIN 2.2 g/dl (3.4-5.0); BLOOD UREA NITROGEN 65.4 mg/dL (7-18); CALCIUM 8.9 mg/dL (8.5-10.1)
[2020-04-11 12:27] LABS: MAGNESIUM 2.1 mg/dL (1.8-2.4)
[2020-04-11 12:28] LABS: PHOSPHOROUS 6.2 mg/dL (2.5-4.9)
[2020-04-11 12:29] LABS: BILIRUBIN,TOTAL 0.5 mg/dL (0.2-1); TOT PROT 6.9 g/dl (6.4-8.2)
[2020-04-11 12:30] LABS: CREATININE 5.1 mg/dL (0.55-1.3)
[2020-04-11] MEDS ORDERED: PANTOPRAZOLE SODIUM 40 MG VIAL IVPUSH ONE (13:14)
[2020-04-11] MEDS ORDERED: PANTOPRAZOLE SODIUM 40 MG VIAL ONE (13:53)
[2020-04-11] MEDS ORDERED: SODIUM ZIRCONIUM CYCLOSILICATE (LOKELMA) 5 GM PACKET PO ONE (14:45)
[2020-04-11] MEDS ORDERED: GABAPENTIN 100 MG CAPSULE ONE (16:23)
[2020-04-11] MEDS ORDERED: SODIUM ZIRCONIUM CYCLOSILICATE (LOKELMA) 5 GM PACKET ONE (16:23)
[2020-04-11] MEDS: ROSUVASTATIN CA 10 MG TABLET PO SCH (21:58)
[2020-04-12] MEDS ORDERED: amLODIPine BESYLATE 5 MG TABLET (FP) PO ONE ×2 (04:09→19:51)
[2020-04-12] MEDS: GABAPENTIN 400 MG CAPSULE PO SCH ×3 (06:27→21:43)
[2020-04-12] MEDS: FUROSEMIDE 40 MG/4 ML INJECTABLE VIAL IVPUSH SCH ×2 (06:27→15:13)
[2020-04-12] MEDS: INSULIN SLIDING SCALE (NOVOLOG) 1 VIAL SQ SCH ×4 (06:27→21:59)
[2020-04-12] MEDS: SODIUM BICARBONATE 650 MG TABLET PO SCH (06:27)
[2020-04-12] MEDS: ZINC SULFATE 220 MG CAPSULE (FP) PO SCH (10:06)
[2020-04-12] MEDS: ASPIRIN 81 MG CHEWABLE TABLETS PO SCH (10:08)
[2020-04-12] MEDS: FAMOTIDINE 20 MG TABLET PO SCH (10:08)
[2020-04-12] MEDS: metoPROLOL SUCCINATE 25 MG TAB.SR.24H (FP) PO SCH ×3 (10:08→21:43)
[2020-04-12] MEDS: ASCORBIC ACID 250 MG TABLET (FP) PO SCH (10:08)
[2020-04-12] MEDS ORDERED: PANTOPRAZOLE 40 MG TABLET PO SCH (10:45)
[2020-04-12 11:19] LABS: BASO % 0.7 % (0-2.0); EOS % 5.6 % (0-4.5); HEMATOCRIT 20.3 % (32.4-45.2); LYMPH % 24.8 % (8-40); MCH 29.6 pg (25.7-33.7); MCHC 30.9 g/dl (32.0-36.0); MEAN CELL VOLUME 95.8 fl (80-96); MEAN PLT VOLUME 9.4 fl (7.5-11.1); MONO % 9.7 % (3.8-10.2); NEUT % 59.2 % (42.8-82.8); PLATELET COUNT 167 K/MM3 (134-434); RBC 2.12 M/mm3 (3.60-5.2); RDW 16.7 % (11.6-15.6); WHITE BLOOD COUNT 3.7 K/mm3 (4.0-10.0)
[2020-04-12 11:25] LABS: HEMOGLOBIN 6.3 GM/dL (10.7-15.3)
[2020-04-12 11:39] LABS: CALCIUM 8.6 mg/dL (8.5-10.1)
[2020-04-12 11:40] LABS: ALBUMIN 1.9 g/dl (3.4-5.0); BLOOD UREA NITROGEN 62.8 mg/dL (7-18)
[2020-04-12 11:43] LABS: CREATININE 5.4 mg/dL (0.55-1.3)
[2020-04-12 11:45] LABS: BILIRUBIN,TOTAL 0.9 mg/dL (0.2-1); TOT PROT 5.8 g/dl (6.4-8.2)
[2020-04-12] MEDS ORDERED: IRON SUCROSE INJECTION 100 MG in SODIUM CHLORIDE 95 ML IVPB ONE (12:42)
[2020-04-12 13:33] VITALS: BMI 26.3
[2020-04-12] MEDS: ROSUVASTATIN CA 10 MG TABLET PO SCH (21:43)
[2020-04-13] MEDS: FUROSEMIDE 40 MG/4 ML INJECTABLE VIAL IVPUSH SCH (06:28)
[2020-04-13] MEDS: GABAPENTIN 400 MG CAPSULE PO SCH ×3 (06:28→21:06)
[2020-04-13] MEDS: INSULIN SLIDING SCALE (NOVOLOG) 1 VIAL SQ SCH ×4 (06:49→21:13)
[2020-04-13] MEDS: ASCORBIC ACID 250 MG TABLET (FP) PO SCH (10:59)
[2020-04-13] MEDS: ZINC SULFATE 220 MG CAPSULE (FP) PO SCH (10:59)
[2020-04-13] MEDS: metoPROLOL SUCCINATE 25 MG TAB.SR.24H (FP) PO SCH ×2 (10:59→21:07)
[2020-04-13] MEDS: ASPIRIN 81 MG CHEWABLE TABLETS PO SCH (10:59)
[2020-04-13] MEDS: PANTOPRAZOLE 40 MG TABLET PO SCH (10:59)
[2020-04-13 11:45] LABS: BASO % 0.4 % (0-2.0); EOS % 4.3 % (0-4.5); HEMATOCRIT 26.2 % (32.4-45.2); HEMOGLOBIN 8.4 GM/dL (10.7-15.3); LYMPH % 19.3 % (8-40); MCH 29.2 pg (25.7-33.7); MEAN CELL VOLUME 91.2 fl (80-96); MEAN PLT VOLUME 9.1 fl (7.5-11.1); MONO % 8.9 % (3.8-10.2); NEUT % 67.1 % (42.8-82.8); PLATELET COUNT 191 K/MM3 (134-434); RBC 2.87 M/mm3 (3.60-5.2); RDW 18.7 % (11.6-15.6); WHITE BLOOD COUNT 5.5 K/mm3 (4.0-10.0)
[2020-04-13 12:09] LABS: ALBUMIN 2.2 g/dl (3.4-5.0); BLOOD UREA NITROGEN 58.6 mg/dL (7-18); CALCIUM 8.6 mg/dL (8.5-10.1)
[2020-04-13 12:12] LABS: CREATININE 5.2 mg/dL (0.55-1.3)
[2020-04-13 12:14] LABS: BILIRUBIN,TOTAL 0.7 mg/dL (0.2-1); TOT PROT 6.6 g/dl (6.4-8.2)
[2020-04-13] MEDS: amLODIPine BESYLATE 10 MG TABLET (FP) PO SCH (13:51)
[2020-04-13] MEDS: ROSUVASTATIN CA 10 MG TABLET PO SCH (21:06)
[2020-04-14] MEDS: GABAPENTIN 400 MG CAPSULE PO SCH ×3 (06:07→21:48)
[2020-04-14] MEDS: INSULIN SLIDING SCALE (NOVOLOG) 1 VIAL SQ SCH ×4 (06:30→21:50)
[2020-04-14] MEDS ORDERED: PT OWN MED DRAWER 7, Y5N ONE ×2 (09:02→17:20)
[2020-04-14] MEDS: DARUNAVIR ETHANOLATE 600 MG TAB PO SCH ×2 (09:36→17:33)
[2020-04-14] MEDS: amLODIPine BESYLATE 10 MG TABLET (FP) PO SCH (09:37)
[2020-04-14] MEDS: metoPROLOL SUCCINATE 25 MG TAB.SR.24H (FP) PO SCH ×2 (09:37→21:48)
[2020-04-14] MEDS: ASCORBIC ACID 250 MG TABLET (FP) PO SCH (09:37)
[2020-04-14] MEDS: RALTEGRAVIR POTASSIUM 400 MG TAB PO SCH ×2 (09:37→17:33)
[2020-04-14] MEDS: PANTOPRAZOLE 40 MG TABLET PO SCH (09:37)
[2020-04-14] MEDS: ASPIRIN 81 MG CHEWABLE TABLETS PO SCH (09:38)
[2020-04-14] MEDS: ETRAVIRINE 100 MG TABLET PO SCH ×2 (09:38→17:33)
[2020-04-14] MEDS: ZINC SULFATE 220 MG CAPSULE (FP) PO SCH (09:38)
[2020-04-14] MEDS: RITONAVIR 100 MG TABLET PO SCH ×2 (09:39→17:34)
[2020-04-14] MEDS ORDERED: FUROSEMIDE 40 MG/4 ML INJECTABLE VIAL IVPUSH SCH (10:00)
[2020-04-14] MEDS ORDERED: SEVELAMER CARBONATE 800 MG TAB (FP) PO SCH (17:30)
[2020-04-14] MEDS: ROSUVASTATIN CA 10 MG TABLET PO SCH (21:48)
[2020-04-15] MEDS: GABAPENTIN 400 MG CAPSULE PO SCH ×3 (06:15→21:28)
[2020-04-15] MEDS: INSULIN SLIDING SCALE (NOVOLOG) 1 VIAL SQ SCH ×4 (06:23→21:36)
[2020-04-15] MEDS ORDERED: PT OWN MED DRAWER 7, Y5N ONE ×3 (08:18→17:33)
[2020-04-15 08:28] LABS: BASO % 0.7 % (0-2.0); EOS % 4.9 % (0-4.5); HEMATOCRIT 26.3 % (32.4-45.2); HEMOGLOBIN 8.5 GM/dL (10.7-15.3); LYMPH % 31.3 % (8-40); MCH 29.6 pg (25.7-33.7); MCHC 32.1 g/dl (32.0-36.0); MEAN CELL VOLUME 92.1 fl (80-96); MEAN PLT VOLUME 8.9 fl (7.5-11.1); MONO % 9.8 % (3.8-10.2); NEUT % 53.3 % (42.8-82.8); PLATELET COUNT 163 K/MM3 (134-434); RBC 2.86 M/mm3 (3.60-5.2); RDW 18.4 % (11.6-15.6)
[2020-04-15] MEDS: SEVELAMER CARBONATE 800 MG TAB (FP) PO SCH ×3 (08:38→17:39)
[2020-04-15 08:44] LABS: BILIRUBIN,TOTAL 0.3 mg/dL (0.2-1); BLOOD UREA NITROGEN 63.8 mg/dL (7-18); CALCIUM 8.1 mg/dL (8.5-10.1); CREATININE 6.2 mg/dL (0.55-1.3); PHOSPHOROUS 5.5 mg/dL (2.5-4.9); TOT PROT 6.1 g/dl (6.4-8.2)
[2020-04-15] MEDS ORDERED: FUROSEMIDE 40 MG/4 ML INJECTABLE VIAL IVPUSH SCH (10:00)
[2020-04-15] MEDS: ETRAVIRINE 100 MG TABLET PO SCH ×2 (10:17→17:41)
[2020-04-15] MEDS: RALTEGRAVIR POTASSIUM 400 MG TAB PO SCH ×2 (10:17→17:42)
[2020-04-15] MEDS: RITONAVIR 100 MG TABLET PO SCH ×2 (10:18→17:43)
[2020-04-15] MEDS: DARUNAVIR ETHANOLATE 600 MG TAB PO SCH ×2 (10:18→17:43)
[2020-04-15] MEDS: ASPIRIN 81 MG CHEWABLE TABLETS PO SCH (10:19)
[2020-04-15] MEDS: PANTOPRAZOLE 40 MG TABLET PO SCH (10:21)
[2020-04-15] MEDS: amLODIPine BESYLATE 10 MG TABLET (FP) PO SCH (10:21)
[2020-04-15] MEDS: ZINC SULFATE 220 MG CAPSULE (FP) PO SCH (10:21)
[2020-04-15] MEDS: metoPROLOL SUCCINATE 25 MG TAB.SR.24H (FP) PO SCH ×2 (10:21→21:28)
[2020-04-15] MEDS: ASCORBIC ACID 250 MG TABLET (FP) PO SCH (10:27)
[2020-04-15] MEDS ORDERED: ROSUVASTATIN CA 10 MG TABLET PO SCH (22:00)
[2020-04-16] MEDS: GABAPENTIN 400 MG CAPSULE PO SCH ×2 (06:13→14:12)
[2020-04-16] MEDS: INSULIN SLIDING SCALE (NOVOLOG) 1 VIAL SQ SCH ×2 (06:19→11:32)
[2020-04-16] MEDS ORDERED: PT OWN MED DRAWER 7, Y5N ONE ×2 (08:43→09:08)
[2020-04-16] MEDS: RITONAVIR 100 MG TABLET PO SCH (08:49)
[2020-04-16] MEDS: ETRAVIRINE 100 MG TABLET PO SCH (08:49)
[2020-04-16] MEDS: SEVELAMER CARBONATE 800 MG TAB (FP) PO SCH ×2 (08:50→11:44)
[2020-04-16] MEDS: DARUNAVIR ETHANOLATE 600 MG TAB PO SCH (08:50)
[2020-04-16] MEDS: RALTEGRAVIR POTASSIUM 400 MG TAB PO SCH (08:51)
[2020-04-16] MEDS: ASCORBIC ACID 250 MG TABLET (FP) PO SCH (09:17)
[2020-04-16] MEDS: ZINC SULFATE 220 MG CAPSULE (FP) PO SCH (09:18)
[2020-04-16] MEDS: amLODIPine BESYLATE 10 MG TABLET (FP) PO SCH (09:18)
[2020-04-16] MEDS: ASPIRIN 81 MG CHEWABLE TABLETS PO SCH (09:18)
[2020-04-16] MEDS: PANTOPRAZOLE 40 MG TABLET PO SCH (09:19)
[2020-04-16] MEDS: metoPROLOL SUCCINATE 25 MG TAB.SR.24H (FP) PO SCH (09:19)
[2020-04-16] MEDS ORDERED: FUROSEMIDE 40 MG TABLET (FP) PO SCH (10:00)
[2020-04-16 13:55] VITALS: BP 149/95; PULSE 82; TEMP 98.1
== END 2020-04-16 15:31 | disposition home or self-care (01) | DRG 291 ==
LOC: JER 15:33 → JERBED 21:33 → J4W 04-11 18:26 → J6S 04-14 23:44
PROVIDERS: ADMIT Internal Medicine; ATTEND Student in an Organized Health Care Education/Training Program
PROC: 05HD33Z Insertion of Infusion Device into Right Cephalic Vein, Percutaneous Approach (ICD-10-PCS; principal; 2020-04-12)
PROC: B54MZZA Ultrasonography of Right Upper Extremity Veins, Guidance (ICD-10-PCS; 2020-04-12)
DX: I13.2 Hypertensive heart and chronic kidney disease with heart failure and with stage 5 chronic kidney disease, or end stage renal disease (principal); N18.6 End stage renal disease; I50.23 Acute on chronic systolic (congestive) heart failure; J96.01 Acute respiratory failure with hypoxia; I69.151 Hemiplegia and hemiparesis following nontraumatic intracerebral hemorrhage affecting right dominant side; J98.11 Atelectasis; K92.2 Gastrointestinal hemorrhage, unspecified; I25.10 Atherosclerotic heart disease of native coronary artery without angina pectoris; E78.5 Hyperlipidemia, unspecified; F03.90 Unspecified dementia, unspecified severity, without behavioral disturbance, psychotic disturbance, mood disturbance, and anxiety; D64.9 Anemia, unspecified; I10 Essential (primary) hypertension; E11.22 Type 2 diabetes mellitus with diabetic chronic kidney disease; R00.0 Tachycardia, unspecified; F41.9 Anxiety disorder, unspecified; I44.0 Atrioventricular block, first degree; E66.9 Obesity, unspecified; Z68.24 Body mass index [BMI] 24.0-24.9, adult; Z21 Asymptomatic human immunodeficiency virus [HIV] infection status; D63.1 Anemia in chronic kidney disease; I16.0 Hypertensive urgency; Z86.718 Personal history of other venous thrombosis and embolism; Z95.5 Presence of coronary angioplasty implant and graft; Z74.01 Bed confinement status
CPT/HCPCS: 36415; 36430; 71045-TC-FY; 71250-TC; 80048; 80053; 80061; 81003; 82272; 82550; 82607; 82728; 82746; 82803; 82962; 83036; 83540; 83550; 83615; 83721; 83735; 83880; 84100; 84443; 84484; 85025; 85379; 85610; 85730; 86140; 86850; 86900; 86901; 86922; 93005; 93010; 93306-TC; 94660; 97116-GP; 97161-GP; 99285-25; C9803; J1644; J1756; P9058; U0003

== ENCOUNTER 2020-04-24 14:35 | Inpatient (IN) | payer OTHER ==
[2020-04-24 15:11] VITALS: BMI 29.8
[2020-04-24 16:10] LABS: EOS % 5.7 % (0-4.5); HEMATOCRIT 23.2 % (32.4-45.2); HEMOGLOBIN 7.5 GM/dL (10.7-15.3); LYMPH % 21.7 % (8-40); MCH 29.3 pg (25.7-33.7); MCHC 32.2 g/dl (32.0-36.0); MEAN CELL VOLUME 90.9 fl (80-96); MEAN PLT VOLUME 9.1 fl (7.5-11.1); MONO % 7.6 % (3.8-10.2); PLATELET COUNT 269 K/MM3 (134-434); RBC 2.55 M/mm3 (3.60-5.2); RDW 17.2 % (11.6-15.6); WHITE BLOOD COUNT 5.8 K/mm3 (4.0-10.0)
[2020-04-24 16:16] LABS: INR 1.33 (0.83-1.09)
[2020-04-24 16:19] LABS: ACTIVATED PTT 39.6 SECONDS (25.2-36.5)
[2020-04-24] MEDS: ACETAMINOPHEN 1000 MG/100 ML BAG IVPB ONE ×2 (16:26→17:34)
[2020-04-24] MEDS ORDERED: ACETAMINOPHEN INJECTION 100 ML IVPB ONE (16:27)
[2020-04-24 16:30] LABS: CHLORIDE 104 mmol/L (98-107); SODIUM 136 mmol/L (136-145)
[2020-04-24 16:32] LABS: ALBUMIN 2.1 g/dl (3.4-5.0); BLOOD UREA NITROGEN 82.8 mg/dL (7-18); CALCIUM 7.9 mg/dL (8.5-10.1); CO2 24 mmol/L (21-32); GLUCOSE,RANDOM 116 mg/dL (74-106); MAGNESIUM 2.3 mg/dL (1.8-2.4)
[2020-04-24 16:35] LABS: CREATININE 5.7 mg/dL (0.55-1.3); SGOT/AST 15 U/L (15-37); SGPT/ALT 11 U/L (13-61)
[2020-04-24 16:36] LABS: PHOSPHOROUS 5.4 mg/dL (2.5-4.9)
[2020-04-24 16:37] LABS: BILIRUBIN,TOTAL 0.4 mg/dL (0.2-1); TOT PROT 6.5 g/dl (6.4-8.2)
[2020-04-24 16:38] LABS: ALK PHOS 86 U/L (45-117)
[2020-04-24 16:40] LABS: N-TERMINAL BNP 24239.6 pg/ml (5-125)
[2020-04-24 16:43] LABS: ANION GAP 8 MMOL/L (8-16)
[2020-04-24] MEDS ORDERED: FUROSEMIDE 40 MG/4 ML INJECTABLE VIAL IVPUSH ONE (16:46)
[2020-04-24] MEDS ORDERED: CALCIUM GLUCONATE 10% - 1,000 MG/10 ML VIAL IVPUSH ONE (16:46)
[2020-04-24] MEDS ORDERED: SODIUM BICARBONATE 8.4% 50 MEQ/50 ML DISP.SYRIN IVPUSH ONE ×2 (16:47→16:48)
[2020-04-24] MEDS ORDERED: INSULIN REGULAR HUMAN 100 UNITS/ML *VIAL IVPUSH ONE (16:47)
[2020-04-24] MEDS ORDERED: DEXTROSE 50%-WATER - 25 GM/50 ML VIAL IVPUSH ONE (16:48)
[2020-04-24] MEDS ORDERED: FUROSEMIDE 40 MG/4 ML INJECTABLE VIAL ONE (17:25)
[2020-04-24] MEDS ORDERED: DEXTROSE 50%-WATER 25 GM/50 ML DISP.SYRIN ONE (17:25)
[2020-04-24] MEDS ORDERED: CALCIUM GLUCONATE 10% - 1,000 MG/10 ML VIAL ONE (17:25)
[2020-04-24] MEDS ORDERED: SODIUM BICARBONATE 8.4% - 50 ML ONE (17:25)
[2020-04-24] MEDS ORDERED: INSULIN REGULAR HUMAN 100 UNITS/ML *VIAL ONE (17:26)
[2020-04-24 17:38] LABS: EPI CELLS 21 /uL (0-25.1); HYALINE CASTS 2 /uL (0-3.1); URINE APPEARANCE CLEAR; URINE BACTERIA 109 /uL (0-1359); URINE BILIRUBIN NEGATIVE (NEGATIVE); URINE COLOR YELLOW; URINE GLUCOSE (UA) NEGATIVE (NEGATIVE); URINE KETONE NEGATIVE (NEGATIVE); URINE LEUK ESTERASE 2+ (NEGATIVE); URINE NITRITE NEGATIVE (NEGATIVE); URINE PROTEIN 3+ (NEGATIVE); URINE RBC 193 /uL (0-23.9); URINE UROBILINOGEN 0.2 mg/dL (0.2-1.0); URINE WBC 1194 /uL (0-25.8)
[2020-04-24] MEDS ORDERED: CEFTRIAXONE 1,000 MG in DEXTROSE 5%-WATER - 50 ML IVPB ONE (17:41)
[2020-04-24] MEDS ORDERED: CEFTRIAXONE 1 GM/50 ML BAG ONE (18:13)
[2020-04-24] MEDS: RITONAVIR 100 MG TABLET PO SCH (18:22)
[2020-04-24] MEDS: DARUNAVIR ETHANOLATE 600 MG TAB PO SCH (18:22)
[2020-04-24] MEDS: RALTEGRAVIR POTASSIUM 400 MG TAB PO SCH (18:22)
[2020-04-24] MEDS: ETRAVIRINE 200 MG TABLET PO SCH (18:22)
[2020-04-24] MEDS ORDERED: metoPROLOL SUCCINATE 25 MG TAB.SR.24H (FP) ONE (22:05)
[2020-04-24] MEDS ORDERED: GABAPENTIN 100 MG CAPSULE ONE (22:05)
[2020-04-24] MEDS ORDERED: DULoxetine HCL 30 MG CAPSULE.DR PO ONE (22:06)
[2020-04-24] MEDS: DULoxetine HCL 30 MG CAPSULE.DR PO SCH (22:38)
[2020-04-24] MEDS: SODIUM BICARBONATE 650 MG TABLET PO SCH (22:38)
[2020-04-24] MEDS: metoPROLOL SUCCINATE 25 MG TAB.SR.24H (FP) PO SCH (22:38)
[2020-04-24] MEDS: GABAPENTIN 400 MG CAPSULE PO SCH (22:38)
[2020-04-25] MEDS ORDERED: GABAPENTIN 100 MG CAPSULE ONE (06:13)
[2020-04-25] MEDS: GABAPENTIN 400 MG CAPSULE PO SCH ×3 (06:43→22:26)
[2020-04-25] MEDS: SODIUM BICARBONATE 650 MG TABLET PO SCH ×3 (06:43→22:26)
[2020-04-25] MEDS ORDERED: SODIUM ZIRCONIUM CYCLOSILICATE (LOKELMA) 5 GM PACKET PO SCH ×2 (07:13→13:15)
[2020-04-25] MEDS ORDERED: SODIUM ZIRCONIUM CYCLOSILICATE (LOKELMA) 5 GM PACKET ONE (08:04)
[2020-04-25] MEDS: SEVELAMER CARBONATE 800 MG TAB (FP) PO SCH ×3 (09:00→18:07)
[2020-04-25] MEDS: ETRAVIRINE 200 MG TABLET PO SCH (09:06)
[2020-04-25] MEDS: RITONAVIR 100 MG TABLET PO SCH ×2 (09:07→18:08)
[2020-04-25] MEDS: RALTEGRAVIR POTASSIUM 400 MG TAB PO SCH ×2 (09:07→18:07)
[2020-04-25] MEDS: DARUNAVIR ETHANOLATE 600 MG TAB PO SCH ×2 (09:07→18:07)
[2020-04-25] MEDS: DULoxetine HCL 30 MG CAPSULE.DR PO SCH ×2 (09:09→22:26)
[2020-04-25] MEDS: metoPROLOL SUCCINATE 25 MG TAB.SR.24H (FP) PO SCH ×2 (09:09→22:26)
[2020-04-25] MEDS ORDERED: ASCORBIC ACID 500 MG TABLET (FP) ONE (09:10)
[2020-04-25] MEDS ORDERED: ZINC SULFATE 220 MG CAPSULE (FP) ONE (09:10)
[2020-04-25] MEDS ORDERED: PANTOPRAZOLE 40 MG TABLET ONE (09:10)
[2020-04-25] MEDS ORDERED: metoPROLOL SUCCINATE 25 MG TAB.SR.24H (FP) ONE (09:10)
[2020-04-25] MEDS ORDERED: DULoxetine HCL 30 MG CAPSULE.DR PO ONE (09:11)
[2020-04-25] MEDS ORDERED: ZINC SULFATE 220 MG CAPSULE (FP) PO SCH (10:00)
[2020-04-25] MEDS ORDERED: ASCORBIC ACID 250 MG TABLET (FP) PO SCH (10:00)
[2020-04-25] MEDS ORDERED: PANTOPRAZOLE 40 MG TABLET PO SCH (10:00)
[2020-04-25] MEDS ORDERED: FAMOTIDINE 20 MG TABLET PO SCH (10:00)
[2020-04-25] MEDS ORDERED: amLODIPine BESYLATE 10 MG TABLET (FP) PO SCH (10:00)
[2020-04-25] MEDS ORDERED: ROSUVASTATIN CA 20 MG TABLET PO SCH (10:00)
[2020-04-25] MEDS ORDERED: FUROSEMIDE 40 MG/4 ML INJECTABLE VIAL IVPB ONE (11:22)
[2020-04-25 11:57] LABS: EOS % 6.2 % (0-4.5); HEMATOCRIT 26.5 % (32.4-45.2); HEMOGLOBIN 8.8 GM/dL (10.7-15.3); LYMPH % 17.4 % (8-40); MCH 29.5 pg (25.7-33.7); MCHC 33.4 g/dl (32.0-36.0); MEAN CELL VOLUME 88.3 fl (80-96); MEAN PLT VOLUME 8.7 fl (7.5-11.1); MONO % 7.6 % (3.8-10.2); NEUT % 67.8 % (42.8-82.8); PLATELET COUNT 234 K/MM3 (134-434); RDW 17.1 % (11.6-15.6)
[2020-04-25 12:00] LABS: INR 1.18 (0.83-1.09); PROTHROMBIN TIME (PATIENT) 14.4 SEC (9.7-13.0)
[2020-04-25 12:16] LABS: CALCIUM 8.2 mg/dL (8.5-10.1)
[2020-04-25 12:17] LABS: ALBUMIN 2.1 g/dl (3.4-5.0); BLOOD UREA NITROGEN 79.3 mg/dL (7-18)
[2020-04-25 12:20] LABS: CREATININE 5.9 mg/dL (0.55-1.3)
[2020-04-25 12:22] LABS: BILIRUBIN,TOTAL 0.5 mg/dL (0.2-1); TOT PROT 6.4 g/dl (6.4-8.2)
[2020-04-25] MEDS ORDERED: LIDOCAINE HCL 1%, 10 MG/ML (20ML VIAL) ONE (14:00)
[2020-04-25] MEDS ORDERED: FUROSEMIDE 40 MG/4 ML INJECTABLE VIAL IVPUSH SCH (14:00)
[2020-04-25] MEDS ORDERED: HEPARIN NA (PORCINE) 5,000 UNITS/ML 1ML VIAL ONE (14:00)
[2020-04-25] MEDS ORDERED: PROPOFOL 20 ML ONE (15:00)
[2020-04-25] MEDS ORDERED: ceFAZolin SODIUM 1 GM VIAL ONE (15:20)
[2020-04-25] MEDS ORDERED: ceFAZolin SODIUM 1 GM VIAL IVPB ONE (15:20)
[2020-04-25] MEDS ORDERED: LIDOCAINE HCL 1%, 10 MG/ML (20ML VIAL) NR ONE (15:28)
[2020-04-25] MEDS ORDERED: ONDANSETRON 4 MG/2 ML VIAL IVPUSH PRN (16:32)
[2020-04-25] MEDS ORDERED: PT OWN MED DRAWER 7, Y5N ONE ×2 (18:05→22:01)
[2020-04-26] MEDS: ETRAVIRINE 200 MG TABLET PO SCH ×3 (06:51→17:41)
[2020-04-26] MEDS: GABAPENTIN 400 MG CAPSULE PO SCH ×3 (06:52→22:20)
[2020-04-26] MEDS: FUROSEMIDE 40 MG/4 ML INJECTABLE VIAL IVPUSH SCH ×2 (06:52→13:35)
[2020-04-26] MEDS: SODIUM BICARBONATE 650 MG TABLET PO SCH ×3 (06:52→22:20)
[2020-04-26 07:51] LABS: BASO % 0.7 % (0-2.0); EOS % 4.7 % (0-4.5); HEMATOCRIT 30.1 % (32.4-45.2); HEMOGLOBIN 9.9 GM/dL (10.7-15.3); MCH 29.3 pg (25.7-33.7); MCHC 32.9 g/dl (32.0-36.0); MEAN PLT VOLUME 8.7 fl (7.5-11.1); MONO % 10.6 % (3.8-10.2); PLATELET COUNT 240 K/MM3 (134-434); RBC 3.38 M/mm3 (3.60-5.2); RDW 17.1 % (11.6-15.6); WHITE BLOOD COUNT 6.2 K/mm3 (4.0-10.0)
[2020-04-26] MEDS ORDERED: PT OWN MED DRAWER 7, Y5N ONE ×7 (07:54→22:26)
[2020-04-26 08:22] LABS: ALBUMIN 2.1 g/dl (3.4-5.0); BILIRUBIN,TOTAL 0.2 mg/dL (0.2-1); BLOOD UREA NITROGEN 75.5 mg/dL (7-18); CALCIUM 8.4 mg/dL (8.5-10.1); TOT PROT 6.3 g/dl (6.4-8.2)
[2020-04-26] MEDS ORDERED: SODIUM CHLORIDE 250 ML IV PRN (08:24)
[2020-04-26] MEDS: SEVELAMER CARBONATE 800 MG TAB (FP) PO SCH ×3 (09:03→18:05)
[2020-04-26] MEDS ORDERED: FAMOTIDINE 20 MG TABLET PO SCH (10:00)
[2020-04-26] MEDS ORDERED: ROSUVASTATIN CA 20 MG TABLET PO SCH (10:00)
[2020-04-26] MEDS: RALTEGRAVIR POTASSIUM 400 MG TAB PO SCH ×2 (10:22→17:39)
[2020-04-26] MEDS: metoPROLOL SUCCINATE 25 MG TAB.SR.24H (FP) PO SCH ×2 (10:23→22:20)
[2020-04-26] MEDS: DULoxetine HCL 30 MG CAPSULE.DR PO SCH ×2 (10:23→22:20)
[2020-04-26] MEDS: DARUNAVIR ETHANOLATE 600 MG TAB PO SCH ×2 (10:23→17:40)
[2020-04-26] MEDS: amLODIPine BESYLATE 10 MG TABLET (FP) PO SCH (10:23)
[2020-04-26] MEDS: RITONAVIR 100 MG TABLET PO SCH ×2 (10:23→17:40)
[2020-04-26] MEDS: SODIUM ZIRCONIUM CYCLOSILICATE (LOKELMA) 5 GM PACKET PO SCH (11:32)
[2020-04-26] MEDS: PANTOPRAZOLE 40 MG TABLET PO SCH (11:32)
[2020-04-26] MEDS: ZINC SULFATE 220 MG CAPSULE (FP) PO SCH (11:32)
[2020-04-26] MEDS: ASCORBIC ACID 250 MG TABLET (FP) PO SCH (11:33)
[2020-04-26 22:06] LABS: HEP B CORE AB, TOT Positive (Negative)
[2020-04-26] MEDS: SACUBITRIL/VALSARTAN 24 MG-26 MG TABLET PO SCH (22:20)
[2020-04-27] MEDS: SODIUM BICARBONATE 650 MG TABLET PO SCH ×3 (07:41→21:24)
[2020-04-27] MEDS: GABAPENTIN 400 MG CAPSULE PO SCH ×3 (07:41→21:25)
[2020-04-27] MEDS: SEVELAMER CARBONATE 800 MG TAB (FP) PO SCH ×3 (07:41→17:01)
[2020-04-27 08:08] LABS: BASO % 0.7 % (0-2.0); HEMATOCRIT 22.9 % (32.4-45.2); HEMOGLOBIN 7.5 GM/dL (10.7-15.3); LYMPH % 18.7 % (8-40); MCH 29.5 pg (25.7-33.7); MCHC 32.8 g/dl (32.0-36.0); MEAN CELL VOLUME 89.7 fl (80-96); MEAN PLT VOLUME 8.8 fl (7.5-11.1); NEUT % 68.6 % (42.8-82.8); PLATELET COUNT 201 K/MM3 (134-434); RBC 2.55 M/mm3 (3.60-5.2); RDW 16.6 % (11.6-15.6); WHITE BLOOD COUNT 4.9 K/mm3 (4.0-10.0)
[2020-04-27 08:26] LABS: ALBUMIN 1.9 g/dl (3.4-5.0); CALCIUM 7.8 mg/dL (8.5-10.1)
[2020-04-27 08:29] LABS: CREATININE 4.2 mg/dL (0.55-1.3)
[2020-04-27 08:30] LABS: BILIRUBIN,TOTAL 0.3 mg/dL (0.2-1); PHOSPHOROUS 3.4 mg/dL (2.5-4.9); TOT PROT 5.8 g/dl (6.4-8.2)
[2020-04-27 08:47] LABS: BLOOD UREA NITROGEN 40.8 mg/dL (7-18)
[2020-04-27] MEDS: ETRAVIRINE 200 MG TABLET PO SCH ×2 (09:05→18:38)
[2020-04-27] MEDS: DARUNAVIR ETHANOLATE 600 MG TAB PO SCH ×2 (09:05→18:52)
[2020-04-27] MEDS: RITONAVIR 100 MG TABLET PO SCH ×2 (09:05→18:40)
[2020-04-27] MEDS: RALTEGRAVIR POTASSIUM 400 MG TAB PO SCH ×2 (09:06→18:39)
[2020-04-27] MEDS: SACUBITRIL/VALSARTAN 24 MG-26 MG TABLET PO SCH ×2 (09:07→21:59)
[2020-04-27] MEDS: ASCORBIC ACID 250 MG TABLET (FP) PO SCH (09:08)
[2020-04-27] MEDS: FUROSEMIDE 40 MG TABLET (FP) PO SCH (09:08)
[2020-04-27] MEDS: DULoxetine HCL 30 MG CAPSULE.DR PO SCH ×2 (09:08→21:24)
[2020-04-27] MEDS: amLODIPine BESYLATE 10 MG TABLET (FP) PO SCH (09:08)
[2020-04-27] MEDS: ZINC SULFATE 220 MG CAPSULE (FP) PO SCH (09:08)
[2020-04-27] MEDS: metoPROLOL SUCCINATE 25 MG TAB.SR.24H (FP) PO SCH ×2 (09:08→21:24)
[2020-04-27] MEDS: SODIUM ZIRCONIUM CYCLOSILICATE (LOKELMA) 5 GM PACKET PO SCH (09:09)
[2020-04-27] MEDS: PANTOPRAZOLE 40 MG TABLET PO SCH (09:09)
[2020-04-27] MEDS ORDERED: SODIUM CHLORIDE 250 ML IV PRN (11:37)
[2020-04-27] MEDS ORDERED: PT OWN MED DRAWER 7, Y5N ONE ×4 (12:44→20:58)
[2020-04-28] MEDS: GABAPENTIN 400 MG CAPSULE PO SCH ×3 (06:09→21:01)
[2020-04-28] MEDS: SODIUM BICARBONATE 650 MG TABLET PO SCH ×3 (06:09→21:01)
[2020-04-28 08:09] LABS: CHLORIDE 106 mmol/L (98-107); SODIUM 142 mmol/L (136-145)
[2020-04-28 08:12] LABS: ANION GAP 8 MMOL/L (8-16); CO2 28 mmol/L (21-32)
[2020-04-28 08:13] LABS: BASO % 0.7 % (0-2.0); BLOOD UREA NITROGEN 38.3 mg/dL (7-18); EOS % 4.7 % (0-4.5); GLUCOSE,RANDOM 106 mg/dL (74-106); HEMATOCRIT 26.5 % (32.4-45.2); HEMOGLOBIN 8.8 GM/dL (10.7-15.3); LYMPH % 25.1 % (8-40); MCH 29.6 pg (25.7-33.7); MCHC 33.3 g/dl (32.0-36.0); MEAN CELL VOLUME 88.9 fl (80-96); MEAN PLT VOLUME 8.3 fl (7.5-11.1); MONO % 8.2 % (3.8-10.2); NEUT % 61.3 % (42.8-82.8); PLATELET COUNT 237 K/MM3 (134-434); RBC 2.98 M/mm3 (3.60-5.2); RDW 16.7 % (11.6-15.6); WHITE BLOOD COUNT 4.4 K/mm3 (4.0-10.0)
[2020-04-28 08:16] LABS: CREATININE 4.4 mg/dL (0.55-1.3); SGOT/AST 10 U/L (15-37)
[2020-04-28 08:17] LABS: BILIRUBIN,TOTAL 0.4 mg/dL (0.2-1)
[2020-04-28 08:19] LABS: ALK PHOS 74 U/L (45-117)
[2020-04-28 08:20] LABS: SGPT/ALT < 6 U/L (13-61)
[2020-04-28] MEDS ORDERED: ETRAVIRINE 100 MG TABLET PO SCH (09:00)
[2020-04-28] MEDS: metoPROLOL SUCCINATE 25 MG TAB.SR.24H (FP) PO SCH ×2 (10:15→21:01)
[2020-04-28] MEDS: amLODIPine BESYLATE 10 MG TABLET (FP) PO SCH (10:15)
[2020-04-28] MEDS ORDERED: PROPOFOL 20 ML ONE (10:19)
[2020-04-28] MEDS ORDERED: LIDOCAINE HCL 1%, 10 MG/ML (20ML VIAL) ONE (10:57)
[2020-04-28] MEDS ORDERED: HEPARIN NA (PORCINE) 5,000 UNITS/ML 1ML VIAL ONE (10:57)
[2020-04-28] MEDS ORDERED: ceFAZolin SODIUM 1 GM VIAL IVPB ONE (11:35)
[2020-04-28] MEDS ORDERED: LIDOCAINE HCL 1%, 10 MG/ML (20ML VIAL) NR ONE (11:47)
[2020-04-28] MEDS ORDERED: LIDOCAINE HCL 1%, 10 MG/ML (20ML VIAL) INF ONE (11:47)
[2020-04-28] MEDS ORDERED: POVIDONE-IODINE OINTMENT 10% - 28.4 GM TUBE ONE (12:43)
[2020-04-28] MEDS ORDERED: POVIDONE-IODINE OINTMENT 10% - 28.4 GM TUBE TP ONE (12:45)
[2020-04-28] MEDS ORDERED: ONDANSETRON 4 MG/2 ML VIAL IVPUSH PRN ×2 (13:08→13:13)
[2020-04-28] MEDS ORDERED: SODIUM CHLORIDE 250 ML IV PRN (13:13)
[2020-04-28] MEDS ORDERED: SODIUM CHLORIDE 1,000 ML IV SCH (13:15)
[2020-04-28] MEDS ORDERED: PT OWN MED DRAWER 7, Y5N ONE ×3 (15:37→20:57)
[2020-04-28] MEDS: RALTEGRAVIR POTASSIUM 400 MG TAB PO SCH ×2 (15:50→17:38)
[2020-04-28] MEDS: SEVELAMER CARBONATE 800 MG TAB (FP) PO SCH ×2 (15:50→17:38)
[2020-04-28] MEDS: RITONAVIR 100 MG TABLET PO SCH ×2 (15:50→17:38)
[2020-04-28] MEDS: SODIUM ZIRCONIUM CYCLOSILICATE (LOKELMA) 5 GM PACKET PO SCH (15:51)
[2020-04-28] MEDS: DARUNAVIR ETHANOLATE 600 MG TAB PO SCH ×2 (15:51→17:37)
[2020-04-28] MEDS: SACUBITRIL/VALSARTAN 24 MG-26 MG TABLET PO SCH ×2 (15:51→21:01)
[2020-04-28] MEDS: FUROSEMIDE 40 MG TABLET (FP) PO SCH (15:51)
[2020-04-28] MEDS: DULoxetine HCL 30 MG CAPSULE.DR PO SCH ×2 (15:51→21:01)
[2020-04-28] MEDS: ZINC SULFATE 220 MG CAPSULE (FP) PO SCH (15:52)
[2020-04-28] MEDS: PANTOPRAZOLE 40 MG TABLET PO SCH (15:52)
[2020-04-28] MEDS: ASCORBIC ACID 250 MG TABLET (FP) PO SCH (15:52)
[2020-04-28] MEDS: ETRAVIRINE 100 MG TABLET PO SCH (17:38)
[2020-04-29] MEDS: SODIUM BICARBONATE 650 MG TABLET PO SCH ×2 (06:11→15:16)
[2020-04-29] MEDS: GABAPENTIN 400 MG CAPSULE PO SCH ×2 (06:11→15:16)
[2020-04-29] MEDS ORDERED: PT OWN MED DRAWER 7, Y5N ONE ×6 (06:34→21:25)
[2020-04-29 07:37] LABS: BASO % 0.7 % (0-2.0); EOS % 4.2 % (0-4.5); HEMATOCRIT 27.1 % (32.4-45.2); HEMOGLOBIN 8.8 GM/dL (10.7-15.3); LYMPH % 21.2 % (8-40); MCH 29.5 pg (25.7-33.7); MCHC 32.6 g/dl (32.0-36.0); MEAN CELL VOLUME 90.6 fl (80-96); MONO % 8.1 % (3.8-10.2); NEUT % 65.8 % (42.8-82.8); PLATELET COUNT 212 K/MM3 (134-434); RBC 2.99 M/mm3 (3.60-5.2); WHITE BLOOD COUNT 5.3 K/mm3 (4.0-10.0)
[2020-04-29 08:07] LABS: CALCIUM 7.8 mg/dL (8.5-10.1)
[2020-04-29 08:10] LABS: ALBUMIN 2.1 g/dl (3.4-5.0); BLOOD UREA NITROGEN 29.7 mg/dL (7-18)
[2020-04-29 08:11] LABS: MAGNESIUM 1.4 mg/dL (1.8-2.4)
[2020-04-29 08:13] LABS: CREATININE 3.7 mg/dL (0.55-1.3); PHOSPHOROUS 3.5 mg/dL (2.5-4.9)
[2020-04-29 08:14] LABS: BILIRUBIN,TOTAL 0.5 mg/dL (0.2-1); TOT PROT 6.4 g/dl (6.4-8.2)
[2020-04-29] MEDS: SEVELAMER CARBONATE 800 MG TAB (FP) PO SCH ×3 (08:30→16:45)
[2020-04-29] MEDS ORDERED: ACETAMINOPHEN 500 MG TABLET (FP) PO PRN (08:36)
[2020-04-29] MEDS ORDERED: FUROSEMIDE 40 MG TABLET (FP) PO SCH (10:00)
[2020-04-29] MEDS ORDERED: FAMOTIDINE 20 MG TABLET PO SCH (10:00)
[2020-04-29] MEDS ORDERED: ROSUVASTATIN CA 20 MG TABLET PO SCH (10:00)
[2020-04-29] MEDS: ETRAVIRINE 100 MG TABLET PO SCH ×2 (10:05→18:04)
[2020-04-29] MEDS: RALTEGRAVIR POTASSIUM 400 MG TAB PO SCH ×2 (10:06→18:04)
[2020-04-29] MEDS: RITONAVIR 100 MG TABLET PO SCH ×2 (10:07→18:04)
[2020-04-29] MEDS: DARUNAVIR ETHANOLATE 600 MG TAB PO SCH ×2 (10:07→18:04)
[2020-04-29] MEDS: SACUBITRIL/VALSARTAN 24 MG-26 MG TABLET PO SCH ×2 (10:08→21:26)
[2020-04-29] MEDS: DULoxetine HCL 30 MG CAPSULE.DR PO SCH ×2 (10:08→21:26)
[2020-04-29] MEDS: amLODIPine BESYLATE 10 MG TABLET (FP) PO SCH (10:09)
[2020-04-29] MEDS: SODIUM ZIRCONIUM CYCLOSILICATE (LOKELMA) 5 GM PACKET PO SCH ×2 (10:09→10:45)
[2020-04-29] MEDS: ZINC SULFATE 220 MG CAPSULE (FP) PO SCH (10:10)
[2020-04-29] MEDS: metoPROLOL SUCCINATE 25 MG TAB.SR.24H (FP) PO SCH ×2 (10:12→21:26)
[2020-04-29] MEDS: PANTOPRAZOLE 40 MG TABLET PO SCH (10:12)
[2020-04-29] MEDS: ASCORBIC ACID 250 MG TABLET (FP) PO SCH (10:12)
[2020-04-29] MEDS ORDERED: SODIUM CHLORIDE 250 ML IV PRN (19:09)
[2020-04-29] MEDS: GABAPENTIN 300 MG CAPSULE PO SCH (21:26)
[2020-04-30] MEDS: GABAPENTIN 300 MG CAPSULE PO SCH ×2 (05:52→16:30)
[2020-04-30 07:15] LABS: BASO % 0.6 % (0-2.0); EOS % 3.7 % (0-4.5); HEMATOCRIT 21.8 % (32.4-45.2); HEMOGLOBIN 7.2 GM/dL (10.7-15.3); LYMPH % 23.5 % (8-40); MCH 29.4 pg (25.7-33.7); MCHC 33.2 g/dl (32.0-36.0); MEAN CELL VOLUME 88.6 fl (80-96); MONO % 7.3 % (3.8-10.2); NEUT % 64.9 % (42.8-82.8); PLATELET COUNT 172 K/MM3 (134-434); RBC 2.46 M/mm3 (3.60-5.2); RDW 16.4 % (11.6-15.6); WHITE BLOOD COUNT 5.2 K/mm3 (4.0-10.0)
[2020-04-30 07:34] LABS: CALCIUM 7.2 mg/dL (8.5-10.1)
[2020-04-30 07:35] LABS: BLOOD UREA NITROGEN 34.6 mg/dL (7-18)
[2020-04-30 07:37] LABS: ALBUMIN 1.8 g/dl (3.4-5.0)
[2020-04-30 07:38] LABS: PHOSPHOROUS 3.6 mg/dL (2.5-4.9)
[2020-04-30 07:40] LABS: BILIRUBIN,TOTAL 1.1 mg/dL (0.2-1); CREATININE 4.1 mg/dL (0.55-1.3)
[2020-04-30 07:41] LABS: MAGNESIUM 1.5 mg/dL (1.8-2.4)
[2020-04-30 07:42] LABS: TOT PROT 5.4 g/dl (6.4-8.2)
[2020-04-30] MEDS: PANTOPRAZOLE 40 MG TABLET PO SCH (10:29)
[2020-04-30] MEDS: DULoxetine HCL 30 MG CAPSULE.DR PO SCH (10:30)
[2020-04-30] MEDS: SEVELAMER CARBONATE 800 MG TAB (FP) PO SCH ×3 (10:30→18:15)
[2020-04-30] MEDS: RALTEGRAVIR POTASSIUM 400 MG TAB PO SCH ×3 (10:30→18:16)
[2020-04-30] MEDS: ASCORBIC ACID 250 MG TABLET (FP) PO SCH (10:30)
[2020-04-30] MEDS: ZINC SULFATE 220 MG CAPSULE (FP) PO SCH (10:30)
[2020-04-30] MEDS: RITONAVIR 100 MG TABLET PO SCH ×2 (10:31→18:16)
[2020-04-30] MEDS: ETRAVIRINE 100 MG TABLET PO SCH ×2 (10:31→18:16)
[2020-04-30] MEDS: DARUNAVIR ETHANOLATE 600 MG TAB PO SCH ×2 (10:32→18:16)
[2020-04-30] MEDS ORDERED: EPOETIN ALFA-EPBX 10,000 UNIT/ML VIAL IVPUSH ONE (12:00)
[2020-04-30] MEDS: metoPROLOL SUCCINATE 25 MG TAB.SR.24H (FP) PO SCH (16:22)
[2020-04-30] MEDS: SACUBITRIL/VALSARTAN 24 MG-26 MG TABLET PO SCH (16:22)
[2020-04-30] MEDS: amLODIPine BESYLATE 10 MG TABLET (FP) PO SCH (16:30)
[2020-05-01] MEDS: DULoxetine HCL 30 MG CAPSULE.DR PO SCH ×4 (00:59→21:31)
[2020-05-01] MEDS: GABAPENTIN 300 MG CAPSULE PO SCH ×5 (01:00→21:31)
[2020-05-01] MEDS: metoPROLOL SUCCINATE 25 MG TAB.SR.24H (FP) PO SCH ×4 (01:00→21:31)
[2020-05-01] MEDS ORDERED: PT OWN MED DRAWER 7, Y5N ONE ×6 (01:01→21:14)
[2020-05-01] MEDS: SACUBITRIL/VALSARTAN 24 MG-26 MG TABLET PO SCH ×4 (01:02→21:31)
[2020-05-01] MEDS: ETRAVIRINE 100 MG TABLET PO SCH ×2 (09:40→17:31)
[2020-05-01] MEDS: DARUNAVIR ETHANOLATE 600 MG TAB PO SCH ×2 (09:40→17:31)
[2020-05-01] MEDS: amLODIPine BESYLATE 10 MG TABLET (FP) PO SCH (09:41)
[2020-05-01] MEDS: ZINC SULFATE 220 MG CAPSULE (FP) PO SCH (09:41)
[2020-05-01] MEDS: ASCORBIC ACID 250 MG TABLET (FP) PO SCH (09:41)
[2020-05-01] MEDS: RITONAVIR 100 MG TABLET PO SCH ×2 (09:41→17:31)
[2020-05-01] MEDS: RALTEGRAVIR POTASSIUM 400 MG TAB PO SCH ×2 (09:41→17:31)
[2020-05-01] MEDS: PANTOPRAZOLE 40 MG TABLET PO SCH (09:41)
[2020-05-01] MEDS: SEVELAMER CARBONATE 800 MG TAB (FP) PO SCH ×3 (09:41→17:22)
[2020-05-01 11:50] LABS: BASO % 0.9 % (0-2.0); EOS % 2.8 % (0-4.5); HEMATOCRIT 23.8 % (32.4-45.2); HEMOGLOBIN 7.6 GM/dL (10.7-15.3); LYMPH % 19.4 % (8-40); MEAN CELL VOLUME 90.8 fl (80-96); MEAN PLT VOLUME 8.2 fl (7.5-11.1); MONO % 8.9 % (3.8-10.2); PLATELET COUNT 168 K/MM3 (134-434); RBC 2.63 M/mm3 (3.60-5.2); RDW 17.1 % (11.6-15.6); WHITE BLOOD COUNT 5.1 K/mm3 (4.0-10.0)
[2020-05-01 12:09] LABS: CALCIUM 8.1 mg/dL (8.5-10.1)
[2020-05-01 12:13] LABS: CREATININE 3.2 mg/dL (0.55-1.3)
[2020-05-02] MEDS: GABAPENTIN 300 MG CAPSULE PO SCH ×2 (06:53→22:59)
[2020-05-02 07:49] LABS: BASO % 0.7 % (0-2.0); EOS % 3.8 % (0-4.5); HEMATOCRIT 22.5 % (32.4-45.2); HEMOGLOBIN 7.4 GM/dL (10.7-15.3); LYMPH % 26.1 % (8-40); MCH 29.6 pg (25.7-33.7); MCHC 32.9 g/dl (32.0-36.0); MEAN CELL VOLUME 89.8 fl (80-96); MEAN PLT VOLUME 8.3 fl (7.5-11.1); MONO % 6.5 % (3.8-10.2); NEUT % 62.9 % (42.8-82.8); PLATELET COUNT 176 K/MM3 (134-434); RBC 2.51 M/mm3 (3.60-5.2); RDW 16.5 % (11.6-15.6); WHITE BLOOD COUNT 4.6 K/mm3 (4.0-10.0)
[2020-05-02 08:13] LABS: CALCIUM 7.5 mg/dL (8.5-10.1)
[2020-05-02 08:14] LABS: BLOOD UREA NITROGEN 24.6 mg/dL (7-18)
[2020-05-02 08:17] LABS: CREATININE 3.7 mg/dL (0.55-1.3)
[2020-05-02] MEDS: PANTOPRAZOLE 40 MG TABLET PO SCH (10:50)
[2020-05-02] MEDS: SEVELAMER CARBONATE 800 MG TAB (FP) PO SCH ×3 (10:50→17:18)
[2020-05-02] MEDS: ASCORBIC ACID 250 MG TABLET (FP) PO SCH (10:50)
[2020-05-02] MEDS: ZINC SULFATE 220 MG CAPSULE (FP) PO SCH (10:50)
[2020-05-02] MEDS: amLODIPine BESYLATE 10 MG TABLET (FP) PO SCH (10:51)
[2020-05-02] MEDS: metoPROLOL SUCCINATE 25 MG TAB.SR.24H (FP) PO SCH ×2 (10:51→22:58)
[2020-05-02] MEDS: RALTEGRAVIR POTASSIUM 400 MG TAB PO SCH ×2 (10:51→19:27)
[2020-05-02] MEDS: DULoxetine HCL 30 MG CAPSULE.DR PO SCH ×2 (10:51→22:59)
[2020-05-02] MEDS: SACUBITRIL/VALSARTAN 24 MG-26 MG TABLET PO SCH ×2 (10:51→22:59)
[2020-05-02] MEDS: DARUNAVIR ETHANOLATE 600 MG TAB PO SCH ×2 (10:51→19:26)
[2020-05-02] MEDS: ETRAVIRINE 100 MG TABLET PO SCH ×2 (10:52→19:26)
[2020-05-02] MEDS: RITONAVIR 100 MG TABLET PO SCH ×2 (10:53→19:26)
[2020-05-02] MEDS ORDERED: SODIUM CHLORIDE 250 ML IV PRN (11:03)
[2020-05-03] MEDS ORDERED: amLODIPine BESYLATE 5 MG TABLET (FP) PO SCH (09:56)
[2020-05-03] MEDS ORDERED: hydrALAZINE HCL 10 MG TABLET PO SCH (10:00)
[2020-05-03] MEDS ORDERED: ISOSORBIDE MONONITRATE 30 MG TAB.SR.24H (FP) PO SCH (10:00)
[2020-05-03] MEDS: SEVELAMER CARBONATE 800 MG TAB (FP) PO SCH (10:06)
[2020-05-03] MEDS: PANTOPRAZOLE 40 MG TABLET PO SCH (10:07)
[2020-05-03] MEDS: GABAPENTIN 300 MG CAPSULE PO SCH (10:07)
[2020-05-03] MEDS: ETRAVIRINE 100 MG TABLET PO SCH (10:08)
[2020-05-03] MEDS: RITONAVIR 100 MG TABLET PO SCH (10:08)
[2020-05-03] MEDS: DARUNAVIR ETHANOLATE 600 MG TAB PO SCH (10:09)
[2020-05-03] MEDS: RALTEGRAVIR POTASSIUM 400 MG TAB PO SCH (10:09)
[2020-05-03] MEDS: SACUBITRIL/VALSARTAN 24 MG-26 MG TABLET PO SCH (10:10)
[2020-05-03] MEDS: ASCORBIC ACID 250 MG TABLET (FP) PO SCH (10:10)
[2020-05-03] MEDS: ZINC SULFATE 220 MG CAPSULE (FP) PO SCH (10:10)
[2020-05-03] MEDS: DULoxetine HCL 30 MG CAPSULE.DR PO SCH (10:10)
[2020-05-03 10:17] VITALS: BP 130/75; PULSE 80; TEMP 98.4
== END 2020-05-03 11:18 | disposition home health service (06) | DRG 264 ==
LOC: JER 14:35 → JERBED 17:21 → J4W 04-25 10:19
PROVIDERS: ADMIT Internal Medicine
PROC: 30233N1 Transfusion of Nonautologous Red Blood Cells into Peripheral Vein, Percutaneous Approach (ICD-10-PCS; 2020-04-24)
PROC: 05HM33Z Insertion of Infusion Device into Right Internal Jugular Vein, Percutaneous Approach (ICD-10-PCS; 2020-04-25)
PROC: B513ZZA Fluoroscopy of Right Jugular Veins, Guidance (ICD-10-PCS; 2020-04-25)
PROC: 03180ZD Bypass Left Brachial Artery to Upper Arm Vein, Open Approach (ICD-10-PCS; principal; 2020-04-28)
PROC: 5A1D70Z Performance of Urinary Filtration, Intermittent, Less than 6 Hours Per Day (ICD-10-PCS; 2020-05-02)
DX: I13.2 Hypertensive heart and chronic kidney disease with heart failure and with stage 5 chronic kidney disease, or end stage renal disease (principal); N18.6 End stage renal disease; I50.43 Acute on chronic combined systolic (congestive) and diastolic (congestive) heart failure; I69.351 Hemiplegia and hemiparesis following cerebral infarction affecting right dominant side; N17.9 Acute kidney failure, unspecified; E87.5 Hyperkalemia; Z21 Asymptomatic human immunodeficiency virus [HIV] infection status; Z99.2 Dependence on renal dialysis; I25.10 Atherosclerotic heart disease of native coronary artery without angina pectoris; E78.5 Hyperlipidemia, unspecified; Z95.5 Presence of coronary angioplasty implant and graft; E87.70 Fluid overload, unspecified; D63.1 Anemia in chronic kidney disease
CPT/HCPCS: 36415; 36430; 71045-TC-FY; 76000-TC-FY; 80048; 80053; 81003; 82550; 82553; 83605; 83735; 83880; 84100; 84484; 85025; 85610; 85730; 86359; 86360; 86704; 86706; 86707; 86708; 86709; 86850; 86900; 86901; 86922; 87040; 87086; 87186; 87340; 87522; 93005; 93010; 93931; 93971; 94660; 94760; 99285-25; C9803; J0131; J1644; P9058; Q5106; U0003

== ENCOUNTER 2020-05-11 12:02 | Inpatient (IN) | payer OTHER ==
[2020-05-11] MEDS ORDERED: DEXAMETHASONE SOD PHOSPHATE 4 MG/1 ML VIAL IVPUSH ONE (13:12)
[2020-05-11] MEDS ORDERED: DEXAMETHASONE SOD PHOSPHATE 4 MG/1 ML VIAL ONE (14:29)
[2020-05-11 14:35] LABS: BASO % 0.5 % (0-2.0); EOS % 1.5 % (0-4.5); HEMOGLOBIN 7.5 GM/dL (10.7-15.3); LYMPH % 23.4 % (8-40); MCH 29.6 pg (25.7-33.7); MCHC 32.7 g/dl (32.0-36.0); MEAN CELL VOLUME 90.5 fl (80-96); MEAN PLT VOLUME 8.7 fl (7.5-11.1); NEUT % 64.6 % (42.8-82.8); PLATELET COUNT 169 K/MM3 (134-434); RBC 2.55 M/mm3 (3.60-5.2); RDW 17.7 % (11.6-15.6); WHITE BLOOD COUNT 2.8 K/mm3 (4.0-10.0)
[2020-05-11 14:36] LABS: INR 1.28 (0.83-1.09); PROTHROMBIN TIME (PATIENT) 15.6 SEC (9.7-13.0)
[2020-05-11 14:39] LABS: ACTIVATED PTT 38.4 SECONDS (25.2-36.5)
[2020-05-11 14:50] LABS: CHLORIDE 100 mmol/L (98-107); POTASSIUM 4.2 mmol/L (3.5-5.1); SODIUM 132 mmol/L (136-145)
[2020-05-11 14:54] LABS: CALCIUM 7.3 mg/dL (8.5-10.1)
[2020-05-11 14:55] LABS: ALBUMIN 2.1 g/dl (3.4-5.0); ANION GAP 7 MMOL/L (8-16); CO2 25 mmol/L (21-32); GLUCOSE,RANDOM 87 mg/dL (74-106)
[2020-05-11 14:59] LABS: BILIRUBIN,DIRECT 0.2 mg/dL (0.0-0.2); BILIRUBIN,TOTAL 0.4 mg/dL (0.2-1); SGOT/AST 24 U/L (15-37); SGPT/ALT 15 U/L (13-61); TOT PROT 6.2 g/dl (6.4-8.2)
[2020-05-11 15:01] LABS: ALK PHOS 76 U/L (45-117)
[2020-05-11 15:03] LABS: N-TERMINAL BNP 4648.7 pg/ml (5-125)
[2020-05-11 15:06] LABS: LDH 285 U/L (84-246)
[2020-05-11 15:07] LABS: BLOOD UREA NITROGEN 42.8 mg/dL (7-18); CREATININE 4.5 mg/dL (0.55-1.3)
[2020-05-11] MEDS ORDERED: AZITHROMYCIN IVPB 500 MG in DEXTROSE 5%-WATER - 250 ML IVPB ONE (16:24)
[2020-05-11] MEDS ORDERED: SODIUM CHLORIDE 250 ML IV PRN (16:40)
[2020-05-11] MEDS ORDERED: AZITHROMYCIN IVPB 500 MG/250 ML BAG IVPB ONE ×2 (17:06→17:22)
[2020-05-11] MEDS ORDERED: CEFTRIAXONE 1 GM/50 ML BAG ONE (17:06)
[2020-05-11] MEDS: CEFTRIAXONE 1 GM in DEXTROSE 5%-WATER - 50 ML IVPB SCH (17:20)
[2020-05-12] MEDS: RALTEGRAVIR POTASSIUM 400 MG TAB PO SCH ×3 (00:20→18:53)
[2020-05-12] MEDS: SACUBITRIL/VALSARTAN 24 MG-26 MG TABLET PO SCH ×3 (00:24→21:17)
[2020-05-12] MEDS: GABAPENTIN 100 MG CAPSULE PO SCH ×4 (00:24→21:17)
[2020-05-12 08:37] LABS: CHLORIDE 100 mmol/L (98-107); POTASSIUM 4.6 mmol/L (3.5-5.1); SODIUM 130 mmol/L (136-145)
[2020-05-12 08:42] LABS: HEMATOCRIT 25.4 % (32.4-45.2); HEMOGLOBIN 8.2 GM/dL (10.7-15.3); MCH 29.1 pg (25.7-33.7); MCHC 32.3 g/dl (32.0-36.0); MEAN CELL VOLUME 90.1 fl (80-96); MEAN PLT VOLUME 9.2 fl (7.5-11.1); PLATELET COUNT 154 K/MM3 (134-434); RBC 2.82 M/mm3 (3.60-5.2); RDW 17.2 % (11.6-15.6)
[2020-05-12 08:48] LABS: BILIRUBIN,TOTAL 0.3 mg/dL (0.2-1); TOT PROT 6.1 g/dl (6.4-8.2)
[2020-05-12 08:49] LABS: ALK PHOS 71 U/L (45-117)
[2020-05-12 08:51] LABS: CALCIUM 7.6 mg/dL (8.5-10.1)
[2020-05-12 08:52] LABS: ANION GAP 11 MMOL/L (8-16); BLOOD UREA NITROGEN 51.3 mg/dL (7-18); CO2 19 mmol/L (21-32); GLUCOSE,RANDOM 203 mg/dL (74-106)
[2020-05-12 08:53] LABS: CREATININE 4.9 mg/dL (0.55-1.3); SGOT/AST 23 U/L (15-37); SGPT/ALT 12 U/L (13-61)
[2020-05-12 08:54] LABS: PHOSPHOROUS 4.8 mg/dL (2.5-4.9)
[2020-05-12] MEDS ORDERED: cefTRIAXone SODIUM 1 GM VIAL ONE (09:08)
[2020-05-12] MEDS ORDERED: DEXTROSE 5%-WATER - 50 ML IVPB ONE (09:08)
[2020-05-12] MEDS: DARUNAVIR ETHANOLATE 600 MG TAB PO SCH ×2 (10:43→18:55)
[2020-05-12] MEDS: ETRAVIRINE 100 MG TABLET PO SCH ×2 (10:43→18:53)
[2020-05-12] MEDS: CEFTRIAXONE 1 GM in DEXTROSE 5%-WATER - 50 ML IVPB SCH (10:45)
[2020-05-12] MEDS: DEXAMETHASONE SOD PHOSPHATE 4 MG/1 ML VIAL IVPUSH SCH (10:46)
[2020-05-12] MEDS: PANTOPRAZOLE 40 MG TABLET PO SCH (10:46)
[2020-05-12] MEDS: ZINC SULFATE 220 MG CAPSULE (FP) PO SCH (10:46)
[2020-05-12] MEDS: RITONAVIR 100 MG TABLET PO SCH ×2 (10:47→18:55)
[2020-05-12] MEDS: SEVELAMER CARBONATE 800 MG TAB (FP) PO SCH ×3 (10:52→18:53)
[2020-05-12] MEDS ORDERED: ACETAMINOPHEN 325 MG TABLET (FP) PO PRN (14:28)
[2020-05-12] MEDS: AZITHROMYCIN IVPB 250 MG in DEXTROSE 5%-WATER - 250 ML IVPB SCH (14:37)
[2020-05-12] MEDS: POLYETHYLENE GLYCOL 3350 119 GM BTL PO SCH (15:22)
[2020-05-12] MEDS: MELATONIN 5 MG TABLETS PO SCH (21:17)
[2020-05-12] MEDS: DOCUSATE SODIUM 100 MG CAPSULE (FP) PO SCH (21:17)
[2020-05-13] MEDS: GABAPENTIN 100 MG CAPSULE PO SCH ×3 (06:33→22:12)
[2020-05-13] MEDS ORDERED: DEXTROSE 5%-WATER - 50 ML IVPB ONE (08:47)
[2020-05-13] MEDS ORDERED: cefTRIAXone SODIUM 1 GM VIAL ONE (08:48)
[2020-05-13] MEDS: CEFTRIAXONE 1 GM in DEXTROSE 5%-WATER - 50 ML IVPB SCH (09:29)
[2020-05-13] MEDS: RALTEGRAVIR POTASSIUM 400 MG TAB PO SCH ×2 (09:29→18:02)
[2020-05-13] MEDS: ETRAVIRINE 100 MG TABLET PO SCH ×2 (09:30→18:01)
[2020-05-13] MEDS: SEVELAMER CARBONATE 800 MG TAB (FP) PO SCH ×3 (09:30→17:21)
[2020-05-13] MEDS: ZINC SULFATE 220 MG CAPSULE (FP) PO SCH (09:30)
[2020-05-13] MEDS: PANTOPRAZOLE 40 MG TABLET PO SCH (09:30)
[2020-05-13] MEDS: RITONAVIR 100 MG TABLET PO SCH ×2 (09:31→18:02)
[2020-05-13] MEDS: DEXAMETHASONE SOD PHOSPHATE 4 MG/1 ML VIAL IVPUSH SCH (09:31)
[2020-05-13] MEDS: DARUNAVIR ETHANOLATE 600 MG TAB PO SCH ×2 (09:31→18:01)
[2020-05-13] MEDS: DOCUSATE SODIUM 100 MG CAPSULE (FP) PO SCH ×2 (09:31→22:11)
[2020-05-13] MEDS: SACUBITRIL/VALSARTAN 24 MG-26 MG TABLET PO SCH ×2 (09:32→22:10)
[2020-05-13] MEDS: POLYETHYLENE GLYCOL 3350 119 GM BTL PO SCH (09:32)
[2020-05-13] MEDS: AZITHROMYCIN IVPB 250 MG in DEXTROSE 5%-WATER - 250 ML IVPB SCH (10:05)
[2020-05-13 12:03] LABS: BASO % 0.1 % (0-2.0); HEMATOCRIT 23.3 % (32.4-45.2); HEMOGLOBIN 7.6 GM/dL (10.7-15.3); LYMPH % 4.4 % (8-40); MCH 29.3 pg (25.7-33.7); MCHC 32.8 g/dl (32.0-36.0); MEAN CELL VOLUME 89.2 fl (80-96); MEAN PLT VOLUME 8.9 fl (7.5-11.1); MONO % 5.9 % (3.8-10.2); NEUT % 89.6 % (42.8-82.8); PLATELET COUNT 201 K/MM3 (134-434); RBC 2.61 M/mm3 (3.60-5.2); RDW 17.5 % (11.6-15.6); WHITE BLOOD COUNT 5.9 K/mm3 (4.0-10.0)
[2020-05-13 12:28] LABS: POTASSIUM 3.9 mmol/L (3.5-5.1)
[2020-05-13 12:30] LABS: ALBUMIN 2.2 g/dl (3.4-5.0); BLOOD UREA NITROGEN 31.1 mg/dL (7-18)
[2020-05-13 12:33] LABS: CREATININE 3.4 mg/dL (0.55-1.3)
[2020-05-13 12:34] LABS: BILIRUBIN,TOTAL 0.2 mg/dL (0.2-1); TOT PROT 6.6 g/dl (6.4-8.2)
[2020-05-13] MEDS ORDERED: SODIUM CHLORIDE 250 ML IV PRN (16:02)
[2020-05-13] MEDS: INSULIN SLIDING SCALE (NOVOLOG) 1 VIAL SQ SCH ×2 (17:21→22:17)
[2020-05-13] MEDS: MELATONIN 5 MG TABLETS PO SCH (22:11)
[2020-05-14] MEDS: INSULIN SLIDING SCALE (NOVOLOG) 1 VIAL SQ SCH ×3 (07:15→18:23)
[2020-05-14] MEDS: GABAPENTIN 100 MG CAPSULE PO SCH ×3 (07:16→21:44)
[2020-05-14] MEDS ORDERED: cefTRIAXone SODIUM 1 GM VIAL ONE (07:54)
[2020-05-14] MEDS ORDERED: DEXTROSE 5%-WATER - 50 ML IVPB ONE (07:54)
[2020-05-14 09:22] LABS: EPI CELLS 27 /uL (0-25.1); HYALINE CASTS 1 /uL (0-3.1); URINE APPEARANCE CLEAR; URINE BACTERIA 33 /uL (0-1359); URINE BILIRUBIN NEGATIVE (NEGATIVE); URINE COLOR YELLOW; URINE GLUCOSE (UA) 2+ (NEGATIVE); URINE KETONE NEGATIVE (NEGATIVE); URINE LEUK ESTERASE NEGATIVE (NEGATIVE); URINE NITRITE NEGATIVE (NEGATIVE); URINE PROTEIN 4+ (NEGATIVE); URINE RBC 69 /uL (0-23.9); URINE UROBILINOGEN 0.2 mg/dL (0.2-1.0); URINE WBC 22 /uL (0-25.8)
[2020-05-14 09:50] LABS: HEMATOCRIT 21.9 % (32.4-45.2); HEMOGLOBIN 7.1 GM/dL (10.7-15.3); MCH 28.9 pg (25.7-33.7); MCHC 32.4 g/dl (32.0-36.0); MEAN CELL VOLUME 89.3 fl (80-96); MEAN PLT VOLUME 8.7 fl (7.5-11.1); PLATELET COUNT 216 K/MM3 (134-434); RBC 2.45 M/mm3 (3.60-5.2); RDW 16.9 % (11.6-15.6); WHITE BLOOD COUNT 5.7 K/mm3 (4.0-10.0)
[2020-05-14 10:23] LABS: POTASSIUM 3.6 mmol/L (3.5-5.1)
[2020-05-14 11:26] LABS: CALCIUM 7.9 mg/dL (8.5-10.1)
[2020-05-14 11:27] LABS: BLOOD UREA NITROGEN 46.8 mg/dL (7-18)
[2020-05-14 11:30] LABS: CREATININE 4.6 mg/dL (0.55-1.3)
[2020-05-14 11:42] VITALS: BMI 33.4
[2020-05-14] MEDS: CEFTRIAXONE 1 GM in DEXTROSE 5%-WATER - 50 ML IVPB SCH (11:55)
[2020-05-14] MEDS: SEVELAMER CARBONATE 800 MG TAB (FP) PO SCH ×3 (12:50→18:23)
[2020-05-14] MEDS: ZINC SULFATE 220 MG CAPSULE (FP) PO SCH (12:57)
[2020-05-14] MEDS: PANTOPRAZOLE 40 MG TABLET PO SCH (12:57)
[2020-05-14] MEDS: POLYETHYLENE GLYCOL 3350 119 GM BTL PO SCH (12:57)
[2020-05-14] MEDS: DEXAMETHASONE SOD PHOSPHATE 4 MG/1 ML VIAL IVPUSH SCH (12:57)
[2020-05-14] MEDS: DOCUSATE SODIUM 100 MG CAPSULE (FP) PO SCH ×2 (12:58→21:45)
[2020-05-14] MEDS: DARUNAVIR ETHANOLATE 600 MG TAB PO SCH ×2 (12:58→18:22)
[2020-05-14] MEDS: ETRAVIRINE 100 MG TABLET PO SCH ×2 (12:59→18:22)
[2020-05-14] MEDS: RALTEGRAVIR POTASSIUM 400 MG TAB PO SCH ×2 (12:59→18:23)
[2020-05-14] MEDS: RITONAVIR 100 MG TABLET PO SCH ×2 (13:00→19:28)
[2020-05-14] MEDS: SACUBITRIL/VALSARTAN 24 MG-26 MG TABLET PO SCH ×2 (13:01→21:49)
[2020-05-14] MEDS: MELATONIN 5 MG TABLETS PO SCH (21:45)
[2020-05-15] MEDS: INSULIN SLIDING SCALE (NOVOLOG) 1 VIAL SQ SCH ×5 (01:15→23:23)
[2020-05-15] MEDS: GABAPENTIN 100 MG CAPSULE PO SCH ×4 (06:23→23:15)
[2020-05-15] MEDS: SEVELAMER CARBONATE 800 MG TAB (FP) PO SCH ×3 (08:07→17:10)
[2020-05-15 09:12] LABS: POTASSIUM 4.1 mmol/L (3.5-5.1)
[2020-05-15 09:14] LABS: BLOOD UREA NITROGEN 30.2 mg/dL (7-18); CALCIUM 8.2 mg/dL (8.5-10.1)
[2020-05-15 09:15] LABS: ALBUMIN 2.1 g/dl (3.4-5.0); MAGNESIUM 1.8 mg/dL (1.8-2.4)
[2020-05-15 09:18] LABS: CREATININE 3.5 mg/dL (0.55-1.3); PHOSPHOROUS 2.5 mg/dL (2.5-4.9)
[2020-05-15 09:19] LABS: BILIRUBIN,TOTAL 0.3 mg/dL (0.2-1); TOT PROT 6.5 g/dl (6.4-8.2)
[2020-05-15] MEDS ORDERED: DEXTROSE 5%-WATER - 50 ML IVPB ONE (10:43)
[2020-05-15] MEDS ORDERED: cefTRIAXone SODIUM 1 GM VIAL ONE (10:43)
[2020-05-15] MEDS: RITONAVIR 100 MG TABLET PO SCH ×2 (11:10→17:36)
[2020-05-15] MEDS: RALTEGRAVIR POTASSIUM 400 MG TAB PO SCH ×2 (11:10→17:36)
[2020-05-15] MEDS: DOCUSATE SODIUM 100 MG CAPSULE (FP) PO SCH ×2 (11:11→23:14)
[2020-05-15] MEDS: SACUBITRIL/VALSARTAN 24 MG-26 MG TABLET PO SCH ×2 (11:11→23:15)
[2020-05-15] MEDS: DEXAMETHASONE SOD PHOSPHATE 4 MG/1 ML VIAL IVPUSH SCH (11:11)
[2020-05-15] MEDS: POLYETHYLENE GLYCOL 3350 119 GM BTL PO SCH (11:11)
[2020-05-15] MEDS: CEFTRIAXONE 1 GM in DEXTROSE 5%-WATER - 50 ML IVPB SCH (11:11)
[2020-05-15] MEDS: ZINC SULFATE 220 MG CAPSULE (FP) PO SCH (11:11)
[2020-05-15] MEDS: PANTOPRAZOLE 40 MG TABLET PO SCH (11:11)
[2020-05-15] MEDS: ETRAVIRINE 100 MG TABLET PO SCH ×2 (11:22→17:36)
[2020-05-15] MEDS: DARUNAVIR ETHANOLATE 600 MG TAB PO SCH ×2 (11:22→17:36)
[2020-05-15 13:06] LABS: BASO % 0.3 % (0-2.0); HEMATOCRIT 24.2 % (32.4-45.2); HEMOGLOBIN 7.8 GM/dL (10.7-15.3); LYMPH % 9.7 % (8-40); MCH 29.1 pg (25.7-33.7); MCHC 32.3 g/dl (32.0-36.0); MEAN CELL VOLUME 90.2 fl (80-96); MEAN PLT VOLUME 8.8 fl (7.5-11.1); PLATELET COUNT 243 K/MM3 (134-434); RBC 2.69 M/mm3 (3.60-5.2); RDW 17.6 % (11.6-15.6); WHITE BLOOD COUNT 7.2 K/mm3 (4.0-10.0)
[2020-05-15] MEDS ORDERED: SODIUM CHLORIDE 250 ML IV PRN (15:20)
[2020-05-15 22:05] LABS: MAGNESIUM 1.7 mg/dL (1.8-2.4)
[2020-05-15 22:09] LABS: PHOSPHOROUS 2.6 mg/dL (2.5-4.9)
[2020-05-15] MEDS: MELATONIN 5 MG TABLETS PO SCH (23:14)
[2020-05-16] MEDS ORDERED: cefTRIAXone SODIUM 1 GM VIAL ONE (08:08)
[2020-05-16] MEDS ORDERED: DEXTROSE 5%-WATER - 50 ML IVPB ONE (08:08)
[2020-05-16] MEDS: GABAPENTIN 100 MG CAPSULE PO SCH ×2 (08:17→13:36)
[2020-05-16] MEDS: SEVELAMER CARBONATE 800 MG TAB (FP) PO SCH ×3 (08:18→18:00)
[2020-05-16] MEDS: ETRAVIRINE 100 MG TABLET PO SCH ×2 (08:18→17:59)
[2020-05-16] MEDS: INSULIN SLIDING SCALE (NOVOLOG) 1 VIAL SQ SCH ×4 (08:18→23:40)
[2020-05-16] MEDS: RALTEGRAVIR POTASSIUM 400 MG TAB PO SCH ×2 (08:19→17:59)
[2020-05-16] MEDS: RITONAVIR 100 MG TABLET PO SCH ×2 (08:19→17:58)
[2020-05-16] MEDS: DARUNAVIR ETHANOLATE 600 MG TAB PO SCH ×2 (08:20→18:02)
[2020-05-16] MEDS: CEFTRIAXONE 1 GM in DEXTROSE 5%-WATER - 50 ML IVPB SCH (09:59)
[2020-05-16] MEDS: CHOLECALCIFEROL (VIT D3) 1,000 UNIT (25 MCG) TABLET PO SCH (09:59)
[2020-05-16] MEDS: PANTOPRAZOLE 40 MG TABLET PO SCH (09:59)
[2020-05-16] MEDS: ZINC SULFATE 220 MG CAPSULE (FP) PO SCH (09:59)
[2020-05-16] MEDS: POLYETHYLENE GLYCOL 3350 119 GM BTL PO SCH (10:00)
[2020-05-16] MEDS: DEXAMETHASONE SOD PHOSPHATE 4 MG/1 ML VIAL IVPUSH SCH (10:00)
[2020-05-16] MEDS: SACUBITRIL/VALSARTAN 24 MG-26 MG TABLET PO SCH (10:00)
[2020-05-16] MEDS: DOCUSATE SODIUM 100 MG CAPSULE (FP) PO SCH (10:01)
[2020-05-16] MEDS: DOPAMINE 400 MG/D5W - 400,000 MCG/250 ML INFUS.BAG IVPB SCH (23:55)
[2020-05-17] MEDS ORDERED: HEPARIN NA (PORCINE) 5,000 UNITS/ML 1ML VIAL IVPUSH ONE (00:16)
[2020-05-17] MEDS ORDERED: HEPARIN NA (PORCINE) 5,000 UNITS/ML 1ML VIAL IVPUSH PRN ×2 (00:16)
[2020-05-17] MEDS: SACUBITRIL/VALSARTAN 24 MG-26 MG TABLET PO SCH ×3 (01:00→22:59)
[2020-05-17] MEDS: DOCUSATE SODIUM 100 MG CAPSULE (FP) PO SCH ×3 (01:00→22:59)
[2020-05-17] MEDS: MELATONIN 5 MG TABLETS PO SCH ×2 (01:01→22:59)
[2020-05-17] MEDS: GABAPENTIN 100 MG CAPSULE PO SCH ×4 (01:01→22:59)
[2020-05-17] MEDS: INSULIN (LEVEMIR) 100 UNITS/ML UNITS SQ SCH ×3 (01:05→23:48)
[2020-05-17] MEDS: DOPAMINE 400 MG/D5W - 400,000 MCG/250 ML INFUS.BAG IVPB SCH ×2 (05:13→08:00)
[2020-05-17 05:15] LABS: POTASSIUM 5.6 mmol/L (3.5-5.1)
[2020-05-17 05:17] LABS: CALCIUM 8.5 mg/dL (8.5-10.1)
[2020-05-17 05:21] LABS: CREATININE 5.6 mg/dL (0.55-1.3)
[2020-05-17 05:22] LABS: BILIRUBIN,TOTAL 0.5 mg/dL (0.2-1); TOT PROT 6.7 g/dl (6.4-8.2)
[2020-05-17 05:40] LABS: BLOOD UREA NITROGEN 60.7 mg/dL (7-18)
[2020-05-17 06:27] LABS: ARTERIAL BLD GAS O2 SATURATION 89.3 mmHg (95-98); ARTERIAL BLOOD GAS BASE EXCESS -7.4 mmol/L (-2-2); ARTERIAL BLOOD GAS PO2 69.6 mmHg (80-100)
[2020-05-17 06:28] LABS: ALLENS TEST POSITIVE; VENT MODE A/C; VENT RATE 16
[2020-05-17 06:29] LABS: ARTERIAL BLOOD GAS pH 7.187 (7.350-7.450)
[2020-05-17] MEDS: HEPARIN INFUSION - 25,000 UNITS/500 ML INFUS.BAG IVPB SCH (06:53)
[2020-05-17] MEDS: INSULIN SLIDING SCALE (NOVOLOG) 1 VIAL SQ SCH ×4 (06:54→23:49)
[2020-05-17] MEDS: DEXAMETHASONE SOD PHOSPHATE 4 MG/1 ML VIAL IVPUSH SCH (10:50)
[2020-05-17] MEDS: RITONAVIR 100 MG TABLET PO SCH ×2 (10:50→17:32)
[2020-05-17] MEDS: DARUNAVIR ETHANOLATE 600 MG TAB PO SCH ×2 (10:50→17:32)
[2020-05-17] MEDS: POLYETHYLENE GLYCOL 3350 119 GM BTL PO SCH (10:51)
[2020-05-17] MEDS: RALTEGRAVIR POTASSIUM 400 MG TAB PO SCH ×2 (10:51→17:32)
[2020-05-17] MEDS: SEVELAMER CARBONATE 800 MG TAB (FP) PO SCH ×3 (10:51→16:37)
[2020-05-17] MEDS: ETRAVIRINE 100 MG TABLET PO SCH ×2 (10:51→17:32)
[2020-05-17] MEDS: ZINC SULFATE 220 MG CAPSULE (FP) PO SCH (10:52)
[2020-05-17] MEDS: PANTOPRAZOLE 40 MG TABLET PO SCH (10:52)
[2020-05-17] MEDS: CHOLECALCIFEROL (VIT D3) 1,000 UNIT (25 MCG) TABLET PO SCH (10:52)
[2020-05-17] MEDS ORDERED: SODIUM ZIRCONIUM CYCLOSILICATE (LOKELMA) 5 GM PACKET PO STA (12:08)
[2020-05-17 14:53] LABS: HEMATOCRIT 26.7 % (32.4-45.2); HEMOGLOBIN 7.8 GM/dL (10.7-15.3); MCHC 29.4 g/dl (32.0-36.0); MEAN CELL VOLUME 101.7 fl (80-96); RBC 2.62 M/mm3 (3.60-5.2); WHITE BLOOD COUNT 19.3 K/mm3 (4.0-10.0)
[2020-05-17 14:54] LABS: MEAN PLT VOLUME 9.3 fl (7.5-11.1); PLATELET COUNT 101 K/MM3 (134-434); RDW 18.7 % (11.6-15.6)
[2020-05-17 16:53] LABS: ANISOCYTOSIS 3+; MACROCYTOSIS 2+
[2020-05-18 06:45] LABS: BASO % 0.4 % (0-2.0); HEMATOCRIT 25.2 % (32.4-45.2); HEMOGLOBIN 8.2 GM/dL (10.7-15.3); LYMPH % 5.5 % (8-40); MCH 28.7 pg (25.7-33.7); MCHC 32.8 g/dl (32.0-36.0); MEAN CELL VOLUME 87.5 fl (80-96); MEAN PLT VOLUME 8.5 fl (7.5-11.1); MONO % 3.5 % (3.8-10.2); NEUT % 90.6 % (42.8-82.8); PLATELET COUNT 245 K/MM3 (134-434); RBC 2.88 M/mm3 (3.60-5.2); RDW 16.9 % (11.6-15.6); WHITE BLOOD COUNT 12.3 K/mm3 (4.0-10.0)
[2020-05-18 06:58] LABS: INR 1.18 (0.83-1.09); PROTHROMBIN TIME (PATIENT) 14.4 SEC (9.7-13.0)
[2020-05-18 07:03] LABS: ALBUMIN 1.8 g/dl (3.4-5.0); CALCIUM 7.9 mg/dL (8.5-10.1)
[2020-05-18 07:04] LABS: MAGNESIUM 1.7 mg/dL (1.8-2.4)
[2020-05-18 07:07] LABS: CREATININE 5.9 mg/dL (0.55-1.3); PHOSPHOROUS 6.4 mg/dL (2.5-4.9)
[2020-05-18 07:08] LABS: BILIRUBIN,TOTAL 0.5 mg/dL (0.2-1); TOT PROT 6.6 g/dl (6.4-8.2)
[2020-05-18 07:39] LABS: ACTIVATED PTT 121.5 SECONDS (25.2-36.5)
[2020-05-18] MEDS: INSULIN SLIDING SCALE (NOVOLOG) 1 VIAL SQ SCH ×4 (07:47→22:16)
[2020-05-18] MEDS: GABAPENTIN 100 MG CAPSULE PO SCH (07:47)
[2020-05-18] MEDS: INSULIN (LEVEMIR) 100 UNITS/ML UNITS SQ SCH ×2 (07:51→22:18)
[2020-05-18] MEDS: DOPAMINE 400 MG/D5W - 400,000 MCG/250 ML INFUS.BAG IVPB SCH (09:10)
[2020-05-18] MEDS: SEVELAMER CARBONATE 800 MG TAB (FP) PO SCH (09:23)
[2020-05-18] MEDS: RALTEGRAVIR POTASSIUM 400 MG TAB PO SCH ×2 (09:24→17:32)
[2020-05-18] MEDS: ETRAVIRINE 100 MG TABLET PO SCH ×2 (09:24→17:32)
[2020-05-18] MEDS: RITONAVIR 100 MG TABLET PO SCH (09:24)
[2020-05-18] MEDS: DARUNAVIR ETHANOLATE 600 MG TAB PO SCH (09:24)
[2020-05-18] MEDS: PANTOPRAZOLE 40 MG TABLET PO SCH (09:25)
[2020-05-18] MEDS: DOCUSATE SODIUM 100 MG CAPSULE (FP) PO SCH (09:25)
[2020-05-18] MEDS: SACUBITRIL/VALSARTAN 24 MG-26 MG TABLET PO SCH ×2 (09:25→21:56)
[2020-05-18] MEDS: POLYETHYLENE GLYCOL 3350 119 GM BTL PO SCH (09:25)
[2020-05-18] MEDS: ZINC SULFATE 220 MG CAPSULE (FP) PO SCH (09:25)
[2020-05-18] MEDS: DEXAMETHASONE SOD PHOSPHATE 4 MG/1 ML VIAL IVPUSH SCH (09:26)
[2020-05-18] MEDS: CHOLECALCIFEROL (VIT D3) 1,000 UNIT (25 MCG) TABLET PO SCH (09:26)
[2020-05-18] MEDS ORDERED: CHOLECALCIFEROL (VIT D3) 1,000 UNIT (25 MCG) TABLET GT SCH (10:02)
[2020-05-18] MEDS ORDERED: ACETAMINOPHEN 650 MG/20.3 ML ORAL SOLUTION (CUPS) GT PRN (10:02)
[2020-05-18] MEDS ORDERED: MELATONIN 5 MG TABLETS NR SCH (10:05)
[2020-05-18] MEDS ORDERED: SEVELAMER CARBONATE 0.8 GM POWDER PACKET GT SCH (10:07)
[2020-05-18] MEDS ORDERED: ZINC SULFATE 220 MG CAPSULE (FP) GT SCH (10:08)
[2020-05-18] MEDS: HEPARIN INFUSION - 25,000 UNITS/500 ML INFUS.BAG IVPB SCH (10:46)
[2020-05-18] MEDS ORDERED: VANCOMYCIN HCL 1,500 MG in DEXTROSE 5%-WATER - 500 ML IVPB ONE (11:00)
[2020-05-18] MEDS: SEVELAMER CARBONATE 0.8 GM POWDER PACKET GT SCH ×2 (11:01→17:06)
[2020-05-18] MEDS: GABAPENTIN 100 MG CAPSULE GT SCH ×2 (12:59→22:03)
[2020-05-18] MEDS: RITONAVIR ORAL SOLUTION 80 MG/ML PO SCH (17:32)
[2020-05-18] MEDS: DARUNAVIR ETHANOLATE 100 MG/ML BULK BOTTLE GT SCH (17:33)
[2020-05-18] MEDS ORDERED: PT OWN MED DRAWER 7, Y5N ONE (22:00)
[2020-05-18] MEDS: DOCUSATE NA 100 MG/10 ML UNIT-DOSE CUPS GT SCH (22:07)
[2020-05-18] MEDS: FAMOTIDINE 40 MG/5 ML ORAL SUSPENSION NR SCH (22:47)
[2020-05-19] MEDS: DOPAMINE 400 MG/D5W - 400,000 MCG/250 ML INFUS.BAG IVPB SCH ×3 (00:31→11:19)
[2020-05-19] MEDS: HEPARIN INFUSION - 25,000 UNITS/500 ML INFUS.BAG IVPB SCH ×2 (00:32→13:54)
[2020-05-19] MEDS: GABAPENTIN 100 MG CAPSULE GT SCH (05:33)
[2020-05-19 06:36] LABS: ARTERIAL BLD GAS O2 SATURATION 97.1 mmHg (95-98); ARTERIAL BLOOD GAS BASE EXCESS -6.9 mmol/L (-2-2); ARTERIAL BLOOD GAS pH 7.216 (7.350-7.450)
[2020-05-19 06:51] LABS: ALLENS TEST POSITIVE; VENT MODE A/C; VENT RATE 16
[2020-05-19] MEDS: INSULIN SLIDING SCALE (NOVOLOG) 1 VIAL SQ SCH ×3 (06:59→17:26)
[2020-05-19] MEDS: INSULIN (LEVEMIR) 100 UNITS/ML UNITS SQ SCH (07:10)
[2020-05-19] MEDS: SEVELAMER CARBONATE 0.8 GM POWDER PACKET GT SCH ×3 (08:00→17:26)
[2020-05-19] MEDS ORDERED: PT OWN MED DRAWER 7, Y5N ONE ×4 (08:31→18:22)
[2020-05-19] MEDS: RALTEGRAVIR POTASSIUM 400 MG TAB PO SCH (09:00)
[2020-05-19] MEDS ORDERED: NOREPINEPHRINE BITARTRATE 8,000 MCG/500 ML BAG IVPB ONE (09:20)
[2020-05-19] MEDS ORDERED: NOREPINEPHRINE BITARTRATE 16,000 MCG in SODIUM CHLORIDE 484 ML IV SCH (09:30)
[2020-05-19] MEDS: POLYETHYLENE GLYCOL 3350 119 GM BTL PO SCH (10:00)
[2020-05-19] MEDS: DOCUSATE NA 100 MG/10 ML UNIT-DOSE CUPS GT SCH (10:00)
[2020-05-19] MEDS: DEXAMETHASONE SOD PHOSPHATE 4 MG/1 ML VIAL IVPUSH SCH (10:00)
[2020-05-19] MEDS: SACUBITRIL/VALSARTAN 24 MG-26 MG TABLET PO SCH (10:00)
[2020-05-19] MEDS: ETRAVIRINE 100 MG TABLET PO SCH (10:00)
[2020-05-19] MEDS: FAMOTIDINE 40 MG/5 ML ORAL SUSPENSION NR SCH (10:00)
[2020-05-19] MEDS ORDERED: GABAPENTIN 250 MG/5 ML ORAL SOLUTION, 470 ML BOTTLE GT SCH (11:15)
[2020-05-19] MEDS ORDERED: FAMOTIDINE 40 MG/5 ML ORAL SUSPENSION NGT SCH (11:16)
[2020-05-19] MEDS: DARUNAVIR ETHANOLATE 100 MG/ML BULK BOTTLE GT SCH (13:43)
[2020-05-19] MEDS: RITONAVIR ORAL SOLUTION 80 MG/ML PO SCH (13:44)
[2020-05-19] MEDS ORDERED: SODIUM CHLORIDE 250 ML IV PRN (13:50)
[2020-05-19] MEDS: ALBUMIN HUMAN 25% 12.5 GM/50 ML VIAL IVPB SCH ×4 (15:22→15:48)
[2020-05-19 15:36] LABS: BASO % 0.3 % (0-2.0); HEMATOCRIT 22.6 % (32.4-45.2); HEMOGLOBIN 7.1 GM/dL (10.7-15.3); LYMPH % 2.5 % (8-40); MCH 28.2 pg (25.7-33.7); MCHC 31.2 g/dl (32.0-36.0); MEAN CELL VOLUME 90.2 fl (80-96); MEAN PLT VOLUME 9.4 fl (7.5-11.1); NEUT % 94.2 % (42.8-82.8); PLATELET COUNT 200 K/MM3 (134-434); RBC 2.51 M/mm3 (3.60-5.2); RDW 17.2 % (11.6-15.6); WHITE BLOOD COUNT 18.3 K/mm3 (4.0-10.0)
[2020-05-19 15:37] LABS: POTASSIUM 5.1 mmol/L (3.5-5.1)
[2020-05-19 15:39] LABS: CALCIUM 7.4 mg/dL (8.5-10.1)
[2020-05-19 15:40] LABS: ALBUMIN 2.4 g/dl (3.4-5.0); BLOOD UREA NITROGEN 67.2 mg/dL (7-18); MAGNESIUM 1.8 mg/dL (1.8-2.4)
[2020-05-19 15:43] LABS: CREATININE 5.8 mg/dL (0.55-1.3); PHOSPHOROUS 5.4 mg/dL (2.5-4.9)
[2020-05-19 15:44] LABS: BILIRUBIN,TOTAL 0.5 mg/dL (0.2-1)
[2020-05-19 16:14] VITALS: TEMP 97.3
[2020-05-19 16:41] VITALS: BP 78/40; PULSE 98
[2020-05-19 16:52] LABS: ANISOCYTOSIS 1+; MACROCYTOSIS 1+; PLATELET ESTIMATE NORMAL
[2020-05-19 17:06] LABS: ARTERIAL BLD GAS O2 SATURATION 99.4 mmHg (95-98); ARTERIAL BLOOD GAS BASE EXCESS -2.3 mmol/L (-2-2); ARTERIAL BLOOD GAS PO2 227.8 mmHg (80-100)
[2020-05-19 17:09] LABS: VENT MODE A/C; VENT RATE 16
[2020-05-19] MEDS ORDERED: RALTEGRAVIR 100 MG GT SCH (18:30)
== END 2020-05-19 17:30 | disposition expired | DRG 208 ==
LOC: JER 12:02 → JERBED 15:55 → J6WEST-2 22:36 → J8W 05-16 17:50 → JICU-6 05-17 00:47 → JICU 05-18 05:19
PROVIDERS: ATTEND Internal Medicine Pulmonary Disease
PROC: XW13325 Transfusion of Convalescent Plasma (Nonautologous) into Peripheral Vein, Percutaneous Approach, New Technology Group 5 (ICD-10-PCS; 2020-05-12)
PROC: XW033E5 Introduction of Remdesivir Anti-infective into Peripheral Vein, Percutaneous Approach, New Technology Group 5 (ICD-10-PCS; 2020-05-12)
PROC: 5A1945Z Respiratory Ventilation, 24-96 Consecutive Hours (ICD-10-PCS; principal; 2020-05-17)
PROC: 0BH17EZ Insertion of Endotracheal Airway into Trachea, Via Natural or Artificial Opening (ICD-10-PCS; 2020-05-17)
PROC: 5A12012 Performance of Cardiac Output, Single, Manual (ICD-10-PCS; 2020-05-17)
PROC: 5A1D70Z Performance of Urinary Filtration, Intermittent, Less than 6 Hours Per Day (ICD-10-PCS; 2020-05-19)
DX: U07.1 COVID-19 (principal); J12.82 Pneumonia due to coronavirus disease 2019; J96.01 Acute respiratory failure with hypoxia; N18.6 End stage renal disease; G81.91 Hemiplegia, unspecified affecting right dominant side; I50.22 Chronic systolic (congestive) heart failure; G93.1 Anoxic brain damage, not elsewhere classified; I13.2 Hypertensive heart and chronic kidney disease with heart failure and with stage 5 chronic kidney disease, or end stage renal disease; I46.9 Cardiac arrest, cause unspecified; E11.9 Type 2 diabetes mellitus without complications; E78.5 Hyperlipidemia, unspecified; I25.10 Atherosclerotic heart disease of native coronary artery without angina pectoris; I10 Essential (primary) hypertension; Z21 Asymptomatic human immunodeficiency virus [HIV] infection status; T68.XXXA Hypothermia, initial encounter; Z95.5 Presence of coronary angioplasty implant and graft; E87.5 Hyperkalemia; D63.1 Anemia in chronic kidney disease; D72.819 Decreased white blood cell count, unspecified; E11.22 Type 2 diabetes mellitus with diabetic chronic kidney disease; Z99.2 Dependence on renal dialysis; E66.9 Obesity, unspecified; Z68.33 Body mass index [BMI] 33.0-33.9, adult; F03.90 Unspecified dementia, unspecified severity, without behavioral disturbance, psychotic disturbance, mood disturbance, and anxiety
CPT/HCPCS: 31500; 36415; 36430; 36600; 71045-TC-FY; 80048; 80053; 81003; 82248; 82550; 82553; 82728; 82803; 82962; 83605; 83615; 83735; 83880; 84100; 84484; 85025; 85027; 85379; 85610; 85730; 86140; 86850; 86900; 86901; 87040; 87070; 87077; 87086; 87186; 87205; 87804; 87899; 93005; 93010; 94002; 94761; 97161-GP; 99285-25; C9803; J1644; P9017; P9047; U0003